=== PATIENT | male | born 1945 | race Caucasian/White ===

== ENCOUNTER 2021-06-04 10:02 | Inpatient (IN) | payer OTHER ==
--- OUTSIDE RECORDS SUMMARY | 2021-06-04 10:14 | XMS REPORT | Continuity of Care Document ---
:1945 Author Organization [facility] t Address [address] [place] [address] Care Team Providers Name Role Phone MARYELLEN EPPERSON Attending Clinician Unavailable KRISTY Attending Clinician Unavailable JOEY MARTINES Attending Clinician Unavailable TRENA MCGEE Attending Clinician Unavailable MARY Attending Clinician Unavailable SAI Attending Clinician Unavailable BRIDGET ROGERS Admitting Clinician Unavailable Payers Payer Name Policy Type Policy Number Effective Date Expiration Date S [facility] MEDICARE A B [id number] 2010 00:00:00 [employer] [facility] [place] [id number] 2010 00:00:00 MEDICARE PART A [id number] \T\ B - MEDICARE [facility] [id number] 2010 [facility] [place] 00:00:00 Problems This patient has no known problems. Allergies, Adverse Reactions, Alerts Allergy Allergy Status Severity Reaction(s) Onset Inactive Treating Comm ents Source Name Type Date Date Clinician NO KNOWN Allergy Active [facility] Medications This patient has no known medications. Vital Signs Vital Name Observation Time Observation Value Comments Source HEIGHT 2019-09-15 00:00:00 182.9 cm WEIGHT 2019-09-15 00:00:00 117.2 kg HEIGHT 2020-06-02 11:47:00 182.9 cm WEIGHT 2020-06-02 11:47:00 122.471 kg HEIGHT 2020-06-02 11:47:00 182.9 cm WEIGHT 2020-06-02 11:47:00 122.471 kg HEIGHT 2019-09-15 00:00:00 182.9 cm WEIGHT 2019-09-15 00:00:00 117.2 kg Procedures This patient has no known procedures. Encounters Start End Encounter Admission Attending Care Care Encounter Source Date/Time Date/Time Type Type Clinicians Facility Department ID 2019-09-15 Inpatient ER ANIRUDH [facility] Emergency [id number] [facility] 16:35:29 ROSS JENNINGS 2020-12-19 2020-12-19 Outpatient [facility] [id number] [facility] 15:47:55 16:50:59 [facility] 2020-12-19 2020-12-19 Outpatient ALBERTOMIRANDA [facility] [id number] [facility] 15:47:35 16:22:05 [facility] 2020-09-06 2020-09-06 Outpatient [facility] [id number] [facility] 13:24:55 15:41:25 [facility] 2020-09-05 2020-09-05 Outpatient SHANAE MARTINES, [facility] [id number] [facility] 00:00:00 00:00:00 DIPABEN 2020-06-27 2020-06-27 Outpatient [facility] [id number] [place] 00:00:00 00:00:[address] 2020-06-02 2020-06-02 Emergency ER [facility] Emergency [id number] [facility] 11:27:00 11:27:00 2020-05-30 2020-05-30 Outpatient [facility] [id number] [place] 00:00:00 00:00:[address] 2019-09-15 2019-09-15 Emergency [facility] [id number] [facility] 16:22:00 16:22:00 [id number] 2019-07-23 2019-07-23 Outpatient SIFF, [facility] [id number] [place] 00:00:00 00:00:00 JOHNNY [address] Results Test Description Test Time Test Comments Results Result Sourc e Comments CT, CHEST, WITHOUT 2020-09-06 Unlisted IV CONTRAST 14:48:00 Reason for Exam - Click [facility] Yes and Enter [facility] Reason CENTERName: [facility] TURNER->Samara freeman Reason : 1945 for Exam->HRCT Sex: scan of the M chest WO contrast. LTFU FI study, NAL REPORT PATIENT [id number]. ID: [id number] EXAM: CT Chest WITHOUT contrastINDICATION: Shortness of breathHRCT scan of the chest WO contrast. LTFU study, [id number]. COMPARISON: None TECHNIQUE:Chest was scanned utilizing a multidetector helical scanner from the lung apex through the level of the adrenal glands without administration of IV contrast. Absence of intravenous contrast decreases sensitivity for detection of lymphadenopathy and vascular pathology. Inspiration and expiration supine, and prone imaging was performed with axial, sagittal and coronal reconstructions. Research protocol was performed. IV CONTRAST: None COMPLICATIONS: None RADIATION DOSE: Total DLP: 2050.52 mGy*cm Estimated effective dose: (DLP x 0.014 x size factor) mSv CTDIvol has been reviewed. It is below the limits set by the Radiation Protocol Committee (RPC). FINDINGS:Annotations given as (series/image number) LINES/ TUBES: None. LUNGS AND AIRWAYS: No pulmonary consolidation or suspicious airspace opacity. Mild centrilobular emphysema. There is mild central bronchiectasis. There is mild subpleural reticulation in supine imaging that resolves prone compatible with dependent lower lobe atelectasis. There is mild mosaic attenuation on expiration compatible with mild air trapping. Trachea and main bronchi are clear. PLEURA: No pleural effusion or pneumothorax. HEART AND MEDIASTINUM: Included portions of the thyroid appear heterogeneous and mildly enlarged. No mediastinal, hilar or axillary lymphadenopathy. There are several prevascular lymph nodes containing calcification. The heart is moderately enlarged with particular prominence of the left atrium. There is no pericardial effusion. The thoracic aorta is atherosclerotic with scattered calcified plaque, and the upper aspect of an abdominal aortic stent graft and abdominal aortic aneurysm is visualized. The thoracic aorta is ectatic with the ascending aorta measuring 4.4 cm and proximal descending aorta measuring 3.5 cm. The main pulmonary artery is mildly dilated measuring 3.2 cm. There is extensive triple-vessel coronary calcification. UPPER ABDOMEN: There is suboptimal evaluation of the liver due to thin slicing and beam hardening artifact. There is a 1.1 cm hypodensity in the left lobe which is not further characterized. Calcified granulomata are seen in the spleen. There is a 1.4 cm hypodensity in the lateral upper pole left kidney, not further characterized due to artifact. BONES: No acute or suspicious bony abnormality. Degenerative changes are seen in the spine. SOFT TISSUES: Superficial surrounding soft tissue unremarkable. IMPRESSION: 1. No pulmonary consolidation or suspicious airspace opacity. Mild centrilobular emphysema and mild central bronchiectasis noted. Changes compatible with mild air trapping noted. 2. The thoracic aorta is ectatic measuring 4.4 cm ascending, and 3.5 cm proximal descending. There is partial visualization of an abdominal aortic aneurysm and stent graft. 3. Mild dilatation of the main pulmonary artery measuring 3.2 cm which may be seen in the setting of pulmonary hypertension. 4. Extensive triple-vessel coronary calcification. Cardiomegaly with enlargement of the left atrium noted. 5. Small hypodensities in the liver and left kidney are not characterized due to thin slice beam hardening artifact. Signed: Karine Milner Verified Date/Time: 09/06/2020 14:48:56 Reading Location: [facility] Reading Room [address] [place] [address] -GLUCOSE METER 2020-06-02 14:56:00 Test Item Value Reference Range Interpretation Comme nts POC-GLUCOSE METER ([facility]) 108 mg/dL 70-110 : TESTED AT [facility] [address] [facility] (test code = 1538) [facility] X, [address]: Shoe Laster/Techni lavinia ID = [id number] for ANA BEASLEY POCT-GLUCOSE [id number] 14:07:00 Test Item Value Reference Range Interpretation Comments POC-GLUCOSE METER 119 mg/dL 70-110 H : TESTED A T [facility] [address] ([place]) (test code = [facility] [place], 1538) [address]: Shoe Laster/Techni lavinia ID = [id number] for PAULIE CONNOR BASIC METABOLIC [id number] 12:51:00 Test Item Value Reference Range Interpretation Comments SODIUM (BEAKER) 141 meq/L 136-145 (test code = 381) POTASSIUM (BEAKER) 3.6 meq/L 3.5-5.1 (test code = 379) CHLORIDE (BEAKER) 98 meq/L 98-107 (test code = 382) CO2 (BEAKER) (test 32 meq/L 22-29 H code = 355) BLOOD UREA NITROGEN 17 mg/dL 7-21 (BEAKER) (test code = 354) CREATININE (BEAKER) 1.34 mg/dL 0.57-1.25 H (test code = 358) GLUCOSE RANDOM 51 mg/dL 70-105 L (BEAKER) (test code = 652) CALCIUM (BEAKER) 8.9 mg/dL 8.4-10.2 (test code = 697) EGFR (BEAKER) (test 52 mL/min/1.73 ESTIMA COCO GFR IS code = 1092) sq m NOT ACCURATE CREATININE CLEARANCE IN PREDICTING GLOMERULAR FILTRATION RATE . ESTIMATED GFR I S NOT APPLICABLE FOR DIALYSIS PATIEN TS. Shoe Laster ID - EDASICBC W/PLT COUNT & AUTO [id number] 12:33:00 Test Item Value Reference Range Interpretation Comments WHITE BLOOD CELL COUNT (BEAKER) 5.6 K/ L 3.5-10.5 (test code = 775) RED BLOOD CELL COUNT (BEAKER) 4.78 M/ L 4.63-6.08 (test code = 761) HEMOGLOBIN (BEAKER) (test code = 14.0 GM/DL 13.7-17.5 410) HEMATOCRIT (BEAKER) (test code = 40.7 % 40.1-51.0 411) MEAN CORPUSCULAR VOLUME (BEAKER) 85.1 fL 79.0-92.2 (test code = 753) MEAN CORPUSCULAR HEMOGLOBIN 29.3 pg 25.7-32.2 (BEAKER) (test code = 751) MEAN CORPUSCULAR HEMOGLOBIN CONC 34.4 GM/DL 32.3-36.5 (BEAKER) (test code = 752) RED CELL DISTRIBUTION WIDTH 13.2 % 11.6-14.4 (BEAKER) (test code = 412) PLATELET COUNT (BEAKER) (test 164 K/CU MM 150-450 code = 756) MEAN PLATELET VOLUME (BEAKER) 9.4 fL 9.4-12.4 (test code = 754) NUCLEATED RED BLOOD CELLS 0 /100 WBC 0-0 (BEAKER) (test code = 413) NEUTROPHILS RELATIVE PERCENT 70 % (BEAKER) (test code = 429) LYMPHOCYTES RELATIVE PERCENT 16 % (BEAKER) (test code = 430) MONOCYTES RELATIVE PERCENT 12 % (BEAKER) (test code = 431) EOSINOPHILS RELATIVE PERCENT 0 % (BEAKER) (test code = 432) BASOPHILS RELATIVE PERCENT 1 % (BEAKER) (test code = 437) NEUTROPHILS ABSOLUTE COUNT 3.94 K/ L 1.78-5.38 (BEAKER) (test code = 670) LYMPHOCYTES ABSOLUTE COUNT 0.92 K/ L 1.32-3.57 L (BEAKER) (test code = 414) MONOCYTES ABSOLUTE COUNT (BEAKER) 0.67 K/ L 0.30-0.82 (test code = 415) EOSINOPHILS ABSOLUTE COUNT 0.02 K/ L 0.04-0.54 L (BEAKER) (test code = 416) BASOPHILS ABSOLUTE COUNT (BEAKER) 0.04 K/ L 0.01-0.08 (test code = 417) IMMATURE GRANULOCYTES-RELATIVE 1 % 0-1 PERCENT (BEAKER) (test code = 2801) SARS-COV2/RT-PCR ([facility])2019-10-05 23:09:00 Test Item Value Reference Range Interpretation Comments SARS-COV2/RT-PCR (test code = Negative Not Detected, Negative 1479171) SARS-COV-2 PERFORMING LAB CPL (test code = 8789134) POCT-GLUCOSE [id number] 09:16:00 Test Item Value Reference Range Interpretation Comments POC-GLUCOSE METER 94 mg/dL 70-110 : TESTED A T [facility] [address] (BEAKER) (test code = [facility] [place], 1538) [address]: Shoe Laster/Techni lavinia ID = [id number] for BUTCH CASTRO BASIC METABOLIC [id number] 05:39:00 Test Item Value Reference Range Interpretation Comments SODIUM (BEAKER) 140 meq/L 136-145 (test code = 381) POTASSIUM (BEAKER) 4.1 meq/L 3.5-5.1 Specimen moderately (test code = 379) hemolyzed CHLORIDE (BEAKER) 105 meq/L 98-107 (test code = 382) CO2 (BEAKER) (test 26 meq/L 22-29 code = 355) BLOOD UREA NITROGEN 14 mg/dL 7-21 (BEAKER) (test code = 354) CREATININE (BEAKER) 0.68 mg/dL 0.57-1.25 Specimen moderately (test code = 358) hemolyzed GLUCOSE RANDOM 83 mg/dL 70-105 (BEAKER) (test code = 652) CALCIUM (BEAKER) 8.8 mg/dL 8.4-10.2 (test code = 697) EGFR (BEAKER) (test 114 mL/min/1.73 ESTIM ATED GFR IS code = 1092) sq m NOT ACCURATE CREATININE CLEARANCE IN PREDICTING GLOMERULAR FILTRATION RATE . ESTIMATED GFR I S NOT APPLICABLE FOR DIALYSIS PATIEN TS. Shoe Laster ID - PIAYA LCBC W/PLT COUNT & AUTO [id number] 04:18:00 Test Item Value Reference Range Interpretation Comments WHITE BLOOD CELL COUNT (BEAKER) 6.8 K/ L 3.5-10.5 (test code = 775) RED BLOOD CELL COUNT (BEAKER) 4.61 M/ L 4.63-6.08 L (test code = 761) HEMOGLOBIN (BEAKER) (test code = 14.1 GM/DL 13.7-17.5 410) HEMATOCRIT (BEAKER) (test code = 42.1 % 40.1-51.0 411) MEAN CORPUSCULAR VOLUME (BEAKER) 91.3 fL 79.0-92.2 (test code = 753) MEAN CORPUSCULAR HEMOGLOBIN 30.6 pg 25.7-32.2 (BEAKER) (test code = 751) MEAN CORPUSCULAR HEMOGLOBIN CONC 33.5 GM/DL 32.3-36.5 (BEAKER) (test code = 752) RED CELL DISTRIBUTION WIDTH 15.6 % 11.6-14.4 H (BEAKER) (test code = 412) PLATELET COUNT (BEAKER) (test 239 K/CU MM 150-450 code = 756) MEAN PLATELET VOLUME (BEAKER) 9.8 fL 9.4-12.4 (test code = 754) NUCLEATED RED BLOOD CELLS 0 /100 WBC 0-0 (BEAKER) (test code = 413) NEUTROPHILS RELATIVE PERCENT 63 % (BEAKER) (test code = 429) LYMPHOCYTES RELATIVE PERCENT 21 % (BEAKER) (test code = 430) MONOCYTES RELATIVE PERCENT 11 % (BEAKER) (test code = 431) EOSINOPHILS RELATIVE PERCENT 3 % (BEAKER) (test code = 432) BASOPHILS RELATIVE PERCENT 1 % (BEAKER) (test code = 437) NEUTROPHILS ABSOLUTE COUNT 4.30 K/ L 1.78-5.38 (BEAKER) (test code = 670) LYMPHOCYTES ABSOLUTE COUNT 1.42 K/ L 1.32-3.57 (BEAKER) (test code = 414) MONOCYTES ABSOLUTE COUNT (BEAKER) 0.75 K/ L 0.30-0.82 (test code = 415) EOSINOPHILS ABSOLUTE COUNT 0.23 K/ L 0.04-0.54 (BEAKER) (test code = 416) BASOPHILS ABSOLUTE COUNT (BEAKER) 0.04 K/ L 0.01-0.08 (test code = 417) IMMATURE GRANULOCYTES-RELATIVE 1 % 0-1 PERCENT (BEAKER) (test code = 2801) POCT-GLUCOSE [id number] 21:48:00 Test Item Value Reference Range Interpretation Comments POC-GLUCOSE METER 114 mg/dL 70-110 H : TESTED A T [facility] [address] (BEAKER) (test code = [facility] [place] [facility], 1538) [address]: Shoe Laster/Techni lavinia ID = [id number] for MARIA D MONREAL POCT-GLUCOSE [id number] 17:44:00 Test Item Value Reference Range Interpretation Comments POC-GLUCOSE METER 112 mg/dL 70-110 H : TESTED A T [facility] [address] (BEAKER) (test code [facility], = 1538) [address]: Shoe Laster/Techni lavinia ID = [id number] for GORDY VELA MA (Cont ract) [id number] 13:20:00 Test Item Value Reference Range Interpretation Comments FERRITIN (BEAKER) (test code = 354.57 ng/mL 5.00-275.00 H 361) Shoe Laster ID - NTPPOCT-GLUCOSE [id number] 12:02:00 Test Item Value Reference Range Interpretation Comments POC-GLUCOSE METER 136 mg/dL 70-110 H : TESTED A T [facility] [address] (BEAKER) (test code [facility], = 1538) [address]: Shoe Laster/Techni lavinia ID = [id number] for GORDY VELA MA (Cont ract) POCT-GLUCOSE [id number] 09:59:00 Test Item Value Reference Range Interpretation Comments POC-GLUCOSE METER 152 mg/dL 70-110 H : Notified RN/MD: [facility] [address] = 1538) [facility], [address]: Shoe Laster/Techni lavinia ID = [id number] for GORDY VELA MA (Cont ract) POCT-GLUCOSE [id number] 09:49:00 Test Item Value Reference Range Interpretation Comments POC-GLUCOSE METER 142 mg/dL 70-110 H : TESTED A T [facility] [address] (BEAKER) (test code = [facility], 153) [address]: Shoe Laster/Techni lavinia ID = [id number] for JAUN TIBURCIOEDIMARIA D POCT-GLUCOSE [id number] 09:42:00 Test Item Value Reference Range Interpretation Comments POC-GLUCOSE METER 147 mg/dL 70-110 H : TESTED A T [facility] [address] (BEAKER) (test code = [facility], 153) [address]: Shoe Laster/Techni lavinia ID = [id number] for QU FELIPE, LAW POCT-GLUCOSE [id number] 09:34:00 Test Item Value Reference Range Interpretation Comments POC-GLUCOSE METER 133 mg/dL 70-110 H : TESTED A T [facility] [address] (BEAKER) (test code = [facility], 153) [address]: Shoe Laster/Techni lavinia ID = [id number] for QU FELIPE, LAW POCT-GLUCOSE [id number] 09:33:00 Test Item Value Reference Range Interpretation Comments POC-GLUCOSE METER 106 mg/dL 70-110 : TESTED A T [facility] [address] (BEAKER) (test code = [facility], 153) [address]: Shoe Laster/Techni lavinia ID = [id number] for QU FELIPE, LWA [id number] 05:47:00 Test Item Value Reference Range Interpretation Comments PHOSPHORUS (BEAKER) (test code = 4.1 mg/dL 2.3-4.7 604) Shoe Laster ID - BRI [id number] 05:47:00 Test Item Value Reference Range Interpretation Comments MAGNESIUM (BEAKER) (test code = 2.0 mg/dL 1.6-2.6 627) Shoe Laster ID - BRI MCOMPREHENSIVE METABOLIC [id number] 05:47:00 Test Item Value Reference Range Interpretation Comments TOTAL PROTEIN 5.9 gm/dL 6.0-8.3 L (BEAKER) (test code = 770) ALBUMIN (BEAKER) 3.4 g/dL 3.5-5.0 L (test code = 1145) ALKALINE PHOSPHATASE 73 U/L 40-150 (BEAKER) (test code = 346) BILIRUBIN TOTAL 0.9 mg/dL 0.2-1.2 (BEAKER) (test code = 377) SODIUM (BEAKER) (test 140 meq/L 136-145 code = 381) POTASSIUM (BEAKER) 3.9 meq/L 3.5-5.1 (test code = 379) CHLORIDE (BEAKER) 106 meq/L 98-107 (test code = 382) CO2 (BEAKER) (test 28 meq/L 22-29 code = 355) BLOOD UREA NITROGEN 13 mg/dL 7-21 (BEAKER) (test code = 354) CREATININE (BEAKER) 0.82 mg/dL 0.57-1.25 (test code = 358) GLUCOSE RANDOM 98 mg/dL 70-105 (BEAKER) (test code = 652) CALCIUM (BEAKER) 8.8 mg/dL 8.4-10.2 (test code = 697) AST (SGOT) (BEAKER) 24 U/L 5-34 (test code = 353) ALT (SGPT) (BEAKER) 35 U/L 6-55 (test code = 347) EGFR (BEAKER) (test 92 mL/min/1.73 ESTIMA COCO GFR IS code = 1092) sq m NOT ACCURATE CREATININE CLEARANCE IN PREDICTING GLOMERULAR FILTRATION RATE . ESTIMATED GFR I S NOT APPLICABLE FOR DIALYSIS PATIEN TS. Shoe Laster ID - BRI [id number] 05:44:00 Test Item Value Reference Range Interpretation Comments PROTIME (BEAKER) (test code = 14.4 seconds 11.9-14.2 H 759) INR (BEAKER) (test code = 370) 1.2 <=5.9 PARTIAL THROMBOPLASTIN TIME 34.3 seconds 22.5-36.0 (BEAKER) (test code = 760) Effective 10/21/2018: PT Reference Range ChangeNew: 11.9-14.2 Previous: 11.7- 14.7RECOMMENDED COUMADIN/WARFARIN INR THERAPY RANGESSTANDARD DOSE: 2.0-3.0 Includes: PROPHYLAXIS for venous thrombosis, systemic embolization; TREATMENT for venous thrombosis and/or pulmonary embolus.HIGH RISK: Target INR is2.5-3.5 for patients wiht mechanical heart valves.CALCIUM, [id number] 05:18:00 Test Item Value Reference Range Interpretation Comments CALCIUM IONIZED (BEAKER) (test 1.14 mmol/L 1.12-1.27 code = 698) PH, BLOOD (BEAKER) (test code = 7.43 1810) CBC W/PLT COUNT & AUTO [id number] 05:17:00 Test Item Value Reference Range Interpretation Comments WHITE BLOOD CELL COUNT (BEAKER) 6.5 K/ L 3.5-10.5 (test code = 775) RED BLOOD CELL COUNT (BEAKER) 4.32 M/ L 4.63-6.08 L (test code = 761) HEMOGLOBIN (BEAKER) (test code = 13.3 GM/DL 13.7-17.5 L 410) HEMATOCRIT (BEAKER) (test code = 40.4 % 40.1-51.0 411) MEAN CORPUSCULAR VOLUME (BEAKER) 93.5 fL 79.0-92.2 H (test code = 753) MEAN CORPUSCULAR HEMOGLOBIN 30.8 pg 25.7-32.2 (BEAKER) (test code = 751) MEAN CORPUSCULAR HEMOGLOBIN CONC 32.9 GM/DL 32.3-36.5 (BEAKER) (test code = 752) RED CELL DISTRIBUTION WIDTH 15.7 % 11.6-14.4 H (BEAKER) (test code = 412) PLATELET COUNT (BEAKER) (test 194 K/CU MM 150-450 code = 756) MEAN PLATELET VOLUME (BEAKER) 9.7 fL 9.4-12.4 (test code = 754) NUCLEATED RED BLOOD CELLS 0 /100 WBC 0-0 (BEAKER) (test code = 413) NEUTROPHILS RELATIVE PERCENT 61 % (BEAKER) (test code = 429) LYMPHOCYTES RELATIVE PERCENT 21 % (BEAKER) (test code = 430) MONOCYTES RELATIVE PERCENT 12 % (BEAKER) (test code = 431) EOSINOPHILS RELATIVE PERCENT 4 % (BEAKER) (test code = 432) BASOPHILS RELATIVE PERCENT 1 % (BEAKER) (test code = 437) NEUTROPHILS ABSOLUTE COUNT 3.97 K/ L 1.78-5.38 (BEAKER) (test code = 670) LYMPHOCYTES ABSOLUTE COUNT 1.34 K/ L 1.32-3.57 (BEAKER) (test code = 414) MONOCYTES ABSOLUTE COUNT (BEAKER) 0.81 K/ L 0.30-0.82 (test code = 415) EOSINOPHILS ABSOLUTE COUNT 0.27 K/ L 0.04-0.54 (BEAKER) (test code = 416) BASOPHILS ABSOLUTE COUNT (BEAKER) 0.05 K/ L 0.01-0.08 (test code = 417) IMMATURE GRANULOCYTES-RELATIVE 1 % 0-1 PERCENT (BEAKER) (test code = 2801) [id number] 17:53:00 Test Item Value Reference Range Interpretation Comments MAGNESIUM (BEAKER) 2.1 mg/dL 1.6-2.6 Specimen slightly (test code = 627) hemolyzed Shoe Laster ID - NTPBASIC METABOLIC [id number] 17:53:00 Test Item Value Reference Range Interpretation Comments SODIUM (BEAKER) 136 meq/L 136-145 (test code = 381) POTASSIUM (BEAKER) 4.3 meq/L 3.5-5.1 Specimen slightly (test code = 379) hemolyzed CHLORIDE (BEAKER) 104 meq/L 98-107 (test code = 382) CO2 (BEAKER) (test 25 meq/L 22-29 code = 355) BLOOD UREA NITROGEN 18 mg/dL 7-21 (BEAKER) (test code = 354) CREATININE (BEAKER) 0.84 mg/dL 0.57-1.25 Specimen slightly (test code = 358) hemolyzed GLUCOSE RANDOM 144 mg/dL 70-105 H (BEAKER) (test code = 652) CALCIUM (BEAKER) 8.7 mg/dL 8.4-10.2 (test code = 697) EGFR (BEAKER) (test 89 mL/min/1.73 ESTIMA COCO GFR IS code = 1092) sq m NOT ACCURATE CREATININE CLEARANCE IN PREDICTING GLOMERULAR FILTRATION RATE . ESTIMATED GFR I S NOT APPLICABLE FOR DIALYSIS PATIEN TS. Shoe Laster ID - [id number] 05:37:00 Test Item Value Reference Range Interpretation Comments PHOSPHORUS (BEAKER) (test code = 4.2 mg/dL 2.3-4.7 604) Shoe Laster ID - [id number] 05:37:00 Test Item Value Reference Range Interpretation Comments MAGNESIUM (BEAKER) (test code = 2.2 mg/dL 1.6-2.6 627) Shoe Laster ID - DBCOMPREHENSIVE METABOLIC [id number] 05:37:00 Test Item Value Reference Range Interpretation Comments TOTAL PROTEIN 5.9 gm/dL 6.0-8.3 L (BEAKER) (test code = 770) ALBUMIN (BEAKER) 3.3 g/dL 3.5-5.0 L (test code = 1145) ALKALINE PHOSPHATASE 70 U/L 40-150 (BEAKER) (test code = 346) BILIRUBIN TOTAL 0.9 mg/dL 0.2-1.2 (BEAKER) (test code = 377) SODIUM (BEAKER) (test 139 meq/L 136-145 code = 381) POTASSIUM (BEAKER) 3.9 meq/L 3.5-5.1 (test code = 379) CHLORIDE (BEAKER) 105 meq/L 98-107 (test code = 382) CO2 (BEAKER) (test 26 meq/L 22-29 code = 355) BLOOD UREA NITROGEN 19 mg/dL 7-21 (BEAKER) (test code = 354) CREATININE (BEAKER) 0.81 mg/dL 0.57-1.25 (test code = 358) GLUCOSE RANDOM 78 mg/dL 70-105 (BEAKER) (test code = 652) CALCIUM (BEAKER) 8.4 mg/dL 8.4-10.2 (test code = 697) AST (SGOT) (BEAKER) 27 U/L 5-34 (test code = 353) ALT (SGPT) (BEAKER) 35 U/L 6-55 (test code = 347) EGFR (BEAKER) (test 93 mL/min/1.73 ESTIMA COCO GFR IS code = 1092) sq m NOT ACCURATE CREATININE CLEARANCE IN PREDICTING GLOMERULAR FILTRATION RATE . ESTIMATED GFR I S NOT APPLICABLE FOR DIALYSIS PATIEN TS. Shoe Laster ID - DBLACTATE DEHYDROGENASE (LDH)2019-10-03 05:37:00 Test Item Value Reference Range Interpretation Comments LACTATE DEHYDROGENASE (BEAKER) (test 346 U/L 125-220 H code = 635) Shoe Laster ID - DBPT/[id number] 05:36:00 Test Item Value Reference Range Interpretation Comments PROTIME (BEAKER) (test code = 15.0 seconds 11.9-14.2 H 759) INR (BEAKER) (test code = 370) 1.2 <=5.9 PARTIAL THROMBOPLASTIN TIME 35.2 seconds 22.5-36.0 (BEAKER) (test code = 760) Effective 10/21/2018: PT Reference Range ChangeNew: 11.9-14.2 Previous: 11.7- 14.7RECOMMENDED COUMADIN/WARFARIN INR THERAPY RANGESSTANDARD DOSE: 2.0-3.0 Includes: PROPHYLAXIS for venous thrombosis, systemic embolization; TREATMENT for venous thrombosis and/or pulmonary embolus.HIGH RISK: Target INR is2.5-3.5 for patients wiht mechanical heart valves.CALCIUM, [id number] 05:20:00 Test Item Value Reference Range Interpretation Comments CALCIUM IONIZED (BEAKER) (test 1.00 mmol/L 1.12-1.27 L code = 698) PH, BLOOD (BEAKER) (test code = 7.49 1810) CBC W/PLT COUNT & AUTO [id number] 05:11:00 Test Item Value Reference Range Interpretation Comments WHITE BLOOD CELL COUNT (BEAKER) 6.9 K/ L 3.5-10.5 (test code = 775) RED BLOOD CELL COUNT (BEAKER) 4.13 M/ L 4.63-6.08 L (test code = 761) HEMOGLOBIN (BEAKER) (test code = 12.7 GM/DL 13.7-17.5 L 410) HEMATOCRIT (BEAKER) (test code = 38.3 % 40.1-51.0 L 411) MEAN CORPUSCULAR VOLUME (BEAKER) 92.7 fL 79.0-92.2 H (test code = 753) MEAN CORPUSCULAR HEMOGLOBIN 30.8 pg 25.7-32.2 (BEAKER) (test code = 751) MEAN CORPUSCULAR HEMOGLOBIN CONC 33.2 GM/DL 32.3-36.5 (BEAKER) (test code = 752) RED CELL DISTRIBUTION WIDTH 15.8 % 11.6-14.4 H (BEAKER) (test code = 412) PLATELET COUNT (BEAKER) (test 206 K/CU MM 150-450 code = 756) MEAN PLATELET VOLUME (BEAKER) 10.2 fL 9.4-12.4 (test code = 754) NUCLEATED RED BLOOD CELLS 0 /100 WBC 0-0 (BEAKER) (test code = 413) NEUTROPHILS RELATIVE PERCENT 62 % (BEAKER) (test code = 429) LYMPHOCYTES RELATIVE PERCENT 20 % (BEAKER) (test code = 430) MONOCYTES RELATIVE PERCENT 12 % (BEAKER) (test code = 431) EOSINOPHILS RELATIVE PERCENT 4 % (BEAKER) (test code = 432) BASOPHILS RELATIVE PERCENT 1 % (BEAKER) (test code = 437) NEUTROPHILS ABSOLUTE COUNT 4.28 K/ L 1.78-5.38 (BEAKER) (test code = 670) LYMPHOCYTES ABSOLUTE COUNT 1.39 K/ L 1.32-3.57 (BEAKER) (test code = 414) MONOCYTES ABSOLUTE COUNT (BEAKER) 0.83 K/ L 0.30-0.82 H (test code = 415) EOSINOPHILS ABSOLUTE COUNT 0.25 K/ L 0.04-0.54 (BEAKER) (test code = 416) BASOPHILS ABSOLUTE COUNT (BEAKER) 0.07 K/ L 0.01-0.08 (test code = 417) IMMATURE GRANULOCYTES-RELATIVE 1 % 0-1 PERCENT (BEAKER) (test code = 2801) POCT-GLUCOSE [id number] 00:05:00 Test Item Value Reference Range Interpretation Comments POC-GLUCOSE METER 129 mg/dL 70-110 H : TESTED A T [facility] 6720 (BEAKER) (test code = [facility] [place], 1538) 18949: Shoe Laster/Techni lavinia ID = [id number] for BI YO, HERIBERTO POCT-GLUCOSE [id number] 22:49:00 Test Item Value Reference Range Interpretation Comments POC-GLUCOSE METER 58 mg/dL 70-110 L : TESTED A T [facility]20 (BEAKER) (test code = [facility] [place], 1538) 28860: Shoe Laster/Techni lavinia ID = [id number] for HERIBERTO TODD [id number] 16:58:00 Test Item Value Reference Range Interpretation Comments MAGNESIUM (BEAKER) 2.3 mg/dL 1.6-2.6 Specimen moderately (test code = 627) hemolyzed Shoe Laster ID - DBBASIC METABOLIC [id number] 16:58:00 Test Item Value Reference Range Interpretation Comments SODIUM (BEAKER) 139 meq/L 136-145 (test code = 381) POTASSIUM (BEAKER) 4.8 meq/L 3.5-5.1 Specimen moderately (test code = 379) hemolyzed CHLORIDE (BEAKER) 105 meq/L 98-107 (test code = 382) CO2 (BEAKER) (test 23 meq/L 22-29 code = 355) BLOOD UREA NITROGEN 19 mg/dL 7-21 (BEAKER) (test code = 354) CREATININE (BEAKER) 0.92 mg/dL 0.57-1.25 Specimen moderately (test code = 358) hemolyzed GLUCOSE RANDOM 72 mg/dL 70-105 (BEAKER) (test code = 652) CALCIUM (BEAKER) 8.6 mg/dL 8.4-10.2 (test code = 697) EGFR (BEAKER) (test 80 mL/min/1.73 ESTIMA COCO GFR IS code = 1092) sq m NOT ACCURATE CREATININE CLEARANCE IN PREDICTING GLOMERULAR FILTRATION RATE . ESTIMATED GFR I S NOT APPLICABLE FOR DIALYSIS PATIEN TS. Shoe Laster ID - [id number] 12:52:00 Test Item Value Reference Range Interpretation Comments FERRITIN (BEAKER) (test code = 392.65 ng/mL 5.00-275.00 H 361) Shoe Laster ID - HANSA [id number] 12:38:00 Test Item Value Reference Range Interpretation Comments PROCALCITONIN (BEAKER) (test code = < ng/mL <0.05 3036) SEPSIS RISK (ng/mL)Low: 0.05-0.50Intermediate: 0.51-2.00High: >=2.01C-REACTIVE [id number] 12:29:00 Test Item Value Reference Range Interpretation Comments C-REACTIVE PROTEIN (BEAKER) (test 0.46 mg/dL 0.00-0.50 code = 676) Shoe Laster ID - HANSA CPOCT-GLUCOSE [id number] 12:05:00 Test Item Value Reference Range Interpretation Comments POC-GLUCOSE METER 147 mg/dL 70-110 H : TESTED A T [facility] 6720 (BEAKER) (test code = [facility], 1538) 07523: Shoe Laster/Techni lavinia ID = [id number] for Donal Vides (contract) POCT-GLUCOSE [id number] 05:48:00 Test Item Value Reference Range Interpretation Comments POC-GLUCOSE METER 77 mg/dL 70-110 : TESTED A T [facility] 6720 (BEAKER) (test code = [facility], 1538) 34813: Shoe Laster/Techni lavinia ID = [id number] for Victoria Sharif PT/[id number] 04:16:00 Test Item Value Reference Range Interpretation Comments PROTIME (BEAKER) (test code = 15.3 seconds 11.9-14.2 H 759) INR (BEAKER) (test code = 370) 1.2 <=5.9 PARTIAL THROMBOPLASTIN TIME 36.9 seconds 22.5-36.0 H (BEAKER) (test code = 760) Effective 10/21/2018: PT Reference Range ChangeNew: 11.9-14.2 Previous: 11.7- 14.7RECOMMENDED COUMADIN/WARFARIN INR THERAPY RANGESSTANDARD DOSE: 2.0-3.0 Includes: PROPHYLAXIS for venous thrombosis, systemic embolization; TREATMENT for venous thrombosis and/or pulmonary embolus.HIGH RISK: Target INR is2.5-3.5 for patients wiht mechanical heart valves.PROTHROMBIN TIME/[id number] 04:15:00 Test Item Value Reference Range Interpretation Comments PROTIME (BEAKER) (test code = 15.3 seconds 11.9-14.2 H 759) INR (BEAKER) (test code = 370) 1.2 <=5.9 Effective 10/21/2018: PT Reference Range ChangeNew: 11.9-14.2 Previous: 11.7- 14.7RECOMMENDED COUMADIN/WARFARIN INR THERAPY RANGESSTANDARD DOSE: 2.0-3.0 Includes: PROPHYLAXIS for venous thrombosis, systemic embolization; TREATMENT for venous thrombosis and/or pulmonary embolus.HIGH RISK: Target INR is2.5-3.5 for patients wiht mechanical heart valves.COMPREHENSIVE METABOLIC PANEL 2019-10-02 04:12:00 Test Item Value Reference Range Interpretation Comments TOTAL PROTEIN 5.7 gm/dL 6.0-8.3 L (BEAKER) (test code = 770) ALBUMIN (BEAKER) 3.2 g/dL 3.5-5.0 L (test code = 1145) ALKALINE PHOSPHATASE 65 U/L 40-150 (BEAKER) (test code = 346) BILIRUBIN TOTAL 1.0 mg/dL 0.2-1.2 (BEAKER) (test code = 377) SODIUM (BEAKER) (test 142 meq/L 136-145 code = 381) POTASSIUM (BEAKER) 3.5 meq/L 3.5-5.1 (test code = 379) CHLORIDE (BEAKER) 108 meq/L 98-107 H (test code = 382) CO2 (BEAKER) (test 25 meq/L 22-29 code = 355) BLOOD UREA NITROGEN 22 mg/dL 7-21 H (BEAKER) (test code = 354) CREATININE (BEAKER) 1.06 mg/dL 0.57-1.25 (test code = 358) GLUCOSE RANDOM 76 mg/dL 70-105 (BEAKER) (test code = 652) CALCIUM (BEAKER) 7.7 mg/dL 8.4-10.2 L (test code = 697) AST (SGOT) (BEAKER) 20 U/L 5-34 (test code = 353) ALT (SGPT) (BEAKER) 32 U/L 6-55 (test code = 347) EGFR (BEAKER) (test 68 mL/min/1.73 ESTIMA COCO GFR IS code = 1092) sq m NOT ACCURATE CREATININE CLEARANCE IN PREDICTING GLOMERULAR FILTRATION RATE . ESTIMATED GFR I S NOT APPLICABLE FOR DIALYSIS PATIEN TS. Shoe Laster ID - [id number] 04:06:00 Test Item Value Reference Range Interpretation Comments PHOSPHORUS (BEAKER) (test code = 4.5 mg/dL 2.3-4.7 604) Shoe Laster ID - [id number] 04:06:00 Test Item Value Reference Range Interpretation Comments MAGNESIUM (BEAKER) (test code = 2.0 mg/dL 1.6-2.6 627) Shoe Laster ID - LACBC W/PLT COUNT & AUTO [id number] 03:57:00 Test Item Value Reference Range Interpretation Comments WHITE BLOOD CELL COUNT 6.2 K/ L 3.5-10.5 (BEAKER) (test code = 775) RED BLOOD CELL COUNT 3.28 M/ L 4.63-6.08 L (BEAKER) (test code = 761) HEMOGLOBIN (BEAKER) 10.1 GM/DL 13.7-17.5 L Discorda nt HGB (test code = 410) result com pared to previous result ; clinical correl ation required. HEMATOCRIT (BEAKER) 31.3 % 40.1-51.0 L (test code = 411) MEAN CORPUSCULAR 95.4 fL 79.0-92.2 H Discordant MCV VOLUME (BEAKER) (test result compared to code = 753) previous result ; clinical correl ation required. MEAN CORPUSCULAR 30.8 pg 25.7-32.2 HEMOGLOBIN (BEAKER) (test code = 751) MEAN CORPUSCULAR 32.3 GM/DL 32.3-36.5 HEMOGLOBIN CONC (BEAKER) (test code = 752) RED CELL DISTRIBUTION 16.1 % 11.6-14.4 H WIDTH (BEAKER) (test code = 412) PLATELET COUNT 180 K/CU MM 150-450 (BEAKER) (test code = 756) MEAN PLATELET VOLUME 10.0 fL 9.4-12.4 (BEAKER) (test code = 754) NUCLEATED RED BLOOD 0 /100 WBC 0-0 CELLS (BEAKER) (test code = 413) NEUTROPHILS RELATIVE 65 % PERCENT (BEAKER) (test code = 429) LYMPHOCYTES RELATIVE 20 % PERCENT (BEAKER) (test code = 430) MONOCYTES RELATIVE 12 % PERCENT (BEAKER) (test code = 431) EOSINOPHILS RELATIVE 2 % PERCENT (BEAKER) (test code = 432) BASOPHILS RELATIVE 1 % PERCENT (BEAKER) (test code = 437) NEUTROPHILS ABSOLUTE 3.98 K/ L 1.78-5.38 COUNT (BEAKER) (test code = 670) LYMPHOCYTES ABSOLUTE 1.21 K/ L 1.32-3.57 L COUNT (BEAKER) (test code = 414) MONOCYTES ABSOLUTE 0.73 K/ L 0.30-0.82 COUNT (BEAKER) (test code = 415) EOSINOPHILS ABSOLUTE 0.13 K/ L 0.04-0.54 COUNT (BEAKER) (test code = 416) BASOPHILS ABSOLUTE 0.04 K/ L 0.01-0.08 COUNT (BEAKER) (test code = 417) IMMATURE 1 % 0-1 GRANULOCYTES-RELATIVE PERCENT (BEAKER) (test code = 2801) CALCIUM, [id number] 03:41:00 Test Item Value Reference Range Interpretation Comments CALCIUM IONIZED (BEAKER) (test 0.97 mmol/L 1.12-1.27 L code = 698) PH, BLOOD (BEAKER) (test code = 7.40 1810) POCT-GLUCOSE [id number] 01:05:00 Test Item Value Reference Range Interpretation Comments POC-GLUCOSE METER 89 mg/dL 70-110 : TESTED A T [facility] 6720 (BEAKER) (test code = [facility], 1538) 41684: Shoe Laster/Techni lavinia ID = [id number] for Li, Victoria POCT-GLUCOSE [id number] 00:13:00 Test Item Value Reference Range Interpretation Comments POC-GLUCOSE METER 67 mg/dL 70-110 L : TESTED A T [facility] 6720 (BEAKER) (test code = [facility], 1538) 76701: Shoe Laster/Techni lavinia ID = [id number] for Li, Victoria POCT-GLUCOSE [id number] 20:46:00 Test Item Value Reference Range Interpretation Comments POC-GLUCOSE METER 100 mg/dL 70-110 : TESTED A T [facility] 6720 (BEAKER) (test code = [facility], 1538) 76019: Shoe Laster/Techni lavinia ID = [id number] for Li , Victoria [id number] 17:20:00 Test Item Value Reference Range Interpretation Comments MAGNESIUM (BEAKER) (test code = 2.3 mg/dL 1.6-2.6 627) Shoe Laster ID - BSBASIC METABOLIC [id number] 17:20:00 Test Item Value Reference Range Interpretation Comments SODIUM (BEAKER) 143 meq/L 136-145 (test code = 381) POTASSIUM (BEAKER) 3.8 meq/L 3.5-5.1 (test code = 379) CHLORIDE (BEAKER) 105 meq/L 98-107 (test code = 382) CO2 (BEAKER) (test 28 meq/L 22-29 code = 355) BLOOD UREA NITROGEN 23 mg/dL 7-21 H (BEAKER) (test code = 354) CREATININE (BEAKER) 1.09 mg/dL 0.57-1.25 (test code = 358) GLUCOSE RANDOM 95 mg/dL 70-105 (BEAKER) (test code = 652) CALCIUM (BEAKER) 9.3 mg/dL 8.4-10.2 (test code = 697) EGFR (BEAKER) (test 66 mL/min/1.73 ESTIMA COCO GFR IS code = 1092) sq m NOT ACCURATE CREATININE CLEARANCE IN PREDICTING GLOMERULAR FILTRATION RATE . ESTIMATED GFR I S NOT APPLICABLE FOR DIALYSIS PATIEN TS. Shoe Laster ID - BSPOCT-GLUCOSE [id number] 16:48:00 Test Item Value Reference Range Interpretation Comments POC-GLUCOSE METER 96 mg/dL 70-110 : TESTED A T [facility] 6720 (BEAKER) (test code = [facility], 1538) 14350: Shoe Laster/Techni lavinia ID = [id number] for SANDHYA Wynn NAHEED (contra ct) POCT-GLUCOSE [id number] 11:37:00 Test Item Value Reference Range Interpretation Comments POC-GLUCOSE METER 190 mg/dL 70-110 H : TESTED A T [facility] 6720 (BEAKER) (test code = [facility], 1538) 19953: Shoe Laster/Techni lavinia ID = [id number] for HENNA SHANKSIE (contra ct) POCT-GLUCOSE [id number] 06:05:00 Test Item Value Reference Range Interpretation Comments POC-GLUCOSE METER 167 mg/dL 70-110 H : TESTED A T [facility]20 (BEAKER) (test code = [facility], 1538) 43676: Shoe Laster/Techni lavinia ID = [id number] for ME ASHA, JUSTICE [id number] 04:37:00 Test Item Value Reference Range Interpretation Comments PHOSPHORUS (BEAKER) (test code = 4.6 mg/dL 2.3-4.7 604) Shoe Laster ID - NADIA [id number] 04:37:00 Test Item Value Reference Range Interpretation Comments MAGNESIUM (BEAKER) (test code = 2.2 mg/dL 1.6-2.6 627) Shoe Laster ID Osmani ZUNIGA WCOMPREHENSIVE METABOLIC [id number] 04:37:00 Test Item Value Reference Range Interpretation Comments TOTAL PROTEIN 6.2 gm/dL 6.0-8.3 (BEAKER) (test code = 770) ALBUMIN (BEAKER) 3.4 g/dL 3.5-5.0 L (test code = 1145) ALKALINE PHOSPHATASE 79 U/L 40-150 (BEAKER) (test code = 346) BILIRUBIN TOTAL 0.9 mg/dL 0.2-1.2 (BEAKER) (test code = 377) SODIUM (BEAKER) (test 144 meq/L 136-145 code = 381) POTASSIUM (BEAKER) 3.7 meq/L 3.5-5.1 (test code = 379) CHLORIDE (BEAKER) 110 meq/L 98-107 H (test code = 382) CO2 (BEAKER) (test 26 meq/L 22-29 code = 355) BLOOD UREA NITROGEN 18 mg/dL 7-21 (BEAKER) (test code = 354) CREATININE (BEAKER) 0.81 mg/dL 0.57-1.25 (test code = 358) GLUCOSE RANDOM 189 mg/dL 70-105 H (BEAKER) (test code = 652) CALCIUM (BEAKER) 9.0 mg/dL 8.4-10.2 (test code = 697) AST (SGOT) (BEAKER) 26 U/L 5-34 (test code = 353) ALT (SGPT) (BEAKER) 43 U/L 6-55 (test code = 347) EGFR (BEAKER) (test 93 mL/min/1.73 ESTIMA COCO GFR IS code = 1092) sq m NOT ACCURATE CREATININE CLEARANCE IN PREDICTING GLOMERULAR FILTRATION RATE . ESTIMATED GFR I S NOT APPLICABLE FOR DIALYSIS PATIEN TS. Shoe Laster ID Osmani ZUNIGA WLACTATE DEHYDROGENASE (LDH)2019-10-01 04:37:00 Test Item Value Reference Range Interpretation Comments LACTATE DEHYDROGENASE (BEAKER) (test 673 U/L 125-220 H code = 635) Shoe Laster ID Osmani ZUNIGA [id number] 04:24:00 Test Item Value Reference Range Interpretation Comments PARTIAL THROMBOPLASTIN TIME 61.9 seconds 22.5-36.0 H (BEAKER) (test code = 760) 6 hours after starting heparin infusion and as indicated per sliding scaleCBC W/PLT COUNT & AUTO [id number] 04:08:00 Test Item Value Reference Range Interpretation Comments WHITE BLOOD CELL COUNT (BEAKER) 7.5 K/ L 3.5-10.5 (test code = 775) RED BLOOD CELL COUNT (BEAKER) 4.42 M/ L 4.63-6.08 L (test code = 761) HEMOGLOBIN (BEAKER) (test code = 13.2 GM/DL 13.7-17.5 L 410) HEMATOCRIT (BEAKER) (test code = 40.2 % 40.1-51.0 411) MEAN CORPUSCULAR VOLUME (BEAKER) 91.0 fL 79.0-92.2 (test code = 753) MEAN CORPUSCULAR HEMOGLOBIN 29.9 pg 25.7-32.2 (BEAKER) (test code = 751) MEAN CORPUSCULAR HEMOGLOBIN CONC 32.8 GM/DL 32.3-36.5 (BEAKER) (test code = 752) RED CELL DISTRIBUTION WIDTH 15.9 % 11.6-14.4 H (BEAKER) (test code = 412) PLATELET COUNT (BEAKER) (test 209 K/CU MM 150-450 code = 756) MEAN PLATELET VOLUME (BEAKER) 9.9 fL 9.4-12.4 (test code = 754) NUCLEATED RED BLOOD CELLS 0 /100 WBC 0-0 (BEAKER) (test code = 413) NEUTROPHILS RELATIVE PERCENT 68 % (BEAKER) (test code = 429) LYMPHOCYTES RELATIVE PERCENT 18 % (BEAKER) (test code = 430) MONOCYTES RELATIVE PERCENT 10 % (BEAKER) (test code = 431) EOSINOPHILS RELATIVE PERCENT 3 % (BEAKER) (test code = 432) BASOPHILS RELATIVE PERCENT 1 % (BEAKER) (test code = 437) NEUTROPHILS ABSOLUTE COUNT 5.05 K/ L 1.78-5.38 (BEAKER) (test code = 670) LYMPHOCYTES ABSOLUTE COUNT 1.35 K/ L 1.32-3.57 (BEAKER) (test code = 414) MONOCYTES ABSOLUTE COUNT (BEAKER) 0.74 K/ L 0.30-0.82 (test code = 415) EOSINOPHILS ABSOLUTE COUNT 0.19 K/ L 0.04-0.54 (BEAKER) (test code = 416) BASOPHILS ABSOLUTE COUNT (BEAKER) 0.05 K/ L 0.01-0.08 (test code = 417) IMMATURE GRANULOCYTES-RELATIVE 1 % 0-1 PERCENT (BEAKER) (test code = 2801) BLOOD GAS, [id number] 04:05:00 Test Item Value Reference Range Interpretation Comments PH ARTERIAL (BEAKER) (test code = 7.46 7.35-7.45 H 383) PCO2 ARTERIAL (BEAKER) (test code 38 mmHg 35-45 = 384) PO2 ARTERIAL (BEAKER) (test code = 81 mmHg 80-90 385) O2 SATURATION ARTERIAL (BEAKER) 96.7 % 96.0-97.0 (test code = 386) HCO3 ARTERIAL (BEAKER) (test code 26 mmol/L 21-29 = 388) BASE EXCESS ARTERIAL (BEAKER) 2.4 mmol/L -2.0-3.0 (test code = 387) PATIENT TEMPERATURE (BEAKER) (test 36.5 C code = 1818) FIO2 (BEAKER) (test code = 1819) 60.0 % CALCIUM, [id number] 04:05:00 Test Item Value Reference Range Interpretation Comments CALCIUM IONIZED (BEAKER) (test 1.14 mmol/L 1.12-1.27 code = 698) PH, BLOOD (BEAKER) (test code = 7.45 1810) [id number] 00:28:00 Test Item Value Reference Range Interpretation Comments POTASSIUM (BEAKER) (test code = 3.8 meq/L 3.5-5.1 379) Shoe Laster ID - PIAYA LPOCT-GLUCOSE [id number] 00:15:00 Test Item Value Reference Range Interpretation Comments POC-GLUCOSE METER 126 mg/dL 70-110 H : TESTED A T [facility] (BEAKER) (test code = [facility] [place], 1538) 00410: Shoe Laster/Techni lavinia ID = [id number] for ME ASHA, JUSTICE BLOOD GAS, [id number] 21:09:00 Test Item Value Reference Range Interpretation Comments PH ARTERIAL (BEAKER) (test code = 7.46 7.35-7.45 H 383) PCO2 ARTERIAL (BEAKER) (test code 39 mmHg 35-45 = 384) PO2 ARTERIAL (BEAKER) (test code = 87 mmHg 80-90 385) O2 SATURATION ARTERIAL (BEAKER) 97.1 % 96.0-97.0 H (test code = 386) HCO3 ARTERIAL (BEAKER) (test code 27 mmol/L 21-29 = 388) BASE EXCESS ARTERIAL (BEAKER) 3.0 mmol/L -2.0-3.0 (test code = 387) PATIENT TEMPERATURE (BEAKER) (test 37.0 C code = 1818) FIO2 (BEAKER) (test code = 1819) 60.0 % [id number] 21:05:00 Test Item Value Reference Range Interpretation Comments MAGNESIUM (BEAKER) (test code = 2.3 mg/dL 1.6-2.6 627) Shoe Laster ID - DBBASIC METABOLIC [id number] 21:05:00 Test Item Value Reference Range Interpretation Comments SODIUM (BEAKER) 142 meq/L 136-145 (test code = 381) POTASSIUM (BEAKER) 3.3 meq/L 3.5-5.1 L (test code = 379) CHLORIDE (BEAKER) 109 meq/L 98-107 H (test code = 382) CO2 (BEAKER) (test 26 meq/L 22-29 code = 355) BLOOD UREA NITROGEN 18 mg/dL 7-21 (BEAKER) (test code = 354) CREATININE (BEAKER) 0.80 mg/dL 0.57-1.25 (test code = 358) GLUCOSE RANDOM 167 mg/dL 70-105 H (BEAKER) (test code = 652) CALCIUM (BEAKER) 8.3 mg/dL 8.4-10.2 L (test code = 697) EGFR (BEAKER) (test 94 mL/min/1.73 ESTIMA COCO GFR IS code = 1092) sq m NOT ACCURATE CREATININE CLEARANCE IN PREDICTING GLOMERULAR FILTRATION RATE . ESTIMATED GFR I S NOT APPLICABLE FOR DIALYSIS PATIEN TS. Shoe Laster ID - DBPOCT-GLUCOSE [id number] 18:20:00 Test Item Value Reference Range Interpretation Comments POC-GLUCOSE METER 171 mg/dL 70-110 H : TESTED A T [facility] (BEAKER) (test code = [facility] [place], 1538) 81332: Shoe Laster/Techni lavinia ID = [id number] for NAHEED SHANKS (contra ct) BASIC METABOLIC [id number] 16:52:00 Test Item Value Reference Range Interpretation Comments SODIUM (BEAKER) 142 meq/L 136-145 (test code = 381) POTASSIUM (BEAKER) 3.6 meq/L 3.5-5.1 Specimen slightly (test code = 379) hemolyzed CHLORIDE (BEAKER) 110 meq/L 98-107 H (test code = 382) CO2 (BEAKER) (test 25 meq/L 22-29 code = 355) BLOOD UREA NITROGEN 18 mg/dL 7-21 (BEAKER) (test code = 354) CREATININE (BEAKER) 0.80 mg/dL 0.57-1.25 Specimen slightly (test code = 358) hemolyzed GLUCOSE RANDOM 186 mg/dL 70-105 H (BEAKER) (test code = 652) CALCIUM (BEAKER) 8.3 mg/dL 8.4-10.2 L (test code = 697) EGFR (BEAKER) (test 94 mL/min/1.73 ESTIMA COCO GFR IS code = 1092) sq m NOT ACCURATE CREATININE CLEARANCE IN PREDICTING GLOMERULAR FILTRATION RATE . ESTIMATED GFR I S NOT APPLICABLE FOR DIALYSIS PATIEN TS. Shoe Laster ID - DBBLOOD GAS, [id number] 16:30:00 Test Item Value Reference Range Interpretation Comments PH ARTERIAL (BEAKER) (test code = 7.48 7.35-7.45 H 383) PCO2 ARTERIAL (BEAKER) (test code 33 mmHg 35-45 L = 384) PO2 ARTERIAL (BEAKER) (test code = 68 mmHg 80-90 L 385) O2 SATURATION ARTERIAL (BEAKER) 95.2 % 96.0-97.0 L (test code = 386) HCO3 ARTERIAL (BEAKER) (test code 24 mmol/L 21-29 = 388) BASE EXCESS ARTERIAL (BEAKER) 1.4 mmol/L -2.0-3.0 (test code = 387) PATIENT TEMPERATURE (BEAKER) (test 36.5 C code = 1818) FIO2 (BEAKER) (test code = 1819) 50.0 % CALCIUM, [id number] 16:30:00 Test Item Value Reference Range Interpretation Comments CALCIUM IONIZED (BEAKER) (test 1.11 mmol/L 1.12-1.27 L code = 698) PH, BLOOD (BEAKER) (test code = 7.48 1810) POCT-GLUCOSE [id number] 13:29:00 Test Item Value Reference Range Interpretation Comments POC-GLUCOSE METER 174 mg/dL 70-110 H : TESTED A T [facility] (BEAKER) (test code = [facility] [place], 1538) 79130: Shoe Laster/Techni lavinia ID = [id number] for JOI KELLY BLOOD GAS, [id number] 12:08:00 Test Item Value Reference Range Interpretation Comments PH ARTERIAL (BEAKER) (test code = 7.47 7.35-7.45 H 383) PCO2 ARTERIAL (BEAKER) (test code 33 mmHg 35-45 L = 384) PO2 ARTERIAL (BEAKER) (test code = 189 mmHg 80-90 H 385) O2 SATURATION ARTERIAL (BEAKER) 99.4 % 96.0-97.0 H (test code = 386) HCO3 ARTERIAL (BEAKER) (test code 23 mmol/L 21-29 = 388) BASE EXCESS ARTERIAL (BEAKER) 0.2 mmol/L -2.0-3.0 (test code = 387) PATIENT TEMPERATURE (BEAKER) (test 37.0 C code = 1818) FIO2 (BEAKER) (test code = 1819) 50.0 % [id number] 11:04:00 Test Item Value Reference Range Interpretation Comments FERRITIN (BEAKER) (test code = 444.49 ng/mL 5.00-275.00 H 361) Shoe Laster ID - HANSA [id number] 09:57:00 Test Item Value Reference Range Interpretation Comments PHOSPHORUS (BEAKER) (test code = 4.1 mg/dL 2.3-4.7 604) Shoe Laster ID - BRI [id number] 09:57:00 Test Item Value Reference Range Interpretation Comments MAGNESIUM (BEAKER) (test code = 2.2 mg/dL 1.6-2.6 627) Shoe Laster ID - BRI MBASIC METABOLIC [id number] 09:57:00 Test Item Value Reference Range Interpretation Comments SODIUM (BEAKER) 139 meq/L 136-145 (test code = 381) POTASSIUM (BEAKER) 3.7 meq/L 3.5-5.1 (test code = 379) CHLORIDE (BEAKER) 109 meq/L 98-107 H (test code = 382) CO2 (BEAKER) (test 22 meq/L 22-29 code = 355) BLOOD UREA NITROGEN 20 mg/dL 7-21 (BEAKER) (test code = 354) CREATININE (BEAKER) 0.87 mg/dL 0.57-1.25 (test code = 358) GLUCOSE RANDOM 234 mg/dL 70-105 H (BEAKER) (test code = 652) CALCIUM (BEAKER) 8.2 mg/dL 8.4-10.2 L (test code = 697) EGFR (BEAKER) (test 86 mL/min/1.73 ESTIMA COCO GFR IS code = 1092) sq m NOT ACCURATE CREATININE CLEARANCE IN PREDICTING GLOMERULAR FILTRATION RATE . ESTIMATED GFR I S NOT APPLICABLE FOR DIALYSIS PATIEN TS. Shoe Laster ID - BRI [id number] 09:49:00 Test Item Value Reference Range Interpretation Comments D-DIMER QUANTITATIVE (BEAKER) 3.92 MG/L FEU <0.50 H (test code = 671) Intended Use: The D-Dimer Assay can be used to aid in the diagnosis of Deep Vein Thrombosis (DVT) and Pulmonary Embolism Disease (PED).In patients with low pre- test probability, various studies concerning STA Liatest D-dimer test have reported that with a cutoff value of 0.50 MG/L FEU, the Negative Predictive Value (NPV) regarding the exclusion of thrombosis is within 95-100% range. [id number] 09:48:00 Test Item Value Reference Range Interpretation Comments PROTIME (BEAKER) (test code = 14.2 seconds 11.9-14.2 759) INR (BEAKER) (test code = 370) 1.1 <=5.9 PARTIAL THROMBOPLASTIN TIME 72.0 seconds 22.5-36.0 H (BEAKER) (test code = 760) Effective 10/21/2018: PT Reference Range ChangeNew: 11.9-14.2 Previous: 11.7- 14.7RECOMMENDED COUMADIN/WARFARIN INR THERAPY RANGESSTANDARD DOSE: 2.0-3.0 Includes: PROPHYLAXIS for venous thrombosis, systemic embolization; TREATMENT for venous thrombosis and/or pulmonary embolus.HIGH RISK: Target INR is2.5-3.5 for patients wiht mechanical heart valves.SARS-COV2/RT-PCR ([facility]) 2019-09-30 06:25:00 Test Item Value Reference Range Interpretation Comments SARS-COV2/RT-PCR (test code = Positive Not Detected, Negative A A [id number]) SARS-COV-2 PERFORMING LAB CPL (test code = 1252070) [id number] 05:34:00 Test Item Value Reference Range Interpretation Comments PROTIME (BEAKER) (test code = 14.1 seconds 11.9-14.2 759) INR (BEAKER) (test code = 370) 1.1 <=5.9 PARTIAL THROMBOPLASTIN TIME 76.3 seconds 22.5-36.0 H (BEAKER) (test code = 760) Effective 10/21/2018: PT Reference Range ChangeNew: 11.9-14.2 Previous: 11.7- 14.7RECOMMENDED COUMADIN/WARFARIN INR THERAPY RANGESSTANDARD DOSE: 2.0-3.0 Includes: PROPHYLAXIS for venous thrombosis, systemic embolization; TREATMENT for venous thrombosis and/or pulmonary embolus.HIGH RISK: Target INR is2.5-3.5 for patients wiht mechanical heart valves.POCT-GLUCOSE [id number] 05:26:00 Test Item Value Reference Range Interpretation Comments POC-GLUCOSE METER 184 mg/dL 70-110 H : TESTED A T [facility] 6720 (BEAKER) (test code = KVNG [place], 1538) [id number]: Shoe Laster/Techni lavinia ID = [id number] for ESTEPHANIA LAMBMUSAJEFFERSON [id number] 04:14:00 Test Item Value Reference Range Interpretation Comments PARTIAL THROMBOPLASTIN TIME 73.7 seconds 22.5-36.0 H (BEAKER) (test code = 760) 6 hours after starting heparin infusion and as indicated per sliding scale CALCIUM, [id number] 04:13:00 Test Item Value Reference Range Interpretation Comments CALCIUM IONIZED (BEAKER) (test 1.09 mmol/L 1.12-1.27 L code = 698) PH, BLOOD (BEAKER) (test code = 7.44 1810) BLOOD GAS, [id number] 04:13:00 Test Item Value Reference Range Interpretation Comments PH ARTERIAL (BEAKER) (test code = 7.45 7.35-7.45 383) PCO2 ARTERIAL (BEAKER) (test code 34 mmHg 35-45 L = 384) PO2 ARTERIAL (BEAKER) (test code 73 mmHg 80-90 L = 385) O2 SATURATION ARTERIAL (BEAKER) 95.4 % 96.0-97.0 L (test code = 386) HCO3 ARTERIAL (BEAKER) (test code 23 mmol/L 21-29 = 388) BASE EXCESS ARTERIAL (BEAKER) -0.4 mmol/L -2.0-3.0 (test code = 387) PATIENT TEMPERATURE (BEAKER) 37.0 C (test code = 1818) FIO2 (BEAKER) (test code = 1819) 35.0 % [id number] 03:54:00 Test Item Value Reference Range Interpretation Comments PHOSPHORUS (BEAKER) (test code = 4.3 mg/dL 2.3-4.7 604) Shoe Laster ID - BRI [id number] 03:54:00 Test Item Value Reference Range Interpretation Comments MAGNESIUM (BEAKER) (test code = 2.1 mg/dL 1.6-2.6 627) Shoe Laster ID - BRI MCOMPREHENSIVE METABOLIC [id number] 03:54:00 Test Item Value Reference Range Interpretation Comments TOTAL PROTEIN 6.0 gm/dL 6.0-8.3 (BEAKER) (test code = 770) ALBUMIN (BEAKER) 3.3 g/dL 3.5-5.0 L (test code = 1145) ALKALINE PHOSPHATASE 59 U/L 40-150 (BEAKER) (test code = 346) BILIRUBIN TOTAL 0.9 mg/dL 0.2-1.2 (BEAKER) (test code = 377) SODIUM (BEAKER) (test 141 meq/L 136-145 code = 381) POTASSIUM (BEAKER) 3.4 meq/L 3.5-5.1 L (test code = 379) CHLORIDE (BEAKER) 110 meq/L 98-107 H (test code = 382) CO2 (BEAKER) (test 23 meq/L 22-29 code = 355) BLOOD UREA NITROGEN 19 mg/dL 7-21 (BEAKER) (test code = 354) CREATININE (BEAKER) 0.85 mg/dL 0.57-1.25 (test code = 358) GLUCOSE RANDOM 180 mg/dL 70-105 H (BEAKER) (test code = 652) CALCIUM (BEAKER) 8.0 mg/dL 8.4-10.2 L (test code = 697) AST (SGOT) (BEAKER) 18 U/L 5-34 (test code = 353) ALT (SGPT) (BEAKER) 42 U/L 6-55 (test code = 347) EGFR (BEAKER) (test 88 mL/min/1.73 ESTIMA COCO GFR IS code = 1092) sq m NOT ACCURATE CREATININE CLEARANCE IN PREDICTING GLOMERULAR FILTRATION RATE . ESTIMATED GFR I S NOT APPLICABLE FOR DIALYSIS PATIEN TS. Shoe Laster ID - BRI MCBC W/PLT COUNT & AUTO [id number] 03:35:00 Test Item Value Reference Range Interpretation Comments WHITE BLOOD CELL COUNT (BEAKER) 8.6 K/ L 3.5-10.5 (test code = 775) RED BLOOD CELL COUNT (BEAKER) 4.23 M/ L 4.63-6.08 L (test code = 761) HEMOGLOBIN (BEAKER) (test code = 13.0 GM/DL 13.7-17.5 L 410) HEMATOCRIT (BEAKER) (test code = 38.8 % 40.1-51.0 L 411) MEAN CORPUSCULAR VOLUME (BEAKER) 91.7 fL 79.0-92.2 (test code = 753) MEAN CORPUSCULAR HEMOGLOBIN 30.7 pg 25.7-32.2 (BEAKER) (test code = 751) MEAN CORPUSCULAR HEMOGLOBIN CONC 33.5 GM/DL 32.3-36.5 (BEAKER) (test code = 752) RED CELL DISTRIBUTION WIDTH 15.9 % 11.6-14.4 H (BEAKER) (test code = 412) PLATELET COUNT (BEAKER) (test 191 K/CU MM 150-450 code = 756) MEAN PLATELET VOLUME (BEAKER) 10.2 fL 9.4-12.4 (test code = 754) NUCLEATED RED BLOOD CELLS 0 /100 WBC 0-0 (BEAKER) (test code = 413) NEUTROPHILS RELATIVE PERCENT 72 % (BEAKER) (test code = 429) LYMPHOCYTES RELATIVE PERCENT 16 % (BEAKER) (test code = 430) MONOCYTES RELATIVE PERCENT 8 % (BEAKER) (test code = 431) EOSINOPHILS RELATIVE PERCENT 2 % (BEAKER) (test code = 432) BASOPHILS RELATIVE PERCENT 1 % (BEAKER) (test code = 437) NEUTROPHILS ABSOLUTE COUNT 6.13 K/ L 1.78-5.38 H (BEAKER) (test code = 670) LYMPHOCYTES ABSOLUTE COUNT 1.38 K/ L 1.32-3.57 (BEAKER) (test code = 414) MONOCYTES ABSOLUTE COUNT (BEAKER) 0.68 K/ L 0.30-0.82 (test code = 415) EOSINOPHILS ABSOLUTE COUNT 0.17 K/ L 0.04-0.54 (BEAKER) (test code = 416) BASOPHILS ABSOLUTE COUNT (BEAKER) 0.04 K/ L 0.01-0.08 (test code = 417) IMMATURE GRANULOCYTES-RELATIVE 2 % 0-1 H PERCENT (BEAKER) (test code = 2801) PT/[id number] 00:07:00 Test Item Value Reference Range Interpretation Comments PROTIME (BEAKER) (test code = 14.4 seconds 11.9-14.2 H 759) INR (BEAKER) (test code = 370) 1.2 <=5.9 PARTIAL THROMBOPLASTIN TIME 71.1 seconds 22.5-36.0 H (BEAKER) (test code = 760) Effective 10/21/2018: PT Reference Range ChangeNew: 11.9-14.2 Previous: 11.7- 14.7RECOMMENDED COUMADIN/WARFARIN INR THERAPY RANGESSTANDARD DOSE: 2.0-3.0 Includes: PROPHYLAXIS for venous thrombosis, systemic embolization; TREATMENT for venous thrombosis and/or pulmonary embolus.HIGH RISK: Target INR is2.5-3.5 for patients wiht mechanical heart valves.[id number] 23:55:00 Test Item Value Reference Range Interpretation Comments POTASSIUM (BEAKER) (test code = 3.3 meq/L 3.5-5.1 L 379) Shoe Laster ID - BSPOCT-GLUCOSE [id number] 23:47:00 Test Item Value Reference Range Interpretation Comments POC-GLUCOSE METER 191 mg/dL 70-110 H : TESTED A T [facility] 6720 (BEAKER) (test code = [place], 1538) [id number]: Shoe Laster/Techni lavinia ID = [id number] for Victoria Sharif BLOOD GAS, [id number] 21:53:00 Test Item Value Reference Range Interpretation Comments PH ARTERIAL (BEAKER) (test code = 7.46 7.35-7.45 H 383) PCO2 ARTERIAL (BEAKER) (test code 33 mmHg 35-45 L = 384) PO2 ARTERIAL (BEAKER) (test code 85 mmHg 80-90 = 385) O2 SATURATION ARTERIAL (BEAKER) 97.0 % 96.0-97.0 (test code = 386) HCO3 ARTERIAL (BEAKER) (test code 23 mmol/L 21-29 = 388) BASE EXCESS ARTERIAL (BEAKER) -0.4 mmol/L -2.0-3.0 (test code = 387) PATIENT TEMPERATURE (BEAKER) 37.0 C (test code = 1818) FIO2 (BEAKER) (test code = 1819) 35.0 % TROPONIN [id number] 17:55:00 Test Item Value Reference Range Interpretation Comments TROPONIN I (BEAKER) (test code = 397) < ng/mL 0.00-0.03 Troponin I (TnI) levels must be interpreted in the context of the presenting symptoms and the clinical findings. Elevated TnI levels indicate myocardial damage, but are not specific for ischemic heart disease. Elevated TnI levels are seen in patients with other cardiac conditions (including myocarditis and congestive heart failure), and slight TnI elevations occur in patients with other conditions, including sepsis, renal failure, acidosis, acute neurological disease, and persistent tachyarrhythmia.Shoe Laster ID - BSBASIC METABOLIC PANEL 2019-09-29 17:47:00 Test Item Value Reference Range Interpretation Comments SODIUM (BEAKER) 141 meq/L 136-145 (test code = 381) POTASSIUM (BEAKER) 3.6 meq/L 3.5-5.1 Specimen slightly (test code = 379) hemolyzed CHLORIDE (BEAKER) 111 meq/L 98-107 H (test code = 382) CO2 (BEAKER) (test 22 meq/L 22-29 code = 355) BLOOD UREA NITROGEN 17 mg/dL 7-21 (BEAKER) (test code = 354) CREATININE (BEAKER) 0.82 mg/dL 0.57-1.25 Specimen slightly (test code = 358) hemolyzed GLUCOSE RANDOM 249 mg/dL 70-105 H (BEAKER) (test code = 652) CALCIUM (BEAKER) 8.2 mg/dL 8.4-10.2 L (test code = 697) EGFR (BEAKER) (test 92 mL/min/1.73 ESTIMA COCO GFR IS code = 1092) sq m NOT ACCURATE CREATININE CLEARANCE IN PREDICTING GLOMERULAR FILTRATION RATE . ESTIMATED GFR I S NOT APPLICABLE FOR DIALYSIS PATIEN TS. Shoe Laster ID - BSPT/[id number] 17:41:00 Test Item Value Reference Range Interpretation Comments PROTIME (BEAKER) (test code = 14.3 seconds 11.9-14.2 H 759) INR (BEAKER) (test code = 370) 1.1 <=5.9 PARTIAL THROMBOPLASTIN TIME 47.6 seconds 22.5-36.0 H (BEAKER) (test code = 760) Effective 10/21/2018: PT Reference Range ChangeNew: 11.9-14.2 Previous: 11.7- 14.7RECOMMENDED COUMADIN/WARFARIN INR THERAPY RANGESSTANDARD DOSE: 2.0-3.0 Includes: PROPHYLAXIS for venous thrombosis, systemic embolization; TREATMENT for venous thrombosis and/or pulmonary embolus.HIGH RISK: Target INR is2.5-3.5 for patients wiht mechanical heart valves.POCT-GLUCOSE [id number] 17:27:00 Test Item Value Reference Range Interpretation Comments POC-GLUCOSE METER 226 mg/dL 70-110 H : [facility] ([facility]ER[facility] (test code = [facility] [place], 1538) [address]: Shoe Laster/Techni lavinia ID = [id number] for MIRNA ORTIZ BLOOD [id number] 15:00:00 Test Item Value Reference Range Interpretation Comments CULTURE (BEAKER) (test No growth in 5 days code = 1095) BLOOD [id number] 15:00:00 Test Item Value Reference Range Interpretation Comments CULTURE (BEAKER) (test No growth in 5 days code = 1095) RAD, CHEST, 1 VIEW, NON [id number] 13:42:00Reason for exam:- >COVACTAShould this be performed at the bedside?->YesFINAL REPORT RAD, CHEST, 1 VIEW, NON DEPT INDICATION: COVACTA COMPARISON: Prio r day's exam FINDINGS: Portable frontal view of the chest. IMPRESSION: Support Lines: Stable. Lungs and pleura: Unchanged airspace and pleural opacities. No pneumothorax.Heart and mediastinum: Stable contours. Stable surgical changes.Additional findings: None. Signed: Joi Pineda MDReport Verified Date/Time: 09/29/2019 13:42:34 Reading Location: [facility] Radiology Reading Room [id number] 13:41:00 Test Item Value Reference Range Interpretation Comments FERRITIN (BEAKER) (test code = 480.68 ng/mL 5.00-275.00 H 361) Shoe Laster ID - HANSA CURIC [id number] 13:29:00 Test Item Value Reference Range Interpretation Comments URIC ACID (BEAKER) (test code = 2.7 mg/dL 2.6-7.2 773) Shoe Laster ID - HANSA [id number] 12:08:00 Test Item Value Reference Range Interpretation Comments D-DIMER QUANTITATIVE (BEAKER) 9.01 MG/L FEU <0.50 H (test code = 671) Intended Use: The D-Dimer Assay can be used to aid in the diagnosis of Deep Vein Thrombosis (DVT) and Pulmonary Embolism Disease (PED).In patients with low pre- test probability, various studies concerning STA Liatest D-dimer test have reported that with a cutoff value of 0.50 MG/L FEU, the Negative Predictive Value (NPV) regarding the exclusion of thrombosis is within 95-100% range. PT/[id number] 11:59:00 Test Item Value Reference Range Interpretation Comments PROTIME (BEAKER) (test code = 14.3 seconds 11.9-14.2 H 759) INR (BEAKER) (test code = 370) 1.1 <=5.9 PARTIAL THROMBOPLASTIN TIME 61.5 seconds 22.5-36.0 H (BEAKER) (test code = 760) Effective 10/21/2018: PT Reference Range ChangeNew: 11.9-14.2 Previous: 11.7- 14.7RECOMMENDED COUMADIN/WARFARIN INR THERAPY RANGESSTANDARD DOSE: 2.0-3.0 Includes: PROPHYLAXIS for venous thrombosis, systemic embolization; TREATMENT for venous thrombosis and/or pulmonary embolus.HIGH RISK: Target INR is2.5-3.5 for patients wiht mechanical heart valves.POCT-GLUCOSE [id number] 11:47:00 Test Item Value Reference Range Interpretation Comments POC-GLUCOSE METER 188 mg/dL 70-110 H : TESTED A T [facility] 6720 (BEAKER) (test code = [facility] [place], 1538) [id number]: Shoe Laster/Techni lavinia ID = [id number] for CO RTEZ, FIORELLA BASIC METABOLIC [id number] 09:27:00 Test Item Value Reference Range Interpretation Comments SODIUM (BEAKER) 140 meq/L 136-145 (test code = 381) POTASSIUM (BEAKER) 4.1 meq/L 3.5-5.1 (test code = 379) CHLORIDE (BEAKER) 116 meq/L 98-107 H (test code = 382) CO2 (BEAKER) (test 19 meq/L 22-29 L code = 355) BLOOD UREA NITROGEN 18 mg/dL 7-21 (BEAKER) (test code = 354) CREATININE (BEAKER) 0.78 mg/dL 0.57-1.25 (test code = 358) GLUCOSE RANDOM 211 mg/dL 70-105 H (BEAKER) (test code = 652) CALCIUM (BEAKER) 7.9 mg/dL 8.4-10.2 L (test code = 697) EGFR (BEAKER) (test 97 mL/min/1.73 ESTIMA COCO GFR IS code = 1092) sq m NOT ACCURATE CREATININE CLEARANCE IN PREDICTING GLOMERULAR FILTRATION RATE . ESTIMATED GFR I S NOT APPLICABLE FOR DIALYSIS PATIEN TS. Shoe Laster ID - HANSA [id number] 05:49:00 Test Item Value Reference Range Interpretation Comments PARTIAL THROMBOPLASTIN TIME 45.7 seconds 22.5-36.0 H (BEAKER) (test code = 760) 6 hours after starting heparin infusion and as indicated per sliding scale COMPREHENSIVE METABOLIC [id number] 05:29:00 Test Item Value Reference Range Interpretation Comments TOTAL PROTEIN 5.4 gm/dL 6.0-8.3 L (BEAKER) (test code = 770) ALBUMIN (BEAKER) 3.0 g/dL 3.5-5.0 L (test code = 1145) ALKALINE PHOSPHATASE 56 U/L 40-150 (BEAKER) (test code = 346) BILIRUBIN TOTAL 0.8 mg/dL 0.2-1.2 (BEAKER) (test code = 377) SODIUM (BEAKER) (test 141 meq/L 136-145 code = 381) POTASSIUM (BEAKER) 3.3 meq/L 3.5-5.1 L (test code = 379) CHLORIDE (BEAKER) 116 meq/L 98-107 H (test code = 382) CO2 (BEAKER) (test 20 meq/L 22-29 L code = 355) BLOOD UREA NITROGEN 18 mg/dL 7-21 (BEAKER) (test code = 354) CREATININE (BEAKER) 0.81 mg/dL 0.57-1.25 (test code = 358) GLUCOSE RANDOM 208 mg/dL 70-105 H (BEAKER) (test code = 652) CALCIUM (BEAKER) 7.9 mg/dL 8.4-10.2 L (test code = 697) AST (SGOT) (BEAKER) 23 U/L 5-34 (test code = 353) ALT (SGPT) (BEAKER) 51 U/L 6-55 (test code = 347) EGFR (BEAKER) (test 93 mL/min/1.73 ESTIMA COCO GFR IS code = 1092) sq m NOT ACCURATE CREATININE CLEARANCE IN PREDICTING GLOMERULAR FILTRATION RATE . ESTIMATED GFR I S NOT APPLICABLE FOR DIALYSIS PATIEN TS. Shoe Laster ID - BRI [id number] 05:28:00 Test Item Value Reference Range Interpretation Comments PHOSPHORUS (BEAKER) (test code = 4.0 mg/dL 2.3-4.7 604) Shoe Laster ID - BRI [id number] 05:28:00 Test Item Value Reference Range Interpretation Comments MAGNESIUM (BEAKER) (test code = 2.1 mg/dL 1.6-2.6 627) Shoe Laster ID - BRI MLACTATE DEHYDROGENASE (LDH)2019-09-29 05:28:00 Test Item Value Reference Range Interpretation Comments LACTATE DEHYDROGENASE (BEAKER) (test 293 U/L 125-220 H code = 635) Shoe Laster ID - BRI MCBC W/PLT COUNT & AUTO [id number] 05:08:00 Test Item Value Reference Range Interpretation Comments WHITE BLOOD CELL COUNT (BEAKER) 7.3 K/ L 3.5-10.5 (test code = 775) RED BLOOD CELL COUNT (BEAKER) 4.04 M/ L 4.63-6.08 L (test code = 761) HEMOGLOBIN (BEAKER) (test code = 12.2 GM/DL 13.7-17.5 L 410) HEMATOCRIT (BEAKER) (test code = 37.7 % 40.1-51.0 L 411) MEAN CORPUSCULAR VOLUME (BEAKER) 93.3 fL 79.0-92.2 H (test code = 753) MEAN CORPUSCULAR HEMOGLOBIN 30.2 pg 25.7-32.2 (BEAKER) (test code = 751) MEAN CORPUSCULAR HEMOGLOBIN CONC 32.4 GM/DL 32.3-36.5 (BEAKER) (test code = 752) RED CELL DISTRIBUTION WIDTH 15.9 % 11.6-14.4 H (BEAKER) (test code = 412) PLATELET COUNT (BEAKER) (test 192 K/CU MM 150-450 code = 756) MEAN PLATELET VOLUME (BEAKER) 10.4 fL 9.4-12.4 (test code = 754) NUCLEATED RED BLOOD CELLS 0 /100 WBC 0-0 (BEAKER) (test code = 413) NEUTROPHILS RELATIVE PERCENT 70 % (BEAKER) (test code = 429) LYMPHOCYTES RELATIVE PERCENT 17 % (BEAKER) (test code = 430) MONOCYTES RELATIVE PERCENT 8 % (BEAKER) (test code = 431) EOSINOPHILS RELATIVE PERCENT 3 % (BEAKER) (test code = 432) BASOPHILS RELATIVE PERCENT 1 % (BEAKER) (test code = 437) NEUTROPHILS ABSOLUTE COUNT 5.09 K/ L 1.78-5.38 (BEAKER) (test code = 670) LYMPHOCYTES ABSOLUTE COUNT 1.26 K/ L 1.32-3.57 L (BEAKER) (test code = 414) MONOCYTES ABSOLUTE COUNT (BEAKER) 0.59 K/ L 0.30-0.82 (test code = 415) EOSINOPHILS ABSOLUTE COUNT 0.18 K/ L 0.04-0.54 (BEAKER) (test code = 416) BASOPHILS ABSOLUTE COUNT (BEAKER) 0.06 K/ L 0.01-0.08 (test code = 417) IMMATURE GRANULOCYTES-RELATIVE 2 % 0-1 H PERCENT (BEAKER) (test code = 2801) CALCIUM, [id number] 05:07:00 Test Item Value Reference Range Interpretation Comments CALCIUM IONIZED (BEAKER) (test 1.13 mmol/L 1.12-1.27 code = 698) PH, BLOOD (BEAKER) (test code = 7.43 1810) BLOOD GAS, [id number] 05:06:00 Test Item Value Reference Range Interpretation Comments PH ARTERIAL (BEAKER) (test code = 7.46 7.35-7.45 H 383) PCO2 ARTERIAL (BEAKER) (test code 29 mmHg 35-45 L = 384) PO2 ARTERIAL (BEAKER) (test code 75 mmHg 80-90 L = 385) O2 SATURATION ARTERIAL (BEAKER) 95.8 % 96.0-97.0 L (test code = 386) HCO3 ARTERIAL (BEAKER) (test code 20 mmol/L 21-29 L = 388) BASE EXCESS ARTERIAL (BEAKER) -2.6 mmol/L -2.0-3.0 L (test code = 387) PATIENT TEMPERATURE (BEAKER) 37.0 C (test code = 1818) FIO2 (BEAKER) (test code = 1819) 35.0 % POCT-GLUCOSE [id number] 04:54:00 Test Item Value Reference Range Interpretation Comments POC-GLUCOSE METER 195 mg/dL 70-110 H : TESTED A T [facility] 6720 (BEAKER) (test code = [facility], 1538) [id number]: Shoe Laster/Techni lavinia ID = [id number] for NAYELY SCHAFFER POCT-GLUCOSE [id number] 00:04:00 Test Item Value Reference Range Interpretation Comments POC-GLUCOSE METER 179 mg/dL 70-110 H : TESTED A T [facility] 6720 (BEAKER) (test code = [facility], 1538) [address]: Shoe Laster/Techni lavinia ID = [id number] for DEBBY, OS MOSHEE POCT-GLUCOSE [id number] 18:12:00 Test Item Value Reference Range Interpretation Comments POC-GLUCOSE METER 163 mg/dL 70-110 H : TESTED A T [facility] 6720 (BEAKER) (test code = [facility], 1538) [address]: Shoe Laster/Techni lavinia ID = [id number] for VAN [place] BASIC METABOLIC [id number] 18:12:00 Test Item Value Reference Range Interpretation Comments SODIUM (BEAKER) 141 meq/L 136-145 (test code = 381) POTASSIUM (BEAKER) 3.7 meq/L 3.5-5.1 (test code = 379) CHLORIDE (BEAKER) 114 meq/L 98-107 H (test code = 382) CO2 (BEAKER) (test 19 meq/L 22-29 L code = 355) BLOOD UREA NITROGEN 18 mg/dL 7-21 (BEAKER) (test code = 354) CREATININE (BEAKER) 0.81 mg/dL 0.57-1.25 (test code = 358) GLUCOSE RANDOM 201 mg/dL 70-105 H (BEAKER) (test code = 652) CALCIUM (BEAKER) 7.8 mg/dL 8.4-10.2 L (test code = 697) EGFR (BEAKER) (test 93 mL/min/1.73 ESTIMA COCO GFR IS code = 1092) sq m NOT ACCURATE CREATININE CLEARANCE IN PREDICTING GLOMERULAR FILTRATION RATE . ESTIMATED GFR I S NOT APPLICABLE FOR DIALYSIS PATIEN TS. Shoe Laster ID - [id number] 18:06:00 Test Item Value Reference Range Interpretation Comments PROTIME (BEAKER) (test code = 14.9 seconds 11.9-14.2 H 759) INR (BEAKER) (test code = 370) 1.2 <=5.9 PARTIAL THROMBOPLASTIN TIME 74.6 seconds 22.5-36.0 H (BEAKER) (test code = 760) Effective 10/21/2018: PT Reference Range ChangeNew: 11.9-14.2 Previous: 11.7- 14.7RECOMMENDED COUMADIN/WARFARIN INR THERAPY RANGESSTANDARD DOSE: 2.0-3.0 Includes: PROPHYLAXIS for venous thrombosis, systemic embolization; TREATMENT for venous thrombosis and/or pulmonary embolus.HIGH RISK: Target INR is2.5-3.5 for patients wiht mechanical heart valves.POCT-GLUCOSE [id number] 11:57:00 Test Item Value Reference Range Interpretation Comments POC-GLUCOSE METER 206 mg/dL 70-110 H : TESTED A T [facility] 6720 (BEAKER) (test code = [place], 1538) [id number]: Shoe Laster/Techni lavinia ID = [id number] for JOI KELLY [id number] 11:40:00 Test Item Value Reference Range Interpretation Comments PROCALCITONIN (BEAKER) (test code = < ng/mL <0.05 3036) SEPSIS RISK (ng/mL)Low: 0.05-0.50Intermediate: 0.51-2.00High: >=[id number] 11:34:00 Test Item Value Reference Range Interpretation Comments FERRITIN (BEAKER) (test code = 501.97 ng/mL 5.00-275.00 H 361) Shoe Laster ID - NTPC-REACTIVE [id number] 11:11:00 Test Item Value Reference Range Interpretation Comments C-REACTIVE PROTEIN (BEAKER) (test 0.17 mg/dL 0.00-0.50 code = 676) Shoe Laster ID - [id number] 11:05:00 Test Item Value Reference Range Interpretation Comments D-DIMER QUANTITATIVE (BEAKER) 13.31 MG/L FEU <0.50 H (test code = 671) Intended Use: The D-Dimer Assay can be used to aid in the diagnosis of Deep Vein Thrombosis (DVT) and Pulmonary Embolism Disease (PED).In patients with low pre- test probability, various studies concerning STA Liatest D-dimer test have reported that with a cutoff value of 0.50 MG/L FEU, the Negative Predictive Value (NPV) regarding the exclusion of thrombosis is within 95-100% range. PT/[id number] 10:57:00 Test Item Value Reference Range Interpretation Comments PROTIME (BEAKER) (test code = 15.5 seconds 11.9-14.2 H 759) INR (BEAKER) (test code = 370) 1.3 <=5.9 PARTIAL THROMBOPLASTIN TIME 81.9 seconds 22.5-36.0 H (BEAKER) (test code = 760) Effective 10/21/2018: PT Reference Range ChangeNew: 11.9-14.2 Previous: 11.7- 14.7RECOMMENDED COUMADIN/WARFARIN INR THERAPY RANGESSTANDARD DOSE: 2.0-3.0 Includes: PROPHYLAXIS for venous thrombosis, systemic embolization; TREATMENT for venous thrombosis and/or pulmonary embolus.HIGH RISK: Target INR is2.5-3.5 for patients wiht mechanical heart valves.[id number] 05:14:00 Test Item Value Reference Range Interpretation Comments PHOSPHORUS (BEAKER) (test code = 3.9 mg/dL 2.3-4.7 604) Shoe Laster ID - MARIZA [id number] 05:14:00 Test Item Value Reference Range Interpretation Comments MAGNESIUM (BEAKER) (test code = 2.1 mg/dL 1.6-2.6 627) Shoe Laster ID - MARIZA LCOMPREHENSIVE METABOLIC [id number] 05:14:00 Test Item Value Reference Range Interpretation Comments TOTAL PROTEIN 5.6 gm/dL 6.0-8.3 L (BEAKER) (test code = 770) ALBUMIN (BEAKER) 3.0 g/dL 3.5-5.0 L (test code = 1145) ALKALINE PHOSPHATASE 58 U/L 40-150 (BEAKER) (test code = 346) BILIRUBIN TOTAL 0.9 mg/dL 0.2-1.2 (BEAKER) (test code = 377) SODIUM (BEAKER) (test 141 meq/L 136-145 code = 381) POTASSIUM (BEAKER) 3.8 meq/L 3.5-5.1 (test code = 379) CHLORIDE (BEAKER) 114 meq/L 98-107 H (test code = 382) CO2 (BEAKER) (test 21 meq/L 22-29 L code = 355) BLOOD UREA NITROGEN 19 mg/dL 7-21 (BEAKER) (test code = 354) CREATININE (BEAKER) 0.83 mg/dL 0.57-1.25 (test code = 358) GLUCOSE RANDOM 206 mg/dL 70-105 H (BEAKER) (test code = 652) CALCIUM (BEAKER) 8.0 mg/dL 8.4-10.2 L (test code = 697) AST (SGOT) (BEAKER) 36 U/L 5-34 H (test code = 353) ALT (SGPT) (BEAKER) 64 U/L 6-55 H (test code = 347) EGFR (BEAKER) (test 91 mL/min/1.73 ESTIMA COCO GFR IS code = 1092) sq m NOT ACCURATE CREATININE CLEARANCE IN PREDICTING GLOMERULAR FILTRATION RATE . ESTIMATED GFR I S NOT APPLICABLE FOR DIALYSIS PATIEN TS. Shoe Laster ID - PIBERNADINE [id number] 04:59:00 Test Item Value Reference Range Interpretation Comments PARTIAL THROMBOPLASTIN TIME 33.2 seconds 22.5-36.0 (BEAKER) (test code = 760) 6 hours after starting heparin infusion and as indicated per sliding scaleBLOOD GAS, [id number] 04:45:00 Test Item Value Reference Range Interpretation Comments PH ARTERIAL (BEAKER) (test code = 7.46 7.35-7.45 H 383) PCO2 ARTERIAL (BEAKER) (test code 31 mmHg 35-45 L = 384) PO2 ARTERIAL (BEAKER) (test code 81 mmHg 80-90 = 385) O2 SATURATION ARTERIAL (BEAKER) 96.5 % 96.0-97.0 (test code = 386) HCO3 ARTERIAL (BEAKER) (test code 21 mmol/L 21-29 = 388) BASE EXCESS ARTERIAL (BEAKER) -1.5 mmol/L -2.0-3.0 (test code = 387) PATIENT TEMPERATURE (BEAKER) 37.2 C (test code = 1818) FIO2 (BEAKER) (test code = 1819) 35.0 % CALCIUM, [id number] 04:44:00 Test Item Value Reference Range Interpretation Comments CALCIUM IONIZED (BEAKER) (test 1.13 mmol/L 1.12-1.27 code = 698) PH, BLOOD (BEAKER) (test code = 7.46 1810) CBC W/PLT COUNT & AUTO [id number] 04:37:00 Test Item Value Reference Range Interpretation Comments WHITE BLOOD CELL COUNT (BEAKER) 8.1 K/ L 3.5-10.5 (test code = 775) RED BLOOD CELL COUNT (BEAKER) 4.15 M/ L 4.63-6.08 L (test code = 761) HEMOGLOBIN (BEAKER) (test code = 12.7 GM/DL 13.7-17.5 L 410) HEMATOCRIT (BEAKER) (test code = 38.6 % 40.1-51.0 L 411) MEAN CORPUSCULAR VOLUME (BEAKER) 93.0 fL 79.0-92.2 H (test code = 753) MEAN CORPUSCULAR HEMOGLOBIN 30.6 pg 25.7-32.2 (BEAKER) (test code = 751) MEAN CORPUSCULAR HEMOGLOBIN CONC 32.9 GM/DL 32.3-36.5 (BEAKER) (test code = 752) RED CELL DISTRIBUTION WIDTH 15.5 % 11.6-14.4 H (BEAKER) (test code = 412) PLATELET COUNT (BEAKER) (test 238 K/CU MM 150-450 code = 756) MEAN PLATELET VOLUME (BEAKER) 10.4 fL 9.4-12.4 (test code = 754) NUCLEATED RED BLOOD CELLS 0 /100 WBC 0-0 (BEAKER) (test code = 413) NEUTROPHILS RELATIVE PERCENT 72 % (BEAKER) (test code = 429) LYMPHOCYTES RELATIVE PERCENT 16 % (BEAKER) (test code = 430) MONOCYTES RELATIVE PERCENT 8 % (BEAKER) (test code = 431) EOSINOPHILS RELATIVE PERCENT 2 % (BEAKER) (test code = 432) BASOPHILS RELATIVE PERCENT 1 % (BEAKER) (test code = 437) NEUTROPHILS ABSOLUTE COUNT 5.79 K/ L 1.78-5.38 H (BEAKER) (test code = 670) LYMPHOCYTES ABSOLUTE COUNT 1.32 K/ L 1.32-3.57 (BEAKER) (test code = 414) MONOCYTES ABSOLUTE COUNT (BEAKER) 0.63 K/ L 0.30-0.82 (test code = 415) EOSINOPHILS ABSOLUTE COUNT 0.15 K/ L 0.04-0.54 (BEAKER) (test code = 416) BASOPHILS ABSOLUTE COUNT (BEAKER) 0.06 K/ L 0.01-0.08 (test code = 417) IMMATURE GRANULOCYTES-RELATIVE 1 % 0-1 PERCENT (BEAKER) (test code = 2801) [id number] 23:14:00 Test Item Value Reference Range Interpretation Comments PROTIME (BEAKER) (test code = 14.9 seconds 11.9-14.2 H 759) INR (BEAKER) (test code = 370) 1.2 <=5.9 PARTIAL THROMBOPLASTIN TIME 35.3 seconds 22.5-36.0 (BEAKER) (test code = 760) Effective 10/21/2018: PT Reference Range ChangeNew: 11.9-14.2 Previous: 11.7- 14.7RECOMMENDED COUMADIN/WARFARIN INR THERAPY RANGESSTANDARD DOSE: 2.0-3.0 Includes: PROPHYLAXIS for venous thrombosis, systemic embolization; TREATMENT for venous thrombosis and/or pulmonary embolus.HIGH RISK: Target INR is2.5-3.5 for patients wiht mechanical heart valves.POCT-GLUCOSE [id number] 23:06:00 Test Item Value Reference Range Interpretation Comments POC-GLUCOSE METER 144 mg/dL 70-110 H : TESTED A T [facility] 6720 (BEAKER) (test code = [facility], 1538) [id number]: Shoe Laster/Techni lavinia ID = [id number] for EZ EBUIKE, CATIA POCT-GLUCOSE [id number] 20:48:00 Test Item Value Reference Range Interpretation Comments POC-GLUCOSE METER 138 mg/dL 70-110 H : TESTED A T [facility] 6720 (BEAKER) (test code = [facility], 1538) [id number]: Shoe Laster/Techni lavinia ID = [id number] for EZ EBUIKE, CATIA POCT-GLUCOSE [id number] 17:24:00 Test Item Value Reference Range Interpretation Comments POC-GLUCOSE METER 188 mg/dL 70-110 H : TESTED A T [facility] 6720 (BEAKER) (test code = [facility], 1538) [id number]: Shoe Laster/Techni lavinia ID = [id number] for XENIA CORDERO [id number] 17:01:00 Test Item Value Reference Range Interpretation Comments PROTIME (BEAKER) (test code = 14.9 seconds 11.9-14.2 H 759) INR (BEAKER) (test code = 370) 1.2 <=5.9 PARTIAL THROMBOPLASTIN TIME 29.8 seconds 22.5-36.0 (BEAKER) (test code = 760) Effective 10/21/2018: PT Reference Range ChangeNew: 11.9-14.2 Previous: 11.7- 14.7RECOMMENDED COUMADIN/WARFARIN INR THERAPY RANGESSTANDARD DOSE: 2.0-3.0 Includes: PROPHYLAXIS for venous thrombosis, systemic embolization; TREATMENT for venous thrombosis and/or pulmonary embolus.HIGH RISK: Target INR is2.5-3.5 for patients wiht mechanical heart valves.[id number] 16:56:00 Test Item Value Reference Range Interpretation Comments POTASSIUM (BEAKER) (test code = 4.1 meq/L 3.5-5.1 379) Shoe Laster ID - [id number] 13:12:00 Test Item Value Reference Range Interpretation Comments POTASSIUM (BEAKER) (test code = 3.4 meq/L 3.5-5.1 L 379) Shoe Laster ID - ERIN [id number] 13:12:00 Test Item Value Reference Range Interpretation Comments MAGNESIUM (BEAKER) (test code = 2.2 mg/dL 1.6-2.6 627) Shoe Laster ID - ERIN FPOCT-GLUCOSE [id number] 12:34:00 Test Item Value Reference Range Interpretation Comments POC-GLUCOSE METER 249 mg/dL 70-110 H : TESTED A T [facility] 6720 (BEAKER) (test code [facility], = 1538) [address]: Shoe Laster/Techni lavinia ID = [id number] for Kasia Hendricks CALCIUM, [id number] 05:00:00 Test Item Value Reference Range Interpretation Comments CALCIUM IONIZED (BEAKER) (test 1.08 mmol/L 1.12-1.27 L code = 698) PH, BLOOD (BEAKER) (test code = 7.50 1810) CBC W/PLT COUNT & AUTO [id number] 04:44:00 Test Item Value Reference Range Interpretation Comments WHITE BLOOD CELL COUNT (BEAKER) 6.6 K/ L 3.5-10.5 (test code = 775) RED BLOOD CELL COUNT (BEAKER) 4.24 M/ L 4.63-6.08 L (test code = 761) HEMOGLOBIN (BEAKER) (test code = 12.7 GM/DL 13.7-17.5 L 410) HEMATOCRIT (BEAKER) (test code = 39.3 % 40.1-51.0 L 411) MEAN CORPUSCULAR VOLUME (BEAKER) 92.7 fL 79.0-92.2 H (test code = 753) MEAN CORPUSCULAR HEMOGLOBIN 30.0 pg 25.7-32.2 (BEAKER) (test code = 751) MEAN CORPUSCULAR HEMOGLOBIN CONC 32.3 GM/DL 32.3-36.5 (BEAKER) (test code = 752) RED CELL DISTRIBUTION WIDTH 15.2 % 11.6-14.4 H (BEAKER) (test code = 412) PLATELET COUNT (BEAKER) (test 226 K/CU MM 150-450 code = 756) MEAN PLATELET VOLUME (BEAKER) 10.2 fL 9.4-12.4 (test code = 754) NUCLEATED RED BLOOD CELLS 1 /100 WBC 0-0 H (BEAKER) (test code = 413) NEUTROPHILS RELATIVE PERCENT 66 % (BEAKER) (test code = 429) LYMPHOCYTES RELATIVE PERCENT 21 % (BEAKER) (test code = 430) MONOCYTES RELATIVE PERCENT 9 % (BEAKER) (test code = 431) EOSINOPHILS RELATIVE PERCENT 2 % (BEAKER) (test code = 432) BASOPHILS RELATIVE PERCENT 1 % (BEAKER) (test code = 437) NEUTROPHILS ABSOLUTE COUNT 4.37 K/ L 1.78-5.38 (BEAKER) (test code = 670) LYMPHOCYTES ABSOLUTE COUNT 1.40 K/ L 1.32-3.57 (BEAKER) (test code = 414) MONOCYTES ABSOLUTE COUNT (BEAKER) 0.56 K/ L 0.30-0.82 (test code = 415) EOSINOPHILS ABSOLUTE COUNT 0.11 K/ L 0.04-0.54 (BEAKER) (test code = 416) BASOPHILS ABSOLUTE COUNT (BEAKER) 0.05 K/ L 0.01-0.08 (test code = 417) IMMATURE GRANULOCYTES-RELATIVE 2 % 0-1 H PERCENT (BEAKER) (test code = 2801) [id number] 04:40:00 Test Item Value Reference Range Interpretation Comments PHOSPHORUS (BEAKER) (test code = 3.8 mg/dL 2.3-4.7 604) Shoe Laster ID - PIAYA [id number] 04:40:00 Test Item Value Reference Range Interpretation Comments MAGNESIUM (BEAKER) (test code = 1.9 mg/dL 1.6-2.6 627) Shoe Laster ID - PIAYA LCOMPREHENSIVE METABOLIC [id number] 04:40:00 Test Item Value Reference Range Interpretation Comments TOTAL PROTEIN 5.5 gm/dL 6.0-8.3 L (BEAKER) (test code = 770) ALBUMIN (BEAKER) 3.0 g/dL 3.5-5.0 L (test code = 1145) ALKALINE PHOSPHATASE 61 U/L 40-150 (BEAKER) (test code = 346) BILIRUBIN TOTAL 1.0 mg/dL 0.2-1.2 (BEAKER) (test code = 377) SODIUM (BEAKER) (test 141 meq/L 136-145 code = 381) POTASSIUM (BEAKER) 3.4 meq/L 3.5-5.1 L (test code = 379) CHLORIDE (BEAKER) 109 meq/L 98-107 H (test code = 382) CO2 (BEAKER) (test 25 meq/L 22-29 code = 355) BLOOD UREA NITROGEN 19 mg/dL 7-21 (BEAKER) (test code = 354) CREATININE (BEAKER) 0.80 mg/dL 0.57-1.25 (test code = 358) GLUCOSE RANDOM 243 mg/dL 70-105 H (BEAKER) (test code = 652) CALCIUM (BEAKER) 8.1 mg/dL 8.4-10.2 L (test code = 697) AST (SGOT) (BEAKER) 36 U/L 5-34 H (test code = 353) ALT (SGPT) (BEAKER) 71 U/L 6-55 H (test code = 347) EGFR (BEAKER) (test 94 mL/min/1.73 ESTIMA COCO GFR IS code = 1092) sq m NOT ACCURATE CREATININE CLEARANCE IN PREDICTING GLOMERULAR FILTRATION RATE . ESTIMATED GFR I S NOT APPLICABLE FOR DIALYSIS PATIEN TS. Shoe Laster ID Osmani DAWKINS LLACTATE DEHYDROGENASE (LDH)2019-09-27 04:40:00 Test Item Value Reference Range Interpretation Comments LACTATE DEHYDROGENASE (BEAKER) (test 341 U/L 125-220 H code = 635) Shoe Laster ID - MARIZA [id number] 04:30:00 Test Item Value Reference Range Interpretation Comments PARTIAL THROMBOPLASTIN TIME 25.8 seconds 22.5-36.0 (BEAKER) (test code = 760) 6 hours after starting heparin infusion and as indicated per sliding scaleBLOOD GAS, [id number] 04:13:00 Test Item Value Reference Range Interpretation Comments PH ARTERIAL (BEAKER) (test code = 7.49 7.35-7.45 H 383) PCO2 ARTERIAL (BEAKER) (test code 36 mmHg 35-45 = 384) PO2 ARTERIAL (BEAKER) (test code = 79 mmHg 80-90 L 385) O2 SATURATION ARTERIAL (BEAKER) 96.0 % 96.0-97.0 (test code = 386) HCO3 ARTERIAL (BEAKER) (test code 26 mmol/L 21-29 = 388) BASE EXCESS ARTERIAL (BEAKER) 3.2 mmol/L -2.0-3.0 H (test code = 387) PATIENT TEMPERATURE (BEAKER) (test 38.1 C code = 1818) FIO2 (BEAKER) (test code = 1819) 40.0 % POCT-GLUCOSE [id number] 23:23:00 Test Item Value Reference Range Interpretation Comments POC-GLUCOSE METER 154 mg/dL 70-110 H : TESTED A T [facility] 6720 (BEAKER) (test code = [facility], 1538) [address]: Shoe Laster/Techni lavinia ID = [id number] for Ram rrKim maki (Contra ct) POCT-GLUCOSE [id number] 17:49:00 Test Item Value Reference Range Interpretation Comments POC-GLUCOSE METER 173 mg/dL 70-110 H : TESTED A T [facility] 6720 (BEAKER) (test code [facility], = 1538) [address]: Shoe Laster/Techni lavinia ID = [id number] for GORDY VELA MA (Cont ract) [id number] 13:56:00 Test Item Value Reference Range Interpretation Comments POTASSIUM (BEAKER) (test code = 4.0 meq/L 3.5-5.1 379) Shoe Laster ID - TIMOTHY WPOCT-GLUCOSE [id number] 13:28:00 Test Item Value Reference Range Interpretation Comments POC-GLUCOSE METER 245 mg/dL 70-110 H : TESTED A T [facility] 6720 (BEAKER) (test code = [facility], 1538) 125[address]: Shoe Laster/Techni lavinia ID = [id number] for SRINIVAS EASTON [id number] 11:17:00 Test Item Value Reference Range Interpretation Comments FERRITIN (BEAKER) (test code = 664.51 ng/mL 5.00-275.00 H 361) Shoe Laster ID - TIMOTHY [id number] 11:06:00 Test Item Value Reference Range Interpretation Comments PROCALCITONIN (BEAKER) (test code 0.06 ng/mL <0.05 H = 3036) SEPSIS RISK (ng/mL)Low: 0.05-0.50Intermediate: 0.51-2.00High: >=2.01C-REACTIVE [id number] 10:52:00 Test Item Value Reference Range Interpretation Comments C-REACTIVE PROTEIN (BEAKER) (test 0.30 mg/dL 0.00-0.50 code = 676) Shoe Laster GLORIA AGUIRRE [id number] 10:52:00 Test Item Value Reference Range Interpretation Comments D-DIMER QUANTITATIVE (BEAKER) 2.52 MG/L FEU <0.50 H (test code = 671) Intended Use: The D-Dimer Assay can be used to aid in the diagnosis of Deep Vein Thrombosis (DVT) and Pulmonary Embolism Disease (PED).In patients with low pre- test probability, various studies concerning STA Liatest D-dimer test have reported that with a cutoff value of 0.50 MG/L FEU, the Negative Predictive Value (NPV) regarding the exclusion of thrombosis is within 95-100% range. PT/[id number] 10:48:00 Test Item Value Reference Range Interpretation Comments PROTIME (BEAKER) (test code = 14.6 seconds 11.9-14.2 H 759) INR (BEAKER) (test code = 370) 1.2 <=5.9 PARTIAL THROMBOPLASTIN TIME 61.7 seconds 22.5-36.0 H (BEAKER) (test code = 760) Effective 10/21/2018: PT Reference Range ChangeNew: 11.9-14.2 Previous: 11.7- 14.7RECOMMENDED COUMADIN/WARFARIN INR THERAPY RANGESSTANDARD DOSE: 2.0-3.0 Includes: PROPHYLAXIS for venous thrombosis, systemic embolization; TREATMENT for venous thrombosis and/or pulmonary embolus.HIGH RISK: Target INR is2.5-3.5 for patients wiht mechanical heart valves.RAD, CHEST, 1 VIEW, NON [id number] 10:04:00Reason for exam:->pneumoniaShould this be performed at the bedside?->YesFINAL REPORT TECHNIQUE: Frontal view of the chest. INDICATION: 74-year-old man with pneumonia. COMPARISON: Chest radiograph 09/24/2019. FINDINGS:Suboptimal evaluation as the lowerthorax was not included on the images. LINES/TUBES: Unchanged. LUNGS: No significant change in diffuse bilateral airspace opacities. PLEURA: No significant change in suspected small bilateral pleural effusions, however the lower thorax is not included on the images. No pneumothorax. HEART AND MEDIASTINUM: The cardiomediastinal silhouette is not significantly changed. Atherosclerotic calcifications inthe thoracic aorta. SOFT TISSUES AND BONES: Unremarkable. IMPRESSION:Suboptimal evaluation as the lower thorax was not included on the images. No significant change since 09/24/2019. Signed: Christiano Mejia Verified Date/Time: 09/26/2019 10:04:20 Reading Location: [facility] C013Y CT Body ReadingRoom SPUTUM CULTURE + GRAM [id number] 08:29:00 Test Item Value Reference Range Interpretation Comments CULTURE (BEAKER) 3+ Normal respiratory (test code = 1095) alyse present GRAM STAIN RESULT 4+ WBCs (BEAKER) (test code = 1123) GRAM STAIN RESULT 0-5 epithelial cells (BEAKER) (test code = 82014) GRAM STAIN RESULT 4+ gram positive cocci (BEAKER) (test code = 99490) POCT-GLUCOSE [id number] 05:33:00 Test Item Value Reference Range Interpretation Comments POC-GLUCOSE METER 221 mg/dL 70-110 H : TESTED A T [facility] 6720 (BEAKER) ([facility], 1538) [address]: Shoe Laster/Techni lavinia ID = [id number] for ELMER BARTON [id number] 04:25:00 Test Item Value Reference Range Interpretation Comments PHOSPHORUS (BEAKER) (test code = 3.5 mg/dL 2.3-4.7 604) Shoe Laster ID - NADIA [id number] 04:25:00 Test Item Value Reference Range Interpretation Comments MAGNESIUM (BEAKER) (test code = 2.0 mg/dL 1.6-2.6 627) Shoe Laster ID - NADIA WCOMPREHENSIVE METABOLIC [id number] 04:25:00 Test Item Value Reference Range Interpretation Comments TOTAL PROTEIN 5.4 gm/dL 6.0-8.3 L (BEAKER) (test code = 770) ALBUMIN (BEAKER) 2.9 g/dL 3.5-5.0 L (test code = 1145) ALKALINE PHOSPHATASE 57 U/L 40-150 (BEAKER) (test code = 346) BILIRUBIN TOTAL 0.9 mg/dL 0.2-1.2 (BEAKER) (test code = 377) SODIUM (BEAKER) (test 142 meq/L 136-145 code = 381) POTASSIUM (BEAKER) 3.8 meq/L 3.5-5.1 (test code = 379) CHLORIDE (BEAKER) 109 meq/L 98-107 H (test code = 382) CO2 (BEAKER) (test 27 meq/L 22-29 code = 355) BLOOD UREA NITROGEN 18 mg/dL 7-21 (BEAKER) (test code = 354) CREATININE (BEAKER) 0.80 mg/dL 0.57-1.25 (test code = 358) GLUCOSE RANDOM 241 mg/dL 70-105 H (BEAKER) (test code = 652) CALCIUM (BEAKER) 8.0 mg/dL 8.4-10.2 L (test code = 697) AST (SGOT) (BEAKER) 35 U/L 5-34 H (test code = 353) ALT (SGPT) (BEAKER) 75 U/L 6-55 H (test code = 347) EGFR (BEAKER) (test 94 mL/min/1.73 ESTIMA COCO GFR IS code = 1092) sq m NOT ACCURATE CREATININE CLEARANCE IN PREDICTING GLOMERULAR FILTRATION RATE . ESTIMATED GFR I S NOT APPLICABLE FOR DIALYSIS PATIEN TS. Shoe Laster ID Osmani ZUNIGA WCBC W/PLT COUNT & AUTO [id number] 04:16:00 Test Item Value Reference Range Interpretation Comments WHITE BLOOD CELL COUNT (BEAKER) 7.0 K/ L 3.5-10.5 (test code = 775) RED BLOOD CELL COUNT (BEAKER) 4.14 M/ L 4.63-6.08 L (test code = 761) HEMOGLOBIN (BEAKER) (test code = 12.4 GM/DL 13.7-17.5 L 410) HEMATOCRIT (BEAKER) (test code = 38.4 % 40.1-51.0 L 411) MEAN CORPUSCULAR VOLUME (BEAKER) 92.8 fL 79.0-92.2 H (test code = 753) MEAN CORPUSCULAR HEMOGLOBIN 30.0 pg 25.7-32.2 (BEAKER) (test code = 751) MEAN CORPUSCULAR HEMOGLOBIN CONC 32.3 GM/DL 32.3-36.5 (BEAKER) (test code = 752) RED CELL DISTRIBUTION WIDTH 15.2 % 11.6-14.4 H (BEAKER) (test code = 412) PLATELET COUNT (BEAKER) (test 227 K/CU MM 150-450 code = 756) MEAN PLATELET VOLUME (BEAKER) 9.9 fL 9.4-12.4 (test code = 754) NUCLEATED RED BLOOD CELLS 1 /100 WBC 0-0 H (BEAKER) (test code = 413) NEUTROPHILS RELATIVE PERCENT 67 % (BEAKER) (test code = 429) LYMPHOCYTES RELATIVE PERCENT 18 % (BEAKER) (test code = 430) MONOCYTES RELATIVE PERCENT 10 % (BEAKER) (test code = 431) EOSINOPHILS RELATIVE PERCENT 2 % (BEAKER) (test code = 432) BASOPHILS RELATIVE PERCENT 1 % (BEAKER) (test code = 437) NEUTROPHILS ABSOLUTE COUNT 4.69 K/ L 1.78-5.38 (BEAKER) (test code = 670) LYMPHOCYTES ABSOLUTE COUNT 1.28 K/ L 1.32-3.57 L (BEAKER) (test code = 414) MONOCYTES ABSOLUTE COUNT (BEAKER) 0.69 K/ L 0.30-0.82 (test code = 415) EOSINOPHILS ABSOLUTE COUNT 0.11 K/ L 0.04-0.54 (BEAKER) (test code = 416) BASOPHILS ABSOLUTE COUNT (BEAKER) 0.05 K/ L 0.01-0.08 (test code = 417) IMMATURE GRANULOCYTES-RELATIVE 2 % 0-1 H PERCENT (BEAKER) (test code = 2801) [id number] 04:11:00 Test Item Value Reference Range Interpretation Comments PARTIAL THROMBOPLASTIN TIME 81.1 seconds 22.5-36.0 H (BEAKER) (test code = 760) 6 hours after starting heparin infusion and as indicated per sliding scale CALCIUM, [id number] 04:06:00 Test Item Value Reference Range Interpretation Comments CALCIUM IONIZED (BEAKER) (test 1.06 mmol/L 1.12-1.27 L code = 698) PH, BLOOD (BEAKER) (test code = 7.51 1810) BLOOD GAS, [id number] 04:03:00 Test Item Value Reference Range Interpretation Comments PH ARTERIAL (BEAKER) (test code = 7.48 7.35-7.45 H 383) PCO2 ARTERIAL (BEAKER) (test code 38 mmHg 35-45 = 384) PO2 ARTERIAL (BEAKER) (test code = 174 mmHg 80-90 H 385) O2 SATURATION ARTERIAL (BEAKER) 99.3 % 96.0-97.0 H (test code = 386) HCO3 ARTERIAL (BEAKER) (test code 28 mmol/L 21-29 = 388) BASE EXCESS ARTERIAL (BEAKER) 4.2 mmol/L -2.0-3.0 H (test code = 387) PATIENT TEMPERATURE (BEAKER) (test 37.3 C code = 1818) FIO2 (BEAKER) (test code = 1819) 70.0 % POCT-GLUCOSE [id number] 00:53:00 Test Item Value Reference Range Interpretation Comments POC-GLUCOSE METER 201 mg/dL 70-110 H : TESTED A T [facility] 6720 (BEAKER) (test code [facility], = 1538) 311[address]: Shoe Laster/Techni lavinia ID = [id number] for MARLO [facility] VANCOMYCIN LEVEL, [id number] 22:48:00 Test Item Value Reference Range Interpretation Comments VANCOMYCIN TROUGH (BEAKER) (test 3.6 ug/mL 10.0-20.0 L code = 522) Shoe Laster ID - CHINOBERNADINE [id number] 22:44:00 Test Item Value Reference Range Interpretation Comments POTASSIUM (BEAKER) (test code = 3.9 meq/L 3.5-5.1 379) Shoe Laster ID - MARIZA LBLOOD GAS, [id number] 22:15:00 Test Item Value Reference Range Interpretation Comments PH ARTERIAL (BEAKER) (test code = 7.51 7.35-7.45 H 383) PCO2 ARTERIAL (BEAKER) (test code 35 mmHg 35-45 = 384) PO2 ARTERIAL (BEAKER) (test code = 130 mmHg 80-90 H 385) O2 SATURATION ARTERIAL (BEAKER) 98.9 % 96.0-97.0 H (test code = 386) HCO3 ARTERIAL (BEAKER) (test code 28 mmol/L 21-29 = 388) BASE EXCESS ARTERIAL (BEAKER) 4.5 mmol/L -2.0-3.0 H (test code = 387) PATIENT TEMPERATURE (BEAKER) (test 36.9 C code = 1818) FIO2 (BEAKER) (test code = 1819) 70.0 % POCT-GLUCOSE [id number] 17:26:00 Test Item Value Reference Range Interpretation Comments POC-GLUCOSE METER 227 mg/dL 70-110 H : TESTED A T [facility] 6720 (BEAKER) (test code = [facility] [place], 1538) [address]: Shoe Laster/Techni lavinia ID = [id number] for Marcel nowak Darian (Agency) [id number] 16:08:00 Test Item Value Reference Range Interpretation Comments POTASSIUM (BEAKER) (test code = 3.7 meq/L 3.5-5.1 379) Shoe Laster GLORIA AGUIRRE WBLOOD GAS, [id number] 16:00:00 Test Item Value Reference Range Interpretation Comments PH ARTERIAL (BEAKER) (test code = 7.49 7.35-7.45 H 383) PCO2 ARTERIAL (BEAKER) (test code 37 mmHg 35-45 = 384) PO2 ARTERIAL (BEAKER) (test code = 84 mmHg 80-90 385) O2 SATURATION ARTERIAL (BEAKER) 96.8 % 96.0-97.0 (test code = 386) HCO3 ARTERIAL (BEAKER) (test code 27 mmol/L 21-29 = 388) BASE EXCESS ARTERIAL (BEAKER) 3.8 mmol/L -2.0-3.0 H (test code = 387) PATIENT TEMPERATURE (BEAKER) (test 37.5 C code = 1818) FIO2 (BEAKER) (test code = 1819) 70.0 % [id number] 14:32:00 Test Item Value Reference Range Interpretation Comments FERRITIN (BEAKER) (test code = 775.54 ng/mL 5.00-275.00 H 361) Shoe Laster GLORIA AGUIRRE [id number] 12:00:00 Test Item Value Reference Range Interpretation Comments D-DIMER QUANTITATIVE (BEAKER) 2.57 MG/L FEU <0.50 H (test code = 671) Intended Use: The D-Dimer Assay can be used to aid in the diagnosis of Deep Vein Thrombosis (DVT) and Pulmonary Embolism Disease (PED).In patients with low pre- test probability, various studies concerning STA Liatest D-dimer test have reported that with a cutoff value of 0.50 MG/L FEU, the Negative Predictive Value (NPV) regarding the exclusion of thrombosis is within 95-100% range. LACTATE DEHYDROGENASE (LDH)2019-09-25 11:29:00 Test Item Value Reference Range Interpretation Comments LACTATE DEHYDROGENASE (BEAKER) (test 376 U/L 125-220 H code = 635) Shoe Laster ID Osmani SALDAÑATIMOTHY WURIC [id number] 11:29:00 Test Item Value Reference Range Interpretation Comments URIC ACID (BEAKER) (test code = 3.3 mg/dL 2.6-7.2 773) Shoe Laster ID Osmani SALDAÑATIMOTHY WPOCT-GLUCOSE [id number] 11:26:00 Test Item Value Reference Range Interpretation Comments POC-GLUCOSE METER 232 mg/dL 70-110 H : TESTED A T [facility] 6720 (BEAKER) (test code = [facility] [place], 1538) [address]: Shoe Laster/Techni lavinia ID = [id number] for AG MARCYO WILD [id number] 10:17:00 Test Item Value Reference Range Interpretation Comments POTASSIUM (BEAKER) (test code = 3.6 meq/L 3.5-5.1 379) Shoe Laster ID Osmani AGUIRRE [id number] 10:17:00 Test Item Value Reference Range Interpretation Comments MAGNESIUM (BEAKER) (test code = 2.0 mg/dL 1.6-2.6 627) Shoe Laster ID Osmani AGUIRRE WBLOOD GAS, [id number] 10:05:00 Test Item Value Reference Range Interpretation Comments PH ARTERIAL (BEAKER) (test code = 7.47 7.35-7.45 H 383) PCO2 ARTERIAL (BEAKER) (test code 39 mmHg 35-45 = 384) PO2 ARTERIAL (BEAKER) (test code = 83 mmHg 80-90 385) O2 SATURATION ARTERIAL (BEAKER) 96.5 % 96.0-97.0 (test code = 386) HCO3 ARTERIAL (BEAKER) (test code 27 mmol/L 21-29 = 388) BASE EXCESS ARTERIAL (BEAKER) 3.7 mmol/L -2.0-3.0 H (test code = 387) PATIENT TEMPERATURE (BEAKER) (test 37.5 C code = 1818) FIO2 (BEAKER) (test code = 1819) 70.0 % CALCIUM, [id number] 10:05:00 Test Item Value Reference Range Interpretation Comments CALCIUM IONIZED (BEAKER) (test 1.12 mmol/L 1.12-1.27 code = 698) PH, BLOOD (BEAKER) (test code = 7.47 1810) POCT-GLUCOSE [id number] 06:02:00 Test Item Value Reference Range Interpretation Comments POC-GLUCOSE METER 230 mg/dL 70-110 H : TESTED A T [facility] 6720 (BEAKER) (test code = [facility] [place], 1538) [address]: Shoe Laster/Techni lavinia ID = [id number] for REMI MONTERROSO BLOOD GAS, [id number] 04:51:00 Test Item Value Reference Range Interpretation Comments PH ARTERIAL (BEAKER) (test code = 7.48 7.35-7.45 H 383) PCO2 ARTERIAL (BEAKER) (test code 38 mmHg 35-45 = 384) PO2 ARTERIAL (BEAKER) (test code = 67 mmHg 80-90 L 385) O2 SATURATION ARTERIAL (BEAKER) 94.6 % 96.0-97.0 L (test code = 386) HCO3 ARTERIAL (BEAKER) (test code 28 mmol/L 21-29 = 388) BASE EXCESS ARTERIAL (BEAKER) 3.8 mmol/L -2.0-3.0 H (test code = 387) PATIENT TEMPERATURE (BEAKER) (test 36.8 C code = 1818) FIO2 (BEAKER) (test code = 1819) 70.0 % CALCIUM, [id number] 04:51:00 Test Item Value Reference Range Interpretation Comments CALCIUM IONIZED (BEAKER) (test 1.05 mmol/L 1.12-1.27 L code = 698) PH, BLOOD (BEAKER) (test code = 7.47 1810) [id number] 04:46:00 Test Item Value Reference Range Interpretation Comments PARTIAL THROMBOPLASTIN TIME 64.9 seconds 22.5-36.0 H (BEAKER) (test code = 760) 6 hours after starting heparin infusion and as indicated per sliding scale [id number] 04:40:00 Test Item Value Reference Range Interpretation Comments PHOSPHORUS (BEAKER) (test code = 3.8 mg/dL 2.3-4.7 604) Shoe Laster ID - MARIZA [id number] 04:40:00 Test Item Value Reference Range Interpretation Comments MAGNESIUM (BEAKER) (test code = 2.0 mg/dL 1.6-2.6 627) Shoe Laster ID - MARIZA LCOMPREHENSIVE METABOLIC [id number] 04:40:00 Test Item Value Reference Range Interpretation Comments TOTAL PROTEIN 5.4 gm/dL 6.0-8.3 L (BEAKER) (test code = 770) ALBUMIN (BEAKER) 2.9 g/dL 3.5-5.0 L (test code = 1145) ALKALINE PHOSPHATASE 59 U/L 40-150 (BEAKER) (test code = 346) BILIRUBIN TOTAL 0.9 mg/dL 0.2-1.2 (BEAKER) (test code = 377) SODIUM (BEAKER) (test 142 meq/L 136-145 code = 381) POTASSIUM (BEAKER) 3.6 meq/L 3.5-5.1 (test code = 379) CHLORIDE (BEAKER) 108 meq/L 98-107 H (test code = 382) CO2 (BEAKER) (test 28 meq/L 22-29 code = 355) BLOOD UREA NITROGEN 22 mg/dL 7-21 H (BEAKER) (test code = 354) CREATININE (BEAKER) 0.74 mg/dL 0.57-1.25 (test code = 358) GLUCOSE RANDOM 316 mg/dL 70-105 H (BEAKER) (test code = 652) CALCIUM (BEAKER) 8.0 mg/dL 8.4-10.2 L (test code = 697) AST (SGOT) (BEAKER) 36 U/L 5-34 H (test code = 353) ALT (SGPT) (BEAKER) 84 U/L 6-55 H (test code = 347) EGFR (BEAKER) (test 103 ESTIMATE D GFR IS code = 1092) mL/min/1.73 sq NOT ACCURA TE m CREATININE CLEARANCE IN PREDICTING GLOMERULAR FILTRATION RATE . ESTIMATED GFR I S NOT APPLICABLE FOR DIALYSIS PATIEN TS. Shoe Laster ID - PIAYA LCBC W/PLT COUNT & AUTO [id number] 04:22:00 Test Item Value Reference Range Interpretation Comments WHITE BLOOD CELL COUNT (BEAKER) 7.2 K/ L 3.5-10.5 (test code = 775) RED BLOOD CELL COUNT (BEAKER) 4.25 M/ L 4.63-6.08 L (test code = 761) HEMOGLOBIN (BEAKER) (test code = 12.4 GM/DL 13.7-17.5 L 410) HEMATOCRIT (BEAKER) (test code = 38.4 % 40.1-51.0 L 411) MEAN CORPUSCULAR VOLUME (BEAKER) 90.4 fL 79.0-92.2 (test code = 753) MEAN CORPUSCULAR HEMOGLOBIN 29.2 pg 25.7-32.2 (BEAKER) (test code = 751) MEAN CORPUSCULAR HEMOGLOBIN CONC 32.3 GM/DL 32.3-36.5 (BEAKER) (test code = 752) RED CELL DISTRIBUTION WIDTH 14.7 % 11.6-14.4 H (BEAKER) (test code = 412) PLATELET COUNT (BEAKER) (test 247 K/CU MM 150-450 code = 756) MEAN PLATELET VOLUME (BEAKER) 9.8 fL 9.4-12.4 (test code = 754) NUCLEATED RED BLOOD CELLS 0 /100 WBC 0-0 (BEAKER) (test code = 413) NEUTROPHILS RELATIVE PERCENT 68 % (BEAKER) (test code = 429) LYMPHOCYTES RELATIVE PERCENT 17 % (BEAKER) (test code = 430) MONOCYTES RELATIVE PERCENT 11 % (BEAKER) (test code = 431) EOSINOPHILS RELATIVE PERCENT 1 % (BEAKER) (test code = 432) BASOPHILS RELATIVE PERCENT 1 % (BEAKER) (test code = 437) NEUTROPHILS ABSOLUTE COUNT 4.92 K/ L 1.78-5.38 (BEAKER) (test code = 670) LYMPHOCYTES ABSOLUTE COUNT 1.20 K/ L 1.32-3.57 L (BEAKER) (test code = 414) MONOCYTES ABSOLUTE COUNT (BEAKER) 0.76 K/ L 0.30-0.82 (test code = 415) EOSINOPHILS ABSOLUTE COUNT 0.08 K/ L 0.04-0.54 (BEAKER) (test code = 416) BASOPHILS ABSOLUTE COUNT (BEAKER) 0.05 K/ L 0.01-0.08 (test code = 417) IMMATURE GRANULOCYTES-RELATIVE 3 % 0-1 H PERCENT (BEAKER) (test code = 2801) BLOOD GAS, [id number] 23:59:00 Test Item Value Reference Range Interpretation Comments PH ARTERIAL (BEAKER) (test code = 7.49 7.35-7.45 H 383) PCO2 ARTERIAL (BEAKER) (test code 36 mmHg 35-45 = 384) PO2 ARTERIAL (BEAKER) (test code = 66 mmHg 80-90 L 385) O2 SATURATION ARTERIAL (BEAKER) 94.7 % 96.0-97.0 L (test code = 386) HCO3 ARTERIAL (BEAKER) (test code 27 mmol/L 21-29 = 388) BASE EXCESS ARTERIAL (BEAKER) 3.2 mmol/L -2.0-3.0 H (test code = 387) PATIENT TEMPERATURE (BEAKER) (test 36.8 C code = 1818) FIO2 (BEAKER) (test code = 1819) 70.0 % POCT-GLUCOSE [id number] 23:32:00 Test Item Value Reference Range Interpretation Comments POC-GLUCOSE METER 219 mg/dL 70-110 H : TESTED A T [facility] 6720 (BEAKER) (test code = [facility] [employer] [facility], 1538) [id number]: Shoe Laster/Techni lavinia ID = [id number] for ANN MARIE [place] POCT-GLUCOSE [id number] 18:30:00 Test Item Value Reference Range Interpretation Comments POC-GLUCOSE METER 97 mg/dL 70-110 : TESTED A T [facility] 6720 (BEAKER) (test code = [facility] Smart[employer] [facility], 1538) [id number]: Shoe Laster/Techni lavinia ID = [id number] for MELISSA NUÑEZ BLOOD GAS, [id number] 16:25:00 Test Item Value Reference Range Interpretation Comments PH ARTERIAL (BEAKER) (test code = 7.47 7.35-7.45 H 383) PCO2 ARTERIAL (BEAKER) (test code 37 mmHg 35-45 = 384) PO2 ARTERIAL (BEAKER) (test code = 90 mmHg 80-90 385) O2 SATURATION ARTERIAL (BEAKER) 96.7 % 96.0-97.0 (test code = 386) HCO3 ARTERIAL (BEAKER) (test code 26 mmol/L 21-29 = 388) BASE EXCESS ARTERIAL (BEAKER) 2.8 mmol/L -2.0-3.0 (test code = 387) PATIENT TEMPERATURE (BEAKER) (test 39.0 C code = 1818) FIO2 (BEAKER) (test code = 1819) 75.0 % [id number] 15:37:00 Test Item Value Reference Range Interpretation Comments FERRITIN (BEAKER) (test code = 839.22 ng/mL 5.00-275.00 H 361) Shoe Laster ID - ERIN [id number] 11:57:00 Test Item Value Reference Range Interpretation Comments PROCALCITONIN (BEAKER) (test code 0.05 ng/mL <0.05 H = 3036) SEPSIS RISK (ng/mL)Low: 0.05-0.50Intermediate: 0.51-2.00High: >=2.01LACTATE DEHYDROGENASE (LDH)2019-09-24 11:21:00 Test Item Value Reference Range Interpretation Comments LACTATE DEHYDROGENASE (BEAKER) (test 378 U/L 125-220 H code = 635) Shoe Laster ID - VALENTEC-REACTIVE [id number] 11:21:00 Test Item Value Reference Range Interpretation Comments C-REACTIVE PROTEIN (BEAKER) (test 0.50 mg/dL 0.00-0.50 code = 676) Shoe Laster ID - [id number] 11:18:00 Test Item Value Reference Range Interpretation Comments D-DIMER QUANTITATIVE (BEAKER) 2.68 MG/L FEU <0.50 H (test code = 671) Intended Use: The D-Dimer Assay can be used to aid in the diagnosis of Deep Vein Thrombosis (DVT) and Pulmonary Embolism Disease (PED).In patients with low pre- test probability, various studies concerning STA Liatest D-dimer test have reported that with a cutoff value of 0.50 MG/L FEU, the Negative Predictive Value (NPV) regarding the exclusion of thrombosis is within 95-100% range.POCT- GLUCOSE [id number] 11:12:00 Test Item Value Reference Range Interpretation Comments POC-GLUCOSE METER 275 mg/dL 70-110 H : TESTED A T [facility] 6720 (BEAKER) (test code [facility], = 1538) [id number]: Shoe Laster/Techni lavinia ID = [id number] for PAT MONROY BLOOD GAS, [id number] 11:03:00 Test Item Value Reference Range Interpretation Comments PH ARTERIAL (BEAKER) (test code = 7.51 7.35-7.45 H 383) PCO2 ARTERIAL (BEAKER) (test code 35 mmHg 35-45 = 384) PO2 ARTERIAL (BEAKER) (test code = 72 mmHg 80-90 L 385) O2 SATURATION ARTERIAL (BEAKER) 94.9 % 96.0-97.0 L (test code = 386) HCO3 ARTERIAL (BEAKER) (test code 27 mmol/L 21-29 = 388) BASE EXCESS ARTERIAL (BEAKER) 4.5 mmol/L -2.0-3.0 H (test code = 387) PATIENT TEMPERATURE (BEAKER) (test 38.5 C code = 1818) FIO2 (BEAKER) (test code = 1819) 85.0 % URINALYSIS W/ REFLEX URINE [id number] 10:54:00 Test Item Value Reference Range Interpretation Comments COLOR (BEAKER) (test code = 470) Yellow CLARITY (BEAKER) (test code = 469) Clear SPECIFIC GRAVITY UA (BEAKER) (test 1.017 1.001-1.035 code = 468) PH UA (BEAKER) (test code = 467) 6.0 5.0-8.0 PROTEIN UA (BEAKER) (test code = Negative Negative 464) GLUCOSE UA (BEAKER) (test code = 150 mg/dL Negative A 365) KETONES UA (BEAKER) (test code = Negative Negative 371) BILIRUBIN UA (BEAKER) (test code = Negative Negative 462) BLOOD UA (BEAKER) (test code = 461) Negative Negative NITRITE UA (BEAKER) (test code = Negative Negative 465) LEUKOCYTE ESTERASE UA (BEAKER) Negative Negative (test code = 466) UROBILINOGEN UA (BEAKER) (test code 3.0 mg/dL 0.2-1.0 H = 463) RBC UA (BEAKER) (test code = 519) 4 /HPF WBC UA (BEAKER) (test code = 520) 2 /HPF HYALINE CASTS (BEAKER) (test code = 1 /LPF 514) SOURCE(BEAKER) (test code = 2795) Shoe Laster ID - [auto]Shoe Laster ID - hankCBC W/PLT COUNT & AUTO DIFFERENTIAL 2019-09-24 09:56:00 Test Item Value Reference Range Interpretation Comments WHITE BLOOD CELL COUNT (BEAKER) 9.1 K/ L 3.5-10.5 (test code = 775) RED BLOOD CELL COUNT (BEAKER) 4.37 M/ L 4.63-6.08 L (test code = 761) HEMOGLOBIN (BEAKER) (test code = 12.7 GM/DL 13.7-17.5 L 410) HEMATOCRIT (BEAKER) (test code = 39.3 % 40.1-51.0 L 411) MEAN CORPUSCULAR VOLUME (BEAKER) 89.9 fL 79.0-92.2 (test code = 753) MEAN CORPUSCULAR HEMOGLOBIN 29.1 pg 25.7-32.2 (BEAKER) (test code = 751) MEAN CORPUSCULAR HEMOGLOBIN CONC 32.3 GM/DL 32.3-36.5 (BEAKER) (test code = 752) RED CELL DISTRIBUTION WIDTH 14.7 % 11.6-14.4 H (BEAKER) (test code = 412) PLATELET COUNT (BEAKER) (test 269 K/CU MM 150-450 code = 756) MEAN PLATELET VOLUME (BEAKER) 9.6 fL 9.4-12.4 (test code = 754) NUCLEATED RED BLOOD CELLS 1 /100 WBC 0-0 H (BEAKER) (test code = 413) (CELLAVISION MANUAL DIFF)2019-09-24 09:56:00 Test Item Value Reference Range Interpretation Comments NEUTROPHILS - REL 79 % (CELLAVISION)(BEAKER) (test code = 2816) LYMPHOCYTES - REL 9 % (CELLAVISION)(BEAKER) (test code = 2817) MONOCYTES - REL 6 % (CELLAVISION)(BEAKER) (test code = 2818) BANDS - REL (CELLAVISION)(BEAKER) 5 % 0-10 (test code = 2826) ATYPICAL LYMPHOCYTES - REL 2 % 0-0 H (CELLAVISION)(BEAKER) (test code = 2829) NEUTROPHILS - ABS 7.19 K/ul 1.78-5.38 H (CELLAVISION)(BEAKER) (test code = 2830) LYMPHOCYTES - ABS 0.82 K/ul 1.32-3.57 L (CELLAVISION)(BEAKER) (test code = 2831) MONOCYTES - ABS 0.55 K/uL 0.30-0.82 (CELLAVISION)(BEAKER) (test code = 2832) BANDS - ABS (CELLAVISION)(BEAKER) 0.46 K/uL 0.00-0.80 (test code = 2840) ATYPICAL LYMPHOCYTES - ABS 0.18 K/uL 0.00-0.00 H (CELLAVISION)(BEAKER) (test code = 2858) TOTAL COUNTED (BEAKER) (test code = 100 1351) RBC MORPHOLOGY (BEAKER) (test code Normal = 762) WBC MORPHOLOGY (BEAKER) (test code Normal = 487) PLT MORPHOLOGY (BEAKER) (test code Normal = 486) [id number] 08:39:00 Test Item Value Reference Range Interpretation Comments PROTIME (BEAKER) (test code = 15.2 seconds 11.9-14.2 H 759) INR (BEAKER) (test code = 370) 1.2 <=5.9 PARTIAL THROMBOPLASTIN TIME 76.8 seconds 22.5-36.0 H (BEAKER) (test code = 760) Effective 10/21/2018: PT Reference Range ChangeNew: 11.9-14.2 Previous: 11.7- 14.7RECOMMENDED COUMADIN/WARFARIN INR THERAPY RANGESSTANDARD DOSE: 2.0-3.0 Includes: PROPHYLAXIS for venous thrombosis, systemic embolization; TREATMENT for venous thrombosis and/or pulmonary embolus.HIGH RISK: Target INR is2.5-3.5 for patients wiht mechanical heart valves.RAD, CHEST, 1 VIEW, NON [id number] 08:15:00Reason for exam:->increasing O2 requirement; PNA evaluationShould this be performed at the bedside?->YesFINAL REPORT RAD, CHEST, 1 VIEW, NON DEPT INDICATION: increasing O2 requirement; PNA evaluation COMPARISON: September 22, 2019 FINDINGS: Portable frontal view of the chest. IMPRESSION: Limited by underpenetration.Support Lines: Stable. Lungs and pleura: Worsening interstitial and pleural opacities. No lobar consolidation. No pneumothorax.Heart and mediastinum: Stable contours. Add itional findings: None. Signed: JR Spicer Robert MDReport Verified Date/Time: 09/24/2019 08:15:15 Reading Location: [facility] Radiology Reading Room TROPONIN [id number] 06:33:00 Test Item Value Reference Range Interpretation Comments TROPONIN I (BEAKER) (test code = 0.02 ng/mL 0.00-0.03 397) Troponin I (TnI) levels must be interpreted in the context of the presenting symptoms and the clinical findings. Elevated TnI levels indicate myocardial damage, but are not specific for ischemic heart disease. Elevated TnI levels are seen in patients with other cardiac conditions (including myocarditis and congestive heart failure), and slight TnI elevations occur in patients with other conditions, including sepsis, renal failure, acidosis, acute neurological disease, and persistent tachyarrhythmia.Shoe Laster ID - EMERSONPHOSPHORUS 2019-09-24 06:31:00 Test Item Value Reference Range Interpretation Comments PHOSPHORUS (BEAKER) (test code = 4.2 mg/dL 2.3-4.7 604) Shoe Laster ID - [id number] 06:31:00 Test Item Value Reference Range Interpretation Comments MAGNESIUM (BEAKER) (test code = 2.0 mg/dL 1.6-2.6 627) Shoe Laster ID - BERNIESONCOMPREHENSIVE METABOLIC [id number] 06:31:00 Test Item Value Reference Range Interpretation Comments TOTAL PROTEIN 5.6 gm/dL 6.0-8.3 L (BEAKER) (test code = 770) ALBUMIN (BEAKER) 2.9 g/dL 3.5-5.0 L (test code = 1145) ALKALINE PHOSPHATASE 62 U/L 40-150 (BEAKER) (test code = 346) BILIRUBIN TOTAL 1.0 mg/dL 0.2-1.2 (BEAKER) (test code = 377) SODIUM (BEAKER) (test 140 meq/L 136-145 code = 381) POTASSIUM (BEAKER) 4.0 meq/L 3.5-5.1 (test code = 379) CHLORIDE (BEAKER) 107 meq/L 98-107 (test code = 382) CO2 (BEAKER) (test 26 meq/L 22-29 code = 355) BLOOD UREA NITROGEN 25 mg/dL 7-21 H (BEAKER) (test code = 354) CREATININE (BEAKER) 0.88 mg/dL 0.57-1.25 (test code = 358) GLUCOSE RANDOM 347 mg/dL 70-105 H (BEAKER) (test code = 652) CALCIUM (BEAKER) 8.2 mg/dL 8.4-10.2 L (test code = 697) AST (SGOT) (BEAKER) 58 U/L 5-34 H (test code = 353) ALT (SGPT) (BEAKER) 109 U/L 6-55 H (test code = 347) EGFR (BEAKER) (test 85 mL/min/1.73 ESTIMA COCO GFR IS code = 1092) sq m NOT ACCURATE CREATININE CLEARANCE IN PREDICTING GLOMERULAR FILTRATION RATE . ESTIMATED GFR I S NOT APPLICABLE FOR DIALYSIS PATIEN TS. Shoe Laster ID - [facility] METABOLIC [id number] 06:31:00 Test Item Value Reference Range Interpretation Comments SODIUM (BEAKER) 140 meq/L 136-145 (test code = 381) POTASSIUM (BEAKER) 4.0 meq/L 3.5-5.1 (test code = 379) CHLORIDE (BEAKER) 107 meq/L 98-107 (test code = 382) CO2 (BEAKER) (test 26 meq/L 22-29 code = 355) BLOOD UREA NITROGEN 25 mg/dL 7-21 H (BEAKER) (test code = 354) CREATININE (BEAKER) 0.88 mg/dL 0.57-1.25 (test code = 358) GLUCOSE RANDOM 347 mg/dL 70-105 H (BEAKER) (test code = 652) CALCIUM (BEAKER) 8.2 mg/dL 8.4-10.2 L (test code = 697) EGFR (BEAKER) (test 85 mL/min/1.73 ESTIMA COCO GFR IS code = 1092) sq m NOT ACCURATE CREATININE CLEARANCE IN PREDICTING GLOMERULAR FILTRATION RATE . ESTIMATED GFR I S NOT APPLICABLE FOR DIALYSIS PATIEN TS. [id number] 06:13:00 Test Item Value Reference Range Interpretation Comments PARTIAL THROMBOPLASTIN TIME 72.0 seconds 22.5-36.0 H (BEAKER) (test code = 760) 6 hours after starting heparin infusion and as indicated per sliding scalePOCT- GLUCOSE [id number] 05:59:00 Test Item Value Reference Range Interpretation Comments POC-GLUCOSE METER 308 mg/dL 70-110 H : TESTED A T [facility] 6720 (BEAKER) (test code = KVNG [facility], 1538) [address]: Shoe Laster/Techni lavinia ID = [id number] for ABRAHAM PEREZ CALCIUM, [id number] 04:01:00 Test Item Value Reference Range Interpretation Comments CALCIUM IONIZED (BEAKER) (test 1.13 mmol/L 1.12-1.27 code = 698) PH, BLOOD (BEAKER) (test code = 7.46 1810) BLOOD GAS, [id number] 04:01:00 Test Item Value Reference Range Interpretation Comments PH ARTERIAL (BEAKER) (test code = 7.46 7.35-7.45 H 383) PCO2 ARTERIAL (BEAKER) (test code 36 mmHg 35-45 = 384) PO2 ARTERIAL (BEAKER) (test code = 63 mmHg 80-90 L 385) O2 SATURATION ARTERIAL (BEAKER) 93.0 % 96.0-97.0 L (test code = 386) HCO3 ARTERIAL (BEAKER) (test code 25 mmol/L 21-29 = 388) BASE EXCESS ARTERIAL (BEAKER) 1.4 mmol/L -2.0-3.0 (test code = 387) PATIENT TEMPERATURE (BEAKER) (test 37.2 C code = 1818) FIO2 (BEAKER) (test code = 1819) 70.0 % TROPONIN [id number] 01:35:00 Test Item Value Reference Range Interpretation Comments TROPONIN I (BEAKER) (test code = 0.01 ng/mL 0.00-0.03 397) Troponin I (TnI) levels must be interpreted in the context of the presenting symptoms and the clinical findings. Elevated TnI levels indicate myocardial damage, but are not specific for ischemic heart disease. Elevated TnI levels are seen in patients with other cardiac conditions (including myocarditis and congestive heart failure), and slight TnI elevations occur in patients with other conditions, including sepsis, renal failure, acidosis, acute neurological disease, and persistent tachyarrhythmia.Shoe Laster ID - BSBASIC METABOLIC PANEL 2019-09-24 01:28:00 Test Item Value Reference Range Interpretation Comments SODIUM (BEAKER) 142 meq/L 136-145 (test code = 381) POTASSIUM (BEAKER) 3.9 meq/L 3.5-5.1 (test code = 379) CHLORIDE (BEAKER) 107 meq/L 98-107 (test code = 382) CO2 (BEAKER) (test 26 meq/L 22-29 code = 355) BLOOD UREA NITROGEN 22 mg/dL 7-21 H (BEAKER) (test code = 354) CREATININE (BEAKER) 0.79 mg/dL 0.57-1.25 (test code = 358) GLUCOSE RANDOM 276 mg/dL 70-105 H (BEAKER) (test code = 652) CALCIUM (BEAKER) 8.7 mg/dL 8.4-10.2 (test code = 697) EGFR (BEAKER) (test 96 mL/min/1.73 ESTIMA COCO GFR IS code = 1092) sq m NOT ACCURATE CREATININE CLEARANCE IN PREDICTING GLOMERULAR FILTRATION RATE . ESTIMATED GFR I S NOT APPLICABLE FOR DIALYSIS PATIEN TS. Shoe Laster ID - BSPOCT-GLUCOSE [id number] 00:03:00 Test Item Value Reference Range Interpretation Comments POC-GLUCOSE METER 213 mg/dL 70-110 H : [facility] (test code = [facility] [place], 1538) [address]: Shoe Laster/Techni lavinia ID = [id number] for VO LTIN EDD [id number] 23:12:00 Test Item Value Reference Range Interpretation Comments PHOSPHORUS (BEAKER) (test code = 4.2 mg/dL 2.3-4.7 604) Shoe Laster ID - [id number] 23:12:00 Test Item Value Reference Range Interpretation Comments MAGNESIUM (BEAKER) (test code = 2.0 mg/dL 1.6-2.6 627) Shoe Laster ID - BSCALCIUM, [id number] 22:57:00 Test Item Value Reference Range Interpretation Comments CALCIUM IONIZED (BEAKER) (test 1.09 mmol/L 1.12-1.27 L code = 698) PH, BLOOD (BEAKER) (test code = 7.43 1810) BLOOD GAS, [id number] 21:24:00 Test Item Value Reference Range Interpretation Comments PH ARTERIAL (BEAKER) (test code = 7.51 7.35-7.45 H 383) PCO2 ARTERIAL (BEAKER) (test code 36 mmHg 35-45 = 384) PO2 ARTERIAL (BEAKER) (test code = 59 mmHg 80-90 L 385) O2 SATURATION ARTERIAL (BEAKER) 92.2 % 96.0-97.0 L (test code = 386) HCO3 ARTERIAL (BEAKER) (test code 28 mmol/L 21-29 = 388) BASE EXCESS ARTERIAL (BEAKER) 5.1 mmol/L -2.0-3.0 H (test code = 387) PATIENT TEMPERATURE (BEAKER) (test 37.7 C code = 1818) FIO2 (BEAKER) (test code = 1819) 45.0 % POCT-GLUCOSE [id number] 16:30:00 Test Item Value Reference Range Interpretation Comments POC-GLUCOSE METER 246 mg/dL 70-110 H : TESTED A T [facility] 6720 (BEAKER) (test code = [facility] [place], 1538) [address]: Shoe Laster/Techni lavinia ID = [id number] for FLAKITA BELTRAN BLOOD GAS, [id number] 15:59:00 Test Item Value Reference Range Interpretation Comments PH ARTERIAL (BEAKER) (test code = 7.50 7.35-7.45 H 383) PCO2 ARTERIAL (BEAKER) (test code 33 mmHg 35-45 L = 384) PO2 ARTERIAL (BEAKER) (test code = 118 mmHg 80-90 H 385) O2 SATURATION ARTERIAL (BEAKER) 98.6 % 96.0-97.0 H (test code = 386) HCO3 ARTERIAL (BEAKER) (test code 25 mmol/L 21-29 = 388) BASE EXCESS ARTERIAL (BEAKER) 2.7 mmol/L -2.0-3.0 (test code = 387) PATIENT TEMPERATURE (BEAKER) (test 37.5 C code = 1818) FIO2 (BEAKER) (test code = 1819) 70.0 % [id number] 15:45:00 Test Item Value Reference Range Interpretation Comments POTASSIUM (BEAKER) (test code = 3.8 meq/L 3.5-5.1 379) Shoe Laster ID - [id number] 15:45:00 Test Item Value Reference Range Interpretation Comments MAGNESIUM (BEAKER) (test code = 2.2 mg/dL 1.6-2.6 627) Shoe Laster ID - AAHAMIDPOCT-GLUCOSE [id number] 12:00:00 Test Item Value Reference Range Interpretation Comments POC-GLUCOSE METER 277 mg/dL 70-110 H : TESTED A T [facility] 6720 (BEAKER) (test code = [facility] [place], 1538) [address]: Shoe Laster/Techni lavinia ID = [id number] for WILD HARRISON [id number] 11:57:00 Test Item Value Reference Range Interpretation Comments POTASSIUM (BEAKER) (test code = 3.8 meq/L 3.5-5.1 379) Shoe Laster ID - AAHAMIDBLOOD GAS, [id number] 09:30:00 Test Item Value Reference Range Interpretation Comments PH ARTERIAL (BEAKER) (test code = 7.51 7.35-7.45 H 383) PCO2 ARTERIAL (BEAKER) (test code 33 mmHg 35-45 L = 384) PO2 ARTERIAL (BEAKER) (test code = 127 mmHg 80-90 H 385) O2 SATURATION ARTERIAL (BEAKER) 98.8 % 96.0-97.0 H (test code = 386) HCO3 ARTERIAL (BEAKER) (test code 25 mmol/L 21-29 = 388) BASE EXCESS ARTERIAL (BEAKER) 3.0 mmol/L -2.0-3.0 (test code = 387) PATIENT TEMPERATURE (BEAKER) (test 37.5 C code = 1818) FIO2 (BEAKER) (test code = 1819) 70.0 % SARS-COV2/RT-PCR ([facility])2019-09-23 08:23:00 Test Item Value Reference Range Interpretation Comments SARS-COV2/RT-PCR (test code = Positive Not Detected, Negative A A 2681471) SARS-COV-2 PERFORMING LAB CPL (test code = 5441202) THROMBOELASTOGRAPH (TEG)2019-09-23 07:57:00 Test Item Value Reference Range Interpretation Comments TEG ACTIVATED CLOTTING TIME 21.8 minutes 4.0-7.0 H (BEAKER) (test code = 1407) TEG FIBRINOGEN ACTIVITY (BEAKER) 24.2 degrees 61.0-73.0 L (test code = 1408) TEG PLT. AGGREGATION (BEAKER) 57.9 MM 55.0-65.0 (test code = 1409) TGH ACTIVATED CLOTTING TIME 7.2 minutes 4.0-7.0 H (BEAKER) (test code = 1411) TGH FIBRINOGEN ACTIVITY (BEAKER) 71.8 degrees 61.0-73.0 (test code = 1412) TGH PLT. AGGREGATION (BEAKER) 69.9 MM 55.0-65.0 H G=11.6k (test code = 1413) CBC W/PLT COUNT & AUTO [id number] 06:18:00 Test Item Value Reference Range Interpretation Comments WHITE BLOOD CELL COUNT (BEAKER) 7.0 K/ L 3.5-10.5 (test code = 775) RED BLOOD CELL COUNT (BEAKER) 4.71 M/ L 4.63-6.08 (test code = 761) HEMOGLOBIN (BEAKER) (test code = 13.3 GM/DL 13.7-17.5 L 410) HEMATOCRIT (BEAKER) (test code = 41.8 % 40.1-51.0 411) MEAN CORPUSCULAR VOLUME (BEAKER) 88.7 fL 79.0-92.2 (test code = 753) MEAN CORPUSCULAR HEMOGLOBIN 28.2 pg 25.7-32.2 (BEAKER) (test code = 751) MEAN CORPUSCULAR HEMOGLOBIN CONC 31.8 GM/DL 32.3-36.5 L (BEAKER) (test code = 752) RED CELL DISTRIBUTION WIDTH 14.3 % 11.6-14.4 (BEAKER) (test code = 412) PLATELET COUNT (BEAKER) (test 295 K/CU MM 150-450 code = 756) MEAN PLATELET VOLUME (BEAKER) 9.9 fL 9.4-12.4 (test code = 754) NUCLEATED RED BLOOD CELLS 1 /100 WBC 0-0 H (BEAKER) (test code = 413) (CELLAVISION MANUAL DIFF)2019-09-23 06:18:00 Test Item Value Reference Range Interpretation Comments NEUTROPHILS - REL 69 % (CELLAVISION)(BEAKER) (test code = 2816) LYMPHOCYTES - REL 11 % (CELLAVISION)(BEAKER) (test code = 2817) MONOCYTES - REL 10 % (CELLAVISION)(BEAKER) (test code = 2818) BASOPHILS - REL 1 % (CELLAVISION)(BEAKER) (test code = 2820) METAMYELOCYTES - REL 2 % 0-0 H (CELLAVISION)(BEAKER) (test code = 2821) MYELOCYTES - REL 4 % 0-0 H (CELLAVISION)(BEAKER) (test code = 2822) BANDS - REL (CELLAVISION)(BEAKER) 2 % 0-10 (test code = 2826) NEUTROPHILS - ABS 4.83 K/ul 1.78-5.38 (CELLAVISION)(BEAKER) (test code = 2830) LYMPHOCYTES - ABS 0.77 K/ul 1.32-3.57 L (CELLAVISION)(BEAKER) (test code = 2831) MONOCYTES - ABS 0.70 K/uL 0.30-0.82 (CELLAVISION)(BEAKER) (test code = 2832) BASOPHILS - ABS 0.07 K/uL 0.01-0.08 (CELLAVISION)(BEAKER) (test code = 2835) METAMYELOCYTES - ABS 0.14 K/uL 0.00-0.00 H (CELLAVISION)(BEAKER) (test code = 2836) MYELOCYTES-ABS 0.28 K/uL 0.00-0.00 H (CELLAVISION)(BEAKER) (test code = 2837) BANDS - ABS (CELLAVISION)(BEAKER) 0.14 K/uL 0.00-0.80 (test code = 2840) TOTAL COUNTED (BEAKER) (test code = 100 1351) WBC MORPHOLOGY (BEAKER) (test code Normal = 487) PLT MORPHOLOGY (BEAKER) (test code Normal = 486) POLYCHROMATOPHILLIC RBCS(BEAKER) 1+ few (test code = 478) ARTIFACT (CELLAVISION)(BEAKER) Present (test code = 3432) PLATELET CONCENTRATION Adequate (CELLAVISION)(BEAKER) (test code = 3438) Shoe Laster ID - Valente Megan comments: Slide comments:POCT-GLUCOSE METER 2019-09-23 05:50:00 Test Item Value Reference Range Interpretation Comments POC-GLUCOSE METER 221 mg/dL 70-110 H : TESTED A T [facility] (BEAKER) (test code = [place], 1538) [id number]: Shoe Laster/Techni lavinia ID = [id number] for Victoria Sharif [id number] 05:46:00 Test Item Value Reference Range Interpretation Comments D-DIMER QUANTITATIVE (BEAKER) 3.26 MG/L FEU <0.50 H (test code = 671) Intended Use: The D-Dimer Assay can be used to aid in the diagnosis of Deep Vein Thrombosis (DVT) and Pulmonary Embolism Disease (PED).In patients with low pre- test probability, various studies concerning STA Liatest D-dimer test have reported that with a cutoff value of 0.50 MG/L FEU, the Negative Predictive Value (NPV) regarding the exclusion of thrombosis is within 95-100% range.6 hours after starting heparin infusion and as indicated per sliding scaleAPTT 2019-09-23 05:45:00 Test Item Value Reference Range Interpretation Comments PARTIAL THROMBOPLASTIN TIME 64.6 seconds 22.5-36.0 H (BEAKER) (test code = 760) 6 hours after starting heparin infusion and as indicated per sliding scale [id number] 05:22:00 Test Item Value Reference Range Interpretation Comments PHOSPHORUS (BEAKER) (test code = 3.9 mg/dL 2.3-4.7 604) Shoe Laster ID - [id number] 05:22:00 Test Item Value Reference Range Interpretation Comments MAGNESIUM (BEAKER) (test code = 1.9 mg/dL 1.6-2.6 627) Shoe Laster ID - LACOMPREHENSIVE METABOLIC [id number] 05:22:00 Test Item Value Reference Range Interpretation Comments TOTAL PROTEIN 5.7 gm/dL 6.0-8.3 L (BEAKER) (test code = 770) ALBUMIN (BEAKER) 2.9 g/dL 3.5-5.0 L (test code = 1145) ALKALINE PHOSPHATASE 65 U/L 40-150 (BEAKER) (test code = 346) BILIRUBIN TOTAL 0.9 mg/dL 0.2-1.2 (BEAKER) (test code = 377) SODIUM (BEAKER) (test 140 meq/L 136-145 code = 381) POTASSIUM (BEAKER) 3.7 meq/L 3.5-5.1 (test code = 379) CHLORIDE (BEAKER) 106 meq/L 98-107 (test code = 382) CO2 (BEAKER) (test 27 meq/L 22-29 code = 355) BLOOD UREA NITROGEN 25 mg/dL 7-21 H (BEAKER) (test code = 354) CREATININE (BEAKER) 0.80 mg/dL 0.57-1.25 (test code = 358) GLUCOSE RANDOM 318 mg/dL 70-105 H (BEAKER) (test code = 652) CALCIUM (BEAKER) 8.4 mg/dL 8.4-10.2 (test code = 697) AST (SGOT) (BEAKER) 93 U/L 5-34 H (test code = 353) ALT (SGPT) (BEAKER) 136 U/L 6-55 H (test code = 347) EGFR (BEAKER) (test 94 mL/min/1.73 ESTIMA COCO GFR IS code = 1092) sq m NOT ACCURATE CREATININE CLEARANCE IN PREDICTING GLOMERULAR FILTRATION RATE . ESTIMATED GFR I S NOT APPLICABLE FOR DIALYSIS PATIEN TS. Shoe Laster ID - LABLOOD GAS, [id number] 05:03:00 Test Item Value Reference Range Interpretation Comments PH ARTERIAL (BEAKER) (test code = 7.49 7.35-7.45 H 383) PCO2 ARTERIAL (BEAKER) (test code 37 mmHg 35-45 = 384) PO2 ARTERIAL (BEAKER) (test code = 65 mmHg 80-90 L 385) O2 SATURATION ARTERIAL (BEAKER) 94.5 % 96.0-97.0 L (test code = 386) HCO3 ARTERIAL (BEAKER) (test code 27 mmol/L 21-29 = 388) BASE EXCESS ARTERIAL (BEAKER) 3.7 mmol/L -2.0-3.0 H (test code = 387) PATIENT TEMPERATURE (BEAKER) (test 36.8 C code = 1818) FIO2 (BEAKER) (test code = 1819) 55.0 % CALCIUM, [id number] 05:02:00 Test Item Value Reference Range Interpretation Comments CALCIUM IONIZED (BEAKER) (test 1.14 mmol/L 1.12-1.27 code = 698) PH, BLOOD (BEAKER) (test code = 7.48 1810) BLOOD GAS, [id number] 23:17:00 Test Item Value Reference Range Interpretation Comments PH ARTERIAL (BEAKER) (test code = 7.51 7.35-7.45 H 383) PCO2 ARTERIAL (BEAKER) (test code 36 mmHg 35-45 = 384) PO2 ARTERIAL (BEAKER) (test code = 66 mmHg 80-90 L 385) O2 SATURATION ARTERIAL (BEAKER) 95.0 % 96.0-97.0 L (test code = 386) HCO3 ARTERIAL (BEAKER) (test code 29 mmol/L 21-29 = 388) BASE EXCESS ARTERIAL (BEAKER) 5.3 mmol/L -2.0-3.0 H (test code = 387) PATIENT TEMPERATURE (BEAKER) (test 36.6 C code = 1818) FIO2 (BEAKER) (test code = 1819) 55.0 % POCT-GLUCOSE [id number] 23:15:00 Test Item Value Reference Range Interpretation Comments POC-GLUCOSE METER 211 mg/dL 70-110 H : TESTED A T [facility] 6720 (BEAKER) (test code = [place], 1538) [id number]: Shoe Laster/Techni lavinia ID = [id number] for Gagandeep Dwyer BLOOD GAS, [id number] 19:10:00 Test Item Value Reference Range Interpretation Comments PH ARTERIAL (BEAKER) 7.45 7.35-7.45 (test code = 383) PCO2 ARTERIAL (BEAKER) 43 mmHg 35-45 (test code = 384) PO2 ARTERIAL (BEAKER) 68 mmHg 80-90 L (test code = 385) O2 SATURATION ARTERIAL 93.8 % 96.0-97.0 L (BEAKER) (test code = 386) HCO3 ARTERIAL (BEAKER) 29 mmol/L 21-29 (test code = 388) BASE EXCESS ARTERIAL 4.3 mmol/L -2.0-3.0 H (BEAKER) (test code = 387) PATIENT TEMPERATURE 37.5 C (BEAKER) (test code = 1818) FIO2 (BEAKER) (test 70 % FIO2 rohan nged per code = 1819) [id number] is a corrected resul t. Previous result was 100.0 % on 09/21 at 0926 CDT POCT-GLUCOSE [id number] 18:13:00 Test Item Value Reference Range Interpretation Comments POC-GLUCOSE METER 265 mg/dL 70-110 H : TESTED A T [facility] 6720 (BEAKER) (test code = [place], 1538) [address]: Shoe Laster/Techni lavinia ID = [id number] for DEDE ROSALES BLOOD GAS, [id number] 18:11:00 Test Item Value Reference Range Interpretation Comments PH ARTERIAL (BEAKER) (test code = 7.51 7.35-7.45 H 383) PCO2 ARTERIAL (BEAKER) (test code 37 mmHg 35-45 = 384) PO2 ARTERIAL (BEAKER) (test code = 61 mmHg 80-90 L 385) O2 SATURATION ARTERIAL (BEAKER) 93.6 % 96.0-97.0 L (test code = 386) HCO3 ARTERIAL (BEAKER) (test code 29 mmol/L 21-29 = 388) BASE EXCESS ARTERIAL (BEAKER) 5.5 mmol/L -2.0-3.0 H (test code = 387) PATIENT TEMPERATURE (BEAKER) (test 36.9 C code = 1818) FIO2 (BEAKER) (test code = 1819) 55.0 % URIC [id number] 12:48:00 Test Item Value Reference Range Interpretation Comments URIC ACID (BEAKER) (test code = 3.6 mg/dL 2.6-7.2 773) Shoe Laster ID - DBBLOOD GAS, [id number] 12:27:00 Test Item Value Reference Range Interpretation Comments PH ARTERIAL (BEAKER) (test code = 7.48 7.35-7.45 H 383) PCO2 ARTERIAL (BEAKER) (test code 39 mmHg 35-45 = 384) PO2 ARTERIAL (BEAKER) (test code = 76 mmHg 80-90 L 385) O2 SATURATION ARTERIAL (BEAKER) 96.2 % 96.0-97.0 (test code = 386) HCO3 ARTERIAL (BEAKER) (test code 28 mmol/L 21-29 = 388) BASE EXCESS ARTERIAL (BEAKER) 4.5 mmol/L -2.0-3.0 H (test code = 387) PATIENT TEMPERATURE (BEAKER) (test 36.7 C code = 1818) FIO2 (BEAKER) (test code = 1819) 60.0 % POCT-GLUCOSE [id number] 12:09:00 Test Item Value Reference Range Interpretation Comments POC-GLUCOSE METER 253 mg/dL 70-110 H : TESTED A T [facility] 6720 (BEAKER) (test code = [place], 1538) [address]: Shoe Laster/Techni lavinia ID = [id number] for DEDE ROSALES [id number] 10:57:00 Test Item Value Reference Range Interpretation Comments FERRITIN (BEAKER) (test code = 1604.60 ng/mL 5.00-275.00 H 361) Shoe Laster ID - [id number] 10:18:00 Test Item Value Reference Range Interpretation Comments PROCALCITONIN (BEAKER) (test code 0.08 ng/mL <0.05 H = 3036) SEPSIS RISK (ng/mL)Low: 0.05-0.50Intermediate: 0.51-2.00High: >=2.01LACTATE DEHYDROGENASE (LDH)2019-09-22 09:47:00 Test Item Value Reference Range Interpretation Comments LACTATE DEHYDROGENASE (BEAKER) (test 463 U/L 125-220 H code = 635) Shoe Laster ID - DBC-REACTIVE [id number] 09:47:00 Test Item Value Reference Range Interpretation Comments C-REACTIVE PROTEIN (BEAKER) (test 0.64 mg/dL 0.00-0.50 H code = 676) Shoe Laster ID - [id number] 09:40:00 Test Item Value Reference Range Interpretation Comments D-DIMER QUANTITATIVE (BEAKER) 3.12 MG/L FEU <0.50 H (test code = 671) Intended Use: The D-Dimer Assay can be used to aid in the diagnosis of Deep Vein Thrombosis (DVT) and Pulmonary Embolism Disease (PED).In patients with low pre- test probability, various studies concerning STA Liatest D-dimer test have reported that with a cutoff value of 0.50 MG/L FEU, the Negative Predictive Value (NPV) regarding the exclusion of thrombosis is within 95-100% range. PT/[id number] 09:39:00 Test Item Value Reference Range Interpretation Comments PROTIME (BEAKER) (test code = 14.0 seconds 11.9-14.2 759) INR (BEAKER) (test code = 370) 1.1 <=5.9 PARTIAL THROMBOPLASTIN TIME 70.1 seconds 22.5-36.0 H (BEAKER) (test code = 760) Effective 10/21/2018: PT Reference Range ChangeNew: 11.9-14.2 Previous: 11.7- 14.7RECOMMENDED COUMADIN/WARFARIN INR THERAPY RANGESSTANDARD DOSE: 2.0-3.0 Includes: PROPHYLAXIS for venous thrombosis, systemic embolization; TREATMENT for venous thrombosis and/or pulmonary embolus.HIGH RISK: Target INR is2.5-3.5 for patients wiht mechanical heart valves.CBC W/PLT COUNT & AUTO [id number] 07:25:00 Test Item Value Reference Range Interpretation Comments WHITE BLOOD CELL COUNT (BEAKER) 7.7 K/ L 3.5-10.5 (test code = 775) RED BLOOD CELL COUNT (BEAKER) 4.44 M/ L 4.63-6.08 L (test code = 761) HEMOGLOBIN (BEAKER) (test code = 13.1 GM/DL 13.7-17.5 L 410) HEMATOCRIT (BEAKER) (test code = 40.2 % 40.1-51.0 411) MEAN CORPUSCULAR VOLUME (BEAKER) 90.5 fL 79.0-92.2 (test code = 753) MEAN CORPUSCULAR HEMOGLOBIN 29.5 pg 25.7-32.2 (BEAKER) (test code = 751) MEAN CORPUSCULAR HEMOGLOBIN CONC 32.6 GM/DL 32.3-36.5 (BEAKER) (test code = 752) RED CELL DISTRIBUTION WIDTH 14.2 % 11.6-14.4 (BEAKER) (test code = 412) PLATELET COUNT (BEAKER) (test 257 K/CU MM 150-450 code = 756) MEAN PLATELET VOLUME (BEAKER) 9.7 fL 9.4-12.4 (test code = 754) NUCLEATED RED BLOOD CELLS 2 /100 WBC 0-0 H (BEAKER) (test code = 413) (CELLAVISION MANUAL DIFF)2019-09-22 07:25:00 Test Item Value Reference Range Interpretation Comments NEUTROPHILS - REL 67 % (CELLAVISION)(BEAKER) (test code = 2816) LYMPHOCYTES - REL 13 % (CELLAVISION)(BEAKER) (test code = 2817) MONOCYTES - REL 6 % (CELLAVISION)(BEAKER) (test code = 2818) EOSINOPHILS - REL 3 % (CELLAVISION)(BEAKER) (test code = 2819) METAMYELOCYTES - REL 4 % 0-0 H (CELLAVISION)(BEAKER) (test code = 2821) MYELOCYTES - REL 2 % 0-0 H (CELLAVISION)(BEAKER) (test code = 2822) BANDS - REL (CELLAVISION)(BEAKER) 4 % 0-10 (test code = 2826) NEUTROPHILS - ABS 5.16 K/ul 1.78-5.38 (CELLAVISION)(BEAKER) (test code = 2830) LYMPHOCYTES - ABS 1.00 K/ul 1.32-3.57 L (CELLAVISION)(BEAKER) (test code = 2831) MONOCYTES - ABS 0.46 K/uL 0.30-0.82 (CELLAVISION)(BEAKER) (test code = 2832) EOSINOPHILS - ABS 0.23 K/uL 0.04-0.54 (CELLAVISION)(BEAKER) (test code = 2834) METAMYELOCYTES - ABS 0.31 K/uL 0.00-0.00 H (CELLAVISION)(BEAKER) (test code = 2836) MYELOCYTES-ABS 0.15 K/uL 0.00-0.00 H (CELLAVISION)(BEAKER) (test code = 2837) BANDS - ABS (CELLAVISION)(BEAKER) 0.31 K/uL 0.00-0.80 (test code = 2840) TOTAL COUNTED (BEAKER) (test code = 100 1351) WBC MORPHOLOGY (BEAKER) (test code Normal = 487) GIANT PLATELETS (BEAKER) (test code Present = 313) POLYCHROMATOPHILLIC RBCS(BEAKER) 1+ few (test code = 478) ANISOCYTOSIS (BEAKER) (test code = 1+ few 961) MICROCYTES (BEAKER) (test code = 1+ few 965) POIKILOCYTES (BEAKER) (test code = 1+ few 966) ELLIPTOCYTES (BEAKER) (test code = 1+ few 962) OVALOCYTES (BEAKER) (test code = 1+ few 477) KELLIE CELLS (BEAKER) (test code = 1+ few 474) ARTIFACT (CELLAVISION)(BEAKER) Present (test code = 3432) PLATELET CONCENTRATION Adequate (CELLAVISION)(BEAKER) (test code = 3438) Shoe Laster ID - Mary Ann comments: Slide comments:POCT-GLUCOSE [id number] 06:39:00 Test Item Value Reference Range Interpretation Comments POC-GLUCOSE METER 209 mg/dL 70-110 H : TESTED A T [facility] 6720 (BEAKER) (test code = [place], 1538) [address]: Shoe Laster/Techni lavinia ID = [id number] for EM ABRAHAM CRAIG CALCIUM, [id number] 04:53:00 Test Item Value Reference Range Interpretation Comments CALCIUM IONIZED (BEAKER) (test 1.16 mmol/L 1.12-1.27 code = 698) PH, BLOOD (BEAKER) (test code = 7.44 1810) OXYGEN SATURATION, [id number] 04:49:00 Test Item Value Reference Range Interpretation Comments O2 SATURATION (MEASURED) (BEAKER) 96.9 % (test code = 1455) CENTRAL LINE ONLY Please draw from central venous line - do NOT draw from arterial [id number] 04:22:00 Test Item Value Reference Range Interpretation Comments PHOSPHORUS (BEAKER) (test code = 4.1 mg/dL 2.3-4.7 604) Shoe Laster ID - [id number] 04:22:00 Test Item Value Reference Range Interpretation Comments MAGNESIUM (BEAKER) (test code = 2.0 mg/dL 1.6-2.6 627) Shoe Laster ID - LACOMPREHENSIVE METABOLIC [id number] 04:22:00 Test Item Value Reference Range Interpretation Comments TOTAL PROTEIN 5.5 gm/dL 6.0-8.3 L (BEAKER) (test code = 770) ALBUMIN (BEAKER) 2.8 g/dL 3.5-5.0 L (test code = 1145) ALKALINE PHOSPHATASE 63 U/L 40-150 (BEAKER) (test code = 346) BILIRUBIN TOTAL 0.9 mg/dL 0.2-1.2 (BEAKER) (test code = 377) SODIUM (BEAKER) (test 140 meq/L 136-145 code = 381) POTASSIUM (BEAKER) 3.8 meq/L 3.5-5.1 (test code = 379) CHLORIDE (BEAKER) 106 meq/L 98-107 (test code = 382) CO2 (BEAKER) (test 27 meq/L 22-29 code = 355) BLOOD UREA NITROGEN 24 mg/dL 7-21 H (BEAKER) (test code = 354) CREATININE (BEAKER) 0.77 mg/dL 0.57-1.25 (test code = 358) GLUCOSE RANDOM 265 mg/dL 70-105 H (BEAKER) (test code = 652) CALCIUM (BEAKER) 8.5 mg/dL 8.4-10.2 (test code = 697) AST (SGOT) (BEAKER) 138 U/L 5-34 H (test code = 353) ALT (SGPT) (BEAKER) 130 U/L 6-55 H (test code = 347) EGFR (BEAKER) (test 99 mL/min/1.73 ESTIMA COCO GFR IS code = 1092) sq m NOT ACCURATE CREATININE CLEARANCE IN PREDICTING GLOMERULAR FILTRATION RATE . ESTIMATED GFR I S NOT APPLICABLE FOR DIALYSIS PATIEN TS. Shoe Laster ID - [id number] 04:20:00 Test Item Value Reference Range Interpretation Comments MAGNESIUM (BEAKER) (test code = 2.0 mg/dL 1.6-2.6 627) Shoe Laster ID - [id number] 04:08:00 Test Item Value Reference Range Interpretation Comments PARTIAL THROMBOPLASTIN TIME 66.1 seconds 22.5-36.0 H (BEAKER) (test code = 760) 6 hours after starting heparin infusion and as indicated per sliding scaleRAD, CHEST, 1 VIEW, NON [id number] 03:51:00Reason for exam:->On mechanical ventilationShould this be performed at the bedside?->YesFINAL REPORT RAD, CHEST, 1 VIEW, NON DEPT INDICATION: On mechanical ventilatio n COMPARISON: Prior day's exam FINDINGS: Portable frontal view of the chest. IMPRESSION: Support Lines: Stable. Lungs and pleura: Unchanged bilateral airspace opacities. No sizable effusion. No pneumothorax.Heart and mediastinum: Stable contours. Additional findings: None. Signed: Saeed Morris MDReport Verified Date/Time: 09/22/2019 03:51:37 BLOOD GAS, [id number] 00:33:00 Test Item Value Reference Range Interpretation Comments PH ARTERIAL (BEAKER) (test code = 7.48 7.35-7.45 H 383) PCO2 ARTERIAL (BEAKER) (test code 39 mmHg 35-45 = 384) PO2 ARTERIAL (BEAKER) (test code = 115 mmHg 80-90 H 385) O2 SATURATION ARTERIAL (BEAKER) 98.4 % 96.0-97.0 H (test code = 386) HCO3 ARTERIAL (BEAKER) (test code 28 mmol/L -29 = 388) BASE EXCESS ARTERIAL (BEAKER) 4.5 mmol/L -2.0-3.0 H (test code = 387) PATIENT TEMPERATURE (BEAKER) (test 37.0 C code = 1818) FIO2 (BEAKER) (test code = 1819) 70.0 % POCT-GLUCOSE [id number] 00:16:00 Test Item Value Reference Range Interpretation Comments POC-GLUCOSE METER 237 mg/dL 70-110 H : TESTED A T [facility] 6720 (BEAKER) (test code = KVNG [place], 1538) [address]: Shoe Laster/Techni lavinia ID = [id number] for ABRAHAM PEREZ POCT-GLUCOSE [id number] 21:38:00 Test Item Value Reference Range Interpretation Comments POC-GLUCOSE METER 245 mg/dL 70-110 H : TESTED A T [facility] 6720 (BEAKER) (test code = [place], 1538) [address]: Shoe Laster/Techni lavinia ID = [id number] for ABRAHAM PEREZ POCT-GLUCOSE [id number] 18:32:00 Test Item Value Reference Range Interpretation Comments POC-GLUCOSE METER 236 mg/dL 70-110 H : TESTED A T [facility] 6720 (BEAKER) (test code = [place], 1538) [address]: Shoe Laster/Techni lavinia ID = [id number] for PATRICK JUAREZ [id number] 18:27:00 Test Item Value Reference Range Interpretation Comments PARTIAL THROMBOPLASTIN TIME 70.3 seconds 22.5-36.0 H (BEAKER) (test code = 760) BLOOD GAS, [id number] 18:15:00 Test Item Value Reference Range Interpretation Comments PH ARTERIAL (BEAKER) (test code = 7.48 7.35-7.45 H 383) PCO2 ARTERIAL (BEAKER) (test code 40 mmHg 35-45 = 384) PO2 ARTERIAL (BEAKER) (test code = 60 mmHg 80-90 L 385) O2 SATURATION ARTERIAL (BEAKER) 92.4 % 96.0-97.0 L (test code = 386) HCO3 ARTERIAL (BEAKER) (test code 29 mmol/L 21-29 = 388) BASE EXCESS ARTERIAL (BEAKER) 5.0 mmol/L -2.0-3.0 H (test code = 387) PATIENT TEMPERATURE (BEAKER) (test 37.0 C code = 1818) FIO2 (BEAKER) (test code = 1819) 60.0 % BASIC METABOLIC [id number] 15:48:00 Test Item Value Reference Range Interpretation Comments SODIUM (BEAKER) 142 meq/L 136-145 (test code = 381) POTASSIUM (BEAKER) 3.8 meq/L 3.5-5.1 (test code = 379) CHLORIDE (BEAKER) 106 meq/L 98-107 (test code = 382) CO2 (BEAKER) (test 31 meq/L 22-29 H code = 355) BLOOD UREA NITROGEN 23 mg/dL 7-21 H (BEAKER) (test code = 354) CREATININE (BEAKER) 0.77 mg/dL 0.57-1.25 (test code = 358) GLUCOSE RANDOM 292 mg/dL 70-105 H (BEAKER) (test code = 652) CALCIUM (BEAKER) 8.3 mg/dL 8.4-10.2 L (test code = 697) EGFR (BEAKER) (test 99 mL/min/1.73 ESTIMA COCO GFR IS code = 1092) sq m NOT ACCURATE CREATININE CLEARANCE IN PREDICTING GLOMERULAR FILTRATION RATE . ESTIMATED GFR I S NOT APPLICABLE FOR DIALYSIS PATIEN TS. Shoe Laster ID - NTPPOCT-GLUCOSE [id number] 11:59:00 Test Item Value Reference Range Interpretation Comments POC-GLUCOSE METER 262 mg/dL 70-110 H : TESTED A T [facility] 6720 (BEAKER) (test code = [place], 1538) [address]: Shoe Laster/Techni lavinia ID = [id number] for PATRICK JUAREZ BLOOD GAS, [id number] 10:22:00 Test Item Value Reference Range Interpretation Comments PH ARTERIAL (BEAKER) (test code = 7.45 7.35-7.45 383) PCO2 ARTERIAL (BEAKER) (test code 43 mmHg 35-45 = 384) PO2 ARTERIAL (BEAKER) (test code = 63 mmHg 80-90 L 385) O2 SATURATION ARTERIAL (BEAKER) 92.5 % 96.0-97.0 L (test code = 386) HCO3 ARTERIAL (BEAKER) (test code 29 mmol/L 21-29 = 388) BASE EXCESS ARTERIAL (BEAKER) 4.6 mmol/L -2.0-3.0 H (test code = 387) PATIENT TEMPERATURE (BEAKER) (test 37.5 C code = 1818) FIO2 (BEAKER) (test code = 1819) 60.0 % [id number] 10:21:00 Test Item Value Reference Range Interpretation Comments PARTIAL THROMBOPLASTIN TIME 71.9 seconds 22.5-36.0 H (BEAKER) (test code = 760) CBC W/PLT COUNT & AUTO [id number] 07:30:00 Test Item Value Reference Range Interpretation Comments WHITE BLOOD CELL COUNT (BEAKER) 7.1 K/ L 3.5-10.5 (test code = 775) RED BLOOD CELL COUNT (BEAKER) 4.37 M/ L 4.63-6.08 L (test code = 761) HEMOGLOBIN (BEAKER) (test code = 13.2 GM/DL 13.7-17.5 L 410) HEMATOCRIT (BEAKER) (test code = 39.7 % 40.1-51.0 L 411) MEAN CORPUSCULAR VOLUME (BEAKER) 90.8 fL 79.0-92.2 (test code = 753) MEAN CORPUSCULAR HEMOGLOBIN 30.2 pg 25.7-32.2 (BEAKER) (test code = 751) MEAN CORPUSCULAR HEMOGLOBIN CONC 33.2 GM/DL 32.3-36.5 (BEAKER) (test code = 752) RED CELL DISTRIBUTION WIDTH 14.0 % 11.6-14.4 (BEAKER) (test code = 412) PLATELET COUNT (BEAKER) (test 236 K/CU MM 150-450 code = 756) MEAN PLATELET VOLUME (BEAKER) 9.5 fL 9.4-12.4 (test code = 754) NUCLEATED RED BLOOD CELLS 1 /100 WBC 0-0 H (BEAKER) (test code = 413) (CELLAVISION MANUAL DIFF)2019-09-21 07:30:00 Test Item Value Reference Range Interpretation Comments NEUTROPHILS - REL 70 % (CELLAVISION)(BEAKER) (test code = 2816) LYMPHOCYTES - REL 10 % (CELLAVISION)(BEAKER) (test code = 2817) MONOCYTES - REL 6 % (CELLAVISION)(BEAKER) (test code = 2818) EOSINOPHILS - REL 2 % (CELLAVISION)(BEAKER) (test code = 2819) METAMYELOCYTES - REL 2 % 0-0 H (CELLAVISION)(BEAKER) (test code = 2821) MYELOCYTES - REL 3 % 0-0 H (CELLAVISION)(BEAKER) (test code = 2822) PROMYELOCYTES - REL 1 % 0-0 H (CELLAVSION)(BEAKER) (test code = 2825) BANDS - REL (CELLAVISION)(BEAKER) 3 % 0-10 (test code = 2826) ATYPICAL LYMPHOCYTES - REL 2 % 0-0 H (CELLAVISION)(BEAKER) (test code = 2829) NEUTROPHILS - ABS 4.97 K/ul 1.78-5.38 (CELLAVISION)(BEAKER) (test code = 2830) LYMPHOCYTES - ABS 0.71 K/ul 1.32-3.57 L (CELLAVISION)(BEAKER) (test code = 2831) MONOCYTES - ABS 0.43 K/uL 0.30-0.82 (CELLAVISION)(BEAKER) (test code = 2832) EOSINOPHILS - ABS 0.14 K/uL 0.04-0.54 (CELLAVISION)(BEAKER) (test code = 2834) METAMYELOCYTES - ABS 0.14 K/uL 0.00-0.00 H (CELLAVISION)(BEAKER) (test code = 2836) MYELOCYTES-ABS 0.21 K/uL 0.00-0.00 H (CELLAVISION)(BEAKER) (test code = 2837) PROMYELOCYTES - ABS 0.07 K/uL 0.00-0.00 H (CELLAVISION)(BEAKER) (test code = 2838) BANDS - ABS (CELLAVISION)(BEAKER) 0.21 K/uL 0.00-0.80 (test code = 2840) ATYPICAL LYMPHOCYTES - ABS 0.14 K/uL 0.00-0.00 H (CELLAVISION)(BEAKER) (test code = 2858) TOTAL COUNTED (BEAKER) (test code = 100 1351) LARGE PLT(BEAKER) (test code = Present 2156) DOHLE BODIES (BEAKER) (test code = Present 359) POLYCHROMATOPHILLIC RBCS(BEAKER) 1+ few (test code = 478) ANISOCYTOSIS (BEAKER) (test code = 1+ few 961) MICROCYTES (BEAKER) (test code = 1+ few 965) MACROCYTES (BEAKER) (test code = 1+ few 964) POIKILOCYTES (BEAKER) (test code = 1+ few 966) SCHISTOCYTES (BEAKER) (test code = 1+ few 765) OVALOCYTES (BEAKER) (test code = 1+ few 477) KELLIE CELLS (BEAKER) (test code = 1+ few 474) ARTIFACT (CELLAVISION)(BEAKER) Present (test code = 3432) PLATELET CONCENTRATION Adequate (CELLAVISION)(BEAKER) (test code = 3438) Shoe Laster ID - Mary Ann comments: Slide comments:POCT-GLUCOSE [id number] 06:29:00 Test Item Value Reference Range Interpretation Comments POC-GLUCOSE METER 229 mg/dL 70-110 H : Will Rep eat Test: (BEAKER) (test code = TESTED AT [facility] 6720 1538) [facility], [address]: Shoe Laster/Techni lavinia ID = [id number] for [facility] THROMBOELASTOGRAPH (TEG)2019-09-21 04:31:00 Test Item Value Reference Range Interpretation Comments TEG ACTIVATED CLOTTING TIME 17.3 minutes 4.0-7.0 H (BEAKER) (test code = 1407) TEG FIBRINOGEN ACTIVITY (BEAKER) 42.6 degrees 61.0-73.0 L (test code = 1408) TEG PLT. AGGREGATION (BEAKER) 68.1 MM 55.0-65.0 H (test code = 1409) TGH ACTIVATED CLOTTING TIME 5.8 minutes 4.0-7.0 (BEAKER) (test code = 1411) TGH FIBRINOGEN ACTIVITY (BEAKER) 73.9 degrees 61.0-73.0 H (test code = 1412) TGH PLT. AGGREGATION (BEAKER) 73.6 MM 55.0-65.0 H (test code = 1413) [id number] 04:25:00 Test Item Value Reference Range Interpretation Comments PHOSPHORUS (BEAKER) (test code = 3.2 mg/dL 2.3-4.7 604) Shoe Laster ID - BRI [id number] 04:25:00 Test Item Value Reference Range Interpretation Comments MAGNESIUM (BEAKER) (test code = 1.9 mg/dL 1.6-2.6 627) Shoe Laster ID - BRI MCOMPREHENSIVE METABOLIC [id number] 04:25:00 Test Item Value Reference Range Interpretation Comments TOTAL PROTEIN 5.5 gm/dL 6.0-8.3 L (BEAKER) (test code = 770) ALBUMIN (BEAKER) 2.6 g/dL 3.5-5.0 L (test code = 1145) ALKALINE PHOSPHATASE 61 U/L 40-150 (BEAKER) (test code = 346) BILIRUBIN TOTAL 0.7 mg/dL 0.2-1.2 (BEAKER) (test code = 377) SODIUM (BEAKER) (test 142 meq/L 136-145 code = 381) POTASSIUM (BEAKER) 3.9 meq/L 3.5-5.1 (test code = 379) CHLORIDE (BEAKER) 107 meq/L 98-107 (test code = 382) CO2 (BEAKER) (test 29 meq/L 22-29 code = 355) BLOOD UREA NITROGEN 22 mg/dL 7-21 H (BEAKER) (test code = 354) CREATININE (BEAKER) 0.74 mg/dL 0.57-1.25 (test code = 358) GLUCOSE RANDOM 255 mg/dL 70-105 H (BEAKER) (test code = 652) CALCIUM (BEAKER) 8.1 mg/dL 8.4-10.2 L (test code = 697) AST (SGOT) (BEAKER) 205 U/L 5-34 H (test code = 353) ALT (SGPT) (BEAKER) 140 U/L 6-55 H (test code = 347) EGFR (BEAKER) (test 103 ESTIMATE D GFR IS code = 1092) mL/min/1.73 sq NOT ACCURA TE m CREATININE CLEARANCE IN PREDICTING GLOMERULAR FILTRATION RATE . ESTIMATED GFR I S NOT APPLICABLE FOR DIALYSIS PATIEN TS. Shoe Laster ID - BRI [id number] 03:53:00 Test Item Value Reference Range Interpretation Comments PARTIAL THROMBOPLASTIN TIME 63.9 seconds 22.5-36.0 H (BEAKER) (test code = 760) 6 hours after starting heparin infusion and as indicated per sliding scale CALCIUM, [id number] 03:40:00 Test Item Value Reference Range Interpretation Comments CALCIUM IONIZED (BEAKER) (test 1.10 mmol/L 1.12-1.27 L code = 698) PH, BLOOD (BEAKER) (test code = 7.45 1810) OXYGEN SATURATION, [id number] 03:39:00 Test Item Value Reference Range Interpretation Comments O2 SATURATION (MEASURED) (BEAKER) 92.6 % (test code = 1455) CENTRAL LINE ONLY Please draw from central venous line - do NOT draw from arterial linePOCT-GLUCOSE [id number] 00:38:00 Test Item Value Reference Range Interpretation Comments POC-GLUCOSE METER 258 mg/dL 70-110 H : TESTED A T [facility] 6720 (BEAKER) (test code = [facility], 1538) [id number]: Shoe Laster/Techni lavinia ID = [id number] for ME RSHA, MAEDOT BLOOD GAS, [id number] 00:36:00 Test Item Value Reference Range Interpretation Comments PH ARTERIAL (BEAKER) (test code = 7.45 7.35-7.45 383) PCO2 ARTERIAL (BEAKER) (test code 43 mmHg 35-45 = 384) PO2 ARTERIAL (BEAKER) (test code = 87 mmHg 80-90 385) O2 SATURATION ARTERIAL (BEAKER) 96.9 % 96.0-97.0 (test code = 386) HCO3 ARTERIAL (BEAKER) (test code 30 mmol/L 21-29 H = 388) BASE EXCESS ARTERIAL (BEAKER) 4.9 mmol/L -2.0-3.0 H (test code = 387) PATIENT TEMPERATURE (BEAKER) (test 37.0 C code = 1818) FIO2 (BEAKER) (test code = 1819) 70.0 % POCT-GLUCOSE [id number] 20:40:00 Test Item Value Reference Range Interpretation Comments POC-GLUCOSE METER 220 mg/dL 70-110 H : TESTED A T [facility] 6720 (BEAKER) (test code = [facility], 1538) [id number]: Shoe Laster/Techni lavinia ID = [id number] for ME RSHA, JESÚSEDOT [id number] 19:36:00 Test Item Value Reference Range Interpretation Comments PARTIAL THROMBOPLASTIN TIME 68.0 seconds 22.5-36.0 H (BEAKER) (test code = 760) BLOOD [id number] 19:00:00 Test Item Value Reference Range Interpretation Comments CULTURE (BEAKER) (test No growth in 5 days code = 1095) BLOOD [id number] 19:00:00 Test Item Value Reference Range Interpretation Comments CULTURE (BEAKER) (test No growth in 5 days code = 1095) BLOOD GAS, [id number] 18:41:00 Test Item Value Reference Range Interpretation Comments PH ARTERIAL (BEAKER) (test code = 7.48 7.35-7.45 H 383) PCO2 ARTERIAL (BEAKER) (test code 44 mmHg 35-45 = 384) PO2 ARTERIAL (BEAKER) (test code = 60 mmHg 80-90 L 385) O2 SATURATION ARTERIAL (BEAKER) 92.3 % 96.0-97.0 L (test code = 386) HCO3 ARTERIAL (BEAKER) (test code 32 mmol/L 21-29 H = 388) BASE EXCESS ARTERIAL (BEAKER) 7.4 mmol/L -2.0-3.0 H (test code = 387) PATIENT TEMPERATURE (BEAKER) (test 37.1 C code = 1818) FIO2 (BEAKER) (test code = 1819) 70.0 % POCT-GLUCOSE [id number] 18:17:00 Test Item Value Reference Range Interpretation Comments POC-GLUCOSE METER 228 mg/dL 70-110 H : TESTED A T [facility] 6720 (BEAKER) (test code = [facility], 1538) [id number]: Shoe Laster/Techni lavinia ID = [id number] for AM IN, JUICE BASIC METABOLIC [id number] 16:22:00 Test Item Value Reference Range Interpretation Comments SODIUM (BEAKER) 143 meq/L 136-145 (test code = 381) POTASSIUM (BEAKER) 4.0 meq/L 3.5-5.1 (test code = 379) CHLORIDE (BEAKER) 105 meq/L 98-107 (test code = 382) CO2 (BEAKER) (test 32 meq/L 22-29 H code = 355) BLOOD UREA NITROGEN 21 mg/dL 7-21 (BEAKER) (test code = 354) CREATININE (BEAKER) 0.82 mg/dL 0.57-1.25 (test code = 358) GLUCOSE RANDOM 277 mg/dL 70-105 H (BEAKER) (test code = 652) CALCIUM (BEAKER) 8.0 mg/dL 8.4-10.2 L (test code = 697) EGFR (BEAKER) (test 92 mL/min/1.73 ESTIMA COCO GFR IS code = 1092) sq m NOT ACCURATE CREATININE CLEARANCE IN PREDICTING GLOMERULAR FILTRATION RATE . ESTIMATED GFR I S NOT APPLICABLE FOR DIALYSIS PATIEN TS. Shoe Laster ID - [id number] 14:18:00 Test Item Value Reference Range Interpretation Comments PARTIAL THROMBOPLASTIN TIME 65.8 seconds 22.5-36.0 H (BEAKER) (test code = 760) BLOOD GAS, [id number] 13:01:00 Test Item Value Reference Range Interpretation Comments PH ARTERIAL (BEAKER) (test code = 7.44 7.35-7.45 383) PCO2 ARTERIAL (BEAKER) (test code 48 mmHg 35-45 H = 384) PO2 ARTERIAL (BEAKER) (test code = 75 mmHg 80-90 L 385) O2 SATURATION ARTERIAL (BEAKER) 95.1 % 96.0-97.0 L (test code = 386) HCO3 ARTERIAL (BEAKER) (test code 32 mmol/L 21-29 H = 388) BASE EXCESS ARTERIAL (BEAKER) 6.5 mmol/L -2.0-3.0 H (test code = 387) PATIENT TEMPERATURE (BEAKER) (test 37.2 C code = 1818) FIO2 (BEAKER) (test code = 1819) 70.0 % POCT-GLUCOSE [id number] 12:38:00 Test Item Value Reference Range Interpretation Comments POC-GLUCOSE METER 271 mg/dL 70-110 H : TESTED A T [facility] 6720 (BEAKER) (test code = K[facility] [place], 1538) [id number]: Shoe Laster/Techni lavinia ID = [id number] for [facility] MARIANN [id number] 11:22:00 Test Item Value Reference Range Interpretation Comments FERRITIN (BEAKER) (test code = 2208.69 ng/mL 5.00-275.00 H 361) Shoe Laster ID - PIAYA [id number] 10:43:00 Test Item Value Reference Range Interpretation Comments D-DIMER QUANTITATIVE (BEAKER) 3.89 MG/L FEU <0.50 H (test code = 671) Intended Use: The D-Dimer Assay can be used to aid in the diagnosis of Deep Vein Thrombosis (DVT) and Pulmonary Embolism Disease (PED).In patients with low pre- test probability, various studies concerning STA Liatest D-dimer test have reported that with a cutoff value of 0.50 MG/L FEU, the Negative Predictive Value (NPV) regarding the exclusion of thrombosis is within 95-100% range. PT/[id number] 10:42:00 Test Item Value Reference Range Interpretation Comments PROTIME (BEAKER) (test code = 14.8 seconds 11.9-14.2 H 759) INR (BEAKER) (test code = 370) 1.2 <=5.9 PARTIAL THROMBOPLASTIN TIME 58.2 seconds 22.5-36.0 H (BEAKER) (test code = 760) Effective 10/21/2018: PT Reference Range ChangeNew: 11.9-14.2 Previous: 11.7- 14.7RECOMMENDED COUMADIN/WARFARIN INR THERAPY RANGESSTANDARD DOSE: 2.0-3.0 Includes: PROPHYLAXIS for venous thrombosis, systemic embolization; TREATMENT for venous thrombosis and/or pulmonary embolus.HIGH RISK: Target INR is2.5-3.5 for patients wiht mechanical heart valves.[id number] 10:40:00 Test Item Value Reference Range Interpretation Comments PROCALCITONIN (BEAKER) (test code 0.21 ng/mL <0.05 H = 3036) SEPSIS RISK (ng/mL)Low: 0.05-0.50Intermediate: 0.51-2.00High: >=2.01LACTATE DEHYDROGENASE (LDH)2019-09-20 10:19:00 Test Item Value Reference Range Interpretation Comments LACTATE DEHYDROGENASE 620 U/L 125-220 H Specim en slightly (BEAKER) (test code = hemoly zed 635) Shoe Laster ID - NTPC-REACTIVE [id number] 10:11:00 Test Item Value Reference Range Interpretation Comments C-REACTIVE PROTEIN (BEAKER) (test 2.08 mg/dL 0.00-0.50 H code = 676) Shoe Laster ID - NTPMISCELLANEOUS LAB [id number] 07:51:00 Test Item Value Reference Range Interpretation Comments SCAN RESULT (test code = 5894346) CBC W/PLT COUNT & AUTO [id number] 07:39:00 Test Item Value Reference Range Interpretation Comments WHITE BLOOD CELL COUNT (BEAKER) 6.8 K/ L 3.5-10.5 (test code = 775) RED BLOOD CELL COUNT (BEAKER) 4.37 M/ L 4.63-6.08 L (test code = 761) HEMOGLOBIN (BEAKER) (test code = 13.0 GM/DL 13.7-17.5 L 410) HEMATOCRIT (BEAKER) (test code = 39.0 % 40.1-51.0 L 411) MEAN CORPUSCULAR VOLUME (BEAKER) 89.2 fL 79.0-92.2 (test code = 753) MEAN CORPUSCULAR HEMOGLOBIN 29.7 pg 25.7-32.2 (BEAKER) (test code = 751) MEAN CORPUSCULAR HEMOGLOBIN CONC 33.3 GM/DL 32.3-36.5 (BEAKER) (test code = 752) RED CELL DISTRIBUTION WIDTH 13.5 % 11.6-14.4 (BEAKER) (test code = 412) PLATELET COUNT (BEAKER) (test 265 K/CU MM 150-450 code = 756) MEAN PLATELET VOLUME (BEAKER) 10.3 fL 9.4-12.4 (test code = 754) NUCLEATED RED BLOOD CELLS 1 /100 WBC 0-0 H (BEAKER) (test code = 413) (CELLAVISION MANUAL DIFF)2019-09-20 07:39:00 Test Item Value Reference Range Interpretation Comments NEUTROPHILS - REL 59 % (CELLAVISION)(BEAKER) (test code = 2816) LYMPHOCYTES - REL 22 % (CELLAVISION)(BEAKER) (test code = 2817) MONOCYTES - REL 7 % (CELLAVISION)(BEAKER) (test code = 2818) EOSINOPHILS - REL 5 % (CELLAVISION)(BEAKER) (test code = 2819) METAMYELOCYTES - REL 1 % 0-0 H (CELLAVISION)(BEAKER) (test code = 2821) MYELOCYTES - REL 2 % 0-0 H (CELLAVISION)(BEAKER) (test code = 2822) BANDS - REL (CELLAVISION)(BEAKER) 3 % 0-10 (test code = 2826) ATYPICAL LYMPHOCYTES - REL 1 % 0-0 H (CELLAVISION)(BEAKER) (test code = 2829) NEUTROPHILS - ABS 4.01 K/ul 1.78-5.38 (CELLAVISION)(BEAKER) (test code = 2830) LYMPHOCYTES - ABS 1.50 K/ul 1.32-3.57 (CELLAVISION)(BEAKER) (test code = 2831) MONOCYTES - ABS 0.48 K/uL 0.30-0.82 (CELLAVISION)(BEAKER) (test code = 2832) EOSINOPHILS - ABS 0.34 K/uL 0.04-0.54 (CELLAVISION)(BEAKER) (test code = 2834) METAMYELOCYTES - ABS 0.07 K/uL 0.00-0.00 H (CELLAVISION)(BEAKER) (test code = 2836) MYELOCYTES-ABS 0.14 K/uL 0.00-0.00 H (CELLAVISION)(BEAKER) (test code = 2837) BANDS - ABS (CELLAVISION)(BEAKER) 0.20 K/uL 0.00-0.80 (test code = 2840) ATYPICAL LYMPHOCYTES - ABS 0.07 K/uL 0.00-0.00 H (CELLAVISION)(BEAKER) (test code = 3148) TOTAL COUNTED (BEAKER) (test code = 100 1351) WBC MORPHOLOGY (BEAKER) (test code Normal = 487) GIANT PLATELETS (BEAKER) (test code Present = 313) LARGE PLT(BEAKER) (test code = Present 2156) POLYCHROMATOPHILLIC RBCS(BEAKER) 1+ few (test code = 478) POIKILOCYTES (BEAKER) (test code = 1+ few 966) OVALOCYTES (BEAKER) (test code = 1+ few 477) KELLIE CELLS (BEAKER) (test code = 1+ few 474) ARTIFACT (CELLAVISION)(BEAKER) Present (test code = 3432) PLATELET CONCENTRATION Adequate (CELLAVISION)(BEAKER) (test code = 3438) Shoe Laster ID - Erin Moscoso comments: Slide comments:COMPREHENSIVE METABOLIC [id number] 05:50:00 Test Item Value Reference Range Interpretation Comments TOTAL PROTEIN 5.6 gm/dL 6.0-8.3 L (BEAKER) (test code = 770) ALBUMIN (BEAKER) 2.6 g/dL 3.5-5.0 L (test code = 1145) ALKALINE PHOSPHATASE 64 U/L 40-150 (BEAKER) (test code = 346) BILIRUBIN TOTAL 0.8 mg/dL 0.2-1.2 (BEAKER) (test code = 377) SODIUM (BEAKER) (test 143 meq/L 136-145 code = 381) POTASSIUM (BEAKER) 3.7 meq/L 3.5-5.1 (test code = 379) CHLORIDE (BEAKER) 104 meq/L 98-107 (test code = 382) CO2 (BEAKER) (test 32 meq/L 22-29 H code = 355) BLOOD UREA NITROGEN 23 mg/dL 7-21 H (BEAKER) (test code = 354) CREATININE (BEAKER) 0.91 mg/dL 0.57-1.25 (test code = 358) GLUCOSE RANDOM 294 mg/dL 70-105 H (BEAKER) (test code = 652) CALCIUM (BEAKER) 7.9 mg/dL 8.4-10.2 L (test code = 697) AST (SGOT) (BEAKER) 158 U/L 5-34 H (test code = 353) ALT (SGPT) (BEAKER) 96 U/L 6-55 H (test code = 347) EGFR (BEAKER) (test 81 mL/min/1.73 ESTIMA COCO GFR IS code = 1092) sq m NOT ACCURATE CREATININE CLEARANCE IN PREDICTING GLOMERULAR FILTRATION RATE . ESTIMATED GFR I S NOT APPLICABLE FOR DIALYSIS PATIEN TS. Shoe Laster ID Osmani DAWKINS LPOCT-GLUCOSE [id number] 05:46:00 Test Item Value Reference Range Interpretation Comments POC-GLUCOSE METER 233 mg/dL 70-110 H : TESTED A T [facility] 6720 (BEAKER) (test code = [facility] [place], 1538) [id number]: Shoe Laster/Techni lavinia ID = [id number] for TO LUIS SOLORIO [id number] 05:46:00 Test Item Value Reference Range Interpretation Comments PHOSPHORUS (BEAKER) (test code = 2.5 mg/dL 2.3-4.7 604) Shoe Laster GLORIA DAWKINS [id number] 05:46:00 Test Item Value Reference Range Interpretation Comments MAGNESIUM (BEAKER) (test code = 1.9 mg/dL 1.6-2.6 627) Shoe Laster GLORIA DAWKINS [id number] 05:11:00 Test Item Value Reference Range Interpretation Comments PARTIAL THROMBOPLASTIN TIME 63.7 seconds 22.5-36.0 H (BEAKER) (test code = 760) 6 hours after starting heparin infusion and as indicated per sliding scaleOXYGEN SATURATION, [id number] 05:03:00 Test Item Value Reference Range Interpretation Comments O2 SATURATION (MEASURED) (BEAKER) 82.3 % (test code = 1455) CENTRAL LINE ONLY Please draw from central venous line - do NOT draw from arterial lineCALCIUM, [id number] 05:02:00 Test Item Value Reference Range Interpretation Comments CALCIUM IONIZED (BEAKER) (test 1.02 mmol/L 1.12-1.27 L code = 698) PH, BLOOD (BEAKER) (test code = 7.45 1810) BLOOD GAS, [id number] 04:51:00 Test Item Value Reference Range Interpretation Comments PH ARTERIAL (BEAKER) (test code = 7.43 7.35-7.45 383) PCO2 ARTERIAL (BEAKER) (test code 50 mmHg 35-45 H = 384) PO2 ARTERIAL (BEAKER) (test code = 111 mmHg 80-90 H 385) O2 SATURATION ARTERIAL (BEAKER) 98.1 % 96.0-97.0 H (test code = 386) HCO3 ARTERIAL (BEAKER) (test code 33 mmol/L 21-29 H = 388) BASE EXCESS ARTERIAL (BEAKER) 7.1 mmol/L -2.0-3.0 H (test code = 387) PATIENT TEMPERATURE (BEAKER) (test 37.2 C code = 1818) FIO2 (BEAKER) (test code = 1819) 70.0 % [id number] 00:13:00 Test Item Value Reference Range Interpretation Comments PARTIAL THROMBOPLASTIN TIME 62.4 seconds 22.5-36.0 H (BEAKER) (test code = 760) BLOOD GAS, [id number] 23:50:00 Test Item Value Reference Range Interpretation Comments PH ARTERIAL (BEAKER) (test code = 7.47 7.35-7.45 H 383) PCO2 ARTERIAL (BEAKER) (test code 47 mmHg 35-45 H = 384) PO2 ARTERIAL (BEAKER) (test code = 166 mmHg 80-90 H 385) O2 SATURATION ARTERIAL (BEAKER) 99.2 % 96.0-97.0 H (test code = 386) HCO3 ARTERIAL (BEAKER) (test code 33 mmol/L 21-29 H = 388) BASE EXCESS ARTERIAL (BEAKER) 8.3 mmol/L -2.0-3.0 H (test code = 387) PATIENT TEMPERATURE (BEAKER) (test 37.2 C code = 1818) FIO2 (BEAKER) (test code = 1819) 70.0 % POCT-GLUCOSE [id number] 23:33:00 Test Item Value Reference Range Interpretation Comments POC-GLUCOSE METER 311 mg/dL 70-110 H : TESTED A T [facility] 6720 (BEAKER) (test code = [facility], 1538) [id number]: Shoe Laster/Techni lavinia ID = [id number] for TO LUIS SOLORIO POCT-GLUCOSE [id number] 20:48:00 Test Item Value Reference Range Interpretation Comments POC-GLUCOSE METER 324 mg/dL 70-110 H : TESTED A T [facility] 6720 (BEAKER) (test code = [facility], 1538) [address]: Shoe Laster/Techni lavinia ID = [id number] for TO LUIS SOLORIO [id number] 17:41:00 Test Item Value Reference Range Interpretation Comments PARTIAL THROMBOPLASTIN TIME 65.5 seconds 22.5-36.0 H (BEAKER) (test code = 760) BASIC METABOLIC [id number] 17:20:00 Test Item Value Reference Range Interpretation Comments SODIUM (BEAKER) 143 meq/L 136-145 (test code = 381) POTASSIUM (BEAKER) 3.9 meq/L 3.5-5.1 (test code = 379) CHLORIDE (BEAKER) 104 meq/L 98-107 (test code = 382) CO2 (BEAKER) (test 33 meq/L 22-29 H code = 355) BLOOD UREA NITROGEN 26 mg/dL 7-21 H (BEAKER) (test code = 354) CREATININE (BEAKER) 0.97 mg/dL 0.57-1.25 (test code = 358) GLUCOSE RANDOM 294 mg/dL 70-105 H (BEAKER) (test code = 652) CALCIUM (BEAKER) 7.7 mg/dL 8.4-10.2 L (test code = 697) EGFR (BEAKER) (test 76 mL/min/1.73 ESTIMA COCO GFR IS code = 1092) sq m NOT ACCURATE CREATININE CLEARANCE IN PREDICTING GLOMERULAR FILTRATION RATE . ESTIMATED GFR I S NOT APPLICABLE FOR DIALYSIS PATIEN TS. Shoe Laster ID - HANSA CPOCT-GLUCOSE [id number] 17:08:00 Test Item Value Reference Range Interpretation Comments POC-GLUCOSE METER 300 mg/dL 70-110 H : TESTED A T [facility] 6720 (BEAKER) (test code = [facility], 153) [id number]: Shoe Laster/Techni lavinia ID = [id number] for JOY CRUZ BLOOD GAS, [id number] 17:07:00 Test Item Value Reference Range Interpretation Comments PH ARTERIAL (BEAKER) (test code = 7.40 7.35-7.45 383) PCO2 ARTERIAL (BEAKER) (test code 56 mmHg 35-45 H = 384) PO2 ARTERIAL (BEAKER) (test code = 76 mmHg 80-90 L 385) O2 SATURATION ARTERIAL (BEAKER) 94.6 % 96.0-97.0 L (test code = 386) HCO3 ARTERIAL (BEAKER) (test code 33 mmol/L 21-29 H = 388) BASE EXCESS ARTERIAL (BEAKER) 7.0 mmol/L -2.0-3.0 H (test code = 387) PATIENT TEMPERATURE (BEAKER) (test 37.5 C code = 1818) FIO2 (BEAKER) (test code = 1819) 70.0 % POCT-GLUCOSE [id number] 13:03:00 Test Item Value Reference Range Interpretation Comments POC-GLUCOSE METER 253 mg/dL 70-110 H : TESTED A T [facility] 6720 (BEAKER) (test code = [facility] [employer] [facility], 153) [id number]: Shoe Laster/Techni lavinia ID = [id number] for FLAKITA BELTRAN BLOOD GAS, [id number] 13:01:00 Test Item Value Reference Range Interpretation Comments PH ARTERIAL (BEAKER) (test code = 7.44 7.35-7.45 383) PCO2 ARTERIAL (BEAKER) (test code 48 mmHg 35-45 H = 384) PO2 ARTERIAL (BEAKER) (test code = 76 mmHg 80-90 L 385) O2 SATURATION ARTERIAL (BEAKER) 95.3 % 96.0-97.0 L (test code = 386) HCO3 ARTERIAL (BEAKER) (test code 32 mmol/L 21-29 H = 388) BASE EXCESS ARTERIAL (BEAKER) 6.7 mmol/L -2.0-3.0 H (test code = 387) PATIENT TEMPERATURE (BEAKER) (test 37.5 C code = 1818) FIO2 (BEAKER) (test code = 1819) 70.0 % [id number] 10:37:00 Test Item Value Reference Range Interpretation Comments PARTIAL THROMBOPLASTIN TIME 57.3 seconds 22.5-36.0 H (BEAKER) (test code = 760) BLOOD GAS, [id number] 07:12:00 Test Item Value Reference Range Interpretation Comments PH ARTERIAL (BEAKER) (test code = 7.44 7.35-7.45 383) PCO2 ARTERIAL (BEAKER) (test code 50 mmHg 35-45 H = 384) PO2 ARTERIAL (BEAKER) (test code = 109 mmHg 80-90 H 385) O2 SATURATION ARTERIAL (BEAKER) 98.0 % 96.0-97.0 H (test code = 386) HCO3 ARTERIAL (BEAKER) (test code 33 mmol/L 21-29 H = 388) BASE EXCESS ARTERIAL (BEAKER) 7.3 mmol/L -2.0-3.0 H (test code = 387) PATIENT TEMPERATURE (BEAKER) (test 37.2 C code = 1818) FIO2 (BEAKER) (test code = 1819) 70.0 % POCT-GLUCOSE [id number] 06:15:00 Test Item Value Reference Range Interpretation Comments POC-GLUCOSE METER 273 mg/dL 70-110 H : TESTED A T [facility] 6720 (BEAKER) (test code = [facility], 1538) [id number]: Shoe Laster/Techni lavinia ID = [id number] for Senait Osuna THROMBOELASTOGRAPH (TEG)2019-09-19 05:41:00 Test Item Value Reference Range Interpretation Comments TEG ACTIVATED CLOTTING TIME 8.2 minutes 4.0-7.0 H (BEAKER) (test code = 1407) TEG FIBRINOGEN ACTIVITY (BEAKER) 63.5 degrees 61.0-73.0 (test code = 1408) TEG PLT. AGGREGATION (BEAKER) 67.2 MM 55.0-65.0 H (test code = 1409) TEG FIBRINOLYSIS (BEAKER) (test 10.2 % 0.0-5.0 H code = 1410) TGH ACTIVATED CLOTTING TIME 7.4 minutes 4.0-7.0 H (BEAKER) (test code = 1411) TGH FIBRINOGEN ACTIVITY (BEAKER) 68.5 degrees 61.0-73.0 (test code = 1412) TGH PLT. AGGREGATION (BEAKER) 70.4 MM 55.0-65.0 H (test code = 1413) TGH FIBRINOLYSIS (BEAKER) (test 11.9 % 0.0-5.0 H code = 1414) CALCIUM, [id number] 05:30:00 Test Item Value Reference Range Interpretation Comments CALCIUM IONIZED (BEAKER) (test 1.04 mmol/L 1.12-1.27 L code = 698) PH, BLOOD (BEAKER) (test code = 7.38 1810) RAD, CHEST, 1 VIEW, NON [id number] 04:44:00Reason for exam:->COVID pneumonia w/ pulmonary edemaFINAL REPORT RAD, CHEST, 1 VIEW, NON DEPT INDICATION: COVID pneumonia w/ pulmonary edema COMPARISON: Prior day's exam FINDINGS: Portable frontal view of the chest. IMPRESSION:Support Lines: No significant change. Lungs and pleura: Airspace and pleural opacities are similar. No pneumothorax.Heart and mediastinum: Stable contours. Additional findings: None. Signed: Brett Goldbergort Verified Date/Time: 09/19/2019 04:44:42 [id number] 04:42:00 Test Item Value Reference Range Interpretation Comments PARTIAL THROMBOPLASTIN TIME 70.5 seconds 22.5-36.0 H (BEAKER) (test code = 760) 6 hours after starting heparin infusion and as indicated per sliding scale COMPREHENSIVE METABOLIC [id number] 04:17:00 Test Item Value Reference Range Interpretation Comments TOTAL PROTEIN 5.6 gm/dL 6.0-8.3 L (BEAKER) (test code = 770) ALBUMIN (BEAKER) 2.6 g/dL 3.5-5.0 L (test code = 1145) ALKALINE PHOSPHATASE 59 U/L 40-150 (BEAKER) (test code = 346) BILIRUBIN TOTAL 0.8 mg/dL 0.2-1.2 (BEAKER) (test code = 377) SODIUM (BEAKER) (test 140 meq/L 136-145 code = 381) POTASSIUM (BEAKER) 3.8 meq/L 3.5-5.1 (test code = 379) CHLORIDE (BEAKER) 105 meq/L 98-107 (test code = 382) CO2 (BEAKER) (test 30 meq/L 22-29 H code = 355) BLOOD UREA NITROGEN 26 mg/dL 7-21 H (BEAKER) (test code = 354) CREATININE (BEAKER) 1.05 mg/dL 0.57-1.25 (test code = 358) GLUCOSE RANDOM 286 mg/dL 70-105 H (BEAKER) (test code = 652) CALCIUM (BEAKER) 7.8 mg/dL 8.4-10.2 L (test code = 697) AST (SGOT) (BEAKER) 74 U/L 5-34 H (test code = 353) ALT (SGPT) (BEAKER) 45 U/L 6-55 (test code = 347) EGFR (BEAKER) (test 69 mL/min/1.73 ESTIMA COCO GFR IS code = 1092) sq m NOT ACCURATE CREATININE CLEARANCE IN PREDICTING GLOMERULAR FILTRATION RATE . ESTIMATED GFR I S NOT APPLICABLE FOR DIALYSIS PATIEN TS. Shoe Laster ID - MARIZA [id number] 03:56:00 Test Item Value Reference Range Interpretation Comments PHOSPHORUS (BEAKER) (test code = 2.3 mg/dL 2.3-4.7 604) Shoe Laster ID - MARIZA [id number] 03:56:00 Test Item Value Reference Range Interpretation Comments MAGNESIUM (BEAKER) (test code = 2.0 mg/dL 1.6-2.6 627) Shoe Laster ID - MARIZA LCBC W/PLT COUNT & AUTO [id number] 03:32:00 Test Item Value Reference Range Interpretation Comments WHITE BLOOD CELL COUNT (BEAKER) 5.6 K/ L 3.5-10.5 (test code = 775) RED BLOOD CELL COUNT (BEAKER) 4.53 M/ L 4.63-6.08 L (test code = 761) HEMOGLOBIN (BEAKER) (test code = 13.1 GM/DL 13.7-17.5 L 410) HEMATOCRIT (BEAKER) (test code = 39.8 % 40.1-51.0 L 411) MEAN CORPUSCULAR VOLUME (BEAKER) 87.9 fL 79.0-92.2 (test code = 753) MEAN CORPUSCULAR HEMOGLOBIN 28.9 pg 25.7-32.2 (BEAKER) (test code = 751) MEAN CORPUSCULAR HEMOGLOBIN CONC 32.9 GM/DL 32.3-36.5 (BEAKER) (test code = 752) RED CELL DISTRIBUTION WIDTH 13.7 % 11.6-14.4 (BEAKER) (test code = 412) PLATELET COUNT (BEAKER) (test 305 K/CU MM 150-450 code = 756) MEAN PLATELET VOLUME (BEAKER) 9.4 fL 9.4-12.4 (test code = 754) NUCLEATED RED BLOOD CELLS 0 /100 WBC 0-0 (BEAKER) (test code = 413) NEUTROPHILS RELATIVE PERCENT 69 % (BEAKER) (test code = 429) LYMPHOCYTES RELATIVE PERCENT 19 % (BEAKER) (test code = 430) MONOCYTES RELATIVE PERCENT 5 % (BEAKER) (test code = 431) EOSINOPHILS RELATIVE PERCENT 5 % (BEAKER) (test code = 432) BASOPHILS RELATIVE PERCENT 0 % (BEAKER) (test code = 437) NEUTROPHILS ABSOLUTE COUNT 3.83 K/ L 1.78-5.38 (BEAKER) (test code = 670) LYMPHOCYTES ABSOLUTE COUNT 1.07 K/ L 1.32-3.57 L (BEAKER) (test code = 414) MONOCYTES ABSOLUTE COUNT (BEAKER) 0.27 K/ L 0.30-0.82 L (test code = 415) EOSINOPHILS ABSOLUTE COUNT 0.29 K/ L 0.04-0.54 (BEAKER) (test code = 416) BASOPHILS ABSOLUTE COUNT (BEAKER) 0.02 K/ L 0.01-0.08 (test code = 417) IMMATURE GRANULOCYTES-RELATIVE 2 % 0-1 H PERCENT (BEAKER) (test code = 2801) OXYGEN SATURATION, [id number] 03:26:00 Test Item Value Reference Range Interpretation Comments O2 SATURATION (MEASURED) (BEAKER) 98.0 % (test code = 1455) Please draw from central venous line - NOT arterial lineBLOOD GAS, ARTERIAL 2019-09-19 00:27:00 Test Item Value Reference Range Interpretation Comments PH ARTERIAL (BEAKER) (test code = 7.41 7.35-7.45 383) PCO2 ARTERIAL (BEAKER) (test code 50 mmHg 35-45 H = 384) PO2 ARTERIAL (BEAKER) (test code = 111 mmHg 80-90 H 385) O2 SATURATION ARTERIAL (BEAKER) 98.0 % 96.0-97.0 H (test code = 386) HCO3 ARTERIAL (BEAKER) (test code 31 mmol/L 21-29 H = 388) BASE EXCESS ARTERIAL (BEAKER) 5.6 mmol/L -2.0-3.0 H (test code = 387) PATIENT TEMPERATURE (BEAKER) (test 37.2 C code = 1818) FIO2 (BEAKER) (test code = 1819) 60.0 % POCT-GLUCOSE [id number] 00:08:00 Test Item Value Reference Range Interpretation Comments POC-GLUCOSE METER 277 mg/dL 70-110 H : [facility] (test code = [facility] [place], 1538) [id number]: Shoe Laster/Techni lavinia ID = [id number] for JAS RAMON CBC W/PLT COUNT & AUTO [id number] 22:02:00 Test Item Value Reference Range Interpretation Comments WHITE BLOOD CELL COUNT (BEAKER) 5.2 K/ L 3.5-10.5 (test code = 775) RED BLOOD CELL COUNT (BEAKER) 4.37 M/ L 4.63-6.08 L (test code = 761) HEMOGLOBIN (BEAKER) (test code = 12.9 GM/DL 13.7-17.5 L 410) HEMATOCRIT (BEAKER) (test code = 39.2 % 40.1-51.0 L 411) MEAN CORPUSCULAR VOLUME (BEAKER) 89.7 fL 79.0-92.2 (test code = 753) MEAN CORPUSCULAR HEMOGLOBIN 29.5 pg 25.7-32.2 (BEAKER) (test code = 751) MEAN CORPUSCULAR HEMOGLOBIN CONC 32.9 GM/DL 32.3-36.5 (BEAKER) (test code = 752) RED CELL DISTRIBUTION WIDTH 13.8 % 11.6-14.4 (BEAKER) (test code = 412) PLATELET COUNT (BEAKER) (test 250 K/CU MM 150-450 code = 756) MEAN PLATELET VOLUME (BEAKER) 9.6 fL 9.4-12.4 (test code = 754) NUCLEATED RED BLOOD CELLS 0 /100 WBC 0-0 (BEAKER) (test code = 413) POCT-GLUCOSE [id number] 21:39:00 Test Item Value Reference Range Interpretation Comments POC-GLUCOSE METER 169 mg/dL 70-110 H : TESTED A T [facility] 6720 (BEAKER) (test code = [facility] [place], 1538) [address]: Shoe Laster/Techni lavinia ID = [id number] for ANN MARIE DECKER [id number] 20:36:00 Test Item Value Reference Range Interpretation Comments PARTIAL THROMBOPLASTIN TIME 60.4 seconds 22.5-36.0 H (BEAKER) (test code = 760) [id number] 19:24:00 Test Item Value Reference Range Interpretation Comments MAGNESIUM (BEAKER) (test code = 2.1 mg/dL 1.6-2.6 627) Shoe Laster ID - HANSA CTSH/FREE T4 IF [id number] 18:24:00 Test Item Value Reference Range Interpretation Comments THYROID STIMULATING HORMONE 1.019 uIU/mL 0.350-4.940 (BEAKER) (test code = 772) Shoe Laster ID - HANSA CBASIC METABOLIC [id number] 17:53:00 Test Item Value Reference Range Interpretation Comments SODIUM (BEAKER) 145 meq/L 136-145 (test code = 381) POTASSIUM (BEAKER) 3.8 meq/L 3.5-5.1 (test code = 379) CHLORIDE (BEAKER) 105 meq/L 98-107 (test code = 382) CO2 (BEAKER) (test 34 meq/L 22-29 H code = 355) BLOOD UREA NITROGEN 30 mg/dL 7-21 H (BEAKER) (test code = 354) CREATININE (BEAKER) 1.14 mg/dL 0.57-1.25 (test code = 358) GLUCOSE RANDOM 244 mg/dL 70-105 H (BEAKER) (test code = 652) CALCIUM (BEAKER) 7.7 mg/dL 8.4-10.2 L (test code = 697) EGFR (BEAKER) (test 63 mL/min/1.73 ESTIMA COCO GFR IS code = 1092) sq m NOT ACCURATE CREATININE CLEARANCE IN PREDICTING GLOMERULAR FILTRATION RATE . ESTIMATED GFR I S NOT APPLICABLE FOR DIALYSIS PATIEN TS. Shoe Laster ID - HANSA CCALCIUM, [id number] 17:34:00 Test Item Value Reference Range Interpretation Comments CALCIUM IONIZED (BEAKER) (test 1.08 mmol/L 1.12-1.27 L code = 698) PH, BLOOD (BEAKER) (test code = 7.42 1810) BLOOD GAS, [id number] 17:34:00 Test Item Value Reference Range Interpretation Comments PH ARTERIAL (BEAKER) (test code = 7.41 7.35-7.45 383) PCO2 ARTERIAL (BEAKER) (test code 54 mmHg 35-45 H = 384) PO2 ARTERIAL (BEAKER) (test code = 69 mmHg 80-90 L 385) O2 SATURATION ARTERIAL (BEAKER) 93.4 % 96.0-97.0 L (test code = 386) HCO3 ARTERIAL (BEAKER) (test code 33 mmol/L 21-29 H = 388) BASE EXCESS ARTERIAL (BEAKER) 7.1 mmol/L -2.0-3.0 H (test code = 387) PATIENT TEMPERATURE (BEAKER) (test 37.5 C code = 1818) FIO2 (BEAKER) (test code = 1819) 60.0 % [id number] 17:32:00 Test Item Value Reference Range Interpretation Comments MAGNESIUM (BEAKER) (test code = 2.1 mg/dL 1.6-2.6 627) Shoe Laster ID - HANSA CPOCT-GLUCOSE [id number] 17:29:00 Test Item Value Reference Range Interpretation Comments POC-GLUCOSE METER 225 mg/dL 70-110 H : TESTED A T [facility] 6720 (BEAKER) (test code = KVNG Wolfe [facility], 1538) [address]: Shoe Laster/Techni lavinia ID = [id number] for DELPHINE SINGH CREATINE KINASE (CK)2019-09-18 13:21:00 Test Item Value Reference Range Interpretation Comments CREATINE KINASE TOTAL (BEAKER) (test 262 U/L 29-200 H code = 380) Shoe Laster ID - HANSA CHEMOGLOBIN [id number] 13:15:00 Test Item Value Reference Range Interpretation Comments HEMOGLOBIN A1C (BEAKER) (test code = 7.8 % 4.3-6.1 H 368) URINALYSIS W/ REFLEX URINE [id number] 13:00:00 Test Item Value Reference Range Interpretation Comments COLOR (BEAKER) (test code = 470) Yellow CLARITY (BEAKER) (test code = 469) Clear SPECIFIC GRAVITY UA (BEAKER) (test 1.024 1.001-1.035 code = 468) PH UA (BEAKER) (test code = 467) 6.0 5.0-8.0 PROTEIN UA (BEAKER) (test code = 10 mg/dL Negative A 464) GLUCOSE UA (BEAKER) (test code = Negative Negative 365) KETONES UA (BEAKER) (test code = Negative Negative 371) BILIRUBIN UA (BEAKER) (test code = Negative Negative 462) BLOOD UA (BEAKER) (test code = 461) Negative Negative NITRITE UA (BEAKER) (test code = Negative Negative 465) LEUKOCYTE ESTERASE UA (BEAKER) Negative Negative (test code = 466) UROBILINOGEN UA (BEAKER) (test code 0.2 mg/dL 0.2-1.0 = 463) RBC UA (BEAKER) (test code = 519) 8 /HPF WBC UA (BEAKER) (test code = 520) 0 /HPF HYALINE CASTS (BEAKER) (test code = 3 /LPF 514) SOURCE(BEAKER) (test code = 2795) Shoe Laster ID - [auto]Shoe Laster ID - techPOCT-GLUCOSE [id number] 12:38:00 Test Item Value Reference Range Interpretation Comments POC-GLUCOSE METER 204 mg/dL 70-110 H : Notified RN/MD: (BEAKER) (test code = TESTED AT [place] [id number] 1537) [facility], [address]: Shoe Laster/Techni lavinia ID = [id number] for LULY SANCHEZ BLOOD GAS, [id number] 12:27:00 Test Item Value Reference Range Interpretation Comments PH ARTERIAL (BEAKER) (test code = 7.42 7.35-7.45 383) PCO2 ARTERIAL (BEAKER) (test code 52 mmHg 35-45 H = 384) PO2 ARTERIAL (BEAKER) (test code = 61 mmHg 80-90 L 385) O2 SATURATION ARTERIAL (BEAKER) 90.7 % 96.0-97.0 L (test code = 386) HCO3 ARTERIAL (BEAKER) (test code 33 mmol/L 21-29 H = 388) BASE EXCESS ARTERIAL (BEAKER) 6.9 mmol/L -2.0-3.0 H (test code = 387) PATIENT TEMPERATURE (BEAKER) (test 37.5 C code = 1818) FIO2 (BEAKER) (test code = 1819) 50.0 % [id number] 10:20:00 Test Item Value Reference Range Interpretation Comments FERRITIN (BEAKER) (test code = 2093.57 ng/mL 5.00-275.00 H 361) Shoe Laster ID - HANSA CCBC W/PLT COUNT & AUTO [id number] 09:33:00 Test Item Value Reference Range Interpretation Comments WHITE BLOOD CELL COUNT (BEAKER) 5.2 K/ L 3.5-10.5 (test code = 775) RED BLOOD CELL COUNT (BEAKER) 4.45 M/ L 4.63-6.08 L (test code = 761) HEMOGLOBIN (BEAKER) (test code = 13.3 GM/DL 13.7-17.5 L 410) HEMATOCRIT (BEAKER) (test code = 39.1 % 40.1-51.0 L 411) MEAN CORPUSCULAR VOLUME (BEAKER) 87.9 fL 79.0-92.2 (test code = 753) MEAN CORPUSCULAR HEMOGLOBIN 29.9 pg 25.7-32.2 (BEAKER) (test code = 751) MEAN CORPUSCULAR HEMOGLOBIN CONC 34.0 GM/DL 32.3-36.5 (BEAKER) (test code = 752) RED CELL DISTRIBUTION WIDTH 13.6 % 11.6-14.4 (BEAKER) (test code = 412) PLATELET COUNT (BEAKER) (test 231 K/CU MM 150-450 code = 756) MEAN PLATELET VOLUME (BEAKER) 9.6 fL 9.4-12.4 (test code = 754) NUCLEATED RED BLOOD CELLS 0 /100 WBC 0-0 (BEAKER) (test code = 413) (CELLAVISION MANUAL DIFF)2019-09-18 09:33:00 Test Item Value Reference Range Interpretation Comments NEUTROPHILS - REL 83 % (CELLAVISION)(BEAKER) (test code = 2816) LYMPHOCYTES - REL 11 % (CELLAVISION)(BEAKER) (test code = 2817) MONOCYTES - REL 5 % (CELLAVISION)(BEAKER) (test code = 2818) EOSINOPHILS - REL 1 % (CELLAVISION)(BEAKER) (test code = 2819) NEUTROPHILS - ABS 4.32 K/ul 1.78-5.38 (CELLAVISION)(BEAKER) (test code = 2830) LYMPHOCYTES - ABS 0.57 K/ul 1.32-3.57 L (CELLAVISION)(BEAKER) (test code = 2831) MONOCYTES - ABS 0.26 K/uL 0.30-0.82 L (CELLAVISION)(BEAKER) (test code = 2832) EOSINOPHILS - ABS 0.05 K/uL 0.04-0.54 (CELLAVISION)(BEAKER) (test code = 2834) TOTAL COUNTED (BEAKER) (test code 100 = 1351) WBC MORPHOLOGY (BEAKER) (test Normal code = 487) PLT MORPHOLOGY (BEAKER) (test Normal code = 486) KELLIE CELLS (BEAKER) (test code = 2+ moderate 474) ARTIFACT (CELLAVISION)(BEAKER) Present (test code = 3432) PLATELET CONCENTRATION Adequate (CELLAVISION)(BEAKER) (test code = 3438) Shoe Laster ID - Elvira Domínguez comments: Slide comments:[id number] 09:26:00 Test Item Value Reference Range Interpretation Comments PROCALCITONIN (BEAKER) (test code 0.35 ng/mL <0.05 H = 3036) SEPSIS RISK (ng/mL)Low: 0.05-0.50Intermediate: 0.51-2.00High: >=[id number] 09:12:00 Test Item Value Reference Range Interpretation Comments D-DIMER QUANTITATIVE (BEAKER) 4.78 MG/L FEU <0.50 H (test code = 671) Intended Use: The D-Dimer Assay can be used to aid in the diagnosis of Deep Vein Thrombosis (DVT) and Pulmonary Embolism Disease (PED).In patients with low pre- test probability, various studies concerning STA Liatest D-dimer test have reported that with a cutoff value of 0.50 MG/L FEU, the Negative Predictive Value (NPV) regarding the exclusion of thrombosis is within 95-100% range. LACTATE DEHYDROGENASE (LDH)2019-09-18 09:11:00 Test Item Value Reference Range Interpretation Comments LACTATE DEHYDROGENASE (BEAKER) (test 568 U/L 125-220 H code = 635) Shoe Laster ID - HANSA CC-REACTIVE [id number] 09:11:00 Test Item Value Reference Range Interpretation Comments C-REACTIVE PROTEIN (BEAKER) (test 12.51 mg/dL 0.00-0.50 H code = 676) Shoe Laster ID - HANSA [id number] 09:03:00 Test Item Value Reference Range Interpretation Comments PROTIME (BEAKER) (test code = 15.6 seconds 11.9-14.2 H 759) INR (BEAKER) (test code = 370) 1.3 <=5.9 PARTIAL THROMBOPLASTIN TIME 58.3 seconds 22.5-36.0 H (BEAKER) (test code = 760) Effective 10/21/2018: PT Reference Range ChangeNew: 11.9-14.2 Previous: 11.7- 14.7RECOMMENDED COUMADIN/WARFARIN INR THERAPY RANGESSTANDARD DOSE: 2.0-3.0 Includes: PROPHYLAXIS for venous thrombosis, systemic embolization; TREATMENT for venous thrombosis and/or pulmonary embolus.HIGH RISK: Target INR is2.5-3.5 for patients wiht mechanical heart valves.SPUTUM CULTURE + GRAM [id number] 08:35:00 Test Item Value Reference Range Interpretation Comments CULTURE (BEAKER) 1+ Normal respiratory (test code = 1095) alyse present GRAM STAIN RESULT 3+ White blood cells (BEAKER) (test code = seen 1123) GRAM STAIN RESULT 0-5 epithelial cells (BEAKER) (test code = 23786) GRAM STAIN RESULT No organisms seen (BEAKER) (test code = 25701) BLOOD GAS, [id number] 06:09:00 Test Item Value Reference Range Interpretation Comments PH ARTERIAL (BEAKER) (test code = 7.43 7.35-7.45 383) PCO2 ARTERIAL (BEAKER) (test code 47 mmHg 35-45 H = 384) PO2 ARTERIAL (BEAKER) (test code = 97 mmHg 80-90 H 385) O2 SATURATION ARTERIAL (BEAKER) 97.4 % 96.0-97.0 H (test code = 386) HCO3 ARTERIAL (BEAKER) (test code 30 mmol/L 21-29 H = 388) BASE EXCESS ARTERIAL (BEAKER) 4.9 mmol/L -2.0-3.0 H (test code = 387) PATIENT TEMPERATURE (BEAKER) (test 37.2 C code = 1818) FIO2 (BEAKER) (test code = 1819) 60.0 % POCT-GLUCOSE [id number] 06:06:00 Test Item Value Reference Range Interpretation Comments POC-GLUCOSE METER 271 mg/dL 70-110 H : [facility] (test code = [facility] [place], 1538) [id number]: Shoe Laster/Techni lavinia ID = [id number] for BRIAN GUTIERREZ COMPREHENSIVE METABOLIC [id number] 03:59:00 Test Item Value Reference Range Interpretation Comments TOTAL PROTEIN 5.3 gm/dL 6.0-8.3 L (BEAKER) (test code = 770) ALBUMIN (BEAKER) 2.4 g/dL 3.5-5.0 L (test code = 1145) ALKALINE PHOSPHATASE 55 U/L 40-150 (BEAKER) (test code = 346) BILIRUBIN TOTAL 0.8 mg/dL 0.2-1.2 (BEAKER) (test code = 377) SODIUM (BEAKER) (test 142 meq/L 136-145 code = 381) POTASSIUM (BEAKER) 3.9 meq/L 3.5-5.1 (test code = 379) CHLORIDE (BEAKER) 103 meq/L 98-107 (test code = 382) CO2 (BEAKER) (test 30 meq/L 22-29 H code = 355) BLOOD UREA NITROGEN 32 mg/dL 7-21 H (BEAKER) (test code = 354) CREATININE (BEAKER) 1.27 mg/dL 0.57-1.25 H (test code = 358) GLUCOSE RANDOM 290 mg/dL 70-105 H (BEAKER) (test code = 652) CALCIUM (BEAKER) 7.8 mg/dL 8.4-10.2 L (test code = 697) AST (SGOT) (BEAKER) 51 U/L 5-34 H (test code = 353) ALT (SGPT) (BEAKER) 39 U/L 6-55 (test code = 347) EGFR (BEAKER) (test 55 mL/min/1.73 ESTIMA COCO GFR IS code = 1092) sq m NOT ACCURATE CREATININE CLEARANCE IN PREDICTING GLOMERULAR FILTRATION RATE . ESTIMATED GFR I S NOT APPLICABLE FOR DIALYSIS PATIEN TS. Shoe Laster ID - BRI [id number] 03:56:00 Test Item Value Reference Range Interpretation Comments PHOSPHORUS (BEAKER) (test code = 2.3 mg/dL 2.3-4.7 604) Shoe Laster ID - BRI [id number] 03:56:00 Test Item Value Reference Range Interpretation Comments MAGNESIUM (BEAKER) (test code = 2.1 mg/dL 1.6-2.6 627) Shoe Laster ID - BRI [id number] 03:53:00 Test Item Value Reference Range Interpretation Comments PARTIAL THROMBOPLASTIN TIME 54.3 seconds 22.5-36.0 H (BEAKER) (test code = 760) 6 hours after starting heparin infusion and as indicated per sliding scaleRAD, CHEST, 1 VIEW, NON [id number] 03:48:00Reason for exam:->COVID pneumonia w/ pulmonary edemaFINAL REPORT RAD, CHEST, 1 VIEW, NON DEPT INDICATION: COVID pneumonia w/ pulmonary edema COMPARISON: Prior day's exam FINDINGS: Portable frontal view of the chest. IMPRESSION:Support Lines: Stable. Lungs and pleura: Mildly increased right basilar and right apical patchy airspace disease compatible with slightly worsening edema and/or infection. Small left pleural effusion suggested. No pneumothorax.Heart and mediastinum: Stable contours. Additional findings: None. Signed: Saeed Morris Verified Date/Time: 09/18/2019 03:48:20 OXYGEN SATURATION, [id number] 03:24:00 Test Item Value Reference Range Interpretation Comments O2 SATURATION (MEASURED) (BEAKER) 97.1 % (test code = 1455) Please draw from central venous line - NOT arterial lineBLOOD GAS, ARTERIAL 2019-09-18 00:36:00 Test Item Value Reference Range Interpretation Comments PH ARTERIAL (BEAKER) (test code = 7.42 7.35-7.45 383) PCO2 ARTERIAL (BEAKER) (test code 48 mmHg 35-45 H = 384) PO2 ARTERIAL (BEAKER) (test code = 124 mmHg 80-90 H 385) O2 SATURATION ARTERIAL (BEAKER) 98.5 % 96.0-97.0 H (test code = 386) HCO3 ARTERIAL (BEAKER) (test code 31 mmol/L 21-29 H = 388) BASE EXCESS ARTERIAL (BEAKER) 5.1 mmol/L -2.0-3.0 H (test code = 387) PATIENT TEMPERATURE (BEAKER) (test 37.2 C code = 1818) FIO2 (BEAKER) (test code = 1819) 60.0 % POCT-GLUCOSE [id number] 00:17:00 Test Item Value Reference Range Interpretation Comments POC-GLUCOSE METER 264 mg/dL 70-110 H : [facility] (test code = CAMERONTARIQ [facility], 1538) [id number]: Shoe Laster/Techni lavinia ID = [id number] for ARIE MCGREGOR [id number] 20:36:00 Test Item Value Reference Range Interpretation Comments PARTIAL THROMBOPLASTIN TIME 55.3 seconds 22.5-36.0 H (BEAKER) (test code = 760) Prior to initiating heparinBASIC METABOLIC [id number] 18:43:00 Test Item Value Reference Range Interpretation Comments SODIUM (BEAKER) 139 meq/L 136-145 (test code = 381) POTASSIUM (BEAKER) 4.2 meq/L 3.5-5.1 (test code = 379) CHLORIDE (BEAKER) 101 meq/L 98-107 (test code = 382) CO2 (BEAKER) (test 31 meq/L 22-29 H code = 355) BLOOD UREA NITROGEN 33 mg/dL 7-21 H (BEAKER) (test code = 354) CREATININE (BEAKER) 1.24 mg/dL 0.57-1.25 (test code = 358) GLUCOSE RANDOM 277 mg/dL 70-105 H (BEAKER) (test code = 652) CALCIUM (BEAKER) 7.7 mg/dL 8.4-10.2 L (test code = 697) EGFR (BEAKER) (test 57 mL/min/1.73 ESTIMA COCO GFR IS code = 1092) sq m NOT ACCURATE CREATININE CLEARANCE IN PREDICTING GLOMERULAR FILTRATION RATE . ESTIMATED GFR I S NOT APPLICABLE FOR DIALYSIS PATIEN TS. Shoe Laster ID - [id number] 18:42:00 Test Item Value Reference Range Interpretation Comments MAGNESIUM (BEAKER) (test code = 2.0 mg/dL 1.6-2.6 627) Shoe Laster ID - EMERSONBLOOD GAS, [id number] 18:29:00 Test Item Value Reference Range Interpretation Comments PH ARTERIAL (BEAKER) (test code = 7.41 7.35-7.45 383) PCO2 ARTERIAL (BEAKER) (test code 49 mmHg 35-45 H = 384) PO2 ARTERIAL (BEAKER) (test code = 78 mmHg 80-90 L 385) O2 SATURATION ARTERIAL (BEAKER) 95.6 % 96.0-97.0 L (test code = 386) HCO3 ARTERIAL (BEAKER) (test code 31 mmol/L 21-29 H = 388) BASE EXCESS ARTERIAL (BEAKER) 5.2 mmol/L -2.0-3.0 H (test code = 387) PATIENT TEMPERATURE (BEAKER) (test 36.9 C code = 1818) FIO2 (BEAKER) (test code = 1819) 60.0 % CALCIUM, [id number] 18:29:00 Test Item Value Reference Range Interpretation Comments CALCIUM IONIZED (BEAKER) (test 1.05 mmol/L 1.12-1.27 L code = 698) PH, BLOOD (BEAKER) (test code = 7.41 1810) Check serum Ionized Calcium level after 4 hours after IV Calcium replacement. POCT-GLUCOSE [id number] 18:17:00 Test Item Value Reference Range Interpretation Comments POC-GLUCOSE METER 216 mg/dL 70-110 H : TESTED A T [facility] 6720 (BEAKER) (test code = [facility] [place] [facility], 1538) [id number]: Shoe Laster/Techni lavinia ID = [id number] for GIULIANO TABATHA, STEFANIA [id number] 16:26:00 Test Item Value Reference Range Interpretation Comments PARTIAL THROMBOPLASTIN TIME 47.8 seconds 22.5-36.0 H (BEAKER) (test code = 760) [id number] 15:28:00 Test Item Value Reference Range Interpretation Comments POTASSIUM (BEAKER) (test code = 2.1 meq/L 3.5-5.1 LL 379) Shoe Laster ID - EMERSONCALCIUM, [id number] 12:55:00 Test Item Value Reference Range Interpretation Comments CALCIUM IONIZED (BEAKER) (test 0.98 mmol/L 1.12-1.27 L code = 698) PH, BLOOD (BEAKER) (test code = 7.41 1810) POCT-GLUCOSE [id number] 12:33:00 Test Item Value Reference Range Interpretation Comments POC-GLUCOSE METER 296 mg/dL 70-110 H : TESTED A T [facility] 6720 (BEAKER) (test code = [facility] [place] [facility], 1538) [id number]: Shoe Laster/Techni lavinia ID = [id number] for GIULIANO TABATHA, STEFANIA BLOOD GAS, [id number] 12:24:00 Test Item Value Reference Range Interpretation Comments PH ARTERIAL (BEAKER) (test code = 7.41 7.35-7.45 383) PCO2 ARTERIAL (BEAKER) (test code 47 mmHg 35-45 H = 384) PO2 ARTERIAL (BEAKER) (test code = 161 mmHg 80-90 H 385) O2 SATURATION ARTERIAL (BEAKER) 99.1 % 96.0-97.0 H (test code = 386) HCO3 ARTERIAL (BEAKER) (test code 29 mmol/L 21-29 = 388) BASE EXCESS ARTERIAL (BEAKER) 3.3 mmol/L -2.0-3.0 H (test code = 387) PATIENT TEMPERATURE (BEAKER) (test 36.9 C code = 1818) FIO2 (BEAKER) (test code = 1819) 70.0 % CBC W/PLT COUNT & AUTO [id number] 10:09:00 Test Item Value Reference Range Interpretation Comments WHITE BLOOD CELL COUNT (BEAKER) 7.0 K/ L 3.5-10.5 (test code = 775) RED BLOOD CELL COUNT (BEAKER) 4.84 M/ L 4.63-6.08 (test code = 761) HEMOGLOBIN (BEAKER) (test code = 14.2 GM/DL 13.7-17.5 410) HEMATOCRIT (BEAKER) (test code = 42.1 % 40.1-51.0 411) MEAN CORPUSCULAR VOLUME (BEAKER) 87.0 fL 79.0-92.2 (test code = 753) MEAN CORPUSCULAR HEMOGLOBIN 29.3 pg 25.7-32.2 (BEAKER) (test code = 751) MEAN CORPUSCULAR HEMOGLOBIN CONC 33.7 GM/DL 32.3-36.5 (BEAKER) (test code = 752) RED CELL DISTRIBUTION WIDTH 13.3 % 11.6-14.4 (BEAKER) (test code = 412) PLATELET COUNT (BEAKER) (test 256 K/CU MM 150-450 code = 756) MEAN PLATELET VOLUME (BEAKER) 10.0 fL 9.4-12.4 (test code = 754) NUCLEATED RED BLOOD CELLS 1 /100 WBC 0-0 H (BEAKER) (test code = 413) (CELLAVISION MANUAL DIFF)2019-09-17 10:09:00 Test Item Value Reference Range Interpretation Comments NEUTROPHILS - REL 80 % (CELLAVISION)(BEAKER) (test code = 2816) LYMPHOCYTES - REL 13 % (CELLAVISION)(BEAKER) (test code = 2817) MONOCYTES - REL 5 % (CELLAVISION)(BEAKER) (test code = 2818) BANDS - REL (CELLAVISION)(BEAKER) 1 % 0-10 (test code = 2826) ATYPICAL LYMPHOCYTES - REL 1 % 0-0 H (CELLAVISION)(BEAKER) (test code = 2829) NEUTROPHILS - ABS 5.60 K/ul 1.78-5.38 H (CELLAVISION)(BEAKER) (test code = 2830) LYMPHOCYTES - ABS 0.91 K/ul 1.32-3.57 L (CELLAVISION)(BEAKER) (test code = 2831) MONOCYTES - ABS 0.35 K/uL 0.30-0.82 (CELLAVISION)(BEAKER) (test code = 2832) BANDS - ABS (CELLAVISION)(BEAKER) 0.07 K/uL 0.00-0.80 (test code = 2840) ATYPICAL LYMPHOCYTES - ABS 0.07 K/uL 0.00-0.00 H (CELLAVISION)(BEAKER) (test code = 2858) TOTAL COUNTED (BEAKER) (test code 100 = 1351) WBC MORPHOLOGY (BEAKER) (test Normal code = 487) PLT MORPHOLOGY (BEAKER) (test Normal code = 486) ANISOCYTOSIS (BEAKER) (test code 1+ few = 961) MICROCYTES (BEAKER) (test code = 1+ few 965) POIKILOCYTES (BEAKER) (test code 2+ moderate = 966) KELLIE CELLS (BEAKER) (test code = 1+ few 474) ARTIFACT (CELLAVISION)(BEAKER) Present (test code = 3432) PLATELET CONCENTRATION Adequate (CELLAVISION)(BEAKER) (test code = 3438) Shoe Laster ID - Rebeka Palmer comments: Slide comments:OXYGEN SATURATION, [id number] 08:54:00 Test Item Value Reference Range Interpretation Comments O2 SATURATION (MEASURED) (BEAKER) 85.9 % (test code = 1455) Please verify this is drawn from central line - NOT arterial lineRAD, CHEST, 1 VIEW, NON [id number] 08:31:00Reason for exam:->COVID pneumonia w/ pulmonary edemaFINAL REPORT CLINICAL HISTORY: COVID pneumonia w/ pulmonary edema TECHNIQUE:1 view of the chest. COMPARISON: 09/15/2019 IMPRESSION: The supporting lines and tubes are similar appearing. Right asymmetric airspace opacities are similar appearing. There is new blunting of the leftcostophrenic angle. The cardiomediastinal silhouette is magnified by technique. Signed: Willie Abad MDReport Verified Date/Time: 09/17/2019 08:31:34 Reading Location: [facility] Radiology ReadingRoom BLOOD GAS, [id number] 07:45:00 Test Item Value Reference Range Interpretation Comments PH ARTERIAL (BEAKER) (test code = 7.38 7.35-7.45 383) PCO2 ARTERIAL (BEAKER) (test code 46 mmHg 35-45 H = 384) PO2 ARTERIAL (BEAKER) (test code = 81 mmHg 80-90 385) O2 SATURATION ARTERIAL (BEAKER) 95.7 % 96.0-97.0 L (test code = 386) HCO3 ARTERIAL (BEAKER) (test code 27 mmol/L 21-29 = 388) BASE EXCESS ARTERIAL (BEAKER) 1.2 mmol/L -2.0-3.0 (test code = 387) PATIENT TEMPERATURE (BEAKER) (test 37.0 C code = 1818) FIO2 (BEAKER) (test code = 1819) 70.0 % [id number] 07:42:00 Test Item Value Reference Range Interpretation Comments PHOSPHORUS (BEAKER) (test code = 4.1 mg/dL 2.3-4.7 604) Shoe Laster ID - [id number] 07:42:00 Test Item Value Reference Range Interpretation Comments MAGNESIUM (BEAKER) (test code = 1.9 mg/dL 1.6-2.6 627) Shoe Laster ID - DBCOMPREHENSIVE METABOLIC [id number] 07:42:00 Test Item Value Reference Range Interpretation Comments TOTAL PROTEIN 5.7 gm/dL 6.0-8.3 L (BEAKER) (test code = 770) ALBUMIN (BEAKER) 2.7 g/dL 3.5-5.0 L (test code = 1145) ALKALINE PHOSPHATASE 67 U/L 40-150 (BEAKER) (test code = 346) BILIRUBIN TOTAL 1.8 mg/dL 0.2-1.2 H (BEAKER) (test code = 377) SODIUM (BEAKER) (test 134 meq/L 136-145 L code = 381) POTASSIUM (BEAKER) 2.9 meq/L 3.5-5.1 L (test code = 379) CHLORIDE (BEAKER) 99 meq/L 98-107 (test code = 382) CO2 (BEAKER) (test 25 meq/L 22-29 code = 355) BLOOD UREA NITROGEN 38 mg/dL 7-21 H (BEAKER) (test code = 354) CREATININE (BEAKER) 1.50 mg/dL 0.57-1.25 H (test code = 358) GLUCOSE RANDOM 292 mg/dL 70-105 H (BEAKER) (test code = 652) CALCIUM (BEAKER) 7.2 mg/dL 8.4-10.2 L (test code = 697) AST (SGOT) (BEAKER) 51 U/L 5-34 H (test code = 353) ALT (SGPT) (BEAKER) 38 U/L 6-55 (test code = 347) EGFR (BEAKER) (test 46 mL/min/1.73 ESTIMA COCO GFR IS code = 1092) sq m NOT ACCURATE CREATININE CLEARANCE IN PREDICTING GLOMERULAR FILTRATION RATE . ESTIMATED GFR I S NOT APPLICABLE FOR DIALYSIS PATIEN TS. Shoe Laster ID - DBCALCIUM, [id number] 06:32:00 Test Item Value Reference Range Interpretation Comments CALCIUM IONIZED (BEAKER) (test 0.92 mmol/L 1.12-1.27 L code = 698) PH, BLOOD (BEAKER) (test code = 7.39 1810) OXYGEN SATURATION, [id number] 06:19:00 Test Item Value Reference Range Interpretation Comments O2 SATURATION (MEASURED) (BEAKER) 93.9 % (test code = 1455) THROMBOELASTOGRAPH (TEG)2019-09-17 06:04:00 Test Item Value Reference Range Interpretation Comments TEG ACTIVATED CLOTTING TIME 3.8 minutes 4.0-7.0 L (BEAKER) (test code = 1407) TEG FIBRINOGEN ACTIVITY (BEAKER) 75.1 degrees 61.0-73.0 H (test code = 1408) TEG PLT. AGGREGATION (BEAKER) 79.4 MM 55.0-65.0 H (test code = 1409) TEG FIBRINOLYSIS (BEAKER) (test 0.0 % 0.0-5.0 G=19.2K code = 1410) TGH ACTIVATED CLOTTING TIME 3.7 minutes 4.0-7.0 L (BEAKER) (test code = 1411) TGH FIBRINOGEN ACTIVITY (BEAKER) 76.0 degrees 61.0-73.0 H (test code = 1412) TGH PLT. AGGREGATION (BEAKER) 79.1 MM 55.0-65.0 H (test code = 1413) TGH FIBRINOLYSIS (BEAKER) (test 0.0 % 0.0-5.0 G=18.9K code = 1414) POCT-GLUCOSE [id number] 05:41:00 Test Item Value Reference Range Interpretation Comments POC-GLUCOSE METER 263 mg/dL 70-110 H : TESTED A T [facility] 6720 (BEAKER) (test code = [facility] [employer] [facility], 153) [id number]: Shoe Laster/Techni lavinia ID = [id number] for JEFFERSON HENRY [id number] 05:35:00 Test Item Value Reference Range Interpretation Comments PARTIAL THROMBOPLASTIN TIME 36.7 seconds 22.5-36.0 H (BEAKER) (test code = 760) 6 hours after starting heparin infusion and as indicated per sliding scaleBLOOD GAS, [id number] 23:45:00 Test Item Value Reference Range Interpretation Comments PH ARTERIAL (BEAKER) (test code = 7.33 7.35-7.45 L 383) PCO2 ARTERIAL (BEAKER) (test code 46 mmHg 35-45 H = 384) PO2 ARTERIAL (BEAKER) (test code 71 mmHg 80-90 L = 385) O2 SATURATION ARTERIAL (BEAKER) 93.2 % 96.0-97.0 L (test code = 386) HCO3 ARTERIAL (BEAKER) (test code 24 mmol/L 21-29 = 388) BASE EXCESS ARTERIAL (BEAKER) -2.5 mmol/L -2.0-3.0 L (test code = 387) PATIENT TEMPERATURE (BEAKER) 37.0 C (test code = 1818) FIO2 (BEAKER) (test code = 1819) 60.0 % POCT-GLUCOSE [id number] 23:09:00 Test Item Value Reference Range Interpretation Comments POC-GLUCOSE METER 216 mg/dL 70-110 H : TESTED A T [facility] 6720 (BEAKER) (test code = [facility] [employer] [facility], 153) [id number]: Shoe Laster/Techni lavinia ID = [id number] for MARIA D MONREAL POCT-GLUCOSE [id number] 18:16:00 Test Item Value Reference Range Interpretation Comments POC-GLUCOSE METER 127 mg/dL 70-110 H : TESTED A T [facility] 6720 (BEAKER) (test code = KVNG [employer] [facility], 1538) [id number]: Shoe Laster/Techni lavinia ID = [id number] for CINDA WALTER BLOOD GAS, [id number] 18:03:00 Test Item Value Reference Range Interpretation Comments PH ARTERIAL (BEAKER) (test code = 7.37 7.35-7.45 383) PCO2 ARTERIAL (BEAKER) (test code 47 mmHg 35-45 H = 384) PO2 ARTERIAL (BEAKER) (test code = 84 mmHg 80-90 385) O2 SATURATION ARTERIAL (BEAKER) 94.4 % 96.0-97.0 L (test code = 386) HCO3 ARTERIAL (BEAKER) (test code 26 mmol/L 21-29 = 388) BASE EXCESS ARTERIAL (BEAKER) 1.0 mmol/L -2.0-3.0 (test code = 387) PATIENT TEMPERATURE (BEAKER) (test 39.5 C code = 1818) FIO2 (BEAKER) (test code = 1819) 60.0 % BASIC METABOLIC [id number] 16:48:00 Test Item Value Reference Range Interpretation Comments SODIUM (BEAKER) 137 meq/L 136-145 (test code = 381) POTASSIUM (BEAKER) 3.6 meq/L 3.5-5.1 (test code = 379) CHLORIDE (BEAKER) 100 meq/L 98-107 (test code = 382) CO2 (BEAKER) (test 28 meq/L 22-29 code = 355) BLOOD UREA NITROGEN 35 mg/dL 7-21 H (BEAKER) (test code = 354) CREATININE (BEAKER) 1.34 mg/dL 0.57-1.25 H (test code = 358) GLUCOSE RANDOM 122 mg/dL 70-105 H (BEAKER) (test code = 652) CALCIUM (BEAKER) 7.5 mg/dL 8.4-10.2 L (test code = 697) EGFR (BEAKER) (test 52 mL/min/1.73 ESTIMA COCO GFR IS code = 1092) sq m NOT ACCURATE CREATININE CLEARANCE IN PREDICTING GLOMERULAR FILTRATION RATE . ESTIMATED GFR I S NOT APPLICABLE FOR DIALYSIS PATIEN TS. Shoe Laster ID - [id number] 16:44:00 Test Item Value Reference Range Interpretation Comments PARTIAL THROMBOPLASTIN TIME 34.1 seconds 22.5-36.0 (BEAKER) (test code = 760) Prior to initiating [id number] 16:43:00 Test Item Value Reference Range Interpretation Comments FERRITIN (BEAKER) (test code = 913.66 ng/mL 5.00-275.00 H 361) Shoe Laster ID - [id number] (HEMOGRAM ONLY)2019-09-16 16:36:00 Test Item Value Reference Range Interpretation Comments WHITE BLOOD CELL COUNT (BEAKER) 10.5 K/ L 3.5-10.5 (test code = 775) RED BLOOD CELL COUNT (BEAKER) 4.88 M/ L 4.63-6.08 (test code = 761) HEMOGLOBIN (BEAKER) (test code = 14.0 GM/DL 13.7-17.5 410) HEMATOCRIT (BEAKER) (test code = 42.3 % 40.1-51.0 411) MEAN CORPUSCULAR VOLUME (BEAKER) 86.7 fL 79.0-92.2 (test code = 753) MEAN CORPUSCULAR HEMOGLOBIN 28.7 pg 25.7-32.2 (BEAKER) (test code = 751) MEAN CORPUSCULAR HEMOGLOBIN CONC 33.1 GM/DL 32.3-36.5 (BEAKER) (test code = 752) RED CELL DISTRIBUTION WIDTH 13.3 % 11.6-14.4 (BEAKER) (test code = 412) PLATELET COUNT (BEAKER) (test 278 K/CU MM 150-450 code = 756) MEAN PLATELET VOLUME (BEAKER) 9.6 fL 9.4-12.4 (test code = 754) NUCLEATED RED BLOOD CELLS 2 /100 WBC 0-0 H (BEAKER) (test code = 413) THROMBOELASTOGRAPH (TEG)2019-09-16 14:54:00 Test Item Value Reference Range Interpretation Comments TEG ACTIVATED CLOTTING TIME 3.5 minutes 4.0-7.0 L (BEAKER) (test code = 1407) TEG FIBRINOGEN ACTIVITY (BEAKER) 76.6 degrees 61.0-73.0 H (test code = 1408) TEG PLT. AGGREGATION (BEAKER) 78.5 MM 55.0-65.0 H (test code = 1409) TGH ACTIVATED CLOTTING TIME 3.7 minutes 4.0-7.0 L (BEAKER) (test code = 1411) TGH FIBRINOGEN ACTIVITY (BEAKER) 77.8 degrees 61.0-73.0 H (test code = 1412) TGH PLT. AGGREGATION (BEAKER) 80.8 MM 55.0-65.0 H (test code = 1413) BLOOD GAS, [id number] 13:13:00 Test Item Value Reference Range Interpretation Comments PH ARTERIAL (BEAKER) (test code = 7.36 7.35-7.45 383) PCO2 ARTERIAL (BEAKER) (test code 52 mmHg 35-45 H = 384) PO2 ARTERIAL (BEAKER) (test code = 109 mmHg 80-90 H 385) O2 SATURATION ARTERIAL (BEAKER) 96.9 % 96.0-97.0 (test code = 386) HCO3 ARTERIAL (BEAKER) (test code 28 mmol/L 21-29 = 388) BASE EXCESS ARTERIAL (BEAKER) 2.4 mmol/L -2.0-3.0 (test code = 387) PATIENT TEMPERATURE (BEAKER) (test 40.0 C code = 1818) FIO2 (BEAKER) (test code = 1819) 80.0 % [id number] 12:21:00 Test Item Value Reference Range Interpretation Comments PROCALCITONIN (BEAKER) (test code 0.39 ng/mL <0.05 H = 3036) SEPSIS RISK (ng/mL)Low: 0.05-0.50Intermediate: 0.51-2.00High: >=[id number] 12:03:00 Test Item Value Reference Range Interpretation Comments D-DIMER QUANTITATIVE (BEAKER) 13.67 MG/L FEU <0.50 H (test code = 671) Intended Use: The D-Dimer Assay can be used to aid in the diagnosis of Deep Vein Thrombosis (DVT) and Pulmonary Embolism Disease (PED).In patients with low pre- test probability, various studies concerning STA Liatest D-dimer test have reported that with a cutoff value of 0.50 MG/L FEU, the Negative Predictive Value (NPV) regarding the exclusion of thrombosis is within 95-100% range. [id number] 12:03:00 Test Item Value Reference Range Interpretation Comments PHOSPHORUS (BEAKER) (test code = 3.2 mg/dL 2.3-4.7 604) Shoe Laster ID - [id number] 12:03:00 Test Item Value Reference Range Interpretation Comments MAGNESIUM (BEAKER) (test code = 1.9 mg/dL 1.6-2.6 627) Shoe Laster ID - NTPC-REACTIVE [id number] 12:01:00 Test Item Value Reference Range Interpretation Comments C-REACTIVE PROTEIN (BEAKER) (test 20.44 mg/dL 0.00-0.50 H code = 676) Shoe Laster ID - NTPBLOOD GAS, [id number] 11:38:00 Test Item Value Reference Range Interpretation Comments PH ARTERIAL (BEAKER) (test code = 7.41 7.35-7.45 383) PCO2 ARTERIAL (BEAKER) (test code 50 mmHg 35-45 H = 384) PO2 ARTERIAL (BEAKER) (test code = 214 mmHg 80-90 H 385) O2 SATURATION ARTERIAL (BEAKER) 99.4 % 96.0-97.0 H (test code = 386) HCO3 ARTERIAL (BEAKER) (test code 30 mmol/L 21-29 H = 388) BASE EXCESS ARTERIAL (BEAKER) 5.3 mmol/L -2.0-3.0 H (test code = 387) PATIENT TEMPERATURE (BEAKER) (test 39.6 C code = 1818) FIO2 (BEAKER) (test code = 1819) 100.0 % POCT-GLUCOSE [id number] 11:28:00 Test Item Value Reference Range Interpretation Comments POC-GLUCOSE METER 92 mg/dL 70-110 : TESTED A T [facility] 6720 (BEAKER) (test code = [place], 1538) [address]: Shoe Laster/Techni lavinia ID = [id number] for PAYN E, FLAKITA LACTATE DEHYDROGENASE (LDH)2019-09-16 11:05:00 Test Item Value Reference Range Interpretation Comments LACTATE DEHYDROGENASE 929 U/L 125-220 H Specim en slightly (BEAKER) (test code = hemoly zed 635) Shoe Laster ID - NTPLEGIONELLA ANTIGEN, [id number] 07:55:00 Test Item Value Reference Range Interpretation Comments L. PNEUMOPHILA Negative - see Negative fo r L. SEROGP 1 UR AG comment pneumophila (BEAKER) (test code serogrou p 1 antigen, = 1156) suggesting no r ecent or current infe ction with this serog roup. Legionellosis c annot be ruled out si nce other serogroup s and species may cau se disease. STREP PNEUMONIAE [id number] 07:54:00 Test Item Value Reference Range Interpretation Comments STREP PNEUMONIAE Presumptive negative Presumptive negative ANTIGEN (BEAKER) for pneumococcal for pneumococcal (test code = 1615) pneumonia - see pneumonia - see comment commen Presumptive negative for pneumococcal pneumonia, suggesting no current or recent pneumococcal infection. Infection due to S. pneumoniae cannot be ruled out since the antigen present in the sample may be below the detection limit of the test.TROPONIN [id number] 07:26:00 Test Item Value Reference Range Interpretation Comments TROPONIN I (BEAKER) (test code = 0.16 ng/mL 0.00-0.03 H 397) Troponin I (TnI) levels must be interpreted in the context of the presenting symptoms and the clinical findings. Elevated TnI levels indicate myocardial damage, but are not specific for ischemic heart disease. Elevated TnI levels are seen in patients with other cardiac conditions (including myocarditis and congestive heart failure), and slight TnI elevations occur in patients with other conditions, including sepsis, renal failure, acidosis, acute neurological disease, and persistent tachyarrhythmia.Shoe Laster ID - PIAYA LCOMPREHENSIVE METABOLIC [id number] 07:19:00 Test Item Value Reference Range Interpretation Comments TOTAL PROTEIN 5.4 gm/dL 6.0-8.3 L (BEAKER) (test code = 770) ALBUMIN (BEAKER) 2.6 g/dL 3.5-5.0 L (test code = 1145) ALKALINE PHOSPHATASE 58 U/L 40-150 (BEAKER) (test code = 346) BILIRUBIN TOTAL 1.5 mg/dL 0.2-1.2 H (BEAKER) (test code = 377) SODIUM (BEAKER) (test 138 meq/L 136-145 code = 381) POTASSIUM (BEAKER) 3.0 meq/L 3.5-5.1 L (test code = 379) CHLORIDE (BEAKER) 97 meq/L 98-107 L (test code = 382) CO2 (BEAKER) (test 32 meq/L 22-29 H code = 355) BLOOD UREA NITROGEN 31 mg/dL 7-21 H (BEAKER) (test code = 354) CREATININE (BEAKER) 1.15 mg/dL 0.57-1.25 (test code = 358) GLUCOSE RANDOM 102 mg/dL 70-105 (BEAKER) (test code = 652) CALCIUM (BEAKER) 7.3 mg/dL 8.4-10.2 L (test code = 697) AST (SGOT) (BEAKER) 78 U/L 5-34 H (test code = 353) ALT (SGPT) (BEAKER) 46 U/L 6-55 (test code = 347) EGFR (BEAKER) (test 62 mL/min/1.73 ESTIMA COCO GFR IS code = 1092) sq m NOT ACCURATE CREATININE CLEARANCE IN PREDICTING GLOMERULAR FILTRATION RATE . ESTIMATED GFR I S NOT APPLICABLE FOR DIALYSIS PATIEN TS. Shoe Laster ID - MARIZA [id number] 07:18:00 Test Item Value Reference Range Interpretation Comments PHOSPHORUS (BEAKER) (test code = 3.8 mg/dL 2.3-4.7 604) Shoe Laster ID - MARIZA [id number] 07:18:00 Test Item Value Reference Range Interpretation Comments MAGNESIUM (BEAKER) (test code = 2.0 mg/dL 1.6-2.6 627) Shoe Laster ID - MARIZA LC-REACTIVE [id number] 07:18:00 Test Item Value Reference Range Interpretation Comments C-REACTIVE PROTEIN (BEAKER) (test 19.31 mg/dL 0.00-0.50 H code = 676) Shoe Laster ID - AMRIZA LBLOOD GAS, [id number] 07:00:00 Test Item Value Reference Range Interpretation Comments PH ARTERIAL (BEAKER) (test code = 7.41 7.35-7.45 383) PCO2 ARTERIAL (BEAKER) (test code 51 mmHg 35-45 H = 384) PO2 ARTERIAL (BEAKER) (test code = 48 mmHg 80-90 L 385) O2 SATURATION ARTERIAL (BEAKER) 83.9 % 96.0-97.0 L (test code = 386) HCO3 ARTERIAL (BEAKER) (test code 32 mmol/L 21-29 H = 388) BASE EXCESS ARTERIAL (BEAKER) 5.6 mmol/L -2.0-3.0 H (test code = 387) PATIENT TEMPERATURE (BEAKER) (test 37.0 C code = 1818) FIO2 (BEAKER) (test code = 1819) 100.0 % CALCIUM, [id number] 05:46:00 Test Item Value Reference Range Interpretation Comments CALCIUM IONIZED (BEAKER) (test 0.95 mmol/L 1.12-1.27 L code = 698) PH, BLOOD (BEAKER) (test code = 7.39 1810) CBC W/PLT COUNT & AUTO [id number] 05:38:00 Test Item Value Reference Range Interpretation Comments WHITE BLOOD CELL COUNT (BEAKER) 8.0 K/ L 3.5-10.5 (test code = 775) RED BLOOD CELL COUNT (BEAKER) 4.48 M/ L 4.63-6.08 L (test code = 761) HEMOGLOBIN (BEAKER) (test code = 13.5 GM/DL 13.7-17.5 L 410) HEMATOCRIT (BEAKER) (test code = 39.1 % 40.1-51.0 L 411) MEAN CORPUSCULAR VOLUME (BEAKER) 87.3 fL 79.0-92.2 (test code = 753) MEAN CORPUSCULAR HEMOGLOBIN 30.1 pg 25.7-32.2 (BEAKER) (test code = 751) MEAN CORPUSCULAR HEMOGLOBIN CONC 34.5 GM/DL 32.3-36.5 (BEAKER) (test code = 752) RED CELL DISTRIBUTION WIDTH 13.1 % 11.6-14.4 (BEAKER) (test code = 412) PLATELET COUNT (BEAKER) (test 195 K/CU MM 150-450 code = 756) MEAN PLATELET VOLUME (BEAKER) 10.1 fL 9.4-12.4 (test code = 754) NUCLEATED RED BLOOD CELLS 1 /100 WBC 0-0 H (BEAKER) (test code = 413) NEUTROPHILS RELATIVE PERCENT 84 % (BEAKER) (test code = 429) LYMPHOCYTES RELATIVE PERCENT 12 % (BEAKER) (test code = 430) MONOCYTES RELATIVE PERCENT 2 % (BEAKER) (test code = 431) EOSINOPHILS RELATIVE PERCENT 0 % (BEAKER) (test code = 432) BASOPHILS RELATIVE PERCENT 0 % (BEAKER) (test code = 437) NEUTROPHILS ABSOLUTE COUNT 6.69 K/ L 1.78-5.38 H (BEAKER) (test code = 670) LYMPHOCYTES ABSOLUTE COUNT 0.96 K/ L 1.32-3.57 L (BEAKER) (test code = 414) MONOCYTES ABSOLUTE COUNT (BEAKER) 0.19 K/ L 0.30-0.82 L (test code = 415) EOSINOPHILS ABSOLUTE COUNT 0.03 K/ L 0.04-0.54 L (BEAKER) (test code = 416) BASOPHILS ABSOLUTE COUNT (BEAKER) 0.02 K/ L 0.01-0.08 (test code = 417) IMMATURE GRANULOCYTES-RELATIVE 2 % 0-1 H PERCENT (BEAKER) (test code = 2801) [id number] 05:27:00 Test Item Value Reference Range Interpretation Comments FERRITIN (BEAKER) (test code = 631.69 ng/mL 5.00-275.00 H 361) Shoe Laster ID - PIAYA LTHROMBOELASTOGRAPH (TEG)2019-09-16 02:43:00 Test Item Value Reference Range Interpretation Comments TEG ACTIVATED CLOTTING TIME 2.6 minutes 4.0-7.0 L (BEAKER) (test code = 1407) TEG FIBRINOGEN ACTIVITY (BEAKER) 75.1 degrees 61.0-73.0 H (test code = 1408) TEG PLT. AGGREGATION (BEAKER) 65.6 MM 55.0-65.0 H (test code = 1409) TEG FIBRINOLYSIS (BEAKER) (test 0.0 % 0.0-5.0 G=9.5k code = 1410) TGH ACTIVATED CLOTTING TIME 2.6 minutes 4.0-7.0 L (BEAKER) (test code = 1411) TGH FIBRINOGEN ACTIVITY (BEAKER) 78.9 degrees 61.0-73.0 H (test code = 1412) TGH PLT. AGGREGATION (BEAKER) 76.0 MM 55.0-65.0 H (test code = 1413) TGH FIBRINOLYSIS (BEAKER) (test 0.0 % 0.0-5.0 G=15.8k code = 1414) BLOOD GAS, [id number] 01:56:00 Test Item Value Reference Range Interpretation Comments PH ARTERIAL (BEAKER) (test code = 7.41 7.35-7.45 383) PCO2 ARTERIAL (BEAKER) (test code 48 mmHg 35-45 H = 384) PO2 ARTERIAL (BEAKER) (test code = 150 mmHg 80-90 H 385) O2 SATURATION ARTERIAL (BEAKER) 98.9 % 96.0-97.0 H (test code = 386) HCO3 ARTERIAL (BEAKER) (test code 30 mmol/L 21-29 H = 388) BASE EXCESS ARTERIAL (BEAKER) 3.9 mmol/L -2.0-3.0 H (test code = 387) PATIENT TEMPERATURE (BEAKER) (test 37.0 C code = 1818) FIO2 (BEAKER) (test code = 1819) 100.0 % CBC W/PLT COUNT & AUTO [id number] 01:34:00 Test Item Value Reference Range Interpretation Comments WHITE BLOOD CELL COUNT (BEAKER) 7.9 K/ L 3.5-10.5 (test code = 775) RED BLOOD CELL COUNT (BEAKER) 4.63 M/ L 4.63-6.08 (test code = 761) HEMOGLOBIN (BEAKER) (test code = 14.0 GM/DL 13.7-17.5 410) HEMATOCRIT (BEAKER) (test code = 40.0 % 40.1-51.0 L 411) MEAN CORPUSCULAR VOLUME (BEAKER) 86.4 fL 79.0-92.2 (test code = 753) MEAN CORPUSCULAR HEMOGLOBIN 30.2 pg 25.7-32.2 (BEAKER) (test code = 751) MEAN CORPUSCULAR HEMOGLOBIN CONC 35.0 GM/DL 32.3-36.5 (BEAKER) (test code = 752) RED CELL DISTRIBUTION WIDTH 12.8 % 11.6-14.4 (BEAKER) (test code = 412) PLATELET COUNT (BEAKER) (test 235 K/CU MM 150-450 code = 756) MEAN PLATELET VOLUME (BEAKER) 9.8 fL 9.4-12.4 (test code = 754) NUCLEATED RED BLOOD CELLS 1 /100 WBC 0-0 H (BEAKER) (test code = 413) (CELLAVISION MANUAL DIFF)2019-09-16 01:34:00 Test Item Value Reference Range Interpretation Comments NEUTROPHILS - REL 92 % (CELLAVISION)(BEAKER) (test code = 2816) LYMPHOCYTES - REL 4 % (CELLAVISION)(BEAKER) (test code = 2817) MONOCYTES - REL 3 % (CELLAVISION)(BEAKER) (test code = 2818) METAMYELOCYTES - REL 1 % 0-0 H (CELLAVISION)(BEAKER) (test code = 2821) NEUTROPHILS - ABS 7.27 K/ul 1.78-5.38 H (CELLAVISION)(BEAKER) (test code = 2830) LYMPHOCYTES - ABS 0.32 K/ul 1.32-3.57 L (CELLAVISION)(BEAKER) (test code = 2831) MONOCYTES - ABS 0.24 K/uL 0.30-0.82 L (CELLAVISION)(BEAKER) (test code = 2832) METAMYELOCYTES - ABS 0.08 K/uL 0.00-0.00 H (CELLAVISION)(BEAKER) (test code = 2836) TOTAL COUNTED (BEAKER) (test code 100 = 1351) MANUAL NRBC PER 100 CELLS (BEAKER) 1 /100 WBC 0-0 H (test code = 1353) WBC MORPHOLOGY (BEAKER) (test code Normal = 487) PLT MORPHOLOGY (BEAKER) (test code Normal = 486) POLYCHROMATOPHILLIC RBCS(BEAKER) 1+ few (test code = 478) ARTIFACT (CELLAVISION)(BEAKER) Present (test code = 3432) PLATELET CONCENTRATION Adequate (CELLAVISION)(BEAKER) (test code = 3438) Shoe Laster GLORIA - Yogi Cohen comments: Slide comments:HEPATITIS B PANEL 2019-09-16 00:51:00 Test Item Value Reference Range Interpretation Comments HEPATITIS B CORE TOTAL ANTIBODY Nonreactive Nonreactive (BEAKER) (test code = 497) HEPATITIS B SURFACE ANTIBODY < mIU/mL <8.0 (BEAKER) (test code = 647) HEPATITIS B SURFACE ANTIGEN (2) Nonreactive Nonreactive (BEAKER) (test code = 2585) Shoe Laster ID - MARIZA LHEPATITIS C [id number] 00:27:00 Test Item Value Reference Range Interpretation Comments HEPATITIS C ANTIBODY (BEAKER) Nonreactive Nonreactive (test code = 367) Shoe Laster ID - MARIZA LHIV-1 ANTIGEN WITH HIV-1/2 [id number] 00:27:00 Test Item Value Reference Range Interpretation Comments HIV-1 ANTIGEN WITH HIV 1\T\2 Nonreactive Nonreactive ANTIBODY (2) (BEAKER) (test code = 2586) Shoe Laster ID - MARIZA LTROPONIN [id number] 00:18:00 Test Item Value Reference Range Interpretation Comments TROPONIN I (GUERO) (test code = 0.19 ng/mL 0.00-0.03 H 397) Troponin I (TnI) levels must be interpreted in the context of the presenting symptoms and the clinical findings. Elevated TnI levels indicate myocardial damage, but are not specific for ischemic heart disease. Elevated TnI levels are seen in patients with other cardiac conditions (including myocarditis and congestive heart failure), and slight TnI elevations occur in patients with other conditions, including sepsis, renal failure, acidosis, acute neurological disease, and persistent tachyarrhythmia.Shoe Laster ID - MARIZA LLACTATE DEHYDROGENASE (LDH)2019-09-16 00:18:00 Test Item Value Reference Range Interpretation Comments LACTATE DEHYDROGENASE 979 U/L 125-220 H Specim en slightly ([facility]) (test code = hemoly zed 635) Shoe Laster ID - MARIZA LCREATINE KINASE (CK)2019-09-16 00:07:00 Test Item Value Reference Range Interpretation Comments CREATINE KINASE TOTAL (SOLOMON) (test 1175 U/L 29-200 H code = 380) Shoe Laster ID - MARIZA LC-REACTIVE [id number] 00:07:00 Test Item Value Reference Range Interpretation Comments C-REACTIVE PROTEIN (GUERO) (test 18.83 mg/dL 0.00-0.50 H code = 676) Shoe Laster ID - MARIZA LLACTIC ACID, [id number] 00:02:00 Test Item Value Reference Range Interpretation Comments LACTATE BLOOD 1.4 mmol/L 0.5-2.2 Specimen sligh tly ARTERIAL (2) ([facility]) hemoly zed (test code = 2874) Shoe Laster ID - MARIZA [id number] 00:01:00 Test Item Value Reference Range Interpretation Comments D-DIMER QUANTITATIVE (SOLOMON) 4.29 MG/L FEU <0.50 H (test code = 671) Intended Use: The D-Dimer Assay can be used to aid in the diagnosis of Deep Vein Thrombosis (DVT) and Pulmonary Embolism Disease (PED).In patients with low pre- test probability, various studies concerning STA Liatest D-dimer test have reported that with a cutoff value of 0.50 MG/L FEU, the Negative Predictive Value (NPV) regarding the exclusion of thrombosis is within 95-100% range.BLOOD GAS, [id number] 23:59:00 Test Item Value Reference Range Interpretation Comments PH VENOUS (BEAKER) (test code = 7.36 7.32-7.42 701) PCO2 VENOUS (BEAKER) (test code = 57 mmHg 41-51 H 755) PO2 VENOUS (BEAKER) (test code = 46 mmHg 25-40 H 702) O2 SATURATION VENOUS (BEAKER) 79.0 % 40.0-70.0 H (test code = 703) HCO3 VENOUS (BEAKER) (test code = 31 mmol/L 21-29 H 705) BASE EXCESS VENOUS (BEAKER) (test 4.2 mmol/L -2.0-3.0 H code = 704) PATIENT TEMPERATURE (BEAKER) (test 37.0 C code = 1818) FIO2 (BEAKER) (test code = 1819) 100.0 % BLOOD GAS, [id number] 23:59:00 Test Item Value Reference Range Interpretation Comments PH ARTERIAL (BEAKER) (test code = 7.38 7.35-7.45 383) PCO2 ARTERIAL (BEAKER) (test code 51 mmHg 35-45 H = 384) PO2 ARTERIAL (BEAKER) (test code = 95 mmHg 80-90 H 385) O2 SATURATION ARTERIAL (BEAKER) 97.1 % 96.0-97.0 H (test code = 386) HCO3 ARTERIAL (BEAKER) (test code 30 mmol/L 21-29 H = 388) BASE EXCESS ARTERIAL (BEAKER) 3.6 mmol/L -2.0-3.0 H (test code = 387) PATIENT TEMPERATURE (BEAKER) (test 37.0 C code = 1818) FIO2 (BEAKER) (test code = 1819) 100.0 % [id number] 23:52:00 Test Item Value Reference Range Interpretation Comments PARTIAL THROMBOPLASTIN TIME 28.0 seconds 22.5-36.0 (BEAKER) (test code = 760) PROTHROMBIN [id number] 23:51:00 Test Item Value Reference Range Interpretation Comments PROTIME (BEAKER) (test code = 15.0 seconds 11.9-14.2 H 759) INR (BEAKER) (test code = 370) 1.2 <=5.9 Effective 10/21/2018: PT Reference Range ChangeNew: 11.9-14.2 Previous: 11.7- 14.7RECOMMENDED COUMADIN/WARFARIN INR THERAPY RANGESSTANDARD DOSE: 2.0-3.0 Includes: PROPHYLAXIS for venous thrombosis, systemic embolization; TREATMENT for venous thrombosis and/or pulmonary embolus.HIGH RISK: Target INR is2.5-3.5 for patients wiht mechanical heart valves.[id number] 23:51:00 Test Item Value Reference Range Interpretation Comments FIBRINOGEN LEVEL (GUERO) (test 668 mg/dl 225-434 H code = 658) RAD, CHEST, 1 VIEW, NON [id number] 23:46:00Reason for exam:->CVC line placementShould this be performed at the bedside?->YesFINAL REPORT RAD, CHEST, 1 VIEW, NON DEPT, RAD, ABDOMEN/KUB, 1 VIEW AP INDICAT ION: CVC line placement COMPARISON: Chest x-ray September 15, 2019 FINDINGS: Portable frontal view of the chest. Single frontal view of the abdomen IMPRESSION: Support Lines: Endotracheal tube terminates4 cm above the dai. Enteric tube tip overlies the gastric body. Lungs and pleura: Airspace opacities are improved suggesting reduce pulmonary edema or atelectasis. No large pleural effusion. No pneumothorax.Heart and mediastinum: Stable contours. Abdominal findings: Gaseous distention of bowel loops is nonspecific without convincing evidence of bowel obstruction. Aortoiliac vascular stent graft noted. Free air assessment is suboptimally characterized on supine imaging. No pneumatosis or portal venous gas. Unremarkable osseous structures. Signed: Brett Goldberg MDReport Verified Date/Time: 09/15/2019 23:46:51 RAD, ABDOMEN/KUB, 1 VIEW AP 2019-09-15 23:46:00Reason for exam:->abdominal distentionShould this be performed at the bedside?->YesFINAL REPORT RAD, CHEST, 1 VIEW, NON DEPT, RAD, ABDOMEN/KUB, 1 VIEW AP INDICATION: CVC line placement COMPARISON: Chest x-ray September 15, 2019 FINDINGS: Portable frontal view of the chest. Single frontal view of the abdomen IMPRESSION: Support Lines: Endotracheal tube terminates4 cm above the dai. Enteric tube tip overlies the gastric body. Lungs and pleura: Airspace opacities are improved suggesting reduce pulmonary edema or atelectasis. No large pleural effusion. No pneum othorax.Heart and mediastinum: Stable contours. Abdominal findings: Gaseous distention of bowel loops is nonspecific without convincing evidence of bowel obstruction. Aortoiliac vascular stent graft noted. Free air assessment is suboptimally characterized on supine imaging. No pneumatosis or portal venous gas. Unremarkable osseous structures. Signed: Brett Goldberg MDReport Verified Date/Time: 09/15/2019 23:46:51 RESPIRATORY PANEL [id number] 21:29:00 Test Item Value Reference Range Interpretation Comments HUMAN METAPNEUMOVIRUS Not detected Not detected, (BEAKER) (test code = 2683) Equivocal RHINOVIRUS (BEAKER) (test Not detected Not detected, code = 2684) Equivocal INFLUENZA A (BEAKER) (test Not detected Not detected, code = 2685) Equivocal INFLUENZA A (NO SUBTYPE) (test code = 3606) INFLUENZA A SUBTYPE H1 (BEAKER) (test code = 2686) INFLUENZA A SUBTYPE H3 (BEAKER) (test code = 2687) INFLUENZA A SUBTYPE H1-2009 (BEAKER) (test code = 3198) INFLUENZA B (BEAKER) (test Not detected Not detected, code = 2688) Equivocal RESPIRATORY SYNCYTIAL VIRUS Not detected Not detected, (BEAKER) (test code = 3199) Equivocal PARAINFLUENZA VIRUS 1 Not detected Not detected, (BEAKER) (test code = 2691) Equivocal PARAINFLUENZA VIRUS 2 Not detected Not detected, (BEAKER) (test code = 2692) Equivocal PARAINFLUENZA VIRUS 3 Not detected Not detected, (BEAKER) (test code = 2693) Equivocal PARAINFLUENZA VIRUS 4 Not detected Not detected, (BEAKER) (test code = 3200) Equivocal ADENOVIRUS (BEAKER) (test Not detected Not detected, code = 2694) Equivocal CORONAVIRUS 229E (BEAKER) Not detected Not detected, (test code = 3201) Equivocal CORONAVIRUS HKU1 (BEAKER) Not detected Not detected, (test code = 3202) Equivocal CORONAVIRUS NL63 (BEAKER) Not detected Not detected, (test code = 3203) Equivocal CORONAVIRUS OC43 (BEAKER) Not detected Not detected, (test code = 3204) Equivocal BORDETELLA PERTUSSIS Not detected Not detected, (BEAKER) (test code = 3205) Equivocal CHLAMYDOPHILA PNEUMONIAE Not detected Not detected, (BEAKER) (test code = 3206) Equivocal MYCOPLASMA PNEUMONIAE Not detected Not detected, (BEAKER) (test code = 3207) Equivocal Other viruses and bacteria not targeted by this PCR panel cannot be excluded; therefore clinical correlation and follow up of serology, culture results, and other molecular studies is required. The results are not intended to be used as the sole means for clinical diagnosis or patient management decisions. This sample was tested at the [facility] using the BedyCasaArray Respiratory Panel. It is FDA cleared and has been verified and approved by the [facility] for clinical use on nasopharyngeal swab specimens.The performance of the FilmArrayRP has not been established in individuals who received influenza vaccine. Recent administration ofa nasal influenza vaccine may cause false positive results for Influenza A and/orInfluenza B.RAD, CHEST, 1 VIEW, NON [id number] 20:14:00 Reason for exam:->FEVERReason for exam:->GENERALIZED WEAKNESS, NOT ASSOCIATED WITH EXTREMITIESShould this be performed at the bedside?->YesFINAL REPORT RAD, CHEST, 1 VIEW, NON DEPT INDICATION: FEVERGENERALIZED WEAKNESS, NOT ASSOCIATED WITH EXTREMITIES COMPARISON: Prior day's exam FINDINGS: Portable frontal view of the chest. IMPRESSION: Support Lines: Interval intubation. ET tube tip is 3 cm superior to the dai. Lungs and pleura: Bilateral airspace disease is slightly increased in the interim suggestive of worsening edema, worsening infection and/or increased conspicuity of diffuse metastatic disease (if primary malignancy is present). No pneumothorax.Heart and mediastinum: Stable contours. Additional findings: None. Signed: Joi Pineda MDReport Verified Date/Time: 09/15/2019 20:14:26 Reading Location: [facility] Neuro Reading Room SARS-COV2/RT-PCR ([facility])2019-09-15 18:58:00 Test Item Value Reference Range Interpretation Comments SARS-COV2/RT-PCR (test code = Detected Not Detected, Negative A A [id number]) SARS-COV-2 PERFORMING LAB [facility] (test code = 4841574) Results are for the detection of SARS-CoV-2 RNA. The SARS-CoV-2 RNA is generally detectable in nasopharyngeal swab specimens during the acute phase of infection. Positive results are indicative of active infection with SARS-CoV-2; clinical correlation with patient history and other diagnostic information is necessary to determine patient infection status. Positive results do not rule out bacterial infection or co-infection with other viruses. The agent detected may not be the definite cause of disease. The limit of detection for this assay is 250 copies/mL.This SARS CoV-2 test is a rapid, gktp-qgvzJP-CFT test intended for the qualitative detection of nucleic acid from SARS-CoV-2 in a nasopharyngea l swab specimen collected from individuals suspected of COVID-19 by their healthcare provider.This test has not been Food and Drug Administration (FDA) cleared or approved and has been authorized by FDA under an Emergency Use Authorization (EUA). This EUA will be effective until the declaration that ci rcumstances exist justifying the authorization of the emergency use of in vitro diagnostic tests fordetection and/or diagnosis of COVID-19 is terminated under Section 564(b)(2) of the Act or the EUA is revoked under Section 564(g) of the Act.Fact Sheet for Healthcare Providers:https://www.[employer].com/ Documents/Xpert%20Xpress%20SARS%20CoV-2/Fact%20Sheets/3023802%74RQEE-JYX-2%20HE ALTHCARE%20PROVIDERS%20FACT%20SHEET.pdfFact Sheet for Healthcare Patients:https://www.[employer]/Documents/Xpert%20Xpress %20SARS%20CoV-2/Fact%20Sheets/3023801%38WYPM-PYA-6%20PATIENT%20FACT%20SHEET.pdf Performing Laboratory:[facility].[place], [place] [id number] 18:13:00 Test Item Value Reference Range Interpretation Comments PROCALCITONIN (BEAKER) (test code 0.19 ng/mL <0.05 H = 3036) SEPSIS RISK (ng/mL)Low: 0.05-0.50Intermediate: 0.51-2.00High: >=2.01TSH/FREE T4 IF [id number] 18:05:00 Test Item Value Reference Range Interpretation Comments THYROID STIMULATING HORMONE 0.641 uIU/mL 0.350-4.940 (BEAKER) (test code = 772) Shoe Laster ID - HANSA CCBC W/PLT COUNT & AUTO [id number] 17:50:00 Test Item Value Reference Range Interpretation Comments WHITE BLOOD CELL COUNT (BEAKER) 8.0 K/ L 3.5-10.5 (test code = 775) RED BLOOD CELL COUNT (BEAKER) 5.27 M/ L 4.63-6.08 (test code = 761) HEMOGLOBIN (BEAKER) (test code = 15.5 GM/DL 13.7-17.5 410) HEMATOCRIT (BEAKER) (test code = 44.5 % 40.1-51.0 411) MEAN CORPUSCULAR VOLUME (BEAKER) 84.4 fL 79.0-92.2 (test code = 753) MEAN CORPUSCULAR HEMOGLOBIN 29.4 pg 25.7-32.2 (BEAKER) (test code = 751) MEAN CORPUSCULAR HEMOGLOBIN CONC 34.8 GM/DL 32.3-36.5 (BEAKER) (test code = 752) RED CELL DISTRIBUTION WIDTH 12.6 % 11.6-14.4 (BEAKER) (test code = 412) PLATELET COUNT (BEAKER) (test 243 K/CU MM 150-450 code = 756) MEAN PLATELET VOLUME (BEAKER) 9.7 fL 9.4-12.4 (test code = 754) NUCLEATED RED BLOOD CELLS 1 /100 WBC 0-0 H (BEAKER) (test code = 413) (CELLAVISION MANUAL DIFF)2019-09-15 17:50:00 Test Item Value Reference Range Interpretation Comments NEUTROPHILS - REL 85 % (CELLAVISION)(BEAKER) (test code = 2816) LYMPHOCYTES - REL 5 % (CELLAVISION)(BEAKER) (test code = 2817) MONOCYTES - REL 6 % (CELLAVISION)(BEAKER) (test code = 2818) METAMYELOCYTES - REL 1 % 0-0 H (CELLAVISION)(BEAKER) (test code = 2821) BANDS - REL (CELLAVISION)(BEAKER) 1 % 0-10 (test code = 2826) ATYPICAL LYMPHOCYTES - REL 1 % 0-0 H (CELLAVISION)(BEAKER) (test code = 2829) NEUTROPHILS - ABS 6.80 K/ul 1.78-5.38 H (CELLAVISION)(BEAKER) (test code = 2830) LYMPHOCYTES - ABS 0.40 K/ul 1.32-3.57 L (CELLAVISION)(BEAKER) (test code = 2831) MONOCYTES - ABS 0.48 K/uL 0.30-0.82 (CELLAVISION)(BEAKER) (test code = 2832) METAMYELOCYTES - ABS 0.08 K/uL 0.00-0.00 H (CELLAVISION)(BEAKER) (test code = 2836) BANDS - ABS (CELLAVISION)(BEAKER) 0.08 K/uL 0.00-0.80 (test code = 2840) ATYPICAL LYMPHOCYTES - ABS 0.08 K/uL 0.00-0.00 H (CELLAVISION)(BEAKER) (test code = 2858) TOTAL COUNTED (BEAKER) (test code 100 = 1351) MANUAL NRBC PER 100 CELLS 3 /100 WBC 0-0 H (BEAKER) (test code = 1353) SMUDGE CELLS (BEAKER) (test code Present = 1371) GIANT PLATELETS (BEAKER) (test Present code = 313) PLASMACYTOID LYMPHS(BEAKER) (test Present code = 1677) POLYCHROMATOPHILLIC RBCS(BEAKER) 1+ few (test code = 478) ANISOCYTOSIS (BEAKER) (test code 2+ moderate = 961) MICROCYTES (BEAKER) (test code = 2+ moderate 965) POIKILOCYTES (BEAKER) (test code 2+ moderate = 966) ARTIFACT (CELLAVISION)(BEAKER) Present (test code = 3432) PLATELET CONCENTRATION Adequate (CELLAVISION)(BEAKER) (test code = 3438) Shoe Laster ID - jaymie Prado comments: Slide comments:RAD, CHEST, 1 VIEW, NON [id number] 17:49:00Reason for exam:->FEVERReason for exam:- >GENERALIZED WEAKNESS, NOT ASSOCIATED WITH EXTREMITIESFINAL REPORT TECHNIQUE: Frontal view of the chest. INDICATION: 74-year-old man with fever and generalized weakness. COMPARISON: Chest radiograph 11/09/2018. FINDINGS: LINES/TUBES: None. LUNGS: Central pulmonary venous congestion. Patchy bilateral airspace opacities. PLEURA: No pneumothorax or significant pleural effusion. HEART AND MEDIASTINUM: Prominent cardiac silhouette. Atherosclerotic calcifications in the thoracic aorta. SOFT TISSUES AND BONES: Unremarkable. IMPRESSION:Central pulmonary venous congestion with bilateral airspace opacities. Differential considerations include multifocal pneumonia and pulmonary edema. Signed: Christiano Mejia MDReport Verified Date/Time:09/15/2019 17:49:30 Reading Location: [address] Radiology Reading Room B-TYPE NATRIURETIC FACTOR (BNP)2019-09-15 17:45:00 Test Item Value Reference Range Interpretation Comments B-TYPE NATRIURETIC PEPTIDE (BEAKER) 514 pg/mL 0-100 H (test code = 700) Shoe Laster ID - HANSA CTROPONIN [id number] 17:45:00 Test Item Value Reference Range Interpretation Comments TROPONIN I (BEAKER) (test code = 0.11 ng/mL 0.00-0.03 H 397) Troponin I (TnI) levels must be interpreted in the context of the presenting symptoms and the clinical findings. Elevated TnI levels indicate myocardial damage, but are not specific for ischemic heart disease. Elevated TnI levels are seen in patients with other cardiac conditions (including myocarditis and congestive heart failure), and slight TnI elevations occur in patients with other conditions, including sepsis, renal failure, acidosis, acute neurological disease, and persistent tachyarrhythmia.Shoe Laster ID - HANSA [id number] 17:37:00 Test Item Value Reference Range Interpretation Comments PHOSPHORUS (BEAKER) (test code = 2.9 mg/dL 2.3-4.7 604) Shoe Laster ID - HANSA [id number] 17:37:00 Test Item Value Reference Range Interpretation Comments MAGNESIUM (BEAKER) (test code = 2.0 mg/dL 1.6-2.6 627) Shoe Laster ID - HANSA CBASIC METABOLIC [id number] 17:37:00 Test Item Value Reference Range Interpretation Comments SODIUM (BEAKER) 134 meq/L 136-145 L (test code = 381) POTASSIUM (BEAKER) 3.4 meq/L 3.5-5.1 L (test code = 379) CHLORIDE (BEAKER) 93 meq/L 98-107 L (test code = 382) CO2 (BEAKER) (test 27 meq/L 22-29 code = 355) BLOOD UREA NITROGEN 26 mg/dL 7-21 H (BEAKER) (test code = 354) CREATININE (BEAKER) 1.04 mg/dL 0.57-1.25 (test code = 358) GLUCOSE RANDOM 126 mg/dL 70-105 H (BEAKER) (test code = 652) CALCIUM (BEAKER) 8.0 mg/dL 8.4-10.2 L (test code = 697) EGFR (BEAKER) (test 70 mL/min/1.73 ESTIMA COCO GFR IS code = 1092) sq m NOT ACCURATE CREATININE CLEARANCE IN PREDICTING GLOMERULAR FILTRATION RATE . ESTIMATED GFR I S NOT APPLICABLE FOR DIALYSIS PATIEN TS. Shoe Laster ID - HANSA CLACTIC ACID, [id number] 17:25:00 Test Item Value Reference Range Interpretation Comments LACTATE BLOOD VENOUS 2.20 mmol/L 0.50-2.20 Specime n slightly (2) (BEAKER) (test hemolyzed code = 1909) Shoe Laster ID - DBBLOOD GAS, [id number] 17:22:00 Test Item Value Reference Range Interpretation Comments PH ARTERIAL (BEAKER) (test code = 7.51 7.35-7.45 H 383) PCO2 ARTERIAL (BEAKER) (test code 39 mmHg 35-45 = 384) PO2 ARTERIAL (BEAKER) (test code = 114 mmHg 80-90 H 385) O2 SATURATION ARTERIAL (BEAKER) 98.5 % 96.0-97.0 H (test code = 386) HCO3 ARTERIAL (BEAKER) (test code 30 mmol/L 21-29 H = 388) BASE EXCESS ARTERIAL (BEAKER) 7.0 mmol/L -2.0-3.0 H (test code = 387) PATIENT TEMPERATURE (BEAKER) (test 36.8 C code = 1818) FIO2 (BEAKER) (test code = 1819) 100.0 % RAD, CHEST, 2 [id number] 10:40:00Reason for Exam:->E22Ljflsf for Exam:- >J44.9Reason for Exam:->E78.5Reason for Exam:->I71.4Reason for Exam:- >E11.65Reason for Exam:->Z79.899Reason for Exam:->R09.89FINAL REPORT Chest, 2 views. Clinical History: I10J44.9E78.5I71.4E11.65Z79.899R09.89 Comparison Study: October 13, 2017 Findings: The heart and lungs are within normal limits. The pleural spaces are clear. Degenerative changes are seen. Impression: No active cardiopulmonary disease. Signed: Domingo Jeffries Verified Date/Time: 11/09/2018 10:40:00 Reading Location: [facility] Radiology Reading Room RAD, CHEST, 2 VIEWS 2017-10-13 13:57:00Reason for Exam:->Essential (primary) hypertension [I10] FINAL REPORT INDICATION: Essential (primary) hypertension [I10] COMPARISON: September 10, 2016 TECHNIQUE: Chest radiograph, two views, PA and lateral. FINDINGS / IMPRESSION:Lung volumes are normal and there is no evidence of pneumonia or pulmonary edema. No pneumothorax or pleural effusion is demonstrated. There is mild enlargement cardiac silhouette. Thoracic vertebral mild degenerative changes noted. Signed: Keyona Green Verified Date/Time: 10/13/2017 13:57:52 Reading Location: [address] Radiology Reading Room
[2021-06-04] MEDS ORDERED: METHYLPREDNISOLONE 125 MG INJ ONE ×2 (11:00→22:47)
--- NOTE | 2021-06-04 11:03 | EDPHYS ---
Physician Documentation [facility] Name: Marbin Freeman Age: 76 yrs Sex: Male : 1945 Arrival Date: 06/04/2021 Time: 10:08 Bed 18 Private MD: ED Physician Fredy Zurita HPI: 06/04 11:58 This 76 yrs old Male presents to ER via Wheelchair with complaints of Covid+, LowO2. jr8 11:58 The patient has shortness of breath at rest. Onset: The symptoms/episode began/occurred jr8 gradually. Duration: The symptoms are continuous. The patient's shortness of breath is aggravated by walking. Associated signs and symptoms: The patient has no apparent associated signs or symptoms. Severity of symptoms: At their worst the symptoms were moderate in the emergency department the symptoms are unchanged. The patient has experienced a previous episode. The patient has been recently seen by a physician:. Patient stated that he had COVID last year and was in the ICU intubated for 16 days and then sent to rehabilitation. Has been doing well up until this past week when he tested COVID-positive again. Patient stated that he started with mild symptoms but now having breathing difficulty. PCP had put him on steroids, hydroxychloroquine, Zithromax and has almost completed the entire regimen but now getting more short of breath especially with exertion. Patient in the 70s on room air upon arrival.. Historical: - Allergies: 10:19 No Known Allergies; louise - Home Meds: 10:19 metoprolol tartrate 50 mg Oral tab 1 tab 2 times per day [Active]; metformin 1,000 mg louise Oral tr24 1 tab 2 times per day [Active]; amiodarone 200 mg Oral tab 1 tab 2 times per day [Active]; losartan 50 mg oral tab 1 tab 2 times per day [Active]; rosuvastatin 10 mg oral tab 1 tab after meals and before bedtime [Active]; amlodipine 5 mg tab 2 tabs once daily [Active]; acetaminophen 500 mg Oral tab 2 tabs daily [Active]; - PMHx: 10:24 None; louise - PSHx: 10:24 None; louise - Immunization history:: Adult Immunizations up to date. - Social history:: Smoking status: Patient denies any tobacco usage or history of. ROS: 11:58 Eyes: Negative for injury, pain, redness, and discharge, ENT: Negative for injury, jr8 pain, and discharge, Neck: Negative for injury, pain, and swelling, Cardiovascular: Negative for chest pain, palpitations, and edema, Abdomen/GI: Negative for abdominal pain, nausea, vomiting, diarrhea, and constipation, Back: Negative for injury and pain, MS/Extremity: Negative for injury and deformity, Skin: Negative for injury, rash, and discoloration, Neuro: Negative for headache, weakness, numbness, tingling, and seizure. 11:58 Respiratory: Positive for dyspnea on exertion, shortness of breath. Exam: 11:58 Constitutional: This is a well developed, well nourished patient who is awake, alert, jr8 and in no acute distress. Cardiovascular: Regular rate and rhythm with a normal S1 and S2. No gallops, murmurs, or rubs. Normal PMI, no JVD. No pulse deficits. Abdomen/GI: Soft, non-tender, with normal bowel sounds. No distension or tympany. No guarding or rebound. No evidence of tenderness throughout. Back: No spinal tenderness. No costovertebral tenderness. Full range of motion. Skin: Warm, dry with normal turgor. Normal color with no rashes, no lesions, and no evidence of cellulitis. MS/ Extremity: Pulses equal, no cyanosis. Neurovascular intact. Full, normal range of motion. Neuro: Awake and alert, GCS 15, oriented to person, place, time, and situation. Cranial nerves II-XII grossly intact. Motor strength 5/5 in all extremities. Sensory grossly intact. 11:58 Respiratory: the patient does not display signs of respiratory distress, Respirations: tachypnea, that is mild, Breath sounds: rales, that are mild, are heard in the right posterior upper lobe and right posterior middle lobe, decreased breath sounds, that are mild, are heard in the right posterior upper lobe, right posterior middle lobe and right posterior lower lobe. Vital Signs: 10:15 BP 156 / 78; Pulse 76; Resp 20; Temp 98.1; Pulse Ox 96% on 10 lpm NC; Weight 120.2 kg; louise Height 6 ft. (182.88 cm); 19:08 BP 141 / 71; Pulse 64; Resp 25; Pulse Ox 88% ; mk 19:12 Pulse 76; Resp 18; Pulse Ox 92% on 15 lpm NC; mk 20:12 BP 170 / 88; Pulse 65; Resp 16; Pulse Ox 92% on 15 lpm NC; mk 21:00 BP 166 / 92; Pulse 66; Resp 28; Pulse Ox 93% on 15 lpm NC; mk 10:15 Body Mass Index 35.94 (120.20 kg, 182.88 cm) louise [place] Coma Score: 19:08 Eye Response: spontaneous(4). Verbal Response: oriented(5). Motor Response: obeys mk commands(6). Total: 15. 19:12 Eye Response: spontaneous(4). Verbal Response: oriented(5). Motor Response: obeys mk commands(6). Total: 15. MDM: 10:18 Patient medically screened. [facility] 11:58 Data reviewed: vital signs, nurses notes, lab test result(s), EKG, radiologic studies, [facility] CT scan, plain films. Data interpreted: Pulse oximetry: on room air is 78 %. Interpretation: hypoxia. Counseling: I had a detailed discussion with the patient and/or guardian regarding: the historical points, exam findings, and any diagnostic results supporting the discharge/admit diagnosis, lab results, radiology results, the need for further work-up and treatment in the hospital. 06/04 10:20 Order name: BMP 06/04 10:20 Order name: Blood Culture Adult (2) 06/04 10:20 Order name: C-Reactive Protein 06/04 10:20 Order name: CBC with Diff 06/04 10:20 Order name: D-Dimer; Complete Time: 11:18 06/04 10:20 Order name: Ferritin; Complete Time: 12:06/04 10:20 Order name: LFT's; Complete Time: 12:06/04 10:20 Order name: Lactate; Complete Time: 12:23 06/04 10:20 Order name: Lipase; Complete Time: 12:06/04 10:20 Order name: PT-INR; Complete Time: 11:18 06/04 10:20 Order name: Procalcitonin; Complete Time: 12:06/04 10:20 Order name: Ptt, Activated; Complete Time: 11:18 06/04 10:20 Order name: Troponin (emerg Dept Use Only); Complete Time: 12: 8 06/04 10:20 Order name: COVID-19 SARS RT PCR (Document "Date of Onset" if Symptomatic); Complete Time: 13:06/04 10:20 Order name: CXR XRAY; Complete Time: 12:23 8 06/04 10:20 Order name: EKG; Complete Time: 10: 8 06/04 10:21 Order name: Basic Metabolic Panel; Complete Time: 12: [facility] 06/04 10:21 Order name: Blood Culture [facility] 06/04 10:21 Order name: C-Reactive Protein; Complete Time: 12: [facility] 06/04 10:21 Order name: CBC with Automated Diff; Complete Time: 12: [facility] 06/04 12:02 Order name: CT Chest Wo Con; Complete Time: 13: [facility] 06/04 12:04 Order name: Manual Differential; Complete Time: 12: [facility] 06/04 14:58 Order name: CONS Physician Consult [facility] 06/04 18:14 Order name: Glucose, Ancillary Testing [facility] 06/04 19:57 Order name: Glucose, Ancillary Testing [facility] 06/04 22:05 Order name: C-Reactive Protein [facility] 06/04 22:05 Order name: Ferritin [facility] 06/04 10:20 Order name: Cardiac monitoring; Complete Time: : 8 06/04 10:20 Order name: Droplet/Contact Precautions; Complete Time: [facility] 06/04 10:20 Order name: EKG - Nurse/Tech; Complete Time: :06/04 10:20 Order name: IV Start; Complete Time: 06/04 10:20 Order name: Labs collected and sent; Complete Time: [facility] 06/04 10:20 Order name: O2 Per Protocol; Complete Time: 06/04 10:20 Order name: O2 Sat Monitoring; Complete Time: 06/04 10:20 Order name: Urine Dipstick-Ancillary (obtain specimen) Administered Medications: 11:02 Drug: SOLU-Medrol (methylPrednisoLONE) 125 mg Route: IVP; Site: left antecubital; louise 11:02 Follow up: Response: No adverse reaction 12:14 Drug: Rocephin (cefTRIAXone) 1 grams Route: IV; Rate: calculated rate; Site: left louise antecubital; 14:43 Follow up: Response: No adverse reaction; IV Status: Completed infusion louise 12:14 Drug: Zithromax (azithromycin) 500 mg Route: IVPB; Infused Over: 1 hrs; Site: left louise antecubital; 14:43 Follow up: Response: No adverse reaction; IV Status: Completed infusion louise Disposition: 06/05 07:08 Co-signature as Attending Physician, Fredy Zurita MD I agree with the assessment and rn plan of care. Attestation: The patient's history, exam findings, diagnostics, and a summary of any interventions or procedures was reviewed in detail with Booker JAY. Disposition Summary: 06/04/21 11:03 Hospitalization Ordered Hospitalization Status: Inpatient Admission jr8 Provider: Carter Zurita Condition: Stable jr8 Problem: new jr8 Symptoms: have improved jr8 Bed/Room Type: Standard [facility] Location: Telemetry/MedSurg (Inpatient)(06/04/21 21:27) Room Assignment: [facility](06/04/21 21:27) Diagnosis - Pneumonia due to SARS-associated coronavirus jr8 - SARS-associated coronavirus as the cause of diseases classified elsewhere jr8 - Acute respiratory failure with hypoxia jr8 Forms: - Medication Reconciliation Form jr8 - SBAR form jr8 Signatures: Dispatcher [employer] Nyla Castano RN RN Fredy Zurita MD MD rn Roszak, Josh, PA PA [facility] Krista Hagen RN RN Chapis Dunbar RN RN louise Corrections: (The following items were deleted from the chart) 06/04 12:00 11:58 Constitutional: This is a well developed, well nourished patient who is awake, jr8 alert, and in no acute distress. Cardiovascular: Regular rate and rhythm with a normal S1 and S2. No gallops, murmurs, or rubs. Normal PMI, no JVD. No pulse deficits. Abdomen/GI: Soft, non-tender, with normal bowel sounds. No distension or tympany. No guarding or rebound. No evidence of tenderness throughout. Back: No spinal tenderness. No costovertebral tenderness. Full range of motion. Skin: Warm, dry with normal turgor. Normal color with no rashes, no lesions, and no evidence of cellulitis. MS/ Extremity: Pulses equal, no cyanosis. Neurovascular intact. Full, normal range of motion. Neuro: Awake and alert, GCS 15, oriented to person, place, time, and situation. Cranial nerves II-XII grossly intact. Motor strength 5/5 in all extremities. Sensory grossly intact. [facility] 12:00 11:58 Respiratory: the patient does not display signs of respiratory distress, 8 Respirations: tachypnea, that is mild, Breath sounds: are clear throughout, [facility] 15:04 11:03 Telemetry/MedSurg (Inpatient) [facility] iw 15:04 11:03 [facility] : 15:04 [facility] ER HOLD [facility] : 15:04 ERHOLD- cg
--- NOTE | 2021-06-04 11:03 | ER ---
Nurse's Notes [facility] Name: Marbin Freeman Age: 76 yrs Sex: Male : 1945 Arrival Date: 06/04/2021 Time: 10:08 Bed 18 Private MD: Diagnosis: Pneumonia due to SARS-associated coronavirus;SARS-associated coronavirus as the cause of diseases classified elsewhere;Acute respiratory failure with hypoxia Presentation: 06/04 10:15 Chief complaint: Patient states: covid + low O2. Coronavirus screen: Vaccine status: louise Patient reports receiving the 2nd dose of the covid vaccine. Ebola Screen: Patient denies travel to an Ebola-affected area in the 21 days before illness onset. Initial Sepsis Screen: Does the patient meet any 2 criteria? RR > 20 per min. Does the patient have a suspected source of infection? No. Patient's initial sepsis screen is negative. Risk Assessment: Do you want to hurt yourself or someone else? Patient reports no desire to harm self or others. Onset of symptoms was June 04, 2021. 10:15 Method Of Arrival: Wheelchair louise 10:15 Acuity: ERIKA 3 louise Triage Assessment: 10:24 General: Appears in no apparent distress. Behavior is calm, cooperative. Pain: Denies louise pain. Historical: - Allergies: 10:19 No Known Allergies; louise - Home Meds: 10:19 metoprolol tartrate 50 mg Oral tab 1 tab 2 times per day [Active]; metformin 1,000 mg louise Oral tr24 1 tab 2 times per day [Active]; amiodarone 200 mg Oral tab 1 tab 2 times per day [Active]; losartan 50 mg oral tab 1 tab 2 times per day [Active]; rosuvastatin 10 mg oral tab 1 tab after meals and before bedtime [Active]; amlodipine 5 mg tab 2 tabs once daily [Active]; acetaminophen 500 mg Oral tab 2 tabs daily [Active]; - PMHx: 10:24 None; louise - PSHx: 10:24 None; louise - Immunization history:: Adult Immunizations up to date. - Social history:: Smoking status: Patient denies any tobacco usage or history of. Screenin:24 Abuse screen: Denies threats or abuse. Denies injuries from another. Nutritional louise screening: No deficits noted. Tuberculosis screening: No symptoms or risk factors identified. Fall Risk None identified. Assessment: 19:10 General: Appears in no apparent distress. Behavior is cooperative. Pain: Denies pain. mk Neuro: Level of Consciousness is awake, alert, obeys commands, Oriented to person, place, time, situation, Moves all extremities. Gait is steady, Speech is normal, Facial symmetry appears normal, Pupils are PERRLA. Cardiovascular: Denies chest pain, shortness of breath, Heart tones S1 S2 Capillary refill < 3 seconds fingers toes JVD is absent Patient's skin is warm and dry. Pulses are 2+ in right radial artery, right dorsalis pedis artery, left radial artery and left dorsalis pedis artery Edema Rhythm is regular. Respiratory: Airway is patent Trachea midline Respiratory effort is even, labored, Respiratory pattern is symmetrical, tachypnea Breath sounds are diminished. Respiratory: the patient has mild shortness of breath. GI: :. Derm: Skin is intact, is healthy with good turgor, Skin is dry, Skin temperature is warm. Musculoskeletal: Capillary refill < 3 seconds, Range of motion: intact in all extremities. Vital Signs: 10:15 BP 156 / 78; Pulse 76; Resp 20; Temp 98.1; Pulse Ox 96% on 10 lpm NC; Weight 120.2 kg; louise Height 6 ft. (182.88 cm); 19:08 BP 141 / 71; Pulse 64; Resp 25; Pulse Ox 88% ; mk 19:12 Pulse 76; Resp 18; Pulse Ox 92% on 15 lpm NC; mk 20:12 BP 170 / 88; Pulse 65; Resp 16; Pulse Ox 92% on 15 lpm NC; mk 21:00 BP 166 / 92; Pulse 66; Resp 28; Pulse Ox 93% on 15 lpm NC; mk 10:15 Body Mass Index 35.94 (120.20 kg, 182.88 cm) louise [place] Coma Score: 19:08 Eye Response: spontaneous(4). Verbal Response: oriented(5). Motor Response: obeys mk commands(6). Total: 15. 19:12 Eye Response: spontaneous(4). Verbal Response: oriented(5). Motor Response: obeys mk commands(6). Total: 15. ED Course: 10:08 Patient arrived in ED. mr 10:18 Booker Lowe PA is PHCP. jr8 10:18 Fredy Zurita MD is Attending Physician. jr8 10:19 Triage completed. louise 10:24 Arm band placed on. louise 10:24 Patient has correct armband on for positive identification. Bed in low position. louise 10:24 No provider procedures requiring assistance completed. louise 10:57 C-Reactive Protein Sent. louise 10:57 CBC with Automated Diff Sent. louise 10:57 Basic Metabolic Panel Sent. louise 10:57 Blood Culture Sent. louise 10:57 COVID-19 SARS RT PCR (Document "Date of Onset" if Symptomatic) Sent. louise 10:57 BMP Sent. louise 10:57 Blood Culture Adult (2) Sent. louise 10:57 C-Reactive Protein Sent. louise 10:57 CBC with Diff Sent. louise 10:57 CXR XRAY Sent. louise 10:57 D-Dimer Sent. louise 10:57 Ferritin Sent. louise 10:57 LFT's Sent. louise 10:57 Lactate Sent. louise 10:57 Lipase Sent. louise 10:57 PT-INR Sent. louise 10:57 Procalcitonin Sent. louise 10:57 Ptt, Activated Sent. louise 10:57 Troponin (emerg Dept Use Only) Sent. louise 11:00 CXR XRAY In Process Unspecified. EDMS 11:02 Carter Zurita MD is Hospitalizing Provider. jr8 12:33 CT Chest Wo Con In Process Unspecified. EDMS 19:21 Talya Bedoya, RN is Primary Nurse. mk Administered Medications: 11:02 Drug: SOLU-Medrol (methylPrednisoLONE) 125 mg Route: IVP; Site: left antecubital; louise 11:02 Follow up: Response: No adverse reaction louise 12:14 Drug: Rocephin (cefTRIAXone) 1 grams Route: IV; Rate: calculated rate; Site: left louise antecubital; 14:43 Follow up: Response: No adverse reaction; IV Status: Completed infusion louise 12:14 Drug: Zithromax (azithromycin) 500 mg Route: IVPB; Infused Over: 1 hrs; Site: left louise antecubital; 14:43 Follow up: Response: No adverse reaction; IV Status: Completed infusion louise Outcome: 11:03 Decision to Hospitalize by Provider. jr8 23:05 Patient left the ED. mk Signatures: Dispatcher [employer] [facility] Laury Becerril Josh, PA PA jr8 Chapis Dunbar, RN Talya Hale, MARCO haywood Corrections: (The following items were deleted from the chart) 23:05 19:12 BP 170 / 88; Pulse 65bpm; Resp 16bpm; Pulse Ox 92% 15 lpm Nasal Cannula; chastity haywood
[2021-06-04 11:08] LABS: Absolute Lymphocytes (CBC) 0.2 K/uL (0.7-4.9); Hematocrit 39.4 % (39.6-49.0); Lymphocytes % 1.1 % (15.3-44.8); MPV 7.2 fL (7.6-11.3)
[2021-06-04 11:14] LABS: Protime INR 1.09
[2021-06-04 11:33] LABS: Albumin 2.4 g/dL (3.4-5.0); Bilirubin Direct 0.2 mg/dL (0-0.2); Bilirubin Total 0.6 mg/dL (0.2-1.0); Ferritin 248.8 ng/mL (26-388); Potassium 3.6 mmol/L (3.5-5.1); Protein, Total 6.8 g/dL (6.4-8.2); Troponin (Emerg Dept Use Only) 0.05 ng/mL (0.0-0.045)
[2021-06-04 12:05] LABS: Blood Morphology Comment NOT SEEN (NOT SEEN); Platelet Estimate ADEQ; Toxic Granulation 1+
[2021-06-04] MEDS ORDERED: AZITHROMYCIN 500 MG INJ IVPB ONE (12:08)
[2021-06-04] MEDS ORDERED: NA CHLORIDE 0.9% 250 ML ONE (12:08)
[2021-06-04] MEDS ORDERED: CEFTRIAXONE 1000 MG/VIAL ONE (12:08)
--- NOTE | 2021-06-04 12:14 | RAD REPORT ---
EXAM DESCRIPTION: Petr Single View06/04/2021 11:00 am CLINICAL HISTORY: sob COMPARISON: none FINDINGS: Marked alveolar opacities right lung. Mild to moderate alveolar opacities left lung. Heart appears enlarged IMPRESSION: Bilateral pulmonary opacities right greater than left probably pneumonia. Asymmetric pul monary edema is another consideration
--- NOTE | 2021-06-04 12:42 | RAD REPORT ---
EXAM DESCRIPTION: CT - Thorax Wo Con CLINICAL HISTORY: Chest pain dyspnea COMPARISON: Chest Single View dated 06/04/2021 FINDINGS: There is quite extensive airspace opacification of the right lung seen in a small amount a irspace opacification seen in left lung. Small bilateral pleural effusions, larger on the right. No p neumothorax. A few mildly prominent lymph nodes in the mediastinum. No concerning bony finding. Abdominal aortic aneurysm with a stent in place noted in the upper abdome n. All CT scans are performed using dose optimization technique as appropriate and may include automated exposure control or mA/KV adjustment according to patient size. IMPRESSION: Alveolar bilateral pulmonary opacities, quite severe on the right noted with small bilat eral pleural effusions.This likely is related to pulmonary infection.
--- NOTE | 2021-06-04 15:01 | P.HP ---
Certification for Inpatient Patient admitted to: Inpatient With expected LOS: >2 Midnights Practitioner: I am a practitioner with admitting privileges, knowledge of patient current condition, hospital course, and medical plan of care. Services: Services provided to patient in accordance with Admission requirements found in Title 42 Section 412.3 of the Code of Federal Regulations Patient History Date of Service: 06/04/21 Reason for admission: Pneumonia, Covid History of Present Illness: 76-year-old male, PMH: NIDDM2, HTN, COVID pneumonia requiring intubation for ~18 days in early 2019. Presents to ED due to worsening SOB, cough, not feeling well over the last ~7 days. Spoke with one of his physicians and was prescribed prednisone, hydroxychloroquine and some "medication like Benadryl" to dry him out. He reports worsening symptoms and oxygen saturation down to the mid 70s when he checked himself at home with a pulse oximeter. On presentation to the ED, he was noted to be hypoxic, chest x-ray was significant right pulmonary opacities, bilateral pulmonary opacities, positive for Covid. CT scan was obtained which again noted bilateral opacities, significantly worse on the right. At time of my examination, patient was breathing more comfortably on 10 L nasal cannula, SPO2: 90%. Patient states he had Covid in early 2019, required mechanical ventilation for 18 days. He has since also gotten his vaccinations. Allergies No Known Allergies Allergy (Unverified 06/04/21 12:42) - Past Medical/Surgical History -: Hypertension -: DM2, [id number] -: Peripheral vascular disease -: Aortobifem bypass - Family History Family History: Reviewed- Non-Contributory - Social History Smoking Status: Former smoker (quit in 80s) Alcohol use: Yes Place of Residence: Home Review of Systems 10-point ROS is otherwise unremarkable Physical Examination - Physical Exam General: Alert, In no apparent distress, Oriented x3 HEENT: Sclerae nonicteric Respiratory: Diminished, Crackles/rales (R > L) Cardiovascular: Regular rate/rhythm, Edema (1+ b/l to ankles) Gastrointestinal: Soft and benign, Non-distended, No tenderness Musculoskeletal: No tenderness Integumentary: No rashes, No significant lesion Neurological: Normal speech, Normal strength at 5/5 x4 extr, Normal affect - Studies Laboratory Data (last 24 hrs) 06/04/21 10:35: PT 12.6 H, INR 1.09, APTT 24.2 L 06/04/21 10:35: WBC 13.70 H, Hgb 12.8 L, Hct 39.4 L, Plt Count 294 06/04/21 10:35: Sodium 140, Potassium 3.6, BUN 38 H, Creatinine 2.27 H, Glucose 122 H, Total Bilirubin 0.6, AST 39 H, ALT 53, Alkaline Phosphatase 87, Lipase 127 Assessment and Plan - Advance Directives Does patient have a Living Will: No Does patient have a Durable POA for Healthcare: No Physician Review Additional Text: Problem list Acute Hypoxemic Respiratory failure secondary to COVID-19 pneumonia Possible community-acquired pneumonia Kox-wcgvlnq-cyiorrgby diabetes mellitus type 2 Hypertension Peripheral artery diseasefemoral bypass Bilateral pulmonary opacities, significantly worse on the right, concerning for possible bacterial etiology Continue empiric treatment for community-acquired pneumonia Steroids, oxygen supplementation, DVT prophylaxis for possible COVID-19 infection Patient had COVID-19 pneumonia in early 2019, requiring ventilatory support Pulmonology consulted Currently on 10 L nasal cannula Insulin sliding scale, may need long-acting insulin, suspect patient will have some steroid-induced hyperglycemia Confirm home medications restart antihypertensives as appropriate VTE: Eliquis Code: Full Dispo: Anticipate discharge home in 3-4 days Time Spent Managing Pts Care (In Minutes): 60
[2021-06-04] MEDS ORDERED: LIDOCAINE 1% MPF 5 ML VIAL ONE (16:48)
[2021-06-04] MEDS ORDERED: ALBUTEROL 2.5 MG/3 ML NEB SOL NEB PRN (19:40)
[2021-06-04] MEDS ORDERED: ONDANSETRON 4 MG/2 ML VIAL IV PRN (19:40)
[2021-06-04] MEDS ORDERED: Levofloxacin 750mg IV 750 MG/150 ML BAG IV ONE ×2 (20:00→22:47)
[2021-06-04] MEDS: METHYLPREDNISOLONE 40 MG INJ IV SCH (21:00)
[2021-06-04] MEDS: APIXABAN 2.5 MG TABLET PO SCH (21:00)
[2021-06-04] MEDS: INSULIN -REGULAR HUMAN 50 UNIT/0.5 ML ML SQ SCH (21:00)
[2021-06-04 22:05] LABS: Ferritin 222.4 ng/mL (26-388)
--- NOTE | 2021-06-04 22:21 | P.CNS ---
Date of Consult: 06/04/21 Reason for Consult: MAURIZIO/ CKD Requesting Physician: Carter Zurita Chief Complaint: Pneumonia, Covid History of Present Illness: 76 yo WM DM, HTN presented to the ER with 7 days of moderate, progressive dyspnea with associated hypoxia. Reports aggressive BC powder in the past but now only takes it every three days. Denies NSAIDs. No difficulty with urination. 76-year-old male, PMH: NIDDM2, HTN, COVID pneumonia requiring intubation for ~18 days in early 2019. Presents to ED due to worsening SOB, cough, not feeling well over the last ~7 days. Spoke with one of his physicians and was prescribed prednisone, hydroxychloroquine and some "medication like Benadryl" to dry him out. He reports worsening symptoms and oxygen saturation down to the mid 70s when he checked himself at home with a pulse oximeter. On presentation to the ED, he was noted to be hypoxic, chest x-ray was significant right pulmonary opacities, bilateral pulmonary opacities, positive for Covid. CT scan was obtained which again noted bilateral opacities, significantly worse on the right. At time of my examination, patient was breathing more comfortably on 10 L nasal cannula, SPO2: 90%. Patient states he had Covid in early 2019, required mechanical ventilation for 18 days. He has since also gotten his vaccinations. Allergies No Known Allergies Allergy (Unverified 06/04/21 12:42) Home medications list reviewed: Yes Home Medications: Acetaminophen [Tylenol Extra Strength] 500 mg PO BIDP PRN 06/05/21 Amiodarone HCl [Cordarone Tab] 200 mg PO BID 06/05/21 Amlodipine [Norvasc] 10 mg PO DAILY 06/05/21 Losartan Potassium 50 mg PO BID 06/05/21 Metformin HCl 1,000 mg PO BID 06/05/21 Metoprolol Tartrate 50 mg PO BID 06/05/21 Rosuvastatin [Crestor] 10 mg PO BEDTIME 06/05/21 - Past Medical/Surgical History -: Hypertension -: DM2, [id number] -: Peripheral vascular disease -: Aortobifem bypass - Social History Alcohol use: Yes Place of Residence: Home Review of Systems 10-point ROS is otherwise unremarkable General: Weakness, Malaise Cardiovascular: Edema Neurological: Weakness Physical Examination General: Oriented x3, Cooperative HEENT: Atraumatic Neck: Supple Respiratory: Normal air movement Cardiovascular: Regular rate/rhythm, Edema Gastrointestinal: Soft and benign, No guarding Musculoskeletal: No clubbing, No contractures Integumentary: No rashes, No cyanosis Neurological: Normal speech Laboratory Data (last 24 hrs) 06/04/21 10:35: PT 12.6 H, INR 1.09, APTT 24.2 L 06/04/21 10:35: WBC 13.70 H, Hgb 12.8 L, Hct 39.4 L, Plt Count 294 06/04/21 10:35: Sodium 140, Potassium 3.6, BUN 38 H, Creatinine 2.27 H, Glucose 122 H, Total Bilirubin 0.6, AST 39 H, ALT 53, Alkaline Phosphatase 87, Lipase 127 Imagings Data: EXAM DESCRIPTION: CT - Thorax Wo Con CLINICAL HISTORY: Chest pain dyspnea COMPARISON: Chest Single View dated 06/04/2021 FINDINGS: There is quite extensive airspace opacification of the right lung see n in a small amount airspace opacification seen in left lung. Small bilateral pleural effusions, larger on the right. No pneumothorax. A few mildly prominent lymph nodes in the mediastinum. No concerning bony finding. Abdominal aortic aneurysm with a stent in place noted in the upper abdomen. All CT scans are performed using dose optimization technique as appropriate and may include automated exposure control or mA/KV adjustment according to patient size. IMPRESSION: Alveolar bilateral pulmonary opacities, quite severe on the right noted with small bilateral pleural effusions.This likely is related to pulmonary infection. EXAM DESCRIPTION: [facility] Single View06/04/2021 11:00 a CLINICAL HISTORY: sob COMPARISON: none FINDINGS: Marked alveolar opacities right lung. Mild to moderate alveolar opacities left lung. Heart appears enlarged IMPRESSION: Bilateral pulmonary opacities right greater than left probably pneumonia. Asymmetric pulmonary edema is another consideration Conclusions/Impression: MAURIZIO vs CKD CKD with proteinuria. Unclear CKD baseline. -No NSAIDs HTN with CKD -Continue Amlodipine -Continue Losartan -Continue Metoprolol LE Edema -Low sodium diet -Consider diuretic therapy -Consider an echocardiogram DM II with CKD -RISS Moderate malnutrition -Start Nepro COVID-19 PNA Acute hypoxic respiratory failure -Continue Levaquin -Continue steroids -Continue Nebs -Continue Oxygen supplementation Thank you kindly for the consultation.
[2021-06-04] MEDS ORDERED: APIXABAN 5 MG TABLET ONE (22:47)
[2021-06-05] MEDS: APIXABAN 2.5 MG TABLET PO SCH ×3 (00:16→21:13)
[2021-06-05] MEDS: INSULIN -REGULAR HUMAN 50 UNIT/0.5 ML ML SQ SCH ×5 (00:16→21:00)
[2021-06-05] MEDS: METHYLPREDNISOLONE 40 MG INJ IV SCH ×2 (00:16→09:48)
[2021-06-05 06:42] LABS: Absolute Lymphocytes (CBC) 0.3 K/uL (0.7-4.9); MPV 7.1 fL (7.6-11.3); RBC Red Blood Cell Count 4.54 M/uL (4.33-5.43)
[2021-06-05 07:10] LABS: Albumin 2.2 g/dL (3.4-5.0); Bilirubin Total 0.5 mg/dL (0.2-1.0); Magnesium 2.5 mg/dL (1.8-2.4); Phosphorus 4.8 mg/dL (2.5-4.9); Potassium 3.7 mmol/L (3.5-5.1); Protein, Total 6.5 g/dL (6.4-8.2); Uric Acid 8.1 mg/dL (3.5-7.2)
[2021-06-05 07:42] VITALS: BMI 35.9
[2021-06-05] MEDS ORDERED: POTASSIUM CL SA 10 MEQ TAB PO ONE (09:00)
[2021-06-05] MEDS: NEPRO SHAKE 237 ML CAN PO SCH ×3 (09:00→21:00)
--- NOTE | 2021-06-05 12:32 | P.CNS ---
Date of Consult: 06/05/21 Reason for Consult: Community-acquired pneumonia Chief Complaint: Pneumonia, Covid History of Present Illness: Patient is 76 years of age she has had severe COVID and was on a ventilator in the ICU for 3 weeks to the emergency room has been sick for the past 7 days shortness of breath cough apparently he was prescribed some prednisone and hydroxychloroquine but he did not improve currently he is stable to have extensive right-sided opacity with low oxygen saturation he is doing well currently Allergies No Known Allergies Allergy (Unverified 06/04/21 12:42) Home Medications: Acetaminophen [Tylenol Extra Strength] 500 mg PO BIDP PRN 06/05/21 Amiodarone HCl [Cordarone Tab] 200 mg PO BID 06/05/21 Amlodipine [Norvasc] 10 mg PO DAILY 06/05/21 Losartan Potassium 50 mg PO BID 06/05/21 Metformin HCl 1,000 mg PO BID 06/05/21 Metoprolol Tartrate 50 mg PO BID 06/05/21 Rosuvastatin [Crestor] 10 mg PO BEDTIME 06/05/21 - Past Medical/Surgical History Diabetic: Yes -: Hypertension -: DM2, [id number] -: Peripheral vascular disease -: Aortobifem bypass - Social History Alcohol use: Yes CD- Drugs: No Caffeine use: Yes Place of Residence: Home Review of Systems 10-point ROS is otherwise unremarkable General: Weakness Respiratory: Cough, Shortness of Breath Physical Examination Temp Pulse Resp BP Pulse Ox 97.7 F 72 18 147/67 H 92 06/05/21 11:13 06/05/21 11:13 06/05/21 11:13 06/05/21 11:13 06/05/21 11:13 General: Alert, In no apparent distress, Oriented x3 - Problems (1) Severe pneumonia Current Visit: Yes Status: Acute Plan: Age 76 with prior history of coronavirus pneumonia admitted with shortness of breath and cough in addition to hypoxemia he is got a symmetric distribution of infiltrate predominantly on the left side atypical for coronavirus pneumonia he has already had coronavirus pneumonia before probably community-acquired pneumonia agree with levofloxacin can change to p.o. he is stable he is requiring high concentrations of oxygen continue with steroid renal failure is little better white count is declining change to oral dexamethasone continue to wean down on his oxygen
[2021-06-05 14:48] LABS: Urine Appearance CLEAR (Clear); Urine Bilirubin NEGATIVE (Negative); Urine Blood NEGATIVE (Negative); Urine Color YELLOW (Yellow); Urine Glucose NEGATIVE (Negative); Urine Protein NEGATIVE (Negative); Urine Urobilinogen 0.2 mg/dL (0.2-1.0); Urine pH 5.5 (5.0-7.0)
[2021-06-05 14:49] LABS: Urine Microscopic Reflex NO UMIC
[2021-06-05 14:56] LABS: UR PROTEIN 31.9 mg/dL (<11.9); Urine Protein/Creatinine Ratio 0.27 ratio (<0.15)
--- NOTE | 2021-06-05 18:16 | P.PN ---
Subjective Date of Service: 06/05/21 Chief Complaint: Pneumonia, Covid Patient requiring up to 10 L of oxygen by nasal cannula. He reports intermittent shortness of breath. Physical Examination - Vital Signs Temperature: 98.6 F Blood Pressure: 172/85 Pulse: 78 Respirations: 18 Pulse Ox (%): 91 - Physical Exam General: Alert, In no apparent distress, Oriented x3 HEENT: Mucous membr. moist/pink Neck: JVD not distended Respiratory: Other (Nonlabored breathing) Cardiovascular: No edema, Regular rate/rhythm, Normal S1 S2 Gastrointestinal: Soft and benign, Non-distended Musculoskeletal: No swelling, No tenderness Integumentary: No rashes, No cyanosis Neurological: Normal strength at 5/5 x4 extr Assessment And Plan - Plan Problem list Acute Hypoxemic Respiratory failure secondary to COVID-19 pneumonia Possible community-acquired pneumonia Mmc-apumxsk-lmzdzrzam diabetes mellitus type 2 Hypertension Peripheral artery diseasefemoral bypass Chronic atrial fibrillation. Bilateral pulmonary opacities, significantly worse on the right, concerning for possible bacterial etiology Continue empiric treatment for community-acquired pneumonia Steroids, oxygen supplementation. Patient seen by pulmonary. Currently on 10 L nasal cannula Continue insulin sliding scale for glucose management. Resume home medications for hypertension and A. fib. Patient is on Eliquis.
--- NOTE | 2021-06-05 20:17 | P.PN ---
Date of Service: 06/05/21 Vital Signs Temp Pulse Resp BP Pulse Ox 98 F 76 19 172/81 H 92 06/05/21 20:00 06/05/21 20:00 06/05/21 20:00 06/05/21 20:00 06/05/21 20:00 Medications Albuterol Sulfate (Albuterol 2.5 Mg/3 Ml Neb [place]) 2.5 mg NEB Q6HP PRN PRN Reason: SHORTNESS OF BREATH Amiodarone HCl (Amiodarone Hcl 200 Mg Tab) 200 mg PO BID [facility] Amlodipine Besylate (Amlodipine 10 Mg Tab) 10 mg PO DAILY [facility] Apixaban (Apixaban 2.5 Mg Tablet) 2.5 mg PO BID [facility] Last Admin: 06/05/21 09:48 Dose: 2.5 mg Documented by: Dexamethasone (Dexamethasone 4 Mg Tab) 4 mg PO BID [facility] Enteral Nutritional Formula (Nepro Shake 237 Ml Can) 240 ml PO TID [facility] Last Admin: 06/05/21 13:32 Dose: Not Given Documented by: Insulin Human Regular (Insulin -Regular Human 50 Unit/0.5 Ml Ml) 0 unit SQ ACHS [facility]; Protocol Last Admin: 06/05/21 17:05 Dose: 3 unit Documented by: Levofloxacin (Levofloxacin 500 Mg Tab) 500 mg PO DAILY [facility]; Protocol Losartan Potassium (Losartan Potassium 50 Mg Tablet) 50 mg PO BID [facility] Metoprolol Tartrate (Metoprolol Tar 50 Mg Tab) 50 mg PO BID [facility] Ondansetron HCl (Ondansetron 4 Mg/2 Ml Vial) 4 mg IV Q6HP PRN PRN Reason: NAUSEA / VOMITING Rosuvastatin Calcium (Rosuvastatin 10 Mg Tab) 10 mg PO BEDTIME [facility] Sodium Chloride (Flush Normal Saline 10 Ml) 10 ml IV BID [facility] Last Admin: 06/05/21 09:48 Dose: 10 ml Documented by: Microbiology Results 06/04/21 11:00 Blood - Blood Aerobic Blood Culture - Preliminary No growth in 24 hours. 06/04/21 11:00 Blood - Blood Anaerobic Blood Culture - Preliminary No growth in 24 hours. 06/04/21 10:35 Blood - Blood Aerobic Blood Culture - Preliminary No growth in 24 hours. 06/04/21 10:35 Blood - Blood Anaerobic Blood Culture - Preliminary No growth in 24 hours. Assessment/ Plan: Nephrology Improving dyspnea No chest pain No acute events overnight Vitals, medications, blood work and imaging reviewed in the chart General: Oriented x3, Cooperative HEENT: Atraumatic Neck: Supple Respiratory: Normal air movement Cardiovascular: Regular rate/rhythm, Hip & LE Edema Gastrointestinal: Soft and benign, No guarding Musculoskeletal: No clubbing, No contractures Integumentary: No rashes, No cyanosis Neurological: Normal speech Laboratory Data (last 24 hrs) 06/04/21 10:35: PT 12.6 H, INR 1.09, APTT 24.2 L 06/04/21 10:35: WBC 13.70 H, Hgb 12.8 L, Hct 39.4 L, Plt Count 294 06/04/21 10:35: Sodium 140, Potassium 3.6, BUN 38 H, Creatinine 2.27 H, Glucose 122 H, Total Bilirubin 0.6, AST 39 H, ALT 53, Alkaline Phosphatase 87, Lipase 127 Imagings Data: EXAM DESCRIPTION: CT - Thorax Wo Con CLINICAL HISTORY: Chest pain dyspnea COMPARISON: Chest Single View dated 06/04/2021 FINDINGS: There is quite extensive airspace opacification of the right lung seen in a small amount airspace opacification seen in left lung. Small bilateral pleural effusions, larger on the right. No pneumothorax. A few mildly prominent lymph nodes in the mediastinum. No concerning bony finding. Abdominal aortic aneurysm with a stent in place noted in the upper abdomen. All CT scans are performed using dose optimization technique as appropriate and may include automated exposure control or mA/KV adjustment according to patient size. IMPRESSION: Alveolar bilateral pulmonary opacities, quite severe on the right noted with small bilateral pleural effusions.This likely is related to pulmonary infection. EXAM DESCRIPTION: RADChest Single View06/04/2021 11:00 a CLINICAL HISTORY: sob COMPARISON: none FINDINGS: Marked alveolar opacities right lung. Mild to moderate alveolar opacities left lung. Heart appears enlarged IMPRESSION: Bilateral pulmonary opacities right greater than left probably pneumonia. Asymmetric pulmonary edema is another consideration Conclusions/Impression: MAURIZIO vs CKD CKD with proteinuria. Unclear CKD baseline. -No NSAIDs HTN with CKD -Continue Amlodipine -Continue Losartan -Continue Metoprolol LE Edema -Low sodium diet -Consider diuretic therapy -Consider an echocardiogram DM II with CKD -RISS Moderate malnutrition -Continue Nepro COVID-19 PNA Acute hypoxic respiratory failure -Continue Levaquin -Continue steroids -Continue Nebs -Continue Oxygen supplementation
[2021-06-05] MEDS: METOPROLOL TAR 50 MG TAB PO SCH (21:13)
[2021-06-05] MEDS: dexAMETHasone 4 MG TAB PO SCH (21:14)
[2021-06-05] MEDS: AMIODARONE HCL 200 MG TAB PO SCH (21:14)
[2021-06-05] MEDS: LOSARTAN POTASSIUM 50 MG TABLET PO SCH (21:14)
[2021-06-05] MEDS: ROSUVASTATIN 10 MG TAB PO SCH (21:14)
[2021-06-06 06:51] LABS: Absolute Lymphocytes (CBC) 0.3 K/uL (0.7-4.9); Hematocrit 39.4 % (39.6-49.0); Lymphocytes % 1.5 % (15.3-44.8); MPV 7.1 fL (7.6-11.3); RBC Red Blood Cell Count 4.52 M/uL (4.33-5.43)
[2021-06-06] MEDS: INSULIN -REGULAR HUMAN 50 UNIT/0.5 ML ML SQ SCH ×4 (07:30→20:20)
[2021-06-06 07:53] LABS: Albumin 2.2 g/dL (3.4-5.0); Bilirubin Total 0.5 mg/dL (0.2-1.0); Potassium 3.8 mmol/L (3.5-5.1); Protein, Total 6.4 g/dL (6.4-8.2); Uric Acid 7.2 mg/dL (3.5-7.2)
--- NOTE | 2021-06-06 07:53 | EKG ---
Test Date: 2021-06-04 Test Time: 10:43:21 Web Production Designer: SHERIN MEASUREMENT RESULTS: Intervals: Rate: 68 NH: 232 QRSD: 96 QT: 472 QTc: 501 [place]: P: 63 NH: 232 QRS: 57 T: 37 INTERPRETIVE STATEMENTS: Sinus rhythm with 1st degree AV block Prolonged QT Abnormal ECG Compared to ECG 06/04/2021 10:42:12 No significant changes Electronically Signed On 06-06-21 07:46:20 PSYCHIATRIC NURSE by Homer Carrington
--- NOTE | 2021-06-06 07:54 | EKG ---
Test Date: 2021-06-04 Test Time: 10:42:12 Set Off Press Operator: SHERIN MEASUREMENT RESULTS: Intervals: Rate: 69 TN: 236 QRSD: 100 QT: 458 QTc: 490 [place]: P: 71 TN: 236 QRS: 60 T: 41 INTERPRETIVE STATEMENTS: Sinus rhythm with 1st degree AV block Prolonged QT Abnormal ECG No previous ECG available for comparison Electronically Signed On 06-06-21 07:46:21 BULK PLANT OPERATOR by Homer Carrington
[2021-06-06] MEDS: LOSARTAN POTASSIUM 50 MG TABLET PO SCH ×2 (08:55→20:21)
[2021-06-06] MEDS: AMIODARONE HCL 200 MG TAB PO SCH ×2 (08:55→20:21)
[2021-06-06] MEDS: APIXABAN 2.5 MG TABLET PO SCH ×2 (08:55→20:21)
[2021-06-06] MEDS: AMLODIPINE 10 MG TAB PO SCH (08:55)
[2021-06-06] MEDS: METOPROLOL TAR 50 MG TAB PO SCH ×2 (08:56→20:21)
[2021-06-06] MEDS: dexAMETHasone 4 MG TAB PO SCH ×2 (08:56→20:21)
[2021-06-06] MEDS: NEPRO SHAKE 237 ML CAN PO SCH ×3 (09:00→20:22)
[2021-06-06] MEDS ORDERED: levoFLOXacin 500 MG TAB PO SCH (09:00)
[2021-06-06] MEDS ORDERED: levoFLOXacin 750 MG TAB PO SCH (09:00)
[2021-06-06] MEDS ORDERED: AMILORIDE HCL 5 MG TABLET PO ONE (10:15)
[2021-06-06] MEDS ORDERED: METOLAZONE 5 MG TABLET PO ONE (10:15)
[2021-06-06] MEDS: levoFLOXacin 750 MG TAB PO SCH (12:26)
[2021-06-06] MEDS ORDERED: FUROSEMIDE 20 MG/ 2ML VIAL IV ONE (12:49)
--- NOTE | 2021-06-06 12:50 | P.PN ---
Subjective Date of Service: 06/06/21 Chief Complaint: Pneumonia, Covid No change still continues to experience significant amount of respiratory distress at time he still requiring high concentrations of oxygen Review of Systems General: Weakness Respiratory: Shortness of Breath Physical Examination - Vital Signs Temperature: 98.2 F Blood Pressure: 149/64 Pulse: 64 Respirations: 24 Pulse Ox (%): 93 - Physical Exam General: Alert, Oriented x3, Cooperative Assessment & Plan - Problems (Diagnosis) (1) Severe pneumonia Current Visit: Yes Status: Acute Plan: Admitted with respiratory failure from coronavirus prior history of COVID renal function is improved currently on 15 L of oxygen with sat of 93% however at some repeat chest x-ray
--- NOTE | 2021-06-06 16:17 | P.PN ---
Subjective Date of Service: 06/06/21 Chief Complaint: Pneumonia, Covid Patient's oxygen requirement increased to 15 L by nasal cannula He has no other complaints. Physical Examination - Vital Signs Temperature: 98.2 F Blood Pressure: 149/64 Pulse: 64 Respirations: 24 Pulse Ox (%): 93 - Physical Exam General: Alert, In no apparent distress, Obese HEENT: Mucous membr. moist/pink Neck: JVD not distended Respiratory: Crackles/rales (Bilateral lungs) Cardiovascular: No edema, Regular rate/rhythm, Normal S1 S2 Gastrointestinal: Soft and benign, Non-distended, No tenderness Musculoskeletal: No swelling Integumentary: No rashes, No erythema, No cyanosis Neurological: Normal speech, Normal strength at 5/5 x4 extr Assessment And Plan - Plan Problem list Acute Hypoxemic Respiratory failure secondary to COVID-19 pneumonia Possible community-acquired pneumonia Jmo-qcmbglu-zsmkniqcy diabetes mellitus type 2 Hypertension Peripheral artery diseasefemoral bypass Chronic atrial fibrillation. Bilateral pulmonary opacities, significantly worse on the right, concerning for possible bacterial etiology Continue empiric treatment for community-acquired pneumonia. Continue steroids for COVID pneumonia. Patient given a dose of IV Lasix today. Titrate oxygen Pulmonary is following. Immunomodulator as per pulmonary. Continue insulin sliding scale for glucose management. Continue home medications for hypertension and A. fib. Continue Eliquis.
[2021-06-06] MEDS ORDERED: Levofloxacin 750mg IV 750 MG/150 ML BAG IV SCH (20:00)
[2021-06-06] MEDS: ROSUVASTATIN 10 MG TAB PO SCH (20:21)
--- NOTE | 2021-06-06 20:35 | P.PN ---
Date of Service: 06/06/21 Vital Signs Temp Pulse Resp BP Pulse Ox 98.2 F 64 24 H 135/65 93 06/06/21 16:17 06/06/21 20:21 06/06/21 16:17 06/06/21 20:21 06/06/21 16:17 Medications Albuterol Sulfate (Albuterol 2.5 Mg/3 Ml Neb Ana Rosa) 2.5 mg NEB Q6HP PRN PRN Reason: SHORTNESS OF BREATH Amiodarone HCl (Amiodarone Hcl 200 Mg Tab) 200 mg PO BID [facility] Last Admin: 06/06/21 20:21 Dose: 200 mg Documented by: Amlodipine Besylate (Amlodipine 10 Mg Tab) 10 mg PO DAILY [facility] Last Admin: 06/06/21 08:55 Dose: 10 mg Documented by: Apixaban (Apixaban 2.5 Mg Tablet) 2.5 mg PO BID [facility] Last Admin: 06/06/21 20:21 Dose: 2.5 mg Documented by: Dexamethasone (Dexamethasone 4 Mg Tab) 4 mg PO BID [facility] Last Admin: 06/06/21 20:21 Dose: 4 mg Documented by: Enteral Nutritional Formula (Nepro Shake 237 Ml Can) 240 ml PO TID [facility] Last Admin: 06/06/21 20:22 Dose: 240 ml Documented by: Insulin Human Regular (Insulin -Regular Human 50 Unit/0.5 Ml Ml) 0 unit SQ ACHS [facility]; Protocol Last Admin: 06/06/21 20:20 Dose: 3 unit Documented by: Levofloxacin (Levofloxacin 750 Mg Tab) 750 mg PO Q48H [facility]; Protocol Last Admin: 06/06/21 12:26 Dose: 750 mg Documented by: Losartan Potassium (Losartan Potassium 50 Mg Tablet) 50 mg PO BID [facility] Last Admin: 06/06/21 20:21 Dose: 50 mg Documented by: Metoprolol Tartrate (Metoprolol Tar 50 Mg Tab) 50 mg PO BID [facility] Last Admin: 06/06/21 20:21 Dose: 50 mg Documented by: Ondansetron HCl (Ondansetron 4 Mg/2 Ml Vial) 4 mg IV Q6HP PRN PRN Reason: NAUSEA / VOMITING Rosuvastatin Calcium (Rosuvastatin 10 Mg Tab) 10 mg PO BEDTIME [facility] Last Admin: 06/06/21 20:21 Dose: 10 mg Documented by: Sodium Chloride (Flush Normal Saline 10 Ml) 10 ml IV BID [facility] Last Admin: 06/06/21 20:21 Dose: 10 ml Documented by: Microbiology Results 06/04/21 11:00 Blood - Blood Aerobic Blood Culture - Preliminary No growth in 24 hours. 06/04/21 11:00 Blood - Blood Anaerobic Blood Culture - Preliminary No growth in 24 hours. 06/04/21 10:35 Blood - Blood Aerobic Blood Culture - Preliminary No growth in 24 hours. 06/04/21 10:35 Blood - Blood Anaerobic Blood Culture - Preliminary No growth in 24 hours. Assessment/ Plan: Nephrology Improving dyspnea No chest pain Malaise and weakness No acute events overnight Vitals, medications, blood work and imaging reviewed in the chart General: Oriented x3, Cooperative HEENT: Atraumatic Neck: Supple Respiratory: Normal air movement Cardiovascular: Regular rate/rhythm, Hip & LE Edema Gastrointestinal: Soft and benign, No guarding Musculoskeletal: No clubbing, No contractures Integumentary: No rashes, No cyanosis Neurological: Normal speech Laboratory Data (last 24 hrs) 06/04/21 10:35: PT 12.6 H, INR 1.09, APTT 24.2 L 06/04/21 10:35: WBC 13.70 H, Hgb 12.8 L, Hct 39.4 L, Plt Count 294 06/04/21 10:35: Sodium 140, Potassium 3.6, BUN 38 H, Creatinine 2.27 H, Glucose 122 H, Total Bilirubin 0.6, AST 39 H, ALT 53, Alkaline Phosphatase 87, Lipase 127 Imagings Data: EXAM DESCRIPTION: CT - Thorax Wo Con CLINICAL HISTORY: Chest pain dyspnea COMPARISON: Chest Single View dated 06/04/2021 FINDINGS: There is quite extensive airspace opacification of the right lung seen in a small amount airspace opacification seen in left lung. Small bilateral pleural effusions, larger on the right. No pneumothorax. A few mildly prominent lymph nodes in the mediastinum. No concerning bony finding. Abdominal aortic aneurysm with a stent in place noted in the upper abdomen. All CT scans are performed using dose optimization technique as appropriate and may include automated exposure control or mA/KV adjustment according to patient size. IMPRESSION: Alveolar bilateral pulmonary opacities, quite severe on the right noted with small bilateral pleural effusions.This likely is related to pulmonary infection. [facility] CLINICAL HISTORY: sob COMPARISON: none FINDINGS: Marked alveolar opacities right lung. Mild to moderate alveolar opacities left lung. Heart appears enlarged IMPRESSION: Bilateral pulmonary opacities right greater than left probably pneumonia. Asymmetric pulmonary edema is another consideration Conclusions/Impression: MAURIZIO vs CKD CKD with proteinuria. Unclear CKD baseline. -No NSAIDs Hypokalemia -Replete potassium HTN with CKD -Continue Amlodipine -Continue Losartan -Continue Metoprolol LE Edema -Low sodium diet -Metolazone and Amiloride given today -Consider an echocardiogram DM II with CKD -RISS Moderate malnutrition -Continue Nepro COVID-19 PNA Acute hypoxic respiratory failure -Continue Levaquin -Continue steroids -Continue Nebs -Continue Oxygen supplementation
[2021-06-07 05:10] LABS: Absolute Lymphocytes (CBC) 0.2 K/uL (0.7-4.9); Lymphocytes % 1.6 % (15.3-44.8); RBC Red Blood Cell Count 4.51 M/uL (4.33-5.43)
[2021-06-07 05:31] LABS: Potassium 4.2 mmol/L (3.5-5.1)
[2021-06-07] MEDS: INSULIN -REGULAR HUMAN 50 UNIT/0.5 ML ML SQ SCH ×4 (07:30→21:01)
--- NOTE | 2021-06-07 08:27 | P.PN ---
Subjective Date of Service: 06/07/21 Chief Complaint: Pneumonia, Covid Subjectively improving although he has almost complete opacity opacification of the right lung continues to remain hypoxic Review of Systems General: Weakness Respiratory: Shortness of Breath Physical Examination - Vital Signs Temperature: 99 F Blood Pressure: 162/86 Pulse: 63 Respirations: 19 Pulse Ox (%): 86 - Physical Exam General: Alert, In no apparent distress, Oriented x3 Respiratory: Crackles/rales (Extensive crackles on the right side) Cardiovascular: Regular rate/rhythm, Normal S1 S2 Assessment & Plan - Problems (Diagnosis) (1) Severe pneumonia Current Visit: Yes Status: Acute Plan: Respiratory failure complete opacification of the right lung subjectively he looks well does not appear to be any significant distress white count is declining chest x-ray appearance is worse we will recheck his ABGs today change to IV dexamethasone continue with levofloxacin cultures are negative renal function improved
--- NOTE | 2021-06-07 08:39 | RAD REPORT ---
EXAM DESCRIPTION: RAD - Chest Single View - 06/07/2021 6:19 am CLINICAL HISTORY: Severe pneumonia Chest pain. COMPARISON: Chest Single View dated 06/04/2021 FINDINGS: Portable technique limits examination quality. Since 06/04/2021, worsening in lung aeration on the right is noted with near complete consolidation o f the right lung seen. Mild increased interstitial lung opacities on the left also present. The heart is mildly prominent. IMPRESSION: Worsening of right lung aeration is seen since comparative study as detailed.
[2021-06-07] MEDS: APIXABAN 2.5 MG TABLET PO SCH ×2 (08:51→21:01)
[2021-06-07] MEDS: METOPROLOL TAR 50 MG TAB PO SCH ×2 (08:52→21:00)
[2021-06-07] MEDS: LOSARTAN POTASSIUM 50 MG TABLET PO SCH ×2 (08:52→21:01)
[2021-06-07] MEDS: dexAMETHasone 4 MG/ML VIAL IV SCH ×2 (08:52→16:39)
[2021-06-07] MEDS: AMIODARONE HCL 200 MG TAB PO SCH ×2 (08:52→21:01)
[2021-06-07] MEDS: AMLODIPINE 10 MG TAB PO SCH (08:53)
[2021-06-07] MEDS: NEPRO SHAKE 237 ML CAN PO SCH ×3 (08:53→21:00)
[2021-06-07] MEDS: BARICITINIB 2 MG TABLET PO SCH (10:11)
[2021-06-07] MEDS ORDERED: METOLAZONE 5 MG TABLET PO SCH (11:30)
[2021-06-07 11:31] LABS: Arterial Blood Carboxyhemoglob 1.3 % (0-1.5); Blood Gas Oxyhemoglobin 79.3 % (94-97); Blood O2 Saturation 81.5 % (92-98.5)
--- NOTE | 2021-06-07 14:12 | P.PN ---
Subjective Date of Service: 06/07/21 Chief Complaint: Pneumonia, Covid Patient's UA shows hypoxemia on 15 L oxygen by nasal cannula. Patient has no new complaints and appears comfortable on the oxygen by nasal cannula. Physical Examination - Vital Signs Temperature: 96.9 F Blood Pressure: 161/75 Pulse: 61 Respirations: 22 Pulse Ox (%): 95 - Physical Exam General: Alert, In no apparent distress HEENT: Other (Oxygen by nasal cannula) Neck: JVD not distended Respiratory: Crackles/rales (Bilateral), Other (Nonlabored breathing) Cardiovascular: No edema, Regular rate/rhythm, Normal S1 S2 Gastrointestinal: Soft and benign, Non-distended, No tenderness Musculoskeletal: No swelling Integumentary: No rashes Neurological: Normal strength at 5/5 x4 extr Assessment And Plan - Plan Problem list Acute Hypoxemic Respiratory failure secondary to COVID-19 pneumonia Possible community-acquired pneumonia [id number] diabetes mellitus type 2 Hypertension Peripheral artery diseasefemoral bypass Chronic atrial fibrillation. Bilateral pulmonary opacities, significantly worse on the right, concerning for possible bacterial etiology Continue empiric treatment for community-acquired pneumonia. Continue steroids for COVID pneumonia. IV Lasix as needed. Started on high flow oxygen. Pulmonary is following. Patient started on baricitinib. Continue insulin sliding scale for glucose management. Continue home medications for hypertension and A. fib. Continue Eliquis.
--- NOTE | 2021-06-07 20:40 | P.PN ---
Date of Service: 06/07/21 Vital Signs Temp Pulse Resp BP Pulse Ox 97.4 F 81 26 H 157/77 H 95 06/07/21 16:00 06/07/21 16:00 06/07/21 16:00 06/07/21 16:00 06/07/21 16:00 Medications Albuterol Sulfate (Albuterol 2.5 Mg/3 Ml Neb Ana Rosa) 2.5 mg NEB Q6HP PRN PRN Reason: SHORTNESS OF BREATH Amiloride HCl (Amiloride Hcl 5 Mg Tablet) 10 mg PO 1X ONE Stop: 06/08/21 11:31 Amiodarone HCl (Amiodarone Hcl 200 Mg Tab) 200 mg PO BID [facility] Last Admin: 06/07/21 08:52 Dose: 200 mg Documented by: Amlodipine Besylate (Amlodipine 10 Mg Tab) 10 mg PO DAILY [facility] Last Admin: 06/07/21 08:53 Dose: 10 mg Documented by: Apixaban (Apixaban 2.5 Mg Tablet) 2.5 mg PO BID [facility] Last Admin: 06/07/21 08:51 Dose: 2.5 mg Documented by: Dexamethasone (Dexamethasone 4 Mg/Ml Vial) 4 mg IV Q8HR [facility] Last Admin: 06/07/21 16:39 Dose: 4 mg Documented by: Enteral Nutritional Formula (Nepro Shake 237 Ml Can) 240 ml PO TID [facility] Last Admin: 06/07/21 11:50 Dose: Not Given Documented by: Insulin Human Regular (Insulin -Regular Human 50 Unit/0.5 Ml Ml) 0 unit SQ ACHS [facility]; Protocol Last Admin: 06/07/21 16:37 Dose: 3 unit Documented by: Levofloxacin (Levofloxacin 750 Mg Tab) 750 mg PO Q48H [facility]; Protocol Last Admin: 06/06/21 12:26 Dose: 750 mg Documented by: Losartan Potassium (Losartan Potassium 50 Mg Tablet) 50 mg PO BID [facility] Last Admin: 06/07/21 08:52 Dose: 50 mg Documented by: Metolazone (Metolazone 5 Mg Tablet) 10 mg PO 1X [facility] Last Admin: 06/07/21 11:48 Dose: 10 mg Documented by: Metoprolol Tartrate (Metoprolol Tar 50 Mg Tab) 50 mg PO BID [facility] Last Admin: 06/07/21 08:52 Dose: 50 mg Documented by: Ondansetron HCl (Ondansetron 4 Mg/2 Ml Vial) 4 mg IV Q6HP PRN PRN Reason: NAUSEA / VOMITING Rosuvastatin Calcium (Rosuvastatin 10 Mg Tab) 10 mg PO BEDTIME [facility] Last Admin: 06/06/21 20:21 Dose: 10 mg Documented by: Sodium Chloride (Flush Normal Saline 10 Ml) 10 ml IV BID [facility] Last Admin: 06/07/21 08:53 Dose: Not Given Documented by: Microbiology Results 06/04/21 11:00 Blood - Blood Aerobic Blood Culture - Preliminary No growth in 24 hours. 06/04/21 11:00 Blood - Blood Anaerobic Blood Culture - Preliminary No growth in 24 hours. 06/04/21 10:35 Blood - Blood Aerobic Blood Culture - Preliminary No growth in 24 hours. 06/04/21 10:35 Blood - Blood Anaerobic Blood Culture - Preliminary No growth in 24 hours. Assessment/ Plan: Nephrology Improving dyspnea No chest pain Malaise and weakness. Fair appetite No acute events overnight Vitals, medications, blood work and imaging reviewed in the chart General: Oriented x3, Cooperative HEENT: Atraumatic Neck: Supple Respiratory: Normal air movement. BL Rales. Cardiovascular: Regular rate/rhythm, Hip & LE Edema Gastrointestinal: Soft and benign, No guarding Musculoskeletal: No clubbing, No contractures Integumentary: No rashes, No cyanosis Neurological: Normal speech Laboratory Data (last 24 hrs) 06/04/21 10:35: PT 12.6 H, INR 1.09, APTT 24.2 L 06/04/21 10:35: WBC 13.70 H, Hgb 12.8 L, Hct 39.4 L, Plt Count 294 06/04/21 10:35: Sodium 140, Potassium 3.6, BUN 38 H, Creatinine 2.27 H, Glucose 122 H, Total Bilirubin 0.6, AST 39 H, ALT 53, Alkaline Phosphatase 87, Lipase 127 Imagings Data: EXAM DESCRIPTION: CT - Thorax Wo Con CLINICAL HISTORY: Chest pain dyspnea COMPARISON: Chest Single View dated 06/04/2021 FINDINGS: There is quite extensive airspace opacification of the right lung seen in a small amount airspace opacification seen in left lung. Small bilateral pleural effusions, larger on the right. No pneumothorax. A few mildly prominent lymph nodes in the mediastinum. No concerning bony finding. Abdominal aortic aneurysm with a stent in place noted in the upper abdomen. All CT scans are performed using dose optimization technique as appropriate and may include automated exposure control or mA/KV adjustment according to patient size. IMPRESSION: Alveolar bilateral pulmonary opacities, quite severe on the right noted with small bilateral pleural effusions.This likely is related to pulmonary infection. EXAM DESCRIPTION: [facility] Single View06/04/2021 11:00 a CLINICAL HISTORY: sob COMPARISON: none FINDINGS: Marked alveolar opacities right lung. Mild to moderate alveolar opacities left lung. Heart appears enlarged IMPRESSION: Bilateral pulmonary opacities right greater than left probably pneumonia. Asymmetric pulmonary edema is another consideration Conclusions/Impression: MAURIZIO vs CKD CKD with proteinuria. Unclear CKD baseline. -No NSAIDs Hypokalemia -Replete potassium prn HTN with CKD -Continue Amlodipine -Continue Losartan -Continue Metoprolol LE Edema -Low sodium diet -Metolazone and Amiloride given today -Consider an echocardiogram DM II with CKD -RISS Moderate malnutrition -Continue Nepro COVID-19 PNA Acute hypoxic respiratory failure -Continue Levaquin -Continue steroids -Continue Nebs -Continue Oxygen supplementation
[2021-06-07] MEDS: ROSUVASTATIN 10 MG TAB PO SCH (21:00)
[2021-06-08] MEDS: dexAMETHasone 4 MG/ML VIAL IV SCH ×3 (00:09→16:16)
[2021-06-08 04:36] LABS: Absolute Lymphocytes (CBC) 0.3 K/uL (0.7-4.9); Hematocrit 40.1 % (39.6-49.0); Lymphocytes % 2.6 % (15.3-44.8); MPV 7.4 fL (7.6-11.3); RBC Red Blood Cell Count 4.66 M/uL (4.33-5.43)
[2021-06-08 04:55] LABS: Potassium 4.6 mmol/L (3.5-5.1)
[2021-06-08] MEDS: INSULIN -REGULAR HUMAN 50 UNIT/0.5 ML ML SQ SCH ×4 (07:30→20:25)
[2021-06-08] MEDS: APIXABAN 2.5 MG TABLET PO SCH ×2 (08:33→20:24)
[2021-06-08] MEDS: levoFLOXacin 750 MG TAB PO SCH (08:33)
[2021-06-08] MEDS: LOSARTAN POTASSIUM 50 MG TABLET PO SCH ×2 (08:33→20:24)
[2021-06-08] MEDS: METOPROLOL TAR 50 MG TAB PO SCH ×2 (08:33→20:24)
[2021-06-08] MEDS: BARICITINIB 2 MG TABLET PO SCH (08:34)
[2021-06-08] MEDS: AMIODARONE HCL 200 MG TAB PO SCH ×2 (08:34→20:24)
[2021-06-08] MEDS: AMLODIPINE 10 MG TAB PO SCH (08:34)
[2021-06-08] MEDS: NEPRO SHAKE 237 ML CAN PO SCH ×3 (08:36→20:25)
[2021-06-08] MEDS ORDERED: AMILORIDE HCL 5 MG TABLET PO ONE (11:30)
--- NOTE | 2021-06-08 11:56 | P.PN ---
Subjective Date of Service: 06/08/21 Chief Complaint: Respiratory failure from coronavirus Patient's condition is stable still requiring high concentrations of oxygen severe pneumonia eating and drinking Review of Systems General: Weakness Respiratory: Shortness of Breath Physical Examination - Vital Signs Temperature: 97.0 F Blood Pressure: 177/86 Pulse: 61 Respirations: 20 Pulse Ox (%): 91 - Physical Exam General: Alert, Oriented x3, Moderate distress Respiratory: Crackles/rales (Crackles on the right side) Assessment & Plan - Problems (Diagnosis) (1) Severe pneumonia Current Visit: Yes Status: Acute Plan: Patient admitted with severe pneumonia continue with present treatment steroids Barcitinib and repeat chest x-ray is ordered on 100% FiO2 prognosis poor he has had COVID before dressing leads very asymmetric distribution on his x-ray
--- NOTE | 2021-06-08 14:38 | RAD REPORT ---
EXAM DESCRIPTION: [facility] Single View06/08/2021 1:29 pm CLINICAL HISTORY: Chest pain COMPARISON: June 07, 2021 FINDINGS: Mild improvement in the extensive right lung opacities. Mild worsening in the [id number] left lung opacities. Equivocal enlargement of a right pleural effusion which may be small to moderate. Small left pleural effusion.
--- NOTE | 2021-06-08 15:52 | P.PN ---
Subjective Date of Service: 06/08/21 Chief Complaint: Respiratory failure from coronavirus Patient is now dependent on high flow oxygen. Physical Examination - Vital Signs Temperature: 98.1 F Blood Pressure: 174/88 Pulse: 60 Respirations: 20 Pulse Ox (%): 91 - Physical Exam General: Alert, In no apparent distress HEENT: Other (HFNC) Neck: JVD not distended Respiratory: Other (Nonlabored breathing) Cardiovascular: No edema, Regular rate/rhythm, Normal S1 S2 Gastrointestinal: Soft and benign, Non-distended Musculoskeletal: No swelling Integumentary: No rashes Neurological: Normal strength at 5/5 x4 extr Assessment And Plan - Plan Problem list Acute Hypoxemic Respiratory failure secondary to COVID-19 pneumonia Possible community-acquired pneumonia [id number] diabetes mellitus type 2 Hypertension Peripheral artery diseasefemoral bypass Chronic atrial fibrillation. Chronic kidney disease stage III Continue empiric treatment for community-acquired pneumonia. Continue IV steroids for COVID pneumonia. IV Lasix as needed. Currently on high flow oxygen. Pulmonary is following. Continue baricitinib. Continue insulin sliding scale for glucose management. Continue home medications for hypertension and A. fib. Continue Eliquis. Renal function is stable.
[2021-06-08] MEDS ORDERED: MINERAL OIL ENEMA 135 ML BTL PR SCH (20:00)
--- NOTE | 2021-06-08 20:17 | P.PN ---
Date of Service: 06/08/21 Vital Signs Temp Pulse Resp BP Pulse Ox 98.0 F 60 18 144/64 H 92 06/08/21 16:00 06/08/21 16:00 06/08/21 16:00 06/08/21 16:00 06/08/21 16:00 Medications Albuterol Sulfate (Albuterol 2.5 Mg/3 Ml Neb Ana Rosa) 2.5 mg NEB Q6HP PRN PRN Reason: SHORTNESS OF BREATH Amiodarone HCl (Amiodarone Hcl 200 Mg Tab) 200 mg PO BID [facility] Last Admin: 06/08/21 08:34 Dose: 200 mg Documented by: Amlodipine Besylate (Amlodipine 10 Mg Tab) 10 mg PO DAILY [facility] Last Admin: 06/08/21 08:34 Dose: 10 mg Documented by: Apixaban (Apixaban 2.5 Mg Tablet) 2.5 mg PO BID [facility] Last Admin: 06/08/21 08:33 Dose: 2.5 mg Documented by: Dexamethasone (Dexamethasone 4 Mg/Ml Vial) 4 mg IV Q8HR [facility] Last Admin: 06/08/21 16:16 Dose: 4 mg Documented by: Enteral Nutritional Formula (Nepro Shake 237 Ml Can) 240 ml PO TID [facility] Last Admin: 06/08/21 13:06 Dose: Not Given Documented by: Insulin Human Regular (Insulin -Regular Human 50 Unit/0.5 Ml Ml) 0 unit SQ ACHS [facility]; Protocol Last Admin: 06/08/21 16:18 Dose: Not Given Documented by: Levofloxacin (Levofloxacin 750 Mg Tab) 750 mg PO Q48H [facility]; Protocol Last Admin: 06/08/21 08:33 Dose: 750 mg Documented by: Losartan Potassium (Losartan Potassium 50 Mg Tablet) 50 mg PO BID [facility] Last Admin: 06/08/21 08:33 Dose: 50 mg Documented by: Metoprolol Tartrate (Metoprolol Tar 50 Mg Tab) 50 mg PO BID [facility] Last Admin: 06/08/21 08:33 Dose: 50 mg Documented by: Mineral Oil (Mineral Oil Enema 135 Ml Btl) 133 ml CA 1X [facility] Ondansetron HCl (Ondansetron 4 Mg/2 Ml Vial) 4 mg IV Q6HP PRN PRN Reason: NAUSEA / VOMITING Rosuvastatin Calcium (Rosuvastatin 10 Mg Tab) 10 mg PO BEDTIME [facility] Last Admin: 06/07/21 21:00 Dose: 10 mg Documented by: Sodium Chloride (Flush Normal Saline 10 Ml) 10 ml IV BID [facility] Last Admin: 06/08/21 08:36 Dose: 10 ml Documented by: Microbiology Results 06/04/21 11:00 Blood - Blood Aerobic Blood Culture - Preliminary No growth in 24 hours. 06/04/21 11:00 Blood - Blood Anaerobic Blood Culture - Preliminary No growth in 24 hours. 06/04/21 10:35 Blood - Blood Aerobic Blood Culture - Preliminary No growth in 24 hours. 06/04/21 10:35 Blood - Blood Anaerobic Blood Culture - Preliminary No growth in 24 hours. Assessment/ Plan: Nephrology Improving dyspnea No chest pain Fatigue and weakness. Fair appetite No acute events overnight Vitals, medications, blood work and imaging reviewed in the chart General: Oriented x3, Cooperative HEENT: Atraumatic Neck: Supple Respiratory: Normal air movement. BL Rales. Cardiovascular: Regular rate/rhythm, No edema Gastrointestinal: Soft and benign, No guarding Musculoskeletal: No clubbing, No contractures Integumentary: No rashes, No cyanosis Neurological: Normal speech Laboratory Data (last 24 hrs) 06/04/21 10:35: PT 12.6 H, INR 1.09, APTT 24.2 L 06/04/21 10:35: WBC 13.70 H, Hgb 12.8 L, Hct 39.4 L, Plt Count 294 06/04/21 10:35: Sodium 140, Potassium 3.6, BUN 38 H, Creatinine 2.27 H, Glucose 122 H, Total Bilirubin 0.6, AST 39 H, ALT 53, Alkaline Phosphatase 87, Lipase 127 Imagings Data: EXAM DESCRIPTION: CT - Thorax Wo Con CLINICAL HISTORY: Chest pain dyspnea COMPARISON: Chest Single View dated 06/04/2021 FINDINGS: There is quite extensive airspace opacification of the right lung seen in a small amount airspace opacification seen in left lung. Small bilateral pleural effusions, larger on the right. No pneumothorax. A few mildly prominent lymph nodes in the mediastinum. No concerning bony finding. Abdominal aortic aneurysm with a stent in place noted in the upper abdomen. All CT scans are performed using dose optimization technique as appropriate and may include automated exposure control or mA/KV adjustment according to patient size. IMPRESSION: Alveolar bilateral pulmonary opacities, quite severe on the right noted with small bilateral pleural effusions.This likely is related to pulmonary infection. EXAM DESCRIPTION: [facility] Single View06/04/2021 11:00 a CLINICAL HISTORY: sob COMPARISON: none FINDINGS: Marked alveolar opacities right lung. Mild to moderate alveolar opacities left lung. Heart appears enlarged IMPRESSION: Bilateral pulmonary opacities right greater than left probably pneumonia. Asymmetric pulmonary edema is another consideration Conclusions/Impression: MAURIZIO vs CKD CKD with proteinuria. Unclear CKD baseline. -No NSAIDs Hypokalemia -Replete potassium prn HTN with CKD -Continue Amlodipine -Continue Losartan -Continue Metoprolol LE Edema -Low sodium diet -Consider an echocardiogram DM II with CKD -RISS Moderate malnutrition -Continue Nepro COVID-19 PNA Acute hypoxic respiratory failure -Continue Levaquin -Continue steroids -Continue Nebs -Continue Oxygen supplementation
[2021-06-08] MEDS: ROSUVASTATIN 10 MG TAB PO SCH (20:24)
[2021-06-08] MEDS: DOCUSATE NA 100 MG CAP PO SCH (20:46)
[2021-06-09] MEDS: dexAMETHasone 4 MG/ML VIAL IV SCH ×2 (00:46→08:36)
[2021-06-09 04:34] LABS: Absolute Lymphocytes (CBC) 0.4 K/uL (0.7-4.9); Hematocrit 40.5 % (39.6-49.0); Lymphocytes % 3.5 % (15.3-44.8); MPV 7.3 fL (7.6-11.3); RBC Red Blood Cell Count 4.72 M/uL (4.33-5.43)
[2021-06-09 04:53] LABS: Albumin 2.1 g/dL (3.4-5.0); Bilirubin Total 0.7 mg/dL (0.2-1.0); Potassium 5.3 mmol/L (3.5-5.1); Protein, Total 6.2 g/dL (6.4-8.2)
[2021-06-09] MEDS: INSULIN -REGULAR HUMAN 50 UNIT/0.5 ML ML SQ SCH ×3 (07:30→16:30)
--- NOTE | 2021-06-09 07:51 | RAD REPORT ---
EXAM DESCRIPTION: RAD - Chest Single View - 06/09/2021 6:45 am CLINICAL HISTORY: Coronavirus pneumonia COMPARISON: Chest Single View dated 06/08/2021; Chest Single View dated 06/07/2021; Chest Single View dated 06/04/2021; Thorax Wo Con dated 06/04/2021 FINDINGS: Lines: None. Lungs: Widespread airspace disease, eccentric to the right, has worsened on the left side. Pleural: Small effusions better demonstrated on CT Cardiac: Mild cardiomegaly. Bones: No acute fractures. Other: IMPRESSION: Widespread bilateral airspace disease, eccentric to the right, showing moderate worsenin g in aeration of the left lung.
[2021-06-09] MEDS: LOSARTAN POTASSIUM 50 MG TABLET PO SCH (08:34)
[2021-06-09] MEDS: METOPROLOL TAR 50 MG TAB PO SCH (08:35)
[2021-06-09] MEDS: DOCUSATE NA 100 MG CAP PO SCH (08:35)
[2021-06-09] MEDS: AMLODIPINE 10 MG TAB PO SCH (08:35)
[2021-06-09] MEDS: APIXABAN 2.5 MG TABLET PO SCH (08:36)
[2021-06-09] MEDS: BARICITINIB 2 MG TABLET PO SCH (08:36)
[2021-06-09] MEDS: AMIODARONE HCL 200 MG TAB PO SCH (08:36)
[2021-06-09] MEDS: NEPRO SHAKE 237 ML CAN PO SCH ×2 (08:37→14:00)
--- NOTE | 2021-06-09 10:56 | P.PN ---
Subjective Date of Service: 06/09/21 Chief Complaint: Respiratory failure from coronavirus No change in patient's condition he continues to remain very hypoxic is 100% nonrebreather x-ray shows some improvement patient is very eager to be transferred out to an LTAC facility Review of Systems General: Weakness Respiratory: Cough, Shortness of Breath Physical Examination - Vital Signs Temperature: 97.5 F Blood Pressure: 141/70 Pulse: 61 Respirations: 84 Pulse Ox (%): 91 - Physical Exam General: Moderate distress Respiratory: Crackles/rales Assessment & Plan - Problems (Diagnosis) (1) Severe pneumonia Current Visit: Yes Status: Acute Plan: Respiratory failure from coronavirus chest x-ray does show some improved s still requiring 100% FiO2 chest x-ray is also showing changes in the left lung again consistent with severe coronavirus pneumonia traveler changer to BiPAP see how much oxygen he will need to check with the ambulance to see if he is stable for transfer and that they will be able to provide the level of oxygen needed for him to be transported normal white count. Creatinine is slightly worse on maximum therapy is also on Barcitinib and steroid prognosis poor
[2021-06-09] MEDS ORDERED: hydroCHLOROthiazide 12.5 MG CAP PO SCH (11:00)
[2021-06-09 14:02] VITALS: BP 150/72; TEMP 97
[2021-06-09 16:42] VITALS: O2SAT 93
--- NOTE | 2021-06-09 16:46 | P.DS ---
Admission Date: 06/04/21 Discharge Date: 06/09/21 Disposition: [facility] Discharge Condition: FAIR Reason for Admission: Respiratory failure from coronavirus Brief History of Present Illness: 76-year-old male, PMH: NIDDM2, HTN, history of COVID pneumonia requiring intubation for ~18 days in early 2019. Patient presented to ED due to worsening SOB, cough, not feeling well over 7 days. He was prescribed prednisone, hydroxychloroquine. He reported worsening symptoms and oxygen saturation down to the mid 70s when he checked his oxygen saturation with a pulse oximeter at home. On presentation to the ED, he was noted to be hypoxic, chest x-ray was significant right pulmonary opacities, bilateral pulmonary opacities, positive for Covid. CT scan was obtained which again noted bilateral opacities, significantly worse on the right. Patient was tolerated 10 L nasal cannula, SPO2: 90%. He he reported being fully vaccinated for COVID. Hospital Course: Problem list Acute Hypoxemic Respiratory failure secondary to COVID-19 pneumonia Possible community-acquired pneumonia Soa-fyzohnt-alvegkcsf diabetes mellitus type 2 Hypertension Peripheral artery diseasefemoral bypass Chronic atrial fibrillation. Chronic kidney disease stage III Patient admitted to the medical floor and treated for COVID-pneumonia with IV steroids, vitamin supplementation. Also treated empirically for community-acquired pneumonia annd received IV Lasix as needed. Patient required high flow oxygen and BiPAP. Seen by pulmonary and started on baricitinib. Continue home medications for hypertension and A. fib. Continued Eliquis for A. fib anticoagulation which also served for DVT prophylaxis Patient still requiring high flow oxygen. He has been accepted to LTAC. Patient placed on BiPAP for transfer to LTAC.. Vital Signs/Physical Exam: Temp Pulse Resp BP Pulse Ox 97.0 F 59 28 H 150/72 H 86 L 06/09/21 12:00 06/09/21 12:00 06/09/21 12:00 06/09/21 12:00 06/09/21 12:00 General: Alert, In no apparent distress HEENT: Other (BiPAP) Neck: JVD not distended Respiratory: Other (Nonlabored breathing) Cardiovascular: No edema, Regular rate/rhythm, Normal S1 S2 Gastrointestinal: Soft and benign, Non-distended, No tenderness Musculoskeletal: No swelling Integumentary: No rashes, No cyanosis Neurological: Normal strength at 5/5 x4 extr Laboratory Data at Discharge: WBC 10.70 K/uL (4.3-10.9) 06/09/21 03:55 Hgb 13.1 g/dL (13.6-17.9) L 06/09/21 03:55 Hct 40.5 % (39.6-49.0) 06/09/21 03:55 Plt Count 338 K/uL (152-406) 06/09/21 03:55 PT 12.6 SECONDS (9.5-12.5) H 06/04/21 10:35 INR 1.09 06/04/21 10:35 APTT 24.2 SECONDS (24.3-36.9) L 06/04/21 10:35 Sodium 139 mmol/L (136-145) 06/09/21 03:55 Potassium 5.3 mmol/L (3.5-5.1) H 06/09/21 03:55 BUN 45 mg/dL (7-18) H 06/09/21 03:55 Creatinine 1.74 mg/dL (0.55-1.3) H 06/09/21 03:55 Glucose 143 mg/dL (74-106) H 06/09/21 03:55 Uric Acid 7.2 mg/dL (3.5-7.2) 06/06/21 06:28 Phosphorus 4.8 mg/dL (2.5-4.9) 06/05/21 06:20 Magnesium 2.5 mg/dL (1.8-2.4) H 06/05/21 06:20 Total Bilirubin 0.7 mg/dL (0.2-1.0) 06/09/21 03:55 AST 91 U/L (15-37) H 06/09/21 03:55 ALT 134 U/L (12-78) H 06/09/21 03:55 Alkaline Phosphatase 110 U/L (45-117) 06/09/21 03:55 Lipase 127 U/L (73-393) 06/04/21 10:35 Home Medications: Amiodarone HCl [Cordarone*] 200 mg PO BID 06/05/21 Amlodipine [Norvasc*] 10 mg PO DAILY 06/05/21 Losartan Potassium 50 mg PO BID 06/05/21 Metformin HCl 1,000 mg PO BID 06/05/21 Metoprolol Tartrate 50 mg PO BID 06/05/21 Rosuvastatin [Crestor*] 10 mg PO BEDTIME 06/05/21 Albuterol Neb [Proventil 0.083% Neb Soln] 2.5 mg NEB Q6HP PRN amp 06/09/21 Apixaban [Eliquis *] 2.5 mg PO BID tablet 06/09/21 Baricitinib [Olumiant] 2 mg PO DAILY tablet 06/09/21 Docusate [Colace Cap*] 100 mg PO BID cap 06/09/21 Insulin -Regular Human [Novolin -R*] See Protocol SQ ACHS ml 06/09/21 Nepro Shake [Nepro*] 240 ml PO TID can 06/09/21 Ondansetron [Zofran*] 4 mg IV Q6HP PRN vial 06/09/21 dexAMETHasone [Decadron*] 4 mg IV Q8HR vial 06/09/21 hydroCHLOROthiazide [Hydrochlorothiazide*] 12.5 mg PO DAILY cap 06/09/21 levoFLOXacin [Levaquin*] 750 mg PO Q48H tab 06/09/21 Followup: NONE,NONE [Primary Care Provider] - Time spent managing pt's care (in minutes): 40
== END 2021-06-09 17:20 | DRG 177 ==
LOC: ER 10:02 → ERHOLD 14:57 → 4TH 22:49
PROVIDERS: ADMIT Hospitalist; ATTEND Hospitalist
DX: U07.1 COVID-19 (principal); J12.82 Pneumonia due to coronavirus disease 2019; J96.01 Acute respiratory failure with hypoxia; J18.9 Pneumonia, unspecified organism; I48.20 Chronic atrial fibrillation, unspecified; E46 Unspecified protein-calorie malnutrition; I12.9 Hypertensive chronic kidney disease with stage 1 through stage 4 chronic kidney disease, or unspecified chronic kidney disease; E11.22 Type 2 diabetes mellitus with diabetic chronic kidney disease; N18.30 Chronic kidney disease, stage 3 unspecified; I73.9 Peripheral vascular disease, unspecified; E87.6 Hypokalemia; Z68.35 Body mass index [BMI] 35.0-35.9, adult
CPT/HCPCS: 36415; 71045; 71250; 80048; 80053; 80076; 81003; 82570; 82728; 82805; 82947; 83605; 83690; 83735; 83880; 84100; 84145; 84156; 84484; 84550; 85025; 85379; 85610; 85730; 86140; 87040; 93005; 94002; 94003; 94660; 94760; 96365; 96366; 96368; 96375; 99283; J0456; J1100; J1940; J2920; J2930; J7050; J8540; U0003

== ENCOUNTER 2022-01-25 13:33 | Inpatient (IN) | payer OTHER ==
--- OUTSIDE RECORDS SUMMARY | 2022-01-25 13:48 | XMS REPORT | Continuity of Care Document ---
:[address] [facility] t Address [address] [place] [address] Care Team Providers Name Role Phone Viet Ness MD Primary Care Physician WASHINGTON LYNCH EMILE Attending Clinician Unavailable [id number] Attending Clinician Unavailable ROSS EPPERSON Attending Clinician UnavailFranco Gonsalez Attending Clinician Deonte Najera Attending Clinician ISMAEL WAGNER Attending Clinician Unavailable Serg Martines MD Attending Clinician Unavailable SERG MARTINES Attending Clinician Unavailable CHARITO MCGEE Attending Clinician Unavailable MARTY HERNANDEZ Attending Clinician Unavailable JOHNNY GIBBS Attending Clinician Unavailable WASHINGTON LYNCH EMILE Admitting Clinician Unavailable [id number] Admitting Clinician Unavailable JOHAN ROGERS Admitting Clinician Unavailable Korin Ferrell Admitting Clinician Payers Payer Name Policy Type Policy Number Effective Date Expiration Date S ilia [facility] [id number] [facility] [id number] MEDICARE A B [id number] 2010 00:00:00 [employer] [id number] 2010 00:00:00 MEDICARE PART A [id number] \\T\\ [id number] - MEDICARE MEDIGAP - M[employer]UAL [id number] 2010 [facility] 00:00:00 Problems Condition Condition Condition Status Onset Resolution Last Treating Co mments Source Name Details Category Date Date Treatment Clinician Date MEDICAL MEDICAL Diagnosis Active 2022-01-01 Memoria PROBLEM - PROBLEM - 01-01 15:09:00 l MAJOR MAJOR 00:00: Yunier Active 00 01/01/2022 [facility] ACUTE ON ACUTE ON Diagnosis Active 2022-01-04 Memoria CHRONIC CHRONIC 01-01 11:16:00 l RENAL RENAL 00:00: [place] FAILURE FAILURE 00 Active 01/01/2022 [facility] Acute Acute Disease Active [facility] resp[facility] respirator 5-09 [facility] y failure y failure 00:00: Medi jing with with 00 Center hypoxia hypoxia Pneumonia Pneumonia Disease [facility] Pneumonia Pneumonia Disease Active [facility] due [facility] COVID-19 COVID-19 00:00: Medica l virus virus 00 Center Chronic Chronic Problem Active 2022-01-19 Me moria kidney kidney 22:21:44 l disease disease [place] stage 3 stage 3 (disorder) (disorder) Active Problem 01/19/2022 Medical [facility] Decrease Decrease Problem Active 2022-01-19 Memoria in in 22:21:44 l appetite appetite Ernesto n (finding) (finding) Active Problem 01/19/2022 [facility] Diabetes Diabetes Problem Active 2022-01-19 Memoria mellitus mellitus 22:21:44 l (disorder) (disorder) He rmann Active Problem 01/19/2022 [facility] Fall in Fall in Problem Active 2022-01-19 Ok moria home home 22:21:44 l (finding) (finding) Herm bob Active Problem 01/19/2022 [facility] Fatigue Fatigue Problem Active 2022-01-19 Ok moria (finding) (finding) 22:21:44 l Active Yunier Problem 01/19/2022 [facility] Hyperlipid Hyperlipi Problem Active 2022-01-19 Memoria emia demia 22:21:44 l (disorder) (disorder) He rmann Active Problem 01/19/2022 [facility] Hypertensi Hypertens Problem Active 2022-01-19 Memoria ve marshal 22:21:44 l disorder, disorder, Herm bob systemic systemic arterial arterial (disorder) (disorder) [facility] Malaise Malaise Problem Active 2022-01-19 Me moria (finding) (finding) 22:21:44 l Active Yunier Problem 01/19/2022 Medical [facility] Paroxysmal Paroxysma Problem Active 2022-01-19 Memoria atrial l atrial 22:21:44 l fibrillati fibrillati He rmann on on (disorder) (disorder) Active Problem 01/19/2022 Medical [facility] Acute-on-c Acute-on- Problem Active 2022-01-19 Memoria hronic chronic 22:21:44 l renal renal Yunier failure failure (disorder) (disorder) Active Problem 01/19/2022 [facility] Post-disch Post-disc Problem Active 2022-01-19 Memoria arge harge 22:21:44 l follow-up follow-up Karolina rojas (finding) (finding) Active Problem 01/19/2022 [facility] ACUTE ACUTE Diagnosis Active 2022-01-04 Mem oria KIDNEY KIDNEY 11:16:00 l FAILURE, FAILURE, Ernesto steiner UNSPECIFIE UNSPECIFIE D D Active [facility] No known No known Disease Metho di active active st problems problems Hospit a l Acute Acute Problem 2022-01-18 2022-01-18 M emoria kidney kidney 01-12 04:18:51 04:18:51 l failure, failure, 16:59: Ernesto steiner unspecifie unspecifie 00 d d 01/12/2022 01/18/2022 Medical Group Encounter Encounter Problem 2022-01-11 2022-01-11 Memoria for for 01-07 04:02:18 04:02:18 l follow-up follow-up 21:41: Karolina rojas examinatio examinatio 00 n after n after completed completed treatment treatment for for conditions conditions other than other than malignant malignant neoplasm neoplasm 01/07/2022 Medical Group Hypo-osmol Hypo-osmo Problem 2022-01-07 2022-01-07 Memoria ality and lality and 01-02 22:11:15 22:11:15 l hyponatrem hyponatrem 18:44: He eric vázquez ia 03 01/02/2022 [facility] Anorexia Anorexia Problem 2021-12-17 2021-12-17 Memoria 12/14/202112-14 02:25:13 02:25:13 l 12/17/2021 18:50: Ernesto steiner Medical 00 Group Unspecifie Unspecifi Problem 2021-12-17 2021-12-17 Memoria d fall, ed fall, 12-14 02:25:13 02:25:13 l initial initial 18:50: Yunier encounter encounter 00 12/14/2021 12/17/2021 Medical Group Type 2 Type 2 Problem 2021-12-17 [facility] diabetes 12-14 02:25:13 02:25:13 l mellitus mellitus 18:49: Ernesto steiner without without 00 complicati complicati ons ons 12/14/2021 12/17/2021 Medical Group Chronic Chronic Problem 2021-12-17 2021-12-17 Memoria kidney kidney 12-14 02:25:13 02:25:13 l disease, disease, 18:49: Ernesto steiner stage 3 stage 3 00 unspecifie unspecifie d d 12/14/2021 12/17/2021 Medical Group Other Other Problem 2021-12-17 2021-12-17 M emoria malaise malaise 12-14 02:25:13 02:25:13 l 12/14/2021 18:49: Ernesto steiner 12/17/2021 00 Medical Group Hyperlipid Hyperlipi Problem 2021-12-17 2021-12-17 Memoria tillmania, 12-14 02:25:13 02:25:13 l unspecifie unspecifie 18:49: Denis reyes d d 00 12/14/2021 12/17/2021 Medical Group Essential Essential Problem 2021-12-17 2021-12-17 Memoria (primary) (primary) 12-14 02:25:13 02:25:13 l hypertensi hypertensi 18:48: He rmann on on 12/14/2021 12/17/2021 Medical Group Paroxysmal Paroxysma Problem 2021-12-17 2021-12-17 Memoria atrial l atrial 12-14 02:25:13 02:25:13 l fibrillati fibrillati 18:48: He rmann on on 12/14/2021 12/17/2021 Medical Group Allergies, Adverse Reactions, Alerts Allergy Allergy Status Severity Reaction(s) Onset Inactive Treating Comm ents Source Name Type Date Date Clinician NKA Allergy Active 2019-0 ENCCLR 5-18 18:55: 09 NKA Allergy Active 2020-0 ENCCLR 5-18 18:55: 09 NKA Allergy Active 2020-0 ENCCLR 5-18 18:55: 09 NKA Allergy Active 2020-0 ENCCLR 5-18 18:55: 09 NKA Allergy Active 2020-0 ENCCLR -18 18:55: 09 NKA Allergy Active 2020-0 ENCCLR 5-18 18:55: 09 NKA Allergy Active 2020-0 ENCCLR 5-18 18:55: 09 NKA Allergy Active 2020-0 ENCCLR 5-18 18:55: 09 NKA Allergy Active 2020-0 ENCCLR 5-18 18:55: 09 NKA Allergy Active 2020-0 ENCCLR 5-18 18:55: 09 NKA Allergy Active 2020-0 ENCCLR 5-18 18:55: 09 NKA Allergy Active 2020-0 ENCCLR 5-18 18:55: 09 NKA Allergy Active 2020-0 ENCCLR 5-18 18:55: 09 NO KNOWN Allergy Active [facility] Family History Family Member Diagnosis Comments Start Date Stop Date Source Natural father No Known Problems Met [facility] Natural mother No Known Problems Met [facility] Social History Social Habit Start Date Stop Date Quantity Comments Source History SDOH [facility] Alcohol Frequency Medical Center History SDOH [facility] Alcohol Std Drinks Medica l Center History SDOH [facility] Alcohol Binge Medical Kate ter Social History 2022-01-02 2022-01-02 [facility] ermann 05:56:57 05:56:57 History SDOH 2020-06-02 2020-06-[address] [facility] Alcohol Comment 00:00:00 00:00:00 Medical C enter Tobacco use and 2019-09-18 2019-09-[address] [facility] [address] [facility] exposure 00:00:00 00:00:00 [facility] Alcohol intake 2019-07-23 2019-07-23 Current drinker [facility] 00:00:00 00:00:00 of alcohol Hospital (finding) History of tobacco 1979-09-[address] [facility] [facility] use [facility] Sex [birth year] [facility] 00:00:00 00:00:00 Hospital Smoking Status Start Date Stop Date Source Former smoker 2019-09-18 00:00:00 2019-09-18 00:00:00 [facility] Medications Ordered Filled Start Stop Current Ordering Indication Dosage Frequency Signature Comments Components Source Medication Medication Date Date Medication? Clinician (SIG) Name Name heparin No Notes: Memoria 8-11 porcine l 21:00: heparin Yunier 00 normal No 1,000 mL, Memori a saline 0.9% 8-10 1,000 l (Bolus) IV 18:51: ml/hr, Billie nn 00 Infuse Over: 1 hr, Route: IV, 1,000, Drug form: INJ, ONCE, Priority: STAT, Dosing Weight 88.318 kg, Start date: 01/02/22 13:51:00 CDT, Stop date: 01/02/22 13:51:00 CDT, 0 Rocephin + No Notes: Memor ia Sodium 8-10 (Same As: l Chloride 17:00: Rocephin). Her kramer 0.9% IV 100 00 Use with mL 100 mL NS and infuse over 30 min MEDICATION WASTE Product Size: 1000 mg Product Wasted: ___ mg docusate No Notes: Memoria 8-10 (Same as: l 14:00: Colace) [place] 00 (Do Not Crush) sodium No Notes: Memoria bicarbonate 8-10 "Dissolve l 14:00: tablet in Yunier 00 a glass of water prior to oral administra tion. STOMACH WARNING: To avoid serious injury, do not take until tablet is completely dissolved. It is very important not to take this product when overly full from food or drink." Sodium 2021-0 No 1,000 mL, Memori a Chloride 8-10 1,000 l 0.9% 09:04: ml/hr, [place] (Bolus) IV 00 Infuse Over: 1 hr, Route: IV, 1,000, Drug form: INJ, ONCE, Priority: STAT, Dosing Weight 88.318 kg, Start date: 01/02/22 4:04:00 CDT, Stop date: 01/02/22 4:04:00 CDT, 0 senna 2021-0 No Notes: Memoria 8-10 (Same as: l 02:00: Senokot) Yunier D10W 2021-0 No 125 mL, Memoria (bolus) IV 8-10 999 ml/hr, l 01:13: Route: IV, Yunier 00 Drug Form: INJ, Dosing Weight 90.909, kg, PRN, PRN Blood Glucose Results, Start date: 01/01/22 20:13:00 CDT, Duration: 30 day, Stop date: 01/31/22 20:12:00 CDT, Infuse over: 0.1 hr, 0 Dextrose 2021-0 No 25 mL, Memoria 50% Syringe 01-02 Route: l (D50W) 00:23: IVP, [place] 00 Dosing Weight 90.909, kg, PRN, PRN Blood Glucose Results, Start date: 01/01/22 19:23:00 CDT, Duration: 30 day, Stop date: 01/31/22 19:22:00 CDT glucagon 2021-0 No 1 mg, Memoria 8-10 Route: IM, l 00:23: Drug form: [place] PDR/INJ, PRN, Dosing Weight 90.909, kg, PRN Blood Glucose Results, Start date: 01/01/22 19:23:00 CDT, Duration: 30 day, Stop date: 01/31/22 19:22:00 CDT, 0 insulin 2021-0 No Notes: Memoria lispro 8-10 (Same as: l 00:23: Humalog) Roll in palms of hands gently; Do not shake vigorously . WASTE: F/P - Black; E - Municipal Trash Bin Stable for 28 days at room temperatur e. Expires in days from ____Date Dextrose 2021-0 No 25 mL, Memoria 50% Syringe 8-10 Route: l (D50W) 00:19: IVP, Yunier 00 Dosing Weight 90.909, kg, PRN, PRN Blood Glucose Results, Start date: 01/01/22 19:19:00 CDT, Duration: 30 day, Stop date: 01/31/22 19:18:00 CDT glucagon 2021-0 No 1 mg, Memoria 8-10 Route: IM, l 00:19: Drug form: [place] 00 PDR/INJ, PRN, Dosing Weight 90.909, kg, PRN Blood Glucose Results, Start date: 01/01/22 19:19:00 CDT, Duration: 30 day, Stop date: 01/31/22 19:18:00 CDT, 0 ondansetron No Notes: Mukesh edita 8-10 (Same as: l 00:19: Zofran) MEDICATION WASTE Product Size: 4 mg Product Wasted: ___ mg Sodium No 1,000 mL, Memori a Chloride 8-10 Rate: 100 l 0.9% IV 00:19: ml/hr, [place] 1,000 mL 00 Infuse over: 10 hr, Route: IV, Dosing Weight 88.318 kg, Total Volume: 1,000, Start date: 01/01/22 19:19:00 CDT, Duration: 30 day, Stop date: 01/31/22 19:20:00 CDT, BSA: 2.13 m2, 0 Saline 2021-0 No Notes: Memoria Flush 0.9% 8-10 (Same as: l 00:19: BD [place] 00 Posiflush) NS (Bolus) 0 No 500 mL, Mukesh edita IV - 500 ml/hr, l 21:58: Infuse Over: 1 hr, Route: IV, 500, Drug form: INJ, ONCE, Priority: STAT, Dosing Weight 90.909 kg, Start date: 01/01/22 16:58:00 CDT, Stop date: 01/01/22 16:58:00 CDT, 0 NS (Bolus) No 500 mL, Mukesh edita IV 809 500 ml/hr, l 20:37: Infuse Yunier 00 Over: 1 hr, Route: IV, ONCE, Priority: STAT, Dosing Weight 90.909 kg, Start date: 01/01/22 15:37:00 CDT, Stop date: 01/01/22 15:37:00 CDT losartan 25 Yes 25 mg = 1 M emoria mg oral - tab, PO, l tablet 19:07: BID, # 180 Billie nn 00 tab, 0 Refill(s), other Zinc Yes See Memoria 12-14 Instructio l 18:16: ns, 50 mg Yunier 00 PO Daily, 0 Refill(s) valsartan No 160 mg = 1 Me moria 160 mg oral -22 tab, PO, l tablet 18:15: Daily, 0 [place] 00 Refill(s) Vitamin D3 Yes 50 Memoria 12-14 microgram, l 18:15: PO, Daily, Yunier 00 0 Refill(s) rosuvastati Yes 10 mg = 1 M emoria n 10 mg - tab, PO, l oral tablet 18:14: Daily, 0 He rmann 00 Refill(s) hydrochloro Yes 1 tab, PO, Memoria thiazide-sp 12-14 Daily, 0 l ironolacton 18:14: Refill(s) H ermann e 25 mg-25 00 mg oral tablet Tradjenta 5 No 5 mg = 1 Me moria mg oral -22 tab, PO, l tablet 18:14: Daily, 0 Yunier 00 Refill(s) metFORMIN Yes 1,000 mg = Me moria 1000 mg 22 1 tab, PO, l oral tablet 18:13: Daily, 0 He rmann 00 Refill(s) metoprolol Yes 25 mg = 1 Me moria tartrate 25 -22 tab, PO, l mg oral 18:13: BID, 0 [place] tablet 00 Refill(s) magnesium Yes 200 mg = 1 Me moria glycinate 7-22 tab, PO, 0 l 200 mg oral 18:12: Refill(s) H ermann tablet 00 melatonin Yes 3 mg, PO, Mem oria 12-14 Bedtime, 0 l 18:12: Refill(s) [place] 00 hydrochloro No 12.5 mg = M emoria thiazide 12-14 1 cap, PO, l 12.5 mg 18:11: Daily, 0 Ernesto n oral 00 Refill(s) capsule glyBURIDE 5 No 5 mg = 1 Me moria mg oral 7-22 tab, PO, l tablet 18:09: BID, 0 [place] 00 Refill(s) hydrALAZINE No 25 mg = 1 M emoria 25 mg oral 7-22 tab, PO, l tablet 18:09: TID, 0 Yunier 00 Refill(s) atorvastati No 20 mg = 1 M emoria n 20 mg 7-22 tab, PO, l oral tablet 18:08: Daily, 0 He rmann 00 Refill(s) bumetanide Yes 2 mg = 1 Mem oria 2 mg oral 7-22 tab, PO, l tablet 18:08: BID, 0 Yunier 00 Refill(s) AMIODarone Yes 200 mg = 1 M emoria 200 mg oral 7-22 tab, PO, l tablet 18:07: Daily, 0 Yunier 00 Refill(s) amLODIPine Yes 10 mg = 1 Me moria 10 mg oral 7-22 tab, PO, l tablet 18:07: Daily, 0 [place] 00 Refill(s) metFORMIN 2019-0 Yes 1000mg Take 1,[address] [facility] (GLUCOPHAGE 5-12 [facility] ) 1000 MG 15:10: mouth 2 Medic al tablet 55 (two) Center times daily with breakfast and dinner. rosuvastati 2019-0 Yes 10mg QD Take [address] [facility] n (CRESTOR) 5-12 by mouth Luke s 10 MG 15:10: daily. Medical tablet 55 Center glyBURIDE 2019-0 Yes 5mg Q.5D Take [address] [facility] (DIABETA) 5 5-12 by mouth 2 [facility]er[facility]es MG tablet 15:10: (two) Medical 55 times Center daily. losartan 2020-0 Yes 50mg Q.5D Take [address] (COZAAR) 50 5-12 by mouth 2 Guerda kes MG tablet 15:10: (two) Medical 55 times Center daily. metFORMIN 2020-0 Yes 1000mg Take 1,[address] [facility] [address] (GLUCOPHAGE 5-12 mg by [facility] ) 1000 MG 15:10: mouth 2 Medic al tablet 55 (two) Center times daily with breakfast and dinner. rosuvastati 2020-0 Yes 10mg QD Take [address] [address] n (CRESTOR) 5-12 by mouth Luke s 10 MG 15:10: daily. Medical tablet 55 Center glyBURIDE 2020-0 Yes 5mg Q.5D Take [address] [facility] (DIABETA) 5 5-12 by mouth 2 Guerda kes MG tablet 15:10: (two) Medical 55 times Center daily. losartan 2020-0 Yes 50mg Q.5D Take [address] (COZAAR) 50 5-12 by mouth 2 Guerda kes MG tablet 15:10: (two) Medical 55 times Center daily. metFORMIN 2020-0 Yes 1000mg Take 1,[address] (GLUCOPHAGE 5-12 mg by [facility] ) 1000 MG 15:10: mouth 2 Medic al tablet 55 (two) Center times daily with breakfast and dinner. rosuvastati 2020-0 Yes 10mg QD Take [address] [facility] n (CRESTOR) 5-12 by mouth Luke s 10 MG 15:10: daily. Medical tablet 55 Center glyBURIDE 2020-0 Yes 5mg Q.5D Take [address] [address] (DIABETA) 5 5-12 by mouth 2 Guerda kes MG tablet 15:10: (two) Medical 55 times Center daily. losartan 2020-0 Yes 50mg Q.5D Take [address] (COZAAR) 50 5-12 by mouth 2 Guerda kes MG tablet 15:10: (two) Medical 55 times Center daily. apixaban 2020-0 Yes 5mg Q.5D Take [address] [facility] [address] (ELIQUIS) 5 5-12 tablet (5 Jordin es mg Tab 00:00: mg total) Medica l tablet 00 by mouth 2 Center (two) times daily. melatonin 5 2020-0 Yes 5mg QD Take [address] mg Tab 5-12 tablet (5 [facility] tablet 00:00: mg total) Medica l 00 by mouth Center nightly. apixaban 2020-0 Yes 5mg Q.5D Take [address] [facility] [address] (ELIQUIS) 5 5-12 tablet (5 Jordin es mg Tab 00:00: mg total) Medica l tablet 00 by mouth 2 Center (two) times daily. melatonin 5 2020-0 Yes 5mg QD Take [address] [facility] mg Tab 5-12 tablet (5 [facility] tablet 00:00: mg total) Medica l 00 by mouth Center nightly. apixaban 2020-0 Yes 5mg Q.5D Take [address] [address] (ELIQUIS) 5 5-12 tablet (5 Jordin es mg Tab 00:00: mg total) Medica l tablet 00 by mouth 2 Center (two) times daily. melatonin 5 2020-0 Yes 5mg QD Take [address] [facility] mg Tab 5-12 tablet (5 [facility] tablet 00:00: mg total) Medica l 00 by mouth Center nightly. amiodarone 2020- No 200mg Q.5D Take [address] (PACERONE) 5-12 05-12 tablet [facility] 200 MG 00:00: 23:59 (200 mg Medical tablet 00 :00 total) by Center mouth 2 (two) times daily. bumetanide 2020- No 2mg Take [address] [facility] (BUMEX) 2 5-12 05-12 tablet (2 Luke s MG tablet 00:00: 23:59 mg total) Me dical 00 :00 by mouth 2 Center (two) times daily. metoprolol 2020- No 50mg Q.5D Take [address] tartrate 5-12 05-12 tablet (50 Luke s (LOPRESSOR) 00:00: 23:59 mg total) Medical 50 MG 00 :00 by mouth 2 Center tablet (two) times daily. amiodarone 2020- No 200mg Q.5D Take [address] (PACERONE) 5-12 05-12 tablet [facility] 200 MG 00:00: 23:59 (200 mg Medical tablet 00 :00 total) by Center mouth 2 (two) times daily. bumetanide 2020- No 2mg Take [address] [facility] (BUMEX) 2 5-12 05-12 tablet (2 Luke s MG tablet 00:00: 23:59 mg total) Me dical 00 :00 by mouth 2 Center (two) times daily. metoprolol 2019-0 2020- No 50mg Q.5D Take [address] tartrate 5-12 05-12 tablet (50 Luke s (LOPRESSOR) 00:00: 23:59 mg total) Medical 50 MG 00 :00 by mouth 2 Center tablet (two) times daily. metFORMIN 2018-0 Yes 1000mg Q.5D Take 1,000 [facility]i (GLUCOPHAGE 6-[address] ) 1,000 mg 10:22: mouth 2 Hosp flex tablet 09 (two) l times a day with meals. glyBURIDE 2018-0 Yes 5mg Q.5D Take 5 mg Met hodi (DIABETA) 5 6-[address] MG tablet 10:22: (two) Hospita 09 times a l day with meals. magnesium 2018-0 Yes 500mg QD Take 500 Met hodi gluconate 6-[address] (MAGONATE) 10:22: mouth Hospit a 500 mg 09 daily. l tablet tablet metFORMIN 2018-0 Yes 1000mg Q.5D Take 1,000 [facility] (GLUCOPHAGE 6-[address] ) 1,000 mg 10:22: mouth 2 Hosp flex tablet 09 (two) l times a day with meals. glyBURIDE 2018-0 Yes 5mg Q.5D Take 5 mg Met hodi (DIABETA) 5 6-[address] MG tablet 10:22: (two) Hospita 09 times a l day with meals. magnesium 2018-0 Yes 500mg QD Take 500 Met hodi gluconate 6-[address] (MAGONATE) 10:22: mouth Hospit a 500 mg 09 daily. l tablet tablet metFORMIN 2018-0 Yes 1000mg Q.5D Take 1,000 [facility] (GLUCOPHAGE 6-[address] ) 1,000 mg 10:22: mouth 2 Hosp flex tablet 09 (two) l times a day with meals. glyBURIDE 2018-0 Yes 5mg Q.5D Take 5 mg Met hodi (DIABETA) 5 6-[address] MG tablet 10:22: (two) Hospita 09 times a l day with meals. magnesium 2018-0 Yes 500mg QD Take 500 Met hodi gluconate 6-[address] (MAGONATE) 10:22: mouth Hospit a 500 mg 09 daily. l tablet tablet rosuvastati 2018-0 Yes 10mg QD Take 10 mg Methodi n (CRESTOR) 6-[address] 10 MG 10:22: daily. Hospita tablet 08 l losartan 2018-0 Yes 100mg Q.5D Take 100 Meth mika (COZAAR) 6-[address] 100 MG 10:22: mouth 2 Hospita tablet 08 (two) l times a day. hydroCHLORO 2018-0 Yes 12.5mg QD Take 12.5 Methodi thiazide 6-[address] (MICROZIDE) 10:22: mouth Hospi ta 12.5 mg 08 every l capsule morning. amLODIPine 2018-0 Yes 10mg Q.5D Take 10 mg M ethodi (NORVASC) 6-[address] 10 mg 10:22: (two) Hospita tablet 08 times a l day. rosuvastati 2018-0 Yes 10mg QD Take 10 mg Methodi n (CRESTOR) 6-[address] 10 MG 10:22: daily. Hospita tablet 08 l losartan 2018-0 Yes 100mg Q.5D Take 100 Meth mika (COZAAR) 6-[address] 100 MG 10:22: mouth 2 Hospita tablet 08 (two) l times a day. hydroCHLORO 2018-0 Yes 12.5mg QD Take 12.5 Methodi thiazide 6-[address] (MICROZIDE) 10:22: mouth Hospi ta 12.5 mg 08 every l capsule morning. amLODIPine 2018-0 Yes 10mg Q.5D Take 10 mg M ethodi (NORVASC) 6-[address] 10 mg 10:22: (two) Hospita tablet 08 times a l day. rosuvastati 2018-0 Yes 10mg QD Take 10 mg Methodi n (CRESTOR) 6-[address] 10 MG 10:22: daily. Hospita tablet 08 l losartan 2018-0 Yes 100mg Q.5D Take 100 Meth mika (COZAAR) 6-[address] 100 MG 10:22: mouth 2 Hospita tablet 08 (two) l times a day. hydroCHLORO 2018-0 Yes 12.5mg QD Take 12.5 Methodi thiazide 6-[address] (MICROZIDE) 10:22: mouth Hospi ta 12.5 mg 08 every l capsule morning. amLODIPine 2018-0 Yes 10mg Q.5D Take 10 mg M ethodi (NORVASC) 6-[address] 10 mg 10:22: (two) Hospita tablet 08 times a l day. naproxen Yes 500mg Q.5D Take 1 M ethodi (NAPROSYN) 1-[address] 500 MG 00:00: (500 mg Hospita tablet 00 total) by l mouth 2 (two) times a day with meals. naproxen Yes 500mg Q.5D Take 1 M ethodi (NAPROSYN) 1-[address] 500 MG 00:00: (500 mg Hospita tablet 00 total) by l mouth 2 (two) times a day with meals. naproxen Yes 500mg Q.5D Take 1 M ethodi (NAPROSYN) 1-[address] 500 MG 00:00: (500 mg Hospita tablet 00 total) by l mouth 2 (two) times a day with meals. Immunizations Ordered Immunization Filled Immunization Date Status Commen ts Source Name [id number] Com[facility] Mukesh nuno Faye [id number] 00:00:00 [place] [id number] 2020-06-27 Completed [facility] MRNA VACCINATION 00:00:[place] [id number] 2020-06-27 Completed [facility] MRNA VACCINATION 00:00:[place] [id number] 2020-06-27 Completed [id number] 2020-05-30 Completed Mukesh nuno Faye [id number] 00:00:00 [place] [id number] 2020-05-30 Completed [facility] t MRNA VACCINATION 00:00:00 [place] [id number] 2020-05-30 Completed [facility] M[facility] VACCINATION 00:00:00 Hospital Vital Signs Vital Name Observation Time Observation Value Comments Source HEIGHT 2019-09-15 00:00:00 182.9 cm WEIGHT 2019-09-15 00:00:00 117.2 kg HEIGHT 2020-06-02 11:47:00 182.9 cm WEIGHT 2020-06-02 11:47:00 122.471 kg HEIGHT 2020-06-02 11:47:00 182.9 cm WEIGHT 2020-06-02 11:47:00 122.471 kg HEIGHT 2019-09-15 00:00:00 182.9 cm WEIGHT 2019-09-15 00:00:00 117.2 kg Heart Rate 2022-01-15 18:11:00 [facility] [place] Systolic (mm Hg) 2022-01-15 18:11:00 Mukesh rial [place] Diastolic (mm Hg) 2022-01-15 18:11:00 Mem orial [place] Height 2022-01-15 18:11:00 182.88 cm [facility] [place] Weight 2022-01-15 18:11:00 [facility] [place] BMI Calculated 2022-01-15 18:11:00 Memori al [place] Heart Rate 2022-01-08 19:29:00 [facility] [place] Systolic (mm Hg) 2022-01-08 19:29:00 Mukesh rial [place] Diastolic (mm Hg) 2022-01-08 19:29:00 Mem orial [place] Height 2022-01-08 19:29:00 182.88 cm [facility] [place] Weight 2022-01-08 19:29:00 [facility] [place] BMI Calculated 2022-01-08 19:29:00 Memori al [place] Systolic (mm Hg) 2022-01-05 17:12:00 Mukesh rial [place] Diastolic (mm Hg) 2022-01-05 17:12:00 Mem orial [place] Respitory Rate 2022-01-05 17:12:00 Memori al [place] Temperature Oral (F) 2022-01-05 17:12:00 97.8 F [facility] [place] Heart Rate 2022-01-05 17:12:00 [facility] [place] Temperature Oral (F) 2022-01-05 13:13:00 98.8 F [facility] [place] Heart Rate 2022-01-05 13:13:00 [facility] [place] Systolic (mm Hg) 2022-01-05 13:13:00 Mukesh rial [place] Diastolic (mm Hg) 2022-01-05 13:13:00 [facility] [place] Respitory Rate 2022-01-05 13:13:00 [facility] [place] Temperature Oral (F) 2022-01-05 08:00:00 98.4 F [facility] [place] Heart Rate 2022-01-05 08:00:00 [facility] [place] Respitory Rate 2022-01-05 08:00:00 [facility] [place] Systolic (mm Hg) 2022-01-05 08:00:00 Mukesh rial [place] Diastolic (mm Hg) 2022-01-05 08:00:00 [facility] Height 2022-01-04 17:39:00 182.88 cm [facility] Height 2022-01-02 05:54:00 182.88 cm [facility] Weight 2022-01-02 05:54:00 [facility] BMI Calculated 2022-01-02 05:54:00 Memori al [facility] Height 2022-01-01 19:26:00 185.42 cm [facility] BMI Calculated 2022-01-01 19:26:00 [facility] Weight 2022-01-01 19:26:00 [facility] Temperature Oral (F) 2021-12-14 18:22:00 98.1 F [facility] Heart Rate 2021-12-14 18:22:00 [facility] Systolic (mm Hg) 2021-12-14 18:22:00 Mukesh rial [facility] Diastolic (mm Hg) 2021-12-14 18:22:00 [facility] Height 2021-12-14 18:22:00 182.88 cm [facility] Weight 2021-12-14 18:22:00 [facility] BMI Calculated 2021-12-14 18:22:00 [facility]ori [facility] Procedures Procedure Date / Time Performing Clinician Source Performed CT CHEST WITHOUT IV 2020-09-05 13:03:00 Bobbi, [facility]aben [facility] Stomach operation [facility] nn Ankle reconstruction [facility] Shoulder repair [facility] Plan of Care Planned Activity Planned Date Details Comments Source Future Scheduled 2022-01-24 INFLUENZA VACCINE (#1) [facility] 00:[facility]:00 [code = INFLUENZA Medical Ce nter VACCINE (#1)] Future Scheduled 2022-01-22 HEPATITIS B VACCINES Met [facility] Test 02:26:34 (1 of 3 - 3-dose series) [code = HEPATITIS B VACCINES (1 of 3 - 3-dose series)] Future Scheduled 2022-01-22 65+ P[facility]UMOCOCCAL [facility] Test 02:26:34 VACCINE (1 - PCV) [code = 65+ PNEUMOCOCCAL VACCINE (1 - PCV)] Future Scheduled 2022-01-22 Hepatitis C screening [facility] Test 02:26:34 (procedure) [code = 899040966] Future Scheduled 2022-01-22 SHINGLES VACCINES (1 Met [facility] Test 02:26:34 of 2) [code = SHINGLES VACCINES (1 of 2)] Future Scheduled 2022-01-22 COLONOSCOPY SCREENING [facility] Test 02:26:34 [code = COLONOSCOPY SCREENING] Future Scheduled 2022-01-22 COVID-19 VACCINE (3 - Me [facility] Test 02:26:34 Booster for Moderna series) [code = COVID-19 VACCINE (3 - Booster for Moderna series)] Future Scheduled 2022-01-22 INFLUENZA VACCINE Method [facility] Test 02:26:34 [code = INFLUENZA VACCINE] Future Scheduled 2021-05-[address] [facility] Test 00:00:00 (12+) [code = Medical Center DEPRESSION SCREENING (12+)] Future Scheduled 2021-05-26 FALLS RISK SCREENING [facility] Test 00:00:00 [code = FALLS RISK Medical C enter SCREENING] Future Scheduled 2021-04-18 Hepatitis C screening [facility] Test 02:11:59 (procedure) [code = [id number]] Future Scheduled 2021-04-18 COLONOSCOPY SCREENING [facility] Test 02:11:59 [code = COLONOSCOPY SCREENING] Future Scheduled 2021-04-18 SHINGLES VACCINES (#1) [facility] 02:11:59 [code = SHINGLES VACCINES (#1)] Future Scheduled 2021-04-18 INFLUENZA VACCINE [facility] Test 02:11:59 [code = INFLUENZA VACCINE] Future Scheduled 2021-04-18 COVID-19 VACCINE (3 - Me [facility] Test 02:11:59 Booster for Moderna series) [code = COVID-19 VACCINE (3 - Booster for Moderna series)] Future Scheduled 2021-04-18 65+ [facility]OCOCCAL [facility] Test 02:11:59 VACCINE (1 of 4 - PCV13) [code = 65+ PNEUMOCOCCAL VACCINE (1 of 4 - PCV13)] Future Scheduled 2021-04-18 Hepatitis C screening [facility] Test 02:11:59 (procedure) [code = [id number]] Future Scheduled 2021-04-18 COLONOSCOPY SCREENING [facility] Test 02:11:59 [code = COLONOSCOPY SCREENING] Future Scheduled 2021-04-18 SHINGLES [facility]ACCINES (#1) [facility] Test 02:11:59 [code = SHINGLES VACCINES (#1)] Future Scheduled 2021-04-18 INFLUENZA VACCINE [facility] Test 02:11:59 [code = INFLUENZA VACCINE] Future Scheduled 2021-04-18 COVID-19 VACCINE (3 - [facility] Test 02:11:59 Booster for Moderna series) [code = COVID-19 VACCINE (3 - Booster for Moderna series)] Future Scheduled 2021-04-18 65+ PNEUMOCOCCAL [facility] Test 02:11:59 VACCINE (1 of 4 - PCV13) [code = 65+ PNEUMOCOCCAL VACCINE (1 of 4 - PCV13)] Future Scheduled 2021-01-24 INFLUENZA VACCINE (#1) [facility]:00[facility]00 [code = INFLUENZA Medical Ce nter VACCINE (#1)] Future Scheduled 2021-01-24 INFLUENZA VACCINE (#1) [facility] 00:00:00 [code = INFLUENZA Medical Ce nter VACCINE (#1)] Future Scheduled 2020-05-[address] [facility] Test 00:00:00 (12+) [code = Medical Center DEPRESSION SCREENING (12+)] Future Scheduled 2020-05-26 FALLS RISK SCREENING [facility] Test 00:00:00 [code = FALLS RISK Medical C enter SCREENING] Future Scheduled 2020-05-[address] [facility] Test 00:00:00 (12+) [code = Medical Center DEPRESSION SCREENING (12+)] Future Scheduled 2020-05-26 FALLS RISK SCREENING [facility] Test 00:00:00 [code = FALLS RISK Medical C enter SCREENING] Future Scheduled 2020-03-[address] [facility] Test 00:00:00 [facility] (procedure) [code = [id number]] Future Scheduled 2020-03-[address] [facility] Test 00:00:00 measurement Medical Center (procedure) [code = 39596568] Future Scheduled 2020-03-[address] [facility] Test 00:00:00 measurement Medical Center (procedure) [code = 18765369] Future Scheduled 2011-04-[address] [facility] Test 00:00:00 WELLNESS (YEAR 2 or Medical Center FIRST YEAR if no IPPE) [code = MEDICARE ANNUAL WELLNESS (YEAR 2 or FIRST YEAR if no IPPE)] Future Scheduled 2011-04-[address] [facility] Test 00:00:00 WELLNESS (YEAR 2 or Medical Center FIRST YEAR if no IPPE) [code = MEDICARE ANNUAL WELLNESS (YEAR 2 or FIRST YEAR if no IPPE)] Future Scheduled 2011-04-[address] [facility] 00:00:00 WELLNESS (YEAR 2 or Medical Center FIRST YEAR if no IPPE) [code = MEDICARE ANNUAL WELLNESS (YEAR 2 or FIRST YEAR if no IPPE)] Future Scheduled 2010 PNEUMOCOCCAL 65+ [facility] Test 00:00:00 (1 of 1 - Medical Center [id number] PCV13) [code = PNEUMOCOCCAL 65+ YRS (1 of 1 - [id number] PCV13)] Future Scheduled 2010 PNEUMOCOCCAL 65+ [facility] Test 00:00:00 (1 of 1 - Medical Center [id number] PCV13) [code = PNEUMOCOCCAL 65+ YRS (1 of 1 - [id number] PCV13)] Future Scheduled 1995 SHINGLES VACCINES ([address] [facility] Test 00:00:00 of 2) [code = SHINGLES Medic al Center VACCINES (1 of 2)] Future Scheduled 1995 SHINGLES VACCINES ([address] [facility] Test 00:00:00 of 2) [code = SHINGLES Medic al Center VACCINES (1 of 2)] Future Scheduled 1995 SHINGLES VACCINES ([address] [facility] Test 00:00:00 of 2) [code = SHINGLES Medic al Center VACCINES (1 of 2)] Future Scheduled 1964 DTAP/TDAP/TD [facility]ACCINES [facility] 00:00:00 (1 - Tdap) [code = Medical C enter DTAP/TDAP/TD VACCINES (1 - Tdap)] Future Scheduled 1964 DTAP/TDAP/TD [facility]ACCINES [facility] 00:00:00 (1 - Tdap) [code = Medical C enter DTAP/TDAP/TD VACCINES (1 - Tdap)] Future Scheduled 1964 DTAP/TDAP/TD [facility]ACCINES [facility] 00:00:00 (1 - Tdap) [code = Medical C enter DTAP/TDAP/TD VACCINES (1 - Tdap)] Future Scheduled 1957 COVID-19 VACCINE (1) [facility] Test 00:00:00 [code = COVID-[address] VACCINE (1)] Future Scheduled 1957 COVID-19 VACCINE (1) [facility] Test 00:00:00 [code = COVID-[address] VACCINE (1)] Future Scheduled [address] EYE EXAM [facility] Test 00:00:00 [code = DIABETIC EYE Medical Center EXAM] Future Scheduled 1955 Urine screening for [facility] Test 00:00:00 protein (procedure) Medical Center [code = 705716353] Future Scheduled [address]ABETIC EYE EXAM [facility] Test 00:00:00 [code = DIABETIC EYE Medical Center EXAM] Future Scheduled 1955 Urine screening [facility] Test 00:00:00 protein (procedure) Medical Center [code = 706459778] Future Scheduled 1955 DIABETIC EYE EXAM [facility] Test 00:00:00 [code = DIABETIC EYE Medical Center EXAM] Future Scheduled 1955 Urine screening [facility] Test 00:00:00 protein (procedure) Medical Center [code = 155601750] Future Scheduled 1951 PNEUMOCOCCAL 65+ [facility] Test 00:00:00 (1 - PCV) [code = Medical Ce nter PNEUMOCOCCAL 65+ YRS (1 - PCV)] Future Scheduled 1945 COVID-19 VACCINE (#1) [facility] 00:00:00 [code = COVID-[address] VACCINE (#1)] Future Scheduled [address] [facility] Test 00:00:00 malignant neoplasm of Medica l Center colon (procedure) [code = 360447809] Future Scheduled [address] [facility] Test 00:00:00 malignant neoplasm of Medica l Center colon (procedure) [code = 899917777] Encounters Start End Encounter Admission Attending Care Care Encounter Source Date/Time Date/Time Type Type Clinicians Facility Department ID 2021-06-21 Outpatient NEW ENCCLR ENCCLR [id number] EN CCLR 09:49:02 ADMISSION 2021-06-21 Outpatient 3 SYED, RC IVET [id number] ENCHU 09:47:34 [place] [id number] 2021-06-21 Outpatient 3 [id number] ENCHU REF [id number] ENCHU 09:47:05 [id number] 2019-09-15 Inpatient ER ANIRUDH SLE Emergency [id number] [facility] 16:35:29 ROSS JENNINGS 2022-01-16 2022-01-17 Between nullFlavo MG [id number] [facility]oria 17:27:34 17:27:34 Visit r Primary 05 l Care Sekou Wise 2022-01-16 2022-01-17 Outpatient MG MG [id number] 12:27:34 12:27:34 05 2022-01-15 2022-01-16 [place] [id number] Memoria 18:00:00 04:59:59 r Primary 02 l Sita Wise 2022-01-15 2022-01-15 Outpatient JAMES Diaz [id number] 13:00:00 23:59:59 Franco Maroa 2022-01-15 2022-01-15 Outpatient TAMELA RAPP [id number] [facility] 13:00:00 13:00:00 02 vaughn Faye 2022-01-08 2022-01-09 [place] [id number] Memoria 19:30:00 04:59:59 r Primary 01 l Care Sekou Billie 2022-01-08 2022-01-08 Outpatient JAMES Diaz MG [id number] 14:30:00 23:59:59 Franco Maroa 2022-01-08 2022-01-08 Outpatient CELINA [facility] [id number] Memoria 14:30:00 14:30:00 01 l Yunier 2022-01-01 2022-01-05 Inpatient nullFlavo [facility] [id number] Memoria 19:23:47 17:57:00 r Yunier 03 [facility] 2022-01-01 2022-01-05 Outpatient MALU Najera [facility] [id number] 14:23:47 12:57:00 2022-01-01 2022-01-05 Outpatient MALU Najera [facility] [id number] 14:23:47 12:57:00 Deonte 2021-12-18 2021-12-19 Between nullFlavo [facility] [id number] Memoria 22:48:53 22:48:53 Visit r Primary 02 l Care Sekou Wise 2021-12-18 2021-12-19 Outpatient [facility] [id number] 17:48:53 17:48:53 02 2021-12-14 2021-12-15 Outpatient nullFlavo [facility] [id number] Memoria 18:15:00 04:59:59 r Primary 00 l Care Sekou Wise 2021-12-14 2021-12-14 Outpatient Joe [facility] [id number] 13:15:00 23:59:59 Franco 00 Dylan 2021-12-14 2021-12-14 Outpatient TAMELA CELINA [id number] Memoria 13:15:00 13:15:00 00 vaughn Faye 2020-12-19 2020-12-19 Outpatient [facility] [id number] [facility] 15:47:55 16:50:59 [facility] 2020-12-19 2020-12-19 Outpatient KRISTY, [facility] [place] [id number] [facility] 15:47:35 16:22:05 FIDAA [facility] 2020-09-06 2020-09-06 Outpatient M [facility] [id number] [facility] 13:24:55 15:41:25 [facility] 2020-09-05 2020-09-05 [facility] [id number] 12:20:00 23:59:00 Encounter Serg Le [facility] 2020-09-05 2020-09-05 Outpatient EL BOBBI, [facility] [id number] SLE 00:00:00 00:00:00 DIPABEN 2020-09-05 2020-09-05 Orders Bobbi, [facility] [id number] 00:00:00 00:00:00 Only Serg Alanis Rey [facility] 2020-06-27 2020-08-07 Clinical [id number] Methodi 08:44:38 14:40:[id number] 3.430.2.7 Hospit a .3.109680 l .8 2020-06-02 2020-06-02 Emergency ER [facility] Emergency [id number] [facility] 11:27:00 11:27:00 2020-05-30 2020-05-30 Outpatient [facility] [id number] [place] 00:00:00 00:00:[address] 2019-09-15 2019-09-15 Emergency [facility] [id number] [facility] 16:22:00 16:22:00 [id number] 2019-07-23 2019-07-23 Outpatient SIFF, [facility] [id number] [place] 00:00:00 00:00:00 JOHNNY [address] Results Test Description Test Time Test Comments Results Result Comments Source CHEM PANEL 2022-01-15 18:25:00 Test Item Value Reference Range Interpretation Comme nts Glucose Lvl (test code = Glucose Lvl) 93 65-139 [facility] [place] [id number] 18:25:00 Test Item Value Reference Range Interpretation Comments BUN (test code = BUN) 36 7-25 [facility] [place] [id number] 18:25:00 Test Item Value Reference Range Interpretation Comments Creatinine Lvl (test code = Creatinine 3.57 0.70-1.28 Lvl) [facility] [id number] 18:25:00 Test Item Value Reference Range Interpretation Comments eGFR (test code = eGFR) 17 [place] 163802-08-23 18:25:00 Test Item Value Reference Range Interpretation Comments B/C Ratio (test code = B/C Ratio) 10 6-22 [place] 163802-08-23 18:25:00 Test Item Value Reference Range Interpretation Comments Sodium Lvl (test code = Sodium Lvl) 135 135-146 [place] 163802-08-23 18:25:00 Test Item Value Reference Range Interpretation Comments Potassium Lvl (test code = Potassium 4.9 3.5-5.3 Lvl) [facility]2022-08-23 18:25:00 Test Item Value Reference Range Interpretation Comments Chloride Lvl (test code = Chloride Lvl) 102 98-110 [facility] [id number] 18:25:00 Test Item Value Reference Range Interpretation Comments CO2 (test code = CO2) 23 20-32 [place] 163802-08-23 18:25:00 Test Item Value Reference Range Interpretation Comments Calcium Lvl (test code = Calcium Lvl) 7.7 8.6-10.3 [facility] [id number] 09:37:00 Test Item Value Reference Range Interpretation Comments ALT (test code = ALT) 312 See_Comment [Auto mated message] The system which ge nerated this result transmit debbie reference range : <=65. The reference range was not used to interpr et this result as rhiannon l/abnormal. [facility] [id number] 09:37:00 Test Item Value Reference Range Interpretation Comments AST (test code = AST) 148 See_Comment [Auto mated message] The system which ge nerated this result transmit debbie reference range : <=37. The reference range was not used to interpr et this result as rhiannon l/abnormal. [facility] [id number] 09:37:00 Test Item Value Reference Range Interpretation Comments Alk Phos (test code = Alk Phos) 119 39-136 [facility] [id number] 09:37:00 Test Item Value Reference Range Interpretation Comments Bili Total (test code = Bili Total) 1.3 0.2-1.3 [facility] [id number] 09:37:00 Test Item Value Reference Range Interpretation Comments eGFR (test code = eGFR) 22 [place] 163802-08-13 09:37:00 Test Item Value Reference Range Interpretation Comments Glucose Lvl (test code = Glucose Lvl) 94 70-99 [place] 163802-08-13 09:37:00 Test Item Value Reference Range Interpretation Comments BUN (test code = BUN) 79 7-22 [place] 163802-08-13 09:37:00 Test Item Value Reference Range Interpretation Comments Creatinine Lvl (test code = Creatinine 2.88 0.50-1.40 Lvl) [place] 163802-08-13 09:37:00 Test Item Value Reference Range Interpretation Comments Sodium Lvl (test code = Sodium Lvl) 146 135-145 [place] 163802-08-13 09:37:00 Test Item Value Reference Range Interpretation Comments Potassium Lvl (test code = Potassium 3.6 3.5-5.1 Lvl) [place] 163802-08-13 09:37:00 Test Item Value Reference Range Interpretation Comments Chloride Lvl (test code = Chloride Lvl) 114 95-109 [place] 163802-08-13 09:37:00 Test Item Value Reference Range Interpretation Comments CO2 (test code = CO2) 24 24-32 [place] 163802-08-13 09:37:00 Test Item Value Reference Range Interpretation Comments AGAP (test code = AGAP) 11.6 10.0-20.0 [place] 163802-08-13 09:37:00 Test Item Value Reference Range Interpretation Comments Calcium Lvl (test code = Calcium Lvl) 7.9 8.5-10.5 [place] 163802-08-13 09:37:00 Test Item Value Reference Range Interpretation Comments B/C Ratio (test code = B/C Ratio) 27 1 6-25 [place] 163802-08-13 09:37:00 Test Item Value Reference Range Interpretation Comments Total Protein (test code = Total 5.1 6.4-8.4 Protein) [place] 163802-08-13 09:37:00 Test Item Value Reference Range Interpretation Comments Albumin Lvl (test code = Albumin Lvl) 2.3 3.5-5.0 [place] 163802-08-13 09:37:00 Test Item Value Reference Range Interpretation Comments Globulin (test code = Globulin) 2.8 2.7-4.2 [place] 163802-08-13 09:37:00 Test Item Value Reference Range Interpretation Comments A/G Ratio (test code = A/G Ratio) 0.8 1 0.7-1.6 [place] 163802-08-12 10:01:00 Test Item Value Reference Range Interpretation Comments Glucose Lvl (test code = Glucose Lvl) 92 70-99 [facility]2022-08-12 10:01:00 Test Item Value Reference Range Interpretation Comments BUN (test code = BUN) 116 7-22 [facility]2022-08-12 10:01:00 Test Item Value Reference Range Interpretation Comments Creatinine Lvl (test code = Creatinine 4.09 0.50-1.40 Lvl) [facility]2022-08-12 10:01:00 Test Item Value Reference Range Interpretation Comments Sodium Lvl (test code = Sodium Lvl) 146 135-145 [facility]2022-08-12 10:01:00 Test Item Value Reference Range Interpretation Comments Potassium Lvl (test code = Potassium 3.8 3.5-5.1 Lvl) [facility]2022-08-12 10:01:00 Test Item Value Reference Range Interpretation Comments Chloride Lvl (test code = Chloride Lvl) 114 95-109 [facility]2022-08-12 10:01:00 Test Item Value Reference Range Interpretation Comments CO2 (test code = CO2) 23 24-32 [facility]2022-08-12 10:01:00 Test Item Value Reference Range Interpretation Comments Calcium Lvl (test code = Calcium Lvl) 8.2 8.5-10.5 [facility]2022-08-12 10:01:00 Test Item Value Reference Range Interpretation Comments Total Protein (test code = Total 5.5 6.4-8.4 Protein) [facility]2022-08-12 10:01:00 Test Item Value Reference Range Interpretation Comments Albumin Lvl (test code = Albumin Lvl) 2.5 3.5-5.0 [place] 163802-08-12 10:01:00 Test Item Value Reference Range Interpretation Comments ALT (test code = ALT) 377 See_Comment [Auto mated message] The system which ge nerated this result transmit debbie reference range : <=65. The reference range was not used to interpr et this result as rhiannon l/abnormal. [facility] [id number] 10:01:00 Test Item Value Reference Range Interpretation Comments AST (test code = AST) 203 See_Comment [Auto mated message] The system which ge nerated this result transmit debbie reference range : <=37. The reference range was not used to interpr et this result as rhiannon l/abnormal. [facility] [id number] 10:01:00 Test Item Value Reference Range Interpretation Comments Alk Phos (test code = Alk Phos) 122 39-136 [facility] [id number] 10:01:00 Test Item Value Reference Range Interpretation Comments Bili Total (test code = Bili Total) 1.2 0.2-1.3 [facility] [id number] 10:01:00 Test Item Value Reference Range Interpretation Comments AGAP (test code = AGAP) 12.8 10.0-20.0 [facility] [id number] 10:01:00 Test Item Value Reference Range Interpretation Comments B/C Ratio (test code = B/C Ratio) 28 1 6-25 [facility] [id number] 10:01:00 Test Item Value Reference Range Interpretation Comments Globulin (test code = Globulin) 3.0 2.7-4.2 [facility] [id number] 10:01:00 Test Item Value Reference Range Interpretation Comments A/G Ratio (test code = A/G Ratio) 0.8 1 0.7-1.6 [facility] [id number] 10:01:00 Test Item Value Reference Range Interpretation Comments eGFR (test code = eGFR) 14 [id number] 10:01:00 Test Item Value Reference Range Interpretation Comments Segs (test code = Segs) 70.7 45.0-75.0 [facility] Center[facility]omaerhHBDNIBZOPW4441-00-45 10:01:00 Test Item Value Reference Range Interpretation Comments Lymphocytes (test code = Lymphocytes) 19.8 20.0-40.0 [facility] [id number] 10:01:00 Test Item Value Reference Range Interpretation Comments Monocytes (test code = Monocytes) 7.8 2.0-12.0 [id number] 10:01:00 Test Item Value Reference Range Interpretation Comments Eosinophils (test code = 1.1 See_Comment [A utomated message] The Eosinophils) system which ge nerated this result tra nsmitted reference range : <=4.0. The reference r tomasa was not used to int erpret this result as normal/abnormal . [facility] Ha[id number] 10:01:00 Test Item Value Reference Range Interpretation Comments Basophils (test code = 0.6 See_Comment [Aut omated message] The Basophils) system which ge nerated this result tra nsmitted reference range : <=1.0. The reference r tomasa was not used to int erpret this result as normal/abnormal . [id number] 10:01:00 Test Item Value Reference Range Interpretation Comments Neutrophils # (test code = Neutrophils 5.5 1.5-8.1 #) [facility] Ha[id number] 10:01:00 Test Item Value Reference Range Interpretation Comments Lymphocytes # (test code = Lymphocytes 1.5 1.0-5.5 #) [id number] 10:01:00 Test Item Value Reference Range Interpretation Comments Monocytes # (test code 0.6 See_Comment [Aut omated message] The = Monocytes #) system which generated this result tra nsmitted reference range : <=0.8. The reference r tomasa was not used to int erpret this result as normal/abnormal . [id number] 10:01:00 Test Item Value Reference Range Interpretation Comments Eosinophils # (test code 0.1 See_Comment [A utomated message] The = Eosinophils #) system whic h generated this result tra nsmitted reference range : <=0.5. The reference r tomasa was not used to int erpret this result as normal/abnormal . [id number] 10:01:00 Test Item Value Reference Range Interpretation Comments WBC (test code = WBC) 7.7 3.7-10.4 [id number] 10:01:00 Test Item Value Reference Range Interpretation Comments RBC (test code = RBC) 3.94 4.70-6.10 [place] [address]-08-12 10:01:00 Test Item Value Reference Range Interpretation Comments Hgb (test code = Hgb) 11.3 14.0-18.0 [place] [address]-08-12 10:01:00 Test Item Value Reference Range Interpretation Comments Hct (test code = Hct) 33.8 42.0-54.0 [place] [address]-08-12 10:01:00 Test Item Value Reference Range Interpretation Comments MCV (test code = MCV) 85.8 80.0-94.0 [place] [address]-08-12 10:01:00 Test Item Value Reference Range Interpretation Comments MCH (test code = MCH) 28.6 pg 27.0-31.0 [place] [address]-08-12 10:01:00 Test Item Value Reference Range Interpretation Comments MCHC (test code = MCHC) 33.4 32.0-36.0 [facility] [place] [address]-08-12 10:01:00 Test Item Value Reference Range Interpretation Comments RDW (test code = RDW) 17.7 11.5-14.5 [place] [address]-08-12 10:01:00 Test Item Value Reference Range Interpretation Comments Platelet (test code = Platelet) 197 133-450 [facility]enOykfijdJKTSBZACEI1409-09-79 10:01:00 Test Item Value Reference Range Interpretation Comments MPV (test code = MPV) 7.9 7.4-10.4 [facility]2022-08-11 09:34:00 Test Item Value Reference Range Interpretation Comments Glucose Lvl (test code = Glucose Lvl) 96 70-99 [place] 163802-08-11 09:34:00 Test Item Value Reference Range Interpretation Comments BUN (test code = BUN) 159 7-22 [facility]2022-08-11 09:34:00 Test Item Value Reference Range Interpretation Comments Creatinine Lvl (test code = Creatinine 5.63 0.50-1.40 Lvl) [facility]2022-08-11 09:34:00 Test Item Value Reference Range Interpretation Comments Sodium Lvl (test code = Sodium Lvl) 142 135-145 [place] 163802-08-11 09:34:00 Test Item Value Reference Range Interpretation Comments Potassium Lvl (test code = Potassium 3.6 3.5-5.1 Lvl) [place] 163802-08-11 09:34:00 Test Item Value Reference Range Interpretation Comments Chloride Lvl (test code = Chloride Lvl) 109 95-109 [place] 163802-08-11 09:34:00 Test Item Value Reference Range Interpretation Comments CO2 (test code = CO2) 22 24-32 [place] 163802-08-11 09:34:00 Test Item Value Reference Range Interpretation Comments AGAP (test code = AGAP) 14.6 10.0-20.0 [place] 163802-08-11 09:34:00 Test Item Value Reference Range Interpretation Comments Calcium Lvl (test code = Calcium Lvl) 7.5 8.5-10.5 [place] 163802-08-11 09:34:00 Test Item Value Reference Range Interpretation Comments B/C Ratio (test code = B/C Ratio) 28 1 6-25 [place] 163802-08-11 09:34:00 Test Item Value Reference Range Interpretation Comments Total Protein (test code = Total 5.1 6.4-8.4 Protein) [place] 163802-08-11 09:34:00 Test Item Value Reference Range Interpretation Comments Albumin Lvl (test code = Albumin Lvl) 2.3 3.5-5.0 [place] 163802-08-11 09:34:00 Test Item Value Reference Range Interpretation Comments Globulin (test code = Globulin) 2.8 2.7-4.2 [place] 163802-08-11 09:34:00 Test Item Value Reference Range Interpretation Comments A/G Ratio (test code = A/G Ratio) 0.8 1 0.7-1.6 [place] [address]-08-11 09:34:00 Test Item Value Reference Range Interpretation Comments ALT (test code = ALT) 333 See_Comment [Auto mated message] The system which ge nerated this result transmit debbie reference range : <=65. The reference range was not used to interpr et this result as rhiannon l/abnormal. [facility] [id number] 09:34:00 Test Item Value Reference Range Interpretation Comments AST (test code = AST) 180 See_Comment [Auto mated message] The system which ge nerated this result transmit debbie reference range : <=37. The reference range was not used to interpr et this result as rhiannon l/abnormal. [facility]2022-08-11 09:34:00 Test Item Value Reference Range Interpretation Comments Alk Phos (test code = Alk Phos) 96 39-136 [facility]2022-08-11 09:34:00 Test Item Value Reference Range Interpretation Comments Bili Total (test code = Bili Total) 1.0 0.2-1.3 [facility] VCJSW2820-00-34 09:34:00 Test Item Value Reference Range Interpretation Comments eGFR (test code = eGFR) 10 [facility]enBlrbbqaBLSWHFFDPO9011-17-63 09:34:00 Test Item Value Reference Range Interpretation Comments WBC (test code = WBC) 5.3 3.7-10.4 [place] 589622-08-11 09:34:00 Test Item Value Reference Range Interpretation Comments RBC (test code = RBC) 3.75 4.70-6.10 [facility]lingenSxukwprESWSSCBXMP3594-72-87 09:34:00 Test Item Value Reference Range Interpretation Comments Hgb (test code = Hgb) 10.7 14.0-18.0 [place] 589622-08-11 09:34:00 Test Item Value Reference Range Interpretation Comments Hct (test code = Hct) 32.3 42.0-54.0 [place] 589622-08-11 09:34:00 Test Item Value Reference Range Interpretation Comments MCV (test code = MCV) 86.0 80.0-94.0 [place] [address]-08-11 09:34:00 Test Item Value Reference Range Interpretation Comments MCH (test code = MCH) 28.6 pg 27.0-31.0 [place] 589622-08-11 09:34:00 Test Item Value Reference Range Interpretation Comments MCHC (test code = MCHC) 33.2 32.0-36.0 [place] [address]-08-11 09:34:00 Test Item Value Reference Range Interpretation Comments RDW (test code = RDW) 17.6 11.5-14.5 [place] [address]-08-11 09:34:00 Test Item Value Reference Range Interpretation Comments Platelet (test code = Platelet) 142 133-450 [place] 589622-08-11 09:34:00 Test Item Value Reference Range Interpretation Comments MPV (test code = MPV) 7.5 7.4-10.4 [facility]enVeevzdqFEWJORTVLX3210-48-53 09:34:00 Test Item Value Reference Range Interpretation Comments Segs (test code = Segs) 75.8 45.0-75.0 [facility]lingenDyfbbljNFWVZAPIJS9241-91-36 09:34:00 Test Item Value Reference Range Interpretation Comments Lymphocytes (test code = Lymphocytes) 12.6 20.0-40.0 [place] 589622-08-11 09:34:00 Test Item Value Reference Range Interpretation Comments Monocytes (test code = Monocytes) 9.8 2.0-12.0 [facility]lingenLlbrmrwVADROUDLLK8352-40-85 09:34:00 Test Item Value Reference Range Interpretation Comments Eosinophils (test code = 1.1 See_Comment [A utomated message] The Eosinophils) system which ge nerated this result tra nsmitted reference range : <=4.0. The reference r tomasa was not used to int erpret this result as normal/abnormal . [facility]enWisxmwzUTDOIBWKJZ5215-96-54 09:34:00 Test Item Value Reference Range Interpretation Comments Basophils (test code = 0.7 See_Comment [Aut omated message] The Basophils) system which ge nerated this result tra nsmitted reference range : <=1.0. The reference r tomasa was not used to int erpret this result as normal/abnormal . [facility]enAnvwjnmRWDADBKKUY9006-49-39 09:34:00 Test Item Value Reference Range Interpretation Comments Neutrophils # (test code = Neutrophils 4.0 1.5-8.1 #) [place] 589622-08-11 09:34:00 Test Item Value Reference Range Interpretation Comments Lymphocytes # (test code = Lymphocytes 0.7 1.0-5.5 #) [place] 589622-08-11 09:34:00 Test Item Value Reference Range Interpretation Comments Monocytes # (test code 0.5 See_Comment [Aut omated message] The = Monocytes #) system which generated this result tra nsmitted reference range : <=0.8. The reference r tomasa was not used to int erpret this result as normal/abnormal . [facility] LakeSfgbnnkUSEUXMRZIK4805-10-74 09:34:00 Test Item Value Reference Range Interpretation Comments Eosinophils # (test code 0.1 See_Comment [A utomated message] The = Eosinophils #) system whic h generated this result tra nsmitted reference range : <=0.5. The reference r tomasa was not used to int erpret this result as normal/abnormal . [facility] LakeMcrhzuqMZFMMILRVU8741-83-06 09:10:00 Test Item Value Reference Range Interpretation Comments Spec Type (UPE) (test code = random, 100x Spec Type (UPE)) [facility] LakeQdgsyzzRDLUXDIDAJ0742-05-49 09:10:00 Test Item Value Reference Range Interpretation Comments Tot Prot (UPE) (test code = Tot Prot 13 (UPE)) [facility] LakeCtaisuvDUIBNUSHUO8668-88-09 09:10:00 Test Item Value Reference Range Interpretation Comments Interp (UPE) (test Urine protein code = Interp electrophoresis shows (UPE)) minimal proteinuria. No monoclonal bands are identified; however, evaluation is limited by the small amount of protein and the resulting lack of discernible bands on the electrophoretic gel. Interpretation performed at [facility]. [facility]2022-08-11 09:10:00 Test Item Value Reference Range Interpretation Comments U Prot/Creat (test code = U 0.27 1 Prot/Creat) [facility]2022-08-11 09:10:00 Test Item Value Reference Range Interpretation Comments U Creatinine (test code = U Creatinine) 55.60 [place] 232812-08-11 09:10:00 Test Item Value Reference Range Interpretation Comments U Sodium (test code = U Sodium) 45 [place] 232812-08-11 09:10:00 Test Item Value Reference Range Interpretation Comments U Protein (test code = U Protein) 15.0 [facility] [id number] 19:07:00 Test Item Value Reference Range Interpretation Comments Lactic Acid Lvl (test code = Lactic 2.5 0.5-2.2 Acid Lvl) [facility] [id number] 19:07:00 Test Item Value Reference Range Interpretation Comments Procalcitonin Lvl (test 0.71 See_Comment [Au tomated message] code = Procalcitonin Lvl) Th e system which generated this result transmitted ref erence range: <=0.10. The reference range was not used to interpr et this result as normal/abnormal . [facility]enTbazhtvKZVGEIQIOL8725-34-86 19:07:00 Test Item Value Reference Range Interpretation Comments WBC (test code = WBC) 5.7 3.7-10.4 [facility]enPsetuedGUDEBWPYPP7501-56-11 19:07:00 Test Item Value Reference Range Interpretation Comments RBC (test code = RBC) 3.90 4.70-6.10 [facility]lingenLrmqwvaQPCBZFBJYN8069-16-21 19:07:00 Test Item Value Reference Range Interpretation Comments Hgb (test code = Hgb) 11.1 14.0-18.0 [facility]lingenGoyaedhIKHWAEYLHS3540-67-94 19:07:00 Test Item Value Reference Range Interpretation Comments Hct (test code = Hct) 33.2 42.0-54.0 [facility]enDqgnbgrGHNARHKAFF3068-73-55 19:07:00 Test Item Value Reference Range Interpretation Comments MCV (test code = MCV) 85.1 80.0-94.0 [facility] HarlingenBsloxukMJCDFAEAPA9510-64-07 19:07:00 Test Item Value Reference Range Interpretation Comments MCH (test code = MCH) 28.4 pg 27.0-31.0 [facility]enWsysnbnNOVGCYZTQV3240-94-48 19:07:00 Test Item Value Reference Range Interpretation Comments MCHC (test code = MCHC) 33.4 32.0-36.0 [facility]lingenAskqbmgGXXYOBSCNU2526-17-92 19:07:00 Test Item Value Reference Range Interpretation Comments RDW (test code = RDW) 17.9 11.5-14.5 [facility]enAwsnebxDYSUUHOWVR4202-65-50 19:07:00 Test Item Value Reference Range Interpretation Comments Platelet (test code = Platelet) 174 133-450 [facility]enWxhuyusBRGMXIMFAH1652-45-76 19:07:00 Test Item Value Reference Range Interpretation Comments MPV (test code = MPV) 7.8 7.4-10.4 [facility] HarlingenBllpmnpRICHNASMFD3269-28-71 19:07:00 Test Item Value Reference Range Interpretation Comments Segs (test code = Segs) 80.9 45.0-75.0 [facility]lingenOzhzghvGYUYDTBXIE9042-80-74 19:07:00 Test Item Value Reference Range Interpretation Comments Lymphocytes (test code = Lymphocytes) 10.3 20.0-40.0 [facility] HarlingenViphlsnWGQUHTJLFB6137-27-99 19:07:00 Test Item Value Reference Range Interpretation Comments Monocytes (test code = Monocytes) 8.1 2.0-12.0 [facility] HarlingenAlarkuiZDGIDYDPBY7314-92-01 19:07:00 Test Item Value Reference Range Interpretation Comments Eosinophils (test code = 0.2 See_Comment [A utomated message] The Eosinophils) system which ge nerated this result tra nsmitted reference range : <=4.0. The reference r tomasa was not used to int erpret this result as normal/abnormal . [facility]lingenSxfphbqSCEPSINTJG5140-56-22 19:07:00 Test Item Value Reference Range Interpretation Comments Basophils (test code = 0.5 See_Comment [Aut omated message] The Basophils) system which ge nerated this result tra nsmitted reference range : <=1.0. The reference r tomasa was not used to int erpret this result as normal/abnormal . [facility] HarlingenGbonpkwHCSTYIIBSU2610-94-64 19:07:00 Test Item Value Reference Range Interpretation Comments Neutrophils # (test code = Neutrophils 4.6 1.5-8.1 #) [facility]lingenJkivrezJWVGOZJPMT7922-91-15 19:07:00 Test Item Value Reference Range Interpretation Comments Lymphocytes # (test code = Lymphocytes 0.6 1.0-5.5 #) [facility]enOgvpgkzXBEVMYRUWF0517-31-77 19:07:00 Test Item Value Reference Range Interpretation Comments Monocytes # (test code 0.5 See_Comment [Aut omated message] The = Monocytes #) system which generated this result tra nsmitted reference range : <=0.8. The reference r tomasa was not used to int erpret this result as normal/abnormal . [facility] [id number] 17:35:00 Test Item Value Reference Range Interpretation Comments Lactic Acid Lvl (test code = Lactic 2.8 0.5-2.2 Acid Lvl) [facility] AND [id number] 16:45:00 Test Item Value Reference Range Interpretation Comments UA Color (test code = Yellow *NA*(01/02/22 UA Color) 11:45 AM) [facility] [id number] 16:45:00 Test Item Value Reference Range Interpretation Comments UA Turbidity (test code Slight Cloudy = UA Turbidity) (01/02/22 11:45 AM) [facility] [id number] 16:45:00 Test Item Value Reference Range Interpretation Comments UA Spec Grav (test code = UA Spec 1.010 1 Grav) [facility] AND [id number] 16:45:00 Test Item Value Reference Range Interpretation Comments UA pH (test code = UA pH) 6.0 1 5.0-8.0 [facility] AND [id number] 16:45:00 Test Item Value Reference Range Interpretation Comments UA Protein (test code Negative (01/02/22 11:45 = UA Protein) AM) [facility] AND [id number] 16:45:00 Test Item Value Reference Range Interpretation Comments UA Glucose (test code Negative (01/02/22 11:45 = UA Glucose) AM) [facility] AND [id number] 16:45:00 Test Item Value Reference Range Interpretation Comments UA Ketones (test code Negative *NA*(01/02/22 = UA Ketones) 11:45 AM) [facility] AND [id number] 16:45:00 Test Item Value Reference Range Interpretation Comments UA Bili (test code = Negative *NA*(01/02/22 UA Bili) 11:45 AM) [facility] AND [id number] 16:45:00 Test Item Value Reference Range Interpretation Comments UA Blood (test code = Negative (01/02/22 11:45 UA Blood) AM) [facility] AND [id number] 16:45:00 Test Item Value Reference Range Interpretation Comments UA Urobilinogen (test code = UA 0.2 0.1-1.0 Urobilinogen) [facility] AND [id number] 16:45:00 Test Item Value Reference Range Interpretation Comments UA Nitrite (test code Negative (01/02/22 11:45 = UA Nitrite) AM) [facility] AND [id number] 16:45:00 Test Item Value Reference Range Interpretation Comments UA Leuk Est (test Moderate *ABN*(01/02/22 code = UA Leuk Est) 11:45 AM) [facility] [id number] 16:45:00 Test Item Value Reference Range Interpretation Comments UA Sq Epi (test code = UA Sq Occasional /LPF Epi) [facility] [id number] 16:45:00 Test Item Value Reference Range Interpretation Comments UA WBC (test code = 27 See_Comment [Automa debbie message] The UA WBC) system which ge nerated this result transmit debbie reference range : <=5. The reference range was not used to interpr et this result as rhiannon l/abnormal. [facility] [id number] 16:45:00 Test Item Value Reference Range Interpretation Comments UA RBC (test code = 2 See_Comment [Automa debbie message] The UA RBC) system which ge nerated this result transmit debbie reference range : <=2. The reference range was not used to interpr et this result as rhiannon l/abnormal. [facility] [id number] 16:45:00 Test Item Value Reference Range Interpretation Comments UA Bacteria (test code = UA Occasional /HPF Bacteria) [facility] [id number] 16:45:00 Test Item Value Reference Range Interpretation Comments UA [place] Yeast (test code = UA [place] Few /HPF Yeast) [facility] [id number] 16:45:00 Test Item Value Reference Range Interpretation Comments UA Hyph Yeast (test Occasional *ABN*(01/02/22 code = UA Hyph 11:45 AM) Yeast) [facility] [id number] 16:45:00 Test Item Value Reference Range Interpretation Comments U Eos (test code = U None Seen (01/02/22 Eos) 11:45 AM) [facility] ZhhvnonCUFZZVBQST2959-94-66 15:17:00 Test Item Value Reference Range Interpretation Comments Hep A IgM (test code = Hep A NON-REACTIVE IgM) [facility] NoysemuXKVPRJLDHX1219-97-28 15:17:00 Test Item Value Reference Range Interpretation Comments Hep Bs Ag (test code = Hep Bs NON-REACTIVE Ag) [facility] XrxpqwyVJOMHESAKR1052-68-06 15:17:00 Test Item Value Reference Range Interpretation Comments Hep B Core IgM (test code = Hep NON-REACTIVE B Core IgM) [facility] XbkohxnTZSGGXPBYX4895-74-68 15:17:00 Test Item Value Reference Range Interpretation Comments Hep C Ab (test code = Hep C Ab) NON-REACTIVE [facility] CenterYggzyffGZUOBYBCXQ2196-09-94 15:17:00 Test Item Value Reference Range Interpretation Comments Hep Signal to Cut-Off (test code = Hep 0.10 1 Signal to Cut-Off) [facility] CenterKpubhtjGPSSDEGJOS8409-71-80 15:17:00 Test Item Value Reference Range Interpretation Comments LOGAN (test code = LOGAN) NEGATIVE [facility] LakeQykfuirFIXTRQMGHN5146-13-29 15:17:00 Test Item Value Reference Range Interpretation Comments AMA Ab Scr (test code = AMA Ab Scr) NEGATIVE [facility] LakeXoimlryRJZCNBKUTC5123-00-52 15:17:00 Test Item Value Reference Range Interpretation Comments SMA Screen (test code = SMA Screen) NEGATIVE [facility]2022-08-10 11:35:00 Test Item Value Reference Range Interpretation Comments U Sodium (test code = U Sodium) 23 [facility] [id number] 11:35:00 Test Item Value Reference Range Interpretation Comments U Potassium (test code = U Potassium) 26.8 [facility] [id number] 11:35:00 Test Item Value Reference Range Interpretation Comments U Chloride (test code = U Chloride) 21 [facility] LakePop[facility]al [id number] 09:08:00 Test Item Value Reference Range Interpretation Comments Lactic Acid Lvl (test code = Lactic 1.1 0.5-2.2 Acid Lvl) [facility] Lake[facility] [id number] 05:59:00 Test Item Value Reference Range Interpretation Comments Lipase Lvl (test code = Lipase Lvl) 349 73-393 [facility] CenterCfqxqnoPKGKLJRMCO0873-95-57 19:47:00 Test Item Value Reference Range Interpretation Comments Coronavirus (COVID-19) Not Detected (01/01/22 GHASSAN (test code = 2:47 PM) Coronavirus (COVID-19) GHASSAN) [facility] LakeTrackIF [id number] 19:41:00 Test Item Value Reference Range Interpretation Comments BNP (test code = BNP) 122 [facility] [id number] 19:41:00 Test Item Value Reference Range Interpretation Comments Total CK (test code = Total CK) 26 12-191 [facility] LakeCARDIAC [id number] 19:41:00 Test Item Value Reference Range Interpretation Comments HS Troponin I (test code = HS Troponin 111 I) [facility]AswdxjcPVDWRCBBLL3976-82-61 19:41:00 Test Item Value Reference Range Interpretation Comments Basophils # (test code 0.1 See_Comment [Aut omated message] The = Basophils #) system which generated this result tra nsmitted reference range : <=0.2. The reference r tomasa was not used to int erpret this result as normal/abnormal . [facility] [id number] 19:14:00 Test Item Value Reference Range Interpretation Comments Glucose Lvl (test code = Glucose Lvl) 130 65-139 [facility] [id number] 19:14:00 Test Item Value Reference Range Interpretation Comments BUN (test code = BUN) 124 7-25 [facility] [id number] 19:14:00 Test Item Value Reference Range Interpretation Comments Creatinine Lvl (test code = Creatinine 4.67 0.70-1.28 Lvl) [facility] [id number] 19:14:00 Test Item Value Reference Range Interpretation Comments eGFR (test code = eGFR) 12 [facility] [id number] 19:14:00 Test Item Value Reference Range Interpretation Comments B/C Ratio (test code = B/C Ratio) 27 6-22 [facility] [id number] 19:14:00 Test Item Value Reference Range Interpretation Comments Sodium Lvl (test code = Sodium Lvl) 133 135-146 [facility] [id number] 19:14:00 Test Item Value Reference Range Interpretation Comments Potassium Lvl (test code = Potassium 4.3 3.5-5.3 Lvl) [facility] [id number] 19:14:00 Test Item Value Reference Range Interpretation Comments Chloride Lvl (test code = Chloride Lvl) 94 98-110 [facility] [id number] 19:14:00 Test Item Value Reference Range Interpretation Comments CO2 (test code = CO2) 24 20-32 [facility] [id number] 19:14:00 Test Item Value Reference Range Interpretation Comments Calcium Lvl (test code = Calcium Lvl) 9.5 8.6-10.3 [place] 163802-07-22 19:14:00 Test Item Value Reference Range Interpretation Comments Total Protein (test code = Total 6.2 6.1-8.1 Protein) [place] 163802-07-22 19:14:00 Test Item Value Reference Range Interpretation Comments Albumin Lvl (test code = Albumin Lvl) 3.6 3.6-5.1 [place] 163802-07-22 19:14:00 Test Item Value Reference Range Interpretation Comments Globulin (test code = Globulin) 2.6 1.9-3.7 [place] 163802-07-22 19:14:00 Test Item Value Reference Range Interpretation Comments A/G Ratio (test code = A/G Ratio) 1.4 1.0-2.5 [place] 163802-07-22 19:14:00 Test Item Value Reference Range Interpretation Comments Bili Total (test code = Bili Total) 0.7 0.2-1.2 [place] 163802-07-22 19:14:00 Test Item Value Reference Range Interpretation Comments Alk Phos (test code = Alk Phos) 99 35-144 [place] 163802-07-22 19:14:00 Test Item Value Reference Range Interpretation Comments ASPARTATE TRANSAMINASE (test code = 71 10-35 ASPARTATE TRANSAMINASE) [place] 163802-07-22 19:14:00 Test Item Value Reference Range Interpretation Comments ALANINE AMINOTRANSFERASE (test code = 88 9-46 ALANINE AMINOTRANSFERASE) [place] 589622-07-22 19:14:00 Test Item Value Reference Range Interpretation Comments WBC X 10x3 (test code = WBC X 10x3) 9.5 3.8-10.8 [place] 589622-07-22 19:14:00 Test Item Value Reference Range Interpretation Comments RBC X 10x6 (test code = RBC X 10x6) 4.81 4.20-5.80 [place] 589622-07-22 19:14:00 Test Item Value Reference Range Interpretation Comments Hgb (test code = Hgb) 13.9 13.2-17.1 [place] 589622-07-22 19:14:00 Test Item Value Reference Range Interpretation Comments Hct (test code = Hct) 40.8 38.5-50.[address]07-22 19:14:00 Test Item Value Reference Range Interpretation Comments MCV (test code = MCV) 84.8 80.0-100.0 [facility]enXzmvzwcKPLLODXAKV1454-61-46 19:14:00 Test Item Value Reference Range Interpretation Comments MCH (test code = MCH) 28.9 pg 27.0-33.0 [facility]enTqhbgblDUSXBEUFOA3643-50-67 19:14:00 Test Item Value Reference Range Interpretation Comments MCHC (test code = MCHC) 34.1 32.0-36.0 [facility]enOqjvvkkLBGKXHZZNL9513-59-29 19:14:00 Test Item Value Reference Range Interpretation Comments RDW (test code = RDW) 15.6 11.0-15.0 [facility]enFgtfpsoBECDVSETCT5656-93-22 19:14:00 Test Item Value Reference Range Interpretation Comments Platelet (test code = Platelet) 265 140-400 [facility] HarlingenBexonspVRYVHNPODL1703-09-10 19:14:00 Test Item Value Reference Range Interpretation Comments MPV (test code = MPV) 9.9 7.5-12.5 [facility]enDxituqkPOTKOMDUUU2636-10-31 19:14:00 Test Item Value Reference Range Interpretation Comments Neutrophils # (test code = Neutrophils 6907 4324-3149 #) [facility]enQndadynLWXZZKJQOB5073-91-52 19:14:00 Test Item Value Reference Range Interpretation Comments Lymphocytes # (test code = Lymphocytes [phone] #) [facility]enHkblwlyKHUYPYGJVX0524-12-56 19:14:00 Test Item Value Reference Range Interpretation Comments Monocytes # (test code = Monocytes #) 950 200-950 [facility]lingenZcnhkvxIVWAMDKRZS4789-74-93 19:14:00 Test Item Value Reference Range Interpretation Comments Eosinophils # (test code = Eosinophils 29 15-500 #) [facility]enGqkajbiRULRRROSAQ7977-64-01 19:14:00 Test Item Value Reference Range Interpretation Comments Basophils # (test code 29 See_Comment [Aut omated message] The = Basophils #) system which generated this result tra nsmitted reference range : <=200. The reference r tomasa was not used to int erpret this result as normal/abnormal . [facility]lingenDuplurvQJKLZRJJSZ0988-77-98 19:14:00 Test Item Value Reference Range Interpretation Comments Segs (test code = Segs) 72.7 [place] [id number] 19:14:00 Test Item Value Reference Range Interpretation Comments Lymphocytes (test code = Lymphocytes) 16.7 [facility]ass[facility]MD[facility]HKBSID5012-82-67 19:14:00 Test Item Value Reference Range Interpretation Comments Monocytes (test code = Monocytes) 10.0 [facility] [id number] 19:14:00 Test Item Value Reference Range Interpretation Comments Eosinophils (test code = Eosinophils) 0.3 [facility] HospitalMermgyzVUQZANDMQX4660-43-65 19:14:00 Test Item Value Reference Range Interpretation Comments Basophils (test code = Basophils) 0.3 [facility] HospitalDovbeqhRPXWWLVDUC4316-09-07 19:14:00 Test Item Value Reference Range Interpretation Comments Diff Comment (test code = Diff SEE COMMENT Comment) [facility] [id number] 14:48:00Unlisted Reason for Exam - Click Yes and Enter Reason Below->YesUnlisted Reason for Exam->HRCTscan of the chest WO contrast. LT study, [id number]. [facility] 1945 Sex: MFINAL REPORT EXAM: CT Chest WITHOUT contrastINDICATION: Shortness of breathHRCT scan of the chest WO contrast. LT study, [id number]. COMPARISON: None TECHNIQUE:Chest was scanned utilizing a multidetector helical scanner from the lung apex through the level of the adrenal glands without administration of IV contrast. Absence of intravenous contrast decreases sensitivity for detection of lymphadenopathy and vascular pathology. Inspiration and expiration supine, and prone imaging wasperformed with axial, sagittal and coronal reconstructions. Research [...] with the ascending aorta measuring 4.4 cm andproximal descending aorta measuring 3.5 cm. The main pulmonary artery is mildly dilated measuring 3.2 cm. There is extensive triple- vessel coronary calcification. UPPER ABDOMEN: There is suboptimal [...] The thoracic aorta is ectatic measuring 4.4 cmascending, and 3.5 cm proximal descending. There is [...] thin slice beam hardening artifact. Signed: Karine Milnereport Verified Date/Time: 09/06/2020 14:48:56 Reading Location: [facility] Reading Room [address] [place] [address] POCT- GLUCOSE [id number] 14:56:00 Test Item Value Reference Range Interpretation Comments POC-GLUCOSE METER 108 mg/dL 70-110 : TESTED A T [facility] 6720 (BEAKER) (test code = [facility], 1538) 81649: Distribution Center Manager/Techni lavinia ID = [id number] for PAULIE CONNOR POCT-GLUCOSE [id number] 14:07:00 Test Item Value Reference Range Interpretation Comments POC-GLUCOSE METER 119 mg/dL 70-110 H : TESTED A T [facility] 6720 (BEAKER) (test code = [facility], 1538) 26473: Distribution Center Manager/Techni lavinia ID = [id number] for PAULIE CONNOR BASIC METABOLIC [id number] 12:51:00 Test Item Value Reference Range Interpretation [...] 697) EGFR (BEAKER) (test 52 mL/min/1.73 ESTIMA DEBBIE GFR IS code = 1092) sq m NOT ACCURATE CREATININE CLEARANCE IN PREDICTING GLOMERULAR FILTRATION RATE . ESTIMATED GFR I S NOT APPLICABLE FOR DIALYSIS PATIEN TS. Distribution Center Manager ID - EDASICBC W/PLT COUNT & AUTO [id number] 12:33:00 Test Item Value Reference Range Interpretation [...] PERCENT (BEAKER) (test code = 2801) SARS-COV2/RT-PCR ([facility])2019-10-05 23:09:00 Test Item Value Reference Range Interpretation Comments SARS-COV2/RT-PCR (test code = Negative Not Detected, Negative [id number]) SARS-COV-2 PERFORMING LAB CPL (test code = 8343001) POCT-GLUCOSE [id number] 09:16:00 Test Item Value Reference Range Interpretation Comments POC-GLUCOSE METER 94 mg/dL 70-110 : TESTED A T [facility] 6720 (BEAKER) (test code = [facility] [place], 1538) 36399: Distribution Center Manager/Techni lavinia ID = [id number] for YONNY KOVACS BUTCH BASIC METABOLIC [id number] 05:39:00 Test Item Value Reference Range Interpretation [...] S NOT APPLICABLE FOR DIALYSIS PATIEN TS. Distribution Center Manager ID - PIAYA LCBC W/PLT COUNT & AUTO [id number] 04:18:00 Test Item Value Reference Range Interpretation [...] PERCENT (BEAKER) (test code = 2801) POCT-GLUCOSE [id number] 21:48:00 Test Item Value Reference Range Interpretation Comments POC-GLUCOSE METER 114 mg/dL 70-110 H : TESTED A T [facility] 6720 (BEAKER) ([facility] = [facility], 1538) 66797: Distribution Center Manager/Techni lavinia ID = [id number] for MARIA D MONREAL POCT-GLUCOSE [id number] 17:44:00 Test Item Value Reference Range Interpretation Comments POC-GLUCOSE METER 112 mg/dL 70-110 H : TESTED A T [facility] 6720 (BEAKER) (test code [facility], = 1538) 38590: Distribution Center Manager/Techni lavinia ID = [id number] for GARALND VELA MARA (Cont ract) [id number] 13:20:00 Test Item Value Reference Range Interpretation Comments FERRITIN (BEAKER) (test code = 354.57 ng/mL 5.00-275.00 H 361) Distribution Center Manager ID - NTPPOCT-GLUCOSE [id number] 12:02:00 Test Item Value Reference Range Interpretation Comments POC-GLUCOSE METER 136 mg/dL 70-110 H : TESTED A T [facility] 6720 (BEAKER) (test code [facility], = 1538) 31531: Distribution Center Manager/Techni lavinia ID = [id number] for HEATHER VELA MAANDRA (Cont ract) POCT-GLUCOSE [id number] 09:59:00 Test Item Value Reference Range Interpretation Comments POC-GLUCOSE METER 152 mg/dL 70-110 H : Notified RN/MD: TESTED (BEAKER) (test code AT [facility] 67[address] [facility] = 1538) [facility], 770 30: Distribution Center Manager/Techni lavinia ID = [id number] for HEATHER VELA MAANDRA (Cont ract) POCT-GLUCOSE [id number] 09:49:00 Test Item Value Reference Range Interpretation Comments POC-GLUCOSE METER 142 mg/dL 70-110 H : TESTED A T [facility] 6720 (BEAKER) (test [facility] = [facility], 1538) 66577: Distribution Center Manager/Techni lavinia ID = [id number] for MARIA D MONREAL POCT-GLUCOSE [id number] 09:42:00 Test Item Value Reference Range Interpretation Comments POC-GLUCOSE METER 147 mg/dL 70-110 H : TESTED A T [facility] 6720 (BEAKER) (test code = [facility], 1538) 39877: Distribution Center Manager/Techni lavinia ID = [id number] for QU FELIPE, LAW POCT-GLUCOSE [id number] 09:34:00 Test Item Value Reference Range Interpretation Comments POC-GLUCOSE METER 133 mg/dL 70-110 H : TESTED A T [facility] 6720 (BEAKER) (test code = [facility], 1538) 98214: Distribution Center Manager/Techni lavinia ID = [id number] for QU FELPIE, LAW POCT-GLUCOSE [id number] 09:33:00 Test Item Value Reference Range Interpretation Comments POC-GLUCOSE METER 106 mg/dL 70-110 : TESTED A T [facility] 6720 (BEAKER) (test code = [facility], 1538) 30659: Distribution Center Manager/Techni lavinia ID = [id number] for QU FELIPE, LAW [id number] 05:47:00 Test Item Value Reference Range Interpretation Comments PHOSPHORUS (BEAKER) (test code = 4.1 mg/dL 2.3-4.7 604) Distribution Center Manager ID - BRI [id number] 05:47:00 Test Item Value Reference Range Interpretation Comments MAGNESIUM (BEAKER) (test code = 2.0 mg/dL 1.6-2.6 627) Distribution Center Manager ID - BRI MCOMPREHENSIVE METABOLIC [id number] 05:47:00 Test Item Value Reference Range Interpretation [...] 347) EGFR (BEAKER) (test 92 mL/min/1.73 ESTIMA DEBBIE GFR IS code = 1092) sq m NOT ACCURATE CREATININE CLEARANCE IN PREDICTING GLOMERULAR FILTRATION RATE . ESTIMATED GFR I S NOT APPLICABLE FOR DIALYSIS PATIEN TS. Distribution Center Manager ID - BRI [id number] 05:44:00 Test Item Value Reference Range Interpretation [...] thrombosis and/or pulmonary embolus.HIGH RISK: Target INR is 2.5-3.5 for patients wiht mechanical heart valves.CALCIUM, [id number] 05:18:00 Test Item Value Reference Range Interpretation Comments CALCIUM IONIZED (BEAKER) (test 1.14 mmol/L 1.12-1.27 code = 698) PH, BLOOD (BEAKER) (test code = 7.43 1810) CBC W/PLT COUNT & AUTO [id number] 05:17:00 Test Item Value Reference Range Interpretation [...] 0-1 PERCENT (BEAKER) (test code = 2801) [id number] 17:53:00 Test Item Value Reference Range Interpretation Comments MAGNESIUM (BEAKER) 2.1 mg/dL 1.6-2.6 Specimen slightly (test code = 627) hemolyzed Distribution Center Manager ID - NTPBASIC METABOLIC [id number] 17:53:00 Test Item Value Reference Range Interpretation [...] 697) EGFR (BEAKER) (test 89 mL/min/1.73 ESTIMA DEBBIE GFR IS code = 1092) sq m NOT ACCURATE CREATININE CLEARANCE IN PREDICTING GLOMERULAR FILTRATION RATE . ESTIMATED GFR I S NOT APPLICABLE FOR DIALYSIS PATIEN TS. Distribution Center Manager ID - [id number] 05:37:00 Test Item Value Reference Range Interpretation Comments PHOSPHORUS (BEAKER) (test code = 4.2 mg/dL 2.3-4.7 604) Distribution Center Manager ID - [id number] 05:37:00 Test Item Value Reference Range Interpretation Comments MAGNESIUM (BEAKER) (test code = 2.2 mg/dL 1.6-2.6 627) Distribution Center Manager ID - DBCOMPREHENSIVE METABOLIC [id number] 05:37:00 Test Item Value Reference Range Interpretation [...] 347) EGFR (BEAKER) (test 93 mL/min/1.73 ESTIMA DEBBIE GFR IS code = 1092) sq m NOT ACCURATE CREATININE CLEARANCE IN PREDICTING GLOMERULAR FILTRATION RATE . ESTIMATED GFR I S NOT APPLICABLE FOR DIALYSIS PATIEN TS. Distribution Center Manager ID - DBLACTATE DEHYDROGENASE (LDH)2019-10-03 05:37:00 Test Item Value Reference Range Interpretation Comments LACTATE DEHYDROGENASE (BEAKER) (test 346 U/L 125-220 H code = 635) Distribution Center Manager ID - DBPT/[id number] 05:36:00 Test Item Value Reference Range Interpretation [...] thrombosis and/or pulmonary embolus.HIGH RISK: Target INR is 2.5-3.5 for patients wiht mechanical heart valves.CALCIUM, [id number] 05:20:00 Test Item Value Reference Range Interpretation Comments CALCIUM IONIZED (BEAKER) (test 1.00 mmol/L 1.12-1.27 L code = 698) PH, BLOOD (BEAKER) (test code = 7.49 1810) CBC W/PLT COUNT & AUTO [id number] 05:11:00 Test Item Value Reference Range Interpretation [...] PERCENT (BEAKER) (test code = 2801) POCT-GLUCOSE [id number] 00:05:00 Test Item Value Reference Range Interpretation Comments POC-GLUCOSE METER 129 mg/dL 70-110 H : TESTED A T [facility] 6720 (BEAKER) (test code = [facility], 1538) 40435: Distribution Center Manager/Techni lavinia ID = [id number] for BI YO, HERIBERTO POCT-GLUCOSE [id number] 22:49:00 Test Item Value Reference Range Interpretation Comments POC-GLUCOSE METER 58 mg/dL 70-110 L : TESTED A T [facility] 6720 (BEAKER) (test code = [facility], 1538) 83015: Distribution Center Manager/Techni lavinia ID = [id number] for BIYO , HERIBERTO [id number] 16:58:00 Test Item Value Reference Range Interpretation Comments MAGNESIUM (BEAKER) 2.3 mg/dL 1.6-2.6 Specimen moderately (test code = 627) hemolyzed Distribution Center Manager ID - DBBASIC METABOLIC [id number] 16:58:00 Test Item Value Reference Range Interpretation [...] 697) EGFR (BEAKER) (test 80 mL/min/1.73 ESTIMA DEBBIE GFR IS code = 1092) sq m NOT ACCURATE CREATININE CLEARANCE IN PREDICTING GLOMERULAR FILTRATION RATE . ESTIMATED GFR I S NOT APPLICABLE FOR DIALYSIS PATIEN TS. Distribution Center Manager ID - [id number] 12:52:00 Test Item Value Reference Range Interpretation Comments FERRITIN (BEAKER) (test code = 392.65 ng/mL 5.00-275.00 H 361) Distribution Center Manager ID - HANSA [id number] 12:38:00 Test Item Value Reference Range Interpretation Comments PROCALCITONIN (BEAKER) (test code = < ng/mL <0.05 3036) SEPSIS RISK (ng/mL)Low: 0.05-0.50Intermediate: 0.51-2.00High: >=2.01C- REACTIVE [id number] 12:29:00 Test Item Value Reference Range Interpretation Comments C-REACTIVE PROTEIN (BEAKER) (test 0.46 mg/dL 0.00-0.50 code = 676) Distribution Center Manager ID - HANSA CPOCT-GLUCOSE [id number] 12:05:00 Test Item Value Reference Range Interpretation Comments POC-GLUCOSE METER 147 mg/dL 70-110 H : TESTED A T [facility] 6720 ([employer] (test code = [facility] [employer] [facility], 1538) 26823: Distribution Center Manager/Techni lavinia ID = [id number] for Donal Vides (contract) POCT-GLUCOSE [id number] 05:48:00 Test Item Value Reference Range Interpretation Comments POC-GLUCOSE METER 77 mg/dL 70-110 : TESTED A T [facility] 6720 ([employer] (test code = [facility] [employer] [facility], 1538) 01636: Distribution Center Manager/Techni lavinia ID = [id number] for Victoria Sharif PT/[id number] 04:16:00 Test Item Value Reference Range Interpretation [...] thrombosis and/or pulmonary embolus.HIGH RISK: Target INR is 2.5-3.5 for patients wiht mechanical heart valves.PROTHROMBIN [id number] 04:15:00 Test Item Value Reference Range Interpretation Comments PROTIME (BEAKER) (test code = 15.3 seconds 11.9-14.2 H 759) INR (BEAKER) (test code = 370) 1.2 <=5.9 Effective 10/21/2018: PT Reference Range ChangeNew: 11.9-14.2 Previous: 11.7- 14.7RECOMMENDED COUMADIN/WARFARIN INR THERAPY RANGESSTANDARD DOSE: 2.0-3.0 Includes: PROPHYLAXIS for venous thrombosis, systemic embolization; TREATMENT for venous thrombosis and/or pulmonary embolus.HIGH RISK: Target INR is 2.5-3.5 for patients wiht mechanical heart valves.COMPREHENSIVE METABOLIC [...] 347) EGFR (BEAKER) (test 68 mL/min/1.73 ESTIMA DEBBIE GFR IS code = 1092) sq m NOT ACCURATE CREATININE CLEARANCE IN PREDICTING GLOMERULAR FILTRATION RATE . ESTIMATED GFR I S NOT APPLICABLE FOR DIALYSIS PATIEN TS. Distribution Center Manager ID - [id number] 04:06:00 Test Item Value Reference Range Interpretation Comments PHOSPHORUS (BEAKER) (test code = 4.5 mg/dL 2.3-4.7 604) Distribution Center Manager ID - [id number] 04:06:00 Test Item Value Reference Range Interpretation Comments MAGNESIUM (BEAKER) (test code = 2.0 mg/dL 1.6-2.6 627) Distribution Center Manager ID - LACBC W/PLT COUNT & AUTO [id number] 03:57:00 Test Item Value Reference Range Interpretation [...] PERCENT (BEAKER) (test code = 2801) CALCIUM, [id number] 03:41:00 Test Item Value Reference Range Interpretation Comments CALCIUM IONIZED (BEAKER) (test 0.97 mmol/L 1.12-1.27 L code = 698) PH, BLOOD (BEAKER) (test code = 7.40 1810) POCT-GLUCOSE [id number] 01:05:00 Test Item Value Reference Range Interpretation Comments POC-GLUCOSE METER 89 mg/dL 70-110 : TESTED A T [facility] 6720 (BEAKER) (test code = [facility] [place], 1538) 12377: Distribution Center Manager/Techni lavinia ID = [id number] for Li Victoria POCT-GLUCOSE [id number] 00:13:00 Test Item Value Reference Range Interpretation Comments POC-GLUCOSE METER 67 mg/dL 70-110 L : TESTED A T [facility] 6720 (BEAKER) (test code = [facility], 153) 47389: Distribution Center Manager/Techni lavinia ID = [id number] for Li, Victoria POCT-GLUCOSE [id number] 20:46:00 Test Item Value Reference Range Interpretation Comments POC-GLUCOSE METER 100 mg/dL 70-110 : TESTED A T [facility] 6720 (BEAKER) (test code = [facility], 1538) 15439: Distribution Center Manager/Techni lavinia ID = [id number] for Li , Victoria [id number] 17:20:00 Test Item Value Reference Range Interpretation Comments MAGNESIUM (BEAKER) (test code = 2.3 mg/dL 1.6-2.6 627) Distribution Center Manager ID - BSBASIC METABOLIC [id number] 17:20:00 Test Item Value Reference Range Interpretation [...] 697) EGFR (BEAKER) (test 66 mL/min/1.73 ESTIMA DEBBIE GFR IS code = 1092) sq m NOT ACCURATE CREATININE CLEARANCE IN PREDICTING GLOMERULAR FILTRATION RATE . ESTIMATED GFR I S NOT APPLICABLE FOR DIALYSIS PATIEN TS. Distribution Center Manager ID - BSPOCT-GLUCOSE [id number] 16:48:00 Test Item Value Reference Range Interpretation Comments POC-GLUCOSE METER 96 mg/dL 70-110 : TESTED A T [facility] 6720 (BEAKER) (test code = [facility], 1538) 43485: Distribution Center Manager/Techni lavinia ID = [id number] for NAHEED WIN (contra ct) POCT-GLUCOSE [id number] 11:37:00 Test Item Value Reference Range Interpretation Comments POC-GLUCOSE METER 190 mg/dL 70-110 H : TESTED A T [facility] 6720 (BEAKER) (test code = [facility], 1538) 46405: Distribution Center Manager/Techni lavinia ID = [id number] for NAHEED SHANKS (contra ct) POCT-GLUCOSE [id number] 06:05:00 Test Item Value Reference Range Interpretation Comments POC-GLUCOSE METER 167 mg/dL 70-110 H : TESTED A T [facility] 6720 (BEAKER) (test code = [facility], 1538) 42335: Distribution Center Manager/Techni lavinia ID = [id number] for JUSTICE BYNUM [id number] 04:37:00 Test Item Value Reference Range Interpretation Comments PHOSPHORUS (BEAKER) (test code = 4.6 mg/dL 2.3-4.7 604) Distribution Center Manager ID - NADIA [id number] 04:37:00 Test Item Value Reference Range Interpretation Comments MAGNESIUM (BEAKER) (test code = 2.2 mg/dL 1.6-2.6 627) Distribution Center Manager ID - NADIA WCOMPREHENSIVE METABOLIC [id number] 04:37:00 Test Item Value Reference Range Interpretation [...] 347) EGFR (BEAKER) (test 93 mL/min/1.73 ESTIMA DEBBIE GFR IS code = 1092) sq m NOT ACCURATE CREATININE CLEARANCE IN PREDICTING GLOMERULAR FILTRATION RATE . ESTIMATED GFR I S NOT APPLICABLE FOR DIALYSIS PATIEN TS. Distribution Center Manager ID Osmani ZUNIGA WLACTATE DEHYDROGENASE (LDH)2019-10-01 04:37:00 Test Item Value Reference Range Interpretation Comments LACTATE DEHYDROGENASE (BEAKER) (test 673 U/L 125-220 H code = 635) Distribution Center Manager ID - NADIA [id number] 04:24:00 Test Item Value Reference Range Interpretation Comments PARTIAL THROMBOPLASTIN TIME 61.9 seconds 22.5-36.0 H (BEAKER) (test code = 760) 6 hours after starting heparin infusion and as indicated per sliding scaleCBC W/PLT COUNT & AUTO [id number] 04:08:00 Test Item Value Reference Range Interpretation [...] (BEAKER) (test code = 2801) BLOOD GAS, [id number] 04:05:00 Test Item Value Reference Range Interpretation [...] (test code = 1819) 60.0 % CALCIUM, [id number] 04:05:00 Test Item Value Reference Range Interpretation Comments CALCIUM IONIZED (BEAKER) (test 1.14 mmol/L 1.12-1.27 code = 698) PH, BLOOD (BEAKER) (test code = 7.45 1810) [id number] 00:28:00 Test Item Value Reference Range Interpretation Comments POTASSIUM (BEAKER) (test code = 3.8 meq/L 3.5-5.1 379) Distribution Center Manager ID - PIAYA LPOCT-GLUCOSE [id number] 00:15:00 Test Item Value Reference Range Interpretation Comments POC-GLUCOSE METER 126 mg/dL 70-110 H : TESTED A T [facility] 6720 (BEAKER) (test code = [facility] [place], 1538) 75510: Distribution Center Manager/Techni lavinia ID = [id number] for [place] ASHA, JUSTICE BLOOD GAS, [id number] 21:09:00 Test Item Value Reference Range Interpretation [...] (BEAKER) (test code = 1819) 60.0 % [id number] 21:05:00 Test Item Value Reference Range Interpretation Comments MAGNESIUM (BEAKER) (test code = 2.3 mg/dL 1.6-2.6 627) Distribution Center Manager ID - DBBASIC METABOLIC [id number] 21:05:00 Test Item Value Reference Range Interpretation [...] 697) EGFR (BEAKER) (test 94 mL/min/1.73 ESTIMA DEBBIE GFR IS code = 1092) sq m NOT ACCURATE CREATININE CLEARANCE IN PREDICTING GLOMERULAR FILTRATION RATE . ESTIMATED GFR I S NOT APPLICABLE FOR DIALYSIS PATIEN TS. Distribution Center Manager ID - DBPOCT-GLUCOSE [id number] 18:20:00 Test Item Value Reference Range Interpretation Comments POC-GLUCOSE METER 171 mg/dL 70-110 H : TESTED A T [facility] 6720 (BEAKER) (test code = [facility] [place], 1538) 11389: Distribution Center Manager/Techni lavinia ID = [id number] for LEANN NAHEED BARRIENTOS (contra ct) BASIC METABOLIC [id number] 16:52:00 Test Item Value Reference Range Interpretation [...] 697) EGFR (BEAKER) (test 94 mL/min/1.73 ESTIMA DEBBIE GFR IS code = 1092) sq m NOT ACCURATE CREATININE CLEARANCE IN PREDICTING GLOMERULAR FILTRATION RATE . ESTIMATED GFR I S NOT APPLICABLE FOR DIALYSIS PATIEN TS. Distribution Center Manager ID - DBBLOOD GAS, [id number] 16:30:00 Test Item Value Reference Range Interpretation [...] (test code = 1819) 50.0 % CALCIUM, [id number] 16:30:00 Test Item Value Reference Range Interpretation Comments CALCIUM IONIZED (BEAKER) (test 1.11 mmol/L 1.12-1.27 L code = 698) PH, BLOOD (BEAKER) (test code = 7.48 1810) POCT-GLUCOSE [id number] 13:29:00 Test Item Value Reference Range Interpretation Comments POC-GLUCOSE METER 174 mg/dL 70-110 H : TESTED A T [facility] 6720 (BEAKER) (test code = [facility], 1538) 38012: Distribution Center Manager/Techni lavinia ID = [id number] for CINDA HIGGINS JOI BLOOD GAS, [id number] 12:08:00 Test Item Value Reference Range Interpretation [...] (BEAKER) (test code = 1819) 50.0 % [id number] 11:04:00 Test Item Value Reference Range Interpretation Comments FERRITIN (BEAKER) (test code = 444.49 ng/mL 5.00-275.00 H 361) Distribution Center Manager ID - HANSA [id number] 09:57:00 Test Item Value Reference Range Interpretation Comments PHOSPHORUS (BEAKER) (test code = 4.1 mg/dL 2.3-4.7 604) Distribution Center Manager ID - BRI [id number] 09:57:00 Test Item Value Reference Range Interpretation Comments MAGNESIUM (BEAKER) (test code = 2.2 mg/dL 1.6-2.6 627) Distribution Center Manager ID - BRI MBASIC METABOLIC [id number] 09:57:00 Test Item Value Reference Range Interpretation [...] 697) EGFR (BEAKER) (test 86 mL/min/1.73 ESTIMA DEBBIE GFR IS code = 1092) sq m NOT ACCURATE CREATININE CLEARANCE IN PREDICTING GLOMERULAR FILTRATION RATE . ESTIMATED GFR I S NOT APPLICABLE FOR DIALYSIS PATIEN TS. Distribution Center Manager ID - BRI [id number] 09:49:00 Test Item Value Reference Range Interpretation [...] exclusion of thrombosis is within 95-100% range. [id number] 09:48:00 Test Item Value Reference Range Interpretation [...] thrombosis and/or pulmonary embolus.HIGH RISK: Target INR is 2.5-3.5 for patients wiht mechanical heart valves.SARS-COV2/RT-PCR ([facility]) 2019-09-30 06:25:00 Test Item Value Reference Range Interpretation Comments SARS-COV2/RT-PCR (test code = Positive Not Detected, Negative A A [id number]) SARS-COV-2 PERFORMING LAB CPL (test code = 5101382) [id number] 05:34:00 Test Item Value Reference Range Interpretation [...] thrombosis and/or pulmonary embolus.HIGH RISK: Target INR is 2.5-3.5 for patients wiht mechanical heart valves.POCT-GLUCOSE [id number] 05:26:00 Test Item Value Reference Range Interpretation Comments POC-GLUCOSE METER 184 mg/dL 70-110 H : TESTED Levi Galvez [facility] 67[facility] (BEAKER) (test code = [facility] [place], 1538) 93573: Distribution Center Manager/Techni lavinia ID = [id number] for AT [place] ONTIVEROS [id number] 04:14:00 Test Item Value Reference Range Interpretation Comments PARTIAL THROMBOPLASTIN TIME 73.7 seconds 22.5-36.0 H (BEAKER) (test code = 760) 6 hours after starting heparin infusion and as indicated per sliding scale CALCIUM, [id number] 04:13:00 Test Item Value Reference Range Interpretation Comments CALCIUM IONIZED (BEAKER) (test 1.09 mmol/L 1.12-1.27 L code = 698) PH, BLOOD (BEAKER) (test code = 7.44 1810) BLOOD GAS, [id number] 04:13:00 Test Item Value Reference Range Interpretation [...] (BEAKER) (test code = 1819) 35.0 % [id number] 03:54:00 Test Item Value Reference Range Interpretation Comments PHOSPHORUS (BEAKER) (test code = 4.3 mg/dL 2.3-4.7 604) Distribution Center Manager ID - BRI [id number] 03:54:00 Test Item Value Reference Range Interpretation Comments MAGNESIUM (BEAKER) (test code = 2.1 mg/dL 1.6-2.6 627) Distribution Center Manager ID - BRI MCOMPREHENSIVE METABOLIC [id number] 03:54:00 Test Item Value Reference Range Interpretation [...] 347) EGFR (BEAKER) (test 88 mL/min/1.73 ESTIMA DEBBIE GFR IS code = 1092) sq m NOT ACCURATE CREATININE CLEARANCE IN PREDICTING GLOMERULAR FILTRATION RATE . ESTIMATED GFR I S NOT APPLICABLE FOR DIALYSIS PATIEN TS. Distribution Center Manager ID - BRI MCBC W/PLT COUNT & AUTO [id number] 03:35:00 Test Item Value Reference Range Interpretation [...] H PERCENT (BEAKER) (test code = 2801) [id number] 00:07:00 Test Item Value Reference Range Interpretation [...] thrombosis and/or pulmonary embolus.HIGH RISK: Target INR is 2.5-3.5 for patients wiht mechanical heart valves.[id number] 23:55:00 Test Item Value Reference Range Interpretation Comments POTASSIUM (BEAKER) (test code = 3.3 meq/L 3.5-5.1 L 379) Distribution Center Manager ID - BSPOCT-GLUCOSE [id number] 23:47:00 Test Item Value Reference Range Interpretation Comments POC-GLUCOSE METER 191 mg/dL 70-110 H : TESTED A T [facility] 6720 (BEAKER) (test code = KVNG Wolfe [facility], 1538) 13313: Distribution Center Manager/Techni lavinia ID = [id number] for Li , Victoria BLOOD GAS, [id number] 21:53:00 Test Item Value Reference Range Interpretation [...] (test code = 1819) 35.0 % TROPONIN [id number] 17:55:00 Test Item Value Reference Range Interpretation [...] failure, acidosis, acute neurological disease, and persistent tachyarrhythmia.Distribution Center Manager ID - BSBASIC METABOLIC PANEL 2019-09-29 17:47:00 [...] 697) EGFR (BEAKER) (test 92 mL/min/1.73 ESTIMA DEBBIE GFR IS code = 1092) sq m NOT ACCURATE CREATININE CLEARANCE IN PREDICTING GLOMERULAR FILTRATION RATE . ESTIMATED GFR I S NOT APPLICABLE FOR DIALYSIS PATIEN TS. Distribution Center Manager ID - BSPT/[id number] 17:41:00 Test Item Value Reference Range Interpretation [...] thrombosis and/or pulmonary embolus.HIGH RISK: Target INR is 2.5-3.5 for patients wiht mechanical heart valves.POCT-GLUCOSE [id number] 17:27:00 Test Item Value Reference Range Interpretation Comments POC-GLUCOSE METER 226 mg/dL 70-110 H : TESTED A T [facility] 6720 (BEAKER) (test code = KVNG [place], 1538) 7[address]: Distribution Center Manager/Techni lavinia ID = [id number] for MIRNA ORTIZ BLOOD [id number] 15:00:00 Test Item Value Reference Range Interpretation Comments CULTURE (BEAKER) (test No growth in 5 days code = 1095) BLOOD [id number] 15:00:00 Test Item Value Reference Range Interpretation Comments CULTURE (BEAKER) (test No growth in 5 days code = 1095) RAD, CHEST, 1 VIEW, NON [id number] 13:42:00Reason for exam:- >COVACTAShould this be performed at the bedside?->YesFINAL REPORT RAD, CHEST, 1 VIEW, NON DEPT INDICATION: COVACTA COMPARISON: Prior day's exam FINDINGS: Portable frontal view of the chest. IMPRESSION: Support Lines: Stable. Lungs and pleura: Unchanged airspace and pleural opacities. No pneumothorax.Heart and mediastinum: Stable contours. Stable surgical changes.Additional findings: None. Signed: Joi Pinedaort Verified Da te/Time: 09/29/2019 13:42:34 Reading Location: [facility] Radiology Reading Room [id number] 13:41:00 Test Item Value Reference Range Interpretation Comments FERRITIN (BEAKER) (test code = 480.68 ng/mL 5.00-275.00 H 361) Distribution Center Manager ID - HANSA CURIC [id number] 13:29:00 Test Item Value Reference Range Interpretation Comments URIC ACID (BEAKER) (test code = 2.7 mg/dL 2.6-7.2 773) Distribution Center Manager ID - HANSA [id number] 12:08:00 Test Item Value Reference Range Interpretation [...] exclusion of thrombosis is within 95-100% range. [id number] 11:59:00 Test Item Value Reference Range Interpretation [...] thrombosis and/or pulmonary embolus.HIGH RISK: Target INR is 2.5-3.5 for patients wiht mechanical heart valves.POCT-GLUCOSE [id number] 11:47:00 Test Item Value Reference Range Interpretation Comments POC-GLUCOSE METER 188 mg/dL 70-110 H : TESTED A T [facility] 6720 (BEAKER) (test code = KVNG Wolfe [facility], 1538) 51184: Distribution Center Manager/Techni lavinia ID = [id number] for CO RTEZ, FIORELLA BASIC METABOLIC [id number] 09:27:00 Test Item Value Reference Range Interpretation [...] 697) EGFR (BEAKER) (test 97 mL/min/1.73 ESTIMA DEBBIE GFR IS code = 1092) sq m NOT ACCURATE CREATININE CLEARANCE IN PREDICTING GLOMERULAR FILTRATION RATE . ESTIMATED GFR I S NOT APPLICABLE FOR DIALYSIS PATIEN TS. Distribution Center Manager ID - HANSA [id number] 05:49:00 Test Item Value Reference Range Interpretation Comments PARTIAL THROMBOPLASTIN TIME 45.7 seconds 22.5-36.0 H (BEAKER) (test code = 760) 6 hours after starting heparin infusion and as indicated per sliding scale COMPREHENSIVE METABOLIC [id number] 05:29:00 Test Item Value Reference Range Interpretation [...] 347) EGFR (BEAKER) (test 93 mL/min/1.73 ESTIMA DEBBIE GFR IS code = 1092) sq m NOT ACCURATE CREATININE CLEARANCE IN PREDICTING GLOMERULAR FILTRATION RATE . ESTIMATED GFR I S NOT APPLICABLE FOR DIALYSIS PATIEN TS. Distribution Center Manager ID - BRI [id number] 05:28:00 Test Item Value Reference Range Interpretation Comments PHOSPHORUS (BEAKER) (test code = 4.0 mg/dL 2.3-4.7 604) Distribution Center Manager ID - BRI [id number] 05:28:00 Test Item Value Reference Range Interpretation Comments MAGNESIUM (BEAKER) (test code = 2.1 mg/dL 1.6-2.6 627) Distribution Center Manager ID - BRI MLACTATE DEHYDROGENASE (LDH)2019-09-29 05:28:00 Test Item Value Reference Range Interpretation Comments LACTATE DEHYDROGENASE (BEAKER) (test 293 U/L 125-220 H code = 635) Distribution Center Manager ID - BRI MCBC W/PLT COUNT & AUTO [id number] 05:08:00 Test Item Value Reference Range Interpretation [...] PERCENT (BEAKER) (test code = 2801) CALCIUM, [id number] 05:07:00 Test Item Value Reference Range Interpretation Comments CALCIUM IONIZED (BEAKER) (test 1.13 mmol/L 1.12-1.27 code = 698) PH, BLOOD (BEAKER) (test code = 7.43 1810) BLOOD GAS, [id number] 05:06:00 Test Item Value Reference Range Interpretation [...] (test code = 1819) 35.0 % POCT-GLUCOSE [id number] 04:54:00 Test Item Value Reference Range Interpretation Comments POC-GLUCOSE METER 195 mg/dL 70-110 H : TESTED A T [facility] 6720 (BEAKER) (test code = [facility], 1538) 23377: Distribution Center Manager/Techni lavinia ID = [id number] for NAYELY SCHAFFER POCT-GLUCOSE [id number] 00:04:00 Test Item Value Reference Range Interpretation Comments POC-GLUCOSE METER 179 mg/dL 70-110 H : TESTED A T [facility] 6720 (BEAKER) (test code = [facility], 1538) 86950: Distribution Center Manager/Techni lavinia ID = [id number] for BOBBI GUARDADO POCT-GLUCOSE [id number] 18:12:00 Test Item Value Reference Range Interpretation Comments POC-GLUCOSE METER 163 mg/dL 70-110 H : TESTED A T [facility] 6720 (BEAKER) (test code = [facility], 1538) 19557: Distribution Center Manager/Techni lavinia ID = [id number] for VAN BANGURA BASIC METABOLIC [id number] 18:12:00 Test Item Value Reference Range Interpretation [...] 697) EGFR (BEAKER) (test 93 mL/min/1.73 ESTIMA DEBBIE GFR IS code = 1092) sq m NOT ACCURATE CREATININE CLEARANCE IN PREDICTING GLOMERULAR FILTRATION RATE . ESTIMATED GFR I S NOT APPLICABLE FOR DIALYSIS PATIEN TS. Distribution Center Manager ID - BSPT/[id number] 18:06:00 Test Item Value Reference Range Interpretation [...] thrombosis and/or pulmonary embolus.HIGH RISK: Target INR is 2.5-3.5 for patients wiht mechanical heart valves.POCT-GLUCOSE [id number] 11:57:00 Test Item Value Reference Range Interpretation Comments POC-GLUCOSE METER 206 mg/dL 70-110 H : [facility] (BEAKER) (test code = KVNG Wolfe [place], 1538) 635[address]: Distribution Center Manager/Techni lavinia ID = [id number] for JOI KELLY [id number] 11:40:00 Test Item Value Reference Range Interpretation Comments PROCALCITONIN (BEAKER) (test code = < ng/mL <0.05 3036) SEPSIS RISK (ng/mL)Low: 0.05-0.50Intermediate: 0.51-2.00High: >=2.01FERRITIN 2019-09-28 11:34:00 Test Item Value Reference Range Interpretation Comments FERRITIN (BEAKER) (test code = 501.97 ng/mL 5.00-275.00 H 361) Distribution Center Manager ID - NTPC-REACTIVE [id number] 11:11:00 Test Item Value Reference Range Interpretation Comments C-REACTIVE PROTEIN (BEAKER) (test 0.17 mg/dL 0.00-0.50 code = 676) Distribution Center Manager ID - [id number]-[id number] 11:05:00 Test Item Value Reference Range Interpretation [...] exclusion of thrombosis is within 95-100% range. [id number] 10:57:00 Test Item Value Reference Range Interpretation [...] thrombosis and/or pulmonary embolus.HIGH RISK: Target INR is 2.5-3.5 for patients wiht mechanical heart valves.[id number] 05:14:00 Test Item Value Reference Range Interpretation Comments PHOSPHORUS (BEAKER) (test code = 3.9 mg/dL 2.3-4.7 604) Distribution Center Manager ID - PIAYA [id number] 05:14:00 Test Item Value Reference Range Interpretation Comments MAGNESIUM (BEAKER) (test code = 2.1 mg/dL 1.6-2.6 627) Distribution Center Manager ID - PIAYA LCOMPREHENSIVE METABOLIC [id number] 05:14:00 Test Item Value Reference Range Interpretation [...] 347) EGFR (BEAKER) (test 91 mL/min/1.73 ESTIMA DEBBIE GFR IS code = 1092) sq m NOT ACCURATE CREATININE CLEARANCE IN PREDICTING GLOMERULAR FILTRATION RATE . ESTIMATED GFR I S NOT APPLICABLE FOR DIALYSIS PATIEN TS. Distribution Center Manager ID - PIAYA [id number] 04:59:00 Test Item Value Reference Range Interpretation Comments PARTIAL THROMBOPLASTIN TIME 33.2 seconds 22.5-36.0 (BEAKER) (test code = 760) 6 hours after starting heparin infusion and as indicated per sliding scaleBLOOD GAS, [id number] 04:45:00 Test Item Value Reference Range Interpretation [...] (test code = 1819) 35.0 % CALCIUM, [id number] 04:44:00 Test Item Value Reference Range Interpretation Comments CALCIUM IONIZED (BEAKER) (test 1.13 mmol/L 1.12-1.27 code = 698) PH, BLOOD (BEAKER) (test code = 7.46 1810) CBC W/PLT COUNT & AUTO [id number] 04:37:00 Test Item Value Reference Range Interpretation [...] 0-1 PERCENT (BEAKER) (test code = 2801) [id number] 23:14:00 Test Item Value Reference Range Interpretation [...] thrombosis and/or pulmonary embolus.HIGH RISK: Target INR is 2.5-3.5 for patients wiht mechanical heart valves.POCT-GLUCOSE [id number] 23:06:00 Test Item Value Reference Range Interpretation Comments POC-GLUCOSE METER 144 mg/dL 70-110 H : TESTED A T [facility] 6720 (BEAKER) (test code = [facility], 1538) 98397: Distribution Center Manager/Techni lavinia ID = [id number] for EZ EBUIKE, CATIA POCT-GLUCOSE [id number] 20:48:00 Test Item Value Reference Range Interpretation Comments POC-GLUCOSE METER 138 mg/dL 70-110 H : TESTED A T [facility] 6720 (BEAKER) (test code = [facility], 1538) 63731: Distribution Center Manager/Techni lavinia ID = [id number] for EZ EBUIKE, CATIA POCT-GLUCOSE [id number] 17:24:00 Test Item Value Reference Range Interpretation Comments POC-GLUCOSE METER 188 mg/dL 70-110 H : TESTED A T [facility] 6720 (BEAKER) (test code = KVNG Wolfe [facility], 1538) 74531: Distribution Center Manager/Techni lavinia ID = [id number] for XENIA CORDERO [id number] 17:01:00 Test Item Value Reference Range Interpretation [...] thrombosis and/or pulmonary embolus.HIGH RISK: Target INR is 2.5-3.5 for patients wiht mechanical heart valves.[id number] 16:56:00 Test Item Value Reference Range Interpretation Comments POTASSIUM (BEAKER) (test code = 4.1 meq/L 3.5-5.1 379) Distribution Center Manager ID - [id number] 13:12:00 Test Item Value Reference Range Interpretation Comments POTASSIUM (BEAKER) (test code = 3.4 meq/L 3.5-5.1 L 379) Distribution Center Manager ID - ERIN [id number] 13:12:00 Test Item Value Reference Range Interpretation Comments MAGNESIUM (BEAKER) (test code = 2.2 mg/dL 1.6-2.6 627) Distribution Center Manager ID - ERIN FPOCT-GLUCOSE [id number] 12:34:00 Test Item Value Reference Range Interpretation Comments POC-GLUCOSE METER 249 mg/dL 70-110 H : TESTED A T [facility] 6720 (BEAKER) (test code [facility], = 1538) 33364: Distribution Center Manager/Techni lavinia ID = [id number] for Kasia Hendricks CALCIUM, [id number] 05:00:00 Test Item Value Reference Range Interpretation Comments CALCIUM IONIZED (BEAKER) (test 1.08 mmol/L 1.12-1.27 L code = 698) PH, BLOOD (BEAKER) (test code = 7.50 1810) CBC W/PLT COUNT & AUTO [id number] 04:44:00 Test Item Value Reference Range Interpretation [...] H PERCENT (BEAKER) (test code = 2801) [id number] 04:40:00 Test Item Value Reference Range Interpretation Comments PHOSPHORUS (BEAKER) (test code = 3.8 mg/dL 2.3-4.7 604) Distribution Center Manager ID - PIAYA [id number] 04:40:00 Test Item Value Reference Range Interpretation Comments MAGNESIUM (BEAKER) (test code = 1.9 mg/dL 1.6-2.6 627) Distribution Center Manager ID - PIAYA LCOMPREHENSIVE METABOLIC [id number] 04:40:00 Test Item Value Reference Range Interpretation [...] 347) EGFR (BEAKER) (test 94 mL/min/1.73 ESTIMA DEBBIE GFR IS code = 1092) sq m NOT ACCURATE CREATININE CLEARANCE IN PREDICTING GLOMERULAR FILTRATION RATE . ESTIMATED GFR I S NOT APPLICABLE FOR DIALYSIS PATIEN TS. Distribution Center Manager ID - MARIZA LLACTATE DEHYDROGENASE (LDH)2019-09-27 04:40:00 Test Item Value Reference Range Interpretation Comments LACTATE DEHYDROGENASE (BEAKER) (test 341 U/L 125-220 H code = 635) Distribution Center Manager ID - MARIZA [id number] 04:30:00 Test Item Value Reference Range Interpretation Comments PARTIAL THROMBOPLASTIN TIME 25.8 seconds 22.5-36.0 (BEAKER) (test code = 760) 6 hours after starting heparin infusion and as indicated per sliding scaleBLOOD GAS, [id number] 04:13:00 Test Item Value Reference Range Interpretation [...] (test code = 1819) 40.0 % POCT-GLUCOSE [id number] 23:23:00 Test Item Value Reference Range Interpretation Comments POC-GLUCOSE METER 154 mg/dL 70-110 H : [facility] (BEAKER) (test code = KVNG [place], 1538) 838[address]: Distribution Center Manager/Techni lavinia ID = [id number] for Ram rris, Kim (Contra ct) POCT-GLUCOSE [id number] 17:49:00 Test Item Value Reference Range Interpretation Comments POC-GLUCOSE METER 173 mg/dL 70-110 H : TESTED A T [facility] 6720 (BEAKER) (test code [facility], = 1538) 47970: Distribution Center Manager/Techni lavinia ID = [id number] for GORDY VELA MA (Cont ract) [id number] 13:56:00 Test Item Value Reference Range Interpretation Comments POTASSIUM (BEAKER) (test code = 4.0 meq/L 3.5-5.1 379) Distribution Center Manager ID - TIMOTHY WPOCT-GLUCOSE [id number] 13:28:00 Test Item Value Reference Range Interpretation Comments POC-GLUCOSE METER 245 mg/dL 70-110 H : TESTED A T [facility] 6720 (BEAKER) (test code = KVNG Wolfe [facility], 1538) 90002: Distribution Center Manager/Techni lavinia ID = [id number] for SRINIVAS EASTON [id number] 11:17:00 Test Item Value Reference Range Interpretation Comments FERRITIN (BEAKER) (test code = 664.51 ng/mL 5.00-275.00 H 361) Distribution Center Manager ID Osmani AGUIRRE [id number] 11:06:00 Test Item Value Reference Range Interpretation Comments PROCALCITONIN (BEAKER) (test code 0.06 ng/mL <0.05 H = 3036) SEPSIS RISK (ng/mL)Low: 0.05-0.50Intermediate: 0.51-2.00High: >=2.01C- REACTIVE [id number] 10:52:00 Test Item Value Reference Range Interpretation Comments C-REACTIVE PROTEIN (BEAKER) (test 0.30 mg/dL 0.00-0.50 code = 676) Distribution Center Manager ID Osmani AGUIRRE [id number] 10:52:00 Test Item Value Reference Range Interpretation [...] exclusion of thrombosis is within 95-100% range. [id number] 10:48:00 Test Item Value Reference Range Interpretation [...] thrombosis and/or pulmonary embolus.HIGH RISK: Target INR is 2.5-3.5 for patients wiht mechanical heart valves.RAD, CHEST, 1 VIEW, NON [id number] 10:04:00Reason for exam:->pneumoniaShould this be performed at the bedside?->YesFINAL REPORT TECHNIQUE: Frontal view of the chest. INDICATION: 74-year-old man with pneumonia. COMPARISON: Chest radiograph 09/24/2019. FINDINGS:Suboptimal evaluation as the lower thorax was not included on the images. LINES/TUBES: Unchanged. LUNGS: No significant change in diffuse b ilateral airspace opacities. PLEURA: No significant change in suspected small bilateral pleural effusions, however the lower thorax is not included on the images. No pneumothorax. HEART AND MEDIASTINUM: The cardiomediastinal silhouette is not significantly changed. Atherosclerotic calcifications in the thoracic aorta. SOFT TISSUES AND BONES: Unremarkable. IMPRESSION:Suboptimal evaluation as the lowerthorax was not included on the images. No significant change since 09/24/2019. Signed: Yuri Mejia Verified Date/Time: 09/26/2019 10:04:20 Reading Location: [facility] B1 C013Y CT Body Reading Room SPUTUM CULTURE + GRAM [id number] 08:29:00 Test Item Value Reference Range Interpretation Comments CULTURE (BEAKER) 3+ Normal respiratory (test code = 1095) alyse present GRAM STAIN RESULT 4+ WBCs (BEAKER) (test code = 1123) GRAM STAIN RESULT 0-5 epithelial cells (BEAKER) (test code = 13852) GRAM STAIN RESULT 4+ gram positive cocci (BEAKER) (test code = 67382) POCT-GLUCOSE [id number] 05:33:00 Test Item Value Reference Range Interpretation Comments POC-GLUCOSE METER 221 mg/dL 70-110 H : TESTED A T [facility] 6720 (BEAKER) (test code = KVNG Yaneth [place], 1538) 52517: Distribution Center Manager/Techni lavinia ID = [id number] for ELMER BARTON [id number] 04:25:00 Test Item Value Reference Range Interpretation Comments PHOSPHORUS (BEAKER) (test code = 3.5 mg/dL 2.3-4.7 604) Distribution Center Manager ID - NADIA [id number] 04:25:00 Test Item Value Reference Range Interpretation Comments MAGNESIUM (BEAKER) (test code = 2.0 mg/dL 1.6-2.6 627) Distribution Center Manager ID - NADIA WCOMPREHENSIVE METABOLIC [id number] 04:25:00 Test Item Value Reference Range Interpretation [...] 347) EGFR (BEAKER) (test 94 mL/min/1.73 ESTIMA DEBBIE GFR IS code = 1092) sq m NOT ACCURATE CREATININE CLEARANCE IN PREDICTING GLOMERULAR FILTRATION RATE . ESTIMATED GFR I S NOT APPLICABLE FOR DIALYSIS PATIEN TS. Distribution Center Manager ID - NADIA WCBC W/PLT COUNT & AUTO [id number] 04:16:00 Test Item Value Reference Range Interpretation [...] H PERCENT (BEAKER) (test code = 2801) [id number] 04:11:00 Test Item Value Reference Range Interpretation Comments PARTIAL THROMBOPLASTIN TIME 81.1 seconds 22.5-36.0 H (BEAKER) (test code = 760) 6 hours after starting heparin infusion and as indicated per sliding scale CALCIUM, [id number] 04:06:00 Test Item Value Reference Range Interpretation Comments CALCIUM IONIZED (BEAKER) (test 1.06 mmol/L 1.12-1.27 L code = 698) PH, BLOOD (BEAKER) (test code = 7.51 1810) BLOOD GAS, [id number] 04:03:00 Test Item Value Reference Range Interpretation [...] (test code = 1819) 70.0 % POCT-GLUCOSE [id number] 00:53:00 Test Item Value Reference Range Interpretation Comments POC-GLUCOSE METER 201 mg/dL 70-110 H : TESTED A T [facility] 6720 (BEAKER) (test code [facility], = 1538) 78099: Distribution Center Manager/Techni lavinia ID = [id number] for JEWELL LITTLE VANCOMYCIN LEVEL, [id number] 22:48:00 Test Item Value Reference Range Interpretation Comments VANCOMYCIN TROUGH (BEAKER) (test 3.6 ug/mL 10.0-20.0 L code = 522) Distribution Center Manager ID - MARIZA [id number] 22:44:00 Test Item Value Reference Range Interpretation Comments POTASSIUM (BEAKER) (test code = 3.9 meq/L 3.5-5.1 379) Distribution Center Manager ID - MARIZA LBLOOD GAS, [id number] 22:15:00 Test Item Value Reference Range Interpretation [...] (test code = 1819) 70.0 % POCT-GLUCOSE [id number] 17:26:00 Test Item Value Reference Range Interpretation Comments POC-GLUCOSE METER 227 mg/dL 70-110 H : TESTED A T [facility] 6720 (BEAKER) (test code = KVNG Wolfe [facility], 1538) 59994: Distribution Center Manager/Techni lavinia ID = [id number] for Marcel rachelsannaDarian (Agency) [id number] 16:08:00 Test Item Value Reference Range Interpretation Comments POTASSIUM (BEAKER) (test code = 3.7 meq/L 3.5-5.1 379) Distribution Center Manager ID - TIMOTHY WBLOOD GAS, [id number] 16:00:00 Test Item Value Reference Range Interpretation [...] (BEAKER) (test code = 1819) 70.0 % [id number] 14:32:00 Test Item Value Reference Range Interpretation Comments FERRITIN (BEAKER) (test code = 775.54 ng/mL 5.00-275.00 H 361) Distribution Center Manager GLORIA AGUIRRE [id number] 12:00:00 Test Item Value Reference Range Interpretation [...] 376 U/L 125-220 H code = 635) Distribution Center Manager GLORIA AGUIRRE WURIC [id number] 11:29:00 Test Item Value Reference Range Interpretation Comments URIC ACID (BEAKER) (test code = 3.3 mg/dL 2.6-7.2 773) Distribution Center Manager GLORIA AGUIRRE WPOCT-GLUCOSE [id number] 11:26:00 Test Item Value Reference Range Interpretation Comments POC-GLUCOSE METER 232 mg/dL 70-110 H : TESTED A T [facility] 6720 (BEAKER) (test code = KVNG Wolfe [place], 1538) 64123: Distribution Center Manager/Techni lavinia ID = [id number] for WILD HARRISON [id number] 10:17:00 Test Item Value Reference Range Interpretation Comments POTASSIUM (BEAKER) (test code = 3.6 meq/L 3.5-5.1 379) Distribution Center Manager ID - TIMOTHY [id number] 10:17:00 Test Item Value Reference Range Interpretation Comments MAGNESIUM (BEAKER) (test code = 2.0 mg/dL 1.6-2.6 627) Distribution Center Manager ID - TIMOTHY WBLOOD GAS, [id number] 10:05:00 Test Item Value Reference Range Interpretation [...] (test code = 1819) 70.0 % CALCIUM, [id number] 10:05:00 Test Item Value Reference Range Interpretation Comments CALCIUM IONIZED (BEAKER) (test 1.12 mmol/L 1.12-1.27 code = 698) PH, BLOOD (BEAKER) (test code = 7.47 1810) POCT-GLUCOSE [id number] 06:02:00 Test Item Value Reference Range Interpretation Comments POC-GLUCOSE METER 230 mg/dL 70-110 H : TESTED A T [facility] 6720 (BEAKER) (test code = KVNG Wolfe [place], 1538) 29073: Distribution Center Manager/Techni lavinia ID = [id number] for PETRATATIANNA REMI BLOOD GAS, [id number] 04:51:00 Test Item Value Reference Range Interpretation [...] (test code = 1819) 70.0 % CALCIUM, [id number] 04:51:00 Test Item Value Reference Range Interpretation Comments CALCIUM IONIZED (BEAKER) (test 1.05 mmol/L 1.12-1.27 L code = 698) PH, BLOOD (BEAKER) (test code = 7.47 1810) [id number] 04:46:00 Test Item Value Reference Range Interpretation Comments PARTIAL THROMBOPLASTIN TIME 64.9 seconds 22.5-36.0 H (BEAKER) (test code = 760) 6 hours after starting heparin infusion and as indicated per sliding scale [id number] 04:40:00 Test Item Value Reference Range Interpretation Comments PHOSPHORUS (BEAKER) (test code = 3.8 mg/dL 2.3-4.7 604) Distribution Center Manager ID - PIAYA [id number] 04:40:00 Test Item Value Reference Range Interpretation Comments MAGNESIUM (BEAKER) (test code = 2.0 mg/dL 1.6-2.6 627) Distribution Center Manager ID - PIAYA LCOMPREHENSIVE METABOLIC [id number] 04:40:00 Test Item Value Reference Range Interpretation [...] S NOT APPLICABLE FOR DIALYSIS PATIEN TS. Distribution Center Manager ID - PIAYA LCBC W/PLT COUNT & AUTO [id number] 04:22:00 Test Item Value Reference Range Interpretation [...] (BEAKER) (test code = 2801) BLOOD GAS, [id number] 23:59:00 Test Item Value Reference Range Interpretation [...] (test code = 1819) 70.0 % POCT-GLUCOSE [id number] 23:32:00 Test Item Value Reference Range Interpretation Comments POC-GLUCOSE METER 219 mg/dL 70-110 H : TESTED A T [facility] 6720 (BEAKER) (test code = [facility] [place], 1538) [address]: Distribution Center Manager/Techni lavinia ID = [id number] for ANN MARIE COCHRAN POCT-GLUCOSE [id number] 18:30:00 Test Item Value Reference Range Interpretation Comments POC-GLUCOSE METER 97 mg/dL 70-110 : TESTED A T [facility] 6720 (BEAKER) (test code = [facility], 1538) [address]: Distribution Center Manager/Techni lavinia ID = [id number] for MELISSA NUÑEZ BLOOD GAS, [id number] 16:25:00 Test Item Value Reference Range Interpretation [...] (BEAKER) (test code = 1819) 75.0 % [id number] 15:37:00 Test Item Value Reference Range Interpretation Comments FERRITIN (BEAKER) (test code = 839.22 ng/mL 5.00-275.00 H 361) Distribution Center Manager ID - ERIN [id number] 11:57:00 Test Item Value Reference Range Interpretation Comments PROCALCITONIN (BEAKER) (test code 0.05 ng/mL <0.05 H = 3036) SEPSIS RISK (ng/mL)Low: 0.05-0.50Intermediate: 0.51-2.00High: >=2.01LACTATE DEHYDROGENASE (LDH)2019-09-24 11:21:00 Test Item Value Reference Range Interpretation Comments LACTATE DEHYDROGENASE (BEAKER) (test 378 U/L 125-220 H code = 635) Distribution Center Manager ID - VALENTEC-REACTIVE [id number] 11:21:00 Test Item Value Reference Range Interpretation Comments C-REACTIVE PROTEIN (BEAKER) (test 0.50 mg/dL 0.00-0.50 code = 676) Distribution Center Manager ID - [id number] 11:18:00 Test Item Value Reference Range Interpretation [...] of thrombosis is within 95-100% range.POCT- GLUCOSE [id number] 11:12:00 Test Item Value Reference Range Interpretation Comments POC-GLUCOSE METER 275 mg/dL 70-110 H : TESTED A T [facility] 6720 (BEAKER) ([facility], = 1538) [address]: Distribution Center Manager/Techni lavinia ID = [id number] for PAT MONROY BLOOD GAS, [id number] 11:03:00 Test Item Value Reference Range Interpretation [...] 1819) 85.0 % URINALYSIS W/ REFLEX URINE [id number] 10:54:00 Test Item Value Reference Range Interpretation [...] /LPF 514) SOURCE(BEAKER) (test code = 2795) Distribution Center Manager ID - [auto]Distribution Center Manager ID - hankCBC W/PLT COUNT & AUTO [...] MORPHOLOGY (BEAKER) (test code Normal = 486) [id number] 08:39:00 Test Item Value Reference Range Interpretation [...] thrombosis and/or pulmonary embolus.HIGH RISK: Target INR is 2.5-3.5 for patients wiht mechanical heart valves.RAD, CHEST, 1 VIEW, NON [id number] 08:15:00Reason for exam:->increasing O2 requirement; PNA evaluationShould this be performed at the bedside?->YesFINAL REPORT RAD, CHEST, 1 VIEW, NON DEPT INDICATION: increasing O2 requirement; PNA evaluation COMPARISON: September 22, 2019 FINDINGS: Portable frontal view of the chest. IMPRESSION:Limited by underpenetration.Support Lines: Stable. Lungs and pleura: Worsening interstitial and pleural opacities. No lobar consolidation. No pneumothorax.Heart and mediastinum: Stable contours. Additional findings: None. Signed: JR Spicer Robert MDReport Verified Date/Time: 09/24/2019 08:15:15 Reading Location: [facility] Radiology Reading Room TROPONIN [id number] 06:33:00 Test Item Value Reference Range Interpretation [...] failure, acidosis, acute neurological disease, and persistent tachyarrhythmia.Distribution Center Manager ID - VALENTEPHOSPHORUS 2019-09-24 06:31:00 Test Item Value Reference Range Interpretation Comments PHOSPHORUS (BEAKER) (test code = 4.2 mg/dL 2.3-4.7 604) Distribution Center Manager ID - [id number] 06:31:00 Test Item Value Reference Range Interpretation Comments MAGNESIUM (BEAKER) (test code = 2.0 mg/dL 1.6-2.6 627) Distribution Center Manager ID - VALENTECOMPREHENSIVE METABOLIC [id number] 06:31:00 Test Item Value Reference Range Interpretation [...] 347) EGFR (BEAKER) (test 85 mL/min/1.73 ESTIMA DEBBIE GFR IS code = 1092) sq m NOT ACCURATE CREATININE CLEARANCE IN PREDICTING GLOMERULAR FILTRATION RATE . ESTIMATED GFR I S NOT APPLICABLE FOR DIALYSIS PATIEN TS. Distribution Center Manager ID - EMERSONBASIC METABOLIC [id number] 06:31:00 Test Item Value Reference Range Interpretation [...] 697) EGFR (BEAKER) (test 85 mL/min/1.73 ESTIMA DEBBIE GFR IS code = 1092) sq m NOT ACCURATE CREATININE CLEARANCE IN PREDICTING GLOMERULAR FILTRATION RATE . ESTIMATED GFR I S NOT APPLICABLE FOR DIALYSIS PATIEN TS. [id number] 06:13:00 Test Item Value Reference Range Interpretation Comments PARTIAL THROMBOPLASTIN TIME 72.0 seconds 22.5-36.0 H (BEAKER) (test code = 760) 6 hours after starting heparin infusion and as indicated per sliding scalePOCT- GLUCOSE [id number] 05:59:00 Test Item Value Reference Range Interpretation Comments POC-GLUCOSE METER 308 mg/dL 70-110 H : [facility] (BEAKER) (test code = K[facility] [place] [facility], 1538) [address]: Distribution Center Manager/Techni lavinia ID = [id number] for EM SHANAEOBE, ABRAHAM CALCIUM, [id number] 04:01:00 Test Item Value Reference Range Interpretation Comments CALCIUM IONIZED (BEAKER) (test 1.13 mmol/L 1.12-1.27 code = 698) PH, BLOOD (BEAKER) (test code = 7.46 1810) BLOOD GAS, [id number] 04:01:00 Test Item Value Reference Range Interpretation [...] (test code = 1819) 70.0 % TROPONIN [id number] 01:35:00 Test Item Value Reference Range Interpretation [...] failure, acidosis, acute neurological disease, and persistent tachyarrhythmia.Distribution Center Manager ID - BSBASIC METABOLIC PANEL 2019-09-24 01:28:00 [...] 697) EGFR (BEAKER) (test 96 mL/min/1.73 ESTIMA DEBBIE GFR IS code = 1092) sq m NOT ACCURATE CREATININE CLEARANCE IN PREDICTING GLOMERULAR FILTRATION RATE . ESTIMATED GFR I S NOT APPLICABLE FOR DIALYSIS PATIEN TS. Distribution Center Manager ID - BSPOCT-GLUCOSE [id number] 00:03:00 Test Item Value Reference Range Interpretation Comments POC-GLUCOSE METER 213 mg/dL 70-110 H : TESTED A T [facility] 6720 (BEAKER) (test code = [place], 1538) [address]: Distribution Center Manager/Techni lavinia ID = [id number] for VO IN EDD [id number] 23:12:00 Test Item Value Reference Range Interpretation Comments PHOSPHORUS (BEAKER) (test code = 4.2 mg/dL 2.3-4.7 604) Distribution Center Manager ID - [id number] 23:12:00 Test Item Value Reference Range Interpretation Comments MAGNESIUM (BEAKER) (test code = 2.0 mg/dL 1.6-2.6 627) Distribution Center Manager ID - BSCALCIUM, [id number] 22:57:00 Test Item Value Reference Range Interpretation Comments CALCIUM IONIZED (BEAKER) (test 1.09 mmol/L 1.12-1.27 L code = 698) PH, BLOOD (BEAKER) (test code = 7.43 1810) BLOOD GAS, [id number] 21:24:00 Test Item Value Reference Range Interpretation [...] (test code = 1819) 45.0 % POCT-GLUCOSE [id number] 16:30:00 Test Item Value Reference Range Interpretation Comments POC-GLUCOSE METER 246 mg/dL 70-110 H : TESTED A T [facility] 6720 (BEAKER) (test code = [facility], 1538) [address]: Distribution Center Manager/Techni lavinia ID = [id number] for FLAKITA BELTRAN BLOOD GAS, [id number] 15:59:00 Test Item Value Reference Range Interpretation [...] (BEAKER) (test code = 1819) 70.0 % [id number] 15:45:00 Test Item Value Reference Range Interpretation Comments POTASSIUM (BEAKER) (test code = 3.8 meq/L 3.5-5.1 379) Distribution Center Manager ID - [id number] 15:45:00 Test Item Value Reference Range Interpretation Comments MAGNESIUM (BEAKER) (test code = 2.2 mg/dL 1.6-2.6 627) Distribution Center Manager ID - AAHAMIDPOCT-GLUCOSE [id number] 12:00:00 Test Item Value Reference Range Interpretation Comments POC-GLUCOSE METER 277 mg/dL 70-110 H : TESTED A T [facility] 6720 (BEAKER) (test code = K[facility] [place] [facility], 1538) [address]: Distribution Center Manager/Techni lavinia ID = [id number] for WILD HARRISON [id number] 11:57:00 Test Item Value Reference Range Interpretation Comments POTASSIUM (BEAKER) (test code = 3.8 meq/L 3.5-5.1 379) Distribution Center Manager ID - AAHAMIDBLOOD GAS, [id number] 09:30:00 Test Item Value Reference Range Interpretation [...] (test code = 1819) 70.0 % SARS-COV2/RT-PCR ([facility])2019-09-23 08:23:00 Test Item Value Reference Range Interpretation Comments SARS-COV2/RT-PCR (test code = Positive Not Detected, Negative A A [id number]) SARS-COV-2 PERFORMING LAB CPL (test code = 3120412) THROMBOELASTOGRAPH (TEG)2019-09-23 07:57:00 Test Item Value Reference [...] = 1413) CBC W/PLT COUNT & AUTO [id number] 06:18:00 Test Item Value Reference Range Interpretation [...] CONCENTRATION Adequate (CELLAVISION)(BEAKER) (test code = 3438) Distribution Center Manager ID - Valente Guzman comments: Slide comments:POCT-GLUCOSE METER 2019-09-23 05:50:00 Test Item Value Reference Range Interpretation Comments POC-GLUCOSE METER 221 mg/dL 70-110 H : TESTED A T [facility] 6720 (BEAKER) (test code = [place], 1538) [address]: Distribution Center Manager/Techni lavinia ID = [id number] for Victoria Sharif [id number] 05:46:00 Test Item Value Reference Range Interpretation [...] infusion and as indicated per sliding scale [id number] 05:22:00 Test Item Value Reference Range Interpretation Comments PHOSPHORUS (BEAKER) (test code = 3.9 mg/dL 2.3-4.7 604) Distribution Center Manager ID - [id number] 05:22:00 Test Item Value Reference Range Interpretation Comments MAGNESIUM (BEAKER) (test code = 1.9 mg/dL 1.6-2.6 627) Distribution Center Manager ID - LACOMPREHENSIVE METABOLIC [id number] 05:22:00 Test Item Value Reference Range Interpretation [...] 347) EGFR (BEAKER) (test 94 mL/min/1.73 ESTIMA DEBBIE GFR IS code = 1092) sq m NOT ACCURATE CREATININE CLEARANCE IN PREDICTING GLOMERULAR FILTRATION RATE . ESTIMATED GFR I S NOT APPLICABLE FOR DIALYSIS PATIEN TS. Distribution Center Manager ID - LABLOOD GAS, [id number] 05:03:00 Test Item Value Reference Range Interpretation [...] (test code = 1819) 55.0 % CALCIUM, [id number] 05:02:00 Test Item Value Reference Range Interpretation Comments CALCIUM IONIZED (BEAKER) (test 1.14 mmol/L 1.12-1.27 code = 698) PH, BLOOD (BEAKER) (test code = 7.48 1810) BLOOD GAS, [id number] 23:17:00 Test Item Value Reference Range Interpretation [...] (test code = 1819) 55.0 % POCT-GLUCOSE [id number] 23:15:00 Test Item Value Reference Range Interpretation Comments POC-GLUCOSE METER 211 mg/dL 70-110 H : TESTED A T [facility] 6720 (BEAKER) (test code = [facility], 1538) [address]: Distribution Center Manager/Techni lavinia ID = [id number] for Gagandeep Dwyer BLOOD GAS, [id number] 19:10:00 Test Item Value Reference Range Interpretation [...] FIO2 rohan nged per code = 1819) [id number] is a corrected resul t. Previous result was 100.0 % on 09/21 at 0926 CDT POCT-GLUCOSE [id number] 18:13:00 Test Item Value Reference Range Interpretation Comments POC-GLUCOSE METER 265 mg/dL 70-110 H : TESTED A T [facility] 6720 (BEAKER) (test code = [facility] [place] [facility], 1538) [address]: Distribution Center Manager/Techni lavinia ID = [id number] for DEDE ROSALES BLOOD GAS, [id number] 18:11:00 Test Item Value Reference Range Interpretation [...] (test code = 1819) 55.0 % URIC [id number] 12:48:00 Test Item Value Reference Range Interpretation Comments URIC ACID (BEAKER) (test code = 3.6 mg/dL 2.6-7.2 773) Distribution Center Manager ID - DBBLOOD GAS, [id number] 12:27:00 Test Item Value Reference Range Interpretation [...] (test code = 1819) 60.0 % POCT-GLUCOSE [id number] 12:09:00 Test Item Value Reference Range Interpretation Comments POC-GLUCOSE METER 253 mg/dL 70-110 H : TESTED A T [facility] 6720 (BEAKER) (test code = K[facility] [place] [facility], 1538) [address]: Distribution Center Manager/Techni lavinia ID = [id number] for DEDE ROSALES [id number] 10:57:00 Test Item Value Reference Range Interpretation Comments FERRITIN (BEAKER) (test code = 1604.60 ng/mL 5.00-275.00 H 361) Distribution Center Manager ID - [id number] 10:18:00 Test Item Value Reference Range Interpretation Comments PROCALCITONIN (BEAKER) (test code 0.08 ng/mL <0.05 H = 3036) SEPSIS RISK (ng/mL)Low: 0.05-0.50Intermediate: 0.51-2.00High: >=2.01LACTATE DEHYDROGENASE (LDH)2019-09-22 09:47:00 Test Item Value Reference Range Interpretation Comments LACTATE DEHYDROGENASE (BEAKER) (test 463 U/L 125-220 H code = 635) Distribution Center Manager ID - DBC-REACTIVE [id number] 09:47:00 Test Item Value Reference Range Interpretation Comments C-REACTIVE PROTEIN (BEAKER) (test 0.64 mg/dL 0.00-0.50 H code = 676) Distribution Center Manager ID - [id number]-[id number] 09:40:00 Test Item Value Reference Range Interpretation [...] exclusion of thrombosis is within 95-100% range. [id number] 09:39:00 Test Item Value Reference Range Interpretation [...] thrombosis and/or pulmonary embolus.HIGH RISK: Target INR is 2.5-3.5 for patients wiht mechanical heart valves.CBC W/PLT COUNT & AUTO [id number] 07:25:00 Test Item Value Reference Range Interpretation [...] CONCENTRATION Adequate (CELLAVISION)(BEAKER) (test code = 3438) Distribution Center Manager ID - Mary Ann comments: Slide comments:POCT-GLUCOSE [id number] 06:39:00 Test Item Value Reference Range Interpretation Comments POC-GLUCOSE METER 209 mg/dL 70-110 H : TESTED A T [facility] 6720 (BEAKER) (test code = [place], 1538) [address]: Distribution Center Manager/Techni lavinia ID = [id number] for EM ELOBE, CHIMAKA CALCIUM, [id number] 04:53:00 Test Item Value Reference Range Interpretation Comments CALCIUM IONIZED (BEAKER) (test 1.16 mmol/L 1.12-1.27 code = 698) PH, BLOOD (BEAKER) (test code = 7.44 4240) OXYGEN SATURATION, [id number] 04:49:00 Test Item Value Reference Range Interpretation Comments O2 SATURATION (MEASURED) (BEAKER) 96.9 % (test code = 1455) CENTRAL LINE ONLY Please draw from central venous line - do NOT draw from arterial [id number] 04:22:00 Test Item Value Reference Range Interpretation Comments PHOSPHORUS (BEAKER) (test code = 4.1 mg/dL 2.3-4.7 604) Distribution Center Manager ID - [id number] 04:22:00 Test Item Value Reference Range Interpretation Comments MAGNESIUM (BEAKER) (test code = 2.0 mg/dL 1.6-2.6 627) Distribution Center Manager ID - LACOMPREHENSIVE METABOLIC [id number] 04:22:00 Test Item Value Reference Range Interpretation [...] 347) EGFR (BEAKER) (test 99 mL/min/1.73 ESTIMA DEBBIE GFR IS code = 1092) sq m NOT ACCURATE CREATININE CLEARANCE IN PREDICTING GLOMERULAR FILTRATION RATE . ESTIMATED GFR I S NOT APPLICABLE FOR DIALYSIS PATIEN TS. Distribution Center Manager ID - [id number] 04:20:00 Test Item Value Reference Range Interpretation Comments MAGNESIUM (BEAKER) (test code = 2.0 mg/dL 1.6-2.6 627) Distribution Center Manager ID - [id number] 04:08:00 Test Item Value Reference Range Interpretation Comments PARTIAL THROMBOPLASTIN TIME 66.1 seconds 22.5-36.0 H (BEAKER) (test code = 760) 6 hours after starting heparin infusion and as indicated per sliding scaleRAD, CHEST, 1 VIEW, NON [id number] 03:51:00Reason for exam:->On mechanical ventilationShould this be performed at the bedside?->YesFINAL REPORT RAD, CHEST, 1 VIEW, NON DEPT INDICATION: On mechanical ventilation COMPARISON: Prior day's exam FINDINGS: Portable frontal view of the chest. IMPRESSION: Support Lines: Stable. Lungs and pleura: Unchanged bilateral airspace opacities. No sizable effusion. No pneumothorax.Heart and mediastinum: Stable contours. Additional findings: None. Signed: Saeed Morris MDReport V erified Date/Time: 09/22/2019 03:51:37 BLOOD GAS, [id number] 00:33:00 Test Item Value Reference Range Interpretation [...] (test code = 1819) 70.0 % POCT-GLUCOSE [id number] 00:16:00 Test Item Value Reference Range Interpretation Comments POC-GLUCOSE METER 237 mg/dL 70-110 H : TESTED A T [facility] 6720 (BEAKER) (test code = [facility], 1538) [address]: Distribution Center Manager/Techni lavinia ID = [id number] for CESAR CRAIG, CHIMAKA POCT-GLUCOSE [id number] 21:38:00 Test Item Value Reference Range Interpretation Comments POC-GLUCOSE METER 245 mg/dL 70-110 H : TESTED A T [facility] 6720 (BEAKER) (test code = [facility], 1538) 51456: Distribution Center Manager/Techni lavinia ID = [id number] for CESAR JOLLYOBE, CHIMAKA POCT-GLUCOSE [id number] 18:32:00 Test Item Value Reference Range Interpretation Comments POC-GLUCOSE METER 236 mg/dL 70-110 H : TESTED A T [facility] 6720 (BEAKER) (test code = [facility], 1538) 87896: Distribution Center Manager/Techni lavinia ID = [id number] for PATRICK JUAREZ [id number] 18:27:00 Test Item Value Reference Range Interpretation Comments PARTIAL THROMBOPLASTIN TIME 70.3 seconds 22.5-36.0 H (BEAKER) (test code = 760) BLOOD GAS, [id number] 18:15:00 Test Item Value Reference Range Interpretation [...] code = 1819) 60.0 % BASIC METABOLIC [id number] 15:48:00 Test Item Value Reference Range Interpretation [...] 697) EGFR (BEAKER) (test 99 mL/min/1.73 ESTIMA DEBBIE GFR IS code = 1092) sq m NOT ACCURATE CREATININE CLEARANCE IN PREDICTING GLOMERULAR FILTRATION RATE . ESTIMATED GFR I S NOT APPLICABLE FOR DIALYSIS PATIEN TS. Distribution Center Manager ID - NTPPOCT-GLUCOSE [id number] 11:59:00 Test Item Value Reference Range Interpretation Comments POC-GLUCOSE METER 262 mg/dL 70-110 H : [facility] (BEAKER) (test code = [place], 1538) [address]: Distribution Center Manager/Techni lavinia ID = [id number] for PATRICK JUAREZ BLOOD GAS, [id number] 10:22:00 Test Item Value Reference Range Interpretation [...] (BEAKER) (test code = 1819) 60.0 % [id number] 10:21:00 Test Item Value Reference Range Interpretation Comments PARTIAL THROMBOPLASTIN TIME 71.9 seconds 22.5-36.0 H (BEAKER) (test code = 760) CBC W/PLT COUNT & AUTO [id number] 07:30:00 Test Item Value Reference Range Interpretation [...] CONCENTRATION Adequate (CELLAVISION)(BEAKER) (test code = 3438) Distribution Center Manager ID - Mary Ann comments: Slide comments:POCT-GLUCOSE [id number] 06:29:00 Test Item Value Reference Range Interpretation Comments POC-GLUCOSE METER 229 mg/dL 70-110 H : Will Rep eat Test: (BEAKER) (test code = TESTED AT [facility] 6720 4088) [facility], [address]: Distribution Center Manager/Techni lavinia ID = [id number] for [facility] DCALIREZA THROMBOELASTOGRAPH (TEG)2019-09-21 04:31:00 Test Item Value Reference [...] MM 55.0-65.0 H (test code = 1413) [id number] 04:25:00 Test Item Value Reference Range Interpretation Comments PHOSPHORUS (BEAKER) (test code = 3.2 mg/dL 2.3-4.7 604) Distribution Center Manager ID - BRI [id number] 04:25:00 Test Item Value Reference Range Interpretation Comments MAGNESIUM (BEAKER) (test code = 1.9 mg/dL 1.6-2.6 627) Distribution Center Manager ID - BRI MCOMPREHENSIVE METABOLIC [id number] 04:25:00 Test Item Value Reference Range Interpretation [...] S NOT APPLICABLE FOR DIALYSIS PATIEN TS. Distribution Center Manager ID - BRI [id number] 03:53:00 Test Item Value Reference Range Interpretation Comments PARTIAL THROMBOPLASTIN TIME 63.9 seconds 22.5-36.0 H (BEAKER) (test code = 760) 6 hours after starting heparin infusion and as indicated per sliding scale CALCIUM, [id number] 03:40:00 Test Item Value Reference Range Interpretation Comments CALCIUM IONIZED (BEAKER) (test 1.10 mmol/L 1.12-1.27 L code = 698) PH, BLOOD (BEAKER) (test code = 7.45 1810) OXYGEN SATURATION, [id number] 03:39:00 Test Item Value Reference Range Interpretation Comments O2 SATURATION (MEASURED) (BEAKER) 92.6 % (test code = 1455) CENTRAL LINE ONLY Please draw from central venous line - do NOT draw from arterial linePOCT-GLUCOSE [id number] 00:38:00 Test Item Value Reference Range Interpretation Comments POC-GLUCOSE METER 258 mg/dL 70-110 H : [facility] (BEAKER) (test code = [place], 1538) [address]: Distribution Center Manager/Techni lavinia ID = [id number] for [facility] JESÚSJOANN BLOOD GAS, [id number] 00:36:00 Test Item Value Reference Range Interpretation [...] (test code = 1819) 70.0 % POCT-GLUCOSE [id number] 20:40:00 Test Item Value Reference Range Interpretation Comments POC-GLUCOSE METER 220 mg/dL 70-110 H : TESTED A T [facility] 6720 (BEAKER) (test code = [facility], 153) [address]: Distribution Center Manager/Techni lavinia ID = [id number] for ME RSHA, MAEDOT [id number] 19:36:00 Test Item Value Reference Range Interpretation Comments PARTIAL THROMBOPLASTIN TIME 68.0 seconds 22.5-36.0 H (BEAKER) (test code = 760) BLOOD [id number] 19:00:00 Test Item Value Reference Range Interpretation Comments CULTURE (BEAKER) (test No growth in 5 days code = 1095) BLOOD [id number] 19:00:00 Test Item Value Reference Range Interpretation Comments CULTURE (BEAKER) (test No growth in 5 days code = 1095) BLOOD GAS, [id number] 18:41:00 Test Item Value Reference Range Interpretation [...] (test code = 1819) 70.0 % POCT-GLUCOSE [id number] 18:17:00 Test Item Value Reference Range Interpretation Comments POC-GLUCOSE METER 228 mg/dL 70-110 H : TESTED A T [facility] 6720 (BEAKER) (test code = [facility], 1538) [address]: Distribution Center Manager/Techni lavinia ID = [id number] for AM IN, JUICE BASIC METABOLIC [id number] 16:22:00 Test Item Value Reference Range Interpretation [...] 697) EGFR (BEAKER) (test 92 mL/min/1.73 ESTIMA DEBBIE GFR IS code = 1092) sq m NOT ACCURATE CREATININE CLEARANCE IN PREDICTING GLOMERULAR FILTRATION RATE . ESTIMATED GFR I S NOT APPLICABLE FOR DIALYSIS PATIEN TS. Distribution Center Manager ID - [id number] 14:18:00 Test Item Value Reference Range Interpretation Comments PARTIAL THROMBOPLASTIN TIME 65.8 seconds 22.5-36.0 H (BEAKER) (test code = 760) BLOOD GAS, [id number] 13:01:00 Test Item Value Reference Range Interpretation [...] (test code = 1819) 70.0 % POCT-GLUCOSE [id number] 12:38:00 Test Item Value Reference Range Interpretation Comments POC-GLUCOSE METER 271 mg/dL 70-110 H : TESTED A T [facility] 6720 (BEAKER) (test code = [place], 1538) [address]: Distribution Center Manager/Techni lavinia ID = [id number] for MARIANN LALA [id number] 11:22:00 Test Item Value Reference Range Interpretation Comments FERRITIN (BEAKER) (test code = 2208.69 ng/mL 5.00-275.00 H 361) Distribution Center Manager ID - MARIZA [id number] 10:43:00 Test Item Value Reference Range Interpretation [...] exclusion of thrombosis is within 95-100% range. [id number] 10:42:00 Test Item Value Reference Range Interpretation [...] thrombosis and/or pulmonary embolus.HIGH RISK: Target INR is 2.5-3.5 for patients wiht mechanical heart valves.[id number] 10:40:00 Test Item Value Reference Range Interpretation Comments PROCALCITONIN (BEAKER) (test code 0.21 ng/mL <0.05 H = 3036) SEPSIS RISK (ng/mL)Low: 0.05-0.50Intermediate: 0.51-2.00High: >=2.01LACTATE DEHYDROGENASE (LDH)2019-09-20 10:19:00 Test Item Value Reference Range Interpretation Comments LACTATE DEHYDROGENASE 620 U/L 125-220 H Specim en slightly (BEAKER) (test code = hemoly zed 635) Distribution Center Manager ID - NTPC-REACTIVE [id number] 10:11:00 Test Item Value Reference Range Interpretation Comments C-REACTIVE PROTEIN (BEAKER) (test 2.08 mg/dL 0.00-0.50 H code = 676) Distribution Center Manager ID - NTPMISCELLANEOUS LAB [id number] 07:51:00 Test Item Value Reference Range Interpretation Comments SCAN RESULT (test code = 1152968) CBC W/PLT COUNT & AUTO [id number] 07:39:00 Test Item Value Reference Range Interpretation [...] CONCENTRATION Adequate (CELLAVISION)(BEAKER) (test code = 3438) Distribution Center Manager ID - Erin Danis comments: Slide comments:COMPREHENSIVE METABOLIC [id number] 05:50:00 Test Item Value Reference Range Interpretation [...] 347) EGFR (BEAKER) (test 81 mL/min/1.73 ESTIMA DEBBIE GFR IS code = 1092) sq m NOT ACCURATE CREATININE CLEARANCE IN PREDICTING GLOMERULAR FILTRATION RATE . ESTIMATED GFR I S NOT APPLICABLE FOR DIALYSIS PATIEN TS. Distribution Center Manager ID - CHINOBERNADINE LPOCT-GLUCOSE [id number] 05:46:00 Test Item Value Reference Range Interpretation Comments POC-GLUCOSE METER 233 mg/dL 70-110 H : TESTED A T [facility] (BEAKER) (test code = KVNG Wolfe [place], 1538) 30711: Distribution Center Manager/Techni lavinia ID = [id number] for TO LUIS SOLORIO [id number] 05:46:00 Test Item Value Reference Range Interpretation Comments PHOSPHORUS (BEAKER) (test code = 2.5 mg/dL 2.3-4.7 604) Distribution Center Manager ID Osmani DAWKINS [id number] 05:46:00 Test Item Value Reference Range Interpretation Comments MAGNESIUM (BEAKER) (test code = 1.9 mg/dL 1.6-2.6 627) Distribution Center Manager ID - MARIZA [id number] 05:11:00 Test Item Value Reference Range Interpretation Comments PARTIAL THROMBOPLASTIN TIME 63.7 seconds 22.5-36.0 H (BEAKER) (test code = 760) 6 hours after starting heparin infusion and as indicated per sliding scaleOXYGEN SATURATION, [id number] 05:03:00 Test Item Value Reference Range Interpretation Comments O2 SATURATION (MEASURED) (BEAKER) 82.3 % (test code = 1455) CENTRAL LINE ONLY Please draw from central venous line - do NOT draw from arterial lineCALCIUM, [id number] 05:02:00 Test Item Value Reference Range Interpretation Comments CALCIUM IONIZED (BEAKER) (test 1.02 mmol/L 1.12-1.27 L code = 698) PH, BLOOD (BEAKER) (test code = 7.45 0170) BLOOD GAS, [id number] 04:51:00 Test Item Value Reference Range Interpretation [...] (BEAKER) (test code = 1819) 70.0 % [id number] 00:13:00 Test Item Value Reference Range Interpretation Comments PARTIAL THROMBOPLASTIN TIME 62.4 seconds 22.5-36.0 H (BEAKER) (test code = 760) BLOOD GAS, [id number] 23:50:00 Test Item Value Reference Range Interpretation [...] (test code = 1819) 70.0 % POCT-GLUCOSE [id number] 23:33:00 Test Item Value Reference Range Interpretation Comments POC-GLUCOSE METER 311 mg/dL 70-110 H : TESTED A T [facility] 6720 (BEAKER) (test code = KVNG [place] ID, 1538) 65952: Distribution Center Manager/Techni lavinia ID = [id number] for LUIS CALLE POCT-GLUCOSE [id number] 20:48:00 Test Item Value Reference Range Interpretation Comments POC-GLUCOSE METER 324 mg/dL 70-110 H : TESTED A T [facility] 6720 (BEAKER) (test code = [facility], 1538) 84492: Distribution Center Manager/Techni lavinia ID = [id number] for LUIS CALLE [id number] 17:41:00 Test Item Value Reference Range Interpretation Comments PARTIAL THROMBOPLASTIN TIME 65.5 seconds 22.5-36.0 H (BEAKER) (test code = 760) BASIC METABOLIC [id number] 17:20:00 Test Item Value Reference Range Interpretation [...] 697) EGFR (BEAKER) (test 76 mL/min/1.73 ESTIMA DEBBIE GFR IS code = 1092) sq m NOT ACCURATE CREATININE CLEARANCE IN PREDICTING GLOMERULAR FILTRATION RATE . ESTIMATED GFR I S NOT APPLICABLE FOR DIALYSIS PATIEN TS. Distribution Center Manager ID - HANSA CPOCT-GLUCOSE [id number] 17:08:00 Test Item Value Reference Range Interpretation Comments POC-GLUCOSE METER 300 mg/dL 70-110 H : TESTED A T [facility] 6720 (BEAKER) ([facility] = [facility], 1538) 64801: Distribution Center Manager/Techni lavinia ID = [id number] for JOY CRUZ BLOOD GAS, [id number] 17:07:00 Test Item Value Reference Range Interpretation [...] (test code = 1819) 70.0 % POCT-GLUCOSE [id number] 13:03:00 Test Item Value Reference Range Interpretation Comments POC-GLUCOSE METER 253 mg/dL 70-110 H : TESTED A T [facility] 6720 (BEAKER) (test code = KVNG Yaneth [place], 1538) 27724: Distribution Center Manager/Techni lavinia ID = [id number] for MISTY TiannaTARIQ FLAKITA BLOOD GAS, [id number] 13:01:00 Test Item Value Reference Range Interpretation [...] (BEAKER) (test code = 1819) 70.0 % [id number] 10:37:00 Test Item Value Reference Range Interpretation Comments PARTIAL THROMBOPLASTIN TIME 57.3 seconds 22.5-36.0 H (BEAKER) (test code = 760) BLOOD GAS, [id number] 07:12:00 Test Item Value Reference Range Interpretation [...] (test code = 1819) 70.0 % POCT-GLUCOSE [id number] 06:15:00 Test Item Value Reference Range Interpretation Comments POC-GLUCOSE METER 273 mg/dL 70-110 H : TESTED A T [facility] 6720 (BEAKER) (test code = KVNG [place], 1538) 66408: Distribution Center Manager/Techni lavinia ID = [id number] for Senait Osuna THROMBOELASTOGRAPH (TEG)2019-09-19 05:41:00 Test [...] % 0.0-5.0 H code = 1414) CALCIUM, [id number] 05:30:00 Test Item Value Reference Range Interpretation Comments CALCIUM IONIZED (BEAKER) (test 1.04 mmol/L 1.12-1.27 L code = 698) PH, BLOOD (BEAKER) (test code = 7.38 1810) RAD, CHEST, 1 VIEW, NON [id number] 04:44:00Reason for exam:->COVID pneumonia w/ pulmonary edemaFINAL REPORT RAD, CHEST, 1 VIEW, NON DEPT INDICATION: COVID pneumonia w/ pulmonary edema COMPARISON: Prior day's exam FINDINGS: Portable frontal view of the chest. IMPRESSION: Support Lines: No significant change. Lungs and pleura: Airspace and pleural opacities are similar. No pneumothorax.Heart and mediastinum: Stable contours. Additional findings: None. Signed: Brett GoldbergMDReport Verified Date/Time: 09/19/2019 04:44:42 [id number] 04:42:00 Test Item Value Reference Range Interpretation Comments PARTIAL THROMBOPLASTIN TIME 70.5 seconds 22.5-36.0 H (BEAKER) (test code = 760) 6 hours after starting heparin infusion and as indicated per sliding scale COMPREHENSIVE METABOLIC [id number] 04:17:00 Test Item Value Reference Range Interpretation [...] 347) EGFR (BEAKER) (test 69 mL/min/1.73 ESTIMA DEBBIE GFR IS code = 1092) sq m NOT ACCURATE CREATININE CLEARANCE IN PREDICTING GLOMERULAR FILTRATION RATE . ESTIMATED GFR I S NOT APPLICABLE FOR DIALYSIS PATIEN TS. Distribution Center Manager ID - MARIZA [id number] 03:56:00 Test Item Value Reference Range Interpretation Comments PHOSPHORUS (BEAKER) (test code = 2.3 mg/dL 2.3-4.7 604) Distribution Center Manager ID - MARIZA [id number] 03:56:00 Test Item Value Reference Range Interpretation Comments MAGNESIUM (BEAKER) (test code = 2.0 mg/dL 1.6-2.6 627) Distribution Center Manager ID - MARIZA LCBC W/PLT COUNT & AUTO [id number] 03:32:00 Test Item Value Reference Range Interpretation [...] (BEAKER) (test code = 2801) OXYGEN SATURATION, [id number] 03:26:00 Test Item Value Reference Range Interpretation [...] TEMPERATURE (BEAKER) (test 37.2 C code = 8228) FIO2 (BEAKER) (test code = 1819) 60.0 % POCT-GLUCOSE [id number] 00:08:00 Test Item Value Reference Range Interpretation Comments POC-GLUCOSE METER 277 mg/dL 70-110 H : TESTED A T [facility] 6720 (BEAKER) (test code = [facility], 1538) 17543: Distribution Center Manager/Techni lavinia ID = [id number] for JAS RAMON CBC W/PLT COUNT & AUTO [id number] 22:02:00 Test Item Value Reference Range Interpretation [...] 0-0 (BEAKER) (test code = 413) POCT-GLUCOSE [id number] 21:39:00 Test Item Value Reference Range Interpretation Comments POC-GLUCOSE METER 169 mg/dL 70-110 H : TESTED A T [facility] 6720 (BEAKER) (test code = [facility], 1538) 50283: Distribution Center Manager/Techni lavinia ID = [id number] for ERICA ANN MARIE GONZALEZ [id number] 20:36:00 Test Item Value Reference Range Interpretation Comments PARTIAL THROMBOPLASTIN TIME 60.4 seconds 22.5-36.0 H (BEAKER) (test code = 760) [id number] 19:24:00 Test Item Value Reference Range Interpretation Comments MAGNESIUM (BEAKER) (test code = 2.1 mg/dL 1.6-2.6 627) Distribution Center Manager ID - HANSA CTSH/FREE T4 IF [id number] 18:24:00 Test Item Value Reference Range Interpretation Comments THYROID STIMULATING HORMONE 1.019 uIU/mL 0.350-4.940 (BEAKER) (test code = 772) Distribution Center Manager ID - HANSA CBASIC METABOLIC [id number] 17:53:00 Test Item Value Reference Range Interpretation [...] 697) EGFR (BEAKER) (test 63 mL/min/1.73 ESTIMA DEBBIE GFR IS code = 1092) sq m NOT ACCURATE CREATININE CLEARANCE IN PREDICTING GLOMERULAR FILTRATION RATE . ESTIMATED GFR I S NOT APPLICABLE FOR DIALYSIS PATIEN TS. Distribution Center Manager ID - HANSA CCALCIUM, [id number] 17:34:00 Test Item Value Reference Range Interpretation Comments CALCIUM IONIZED (BEAKER) (test 1.08 mmol/L 1.12-1.27 L code = 698) PH, BLOOD (BEAKER) (test code = 7.42 1810) BLOOD GAS, [id number] 17:34:00 Test Item Value Reference Range Interpretation [...] (BEAKER) (test code = 1819) 60.0 % [id number] 17:32:00 Test Item Value Reference Range Interpretation Comments MAGNESIUM (BEAKER) (test code = 2.1 mg/dL 1.6-2.6 627) Distribution Center Manager ID - HANSA CPOCT-GLUCOSE [id number] 17:29:00 Test Item Value Reference Range Interpretation Comments POC-GLUCOSE METER 225 mg/dL 70-110 H : [facility] ([facility]ER[facility] (test code = KVNG Wolfe [facility], 1538) 88940: Distribution Center Manager/Techni lavinia ID = [id number] for [place] DELPHINE SANCHEZ CREATINE KINASE (CK)2019-09-18 13:21:00 Test Item Value Reference Range Interpretation Comments CREATINE KINASE TOTAL (BEAKER) (test 262 U/L 29-200 H code = 380) Distribution Center Manager ID - HANSA CHEMOGLOBIN [id number] 13:15:00 Test Item Value Reference Range Interpretation Comments HEMOGLOBIN A1C (BEAKER) (test code = 7.8 % 4.3-6.1 H 368) URINALYSIS W/ REFLEX URINE [id number] 13:00:00 Test Item Value Reference Range Interpretation [...] /LPF 514) SOURCE(BEAKER) (test code = 2795) Distribution Center Manager ID - [auto]Distribution Center Manager ID - techPOCT-GLUCOSE [id number] 12:38:00 Test Item Value Reference Range Interpretation Comments POC-GLUCOSE METER 204 mg/dL 70-110 H : Notified RN/MD: (BEAKER) (test code = TESTED AT [facility] 6792 9888) [facility], [address]: Distribution Center Manager/Techni lavinia ID = [id number] for [place] LULY STANLEY BLOOD GAS, [id number] 12:27:00 Test Item Value Reference Range Interpretation [...] (BEAKER) (test code = 1819) 50.0 % [id number] 10:20:00 Test Item Value Reference Range Interpretation Comments FERRITIN (BEAKER) (test code = 2093.57 ng/mL 5.00-275.00 H 361) Distribution Center Manager ID - HANSA CCBC W/PLT COUNT & AUTO [id number] 09:33:00 Test Item Value Reference Range Interpretation [...] CONCENTRATION Adequate (CELLAVISION)(BEAKER) (test code = 3438) Distribution Center Manager ID - Elvira Domínguez comments: Slide comments:[id number] 09:26:00 Test Item Value Reference Range Interpretation Comments PROCALCITONIN (BEAKER) (test code 0.35 ng/mL <0.05 H = 3036) SEPSIS RISK (ng/mL)Low: 0.05-0.50Intermediate: 0.51-2.00High: >=2.01D-DIMER 2019-09-18 09:12:00 Test Item Value Reference Range Interpretation [...] 568 U/L 125-220 H code = 635) Distribution Center Manager ID - HANSA CC-REACTIVE [id number] 09:11:00 Test Item Value Reference Range Interpretation Comments C-REACTIVE PROTEIN (BEAKER) (test 12.51 mg/dL 0.00-0.50 H code = 676) Distribution Center Manager ID - HANSA [id number] 09:03:00 Test Item Value Reference Range Interpretation [...] thrombosis and/or pulmonary embolus.HIGH RISK: Target INR is 2.5-3.5 for patients wiht mechanical heart valves.SPUTUM CULTURE + GRAM [id number] 08:35:00 Test Item Value Reference Range Interpretation Comments CULTURE (BEAKER) 1+ Normal respiratory (test code = 1095) alyse present GRAM STAIN RESULT 3+ White blood cells (BEAKER) (test code = seen 1123) GRAM STAIN RESULT 0-5 epithelial cells (BEAKER) (test code = 93461) GRAM STAIN RESULT No organisms seen (BEAKER) (test code = 63816) BLOOD GAS, [id number] 06:09:00 Test Item Value Reference Range Interpretation [...] (test code = 1819) 60.0 % POCT-GLUCOSE [id number] 06:06:00 Test Item Value Reference Range Interpretation Comments POC-GLUCOSE METER 271 mg/dL 70-110 H : TESTED A T [facility] 6720 (BEAKER) (test code = KVNG [place], 1538) 76861: Distribution Center Manager/Techni lavinia ID = [id number] for CH [facility], BRIAN COMPREHENSIVE METABOLIC [id number] 03:59:00 Test Item Value Reference Range Interpretation [...] 347) EGFR (BEAKER) (test 55 mL/min/1.73 ESTIMA DEBBIE GFR IS code = 1092) sq m NOT ACCURATE CREATININE CLEARANCE IN PREDICTING GLOMERULAR FILTRATION RATE . ESTIMATED GFR I S NOT APPLICABLE FOR DIALYSIS PATIEN TS. Distribution Center Manager ID - BRI [id number] 03:56:00 Test Item Value Reference Range Interpretation Comments PHOSPHORUS (BEAKER) (test code = 2.3 mg/dL 2.3-4.7 604) Distribution Center Manager ID - BRI [id number] 03:56:00 Test Item Value Reference Range Interpretation Comments MAGNESIUM (BEAKER) (test code = 2.1 mg/dL 1.6-2.6 627) Distribution Center Manager ID - BRI [id number] 03:53:00 Test Item Value Reference Range Interpretation Comments PARTIAL THROMBOPLASTIN TIME 54.3 seconds 22.5-36.0 H (BEAKER) (test code = 760) 6 hours after starting heparin infusion and as indicated per sliding scaleRAD, CHEST, 1 VIEW, NON [id number] 03:48:00Reason for exam:->COVID pneumonia w/ pulmonary edemaFINAL REPORT RAD, CHEST, 1 VIEW, NON DEPT INDICATION: COVID pneumonia w/ pulmonary edema COMPARISON: Prior day's exam FINDINGS: Portable frontal view of the chest. IMPRESSION: Support Lines: Stable. Lungs and pleura: Mildly increased right basilar and right apical patchy airspacedisease compatible with slightly worsening edema and/or infection. Small left pleural effusion suggested. No pneumothorax.Heart and mediastinum: Stable contours. Additional findings: None. Signed: Saeed Morriswade Verified Date/Time: 09/18/2019 03:48:20 Electronically signed by: [employer] 09/18/2019 03:48 AMOXYGEN SATURATION, [id number] 03:24:00 Test Item Value Reference Range Interpretation [...] (test code = 1819) 60.0 % POCT-GLUCOSE [id number] 00:17:00 Test Item Value Reference Range Interpretation Comments POC-GLUCOSE METER 264 mg/dL 70-110 H : TESTED A T [facility]20 (BEAKER) (test code = KVNG [place], 1538) 31433: Distribution Center Manager/Techni lavinia ID = [id number] for ARIE MCGREGOR [id number] 20:36:00 Test Item Value Reference Range Interpretation Comments PARTIAL THROMBOPLASTIN TIME 55.3 seconds 22.5-36.0 H (BEAKER) (test code = 760) Prior to initiating heparinBASIC METABOLIC [id number] 18:43:00 Test Item Value Reference Range Interpretation [...] 697) EGFR (BEAKER) (test 57 mL/min/1.73 ESTIMA DEBBIE GFR IS code = 1092) sq m NOT ACCURATE CREATININE CLEARANCE IN PREDICTING GLOMERULAR FILTRATION RATE . ESTIMATED GFR I S NOT APPLICABLE FOR DIALYSIS PATIEN TS. Distribution Center Manager ID - [id number] 18:42:00 Test Item Value Reference Range Interpretation Comments MAGNESIUM (BEAKER) (test code = 2.0 mg/dL 1.6-2.6 627) Distribution Center Manager ID - EMERSONBLOOD GAS, [id number] 18:29:00 Test Item Value Reference Range Interpretation [...] (test code = 1819) 60.0 % CALCIUM, [id number] 18:29:00 Test Item Value Reference Range Interpretation Comments CALCIUM IONIZED (BEAKER) (test 1.05 mmol/L 1.12-1.27 L code = 698) PH, BLOOD (BEAKER) (test code = 7.41 1810) Check serum Ionized Calcium level after 4 hours after IV Calcium replacement. POCT-GLUCOSE [id number] 18:17:00 Test Item Value Reference Range Interpretation Comments POC-GLUCOSE METER 216 mg/dL 70-110 H : TESTED A T [facility] 6720 (BEAKER) (test code = KVNG [place], 1538) 21124: Distribution Center Manager/Techni lavinia ID = [id number] for STEFANIA LLANES [id number] 16:26:00 Test Item Value Reference Range Interpretation Comments PARTIAL THROMBOPLASTIN TIME 47.8 seconds 22.5-36.0 H (BEAKER) (test code = 760) [id number] 15:28:00 Test Item Value Reference Range Interpretation Comments POTASSIUM (BEAKER) (test code = 2.1 meq/L 3.5-5.1 LL 379) Distribution Center Manager ID - EMERSONCALCIUM, [id number] 12:55:00 Test Item Value Reference Range Interpretation Comments CALCIUM IONIZED (BEAKER) (test 0.98 mmol/L 1.12-1.27 L code = 698) PH, BLOOD (BEAKER) (test code = 7.41 1810) POCT-GLUCOSE [id number] 12:33:00 Test Item Value Reference Range Interpretation Comments POC-GLUCOSE METER 296 mg/dL 70-110 H : TESTED A T [facility] 6720 (BEAKER) (test code = KVNG [place], 1538) 36394: Distribution Center Manager/Techni lavinia ID = [id number] for STEFANIA LLANES BLOOD GAS, [id number] 12:24:00 Test Item Value Reference Range Interpretation [...] 70.0 % CBC W/PLT COUNT & AUTO [id number] 10:09:00 Test Item Value Reference Range Interpretation [...] CONCENTRATION Adequate (CELLAVISION)(BEAKER) (test code = 3438) Distribution Center Manager ID - Rebeka Palmer comments: Slide comments:OXYGEN SATURATION, [id number] 08:54:00 Test Item Value Reference Range Interpretation Comments O2 SATURATION (MEASURED) (BEAKER) 85.9 % (test code = 1455) Please verify this is drawn from central line - NOT arterial lineRAD, CHEST, 1 VIEW, NON [id number] 08:31:00Reason for exam:->COVID pneumonia w/ pulmonary edemaFINAL REPORT CLINICAL HISTORY: COVID pneumonia w/ pulmonary edema TECHNIQUE: 1 view of the chest. COMPARISON: 09/15/2019 IMPRESSION: The supporting lines and tubes are similar appearing. Right asymmetric airspace opacities are similar appearing. There is new blunting of the left costophrenic angle. The cardiomediastinal silhouette is magnified by technique. Signed: Willie Abad MDReport Verified Date/Time: 09/17/2019 08:31:34 Reading Location: [facility] Radiology Reading Room BLOOD GAS, ARTERIAL 2019-09-17 07:45:00 Test Item Value Reference Range Interpretation [...] (BEAKER) (test code = 1819) 70.0 % [id number] 07:42:00 Test Item Value Reference Range Interpretation Comments PHOSPHORUS (BEAKER) (test code = 4.1 mg/dL 2.3-4.7 604) Distribution Center Manager ID - [id number] 07:42:00 Test Item Value Reference Range Interpretation Comments MAGNESIUM (BEAKER) (test code = 1.9 mg/dL 1.6-2.6 627) Distribution Center Manager ID - DBCOMPREHENSIVE METABOLIC [id number] 07:42:00 Test Item Value Reference Range Interpretation [...] 347) EGFR (BEAKER) (test 46 mL/min/1.73 ESTIMA DEBBIE GFR IS code = 1092) sq m NOT ACCURATE CREATININE CLEARANCE IN PREDICTING GLOMERULAR FILTRATION RATE . ESTIMATED GFR I S NOT APPLICABLE FOR DIALYSIS PATIEN TS. Distribution Center Manager ID - DBCALCIUM, [id number] 06:32:00 Test Item Value Reference Range Interpretation Comments CALCIUM IONIZED (BEAKER) (test 0.92 mmol/L 1.12-1.27 L code = 698) PH, BLOOD (BEAKER) (test code = 7.39 1810) OXYGEN SATURATION, [id number] 06:19:00 Test Item Value Reference Range Interpretation [...] % 0.0-5.0 G=18.9K code = 1414) POCT-GLUCOSE [id number] 05:41:00 Test Item Value Reference Range Interpretation Comments POC-GLUCOSE METER 263 mg/dL 70-110 H : TESTED A T [facility] 6720 (BEAKER) (test code = KV[place], 1538) 68495: Distribution Center Manager/Techni lavinia ID = [id number] for JEFFERSON HENRY [id number] 05:35:00 Test Item Value Reference Range Interpretation Comments PARTIAL THROMBOPLASTIN TIME 36.7 seconds 22.5-36.0 H (BEAKER) (test code = 760) 6 hours after starting heparin infusion and as indicated per sliding scaleBLOOD GAS, [id number] 23:45:00 Test Item Value Reference Range Interpretation [...] (test code = 1819) 60.0 % POCT-GLUCOSE [id number] 23:09:00 Test Item Value Reference Range Interpretation Comments POC-GLUCOSE METER 216 mg/dL 70-110 H : TESTED A T [facility] 6720 (BEAKER) (test code = [facility] [employer] [place], 1538) 34[address]: Distribution Center Manager/Techni lavinia ID = [id number] for MARIA D MONREAL POCT-GLUCOSE [id number] 18:16:00 Test Item Value Reference Range Interpretation Comments POC-GLUCOSE METER 127 mg/dL 70-110 H : TESTED A T [facility] 6720 (BEAKER) (test code = [facility] [place], 1538) 73692: Distribution Center Manager/Techni lavinia ID = [id number] for CINDA WALTER BLOOD GAS, [id number] 18:03:00 Test Item Value Reference Range Interpretation [...] code = 1819) 60.0 % BASIC METABOLIC [id number] 16:48:00 Test Item Value Reference Range Interpretation [...] 697) EGFR (BEAKER) (test 52 mL/min/1.73 ESTIMA DEBBIE GFR IS code = 1092) sq m NOT ACCURATE CREATININE CLEARANCE IN PREDICTING GLOMERULAR FILTRATION RATE . ESTIMATED GFR I S NOT APPLICABLE FOR DIALYSIS PATIEN TS. Distribution Center Manager ID - [id number] 16:44:00 Test Item Value Reference Range Interpretation Comments PARTIAL THROMBOPLASTIN TIME 34.1 seconds 22.5-36.0 (BEAKER) (test code = 760) Prior to initiating [id number] 16:43:00 Test Item Value Reference Range Interpretation Comments FERRITIN (BEAKER) (test code = 913.66 ng/mL 5.00-275.00 H 361) Distribution Center Manager ID - NTPCBC (HEMOGRAM ONLY)2019-09-16 16:36:00 Test [...] H (test code = 1413) BLOOD GAS, [id number] 13:13:00 Test Item Value Reference Range Interpretation [...] (BEAKER) (test code = 1819) 80.0 % [id number] 12:21:00 Test Item Value Reference Range Interpretation Comments PROCALCITONIN (BEAKER) (test code 0.39 ng/mL <0.05 H = 3036) SEPSIS RISK (ng/mL)Low: 0.05-0.50Intermediate: 0.51-2.00High: >=2.01D-DIMER 2019-09-16 12:03:00 Test Item Value Reference Range Interpretation [...] exclusion of thrombosis is within 95-100% range. [id number] 12:03:00 Test Item Value Reference Range Interpretation Comments PHOSPHORUS (BEAKER) (test code = 3.2 mg/dL 2.3-4.7 604) Distribution Center Manager ID - [id number] 12:03:00 Test Item Value Reference Range Interpretation Comments MAGNESIUM (BEAKER) (test code = 1.9 mg/dL 1.6-2.6 627) Distribution Center Manager ID - NTPC-REACTIVE [id number] 12:01:00 Test Item Value Reference Range Interpretation Comments C-REACTIVE PROTEIN (BEAKER) (test 20.44 mg/dL 0.00-0.50 H code = 676) Distribution Center Manager ID - NTPBLOOD GAS, [id number] 11:38:00 Test Item Value Reference Range Interpretation [...] (test 39.6 C code = 1818) FIO2 ([facility]) (test code = 1819) 100.0 % POCT-GLUCOSE [id number] 11:28:00 Test Item Value Reference Range Interpretation Comments POC-GLUCOSE METER 92 mg/dL 70-110 : TESTED A T [facility] ([facility]) (test code = [place], 1538) 02776: Distribution Center Manager/Techni lavinia ID = [id number] for FLAKITA HWANG LACTATE DEHYDROGENASE (LDH)2019-09-16 11:05:00 Test Item Value Reference Range Interpretation Comments LACTATE DEHYDROGENASE 929 U/L 125-220 H Specim en slightly ([facility]) (test code = hemoly zed 635) Distribution Center Manager ID - NTPLEGIONELLA ANTIGEN, [id number] 07:55:00 Test Item Value Reference Range Interpretation Comments L. PNEUMOPHILA Negative - see Negative fo r L. SEROGP 1 UR AG comment pneumophila ([facility]) (test code serogrou p 1 antigen, = 1156) suggesting no r ecent or current infe ction with this serog roup. Legionellosis c annot be ruled out si nce other serogroup s and species may cau se disease. STREP PNEUMONIAE [id number] 07:54:00 Test Item Value Reference Range Interpretation Comments STREP PNEUMONIAE Presumptive negative Presumptive negative ANTIGEN ([facility]) for pneumococcal for pneumococcal (test code = 1615) pneumonia - see pneumonia - see comment commen Presumptive negative for pneumococcal pneumonia, suggesting no current or recent pneumococcal infection. Infection due to S. pneumoniae cannot be ruled out since the antigen present in the sample may be below the detection limit of the test.TROPONIN [id number] 07:26:00 Test Item Value Reference Range Interpretation Comments TROPONIN I ([facility]) (test code = 0.16 ng/mL 0.00-0.03 H [...] failure, acidosis, acute neurological disease, and persistent tachyarrhythmia.Distribution Center Manager ID - MARIZA LCOMPREHENSIVE METABOLIC [id number] 07:19:00 Test Item Value Reference Range Interpretation [...] 347) EGFR (BEAKER) (test 62 mL/min/1.73 ESTIMA DEBBIE GFR IS code = 1092) sq m NOT ACCURATE CREATININE CLEARANCE IN PREDICTING GLOMERULAR FILTRATION RATE . ESTIMATED GFR I S NOT APPLICABLE FOR DIALYSIS PATIEN TS. Distribution Center Manager ID - PIBERNADINE [id number] 07:18:00 Test Item Value Reference Range Interpretation Comments PHOSPHORUS (BEAKER) (test code = 3.8 mg/dL 2.3-4.7 604) Distribution Center Manager ID - MARIZA [id number] 07:18:00 Test Item Value Reference Range Interpretation Comments MAGNESIUM (BEAKER) (test code = 2.0 mg/dL 1.6-2.6 627) Distribution Center Manager ID - CHINOAYA LC-REACTIVE [id number] 07:18:00 Test Item Value Reference Range Interpretation Comments C-REACTIVE PROTEIN (BEAKER) (test 19.31 mg/dL 0.00-0.50 H code = 676) Distribution Center Manager ID - CHINOAYA LBLOOD GAS, [id number] 07:00:00 Test Item Value Reference Range Interpretation [...] (test code = 1819) 100.0 % CALCIUM, [id number] 05:46:00 Test Item Value Reference Range Interpretation Comments CALCIUM IONIZED (BEAKER) (test 0.95 mmol/L 1.12-1.27 L code = 698) PH, BLOOD (BEAKER) (test code = 7.39 1810) CBC W/PLT COUNT & AUTO [id number] 05:38:00 Test Item Value Reference Range Interpretation [...] H PERCENT (BEAKER) (test code = 2801) [id number] 05:27:00 Test Item Value Reference Range Interpretation Comments FERRITIN (BEAKER) (test code = 631.69 ng/mL 5.00-275.00 H 361) Distribution Center Manager ID - PIAYA LTHROMBOELASTOGRAPH (TEG)2019-09-16 02:43:00 Test [...] 0.0-5.0 G=15.8k code = 1414) BLOOD GAS, [id number] 01:56:00 Test Item Value Reference Range Interpretation [...] 100.0 % CBC W/PLT COUNT & AUTO [id number] 01:34:00 Test Item Value Reference Range Interpretation [...] CONCENTRATION Adequate (CELLAVISION)(BEAKER) (test code = 3438) Distribution Center Manager GLORIA Cohen Yogi comments: Slide comments:HEPATITIS B PANEL 2019-09-16 00:51:00 Test Item Value Reference Range Interpretation Comments HEPATITIS B CORE TOTAL ANTIBODY Nonreactive Nonreactive (BEAKER) (test code = 497) HEPATITIS B SURFACE ANTIBODY < mIU/mL <8.0 (BEAKER) (test code = 647) HEPATITIS B SURFACE ANTIGEN (2) Nonreactive Nonreactive (BEAKER) (test code = 2585) Distribution Center Manager ID - MARIZA LHEPATITIS C [id number] 00:27:00 Test Item Value Reference Range Interpretation Comments HEPATITIS C ANTIBODY (BEAKER) Nonreactive Nonreactive (test code = 367) Distribution Center Manager ID Osmani WHITNEYIV-1 ANTIGEN WITH HIV-1/2 [id number] 00:27:00 Test Item Value Reference Range Interpretation Comments HIV-1 ANTIGEN WITH HIV 1\\T\\2 Nonreactive Nonreactive ANTIBODY (2) (BEAKER) (test code = 2586) Distribution Center Manager ID - MARIZA LTROPONIN [id number] 00:18:00 Test Item Value Reference Range Interpretation Comments TROPONIN I (BEAKER) (test code = 0.19 ng/mL 0.00-0.03 H [...] failure, acidosis, acute neurological disease, and persistent tachyarrhythmia.Distribution Center Manager ID - MARIZA LLACTATE DEHYDROGENASE (LDH)2019-09-16 00:18:00 Test Item Value Reference Range Interpretation Comments LACTATE DEHYDROGENASE 979 U/L 125-220 H Specim en slightly (BEAKER) (test code = hemoly zed 635) Distribution Center Manager ID Osmani DAWKINS LCREATINE KINASE (CK)2019-09-16 00:07:00 Test Item Value Reference Range Interpretation Comments CREATINE KINASE TOTAL (BEAKER) (test 1175 U/L 29-200 H code = 380) Distribution Center Manager ID - MARIZA LC-REACTIVE [id number] 00:07:00 Test Item Value Reference Range Interpretation Comments C-REACTIVE PROTEIN (BEAKER) (test 18.83 mg/dL 0.00-0.50 H code = 676) Distribution Center Manager ID - MARIZA LLACTIC ACID, [id number] 00:02:00 Test Item Value Reference Range Interpretation Comments LACTATE BLOOD 1.4 mmol/L 0.5-2.2 Specimen sligh tly ARTERIAL (2) (BEAKER) hemoly zed (test code = 2874) Distribution Center Manager ID - MARIZA [id number] 00:01:00 Test Item Value Reference Range Interpretation Comments D-DIMER QUANTITATIVE (BEAKER) 4.29 MG/L FEU <0.50 H (test code [...] of thrombosis is within 95-100% range.BLOOD GAS, [id number] 23:59:00 Test Item Value Reference Range Interpretation [...] code = 1819) 100.0 % BLOOD GAS, [id number] 23:59:00 Test Item Value Reference Range Interpretation [...] (BEAKER) (test code = 1819) 100.0 % [id number] 23:52:00 Test Item Value Reference Range Interpretation Comments PARTIAL THROMBOPLASTIN TIME 28.0 seconds 22.5-36.0 (BEAKER) (test code = 760) PROTHROMBIN [id number] 23:51:00 Test Item Value Reference Range Interpretation Comments PROTIME (BEAKER) (test code = 15.0 seconds 11.9-14.2 H 759) INR (BEAKER) (test code = 370) 1.2 <=5.9 Effective 10/21/2018: PT Reference Range ChangeNew: 11.9-14.2 Previous: 11.7- 14.7RECOMMENDED COUMADIN/WARFARIN INR THERAPY RANGESSTANDARD DOSE: 2.0-3.0 Includes: PROPHYLAXIS for venous thrombosis, systemic embolization; TREATMENT for venous thrombosis and/or pulmonary embolus.HIGH RISK: Target INR is 2.5-3.5 for patients wiht mechanical heart valves.[id number] 23:51:00 Test Item Value Reference Range Interpretation Comments FIBRINOGEN LEVEL (BEAKER) (test 668 mg/dl 225-434 H code = 658) RAD, CHEST, 1 VIEW, NON [id number] 23:46:00Reason for exam:->CVC line placementShould this be performed at the bedside?->YesFINAL REPORT RAD, CHEST, 1 VIEW, NON DEPT, RAD, ABDOMEN/KUB, 1 VIEW AP INDICATIO N: CVC line placement COMPARISON: Chest x-ray September 15, 2019 FINDINGS: Portable frontal view of the chest. Single frontal view of the abdomen IMPRESSION: Support Lines: Endotracheal tube terminates 4 cm above the dai. Enteric tube tip overlies the gastric body. Lungs and pleura: Airspace opacities are improved suggesting reduce pulmonary edema or atelectasis. No large pleural effusion. No pneumothorax.Heart and mediastinum: Stable contours. Abdominal findings: Gaseous distention of bowel loops isnonspecific without convincing evidence of bowel obstruction. Aortoiliac vascular stent graft noted.Free air assessment is suboptimally characterized on supine imaging. No pneumatosis or portal venous gas. Unremarkable osseous structures. Signed: Brett Goldberg MDReport Verified Date/Time: 09/15/2019 23:46:51 RAD, ABDOMEN/KUB, 1 VIEW [id number] 23:46:00Reason for exam:->abdominal distentionShould this be performed at the bedside?->YesFINAL REPORT RAD, CHEST, 1 VIEW, NON DEPT, RAD, ABDOMEN/KUB, 1 VIEW AP INDICATION: CVC line placement COMPARISON: Chest x- ray September 15, 2019 FINDINGS: Portable frontal view of the chest. Single frontal view of the abdomen IMPRESSION: Support Lines: Endotracheal tube terminates 4 cm above the dai. Enteric tube tip overlies the gastric body. Lungs and pleura: Airspace opacities are improved suggesting reduce pulmonary edema or atelectasis. No large pleural effusion. No pneumothorax.Heart and mediastinum: Stable contours. Abdominal findings: Gaseous distention of bowel loops is nonspecific without convincing evidence of bowel obstruction. Aortoiliac vascular stent graft noted.Free air assessment is suboptimally characterized on supine imaging. No pneumatosis or portal venousgas. Unremarkable osseous structures. Signed: Brett Goldberg MDReport Verified Date/Time: 09/15/2019 23:46:51 RESPIRATORY PANEL [id number] 21:29:00 Test Item Value Reference Range Interpretation [...] decisions. This sample was tested at the [facility] using the VTEXArray Respiratory Panel. It is FDA cleared and has been verified and approved by the [facility] for clinical use on nasopharyngeal swab specimens.The performance of the FilmArrayRP has not been established in individuals who received influenza vaccine. Recent administration of a nasal influenza vaccine may cause false positive results for Influenza A and/orInfluenza B.RAD, CHEST, 1 VIEW, NON [id number] 20:14:00Reason for exam:->FEVERReason for exam:->GENERALIZED WEAKNESS, NOT ASSOCIATED WITH EXTREMITIESShould this be performed at the bedside?->YesFINAL REPORT RAD, CHEST, 1 VIEW, NON DEPT INDICATION: FEVERGENERALIZED WEAKNESS, NOT ASSOCIATED WITH EXTREMITIES COMPARISON: Prior day's exam FINDINGS: Portable frontal view of thechest. IMPRESSION: Support Lines: Interval intubation. ET tube tip is 3 cm superior to the dai. Lungs and pleura: Bilateral airspace disease is slightly increased in the interim suggestive of worsening edema, worsening infection and/or increased conspicuity of diffuse metastatic disease (if primarymalignancy is present). No pneumothorax.Heart and mediastinum: Stable contours. Additional findings:None. Signed: Joi Pineda MDRepsaint john[facility] Verified Date/Time: 09/15/2019 20:14:26 Reading Location: [address] Neuro Reading Room -COV2/RT-PCR ([facility])2019-09-15 18:58:00 Test Item Value Reference Range Interpretation Comments SARS-COV2/RT-PCR (test code = Detected Not Detected, Negative A A [id number]) SARS-COV-2 PERFORMING LAB [facility] (test code = 7793896) Results are for the detection of SARS-CoV-2 [...] copies/mL.This SARS CoV-2 test is a rapid, rxva-aporXH-PAT test intended for the qualitative detection of [...] 564(g) of the Act.Fact Sheet for Healthcare Providers:https://www.[employer]/ Documents/Xpert%20Xpress%20SARS%20CoV-2/Fact%20Sheets/302-3802%67XZHW-WQI-6%20HE ALTHCARE%20PROVIDERS%20FACT%20SHEET.pdfFact Sheet for Healthcare Patients:https://www.[employer]/Documents/Xpert%20Xpress %20SARS%20CoV-2/Fact%20Sheets/3023801%45ABUQ-LLX-6%20PATIENT%20FACT%20SHEET.pdf Performing Laboratory:[facility], [place] [id number] 18:13:00 Test Item Value Reference Range Interpretation Comments PROCALCITONIN (BEAKER) (test code 0.19 ng/mL <0.05 H = 3036) SEPSIS RISK (ng/mL)Low: 0.05-0.50Intermediate: 0.51-2.00High: >=2.01TSH/FREE T4 IF [id number] 18:05:00 Test Item Value Reference Range Interpretation Comments THYROID STIMULATING HORMONE 0.641 uIU/mL 0.350-4.940 (BEAKER) (test code = 772) Distribution Center Manager ID - HANSA CCBC W/PLT COUNT & AUTO [id number] 17:50:00 Test Item Value Reference Range Interpretation [...] CONCENTRATION Adequate (CELLAVISION)(BEAKER) (test code = 3438) Distribution Center Manager ID - jaymie Prado comments: Slide comments:RAD, CHEST, 1 VIEW, NON [id number] 17:49:00Reason for exam:->FEVERReason for exam:- >GENERALIZED WEAKNESS, NOT ASSOCIATED WITH EXTREMITIESFINAL REPORT TECHNIQUE: Frontal view of the chest. INDICATION: 74-year-old man w ith fever and generalized weakness. COMPARISON: Chest radiograph 11/09/2018. FINDINGS: LINES/TUBES: None. LUNGS: Central pulmonary venous congestion. Patchy bilateral airspace opacities. PLEURA: No pneumothorax or significant pleural effusion. HEART AND MEDIASTINUM: Prominent cardiac silhouette. Atherosclerotic calcifications in the thoracic aorta. SOFT TISSUES AND BONES: Unremarkable. IMPRESSION:Central pulmonary venous congestion with bilateral airspace opacities. Differential considerations include multifocal pneumonia and pulmonary edema. Signed: Christiano Mejia [facility] CENTEReport Verified Date/Time: 09/15/2019 17:49:30 Reading Location: [address] Radiology Reading Room B-TYPE NATRIURETIC FACTOR (BNP)2019-09-15 17:45:00 Test Item Value Reference Range Interpretation Comments B-TYPE NATRIURETIC PEPTIDE (BEAKER) 514 pg/mL 0-100 H (test code = 700) Distribution Center Manager ID - HANSA CTROPONIN [id number] 17:45:00 Test Item Value Reference Range Interpretation [...] failure, acidosis, acute neurological disease, and persistent tachyarrhythmia.Distribution Center Manager ID - HANSA [id number] 17:37:00 Test Item Value Reference Range Interpretation Comments PHOSPHORUS (BEAKER) (test code = 2.9 mg/dL 2.3-4.7 604) Distribution Center Manager ID - HANSA [id number] 17:37:00 Test Item Value Reference Range Interpretation Comments MAGNESIUM (BEAKER) (test code = 2.0 mg/dL 1.6-2.6 627) Distribution Center Manager ID - HANSA CBASIC METABOLIC [id number] 17:37:00 Test Item Value Reference Range Interpretation [...] 697) EGFR (BEAKER) (test 70 mL/min/1.73 ESTIMA DEBBIE GFR IS code = 1092) sq m NOT ACCURATE CREATININE CLEARANCE IN PREDICTING GLOMERULAR FILTRATION RATE . ESTIMATED GFR I S NOT APPLICABLE FOR DIALYSIS PATIEN TS. Distribution Center Manager ID - HANSA CLACTIC ACID, [id number] 17:25:00 Test Item Value Reference Range Interpretation Comments LACTATE BLOOD VENOUS 2.20 mmol/L 0.50-2.20 Specime n slightly (2) (BEAKER) (test hemolyzed code = 2872) Distribution Center Manager ID - DBBLOOD GAS, [id number] 17:22:00 Test Item Value Reference Range Interpretation [...] = 1819) 100.0 % RAD, CHEST, 2 [id number] 10:40:00Reason for Exam:->E18Yrvmnl for Exam:- >J44.9Reason for Exam:->E78.5Reason for Exam:->I71.4Reason for Exam:- >E11.65Reason for Exam:->Z79.899Reason for Exam:->R09.89FINAL REPORT Chest, 2 views. Clinical History: I10J44.9E78.5I71.4E11.65Z79.899R09.89 Comparison Study: October 13, 2017 Findings: The heart and lungs are within normal limits. The pleural spaces are clear. Degenerative changes are seen. Impression: No active cardiopulmonary disease. Si gned: Domingo Jeffries Verified Date/Time: 11/09/2018 10:40:00 Reading Location: [facility] Radiology Reading Room RAD, CHEST, 2 [id number] 13:57:00 Reason for Exam:->Essential (primary) hypertension [I10]FINAL REPORT INDICATION: Essential (primary) hypertension [I10] COMPARISON: 2016 TECHNIQUE: Chest radiograph, two views, PA and lateral. FINDINGS / IMPRESSION:Lung volumes are normal and there is no evidence of pneumonia or pulmonary edema. No pneumothorax or pleural effusion is demonstrated. There is mild enlargement cardiac silhouette. Thoracic vertebral mild degenerative changes noted. Signed: Keyona Green Verified Date/Time: 10/13/2017 13:57:52 ReadingLocation: [facility] Radiology Reading Room
[2022-01-25 15:08] LABS: Absolute Lymphocytes (CBC) 0.9 K/uL (0.7-4.9); Hematocrit 33.7 % (39.6-49.0); Lymphocytes % 6.2 % (15.3-44.8); MCV 90.7 fL (80-100); MPV 6.8 fL (7.6-11.3); RBC Red Blood Cell Count 3.72 M/uL (4.33-5.43)
[2022-01-25] MEDS ORDERED: NA CHLORIDE 0.9% 500 ML ONE ×2 (15:12→16:47)
[2022-01-25 15:14] LABS: Protime INR 1.38
[2022-01-25 15:37] LABS: Albumin 1.6 g/dL (3.4-5.0); Bilirubin Direct 2.4 mg/dL (0-0.2); Magnesium 2.2 mg/dL (1.8-2.4); Potassium 4.7 mmol/L (3.5-5.1)
[2022-01-25 16:20] LABS: Urine Blood 3+ (Negative); Urine Glucose Negative (Negative); Urine Protein 2+ (Negative); Urine Specific Gravity >=1.030 (1.005-1.030)
[2022-01-25 16:48] LABS: Urine Bacteria 20-50 /HPF (<20)
--- NOTE | 2022-01-25 17:03 | RAD REPORT ---
EXAM DESCRIPTION: RAD - Chest Single View - 01/25/2022 4:51 pm CLINICAL HISTORY: DYSPNEA Chest pain. COMPARISON: Chest Single View dated 06/09/2021; Chest Single View dated 06/08/2021; Chest Single View dated 06/07/2021; Chest Single View dated 06/04/2021 FINDINGS: Portable technique limits examination quality. [place] opacity in the right lung bases likely subsegmental atelectasis. The left lung is grossly carroll r. The heart is mildly enlarged in size. No displaced fractures.
--- NOTE | 2022-01-25 17:19 | ER ---
Nurse's Notes [facility] Name: Marbin Freeman Age: 76 yrs Sex: Male : 1945 Arrival Date: 01/25/2022 Time: 13:37 Bed 15 Private MD: Diagnosis: Acute kidney failure, unspecified;Muscle weakness (generalized);Acidosis;Altered mental status, unspecified Presentation: 01/25 13:30 Chief complaint: EMS states: Patient is from home call came in for a fall last night jg9 with an left elbow injury not getting better and overall general malaise for months-worsening, decreased appetite. Care prior to arrival: None. Mechanism of Injury: Fall from standing position. Trauma event details: Injury occurred: at home. 13:30 Acuity: ERIKA 3 jg9 13:30 Method Of Arrival: EMS 9 13:45 Coronavirus screen: Vaccine status: Patient reports receiving the 2nd dose of the covid jg9 vaccine. Ebola Screen: Patient negative for fever greater than or equal to 101.5 degrees Fahrenheit, and additional compatible Ebola Virus Disease symptoms Patient denies exposure to infectious person. Patient denies travel to an Ebola-affected area in the 21 days before illness onset. Initial Sepsis Screen: Does the patient meet any 2 criteria? No. Patient's initial sepsis screen is negative. Does the patient have a suspected source of infection? No. Patient's initial sepsis screen is negative. Risk Assessment: Do you want to hurt yourself or someone else? Patient reports no desire to harm self or others. Onset of symptoms is unknown. Trauma Activation: Not Applicable Physician: ED Physician; Name: ; Notified At: ; Arrived At: Physician: General Surgeon; Name: ; Notified At: ; Arrived At: Physician: Radiology; Name: ; Notified At: ; Arrived At: Physician: Respiratory; Name: ; Notified At: ; Arrived At: Physician: Lab; Name: ; Notified At: ; Arrived At: Historical: - Allergies: 13:46 No Known Allergies; jg9 - Home Meds: 18:23 acetaminophen 500 mg Oral tab 2 tabs daily [Active]; amiodarone 200 mg Oral tab 1 tab 2 jg9 times per day [Active]; amlodipine 5 mg tab 2 tabs once daily [Active]; losartan 50 mg Oral tab 1 tab 2 times per day [Active]; metformin 1,000 mg Oral tr24 1 tab 2 times per day [Active]; metoprolol tartrate 50 mg Oral tab 1 tab 2 times per day [Active]; rosuvastatin 10 mg Oral tab 1 tab after meals and before bedtime [Active]; - PMHx: 13:46 Hypertensive disorder; Type 2 diabetes mellitus; CAD; jg9 - Immunization history: Last tetanus immunization: unknown. - Social history:: Smoking status: Patient/guardian denies using tobacco, the patient reports quitting approximately 40 years ago. - Family history:: not pertinent. - Hospitalizations: : No recent hospitalization is reported. Screenin:44 Abuse screen: Denies threats or abuse. Denies injuries from another. Tuberculosis jg9 screening: No symptoms or risk factors identified. 13:47 Nutritional screening: decreased appetite with decreased oral intake for "a while". jg9 Fall Risk Fall in past 12 months (25 points). Primary Survey: 13:30 NO uncontrolled hemorrhage observed. A: The client is awake and alert. The airway is jg9 patent. Breathing/Chest: Spontaneous respiratory effort, equal unlabored respirations, breath sounds clear bilaterally, regular pattern, symmetrical chest rise and fall. Circulation: No external hemorrhage present. Regular and strong central pulse, skin warm/dry/normal color. Disability Client is alert. Exposure/Environment: A warming method has been applied: A warm blanket has been provided to the patient. 13:45 Reassessment Breathing:. jg9 Secondary Survey: 15:24 HEENT: No deficits noted. Gastrointestinal: Abdomen is soft, Bowel sounds present in jg9 all quadrants. Palpation No deficit noted : No deficits noted. Musculoskeletal: Reports weakness in right arm, left arm, right leg and left leg. Injury Description: Abrasion sustained to left elbow. Assessment: 13:43 General: Appears uncomfortable, Behavior is calm, cooperative. Pain: Complains of pain jg9 in left elbow. 13:43 Neuro: Reports weakness generalized and ongoing for sometime. EENT: No deficits noted. jg9 Cardiovascular: No deficits noted. Respiratory: No deficits noted. GI: Abdomen is round Bowel sounds present X 4 quads. Abd is soft and non tender X 4 quads. : No deficits noted. Derm: Skin is jaundiced. Musculoskeletal: Reports weakness in right arm, left arm, right leg and left leg. 14:00 Reassessment: No changes from previously documented assessment. Patient and/or family jg9 updated on plan of care and expected duration. Pain level reassessed. Patient is alert, oriented x 3, equal unlabored respirations, skin warm/dry/pink. 15:00 Reassessment: Patient and/or family updated on plan of care and expected duration. Pain jg9 level reassessed. Patient is alert, oriented x 3, equal unlabored respirations, skin warm/dry/pink. Patient adjusted in bed. 16:00 Reassessment: Patient and/or family updated on plan of care and expected duration. Pain jg9 level reassessed. Patient is alert, oriented x 3, equal unlabored respirations, skin warm/dry/pink. 17:00 Reassessment: No changes from previously documented assessment. Patient and/or family jg9 updated on plan of care and expected duration. Pain level reassessed. Patient is alert, oriented x 3, equal unlabored respirations, skin warm/dry/pink. 18:00 Reassessment: Patient and/or family updated on plan of care and expected duration. Pain jg9 level reassessed. Patient is alert, oriented x 3, equal unlabored respirations, skin warm/dry/pink. 19:00 Reassessment: Patient appears in no apparent distress at this time. Patient and/or jb4 family updated on plan of care and expected duration. Pain level reassessed. Patient is alert, oriented x 3, equal unlabored respirations, skin warm/dry/pink. Vital Signs: 13:44 BP 107 / 72; Pulse 58; Resp 18 S; Temp 97.0(TE); Pulse Ox 93% on R/A; Weight 99.34 kg; jg9 Height 6 ft. 0 in. (182.88 cm) (R); Pain 5/10; 14:00 BP 108 / 66; Pulse 54; Resp 25 S; Pulse Ox 96% on R/A; jg9 14:30 BP 102 / 54; Pulse 53; Resp 21 S; Pulse Ox 9% on R/A; jg9 14:45 BP 90 / 47; Pulse 55; Resp 23 S; Pulse Ox 96% ; jg9 15:00 BP 92 / 49; Pulse 54; Resp 25 S; Pulse Ox 96% on R/A; jg9 15:15 BP 95 / 51; Pulse 51; Resp 22 S; Pulse Ox 96% on R/A; jg9 16:00 BP 95 / 50; Pulse 51; Resp 21 S; Pulse Ox 95% on R/A; jg9 16:30 BP 118 / 64; Pulse 54; Resp 22 S; Pulse Ox 97% on R/A; jg9 17:15 BP 112 / 70; Pulse 49; Resp 22 S; Pulse Ox 94% on R/A; jg9 17:45 BP 101 / 63; Pulse 50; Resp 20 S; Pulse Ox 94% ; jg9 13:44 Body Mass Index 29.70 (99.34 kg, 182.88 cm) jg9 [place] Coma Score: 13:44 Eye Response: spontaneous(4). Verbal Response: oriented(5). Motor Response: obeys jg9 commands(6). Total: 15. Trauma Score (Adult): 13:44 Eye Response: spontaneous(1); Verbal Response: oriented(1); Motor Response: obeys jg9 commands(2); Systolic BP: > 89 mm Hg(4); Respiratory Rate: 10 to 29 per min(4); Yisel Score: 15; Trauma Score: 12 ED Course: 11:40 Inserted saline lock: 22 gauge in right antecubital area, using aseptic technique. jg9 Blood collected. 13:37 Patient arrived in ED. eb 13:40 La Ribeiro, RN is Primary Nurse. jg9 13:43 Triage completed. jg9 13:43 Fredy Zurita MD is Attending Physician. rn 13:45 Arm band placed on right wrist. jg9 13:47 Patient has correct armband on for positive identification. Bed in low position. Call jg9 light in reach. Side rails up X 1. 13:47 Patient maintains SpO2 saturation greater than 95% on room air. Thermoregulation: warm jg9 blanket given to patient. 14:57 EKG done, by ED staff, reviewed by Fredy Zurita MD. em1 16:53 XRAY Chest (1 view) In Process Unspecified. EDMS 17:18 Adrián Pool MD is Hospitalizing Provider. rn 19:00 No provider procedures requiring assistance completed. Patient admitted, IV remains in jb4 place. 01/26 01:57 Primary Nurse role handed off by La Ribeiro, MARCO 04:21 Notified ED physician of a critical lab result(s). creat 5.09 calcium 6.9. as6 Administered Medications: 01/25 15:04 Drug: NS 0.9% 500 ml Route: IV; Rate: bolus; Site: right antecubital; jg9 16:22 Follow up: IV Status: Completed infusion; IV Intake: 500ml jg9 16:48 Drug: NS 0.9% 500 ml Route: IV; Rate: bolus; Site: right antecubital; jg9 18:13 Follow up: IV Status: Completed infusion; IV Intake: 500ml jg9 Medication: 19:00 VIS not applicable for this client. jb4 Intake: 16:22 IV: 500ml; Total: 500ml. jg9 18:13 IV: 500ml; Total: 1000ml. jg9 18:23 PO: 0ml; IV: 1000ml; Total: 2000ml. jg9 Output: 18:23 Urine: 150ml (Voided); Total: 150ml. jg9 Outcome: 17:18 Decision to Hospitalize by Provider. rn 18:23 Patient's length of stay in the Emergency Department was greater than 2 hours. jg9 admittedPatient's length of stay extended due to 19:00 Admitted to ER Hold. Please see [facility] for further documentation. jb4 19:00 Condition: stable 19:00 Discharge instructions given to patient, family, Instructed on the need for admit, Demonstrated understanding of instructions. 01/26 05:26 Patient left the ED. jb4 Signatures: Dispatcher [employer] EDFredy Cabezas MD MD rn Martinez, Eric em1 Toni Moore RN RN jb4 Leeann Calixto Wendy wm Slawson, Ashby, RN RN as6 La Ribeiro, MARCO RN jg9 Corrections: (The following items were deleted from the chart) 01/25 13:47 13:46 PMHx: Coronary atherosclerosis; jg9 jg9
--- NOTE | 2022-01-25 17:19 | EDPHYS ---
Physician Documentation [facility] Name: Marbin Freeman Age: 76 yrs Sex: Male : 1945 Arrival Date: 01/25/2022 Time: 13:37 Bed 15 Private MD: ED Physician Fredy Zurita HPI: 01/25 13:46 This 76 yrs old Male presents to ER via EMS with complaints of Weakness. rn 13:47 PT and family reports generalized weakness over last couple of weeks, no fever, no rn appetite, admitted recently for acute kidney failure and told elevated liver enzymes. Reports a few falls from standing recently, with soft tissue injuries to arms and legs but nothing feels broken. . Onset: The symptoms/episode began/occurred 1 week(s) ago. Severity of symptoms: At their worst the symptoms were mild in the emergency department the symptoms are unchanged. The patient has not experienced similar symptoms in the past. The patient has been recently seen by a physician:. Historical: - Allergies: 13:46 No Known Allergies; jg9 - Home Meds: 18:23 acetaminophen 500 mg Oral tab 2 tabs daily [Active]; amiodarone 200 mg Oral tab 1 tab 2 jg9 times per day [Active]; amlodipine 5 mg tab 2 tabs once daily [Active]; losartan 50 mg Oral tab 1 tab 2 times per day [Active]; metformin 1,000 mg Oral tr24 1 tab 2 times per day [Active]; metoprolol tartrate 50 mg Oral tab 1 tab 2 times per day [Active]; rosuvastatin 10 mg Oral tab 1 tab after meals and before bedtime [Active]; - PMHx: 13:46 Hypertensive disorder; Type 2 diabetes mellitus; CAD; jg9 - Immunization history: Last tetanus immunization: unknown. - Social history:: Smoking status: Patient/guardian denies using tobacco, the patient reports quitting approximately 40 years ago. - Family history:: not pertinent. - Hospitalizations: : No recent hospitalization is reported. ROS: 13:47 Constitutional: Negative for fever, chills Eyes: Negative for injury, pain, redness, rn and discharge, Neck: Negative for injury, pain, and swelling, Cardiovascular: Negative for chest pain, palpitations, and edema, Respiratory: Negative for shortness of breath, cough, wheezing, and pleuritic chest pain, Abdomen/GI: Negative for abdominal pain, nausea, vomiting, diarrhea, and constipation, Back: Negative for injury and pain, MS/Extremity: Negative for deformity Skin: Negative for injury, rash, and discoloration, Neuro: Negative for headache, numbness, tingling, and seizure. Exam: 13:47 Constitutional: Jaundiced patient, no acute distress Head/Face: Normocephalic, rn atraumatic. Eyes: + scleral icterus ENT: dry MM Cardiovascular: Bradycardic, regular. No pulse deficits. Respiratory: No increased work of breathing, no retractions or nasal flaring. Abdomen/GI: Soft, non-tender Skin: Warm, dry MS/ Extremity: Pulses equal, no cyanosis. Neuro: Awake and alert, GCS 15, oriented to person, place, time, and situation. Cranial nerves II-XII grossly intact. Motor strength 4/5 in all extremities. Sensory grossly intact. 15:49 ECG was reviewed by the Attending Physician. rn Vital Signs: 13:44 BP 107 / 72; Pulse 58; Resp 18 S; Temp 97.0(TE); Pulse Ox 93% on R/A; Weight 99.34 kg; jg9 Height 6 ft. 0 in. (182.88 cm) (R); Pain 5/10; 14:00 BP 108 / 66; Pulse 54; Resp 25 S; Pulse Ox 96% on R/A; jg9 14:30 BP 102 / 54; Pulse 53; Resp 21 S; Pulse Ox 9% on R/A; jg9 14:45 BP 90 / 47; Pulse 55; Resp 23 S; Pulse Ox 96% ; jg9 15:00 BP 92 / 49; Pulse 54; Resp 25 S; Pulse Ox 96% on R/A; jg9 15:15 BP 95 / 51; Pulse 51; Resp 22 S; Pulse Ox 96% on R/A; jg9 16:00 BP 95 / 50; Pulse 51; Resp 21 S; Pulse Ox 95% on R/A; jg9 16:30 BP 118 / 64; Pulse 54; Resp 22 S; Pulse Ox 97% on R/A; jg9 17:15 BP 112 / 70; Pulse 49; Resp 22 S; Pulse Ox 94% on R/A; jg9 17:45 BP 101 / 63; Pulse 50; Resp 20 S; Pulse Ox 94% ; jg9 13:44 Body Mass Index 29.70 (99.34 kg, 182.88 cm) jg9 [place] Coma Score: 13:44 Eye Response: spontaneous(4). Verbal Response: oriented(5). Motor Response: obeys jg9 commands(6). Total: 15. Trauma Score (Adult): 13:44 Eye Response: spontaneous(1); Verbal Response: oriented(1); Motor Response: obeys jg9 commands(2); Systolic BP: > 89 mm Hg(4); Respiratory Rate: 10 to 29 per min(4); [place] Score: 15; Trauma Score: 12 MDM: 13:43 Patient medically screened. rn 17:17 Differential Diagnosis kidney failure, liver failure, hepatorenal syndrome, rn dehydration, sepsis, dehydration. Data reviewed: vital signs, nurses notes, lab test result(s), radiologic studies, plain films, and as a result, I will admit patient. 17:17 Response to treatment: the patient's symptoms have mildly improved after treatment. 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 ED course: Pt currently without source of infection, abnormal findings right now consistent with renal failure and effects thereof. . 01/25 13:44 Order name: CBC with Diff; Complete Time: 16:19 rn 01/25 13:44 Order name: Basic Metabolic Panel; Complete Time: 16:19 rn 01/25 13:44 Order name: Protime (+inr); Complete Time: 16:19 rn 01/25 13:44 Order name: Urine Microscopic Only; Complete Time: 17:15 rn 01/25 13:44 Order name: LFT's; Complete Time: 16:19 rn 01/25 13:44 Order name: Lipase; Complete Time: 16:19 rn 01/25 13:44 Order name: BNP; Complete Time: 16:19 rn 01/25 13:44 Order name: AMMONIA; Complete Time: 16:19 rn 01/25 13:44 Order name: Magnesium; Complete Time: 16:19 rn 01/25 16:20 Order name: Urine Dipstick-Ancillary; Complete Time: 16:21 EDID 01/25 16:50 Order name: Urine Culture EDID 01/25 16:55 Order name: SARS RAPID; Complete Time: 17:47 jg9 01/25 18:51 Order name: Hemoglobin A1c EDID 01/25 18:51 Order name: Lipid Profile EDID 01/25 13:44 Order name: EKG; Complete Time: 13:45 rn 01/25 16:22 Order name: XRAY Chest (1 view); Complete Time: 17:15 rn 01/25 18:51 Order name: CONS Physician Consult EDID 01/25 18:51 Order name: CBC with Automated Diff EDMS 01/25 18:51 Order name: CBC with Automated Diff EDMS 01/25 18:51 Order name: CBC with Automated Diff EDMS 01/25 18:51 Order name: CBC with Automated Diff EDMS 01/25 18:51 Order name: Comprehensive Metabolic Panel EDID 01/25 18:51 Order name: Comprehensive Metabolic Panel EDID 01/25 18:51 Order name: Comprehensive Metabolic Panel EDID 01/25 18:51 Order name: Comprehensive Metabolic Panel EDID 01/25 21:56 Order name: Glucose, Ancillary Testing EDID 01/26 04:20 Order name: Uric Acid EDID 01/26 04:20 Order name: Phosphorus EDID 01/25 13:44 Order name: IV Start; Complete Time: 15:00 rn 01/25 13:44 Order name: Urine Dipstick-Ancillary (obtain specimen); Complete Time: 16:20 rn 01/25 13:44 Order name: Cardiac monitoring; Complete Time: 13:48 rn 01/25 13:44 Order name: EKG - Nurse/Tech; Complete Time: 14:47 rn 01/25 18:51 Order name: Dietitian Consult EDID 01/25 18:51 Order name: Renal EDMS EC:49 Rate is 54 beats/min. Rhythm is regular. QRS [place] is Normal. [place] interval is prolonged rn at 276 msec. QRS interval is normal. QT interval is normal. No Q waves. T waves are Normal. No ST changes noted. Clinical impression: Sinus bradycardia. Interpreted by me. Reviewed by me. Administered Medications: 15:04 Drug: NS 0.9% 500 ml Route: IV; Rate: bolus; Site: right antecubital; jg9 16:22 Follow up: IV Status: Completed infusion; IV Intake: 500ml jg9 16:48 Drug: NS 0.9% 500 ml Route: IV; Rate: bolus; Site: right antecubital; jg9 18:13 Follow up: IV Status: Completed infusion; IV Intake: 500ml jg9 Disposition Summary: 01/25/22 17:18 Hospitalization Ordered Hospitalization Status: Inpatient Admission rn Provider: Adrián Pool rn Condition: Stable rn Problem: new rn Symptoms: have improved rn Bed/Room Type: Standard rn Location: Telemetry/MedSurg (Inpatient)(01/26/22 04:23) cg Room Assignment: [facility](01/26/22 04:23) cg Diagnosis - Acute kidney failure, unspecified rn - Muscle weakness (generalized) rn - Acidosis rn - Altered mental status, unspecified rn Forms: - Medication Reconciliation Form rn - SBAR form rn Signatures: Dispatcher [employer] EDMS Fredy Zurita MD MD rn Garcia, Cindy, RN RN cg Gilmore, Jennifer RN MARCO jg9 Corrections: (The following items were deleted from the chart) 13:47 13:46 PMHx: Coronary atherosclerosis; jg9 jg9 15:15 13:44 O2 Sat Monitoring ordered. rn jg9 01/26 00:10 01/25 17:18 Telemetry/MedSurg (Inpatient) rn cg 01/26 00:10 01/25 17:18 rn cg 01/26 03:44 00:10 ERHOLD- cg cg 04:23 00:10 [facility] ER HOLD cg cg 04:23 03:44 cg cg
[2022-01-25 17:31] LABS: SARS-CoV-2 Antigen Rapid Res Negative (Negative)
[2022-01-25] MEDS ORDERED: ACETAMINOPHEN 500 MG TAB PO PRN (18:46)
[2022-01-25] MEDS ORDERED: GLUCAGON 1 MG/VIAL IM PRN (18:46)
[2022-01-25] MEDS ORDERED: HYDRALAZINE HCL 20 MG/ML VIAL IV PRN (18:46)
[2022-01-25] MEDS ORDERED: D50W 25 GM/50 ML SYRINGE IV PRN (18:46)
--- NOTE | 2022-01-25 18:56 | P.HP ---
Certification for Inpatient Patient admitted to: Inpatient With expected LOS: >2 Midnights Patient will require the following post-hospital care: None Practitioner: I am a practitioner with admitting privileges, knowledge of patient current condition, hospital course, and medical plan of care. Services: Services provided to patient in accordance with Admission requirements found in Title 42 Section 412.3 of the Code of Federal Regulations Patient History Date of Service: 01/25/22 Primary Care Provider: unknown Reason for admission: acute on chronic renal failure History of Present Illness: Patient is a pleasant gentleman with a past medical of ckd stage 3, htn and dm2. The patient has been feeling weak, tired and poor appetite. Which prompted him to come to the hosptial. He was found to have a creatine of 5.3. Which would explain his symptoms. He is not a good historian. Not sure which meds he takes. Normally follows with Dr. Ward. Allergies No Known Allergies Allergy (Unverified 06/04/21 12:42) Home Medications: Amiodarone HCl [Cordarone*] 200 mg PO BID 06/05/21 Amlodipine [Norvasc*] 10 mg PO DAILY 06/05/21 Losartan Potassium 50 mg PO BID 06/05/21 Metformin HCl 1,000 mg PO BID 06/05/21 Metoprolol Tartrate 50 mg PO BID 06/05/21 Rosuvastatin [Crestor*] 10 mg PO BEDTIME 06/05/21 Albuterol Neb [Proventil 0.083% Neb Soln] 2.5 mg NEB Q6HP PRN amp 06/09/21 Apixaban [Eliquis *] 2.5 mg PO BID tablet 06/09/21 Baricitinib [Olumiant] 2 mg PO DAILY tablet 06/09/21 Docusate [Colace Cap*] 100 mg PO BID cap 06/09/21 Insulin -Regular Human [Novolin -R*] See Protocol SQ ACHS ml 06/09/21 Nepro Shake [Nepro*] 240 ml PO TID can 06/09/21 Ondansetron [Zofran*] 4 mg IV Q6HP PRN vial 06/09/21 dexAMETHasone [Decadron*] 4 mg IV Q8HR vial 06/09/21 hydroCHLOROthiazide [Hydrochlorothiazide*] 12.5 mg PO DAILY cap 06/09/21 levoFLOXacin [Levaquin*] 750 mg PO Q48H tab 06/09/21 - Past Medical/Surgical History Diabetic: Yes -: Hypertension -: DM2, [id number] -: Peripheral vascular disease -: Aortobifem bypass - Social History Alcohol use: Yes CD- Drugs: No Caffeine use: Yes Review of Systems 10-point ROS is otherwise unremarkable General: Weakness, Malaise Physical Examination - Physical Exam General: Alert, In no apparent distress HEENT: Atraumatic, PERRLA, Mucous membr. moist/pink, EOMI, Sclerae nonicteric Neck: Supple, 2+ carotid pulse no bruit, No LAD, Without JVD or thyroid abnormality Respiratory: Clear to auscultation bilaterally, Normal air movement Cardiovascular: Regular rate/rhythm, Normal S1 S2 Gastrointestinal: Normal bowel sounds, No tenderness Musculoskeletal: No tenderness Integumentary: No rashes Neurological: Normal gait, Normal speech, Normal strength at 5/5 x4 extr, Normal tone, Normal affect Lymphatics: No axilla or inguinal lymphadenopathy - Studies Laboratory Data (last 24 hrs) 01/25/22 14:52: PT 15.3 H, INR 1.38 01/25/22 14:52: Sodium 137, Potassium 4.7, BUN 59 H, Creatinine 5.33 H*, Glucose 91, Magnesium 2.2, Total Bilirubin 3.0 H, AST 153 H, ALT 69, Alkaline Phosphatase 372 H, Lipase 283 01/25/22 14:52: WBC 14.70 H, Hgb 11.2 L, Hct 33.7 L, Plt Count 411 H Assessment and Plan - Problems (Diagnosis) (1) Acute on chronic renal failure Current Visit: Yes Status: Acute Plan: Have discussed the patient with Dr. Ward. Will start him on fluids. He has normal potassium. The patient has no palpations. Hopefully a few days of fluids will turn him around. He does not want a kent. Asked him to use a urinal so we can monitor his output. Qualifiers: Chronic kidney disease stage: stage 5, not on chronic dialysis (2) DM2 (diabetes mellitus, type 2) Current Visit: Yes Status: Acute Plan: He was on metformin. will hold that considering his kidney function. Check an a1c. Start him on sliding scale insulin. 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 Will hold that. Use prn hydralazine. He is currently hypotensive. Will adjust his medications as necessary Qualifiers: Hypertension type: primary hypertension Qualified Code(s): I10 - Essential (primary) hypertension Discharge Plan: Home Plan to discharge in: 24 Hours - Advance Directives Does patient have a Living Will: Yes Does patient have a Durable POA for Healthcare: Yes - Code Status/Comfort Care Code Status Assessed: No Code Status: Full Code Physician Review: Patient Assessed, Agree with Above Assessment and Plan Critical Care: No Time Spent Managing Pts Care (In Minutes): 45
[2022-01-25] MEDS ORDERED: NA CHLORIDE 0.9% 1,000 ML IV SCH (19:00)
[2022-01-25] MEDS ORDERED: D5W 1,000 ML with NA BICARB 8.4% 150 MEQ IV SCH ×2 (21:00)
[2022-01-25] MEDS: INSULIN -REGULAR HUMAN 50 UNIT/0.5 ML ML SQ SCH (21:00)
[2022-01-25] MEDS ORDERED: D5W 1,000 ML IV ONE (21:57)
[2022-01-25] MEDS ORDERED: SODIUM BICARB 50 MEQ/50ML VIAL ONE (21:58)
[2022-01-25] MEDS ORDERED: ROSUVASTATIN 10 MG TAB ONE (22:51)
[2022-01-25] MEDS: ROSUVASTATIN 10 MG TAB PO SCH (23:10)
[2022-01-26 04:00] LABS: Absolute Lymphocytes (CBC) 0.9 K/uL (0.7-4.9); Hematocrit 30.2 % (39.6-49.0); Lymphocytes % 7.7 % (15.3-44.8); MCV 90.3 fL (80-100); MPV 6.7 fL (7.6-11.3); RBC Red Blood Cell Count 3.35 M/uL (4.33-5.43)
[2022-01-26 04:13] LABS: Phosphorus 4.9 mg/dL (2.5-4.9); Uric Acid 8.9 mg/dL (3.5-7.2)
[2022-01-26 04:20] LABS: Albumin 1.4 g/dL (3.4-5.0); Bilirubin Total 2.8 mg/dL (0.2-1.0); Protein, Total 4.5 g/dL (6.4-8.2)
[2022-01-26] MEDS: INSULIN -REGULAR HUMAN 50 UNIT/0.5 ML ML SQ SCH ×4 (07:30→20:47)
[2022-01-26] MEDS ORDERED: PNEUMOCOCCAL VACCINE 0.5 ML IMVAC ONE (09:00)
--- NOTE | 2022-01-26 09:21 | EKG ---
Test Date: 2022-01-25 Test Time: 14:40:22 Date Night Sitter: RAYMUNDO MEASUREMENT RESULTS: Intervals: Rate: 54 OK: 276 QRSD: 106 QT: 488 QTc: 462 [place]: P: 76 OK: 276 QRS: -20 T: 64 INTERPRETIVE STATEMENTS: Sinus bradycardia with 1st degree AV block Cannot rule out Anterior infarct, age undetermined Abnormal ECG Compared to ECG 06/04/2021 10:43:21 Myocardial infarct finding now present Sinus rhythm no longer present Prolonged QT interval no longer present Electronically Signed On 01-26-22 09:18:48 CDT by Homer Carrington
--- NOTE | 2022-01-26 11:27 | P.PN ---
Subjective Date of Service: 01/26/22 Primary Care Provider: unknown Chief Complaint: acute on chronic renal failure Review of Systems 10-point ROS is otherwise unremarkable General: Weakness Physical Examination - Vital Signs Temperature: 97.0 F Blood Pressure: 103/55 Pulse: 55 Respirations: 20 Pulse Ox (%): 96 - Physical Exam General: Alert, In no apparent distress HEENT: Atraumatic, PERRLA, EOMI Neck: Supple, JVD not distended Respiratory: Clear to auscultation bilaterally, Normal air movement Cardiovascular: Regular rate/rhythm, Normal S1 S2 Gastrointestinal: Normal bowel sounds, No tenderness Musculoskeletal: No tenderness Integumentary: No rashes Neurological: Normal speech, Normal tone, Normal affect Lymphatics: No axilla or inguinal lymphadenopathy - Studies Laboratory Data (last 24 hrs) 01/25/22 14:52: PT 15.3 H, INR 1.38 01/25/22 14:52: Sodium 137, Potassium 4.7, BUN 59 H, Creatinine 5.33 H*, Glucose 91, Magnesium 2.2, Total Bilirubin 3.0 H, AST 153 H, ALT 69, Alkaline Phosphatase 372 H, Lipase 283 01/25/22 14:52: WBC 14.70 H, Hgb 11.2 L, Hct 33.7 L, Plt Count 411 H Assessment And Plan - Current Problems (Diagnosis) (1) Acute on chronic renal failure Current Visit: Yes Status: Acute Plan: Have discussed the patient with Dr. Ward. Will start him on fluids. He has normal potassium. The patient has no palpations. Hopefully a few days of fluids will turn him around. He does not want a kent. Asked him to use a urinal so we can monitor his output. 9.3 slight improvement in the creatine. He is making urine. Will continue to follow creatine with gently fluid hydration Qualifiers: Chronic kidney disease stage: stage 5, not on chronic dialysis (2) DM2 (diabetes mellitus, type 2) Current Visit: Yes Status: Acute Plan: He was on metformin. will hold that considering his kidney function. Check an a1c. Start him on sliding scale insulin. 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 Will hold that. Use prn hydralazine. He is currently hypotensive. Will adjust his medications as necessary Qualifiers: Hypertension type: primary hypertension Qualified Code(s): I10 - Essential (primary) hypertension Discharge Plan: Home Plan to discharge in: Greater than 2 days - Code Status/Comfort Care Code Status Assessed: No Physician Review: Patient Assessed, Agree with Above Assessment and Plan Critical Care: No Time Spent Managing PTS Care (In Minutes): 20
--- NOTE | 2022-01-26 15:03 | CON ---
Date of Consultation: 01/26/2022 Reason For Consultation: Acute renal failure. History Of Present Illness: Mr. Freeman is a 76-year-old male with past medical history significant for history of chronic renal insufficiency stage 3, hypertension, type 2 diabetes, who presented to [facility] because of feeling weakness and fatigued. The patient was found to have acute renal failure with a creatinine of 5.3, and hence he has been admitted to the hospital. He was being followed by Dr. Santo since his previous hospitalization for pneumonia and for COVID i nfection. He was found to have severe volume overload and was advised to take Bumex and titrated bas ed on his swelling. He claims he was titrating it and was taking it as needed based on his swelling; however, he was found to have severe dehydration and severe acute renal insufficiency. His past cre atinine was noted to be 1.7 back in May of this year, now it is 5.09, slightly better from 5.33 y esterday. The patient also states that he feels slightly better. He is also working with [employer]. Past Medical History: Significant for history of multiple COVID pneumonias in the past, type 2 non-i nsulin-dependent diabetes, hypertension, peripheral vascular disease, and aortobifemoral bypass. Family History: Noncontributory. Social History: He is a former smoker, quit in the 80s. Denies any alcohol or drug use at this time . He lives at home with his family. Review of Systems: Positive for weakness and lethargy. Denies any shortness of breath. Denies any abdominal pain. Rep orts good urination. Denies any NSAID use. All other review of systems are negative. Laboratory Data: Showing sodium of 137, potassium of 4, chloride of 109, BUN of 57, and creatinine o f 5.09. Calcium was low to 6.9 and AST was elevated to 137, which is slightly better than 153 yester day. It had been elevated back in May also. CBC showing WBC count of 11, hemoglobin of 7.1, hem atocrit of 30.2, and platelet count of 249. Urinalysis showed 3+ blood, but no evidence of any infec tion so far. Urine culture is still pending at this time. Current Medications: Include Tylenol p.r.n., hydralazine p.r.n., and rosuvastatin. Impression: 1.Acute renal failure, likely secondary to over diuresis. The patient has been ordered vasculitis s erologies, which are currently pending at this time; however, I do think that he looks volume deplete d on examination. He did receive some gentle IV hydration yesterday. I will order some more fluids for today and monitor his labs closely. Given his underlying congestive heart failure, we would avoi d over hydration. 2.Weakness and lethargy, likely secondary to debility and over diuresis. Continue physical therapy and monitor. 3.Anemia secondary to chronic disease. 4.Possible urinary tract infection. Urine culture is currently pending. Currently not on any antib iotics. Plan: Overall the patient is doing well. We will go ahead and get a renal ultrasound for further ev aluation to make sure that he does not have an underlying obstruction that could be leading to renal failure. We will go ahead and order gentle hydration as well and monitor his volume status closely. We will await urine cultures to decide on antibiotic usage. VV/MODL Voice ID: [id number] Report ID: [id number]
[2022-01-26] MEDS: NA CHLORIDE 0.9% 1,000 ML IV SCH (16:22)
[2022-01-26] MEDS: ENOXAPARIN 30 MG/0.3 ML SQ SCH (16:23)
--- NOTE | 2022-01-26 20:23 | RAD REPORT ---
EXAM DESCRIPTION: US - Renal Ultrasound-Complete - 01/26/2022 8:03 pm CLINICAL HISTORY: acute renal failure COMPARISON: Thorax Wo Con dated 06/04/2021; Chest Single View dated 06/09/2021 FINDINGS: Both kidneys are normal in size, shape and echotexture. The right kidney measures 10.8 cm. No hydronephrosis, focal mass or perinephric fluid. The left kidney measures 11 cm. Simple appearing cystic collection adjacent to the left kidney which may be an exophytic renal cyst Nonvisualized bladder. Small volume of ascites. Heterogeneous and masslike structure in the left lower quadrant measuring 10.8 cm. IMPRESSION: 1. No evidence of hydronephrosis. 2. Complex mass in the left lower quadrant. This is of uncertain etiology. Recommend dedicated CT of the abdomen and pelvis. 3. Small volume of ascites.
[2022-01-26] MEDS: ROSUVASTATIN 10 MG TAB PO SCH (20:55)
[2022-01-27] MEDS: INSULIN -REGULAR HUMAN 50 UNIT/0.5 ML ML SQ SCH ×4 (07:30→21:00)
[2022-01-27 08:03] LABS: Hematocrit 32.3 % (39.6-49.0); Lymphocytes % 8.7 % (15.3-44.8); MCV 92.2 fL (80-100); MPV 7.4 fL (7.6-11.3)
[2022-01-27 08:20] LABS: Specific Gravity 1.016 (1.005-1.030); Urine Bacteria <20 /HPF (<20); Urine Bilirubin NEGATIVE (Negative); Urine Blood 1+ (Negative); Urine Clarity Turbid (Clear); Urine Color Yellow (Yellow); Urine Glucose NEGATIVE (Negative); Urine Mucus Slight /HPF (None Seen); Urine Protein 1+ (Negative); Urine RBC <5 /HPF (None Seen); Urine Urobilinogen 1+ (Normal); Urine pH 5.5 (5.0-7.0)
[2022-01-27 08:40] LABS: Albumin 1.5 g/dL (3.4-5.0); Bilirubin Total 2.4 mg/dL (0.2-1.0); Protein, Total 4.7 g/dL (6.4-8.2)
[2022-01-27 08:41] LABS: Potassium 4.1 mmol/L (3.5-5.1)
[2022-01-27 09:03] LABS: UR PROTEIN 136.7 mg/dL (<11.9); Urine Protein/Creatinine Ratio 0.98 ratio (<0.15)
--- NOTE | 2022-01-27 11:37 | P.PN ---
Subjective Date of Service: 01/27/22 Primary Care Provider: unknown Chief Complaint: acute on chronic renal failure Subjective: No new changes Review of Systems 10-point ROS is otherwise unremarkable Physical Examination - Vital Signs Temperature: 97.8 F Blood Pressure: 110/58 Pulse: 57 Respirations: 18 Pulse Ox (%): 96 - Physical Exam General: Alert, In no apparent distress HEENT: Atraumatic, PERRLA, EOMI Neck: Supple, JVD not distended Respiratory: Clear to auscultation bilaterally, Normal air movement Cardiovascular: Regular rate/rhythm, Normal S1 S2 Gastrointestinal: Normal bowel sounds, No tenderness Musculoskeletal: No tenderness Integumentary: No rashes Neurological: Normal speech, Normal tone, Normal affect Lymphatics: No axilla or inguinal lymphadenopathy Assessment And Plan - Current Problems (Diagnosis) (1) Acute on chronic renal failure Current Visit: Yes Status: Acute Plan: Have discussed the patient with Dr. Ward. Will start him on fluids. He has normal potassium. The patient has no palpations. Hopefully a few days of fluids will turn him around. He does not want a kent. Asked him to use a urinal so we can monitor his output. 9.4 Very slow improvement . He is making urine. Will continue to follow creatine with gently fluid hydration. Have discussed with his daughter. He needs time for kidney improvement Qualifiers: Chronic kidney disease stage: stage 5, not on chronic dialysis (2) DM2 (diabetes mellitus, type 2) Current Visit: Yes Status: Acute Plan: He was on metformin. will hold that considering his kidney function. Check an a1c. Start him on sliding scale insulin. 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 Will hold that. Use prn hydralazine. He is currently hypotensive. Will adjust his medications as necessary Qualifiers: Hypertension type: primary hypertension Qualified Code(s): I10 - Essential (primary) hypertension Discharge Plan: Home Plan to discharge in: Greater than 2 days - Code Status/Comfort Care Code Status Assessed: No Physician Review: Patient Assessed, Agree with Above Assessment and Plan Critical Care: No Time Spent Managing PTS Care (In Minutes): 40
[2022-01-27] MEDS: NA CHLORIDE 0.9% 1,000 ML IV SCH (11:39)
--- NOTE | 2022-01-27 15:08 | RAD REPORT ---
EXAM DESCRIPTION: CT - Abdomen Pelvis Wo Contrast - 01/27/2022 2:52 pm CLINICAL HISTORY: Abdominal mass COMPARISON: CT chest May 2021 and renal ultrasound 01/26/2022 TECHNIQUE: Computed axial tomography of the abdomen and pelvis was obtained. IV and oral contrast we re not requested. All CT scans are performed using dose optimization technique as appropriate and may include automated exposure control or mA/KV adjustment according to patient size. FINDINGS: The evaluation of solid organs, vessels and bowel is limited secondary to the lack of con trast administration. Small hepatic cyst. Spleen, pancreas, adrenals grossly normal. Small nonobstructing left renal calculi. 2.5 centimeter cyst extends off of the left kidney. Addition al small left renal cyst. An aorto iliac stent has been placed into a very large abdominal aortic aneurysm. This is the mass se en on ultrasound. AP diameter of the aneurysm 10.6 centimeters There is no evidence of diverticulitis. Small bilateral pleural effusions. Small to moderate amount of ascites within the abdomen and pelvis Duodenal diverticulum Mild posterior subluxation of L1 on L2 Small inguinal hernias. Diffuse edema within subcutaneous tissues Mild abdominal lymphadenopathy presumably reactive in nature. IMPRESSION: Aorto bi-iliac stent has been placed into a very large abdominal aortic aneurysm. There is no evidence of rupture. Nonobstructing left renal calculi Small bilateral pleural effusions Small to moderate amount ascites
--- NOTE | 2022-01-27 15:16 | PN ---
Date of Progress Note: 01/27/2022 Subjective: The patient was seen and examined at bedside. He denies any complaints. Physical Examination: Vital Signs: Stable. General: He appears in no acute distress. HEENT: Atraumatic head. Lungs: Clear to auscultation. Abdomen: Soft and nontender. Extremities: Showed no evidence of edema. Laboratory Data: Showing creatinine improving to 4.9, BUN of 57. CBC showed WBC count of 11.7, hemo globin of 10.6, hematocrit of 32.3, and platelet count of 230. His LFTs showed elevated AST of 139, albumin was very low at 1.5. Total bilirubin was 2.4, which is currently trending down. Renal ultra sound was done yesterday, which showed a mass in the left lower quadrant noted on the ultrasound and no evidence of hydronephrosis. Impression: 1.Acute renal failure, likely related to over diuresis. 2.Severe hypoalbuminemia. 3.Mass in the left lower quadrant, complex mass noted. CT scan has been ordered. 4.Elevated total bilirubin and AST, trending down. Continue to monitor closely. Plan: The patient remains on IV fluids at this time. I will go ahead and discontinue the IV fluids and give him some albumin. We have ordered a CT scan of his abdomen and pelvis without contrast for further evaluation. Urine cultures, however, are showing no evidence of any infection. We will continue to monitor closely. Discussed the plan with Dr. Pool in detail. MARISEL/WILLIAM Voice ID: [id number] Report ID: [id number]
[2022-01-27] MEDS: ENOXAPARIN 30 MG/0.3 ML SQ SCH (16:23)
[2022-01-27] MEDS: ALBUMIN HUMAN 25% 50 ML IV SCH (22:37)
[2022-01-27] MEDS: GLUCERNA SHAKE 237 ML CAN PO SCH (22:38)
[2022-01-27] MEDS: ROSUVASTATIN 10 MG TAB PO SCH (22:38)
[2022-01-28] MEDS: INSULIN -REGULAR HUMAN 50 UNIT/0.5 ML ML SQ SCH ×4 (07:30→21:00)
[2022-01-28] MEDS: GLUCERNA SHAKE 237 ML CAN PO SCH ×2 (08:01→21:00)
[2022-01-28] MEDS: ALBUMIN HUMAN 25% 50 ML IV SCH ×2 (08:01→21:25)
[2022-01-28 08:45] LABS: Absolute Lymphocytes (CBC) 0.9 K/uL (0.7-4.9); Hematocrit 34.8 % (39.6-49.0); Lymphocytes % 7.5 % (15.3-44.8); MPV 7.2 fL (7.6-11.3); RBC Red Blood Cell Count 3.78 M/uL (4.33-5.43)
[2022-01-28 09:02] LABS: Albumin 1.7 g/dL (3.4-5.0); Bilirubin Total 2.2 mg/dL (0.2-1.0); Potassium 4.3 mmol/L (3.5-5.1); Protein, Total 4.9 g/dL (6.4-8.2)
--- NOTE | 2022-01-28 11:19 | P.PN ---
Subjective Date of Service: 01/28/22 Primary Care Provider: unknown Chief Complaint: acute on chronic renal failure Subjective: No new changes Review of Systems 10-point ROS is otherwise unremarkable Physical Examination - Vital Signs Temperature: 97.2 F Blood Pressure: 118/59 Pulse: 63 Respirations: 16 Pulse Ox (%): 96 - Physical Exam General: Alert, In no apparent distress HEENT: Atraumatic, PERRLA, EOMI Neck: Supple, JVD not distended Respiratory: Clear to auscultation bilaterally, Normal air movement Cardiovascular: Regular rate/rhythm, Normal S1 S2 Gastrointestinal: Normal bowel sounds, No tenderness Musculoskeletal: No tenderness Integumentary: No rashes Neurological: Normal speech, Normal tone, Normal affect Lymphatics: No axilla or inguinal lymphadenopathy - Studies Microbiology Data (last 24 hrs): 01/25/22 16:15 Clean Catch Urine [place] Count - Final <10,000 CFU/ML. 01/25/22 16:15 Clean Catch Urine - Final MIXED JAYSON. Assessment And Plan - Current Problems (Diagnosis) (1) Acute on chronic renal failure Current Visit: Yes Status: Acute Plan: Have discussed the patient with Dr. Ward. Will start him on fluids. He has normal potassium. The patient has no palpations. Hopefully a few days of fluids will turn him around. He does not want a kent. Asked him to use a urinal so we can monitor his output. 9.5 slight worsening. He has no complaints. The mass was a renal stent. will continue to monitor and discuss with Dr. Heredia Qualifiers: Chronic kidney disease stage: stage 5, not on chronic dialysis (2) DM2 (diabetes mellitus, type 2) Current Visit: Yes Status: Acute Plan: He was on metformin. will hold that considering his kidney function. Check an a1c. Start him on sliding scale insulin. Will use an ADA diet on this patient Qualifiers: Diabetes mellitus prison insulin use: without exterminator use Diabetes mellitus complication status: without complication Qualified Code(s): E11.9 - Type 2 diabetes mellitus without complications (3) HTN (hypertension) Current Visit: Yes Status: Acute Plan: Normally on losartan per his last visit. Will hold that. Use prn hydralazine. He is currently hypotensive. Will adjust his medications as necessary Qualifiers: Hypertension type: primary hypertension Qualified Code(s): I10 - Essential (primary) hypertension Discharge Plan: Home Plan to discharge in: Greater than 2 days - Code Status/Comfort Care Code Status Assessed: No Physician Review: Patient Assessed, Agree with Above Assessment and Plan Critical Care: No Time Spent Managing PTS Care (In Minutes): 20
--- NOTE | 2022-01-28 13:31 | PN ---
Date of Progress Note: 01/28/2022 Subjective: The patient was seen and examined at bedside. He denies any complaints at this time. Physical Examination: Vital Signs: Have been reviewed and are stable. Blood pressure continues to be soft. HEENT: Atraumatic head. Lungs: Clear to auscultation. Abdomen: Soft and nontender. Extremities: Showed no evidence of edema. Laboratory Data: Showing creatinine of 5.1, BUN of 58, sodium of 139, and potassium of 4.3. CBC [place] wing hemoglobin of 11.4, hematocrit of 34.8, and platelet count of 184. WBC count of 11. CT scan fi ndings showed no evidence of any acute intraabdominal finding. He was noted to have aortobiiliac deanne nt into large abdominal aortic aneurysm with no evidence of any rupture. He was also found to have s mall bilateral pleural effusions and [id number]-[id number] amount of ascites. Upon further review of his blood work, he was also found to have persistently elevated AST with albumin, which seems to be pers istently low at this time. He is currently receiving albumin to improve his albumin levels and his p erfusion. Impression: 1.Acute renal failure, initially thought to be over-diuresis. He responded minimally to IV fluids a t this time and his creatinine continues to got great a little worse without the fluids; however, we are also concerned for volume overload with hypoalbuminemia. Serologies have been sent off for [facility] workup of nephrotic syndrome and hypoalbuminemia. He may need a kidney biopsy for further evaluat ion. If renal function has not continued to improve and his LFTs continued to be slightly elevated w ith elevated bilirubin as well, he has had further evaluation of his left lower quadrant mass noted o n the renal ultrasound; however, it seems to be stable and he does have history of aortic bi-iliac st ent with a history of abdominal aortic aneurysm. We will continue to monitor closely and follow up o n his renal function labs. Continue albumin at this time and we will consider kidney biopsy if his renal function fails to improve. VV/MODL Voice ID: [id number] Report ID: [id number]
[2022-01-28] MEDS: ENOXAPARIN 30 MG/0.3 ML SQ SCH (17:43)
[2022-01-28] MEDS: ROSUVASTATIN 10 MG TAB PO SCH (21:25)
[2022-01-29 06:11] LABS: Albumin 1.9 g/dL (3.4-5.0); Phosphorus 3.6 mg/dL (2.5-4.9); Potassium 4.3 mmol/L (3.5-5.1)
[2022-01-29] MEDS: INSULIN -REGULAR HUMAN 50 UNIT/0.5 ML ML SQ SCH ×4 (07:30→20:56)
--- NOTE | 2022-01-29 07:45 | P.PN ---
Subjective Date of Service: 01/29/22 Primary Care Provider: unknown Chief Complaint: acute on chronic renal failure Subjective: No new changes Review of Systems 10-point ROS is otherwise unremarkable Physical Examination - Vital Signs Temperature: 97.1 F Blood Pressure: 117/65 Pulse: 73 Respirations: 15 Pulse Ox (%): 94 - Physical Exam General: Alert, In no apparent distress HEENT: Atraumatic, PERRLA, EOMI Neck: Supple, JVD not distended Respiratory: Clear to auscultation bilaterally, Normal air movement Cardiovascular: Regular rate/rhythm, Normal S1 S2 Gastrointestinal: Normal bowel sounds, No tenderness Musculoskeletal: No tenderness Integumentary: No rashes Neurological: Normal speech, Normal tone, Normal affect Lymphatics: No axilla or inguinal lymphadenopathy - Studies Microbiology Data (last 24 hrs): 01/25/22 16:15 Clean Catch Urine [place] Count - Final <10,000 CFU/ML. 01/25/22 16:15 Clean Catch Urine - Final MIXED JAYSON. Assessment And Plan - Current Problems (Diagnosis) (1) Acute on chronic renal failure Current Visit: Yes Status: Acute Plan: Have discussed the patient with Dr. Ward. Will start him on fluids. He has normal potassium. The patient has no palpations. Hopefully a few days of fluids will turn him around. He does not want a kent. Asked him to use a urinal so we can monitor his output. 9.6 Creatine and gfr are stable. will discuss with cardiology Qualifiers: Acute renal failure type: unspecified Chronic kidney disease stage: stage 5, not on chronic dialysis Qualified Code(s): N17.9 - Acute kidney failure, unspecified; N18.5 - Chronic kidney disease, stage 5 (2) DM2 (diabetes mellitus, type 2) Current Visit: Yes Status: Acute Plan: He was on metformin. will hold that considering his kidney function. Check an a1c. Start him on sliding scale insulin. Will use an ADA diet on this patient Qualifiers: Diabetes mellitus prison insulin use: without prison use Diabetes mellitus complication status: without complication Qualified Code(s): E11.9 - Type 2 diabetes mellitus without complications (3) HTN (hypertension) Current Visit: Yes Status: Acute Plan: Normally on losartan per his last visit. Will hold that. Use prn hydralazine. He is currently hypotensive. Will adjust his medications as necessary Qualifiers: Hypertension type: primary hypertension Qualified Code(s): I10 - Essential (primary) hypertension Discharge Plan: Home Plan to discharge in: Greater than 2 days - Code Status/Comfort Care Code Status Assessed: No Physician Review: Patient Assessed, Agree with Above Assessment and Plan Critical Care: No Time Spent Managing PTS Care (In Minutes): 20
[2022-01-29] MEDS: ALBUMIN HUMAN 25% 50 ML IV SCH (08:01)
[2022-01-29] MEDS: GLUCERNA SHAKE 237 ML CAN PO SCH ×2 (08:02→20:56)
--- NOTE | 2022-01-29 11:32 | P.PN ---
Date of Service: 01/29/22 Nephrology note (S) Pt denies any acute complaints, denies dyspnea, abdominal pain, nausea or other but acknowledges low appetite. (O) Vitals reviewed in the EMR Gen: NAD, non tachypnec HEENT: Atraumatic, sclera anicteric Resp: b/l air entry, no rhonchi CVS: RRR, no loud murmurs appreciated Abd: Soft, mild to mod distention, NT Ext: No LE edema, shins are non tender Neuro: Awake, alert, responsive, non focal Labs reviewed in the EMR (A/P): 1. Stage III ARF per GRANT def with presenting Cr level > 4 mg/dl on likely underlying CKD NOS, with prior MAURIZIO earlier in the year. Cr level has only marginally trended lower from peak levels, pt likely did suffer some ATN with relatively lower BP on presentation and recent use of diuretics/ARB reportedly at home. Held off on much volume challenge given reports of volume overload recently as OP and findings here with some effusions and ascites on imaging. No emergent indication for SECURITY COMPLIANCE SPECIALIST/HD. I would ideally likely to see some further renal recovery prior to discharge. Cont to hold nephrotoxic agents, dose meds for reduced CrCl 2. Metab acidosis -will place on low dose PO alkali to buffer 3. Pleural effusion NOS, ascites other. Unclear what is driving that process, will get echo. He does have severe hypoalbuminemia which likely has contributed to 3rd spacing but his Up/c is not indicating nephrotic range proteinuria. Has gotten some IV Albumin infusions over the weekend. Alpesh Miller MD, CLARISSE
[2022-01-29] MEDS ORDERED: FUROSEMIDE 40 MG/4 ML VIAL IV ONE (12:00)
[2022-01-29] MEDS: SODIUM BICARB 325 MG TAB PO SCH ×2 (12:20→20:55)
[2022-01-29] MEDS: ENOXAPARIN 30 MG/0.3 ML SQ SCH (17:14)
[2022-01-29 18:11] LABS: HBsAG Nonreactive (Nonreactive)
[2022-01-29] MEDS: ROSUVASTATIN 10 MG TAB PO SCH (20:55)
[2022-01-29 22:48] VITALS: BMI 29.5
[2022-01-30 05:57] LABS: Absolute Lymphocytes (CBC) 1.2 K/uL (0.7-4.9); Hematocrit 32.6 % (39.6-49.0); Lymphocytes % 9.6 % (15.3-44.8); MCV 90.5 fL (80-100); MPV 7.1 fL (7.6-11.3)
[2022-01-30 06:29] LABS: Albumin 1.8 g/dL (3.4-5.0); Bilirubin Total 2.1 mg/dL (0.2-1.0); Phosphorus 3.5 mg/dL (2.5-4.9); Potassium 4.4 mmol/L (3.5-5.1)
[2022-01-30] MEDS: INSULIN -REGULAR HUMAN 50 UNIT/0.5 ML ML SQ SCH ×4 (07:30→21:00)
--- NOTE | 2022-01-30 08:21 | P.PN ---
Subjective Date of Service: 01/30/22 Primary Care Provider: unknown Chief Complaint: acute on chronic renal failure Subjective: No new changes Review of Systems 10-point ROS is otherwise unremarkable General: Weakness Physical Examination - Vital Signs Temperature: 97.9 F Blood Pressure: 101/55 Pulse: 68 Respirations: 17 Pulse Ox (%): 93 - Physical Exam General: Alert, In no apparent distress HEENT: Atraumatic, PERRLA, EOMI Neck: Supple, JVD not distended Respiratory: Clear to auscultation bilaterally, Normal air movement Cardiovascular: Regular rate/rhythm, Normal S1 S2 Gastrointestinal: Normal bowel sounds, No tenderness Musculoskeletal: No tenderness Integumentary: No rashes Neurological: Normal speech, Normal tone, Normal affect Lymphatics: No axilla or inguinal lymphadenopathy Assessment And Plan - Current Problems (Diagnosis) (1) Acute on chronic renal failure Current Visit: Yes Status: Acute Plan: Have discussed the patient with Dr. Ward. Will start him on fluids. He has normal potassium. The patient has no palpations. Hopefully a few days of fluids will turn him around. He does not want a kent. Asked him to use a urinal so we can monitor his output. 9.7 creatine same. He did responds to lasix challenge. Discussed with Dr. Shepard. Have discussed his prognosis. Qualifiers: Acute renal failure type: unspecified Chronic kidney disease stage: stage 5, not on chronic dialysis Qualified Code(s): N17.9 - Acute kidney failure, unspecified; N18.5 - Chronic kidney disease, stage 5 (2) DM2 (diabetes mellitus, type 2) Current Visit: Yes Status: Acute Plan: He was on metformin. will hold that considering his kidney function. Check an a1c. Start him on sliding scale insulin. Will use an ADA diet on this patient Qualifiers: Diabetes mellitus manager intermediate insulin use: without manager intermediate use Diabetes mellitus complication status: without complication Qualified Code(s): E11.9 - Type 2 diabetes mellitus without complications (3) HTN (hypertension) Current Visit: Yes Status: Acute Plan: Normally on losartan per his last visit. Will hold that. Use prn hydralazine. He is currently hypotensive. Will adjust his medications as necessary Qualifiers: Hypertension type: primary hypertension Qualified Code(s): I10 - Essential (primary) hypertension Discharge Plan: Home Plan to discharge in: 24 Hours - Code Status/Comfort Care Code Status Assessed: No Physician Review: Patient Assessed, Agree with Above Assessment and Plan Critical Care: No Time Spent Managing PTS Care (In Minutes): 25
[2022-01-30] MEDS: SODIUM BICARB 325 MG TAB PO SCH ×2 (08:30→21:14)
[2022-01-30] MEDS: GLUCERNA SHAKE 237 ML CAN PO SCH ×2 (08:31→21:14)
--- NOTE | 2022-01-30 12:27 | P.PN ---
Nephrology note (S) Pt seen walking slowly from bathroom to bed with a walker, denies lightheadedness but acknowledges weakness and he appeared mildly winded. RN reports that yesterday he was not able to get up from the toilet without help so this is an improvement. Echo done at bedside. Discussed case with Dr. Pool this AM and with pt in detail, no signs of renal recovery yet so discussed with pt the possibility of considering temp HD and monitoring as an OP for renal recovery in between dialysis sessions. Pt initially opposed to HD and wanting to give more time with just monitoring but on further discussion is willing to consider above plan. (O) Vitals reviewed in the EMR Gen: NAD, non tachypnec HEENT: Atraumatic, sclera anicteric Resp: b/l air entry, no rhonchi CVS: RRR, no loud murmurs appreciated Abd: Soft, mild to mod distention, NT Ext: No LE edema, shins are non tender Neuro: Awake, alert, responsive, non focal Labs reviewed in the EMR (A/P): 1. Stage III ARF per GRANT def with presenting Cr level > 4 mg/dl on likely underlying CKD NOS, with prior MAURIZIO earlier in the year. Cr level have not really downward trended and while not progressively upward rising, pt likely did suffer some ATN with relatively lower BP on presentation and recent use of diuretics/ARB reportedly at home. No hydro on imaging, no evidence of absence of renal blood flow on u/s with hx of large AAA and stent graft repair although a specific renal duplex study was not done. Held off on much volume challenge given reports of volume overload recently as OP and findings here with some effusions and ascites on imaging. No emergent indication for THEATER EDUCATION TEACHER/HD yet but with no clear renal recovery, the safest way for pt to discharge would be to do so on temporary HD while we monitor for signs of renal recovery as an OP as that may takes weeks or even longer. Cont to hold nephrotoxic agents, dose meds for reduced CrCl 2. Metab acidosis -did place on low dose PO alkali to buffer, will d/c if HD initiated. 3. Pleural effusion NOS, ascites other. Unclear what is driving that process other than 3rd spacing in part due to low albumin levels, so did order 2D echo. He does have severe hypoalbuminemia but his Up/c was not indicating nephrotic range proteinuria although could be inaccurate. Will get 24h urine study. Serologies ordered by Dr. Pryor remain pending. Alpesh Miller MD, FASN
[2022-01-30] MEDS: ENOXAPARIN 30 MG/0.3 ML SQ SCH (16:33)
[2022-01-30] MEDS: ROSUVASTATIN 10 MG TAB PO SCH (21:14)
[2022-01-31 03:46] LABS: Absolute Lymphocytes (CBC) 0.7 K/uL (0.7-4.9); Hematocrit 33.3 % (39.6-49.0); Lymphocytes % 7.1 % (15.3-44.8); MCV 90.7 fL (80-100); MPV 7.2 fL (7.6-11.3); RBC Red Blood Cell Count 3.67 M/uL (4.33-5.43)
[2022-01-31 03:49] LABS: Protime INR 1.37
[2022-01-31 04:14] LABS: Albumin 1.8 g/dL (3.4-5.0); Phosphorus 3.8 mg/dL (2.5-4.9); Potassium 4.3 mmol/L (3.5-5.1)
[2022-01-31] MEDS: INSULIN -REGULAR HUMAN 50 UNIT/0.5 ML ML SQ SCH ×4 (07:30→21:00)
[2022-01-31] MEDS: GLUCERNA SHAKE 237 ML CAN PO SCH ×2 (08:28→20:21)
[2022-01-31] MEDS: SODIUM BICARB 325 MG TAB PO SCH (08:28)
--- NOTE | 2022-01-31 08:55 | ECHO ---
HEIGHT: 6 ft 0 in WEIGHT: 223 lb 1.6 oz DATE OF STUDY: 01/30/[address]: Alpesh Miller 2-DIMENSIONAL: YES M.MODE: YES DOPPLER: NO COLOR FLOW: NO TDS: YES PORTABLE: YES DEFINITY: NO BUBBLE STUDY: NO DIAGNOSIS: EFFUSIONS, ASCITES, CARDIOMYOPATHY CARDIAC HISTORY: CATHERIZATION: SURGERY: PROSTHETIC VALVE: PACEMAKER: MEASUREMENTS (cm) DIASTOLIC (NORMALS) SYSTOLIC (NORMALS) IVSd 1.3 (0.6-1.2) LA Diam 3.9 (1.9-4.0) LVEF 69% LVIDd 5.2 (3.5-5.7) LVIDs 3.2 (2.0-3.5) %FS 39% LVPWd 1.4 (0.6-1.2) Ao Diam 3.3 (2.0-3.7) 2 DIMENSIONAL ASSESSMENT: RIGHT ATRIUM: NORMAL LEFT ATRIUM: NORMAL RIGHT VENTRICLE: NORMAL LEFT VENTRICLE: NORMAL TRICUSPID VALVE: MITRAL VALVE: PULMONIC VALVE: AORTIC VALVE: PERICARDIAL EFFUSION: NONE AORTIC ROOT: NORMAL LEFT VENTRICULAR WALL MOTION: HYPERDYNAMIC LEFT VENTRICLE. DOPPLER/COLOR FLOW: NOT PERFORMED. COMMENTS: 2D ECHO ONLY (NO DOPPLER DONE). NORMAL LEFT VENTRICULAR EJECTION FRACTION GREATER THAN 60% (HYPERDYNAMIC). UNABLE TO EVALUATE VALVULAR STRUCTURES, GIVEN THAT DOPPLER WAS NOT REQUESTED. TECHNOLOGIST: NELLA FAITH
--- NOTE | 2022-01-31 09:29 | P.PN ---
Subjective Date of Service: 01/31/22 Primary Care Provider: unknown Chief Complaint: acute on chronic renal failure Subjective: No new changes Review of Systems 10-point ROS is otherwise unremarkable Physical Examination - Vital Signs Temperature: 97.5 F Blood Pressure: 112/60 Pulse: 73 Respirations: 18 Pulse Ox (%): 96 - Physical Exam General: Alert, In no apparent distress HEENT: Atraumatic, PERRLA, EOMI Neck: Supple, JVD not distended Respiratory: Clear to auscultation bilaterally, Normal air movement Cardiovascular: Regular rate/rhythm, Normal S1 S2 Gastrointestinal: Normal bowel sounds, No tenderness Musculoskeletal: No tenderness Integumentary: No rashes Neurological: Normal speech, Normal tone, Normal affect Lymphatics: No axilla or inguinal lymphadenopathy Assessment And Plan - Current Problems (Diagnosis) (1) Acute on chronic renal failure Current Visit: Yes Status: Acute Plan: Have discussed the patient with Dr. Ward. Will start him on fluids. He has normal potassium. The patient has no palpations. Hopefully a few days of fluids will turn him around. He does not want a kent. Asked him to use a urinal so we can monitor his output. 9.8 No improvement in Creatine. Discussed this with Dr. Shepard. Plans to start the patient on dialysis. Hopefully this will improve and we can stop this in the future. Will try to get a tunnel cath Qualifiers: Acute renal failure type: unspecified Chronic kidney disease stage: stage 5, not on chronic dialysis Qualified Code(s): N17.9 - Acute kidney failure, unspecified; N18.5 - Chronic kidney disease, stage 5 (2) DM2 (diabetes mellitus, type 2) Current Visit: Yes Status: Acute Plan: He was on metformin. will hold that considering his kidney function. Check an a1c. Start him on sliding scale insulin. Will use an ADA diet on this patient Qualifiers: Diabetes mellitus hot die press operator insulin use: without hot die press operator use Diabetes mellitus complication status: without complication Qualified Code(s): E11.9 - Type 2 diabetes mellitus without complications (3) HTN (hypertension) Current Visit: Yes Status: Acute Plan: Normally on losartan per his last visit. Will hold that. Use prn hydralazine. He is currently hypotensive. Will adjust his medications as necessary Qualifiers: Hypertension type: primary hypertension Qualified Code(s): I10 - Essential (primary) hypertension Discharge Plan: Home Plan to discharge in: Greater than 2 days - Code Status/Comfort Care Code Status Assessed: No Physician Review: Patient Assessed, Agree with Above Assessment and Plan Critical Care: No Time Spent Managing PTS Care (In Minutes): 25
--- NOTE | 2022-01-31 11:32 | P.PN ---
Nephrology note (S) Pt's renal function tests show no improvement, discussed plan for initiation of HD with pt extensively as well as with the primary team, Dr. Pool and primary RN. Dr. Pool kindly assisted with contacting Dr. Arambula who I am told will put in a TDC this noon as pt has been NPO. (O) Vitals reviewed in the EMR Gen: NAD, non tachypnec HEENT: Atraumatic, sclera anicteric Resp: b/l air entry, no rhonchi CVS: RRR, no loud murmurs appreciated Abd: Soft, mild to mod distention, NT Ext: No LE edema, shins are non tender Neuro: Awake, alert, responsive, non focal Labs reviewed in the EMR (A/P): 1. Stage III ARF per GRANT def with presenting Cr level > 4 mg/dl on likely underlying CKD NOS, with prior MAURIZIO earlier in the year. Cr level have not downward trended and while not progressively upward rising, there has not been any renal recovery indicating intrinsic injury and pt likely did suffer some ATN with relatively lower BP on presentation and recent use of diuretics/ARB reportedly at home. No hydro on imaging, no evidence of absence of renal blood flow on u/s with hx of large AAA and stent graft repair although a specific renal duplex study was not done. Held off on much volume challenge given reports of volume overload recently as OP and findings here with some effusions and ascites on imaging. With no clear renal recovery, the safest way for pt to discharge would be to do so on temporary HD while we monitor for signs of renal recovery as an OP as that may takes weeks or even longer. Plan for TDC placement today and initial HD this afternoon. Will consult CM for OP placement in ARF status Cont to hold nephrotoxic agents, dose meds for reduced CrCl 2. Metab acidosis -did place on low dose PO alkali to buffer, but will d/c as he will receive a bicarb load in dialysis 3. Pleural effusion NOS, ascites other. Unclear what is driving that process other than 3rd spacing in part due to low albumin levels, so did order 2D echo which does not show any significant LV dysfunction. He does have severe hypoalbuminemia but his Up/c was not indicating nephrotic range proteinuria although could be inaccurate. Will get 24h urine study. Serologies ordered by Dr. rPyor remain pending. Alpesh Miller MD, FASN
[2022-01-31] MEDS ORDERED: ALBUMIN HUMAN 25% 100 ML IV ONE (11:45)
[2022-01-31] MEDS ORDERED: HEPARIN 5000 UNIT/ML 1 ML VIAL ONE (12:45)
[2022-01-31] MEDS ORDERED: BUPIVACAINE 0.25% PF 30 ML VIAL ONE (12:45)
[2022-01-31] MEDS ORDERED: NA CHLORIDE 0.9% 0 ML ONE (12:45)
[2022-01-31] MEDS ORDERED: propofoL 200 MG/20 ML VIAL IV ONE (12:59)
[2022-01-31] MEDS ORDERED: LIDOCAINE 2% MPF 5 ML VIAL ONE (12:59)
[2022-01-31] MEDS ORDERED: CEFAZOLIN SODIUM 1 GM/VIAL ONE (13:05)
[2022-01-31] MEDS ORDERED: NA CHLORIDE 0.9% 500 ML ONE (13:05)
[2022-01-31] MEDS ORDERED: BUPIVACAINE 0.25% PF 10 ML VIAL SQ ONE (13:50)
--- NOTE | 2022-01-31 13:57 | P.OP ---
Preoperative diagnosis: Need for Dialysis Postoperative diagnosis: Need for Dialysis Primary procedure: Placement of 19cm Hemosplit Tunelled HD catheter Secondary procedure: ultrasound / flouroscopy / micro set utilized Anesthesia: GETA + Local Estimated blood loss: <5cc Specimen: none Findings: flouroscopy / ultrasound confirmed position Complications: None Implants: 19cm hemosplit catheter Transferred to: Recovery Room Condition: Good
--- NOTE | 2022-01-31 14:09 | CON ---
Date of Consultation: 01/31/2022 Reason For Consultation: End-stage renal disease requiring initiation of hemodialysis. Brief History Of Present Illness: Patient is a 76-year-old gentleman with a past medical history sig nificant for hypertension, diabetes, peripheral vascular disease, and chronic renal insufficiency, wh o presents with worsening renal failure. He had presented to the hospital on 01/25/2022 with fatigue , weakness, poor appetite, malaise, general lethargy, and as such, he came to the emergency room with the above-stated complaints. He was found to have a creatinine of 5.3. He is a patient of Dr. Kan brennan as an outpatient. He ultimately was brought in the hospital. Attempts were made to restore his renal function. However, it seems that he would benefit from initiation of hemodialysis at this time , and as such, I am consulted for the above-stated issue. Past Medical History: Significant for CKD stage 3, hypertension, diabetes, peripheral vascular disea se. Past Surgical History: Includes an aortobifem, right shoulder surgery. Allergies: NO KNOWN DRUG ALLERGIES. Home Medications: Included amiodarone, Norvasc, losartan, metformin, metoprolol, Crestor, Proventil, Eliquis, baricitinib, Colace, Novolin, Nepro, Zofran, Decadron, hydrochlorothiazide, Levaquin. Social History: He drinks alcohol recreationally. He denies recreational drug use. Denies smoking at this time. Has a past history of smoking. Review of Systems: Ten-point review of systems other than HPI, denies. Physical Examination: At the time of my examination: General: He is awake, alert, and oriented but poor historian. HEENT: He is normocephalic. Sclerae anicteric. Mucous membranes are moist. Oropharynx clear. Neck: Supple without JVD. Chest: Normal expansion and excursion. Cardiovascular: Regular rate and rhythm. Pulmonary: Clear to auscultation bilaterally. Abdomen: Soft. Extremities: No clubbing, cyanosis, or edema. He has a well-healed surgical scar on the right shoul devin. Vital Signs: Temperature of 97.5, heart rate was 73, blood pressure 112/60, respiratory rate 18, SpO 2 96% on room air. Pain is 0. Laboratory Data: Revealed white blood cell count of 9.5, hemoglobin 11.2, hematocrit 33.3, platelet count was 185, neutrophils were 86%. His PT 15.2, INR 1.36, PTT is 29.3. His chemistry showed a sod ium 140, potassium 4.3, chloride 109, carbon dioxide is 21, BUN 66, creatinine 5.43. His GFR is appr oximately 10. Glucose is 109, calcium 7.6, his total bilirubin 2.0, AST is 138, ALT 61, alkaline josé sphatase 329. He had an abdomen and pelvis CT on 01/27 officially read as aortobiiliac stent placed into a very large abdominal aortic aneurysm. There is no evidence of rupture. Nonobstructing left r enal calculi, small bilateral pleural effusions, small to moderate ascites. He had a renal ultrasoun d as well on 01/26 officially read as no evidence of hydronephrosis, complex mass in the left lower q uadrant of uncertain etiology. CT abdomen and pelvis recommended small volume ascites. The mass see n previously on the ultrasound was identified. It is a large abdominal aortic aneurysm with 10.6 cm in size. Assessment And Plan: This is a 76-year-old male who comes in with worsening renal dysfunction, acute on chronic renal disease, now requiring initiation of dialysis. 1.Continue medical management. 2.I explained risks, benefits, and alternatives of placement of a tunneled hemodialysis catheter inc luding, but not limited to, bleeding; infection; damage to surrounding tissues; injury to heart, lung s, great vessels; need for further interventions; potential for lung collapse and need for placement of chest tube; injury to heart, great vessels, blood clots, stroke are all possibilities and catheter dysfunction as well. Patient displayed understanding of the above stated plan and agreed to proceed as indicated. All questions were answered. Thank you for this interesting consult. KUNAL/WILLIAM Voice ID: [id number] Report ID: [id number]
--- NOTE | 2022-01-31 14:18 | RAD REPORT ---
EXAM DESCRIPTION: RAD - Fluoroscopy <1 Hour - 01/31/2022 2:01 pm FINDINGS: Five portable C-arm views were submitted from fluoroscopic assisted placement of a hemodia lysis catheter. No suspicious or unexpected finding. Fluoro time was 0.3 minutes. Cumulative dose was 5.44 mGy.
--- NOTE | 2022-01-31 14:20 | RAD REPORT ---
EXAM DESCRIPTION: RAD - Chest Single View - 01/31/2022 2:14 pm CLINICAL HISTORY: POST HD CATH PLACEMENT COMPARISON: Portable 01/25/2022 TECHNIQUE: AP portable chest image was obtained 01/31/2022 2:14 pm . FINDINGS: Lung volumes are low. Lung base atelectasis is present. Right-sided hemodialysis catheter has been placed. There is no pneumothorax. Long arm is in the mid S VC. Short arm is in the proximal SVC. Heart size and vasculature are normal for shallow inspiration portable exam. IMPRESSION: Right-sided HD catheter in good position. No pneumothorax.
[2022-01-31] MEDS: MIDODRINE HCL 5 MG TABLET PO SCH ×2 (16:11→20:21)
[2022-01-31] MEDS: ENOXAPARIN 30 MG/0.3 ML SQ SCH (16:11)
[2022-01-31] MEDS ORDERED: FUROSEMIDE 40 MG/4 ML VIAL IV ONE (19:00)
[2022-01-31] MEDS: ROSUVASTATIN 10 MG TAB PO SCH (20:21)
--- NOTE | 2022-02-01 00:54 | OP ---
Date of Procedure: 01/31/2022 Surgeon: Juan Daniel Lo MD, Brief History Of Present Illness: The patient is a 76-year-old male who comes in with end-stage anahy l disease in need of hemodialysis. Preoperative Diagnosis: Need for dialysis. Postoperative Diagnosis: Need for dialysis. Procedure Performed: Placement of 19 cm HemoSplit hemodialysis catheter, ultrasound fluoroscopic [employer] micro set utilized. Anesthesia: General endotracheal with local 0.25% Marcaine. Estimated Blood Loss: Less than 5 cc. Specimen: None. Findings: Fluoroscopic and ultrasound confirmed position of catheter. Dark red nonpulsatile blood r eturned at the end of procedure. Wire out called x2. Complication: None. Implants: 19 cm HemoSplit catheter. Disposition: Patient transferred to recovery room in good condition. Procedure In Detail: After informed consent was obtained, the patient was brought to the operating r oom and prepped and draped in the usual sterile fashion. After adequate anesthesia, patient was plac ed in steep Trendelenburg position. Using ultrasound guidance, cannulated the right internal jugular vein on first attempt. Dark red nonpulsatile blood returned and microwire was advanced at this poin t. Fluoroscopic guidance confirmed position of the confluence of the superior vena cava. At this po int, a small tommy incision was made at the insertion site and a microintroducer sheath, 5-[place] lepe th was advanced over the microwire. At this point, microwire was removed and standard wire advanced at this point. Fluoroscopic guidance confirmed the position of the wire at the confluence of the sup erior vena cava once again. At this point, I created a tunnel track inferior to the clavicle and mad e a small incision and then anesthetized the tract using a tunneling device to pass a 19 cm HemoSplit catheter into the insertion site at this point, and position it appropriately. At this point, seque ntial dilatation was performed using Seldinger technique over the standard wire and I passed the intr oducer sheath into the patient's right internal jugular vein without any evidence of complication. A t this point, I introduced the catheter under fluoroscopic guidance and placed it into the superior v leonides cava confluence. At this point, dark red nonpulsatile blood returned. Both ports pulled back da rk red non-pulsatile blood and were flushed quite easily with saline and then flushed these until com pletely clear with saline and packed with heparin super flush at this point. Fluoroscopic guidance c onfirmed the position of the catheter. I then secured the catheter to the patient's chest as well as closed the insertion site with the same set of 2-0 nylon suture and sterile dressing placed over top . The patient tolerated the procedure without any evidence of complication and transferred to PACU i n good condition. All counts were correct at the end of the case. KUNAL/WILLIAM Voice ID: [id number] Report ID: [id number]
[2022-02-01 06:10] LABS: Absolute Lymphocytes (CBC) 0.8 K/uL (0.7-4.9); Hematocrit 30.7 % (39.6-49.0); Lymphocytes % 7.1 % (15.3-44.8); MCV 92.2 fL (80-100); MPV 7.3 fL (7.6-11.3); RBC Red Blood Cell Count 3.33 M/uL (4.33-5.43)
[2022-02-01 06:23] LABS: Albumin 1.9 g/dL (3.4-5.0); Phosphorus 4.1 mg/dL (2.5-4.9); Potassium 4.3 mmol/L (3.5-5.1)
[2022-02-01 06:33] LABS: Albumin 1.9 g/dL (3.4-5.0); Bilirubin Total 2.4 mg/dL (0.2-1.0); Potassium 4.2 mmol/L (3.5-5.1); Protein, Total 4.9 g/dL (6.4-8.2)
[2022-02-01] MEDS: INSULIN -REGULAR HUMAN 50 UNIT/0.5 ML ML SQ SCH ×4 (07:30→20:37)
--- NOTE | 2022-02-01 08:46 | P.PN ---
Subjective Date of Service: 02/01/22 Primary Care Provider: unknown Chief Complaint: acute on chronic renal failure Subjective: New changes (tunnel cath in place) Review of Systems 10-point ROS is otherwise unremarkable Physical Examination - Vital Signs Temperature: 96.5 F Blood Pressure: 115/66 Pulse: 67 Respirations: 16 Pulse Ox (%): 95 - Physical Exam General: Alert, In no apparent distress HEENT: Atraumatic, PERRLA, EOMI Neck: Supple, JVD not distended Respiratory: Clear to auscultation bilaterally, Normal air movement Cardiovascular: Regular rate/rhythm, Normal S1 S2 Gastrointestinal: Normal bowel sounds, No tenderness Musculoskeletal: No tenderness Integumentary: No rashes Neurological: Normal speech, Normal tone, Normal affect Lymphatics: No axilla or inguinal lymphadenopathy Assessment And Plan - Current Problems (Diagnosis) (1) Acute on chronic renal failure Current Visit: Yes Status: Acute Plan: Have discussed the patient with Dr. Ward. Will start him on fluids. He has normal potassium. The patient has no palpations. Hopefully a few days of fluids will turn him around. He does not want a kent. Asked him to use a urinal so we can monitor his output. 9.9 Started on HD yesterday. Will await chair placement in Dr. Shepard's dialysis center. Have discussed his care with his [phone] Qualifiers: Acute renal failure type: unspecified Chronic kidney disease stage: stage 5, not on chronic dialysis Qualified Code(s): N17.9 - Acute kidney failure, unspecified; N18.5 - Chronic kidney disease, stage 5 (2) DM2 (diabetes mellitus, type 2) Current Visit: Yes Status: Acute Plan: He was on metformin. will hold that considering his kidney function. Check an a1c. Start him on sliding scale insulin. Will use an ADA diet on this patient Qualifiers: Diabetes mellitus [facility] insulin use: without [facility] use Diabetes mellitus complication status: without complication Qualified Code(s): E11.9 - Type 2 diabetes mellitus without complications (3) HTN (hypertension) Current Visit: Yes Status: Acute Plan: Normally on losartan per his last visit. Will hold that. Use prn hydralazine. He is currently hypotensive. Will adjust his medications as necessary Qualifiers: Hypertension type: primary hypertension Qualified Code(s): I10 - Essential (primary) hypertension Discharge Plan: Home Plan to discharge in: 48 Hours - Code Status/Comfort Care Code Status Assessed: No Physician Review: Patient Assessed, Agree with Above Assessment and Plan Critical Care: No Time Spent Managing PTS Care (In Minutes): 20
[2022-02-01] MEDS: GLUCERNA SHAKE 237 ML CAN PO SCH (09:16)
[2022-02-01] MEDS: MIDODRINE HCL 5 MG TABLET PO SCH ×3 (09:16→20:36)
--- NOTE | 2022-02-01 11:22 | P.PN ---
Nephrology note (S) Pt's tolerated yesterday's HD session overall although BP was low through most of HD despite IV Albumin and Midodrine dose so no significant UF performed. Pt denies dyspnea at rest but does have some shortwindedness with exertion. (O) Vitals reviewed in the EMR Gen: NAD, non tachypnec HEENT: Atraumatic, sclera anicteric Resp: b/l air entry, no rhonchi CVS: RRR, no loud murmurs appreciated Abd: Soft, mild to mod distention, NT Ext: No LE edema, shins are non tender Neuro: Awake, alert, responsive, non focal Labs reviewed in the EMR (A/P): 1. Stage III ARF per GRANT def with presenting Cr level > 4 mg/dl on likely underlying CKD NOS, with prior MAURIZIO earlier in the year. Cr level have not downward trended and while not progressively upward rising, there has not been any renal recovery indicating intrinsic injury and pt likely did suffer some ATN with relatively lower BP on presentation and recent use of diuretics/ARB reportedly at home. No hydro on imaging, no evidence of absence of renal blood flow on u/s with hx of large AAA and stent graft repair although a specific renal duplex study was not done. Held off initially on much volume challenge given reports of volume overload recently as OP and findings here with some effusions and ascites on imaging. With no clear renal recovery, the safest way for pt to discharge would be to do so on temporary HD while we monitor for signs of renal recovery as an OP as that may takes weeks or even longer. s/p TDC placement yesterday and initial HD, metab profile stable, pt reluctant to re-dialyze today and wants to wait until tmrw. Did consult CM for OP placement in ARF status. Cont to monitor UOP, cont to use Lasix scheduled/PRN to augment UOP. Cont to hold nephrotoxic agents, dose meds for reduced CrCl 2. Metab acidosis -bicarb deficit better after receiving bicarb load in dialysis 3. Pleural effusion NOS, ascites other. Unclear what is driving that process other than 3rd spacing in part due to low albumin levels, so did order 2D echo which does not show any significant LV dysfunction. He does have severe hypoalbuminemia but his Up/c was not indicating nephrotic range proteinuria although could be inaccurate. Will get 24h urine study. Serologies ordered by Dr. Pryor remain pending. Cont to monitor fluid status. Alpesh Miller MD, SHELLIN
[2022-02-01] MEDS: FUROSEMIDE 20 MG/ 2ML VIAL IV SCH ×2 (12:21→16:43)
[2022-02-01 13:17] LABS: UR PROTEIN 179.8 mg/dL (<11.9)
[2022-02-01] MEDS: ENOXAPARIN 30 MG/0.3 ML SQ SCH (16:43)
[2022-02-01] MEDS: ROSUVASTATIN 10 MG TAB PO SCH (20:35)
[2022-02-02] MEDS: INSULIN -REGULAR HUMAN 50 UNIT/0.5 ML ML SQ SCH ×4 (07:30→21:00)
[2022-02-02 08:03] LABS: Albumin 1.8 g/dL (3.4-5.0); Phosphorus 3.5 mg/dL (2.5-4.9); Potassium 4.2 mmol/L (3.5-5.1)
[2022-02-02] MEDS: FUROSEMIDE 20 MG/ 2ML VIAL IV SCH (08:49)
[2022-02-02] MEDS: NEPRO SHAKE 237 ML CAN PO SCH (08:49)
[2022-02-02] MEDS: MIDODRINE HCL 5 MG TABLET PO SCH ×3 (08:50→21:16)
[2022-02-02] MEDS ORDERED: ALBUMIN HUMAN 25% 100 ML IV SCH (11:00)
[2022-02-02] MEDS: ENOXAPARIN 30 MG/0.3 ML SQ SCH (17:54)
--- NOTE | 2022-02-02 19:31 | PREOPCON ---
Date of Consultation: 02/02/2022 Subjective: The patient is seen today on dialysis. The patient has 50 minutes left of the schedule treatment. He had 1 L of ultrafiltration, at that point blood pressure became elevated and the patie nt became tachycardic. On evaluation, the patient is having sinus tachycardia. However, the patient is also complaining of chills at this time. He states that he has been cold throughout this hospita lization. Reviewed vital signs, not sure that he has been febrile and he does have an elevated white blood cell count of 11.1, which has been present throughout the admission. He otherwise has tolerat ed the dialysis treatment well. Objective: Vital Signs: Blood pressure now dialysis is 170/77 with a pulse rate of 114, afebrile. Heart: Tachycardic, regular. Lungs: Grossly clear. Abdomen: Soft. Extremities: No edema. Laboratory Data: Reviewed. Current Medications: Reviewed. Impression: 1.Acute kidney injury likely from acute tubular necrosis, necessitating temporary hemodialysis which was to be continued in the outpatient setting. 2.Tachycardia. 3.Chills. 4.Leukocytosis. 5.Lower urinary tract symptoms. Plan: The patient will be given 250 mL of normal saline here at the end of dialysis treatment as the patient may have had an element of a volume depletion with a compensatory elevation of blood pressur e and heart rate. The patient does have chills and with a high heart rate, I am recommending the pat ient stay here in the hospital for further workup. The patient would benefit from a thyroid panel, b ut also for a sepsis, impending sepsis workup including UA and other diagnostics based on testing. The patient will need case management followup in regard to finalization of placement at the [facility] and the patient's next dialysis will likely be here tomorrow or if discharged, in the outpatient setting. Case discussed with primary attending, Dr. Blum, as well as dialysis nurse. /SEL Voice ID: [id number] Report ID: [id number]
[2022-02-02] MEDS: ROSUVASTATIN 10 MG TAB PO SCH (20:23)
[2022-02-03 05:11] LABS: Phosphorus 2.8 mg/dL (2.5-4.9); Potassium 4.3 mmol/L (3.5-5.1)
[2022-02-03 05:24] LABS: Thyroid Stimulating Hormone 4.27 uIU/mL (0.360-3.740)
[2022-02-03] MEDS: INSULIN -REGULAR HUMAN 50 UNIT/0.5 ML ML SQ SCH ×4 (07:30→21:00)
[2022-02-03] MEDS: MIDODRINE HCL 5 MG TABLET PO SCH ×3 (09:30→20:46)
[2022-02-03] MEDS: NEPRO SHAKE 237 ML CAN PO SCH (09:30)
[2022-02-03] MEDS ORDERED: ALBUMIN HUMAN 25% 100 ML IV ONE ×2 (13:00)
--- NOTE | 2022-02-03 14:07 | RAD REPORT ---
EXAM DESCRIPTION: RAD - Chest Single View - 02/03/2022 1:55 pm CLINICAL HISTORY: SOB, low O2 sats Chest pain. COMPARISON: Chest Single View dated 01/31/2022; Chest Single View dated 01/25/2022; Chest Single View da debbie 06/09/2021; Chest Single View dated 06/08/2021 FINDINGS: Portable technique limits examination quality. The lungs are underinflated with mild to moderate bilateral pulmonary opacities appearing slightly pr ogressive since prior study. This probably represents pulmonary edema or volume overload. The heart i s mildly enlarged. Right venous catheter its tip in the SVC.
[2022-02-03 15:39] LABS: Absolute Lymphocytes (CBC) 0.3 K/uL (0.7-4.9); Hematocrit 32.6 % (39.6-49.0); Lymphocytes % 3.9 % (15.3-44.8); MCV 92.1 fL (80-100); MPV 7.1 fL (7.6-11.3); RBC Red Blood Cell Count 3.54 M/uL (4.33-5.43)
[2022-02-03 16:11] LABS: Albumin 2.3 g/dL (3.4-5.0); Bilirubin Total 3.4 mg/dL (0.2-1.0); Magnesium 1.9 mg/dL (1.8-2.4); Phosphorus 2.6 mg/dL (2.5-4.9); Potassium 4.7 mmol/L (3.5-5.1); Protein, Total 5.3 g/dL (6.4-8.2)
[2022-02-03] MEDS ORDERED: Levofloxacin 750mg IV 750 MG/150 ML BAG IV ONE (17:00)
[2022-02-03] MEDS: ENOXAPARIN 30 MG/0.3 ML SQ SCH (17:16)
--- NOTE | 2022-02-03 17:16 | RAD REPORT ---
EXAM DESCRIPTION: CT - Chest Abd Pelvis Wo Con - 02/03/2022 4:51 pm CLINICAL HISTORY: Chest and abdomen pain. Abd pain/hypoxemia COMPARISON: Thorax Wo Con dated 06/04/2021; Abdomen Pelvis Wo Contrast dated 01/27/2022 TECHNIQUE: Limited noncontrast study was performed. All CT scans are performed using dose optimization technique as appropriate and may include automated exposure control or mA/KV adjustment according to patient size. FINDINGS: Mild linear atelectasis in both posterior lung bases.Trace bilateral pleural effusions.No intrathoracic adenopathy. The liver, spleen, pancreas, adrenal glands and kidneys are within normal limits. Mild ascites. No bowel obstruction seen. Nonobstructing left renal calculus. No pathologic lymphadeno sarah in the abdomen or pelvis. Very large abdominal aortic aneurysm with endograft in place. This ap pears unchanged compared to recent comparative examination. Multilevel spinal degenerative changes. IMPRESSION: Mild ascites. Nonobstructing left renal calculus. Aortic endograft is in place within a very large abdominal aortic aneurysm. No acute finding related to this suspected.
[2022-02-03] MEDS ORDERED: NA CHLORIDE 0.9% 1,000 ML ONE (17:50)
[2022-02-03] MEDS ORDERED: ACETAMINOPHEN 650MG/RECT SUPP PR ONE ×2 (17:53→17:54)
[2022-02-03] MEDS: Meropenem 500 MG in NA CHLORIDE 0.9% 100 ML IV SCH (18:00)
[2022-02-03 18:07] LABS: Arterial Blood Carboxyhemoglob 1.2 % (0-1.5); Blood Gas Oxyhemoglobin 92.5 % (94-97); Blood O2 Saturation 94.9 % (92-98.5)
--- NOTE | 2022-02-03 18:12 | PN ---
Date of Progress Note: 02/03/2022 Subjective: The patient is seen at the bedside. Last dialysis was yesterday and ultrafiltration ach ieved was approximately 700 mL. The patient had tachycardia and did receive 250 mL of normal saline at the end of treatment. Since that time, the patient has developed a worsening blood pressure trend . Blood pressure has been as low as 70 systolic sitting anywhere between 90s to 100s. He has also d eveloped some tachycardia and he is also tachypneic at this time. Workup is being undertaken for pos sible sepsis. Objective: Vital Signs: Manual blood pressures bilaterally were 94/44 on the left arm, 92/50 on the contralateral side. Pulse rate as stated 102, temperature 98.5. General: The patient is unable to complete full sentences. Heart: Tachycardic. Lungs: Decreased breath sounds at bases. Abdomen: Distended, tympanic, sluggish bowel sounds. Extremities: With no significant edema. Laboratory Data: CBC for today is pending. Serum chemistry was noted with potassium of 4.3, BUN and creatinine 37/4.22. The patient also has cortisol level as well as procalcitonin levels pending. U A has not been ordered. Current Medications: Reviewed. Impression: 1.Acute kidney injury with likely prolonged ATN, necessitating hemodialysis. 2.Suspected sepsis. 3.Abdominal distention. 4.Hypoxemic respiratory failure. Plan: The patient is having labs and imaging ordered by primary team. We would recommend broad-spec trum antibiotics as well as possible transfer to ICU. The patient's chest x-ray did show some worsen ing infiltrates; however, with the patient's labile blood pressures, we would recommend dialysis in t ICU setting the given patient's current instability. We would also to increase midodrine for the time being to 5 mg t.i.d.; however, the patient may need pressor support. Please avoid any further c olloid and crystalloid administration to avoid genevieve volume overload and worsening respiratory failur e. Case discussed with the patient as well as Dr. Blum, primary attending. SE/MODL Voice ID: [id number] Report ID: [id number]
[2022-02-03] MEDS ORDERED: HEPARIN/D5W 25,000 UNIT/500 ML BAG IV SCH (19:00)
[2022-02-03] MEDS ORDERED: NA CHLORIDE 0.9% 250 ML IV ONE ×2 (19:00→20:00)
[2022-02-03] MEDS: NOREPINEPHRINE 4 MG in D5W 250 ML IV SCH ×2 (19:30→22:38)
[2022-02-03] MEDS ORDERED: NOREPINEPHRINE BITARTRATE/D5W 4 MG/250 ML BAG IV ONE (19:31)
[2022-02-03] MEDS ORDERED: NA CHLORIDE 0.9% 100 ML ONE (19:36)
[2022-02-03] MEDS ORDERED: NOREPINEPHRINE 4 MG/4 ML VIAL ONE ×2 (19:38→22:32)
[2022-02-03] MEDS ORDERED: D5W 250 ML IV ONE ×2 (19:42→22:32)
[2022-02-03] MEDS: ROSUVASTATIN 10 MG TAB PO SCH (20:47)
[2022-02-03] MEDS: DEXTROSE 10%-WATER 500 ML IV BAG IV PRN ×2 (21:01→21:36)
[2022-02-03 21:34] LABS: Specific Gravity 1.014 (1.005-1.030); Urine Bacteria >50 /HPF (<20); Urine Bilirubin NEGATIVE (Negative); Urine Blood 1+ (Negative); Urine Clarity Extremely Turbid (Clear); Urine Color Dark-Orange (Yellow); Urine Glucose NEGATIVE (Negative); Urine Protein 2+ (Negative); Urine RBC >50 /HPF (None Seen); Urine Urobilinogen Normal (Normal); Urine WBC Clump Many /HPF (None Seen); Urine Yeast with Hyphae Moderate /HPF (None Seen); Urine pH 5.5 (5.0-7.0)
[2022-02-03] MEDS: D5W 1,000 ML with NA BICARB 8.4% 150 MEQ IV SCH ×2 (21:47)
[2022-02-04] MEDS: NOREPINEPHRINE 4 MG in D5W 250 ML IV SCH ×3 (02:03→06:32)
[2022-02-04] MEDS ORDERED: NOREPINEPHRINE BITARTRATE/D5W 4 MG/250 ML BAG IV ONE ×2 (02:09→03:45)
--- NOTE | 2022-02-04 05:25 | P.PN ---
Subjective Date of Service: 02/02/22 Patient's discharge held. Patient is weak and not really eating much. There was concern for patient's blood pressure decreasing after dialysis. After giving some IV fluids back to patient his blood pressure is improved. Review of Systems 10-point ROS is otherwise unremarkable Physical Examination - Physical Exam General: Alert, Oriented x3, Other Respiratory: Diminished Cardiovascular: Regular rate/rhythm, No murmurs Gastrointestinal: Normal bowel sounds, Soft and benign, Non-distended Musculoskeletal: No clubbing, No swelling Neurological: Other ( Patient with generalized weakness) Assessment & Plan - Problems (Diagnosis) (1) ESRD (end stage renal disease) Current Visit: Yes Status: Acute (2) Weakness Current Visit: Yes Status: Acute (3) Anorexia Current Visit: Yes Status: Acute (4) DM2 (diabetes mellitus, type 2) Current Visit: Yes Status: Acute Qualifiers: Diabetes mellitus parts counterman insulin use: without parts counterman use Diabetes mellitus complication status: without complication Qualified Code(s): E11.9 - Type 2 diabetes mellitus without complications (5) HTN (hypertension) Current Visit: Yes Status: Acute Qualifiers: Hypertension type: primary hypertension Qualified Code(s): I10 - Essential (primary) hypertension - Plan Plan: 1. arranging for discharge with outpatient dialysis 2. Continue with physical therapy 3. encourage increasing nutrition 4. Monitor hemodynamics closely 5. Repeat labs 6. spoke with family and home discharge until he wants limited better. May need to arrange for home health 7. Gi DVT prophylaxis Discharge Plan: Home Plan to discharge in: 24 Hours - Advance Directives Does patient have a Living Will: No Does patient have a Durable POA for Healthcare: Yes - Code Status/Comfort Care Code Status: Full Code Physician Review: Patient Assessed, Agree with Above Assessment and Plan Critical Care: No Time Spent Managing PTS Care (In Minutes): 35
[2022-02-04] MEDS ORDERED: NA CHLORIDE 0.9% 250 ML IV ONE (05:27)
[2022-02-04 05:38] LABS: Albumin 1.8 g/dL (3.4-5.0); Phosphorus 3.1 mg/dL (2.5-4.9); Potassium 4.4 mmol/L (3.5-5.1)
--- NOTE | 2022-02-04 05:38 | P.PN ---
Date of Service: 02/03/22 Subjective After getting back from CT, patient done out of bed to urinate. He suddenly became obtunded. Patient was hypoxic and hypotensive. Unable to get a blood pressure. Patient had a very strong pulse. Patient was placed on a non- rebreather. His mentation returned back to normal. Had to move patient to ICU. started on Levophed. Spoke with family and patient is a full code. Patient with purulent urine output after Zambrano catheter placement. Appreciate assistance with ER with central line placement. Spoke with Nephrology and gave patient a fluid bolus 250 cc NS. Continue with Levophed. Will get echocardiogram and cardiology consultation. CT chest abdomen and pelvis did not remove meal and significant abnormalities. 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 Hopefully, we can get patient turned around from sepsis. He is on Levaquin and meropenem. Review of Systems 10-point ROS is otherwise unremarkable Physical Examination - Physical Exam General: Alert, Oriented x3, Other Respiratory: Diminished Cardiovascular: Regular rate/rhythm, No murmurs Gastrointestinal: Normal bowel sounds, Soft and benign, Non-distended Musculoskeletal: No clubbing, No swelling Neurological: Other ( Patient with generalized weakness) Assessment & Plan - Problems (Diagnosis) (1) septic shock Current Visit: Yes Status: Acute (2) ESRD (end stage renal disease) Current Visit: Yes Status: Acute (3) UTI Current Visit: Yes Status: Acute (4) DM2 (diabetes mellitus, type 2) Current Visit: Yes Status: Acute Qualifiers: Diabetes mellitus residential insulin use: without long term care pharmacist use Diabetes mellitus complication status: without complication Qualified Code(s): E11.9 - Type 2 diabetes mellitus without complications (5) HTN (hypertension) Current Visit: Yes Status: Acute Qualifiers: Hypertension type: primary hypertension Qualified Code(s): I10 - Essential (primary) hypertension - Plan 1. Continue with broad-spectrum antibiotic coverage 2. continue with IV fluid boluses -250 cc NS as needed; patient with end-stage renal disease and have to be careful with fluid boluses. 3. cardiology consultation and echocardiogram 4. replace IV bicarb 5. strict blood sugar control 6. Continue with IV bicarb for lactic acidosis 7. Gi DVT prophylaxis Discharge Plan: SNF Plan to discharge in: >3 days - Advance Directives Does patient have a Living Will: No Does patient have a Durable POA for Healthcare: Yes - Code Status/Comfort Care Code Status: Full Code Physician Review: Patient Assessed, Agree with Above Assessment and Plan Critical Care: No Time Spent Managing PTS Care (In Minutes): 120
[2022-02-04] MEDS ORDERED: D5W 250 ML IV ONE (06:37)
[2022-02-04] MEDS ORDERED: NOREPINEPHRINE 4 MG/4 ML VIAL ONE (06:37)
[2022-02-04 06:51] LABS: Absolute Lymphocytes (CBC) 0.4 K/uL (0.7-4.9); Hematocrit 28.1 % (39.6-49.0); Lymphocytes % 1.8 % (15.3-44.8); MCV 90.9 fL (80-100); MPV 7.6 fL (7.6-11.3); RBC Red Blood Cell Count 3.09 M/uL (4.33-5.43)
[2022-02-04] MEDS: INSULIN -REGULAR HUMAN 50 UNIT/0.5 ML ML SQ SCH ×4 (07:30→20:25)
[2022-02-04 07:48] LABS: Blood Morphology Comment NOTED (NOT SEEN); Hypochromasia 1+; Platelet Estimate DECR
[2022-02-04] MEDS: NEPRO SHAKE 237 ML CAN PO SCH (09:33)
[2022-02-04] MEDS: MIDODRINE HCL 5 MG TABLET PO SCH ×3 (09:33→20:25)
[2022-02-04] MEDS ORDERED: SODIUM CHLORIDE 0.9% 10ML INJ IV PRN (09:44)
[2022-02-04] MEDS: NOREPINEPHRINE 8 MG in D5W 250 ML IV SCH ×3 (09:51→18:07)
[2022-02-04] MEDS ORDERED: PANTOPRAZOLE 40 MG INJ IVP ONE (10:00)
[2022-02-04] MEDS ORDERED: HYDROCORTISONE SUC 100 MG INJ IV ONE (10:00)
--- NOTE | 2022-02-04 10:39 | P.PN ---
Date of Service: 02/04/22 Subjective 02/04 02/[address], patient done out of bed to urinate. He suddenly became obtunded. Patient was hypoxic and hypotensive. Unable to get a blood pressure. Patient had a very strong pulse. Patient was placed on a non- rebreather. His mentation returned back to normal. Had to move patient to ICU. started on Levophed. Spoke with family and patient is a full code. Patient with purulent urine output after Zambrano catheter placement. Appreciate assistance with ER with central line placement. Spoke with Nephrology and gave patient a fluid bolus 250 cc NS. Continue with Levophed. Will get echocardiogram and cardiology consultation. CT chest abdomen and pelvis did not remove meal and significant abnormalities. 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 Hopefully, we can get patient turned around from sepsis. He is on Levaquin and meropenem. Review of Systems 10-point ROS is otherwise unremarkable Physical Examination - Physical Exam General: Alert, Oriented x3, Other Respiratory: Diminished Cardiovascular: Regular rate/rhythm, No murmurs Gastrointestinal: Normal bowel sounds, Soft and benign, Non-distended Musculoskeletal: No clubbing, No swelling Neurological: Other ( Patient with generalized weakness) Assessment & Plan - Problems (Diagnosis) (1) septic shock Current Visit: Yes Status: Acute (2) ESRD (end stage renal disease) Current Visit: Yes Status: Acute (3) UTI Current Visit: Yes Status: Acute (4) DM2 (diabetes mellitus, type 2) Current Visit: Yes Status: Acute Qualifiers: Diabetes mellitus intermediate card tender insulin use: without intermediate card tender use Diabetes mellitus complication status: without complication Qualified Code(s): E11.9 - Type 2 diabetes mellitus without complications (5) HTN (hypertension) Current Visit: Yes Status: Acute Qualifiers: Hypertension type: primary hypertension Qualified Code(s): I10 - Essential (primary) hypertension - Plan 1. Continue with broad-spectrum antibiotic coverage 2. continue with IV fluid boluses -250 cc NS as needed; patient with end-stage renal disease and have to be careful with fluid boluses. 3. cardiology consultation and echocardiogram 4. replace IV bicarb 5. strict blood sugar control 6. Continue with IV bicarb for lactic acidosis 7. Gi DVT prophylaxis Discharge Plan: SNF Plan to discharge in: >3 days - Advance Directives Does patient have a Living Will: No Does patient have a Durable POA for Healthcare: Yes - Code Status/Comfort Care Code Status: Full Code Physician Review: Patient Assessed, Agree with Above Assessment and Plan Critical Care: No Time Spent Managing PTS Care (In Minutes): 120
[2022-02-04 11:12] LABS: Absolute Lymphocytes (CBC) 0.6 K/uL (0.7-4.9); Hematocrit 30.4 % (39.6-49.0); Lymphocytes % 2.3 % (15.3-44.8); MCV 92.8 fL (80-100); MPV 8.2 fL (7.6-11.3); RBC Red Blood Cell Count 3.27 M/uL (4.33-5.43)
--- NOTE | 2022-02-04 11:54 | P.CNS ---
Date of Consult: 02/04/22 Reason for Consult: Hypotension renal failure Primary Care Provider: unknown Chief Complaint: acute on chronic renal failure History of Present Illness: Patient is 76 years of age has been recently been depressed out the younger son who just has been good also lost weight developed more shortness of breath apparently has a history of renal insufficiency got worse is currently on dialysis no prior history of smoking recently had an acute episode currently on heparin Allergies No Known Allergies Allergy (Unverified 06/04/21 12:42) Home Medications: Amiodarone HCl [Cordarone*] 200 mg PO BID 06/05/21 Amlodipine [Norvasc*] 10 mg PO DAILY 06/05/21 Losartan Potassium 50 mg PO BID 06/05/21 Metformin HCl 1,000 mg PO BID 06/05/21 Metoprolol Tartrate 25 mg PO BID 06/05/21 Rosuvastatin [Crestor*] 10 mg PO BEDTIME 06/05/21 Albuterol Neb [Proventil 0.083% Neb Soln] 2.5 mg NEB Q6HP PRN amp 06/09/21 Apixaban [Eliquis *] 2.5 mg PO BID tablet 06/09/21 Baricitinib [Olumiant] 2 mg PO DAILY tablet 06/09/21 Docusate [Colace Cap*] 100 mg PO BID cap 06/09/21 Insulin -Regular Human [Novolin -R*] See Protocol SQ ACHS ml 06/09/21 Nepro Shake [Nepro*] 240 ml PO TID can 06/09/21 Ondansetron [Zofran*] 4 mg IV Q6HP PRN vial 06/09/21 dexAMETHasone [Decadron*] 4 mg IV Q8HR vial 06/09/21 hydroCHLOROthiazide [Hydrochlorothiazide*] 12.5 mg PO DAILY cap 06/09/21 levoFLOXacin [Levaquin*] 750 mg PO Q48H tab 06/09/21 Cholecalciferol (Vitamin D3) [Vitamin D3] 1 cap PO DAILY 01/26/22 Melatonin 3 mg PO BEDTIME 01/26/22 - Past Medical/Surgical History Diabetic: Yes -: Hypertension -: DM2, [id number] -: Peripheral vascular disease -: Aortobifem bypass - Social History Alcohol use: Yes CD- Drugs: No Caffeine use: Yes Review of Systems 10-point ROS is otherwise unremarkable General: Weakness Respiratory: Shortness of Breath Physical Examination Temp Pulse Resp BP Pulse Ox 98 F 84 28 H 113/56 L 95 02/04/22 08:00 02/04/22 11:30 02/04/22 11:30 02/04/22 11:30 02/04/22 11:30 General: Alert, In no apparent distress, Oriented x3, Mild distress Respiratory: Clear to auscultation bilaterally, Diminished Cardiovascular: Normal pulses (2+), Normal S1 S2, Edema - Problems (1) Shock Current Visit: Yes Status: Acute Plan: Patient is in shock acute on chronic renal failure on dialysis appears to be hypoxic by arterial blood gases probably septic his white count is elevated with bandemia anion gap is elevated add vancomycin DC levofloxacin chest x-ray diminished lung volumes normal left ventricular ejection fraction patient is on hydrocortisone was also started on heparin possibility of pulmonary embolism patient is currently 97% on 4 L we will start patient on Eliquis for now till able to perform CT pulmonary angiogram or VQ scan also ordered lower extremity Doppler
[2022-02-04] MEDS ORDERED: VANCOMYCIN 2 GM in NA CHLORIDE 0.9% 500 ML IVPB ONE (13:00)
[2022-02-04] MEDS ORDERED: VANCOMYCIN 1 GM in NA CHLORIDE 0.9% 250 ML IVPB SCH (13:00)
[2022-02-04] MEDS: APIXABAN 5 MG TABLET PO SCH ×2 (13:38→20:25)
[2022-02-04] MEDS: HYDROCORTISONE SUC 100 MG INJ IV SCH (16:49)
[2022-02-04] MEDS: Meropenem 500 MG in NA CHLORIDE 0.9% 100 ML IV SCH (17:11)
[2022-02-04] MEDS: ROSUVASTATIN 10 MG TAB PO SCH (20:24)
--- NOTE | 2022-02-04 20:58 | CON ---
History Of Present Illness: This is a 76-year-old male I was consulted for urosepsis and septic shoc k. Patient coming in on January 25 with weak, tired, and poor appetite. Creatinine level went up t o 5.3. The patient is not a good historian. Most of the history was obtained through medical record s. The patient was diagnosed with acute on chronic renal failure, diabetes mellitus, hypertension. Dialysis catheter was placed January 31. I was consulted to manage urinary tract infection and seps is. Patient is currently getting vancomycin and meropenem, which was started on 02/03. The patient was also on Levophed. Feels slightly better today. Denies any chest pain, back pain, abdominal pain . Past Medical History: Diabetes mellitus, hypertension, chronic kidney disease, peripheral vascular d isease, aortobifem bypass. Social History: Nondrinker. Family History: Noncontributory. Medications: Meropenem and vancomycin. See MAR for other medications. Allergies: NO KNOWN DRUG ALLERGIES. Review of Systems: A 10-point review was performed. Physical Examination: General: This is a 76-year-old male, lying in ICU bed 7, not in any acute distress. HEENT: Unremarkable. Neck: Supple. Lungs: Basal crackles. Heart: S1, S2. Regular. Abdomen: Mildly distended. Bowel sounds present. Extremities: 1+ edema. Laboratory Data: Shows WBC 24.8, hemoglobin 9.8, platelets 112. Chemistry shows sodium 139, potassi um 4.4, chloride , bicarb 22, BUN 41, creatinine 5.3, glucose is 150. Lactic acid is 7.1, albumin is 1.8. Procal is 42. Chest x-ray shows bilateral basal small atelectasis. No pneumothorax . Dialysis catheter in place. CT abdomen and pelvis showed on 02/03, the patient has mild ascites, nonobstructing left renal calculus, aortic endograft is in place with a very large abdominal aortic a neurysm. Assessment And Plan: A 76-year-old male with acute on chronic renal failure, diabetes mellitus, and hypertension, developing leukocytosis. Blood cultures are showing gram-positive cocci. We will cont inue current antibiotic treatment. Pneumonia versus pulmonary edema, anemia of chronic disease, thro mbocytopenia, septic shock, severe protein-calorie malnourishment. Continue current treatment. Thank you for consult. We will follow the patient as needed. NF/MODL Voice ID: [id number] Report ID: [id number]
[2022-02-04] MEDS ORDERED: PANTOPRAZOLE 40 MG INJ IVP SCH (21:00)
--- NOTE | 2022-02-04 21:02 | RAD REPORT ---
EXAM DESCRIPTION: USExtrem Venous W Compress Bil02/04/2022 8:52 pm CLINICAL HISTORY: Leg pain COMPARISON: none FINDINGS: Echogenic material consistent with thrombus is present within the right popliteal vein. The vein is not compressible. This is consistent with thrombus. The common femoral, superficial femoral, left popliteal and posterior tibial veins bilaterally are co mpressible and demonstrate augmentation. Doppler demonstrates good flow. Grayscale, color and spectral analysis performed on all vessels IMPRESSION: Small amount of thrombus within the right popliteal vein which appears acute or subacute .
--- NOTE | 2022-02-04 21:50 | P.PN ---
Date of Service: 02/04/22 Vital Signs Temp Pulse Resp BP Pulse Ox 96.9 F 77 21 H 92/52 L 96 02/04/22 20:00 02/04/22 21:15 02/04/22 21:15 02/04/22 21:15 02/04/22 21:15 Medications Acetaminophen (Acetaminophen 500 Mg Tab) 500 mg PO Q6H PRN PRN Reason: Pain scale 5-7 (Moderate) Last Admin: 02/03/22 15:50 Dose: 500 mg Apixaban (Apixaban 5 Mg Tablet) 5 mg PO BID [facility] Last Admin: 02/04/22 20:25 Dose: 5 mg Dextrose (Dextrose 10%-Water 500 Ml Iv Bag) 125 ml IV PRN PRN; Protocol PRN Reason: HYPOGLYCEMIA Last Admin: 02/03/22 21:36 Dose: 125 ml Enteral Nutritional Formula (Nepro Shake 237 Ml Can) 237 ml PO DAILY [facility] Last Admin: 02/04/22 09:33 Dose: 237 ml Glucagon (Glucagon 1 Mg/Vial) 1 mg IM 1X PRN; Protocol PRN Reason: HYPOGLYCEMIA Heparin Sodium (Porcine) (Heparin 1,000 Unit/Ml Vial) 4,000 unit IV EVERY HD PRN PRN Reason: AFTER EACH Hydralazine HCl (Hydralazine Hcl 20 Mg/Ml Vial) 10 mg IV Q6HP PRN PRN Reason: HIGHBP Hydrocortisone Sodium Succinate (Hydrocortisone Suc 100 Mg Inj) 50 mg IV Q8HR [facility] Last Admin: 02/04/22 16:49 Dose: 50 mg Albumin Human (Albumin 25%) 100 mls @ 100 mls/hr IV EVERY HD [facility] Meropenem 500 mg/ Sodium (Chloride) 100 mls @ 200 mls/hr IV Q24H [facility] Last Admin: 02/04/22 17:11 Dose: 100 mls Sodium Bicarbonate 150 meq/ (Dextrose/Water) 1,150 mls @ 30 mls/hr IV .[id number] [facility] Last Admin: 02/03/22 21:47 Dose: 1,150 mls Norepinephrine Bitartrate 8 mg (/ Dextrose) 258 mls @ 19.581 mls/hr IV TITR [facility]; Protocol Last Admin: 02/04/22 18:07 Dose: 0.15 mcg/kg/min, 29.4 mls/hr Vancomycin HCl 1 gm/ Sodium (Chloride) 250 mls @ 250 mls/hr IVPB AFTER EACH DIALYSIS [facility] Insulin Human Regular (Insulin -Regular Human 50 Unit/0.5 Ml Ml) 0 unit SQ ACHS SHANNEN; Protocol Last Admin: 02/04/22 20:25 Dose: Not Given Midodrine (Midodrine Hcl 5 Mg Tablet) 2.5 mg PO TID [facility] Last Admin: 02/04/22 20:25 Dose: 2.5 mg Pantoprazole Sodium (Pantoprazole 40 Mg Inj) 40 mg IVP DAILY [facility]; Protocol Rosuvastatin Calcium (Rosuvastatin 10 Mg Tab) 10 mg PO BEDTIME [facility] Last Admin: 02/04/22 20:24 Dose: 10 mg Sodium Chloride (Sodium Chloride 0.9% 10ml Inj) 10 ml IV UD PRN PRN Reason: Diluant Microbiology Results 01/25/22 16:15 Clean Catch Urine Agate Count - Final <10,000 CFU/ML. 01/25/22 16:15 Clean Catch Urine - Final MIXED JAYSON. Assessment/ Plan: Nephrology No dyspnea No chest pain Weakness and fatigue Anorexia No acute events overnight Vitals, medications, blood work and imaging reviewed in the chart. NAD. NCAT. MMM. Neck supple. Normal respiratory effort. RRR. Abd ND. No C/C. LE Edema 1-2+. No rash. AAO. Normal speech. RIJ CVC. Zambrano with dark urine. MAURIZIO likely ATN CKD III with proteinuria -No NSAIDs -HD prn Hyponatremia -Encourage nutriton -HD prn Hypomagnesemia -Replete prn DM II with CKD -RISS Severe malnutrition with anorexia -IV Albumin prn -Encourage nutrition Anemia in chronic illness Thrombocytopenia -Monitor CBC GNR Sepsis/ Septic Shock Acute GNR cystitis -Continue Abx -Follow up cultures -Continue pressor support Greater than 30min patient care
[2022-02-05] MEDS: HYDROCORTISONE SUC 100 MG INJ IV SCH ×3 (01:06→16:32)
[2022-02-05 05:19] LABS: Absolute Lymphocytes (CBC) 0.5 K/uL (0.7-4.9); Hematocrit 26.2 % (39.6-49.0); MCV 89.7 fL (80-100); MPV 7.9 fL (7.6-11.3); RBC Red Blood Cell Count 2.92 M/uL (4.33-5.43)
[2022-02-05] MEDS: NOREPINEPHRINE 8 MG in D5W 250 ML IV SCH (05:30)
[2022-02-05 05:48] LABS: Albumin 1.7 g/dL (3.4-5.0); Bilirubin Total 4.5 mg/dL (0.2-1.0); Magnesium 1.7 mg/dL (1.8-2.4); Phosphorus 3.5 mg/dL (2.5-4.9); Potassium 4.8 mmol/L (3.5-5.1); Protein, Total 4.5 g/dL (6.4-8.2); Uric Acid 6.8 mg/dL (3.5-7.2)
[2022-02-05] MEDS: INSULIN -REGULAR HUMAN 50 UNIT/0.5 ML ML SQ SCH ×4 (07:30→21:00)
--- NOTE | 2022-02-05 08:10 | P.PN ---
Subjective Date of Service: 02/05/22 Primary Care Provider: unknown Chief Complaint: acute on chronic renal failure Subjective: New changes (sepsis, on levophed, vanc with HD and meropenem) Review of Systems 10-point ROS is otherwise unremarkable General: Weakness, Malaise Physical Examination - Vital Signs Temperature: 98.3 F Blood Pressure: 110/61 Pulse: 79 Respirations: 25 Pulse Ox (%): 96 - Physical Exam General: Alert, In no apparent distress, Mild distress HEENT: Atraumatic, PERRLA, EOMI Neck: Supple, JVD not distended Respiratory: Clear to auscultation bilaterally, Normal air movement Cardiovascular: Regular rate/rhythm, Normal S1 S2 Gastrointestinal: Normal bowel sounds, No tenderness Musculoskeletal: No tenderness, Swelling (of the right arm same side as his catheter) Integumentary: No rashes Neurological: Normal speech, Normal tone, Normal affect Lymphatics: No axilla or inguinal lymphadenopathy Assessment And Plan - Current Problems (Diagnosis) (1) Septic shock Current Visit: Yes Status: Acute Plan: on Vanc and meropenem. will order a doppler on his left arm. Will discuss the case with Dr. Lo Continue levophed and fluids. per Dr. Cabral (2) DM2 (diabetes mellitus, type 2) Current Visit: Yes Status: Acute Plan: He was on metformin. will hold that considering his kidney function. Check an a1c. Start him on sliding scale insulin. Will use an ADA diet on this patient Qualifiers: Diabetes mellitus intermediate insulin use: without wash driller use Diabetes mellitus complication status: without complication Qualified Code(s): E11.9 - Type 2 diabetes mellitus without complications (3) HTN (hypertension) Current Visit: Yes Status: Acute Plan: Normally on losartan per his last visit. Will hold that. Use prn hydralazine. He is currently hypotensive. Will adjust his medications as necessary Qualifiers: Hypertension type: primary hypertension Qualified Code(s): I10 - Essential (primary) hypertension (4) ESRD (end stage renal disease) Current Visit: Yes Status: Chronic Plan: continue dialysis. Per Dr. Ward Discharge Plan: Home Plan to discharge in: Greater than 2 days - Code Status/Comfort Care Code Status Assessed: No Physician Review: Patient Assessed, Agree with Above Assessment and Plan Critical Care: Yes Time Spent Managing PTS Care (In Minutes): 25
[2022-02-05] MEDS: APIXABAN 5 MG TABLET PO SCH ×2 (08:59→21:28)
[2022-02-05] MEDS: MIDODRINE HCL 5 MG TABLET PO SCH ×3 (08:59→21:28)
[2022-02-05] MEDS: PANTOPRAZOLE 40 MG INJ IVP SCH (08:59)
[2022-02-05] MEDS: NEPRO SHAKE 237 ML CAN PO SCH (09:00)
[2022-02-05] MEDS: D5W 1,000 ML with NA BICARB 8.4% 150 MEQ IV SCH ×2 (12:03)
--- NOTE | 2022-02-05 12:10 | PN ---
Subjective: The patient is lying in bed in ICU. Family by the bedside. No bowel movements since ye . The patient has very small amount of urine output, which is dark in color possible and gett ing onto dialysis. The patient denies any discomfort at this time. Objective: Vital Signs: Temperature 98.3, pulse 79, respiration 25, blood pressure 110/60. Lungs: Basal crackles. Heart: S1, S2. Regular. Abdomen: Bowel sounds present. Soft, nontender. Extremity: 2+ edema. Laboratory Data: Shows WBC 13.6, hemoglobin 8.9, platelets are 83. Chemistry shows sodium 135, pota ssium 4.8, chloride 98, bicarb 27, BUN 50, creatinine 5.4, glucose is 113, bilirubin is 1.7, AST is 3 15, ALT is 111. Micro data showing urine culture gram-negative rods, sensitivity and specificity pen ding. Blood cultures are also growing gram-negative rods with sensitivity and specificity pending. The patient is currently on meropenem and vancomycin. Assessment And Plan: Bacteremia and urinary tract infection secondary to gram-negative rods. The geovanna moore is currently on meropenem. Gram stain showing gram-positive cocci in blood, most likely a cont aminant pneumonia versus pulmonary edema, end-stage renal disease, thrombocytopenia, severe protein-c alorie malnourishment, septic shock improving. The patient is coming off his Levophed. We will cont inue current treatment, consider long-term acute care for this patient. NF/MODL Voice ID: [id number] Report ID: [id number]
--- NOTE | 2022-02-05 13:04 | RAD REPORT ---
EXAM DESCRIPTION: US - UPPER EXTREMITY VENOUS UNILATE - 02/05/2022 12:54 pm CLINICAL HISTORY: Swelling of Right Arm Right arm swelling. COMPARISON: Extrem Venous W Compress Timur dated 02/04/2022 FINDINGS: Right upper extremity venous system was interrogated with Doppler technique. Small amount of partial thrombus seen in the right cephalic vein. Elsewhere, no DVT evident. IMPRESSION: Small amount of partial thrombus in the right cephalic vein. No additional DVT evident.
[2022-02-05] MEDS ORDERED: Levofloxacin500mg IV 500 MG/100 ML BAG IV SCH (16:09)
[2022-02-05] MEDS ORDERED: VANCOMYCIN 1 GM in NA CHLORIDE 0.9% 250 ML IVPB SCH (17:00)
[2022-02-05] MEDS: Meropenem 500 MG in NA CHLORIDE 0.9% 100 ML IV SCH (18:00)
[2022-02-05] MEDS ORDERED: ALBUMIN HUMAN 25% 200 ML IV ONE (18:00)
[2022-02-05] MEDS: ASPIRIN EC 81 MG TAB PO SCH (18:01)
[2022-02-05] MEDS: ROSUVASTATIN 10 MG TAB PO SCH (21:28)
[2022-02-05] MEDS ORDERED: ALBUMIN HUMAN 25% 100 ML IV ONE (23:16)
--- NOTE | 2022-02-05 23:32 | P.PN ---
Date of Service: 02/05/22 Vital Signs Temp Pulse Resp BP Pulse Ox 97.0 F 82 20 106/66 96 02/05/22 16:00 02/05/22 22:45 02/05/22 22:45 02/05/22 22:45 02/05/22 22:45 Medications Acetaminophen (Acetaminophen 500 Mg Tab) 500 mg PO Q6H PRN PRN Reason: Pain scale 5-7 (Moderate) Last Admin: 02/03/22 15:50 Dose: 500 mg Apixaban (Apixaban 5 Mg Tablet) 5 mg PO BID [facility] Last Admin: 02/05/22 21:28 Dose: 5 mg Aspirin (Aspirin Ec 81 Mg Tab) 81 mg PO DAILY [facility] Last Admin: 02/05/22 18:01 Dose: 81 mg Dextrose (Dextrose 10%-Water 500 Ml Iv Bag) 125 ml IV PRN PRN; Protocol PRN Reason: HYPOGLYCEMIA Last Admin: 02/03/22 21:36 Dose: 125 ml Enteral Nutritional Formula (Nepro Shake 237 Ml Can) 237 ml PO DAILY [facility] Last Admin: 02/05/22 09:00 Dose: 237 ml Glucagon (Glucagon 1 Mg/Vial) 1 mg IM 1X PRN; Protocol PRN Reason: HYPOGLYCEMIA Heparin Sodium (Porcine) (Heparin 1,000 Unit/Ml Vial) 4,000 unit IV EVERY HD PRN PRN Reason: AFTER EACH Hydralazine HCl (Hydralazine Hcl 20 Mg/Ml Vial) 10 mg IV Q6HP PRN PRN Reason: HIGHBP Hydrocortisone Sodium Succinate (Hydrocortisone Suc 100 Mg Inj) 50 mg IV Q8HR [facility] Last Admin: 02/05/22 16:32 Dose: 50 mg Albumin Human (Albumin 25%) 100 mls @ 100 mls/hr IV EVERY HD [facility] Meropenem 500 mg/ Sodium (Chloride) 100 mls @ 200 mls/hr IV Q24H [facility] Last Admin: 02/05/22 18:00 Dose: 100 mls Sodium Bicarbonate 150 meq/ (Dextrose/Water) 1,150 mls @ 30 mls/hr IV .[id number] [facility] Last Admin: 02/05/22 12:03 Dose: 1,150 mls Norepinephrine Bitartrate 8 mg (/ Dextrose) 258 mls @ 19.581 mls/hr IV TITR [facility]; Protocol Last Titration: 02/05/22 16:30 Dose: 0.05 mcg/kg/min, 9.8 mls/hr Vancomycin HCl 1 gm/ Sodium (Chloride) 250 mls @ 250 mls/hr IVPB AFTER EACH DIALYSIS [facility] Albumin Human (Albumin 25%) 100 mls @ 100 mls/hr IV 1X ONE Stop: 02/06/22 00:15 Insulin Human Regular (Insulin -Regular Human 50 Unit/0.5 Ml Ml) 0 unit SQ ACHS SHANNEN; Protocol Last Admin: 02/05/22 21:00 Dose: Not Given Midodrine (Midodrine Hcl 5 Mg Tablet) 5 mg PO TID SHANNEN Pantoprazole Sodium (Pantoprazole 40 Mg Inj) 40 mg IVP DAILY SHANNEN; Protocol Last Admin: 02/05/22 08:59 Dose: 40 mg Rosuvastatin Calcium (Rosuvastatin 10 Mg Tab) 10 mg PO BEDTIME SHANNEN Last Admin: 02/05/22 21:28 Dose: 10 mg Sodium Chloride (Sodium Chloride 0.9% 10ml Inj) 10 ml IV UD PRN PRN Reason: Diluant Microbiology Results 01/25/22 16:15 Clean Catch Urine [place] Count - Final <10,000 CFU/ML. 01/25/22 16:15 Clean Catch Urine - Final MIXED JAYSON. Assessment/ Plan: Nephrology No dyspnea No chest pain Weakness and fatigue Anorexia Poor urine output in the setting of worsening hypotension No acute events overnight Vitals, medications, blood work and imaging reviewed in the chart. NAD. NCAT. MMM. Neck supple. Normal respiratory effort. RRR. Abd ND. No C/C. LE Edema 1-2+. No rash. AAO. Normal speech. RIJ CVC. Zambrano with dark urine. MAURIZIO likely ATN CKD III with proteinuria -No NSAIDs -HD prn Hyponatremia -Encourage nutriton -HD prn Hypomagnesemia -Replete prn DM II with CKD -RISS Severe malnutrition with anorexia -IV Albumin as ordered -Encourage nutrition Anemia in chronic illness Thrombocytopenia -Monitor CBC GNR Sepsis/ Septic Shock Acute GNR cystitis -Continue Abx -Follow up cultures -Continue pressor support Greater than 30min patient care
[2022-02-06] MEDS: HYDROCORTISONE SUC 100 MG INJ IV SCH ×3 (01:00→17:12)
[2022-02-06 05:07] LABS: Absolute Lymphocytes (CBC) 0.5 K/uL (0.7-4.9); Hematocrit 23.5 % (39.6-49.0); MCV 89.3 fL (80-100); RBC Red Blood Cell Count 2.63 M/uL (4.33-5.43)
[2022-02-06 05:37] LABS: Albumin 2.4 g/dL (3.4-5.0); Bilirubin Total 4.9 mg/dL (0.2-1.0); Magnesium 1.8 mg/dL (1.8-2.4); Phosphorus 3.8 mg/dL (2.5-4.9)
[2022-02-06] MEDS: INSULIN -REGULAR HUMAN 50 UNIT/0.5 ML ML SQ SCH ×4 (07:30→20:39)
--- NOTE | 2022-02-06 07:59 | ECHO ---
HEIGHT: 6 ft 0 in WEIGHT: 220 lb 2 oz DATE OF STUDY: 02/05/[address]: Aaron Blum MD 2-DIMENSIONAL: YES M.MODE: YES DOPPLER: YES COLOR FLOW: YES TDS: NO PORTABLE: YES DEFINITY: NO BUBBLE STUDY: NO DIAGNOSIS: HYPOTENSION CARDIAC HISTORY: CATHERIZATION: NO SURGERY: NO PROSTHETIC VALVE: NO PACEMAKER: NO MEASUREMENTS (cm) DIASTOLIC (NORMALS) SYSTOLIC (NORMALS) IVSd 1.3 (0.6-1.2) LA Diam 4.0 (1.9-4.0) LVEF 61% LVIDd 6.1 (3.5-5.7) LVIDs 4.1 (2.0-3.5) %FS 33% LVPWd 1.3 (0.6-1.2) Ao Diam 2.9 (2.0-3.7) 2 DIMENSIONAL ASSESSMENT: RIGHT ATRIUM: NORMAL LEFT ATRIUM: ENLARGED RIGHT VENTRICLE: NORMAL LEFT VENTRICLE: NORMAL TRICUSPID VALVE: MITRAL VALVE: PULMONIC VALVE: NORMAL AORTIC VALVE: NORMAL PERICARDIAL EFFUSION: NONE AORTIC ROOT: NORMAL LEFT VENTRICULAR WALL MOTION: NORMAL DOPPLER/COLOR FLOW: SEE BELOW COMMENTS: NORMAL LEFT VENTRICULAR EJECTION FRACTION 55-60%. MILD MITRAL AND TRICUSPID REGURGITATION. TECHNOLOGIST: Lilly ALEJO
[2022-02-06] MEDS: APIXABAN 5 MG TABLET PO SCH (08:14)
[2022-02-06] MEDS: PANTOPRAZOLE 40 MG INJ IVP SCH (08:14)
[2022-02-06] MEDS: MIDODRINE HCL 5 MG TABLET PO SCH ×3 (08:14→17:12)
[2022-02-06] MEDS: NEPRO SHAKE 237 ML CAN PO SCH (08:16)
--- NOTE | 2022-02-06 08:18 | P.PN ---
Subjective Date of Service: 02/06/22 Primary Care Provider: unknown Chief Complaint: acute on chronic renal failure Subjective: No new changes Review of Systems 10-point ROS is otherwise unremarkable Physical Examination - Vital Signs Temperature: 98.5 F Blood Pressure: 102/65 Pulse: 72 Respirations: 199 Pulse Ox (%): 92 - Physical Exam General: Alert, In no apparent distress HEENT: Atraumatic, PERRLA, EOMI Neck: Supple, JVD not distended Respiratory: Clear to auscultation bilaterally, Normal air movement Cardiovascular: Regular rate/rhythm, Normal S1 S2 Gastrointestinal: Normal bowel sounds, No tenderness Musculoskeletal: No tenderness, Swelling (of bilateral upper extremities) Integumentary: No rashes Neurological: Normal speech, Normal tone, Normal affect Lymphatics: No axilla or inguinal lymphadenopathy Assessment And Plan - Current Problems (Diagnosis) (1) Septic shock Current Visit: Yes Status: Acute Plan: on Vanc and meropenem. will order a doppler on his left arm. Will discuss the case with Dr. Lo Continue levophed and fluids. per Dr. Cabral 9.15 both organisms sensitive to levaquin. will switch to this to decrease volume of fluid (2) DM2 (diabetes mellitus, type 2) Current Visit: Yes Status: Acute Plan: He was on metformin. will hold that considering his kidney function. Check an a1c. Start him on sliding scale insulin. 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 Will hold that. Use prn hydralazine. He is currently hypotensive. Will adjust his medications as necessary Qualifiers: Hypertension type: primary hypertension Qualified Code(s): I10 - Essential (primary) hypertension (4) ESRD (end stage renal disease) Current Visit: Yes Status: Chronic Plan: continue dialysis. Per Dr. Ward (5) Cephalic vein thrombosis Current Visit: Yes Status: Acute Plan: will discuss anticoagulation with Dr. Ward Discharge Plan: Home Plan to discharge in: 24 Hours - Code Status/Comfort Care Code Status Assessed: No Code Status: Full Code Physician Review: Patient Assessed, Agree with Above Assessment and Plan Critical Care: Yes Time Spent Managing PTS Care (In Minutes): 20
[2022-02-06] MEDS ORDERED: Levofloxacin500mg IV 500 MG/100 ML BAG IV ONE (09:00)
[2022-02-06] MEDS: APIXABAN 2.5 MG TABLET PO SCH ×2 (09:00→20:38)
[2022-02-06 10:10] LABS: Urine Blood 3+ (Negative); Urine Clarity Turbid (Clear); Urine Color Orange (Yellow); Urine Glucose Negative (Negative); Urine Protein 3+ (Negative); Urine pH 6.5 (5.0-7.0)
[2022-02-06 10:17] LABS: Urine Bilirubin NEGATIVE (Negative)
[2022-02-06 10:36] LABS: Urine Bacteria <20 /HPF (<20); Urine Crystals Unidentified Few /HPF (None Seen); Urine RBC <5 /HPF (None Seen)
--- NOTE | 2022-02-06 11:41 | P.PN ---
Nephrology note (S) Seen after several days, events of past days noted, remains in the ICU, came off pressor support this AM but MAPs remain marginal in the lower 60s so RN did start back Levophed through fem CVC. Pt awake and mostly alert but appears mildly tachypnec and tired. (O) Vitals reviewed in the EMR Gen: NAD, appears chronically ill, mild tachypnec HEENT: Atraumatic, sclera anicteric, NC Resp: b/l air entry, reduced BS at the based CVS: RRR, no loud murmurs appreciated Abd: Soft, mild to mod distention, NT, kent p resent Ext: 2+ distal LE edema, Rt fem CVC Neuro: Awake, alert, responsive, non focal Labs reviewed in the EMR (A/P): 1. Stage III ARF per GRANT def with presenting Cr level > 4 mg/dl on likely underlying CKD NOS, with prior MAURIZIO earlier in the year. s/p TDC placement last week and initiation of HD, last HD a few days ago, will repeat today for metab clearance but will hold UF given marginal blood pressures. Oligoanuric now, will look to d/c kent if this state persists. Dose meds for reduced CrCl 2. Hypotension 2nd severe sepsis with shock, MSSA and Enterobacter bacteremia. Latter 2nd to urinary source with UTI. Abx per ID, will check blood culture x 1 from his IJ TDC. Will plan to remove fem CVC and obtain a Lt arm PICC line. Cont pressor support as needed, cont Midodrine started this week, maintain MAP > 65. 3. Pleural effusion NOS, ascites other. Peripheral edema, other. Abnormality of albumin. Cont Albumin support during HD, unable to mobilize 3rd space edema given recent sepsis, continued hypotension, other. 4. Complicated UTI, pyuria -complete Abx course Alpesh Miller MD, CLARISSE
[2022-02-06] MEDS: NOREPINEPHRINE 8 MG in D5W 250 ML IV SCH (12:02)
[2022-02-06] MEDS: CEFAZOLIN 1 GM in NA CHLORIDE 0.9% 50 ML IVPB SCH (15:09)
[2022-02-06] MEDS ORDERED: VANCOMYCIN 1 GM in NA CHLORIDE 0.9% 250 ML IVPB SCH (17:00)
[2022-02-06] MEDS: ASPIRIN EC 81 MG TAB PO SCH (17:11)
[2022-02-06] MEDS: ROSUVASTATIN 10 MG TAB PO SCH (20:38)
[2022-02-07] MEDS: HYDROCORTISONE SUC 100 MG INJ IV SCH ×3 (01:17→16:59)
[2022-02-07 06:38] LABS: Absolute Lymphocytes (CBC) 0.2 K/uL (0.7-4.9); Lymphocytes % 3.6 % (15.3-44.8); MCV 89.8 fL (80-100); MPV 7.9 fL (7.6-11.3); RBC Red Blood Cell Count 2.79 M/uL (4.33-5.43)
[2022-02-07 06:55] LABS: Albumin 2.1 g/dL (3.4-5.0); Bilirubin Total 4.7 mg/dL (0.2-1.0); Potassium 4.6 mmol/L (3.5-5.1); Protein, Total 4.7 g/dL (6.4-8.2)
[2022-02-07] MEDS: INSULIN -REGULAR HUMAN 50 UNIT/0.5 ML ML SQ SCH ×4 (07:30→21:00)
[2022-02-07 08:02] LABS: Platelet Estimate DECR
[2022-02-07 08:03] LABS: Anisocytosis SLIGHT; Blood Morphology Comment NOTED (NOT SEEN)
[2022-02-07] MEDS: ASPIRIN EC 81 MG TAB PO SCH (08:15)
[2022-02-07] MEDS: MIDODRINE HCL 5 MG TABLET PO SCH ×3 (08:15→16:59)
[2022-02-07] MEDS: PANTOPRAZOLE 40 MG INJ IVP SCH (08:15)
[2022-02-07] MEDS: NEPRO SHAKE 237 ML CAN PO SCH (08:15)
[2022-02-07] MEDS: APIXABAN 2.5 MG TABLET PO SCH ×2 (08:15→20:18)
--- NOTE | 2022-02-07 09:25 | P.PN ---
Subjective Date of Service: 02/07/22 Primary Care Provider: unknown Chief Complaint: acute on chronic renal failure Subjective: Improving (off levophed) Review of Systems 10-point ROS is otherwise unremarkable Genitourinary: Retention (400cc on bladder scan. He has poor outflow last night and today) Physical Examination - Vital Signs Temperature: 97.1 F Blood Pressure: 101/58 Pulse: 64 Respirations: 15 Pulse Ox (%): 91 - Physical Exam General: Alert, In no apparent distress HEENT: Atraumatic, PERRLA, EOMI Neurological: Normal affect Assessment And Plan - Current Problems (Diagnosis) (1) Septic shock Current Visit: Yes Status: Acute Plan: on Vanc and meropenem. will order a doppler on his left arm. Will discuss the case with Dr. Lo Continue levophed and fluids. per Dr. Cabral 02.08 both organisms sensitive to levaquin. will switch to this to decrease volume of fluid. Pharmacology added ancef for MRSA protochol (2) DM2 (diabetes mellitus, type 2) Current Visit: Yes Status: Acute Plan: He was on metformin. will hold that considering his kidney function. Check an a1c. Start him on sliding scale insulin. Will use an ADA diet on this patient Qualifiers: Diabetes mellitus prison insulin use: without termite control technician use Diabetes mellitus complication status: without complication Qualified Code(s): E11.9 - Type 2 diabetes mellitus without complications (3) HTN (hypertension) Current Visit: Yes Status: Acute Plan: Normally on losartan per his last visit. Will hold that. Use prn hydralazine. He is currently hypotensive. Will adjust his medications as necessary Qualifiers: Hypertension type: primary hypertension Qualified Code(s): I10 - Essential (primary) hypertension (4) ESRD (end stage renal disease) Current Visit: Yes Status: Chronic Plan: continue dialysis. Per Dr. Ward (5) Cephalic vein thrombosis Current Visit: Yes Status: Acute Plan: will discuss anticoagulation with Dr. Ward 02/07 on eliquis (6) BPH loc w urin obs/LUTS Current Visit: Yes Status: Chronic Plan: He has been having poor urinary flow before this admission. Will straight cath the patient today. Will then start him on tamusolin Discharge Plan: Home Plan to discharge in: 48 Hours - Code Status/Comfort Care Code Status Assessed: No Physician Review: Patient Assessed, Agree with Above Assessment and Plan Critical Care: Yes Time Spent Managing PTS Care (In Minutes): 20
--- NOTE | 2022-02-07 12:58 | P.PN ---
Nephrology note (S) Rt fem CVC removed, cath tip sent for culture, dialyzed uneventfully yesterday although no UF performed. Remains off Levophed since briefly re- initiated while on HD. Denies dyspnea but on LFNC. Bladder scan result was inaccurate, on straight cath this AM pt had minimal UOP. (O) Vitals reviewed in the EMR Gen: NAD, appears chronically ill, mild tachypnec HEENT: Atraumatic, sclera anicteric, NC Neck: Rt iJ TDC Resp: b/l air entry, reduced BS at the based CVS: RRR, no loud murmurs appreciated Abd: Soft, mild to mod distention, NT, kent removed Ext: 1+ distal LE edema, Rt fem CVC removed Neuro: Awake, alert, responsive, non focal Labs reviewed in the EMR (A/P): 1. Stage III ARF per GRANT def with presenting Cr level > 4 mg/dl on likely underlying CKD NOS, with prior MAURIZIO earlier in the year. s/p TDC placement last week and initiation of HD, last HD yesterday, metab profile acceptable. Oligoanuric now, did d/c kent, bladder scan results may be misleading due to ascites Dose meds for reduced CrCl 2. Hypotension 2nd severe sepsis with shock, MSSA and Enterobacter bacteremia. Latter 2nd to urinary source with UTI. Abx per ID, currently on Levaquin for the both. Did check blood culture x 1 from his IJ TDC yesterday. Did remove fem CVC. Off pressor support, cont Midodrine started this week, employ IV Albumin as needed on HD. 3. Pleural effusion NOS, ascites other. Peripheral edema, other. Abnormality of albumin. Unable to mobilize 3rd space edema this week given recent sepsis, continued hypotension, other but will attempt on HD tmrw. 4. Complicated UTI, pyuria -complete Abx course Alpesh Miller MD, CLARISSE
[2022-02-07] MEDS ORDERED: SODIUM CHL 0.9% 1000 ML BAG IV ONE (14:15)
[2022-02-07] MEDS: CEFAZOLIN 1 GM in NA CHLORIDE 0.9% 50 ML IVPB SCH (15:22)
[2022-02-07] MEDS: ROSUVASTATIN 10 MG TAB PO SCH (20:18)
[2022-02-08] MEDS: HYDROCORTISONE SUC 100 MG INJ IV SCH ×3 (01:28→16:30)
[2022-02-08 04:16] LABS: Absolute Lymphocytes (CBC) 0.4 K/uL (0.7-4.9); Hematocrit 27.7 % (39.6-49.0); Lymphocytes % 4.7 % (15.3-44.8); MCV 91.2 fL (80-100); MPV 8.3 fL (7.6-11.3); RBC Red Blood Cell Count 3.04 M/uL (4.33-5.43)
[2022-02-08 04:34] LABS: Albumin 2.1 g/dL (3.4-5.0); Bilirubin Total 4.6 mg/dL (0.2-1.0); Potassium 5.2 mmol/L (3.5-5.1); Protein, Total 5.1 g/dL (6.4-8.2)
[2022-02-08] MEDS: INSULIN -REGULAR HUMAN 50 UNIT/0.5 ML ML SQ SCH ×4 (07:30→21:00)
[2022-02-08] MEDS ORDERED: Levofloxacin 250mg IV 250 MG/50 ML BAG IV SCH (09:00)
[2022-02-08] MEDS: NEPRO SHAKE 237 ML CAN PO SCH (09:00)
[2022-02-08] MEDS: MIDODRINE HCL 5 MG TABLET PO SCH ×3 (11:11→16:30)
[2022-02-08] MEDS: ASPIRIN EC 81 MG TAB PO SCH (11:12)
[2022-02-08] MEDS: TAMSULOSIN 0.4 MG SR CAP PO SCH (11:12)
[2022-02-08] MEDS: PANTOPRAZOLE 40 MG INJ IVP SCH (11:13)
[2022-02-08] MEDS: APIXABAN 2.5 MG TABLET PO SCH (11:14)
--- NOTE | 2022-02-08 12:08 | P.PN ---
Subjective Date of Service: 02/08/22 Primary Care Provider: unknown Chief Complaint: acute on chronic renal failure Subjective: No new changes Review of Systems 10-point ROS is otherwise unremarkable General: Weakness Physical Examination - Vital Signs Temperature: 96.9 F Blood Pressure: 116/67 Pulse: 67 Respirations: 18 Pulse Ox (%): 93 - Physical Exam General: Alert, In no apparent distress HEENT: Atraumatic, PERRLA, EOMI Neck: Supple, JVD not distended Respiratory: Clear to auscultation bilaterally, Normal air movement Cardiovascular: Regular rate/rhythm, Normal S1 S2 Gastrointestinal: Normal bowel sounds, No tenderness Musculoskeletal: No tenderness Integumentary: No rashes Neurological: Normal speech, Normal tone, Normal affect Lymphatics: No axilla or inguinal lymphadenopathy Assessment And Plan - Current Problems (Diagnosis) (1) UTI (urinary tract infection) Current Visit: Yes Status: Acute Plan: S aureus, entrococci. Will be able to discharge on levaquin and bactrim po Qualifiers: Urinary tract infection type: site unspecified Hematuria presence: without hematuria Qualified Code(s): N39.0 - Urinary tract infection, site not specified (2) ESRD (end stage renal disease) Current Visit: Yes Status: Chronic Plan: continue dialysis. Per Dr. Ward (3) DM2 (diabetes mellitus, type 2) Current Visit: Yes Status: Acute Plan: He was on metformin. will hold that considering his kidney function. Check an a1c. Start him on sliding scale insulin. Will use an ADA diet on this patient Qualifiers: Diabetes mellitus detention insulin use: without detention use Diabetes mellitus complication status: without complication Qualified Code(s): E11.9 - Type 2 diabetes mellitus without complications (4) HTN (hypertension) Current Visit: Yes Status: Acute Plan: Normally on losartan per his last visit. Will hold that. Use prn hydralazine. He is currently hypotensive. Will adjust his medications as necessary Qualifiers: Hypertension type: primary hypertension Qualified Code(s): I10 - Essential (primary) hypertension (5) Cephalic vein thrombosis Current Visit: Yes Status: Acute Plan: will discuss anticoagulation with Dr. Ward 02/07 on eliquis (6) BPH loc w urin obs/LUTS Current Visit: Yes Status: Chronic Plan: He has been having poor urinary flow before this admission. Will straight cath the patient today. Will then start him on tamusolin (7) Protein-energy malnutrition Current Visit: Yes Status: Acute Plan: Patient is able to sit up. Will need to send him to an LTAC for PT. While going to PT Qualifiers: Protein-calorie malnutrition severity: severe Qualified Code(s): E43 - Unspecified severe protein-calorie malnutrition Physician Review: Patient Assessed, Agree with Above Assessment and Plan
[2022-02-08] MEDS ORDERED: levoFLOXacin 250 MG TAB PO SCH (14:00)
[2022-02-08] MEDS: CEFAZOLIN 1 GM in NA CHLORIDE 0.9% 50 ML IVPB SCH (14:38)
[2022-02-08] MEDS ORDERED: NA CHLORIDE 0.9% 250 ML IV ONE (15:30)
[2022-02-08 18:50] LABS: Arterial Blood Carboxyhemoglob 1.2 % (0-1.5); Blood Gas Oxyhemoglobin 85.4 % (94-97); Blood O2 Saturation 87.6 % (92-98.5)
--- NOTE | 2022-02-08 19:48 | RAD REPORT ---
EXAM DESCRIPTION: RAD - Abdomen 1 View (KUB) - 02/08/2022 7:31 pm CLINICAL HISTORY: ACITES COMPARISON: Abdomen Pelvis Wo Contrast dated 01/27/2022; Chest Single View dated 02/08/2022; Chest Ab d Pelvis Wo Con dated 02/03/2022 FINDINGS: Distended small bowel centrally. No definite obstruction is identified . No acute osseous abnormality.Visualized lungs are unremarkable.No abnormal calcifications. Aorto bi-iliac stent graft within a large aortic aneurysm. IMPRESSION: Nonspecific bowel gas pattern. Distended small bowel centrally without convincing eviden ce of obstruction.
--- NOTE | 2022-02-08 19:51 | RAD REPORT ---
EXAM DESCRIPTION: RAD - Chest Single View - 02/08/2022 7:31 pm CLINICAL HISTORY: SOB COMPARISON: <Comparisons> FINDINGS: Lines: Right IJ approach dialysis catheter. Lungs: Worsening pulmonary edema. Pleural: Moderate right and small moderate left pleural effusions. Cardiac: Cardiomegaly. Mediastinum: Within normal limits. Bones: No acute fractures. Other: None IMPRESSION: Pulmonary edema with moderate right and small to moderate left layering pleural effusion s.
[2022-02-08] MEDS: ROSUVASTATIN 10 MG TAB PO SCH (21:32)
--- NOTE | 2022-02-08 22:39 | P.PN ---
Date of Service: 02/08/22 Vital Signs Temp Pulse Resp BP Pulse Ox 96.5 F L 72 20 88/48 L 91 02/08/22 15:31 02/08/22 15:31 02/08/22 15:31 02/08/22 15:31 02/08/22 15:31 Medications Acetaminophen (Acetaminophen 500 Mg Tab) 500 mg PO Q6H PRN PRN Reason: Pain scale 5-7 (Moderate) Last Admin: 02/03/22 15:50 Dose: 500 mg Apixaban (Apixaban 2.5 Mg Tablet) 2.5 mg PO BID [facility] Last Admin: 02/08/22 11:14 Dose: 2.5 mg Aspirin (Aspirin Ec 81 Mg Tab) 81 mg PO DAILY [facility] Last Admin: 02/08/22 11:12 Dose: 81 mg Dextrose (Dextrose 10%-Water 500 Ml Iv Bag) 125 ml IV PRN PRN; Protocol PRN Reason: HYPOGLYCEMIA Last Admin: 02/03/22 21:36 Dose: 125 ml Enteral Nutritional Formula (Nepro Shake 237 Ml Can) 237 ml PO DAILY [facility] Last Admin: 02/08/22 09:00 Dose: 237 ml Glucagon (Glucagon 1 Mg/Vial) 1 mg IM 1X PRN; Protocol PRN Reason: HYPOGLYCEMIA Heparin Sodium (Porcine) (Heparin 1,000 Unit/Ml Vial) 4,000 unit IV EVERY HD PRN PRN Reason: AFTER EACH Last Admin: 02/06/22 16:08 Dose: 4,000 unit Hydralazine HCl (Hydralazine Hcl 20 Mg/Ml Vial) 10 mg IV Q6HP PRN PRN Reason: HIGHBP Hydrocortisone Sodium Succinate (Hydrocortisone Suc 100 Mg Inj) 50 mg IV Q8HR [facility] Last Admin: 02/08/22 16:30 Dose: 50 mg Albumin Human (Albumin 25%) 100 mls @ 100 mls/hr IV EVERY HD [facility] Last Admin: 02/06/22 13:04 Dose: 100 mls Norepinephrine Bitartrate 8 mg (/ Dextrose) 258 mls @ 19.581 mls/hr IV TITR [facility]; Protocol Last Titration: 02/06/22 18:30 Dose: 0 mcg/kg/min, 0 mls/hr Cefazolin Sodium 1 gm/ Sodium (Chloride) 50 mls @ 100 mls/hr IVPB Q24H [facility] Last Admin: 02/08/22 14:38 Dose: 50 mls Insulin Human Regular (Insulin -Regular Human 50 Unit/0.5 Ml Ml) 0 unit SQ ACHS [facility]; Protocol Last Admin: 02/08/22 21:00 Dose: Not Given Levofloxacin (Levofloxacin 250 Mg Tab) 250 mg PO Q48H [facility] Last Admin: 02/08/22 14:38 Dose: 250 mg Midodrine (Midodrine Hcl 5 Mg Tablet) 5 mg PO TIDWM [facility] Last Admin: 02/08/22 16:30 Dose: 5 mg Pantoprazole Sodium (Pantoprazole 40 Mg Inj) 40 mg IVP DAILY [facility]; Protocol Last Admin: 02/08/22 11:13 Dose: 40 mg Rosuvastatin Calcium (Rosuvastatin 10 Mg Tab) 10 mg PO BEDTIME [facility] Last Admin: 02/08/22 21:32 Dose: 10 mg Sodium Chloride (Sodium Chloride 0.9% 10ml Inj) 10 ml IV UD PRN PRN Reason: Diluant Tamsulosin HCl (Tamsulosin 0.4 Mg Sr Cap) 0.4 mg PO DAILY [facility] Last Admin: 02/08/22 11:12 Dose: 0.4 mg Microbiology Results 01/25/22 16:15 Clean Catch Urine [place] Count - Final <10,000 CFU/ML. 01/25/22 16:15 Clean Catch Urine - Final MIXED JAYSON. Assessment/ Plan: Nephrology Worsening dyspnea Weakness and fatigue Anorexia Poor urine output in the setting of worsening hypotension No acute events overnight Vitals, medications, blood work and imaging reviewed in the chart. Mild distress. NCAT. MMM. Neck supple. BL Rales. RRR. Abd Distended. No C/C. LE Edema 2+. No rash. Awake. Minimal speech. RIJ HD CVC. Zambrano with dark urine. MAURIZIO likely ATN CKD III with proteinuria -No NSAIDs -HD as ordered Hyponatremia -Encourage nutriton -HD as ordered Hypomagnesemia -Replete prn DM II with CKD -RISS Severe malnutrition with anorexia -IV Albumin as ordered -Encourage nutrition Anemia in chronic illness Thrombocytopenia -Monitor CBC GNR Sepsis/ Septic Shock Acute GNR cystitis -Continue Abx -Follow up cultures -Vasopressor support as needed -Caution with excess IVF; IV Albumin prn Acute respiratory failure -Bipap prn Greater than 30min patient care Case reviewed with Dr. Pool. The patient transferred to the ICU for hypotension and dyspnea. Stat KUB and CXR ordered and reviewed.
[2022-02-09] MEDS: HYDROCORTISONE SUC 100 MG INJ IV SCH ×2 (00:40→08:16)
[2022-02-09 05:04] LABS: Absolute Lymphocytes (CBC) 0.5 K/uL (0.7-4.9); Hematocrit 25.4 % (39.6-49.0); Lymphocytes % 6.5 % (15.3-44.8); MCV 90.9 fL (80-100); MPV 8.7 fL (7.6-11.3); RBC Red Blood Cell Count 2.79 M/uL (4.33-5.43)
[2022-02-09 05:28] LABS: Albumin 1.8 g/dL (3.4-5.0); Bilirubin Total 4.1 mg/dL (0.2-1.0); Protein, Total 4.7 g/dL (6.4-8.2)
[2022-02-09 05:30] LABS: Potassium 6.1 mmol/L (3.5-5.1)
[2022-02-09] MEDS: INSULIN -REGULAR HUMAN 50 UNIT/0.5 ML ML SQ SCH ×4 (07:23→20:54)
[2022-02-09] MEDS: PANTOPRAZOLE 40 MG INJ IVP SCH (08:17)
[2022-02-09] MEDS: ASPIRIN EC 81 MG TAB PO SCH (08:17)
[2022-02-09] MEDS: TAMSULOSIN 0.4 MG SR CAP PO SCH (08:17)
[2022-02-09] MEDS: NEPRO SHAKE 237 ML CAN PO SCH (08:17)
[2022-02-09] MEDS: MIDODRINE HCL 5 MG TABLET PO SCH ×3 (08:17→20:53)
[2022-02-09] MEDS ORDERED: ALBUMIN HUMAN 25% 200 ML IV ONE (11:11)
--- NOTE | 2022-02-09 11:14 | P.PN ---
Subjective Date of Service: 02/09/22 Primary Care Provider: unknown Chief Complaint: Respiratory distress hypotension Patient was transferred from the floor to the ICU with in respiratory distress and hypotension Jami is not on vasopressors still a little short of breath has a right-sided pleural effusion and hyperkalemia Review of Systems General: Weakness Respiratory: Shortness of Breath Physical Examination - Vital Signs Temperature: 97.5 F Blood Pressure: 104/61 Pulse: 66 Respirations: 16 Pulse Ox (%): 100 - Physical Exam General: Alert, Moderate distress Respiratory: Diminished (Diminished on the right side), Crackles/rales Cardiovascular: Edema Assessment And Plan - Current Problems (Diagnosis) (1) Respiratory distress Current Visit: Yes Status: Acute Plan: Patient was transferred from the floor with respiratory distress hypoxemia low blood pressure he has a right-sided pleural effusion scheduled for hemodialysis May need vasopressors he is currently on high flow oxygen originally 100% on 40% abnormal LFTs patient's blood cultures are positive he is on cefazolin and levofloxacin white count is normal repeat blood cultures show no growth DC hydrocortisone for now Physician Review: Patient Assessed, Agree with Above Assessment and Plan
--- NOTE | 2022-02-09 11:36 | P.PN ---
Subjective Date of Service: 02/09/22 Primary Care Provider: unknown Chief Complaint: Respiratory distress hypotension Subjective: No new changes Review of Systems 10-point ROS is otherwise unremarkable General: Weakness Physical Examination - Vital Signs Temperature: 97.5 F Blood Pressure: 104/61 Pulse: 66 Respirations: 16 Pulse Ox (%): 100 - Physical Exam General: Alert, In no apparent distress HEENT: Atraumatic, PERRLA, EOMI Neck: Supple, JVD not distended Respiratory: Clear to auscultation bilaterally, Normal air movement Cardiovascular: Regular rate/rhythm, Normal S1 S2 Gastrointestinal: Normal bowel sounds, No tenderness Musculoskeletal: No tenderness Integumentary: No rashes Neurological: Normal speech, Normal tone, Normal affect Lymphatics: No axilla or inguinal lymphadenopathy Assessment And Plan - Current Problems (Diagnosis) (1) UTI (urinary tract infection) Current Visit: Yes Status: Acute Plan: S aureus, entrococci. Will be able to discharge on levaquin and bactrim po Qualifiers: Urinary tract infection type: site unspecified Hematuria presence: without hematuria Qualified Code(s): N39.0 - Urinary tract infection, site not specified (2) ESRD (end stage renal disease) Current Visit: Yes Status: Chronic Plan: continue dialysis. Per Dr. Ward (3) DM2 (diabetes mellitus, type 2) Current Visit: Yes Status: Acute Plan: He was on metformin. will hold that considering his kidney function. Check an a1c. Start him on sliding scale insulin. Will use an ADA diet on this patient Qualifiers: Diabetes mellitus medical terminologist insulin use: without medical terminologist use Diabetes mellitus complication status: without complication Qualified Code(s): E11.9 - Type 2 diabetes mellitus without complications (4) HTN (hypertension) Current Visit: Yes Status: Acute Plan: Normally on losartan per his last visit. Will hold that. Use prn hydralazine. He is currently hypotensive. Will adjust his medications as necessary Qualifiers: Hypertension type: primary hypertension Qualified Code(s): I10 - Essential (primary) hypertension (5) Cephalic vein thrombosis Current Visit: Yes Status: Acute Plan: will discuss anticoagulation with Dr. Ward 02/07 on eliquis (6) BPH loc w urin obs/LUTS Current Visit: Yes Status: Chronic Plan: He has been having poor urinary flow before this admission. Will straight cath the patient today. Will then start him on tamusolin (7) Protein-energy malnutrition Current Visit: Yes Status: Acute Plan: Patient is able to sit up. Will need to send him to an LTAC for PT. While going to PT Qualifiers: Protein-calorie malnutrition severity: severe Qualified Code(s): E43 - Unspecified severe protein-calorie malnutrition (8) Respiratory distress Current Visit: Yes Status: Acute Plan: Most likely due from fluid overload. He was moved to icu. started on high flow oxygen. did no need pressors. He is doing better after dialysis. Having a central line placed by Dr. Lo Discharge Plan: LTAC Plan to discharge in: Greater than 2 days - Code Status/Comfort Care Code Status Assessed: No Physician Review: Patient Assessed, Agree with Above Assessment and Plan Critical Care: Yes Time Spent Managing PTS Care (In Minutes): 20
--- NOTE | 2022-02-09 12:10 | P.OP ---
Preoperative diagnosis: Need for Venous Access Postoperative diagnosis: Need for Venous Access Primary procedure: Placement of RIGHT IJ triple lumen central line catheter Secondary procedure: ultrasound / micro set utilized Anesthesia: 1% lidocain Estimated blood loss: <5cc Specimen: none Findings: ultrasound confirmed position Complications: None Implants: 20cm triple lumen catheter Transferred to: ICU Condition: Serious
--- NOTE | 2022-02-09 12:34 | OP ---
Date of Procedure: 02/09/2022 Surgeon: Juan Daniel Lo MD, Preoperative Diagnosis: Need for central venous access. Postoperative Diagnosis: Need for central venous access. Procedures Performed: 1.Placement of a left internal jugular triple-lumen central venous catheter. 2.Secondary procedure was ultrasound was used and microintroducer set. Anesthesia: 1% lidocaine utilized. Estimated Blood Loss: Less than 5 mL. Specimen: None. Findings: Ultrasound confirmed position of the catheter. Complications: None. Implants: A 20 cm triple-lumen catheter. Disposition: The patient remained in ICU in serious condition. Procedure In Detail: After informed consent was obtained from the patient's family, medical power of erisa attorney, the patient was prepped and draped in the usual sterile fashion after adequate anesthesia was achieved. The patient was placed in steep Trendelenburg position and using ultrasound guidance, I cannulated the left internal jugular vein with a microintroducer needle. Microwire was advanced at this point. Fluoroscopy confirmed position in the left internal jugular vein. I then made a small tommy incision overlying the insertion site after placing the microwire into the site and placed the m icrointroducer sheath and removed the microwire at this point. Dark red nonpulsatile blood was retur ericka. I then advanced a standard wire at this point and performed sequential dilatation using the Jaquelin coco technique ultimately placing a triple-lumen central venous catheter and at this point, the wir e was removed once again and the central venous catheter was koki back dark red nonpulsatile blood an d flushed quite easily and was flushed until completely clear and secured to the skin with marla an d 2-0 nylon suture and sterile dressing placed over top. The patient tolerated the procedure well wi thout evidence of complication, remained in ICU in serious condition throughout the procedure. All c ounts were correct at the end of the case. TK/MODL Voice ID: [id number] Report ID: [id number]
--- NOTE | 2022-02-09 13:05 | RAD REPORT ---
EXAM DESCRIPTION: Petr Single View02/09/2022 12:34 pm CLINICAL HISTORY: Device placement/central venous catheter placement IMPRESSION: Left central venous catheter has been placed with its tip in the right atrium No pneumothorax Mild pulmonary edema. Small right pleural effusion
[2022-02-09 14:02] LABS: Albumin 2.8 g/dL (3.4-5.0); Bilirubin Total 4.2 mg/dL (0.2-1.0); Potassium 4.8 mmol/L (3.5-5.1); Protein, Total 5.5 g/dL (6.4-8.2)
[2022-02-09 14:04] LABS: Protime INR 2.48
[2022-02-09] MEDS: CEFAZOLIN 1 GM in NA CHLORIDE 0.9% 50 ML IVPB SCH (17:51)
[2022-02-09] MEDS: ROSUVASTATIN 10 MG TAB PO SCH (20:52)
--- NOTE | 2022-02-09 22:42 | P.PN ---
Date of Service: 02/09/22 Vital Signs Temp Pulse Resp BP Pulse Ox 96.6 F L 76 18 117/67 100 02/09/22 16:00 02/09/22 18:00 02/09/22 18:00 02/09/22 18:00 02/09/22 18:00 Medications Acetaminophen (Acetaminophen 500 Mg Tab) 500 mg PO Q6H PRN PRN Reason: Pain scale 5-7 (Moderate) Last Admin: 02/03/22 15:50 Dose: 500 mg Apixaban (Apixaban 2.5 Mg Tablet) 2.5 mg PO BID [facility] Last Admin: 02/08/22 11:14 Dose: 2.5 mg Aspirin (Aspirin Ec 81 Mg Tab) 81 mg PO DAILY [facility] Last Admin: 02/09/22 08:17 Dose: 81 mg Dextrose (Dextrose 10%-Water 500 Ml Iv Bag) 125 ml IV PRN PRN; Protocol PRN Reason: HYPOGLYCEMIA Last Admin: 02/03/22 21:36 Dose: 125 ml Enteral Nutritional Formula (Nepro Shake 237 Ml Can) 237 ml PO DAILY [facility] Last Admin: 02/09/22 08:17 Dose: 237 ml Glucagon (Glucagon 1 Mg/Vial) 1 mg IM 1X PRN; Protocol PRN Reason: HYPOGLYCEMIA Heparin Sodium (Porcine) (Heparin 1,000 Unit/Ml Vial) 4,000 unit IV EVERY HD PRN PRN Reason: AFTER EACH Last Admin: 02/06/22 16:08 Dose: 4,000 unit Hydralazine HCl (Hydralazine Hcl 20 Mg/Ml Vial) 10 mg IV Q6HP PRN PRN Reason: HIGHBP Albumin Human (Albumin 25%) 100 mls @ 100 mls/hr IV EVERY HD [facility] Last Admin: 02/06/22 13:04 Dose: 100 mls Norepinephrine Bitartrate 8 mg (/ Dextrose) 258 mls @ 19.581 mls/hr IV TITR [facility]; Protocol Last Titration: 02/06/22 18:30 Dose: 0 mcg/kg/min, 0 mls/hr Cefazolin Sodium 1 gm/ Sodium (Chloride) 50 mls @ 100 mls/hr IVPB Q24H [facility] Last Admin: 02/09/22 17:51 Dose: 50 mls Insulin Human Regular (Insulin -Regular Human 50 Unit/0.5 Ml Ml) 0 unit SQ ACHS [facility]; Protocol Last Admin: 02/09/22 20:54 Dose: Not Given Levofloxacin (Levofloxacin 250 Mg Tab) 250 mg PO Q48H [facility] Last Admin: 02/08/22 14:38 Dose: 250 mg Midodrine (Midodrine Hcl 5 Mg Tablet) 10 mg PO TID [facility] Last Admin: 02/09/22 20:53 Dose: 10 mg Rosuvastatin Calcium (Rosuvastatin 10 Mg Tab) 10 mg PO BEDTIME [facility] Last Admin: 02/09/22 20:52 Dose: 10 mg Sodium Chloride (Sodium Chloride 0.9% 10ml Inj) 10 ml IV UD PRN PRN Reason: Diluant Tamsulosin HCl (Tamsulosin 0.4 Mg Sr Cap) 0.4 mg PO DAILY [facility] Last Admin: 02/09/22 08:17 Dose: 0.4 mg Microbiology Results 01/25/22 16:15 Clean Catch Urine [place] Count - Final <10,000 CFU/ML. 01/25/22 16:15 Clean Catch Urine - Final MIXED JAYSON. Assessment/ Plan: Nephrology Persistent dyspnea Weakness and fatigue Anorexia Poor urine output in the setting of persistent hypotension No acute events overnight Vitals, medications, blood work and imaging reviewed in the chart. Mild distress. NCAT. MMM. Neck supple. BL Rales. RRR. Abd Distended. No C/C. LE Edema 2+. No rash. Awake. Minimal speech. RIJ HD CVC. Zambrano with dark urine. MAURIZIO likely ATN CKD III with proteinuria -No NSAIDs -HD as ordered; Albumin with HD Hyponatremia -Encourage nutriton -HD as ordered Hypomagnesemia -Replete prn DM II with CKD -RISS Severe malnutrition with anorexia -IV Albumin as ordered -Encourage nutrition Anemia in chronic illness Thrombocytopenia -Monitor CBC GNR Sepsis/ Septic Shock Acute GNR cystitis -Continue Abx -Follow up cultures -Vasopressor support as needed; new central line placed -Caution with excess IVF; IV Albumin prn Acute respiratory failure -Bipap prn Greater than 30min patient care Case reviewed with Dr. Lo.
[2022-02-10 06:35] LABS: Arterial Blood Carboxyhemoglob 1.4 % (0-1.5); Blood Gas Oxyhemoglobin 93.2 % (94-97); Blood O2 Saturation 95.9 % (92-98.5)
[2022-02-10] MEDS: INSULIN -REGULAR HUMAN 50 UNIT/0.5 ML ML SQ SCH ×2 (07:30→11:30)
[2022-02-10] MEDS: TAMSULOSIN 0.4 MG SR CAP PO SCH ×2 (08:13→08:28)
[2022-02-10] MEDS: MIDODRINE HCL 5 MG TABLET PO SCH ×3 (08:13→13:18)
[2022-02-10] MEDS: ASPIRIN EC 81 MG TAB PO SCH ×2 (08:13→08:28)
[2022-02-10] MEDS: NEPRO SHAKE 237 ML CAN PO SCH ×2 (08:15→08:27)
[2022-02-10] MEDS: DEXTROSE 10%-WATER 500 ML IV BAG IV PRN ×2 (08:46→12:36)
--- NOTE | 2022-02-10 10:20 | P.PN ---
Subjective Date of Service: 02/10/22 Primary Care Provider: unknown Chief Complaint: Respiratory distress hypotension Subjective: Worsening Patient told his daughter and nursing staff he does not want to take medication. He wants to go home with hospice. His daughter Letitia is here and confirms this. He is not stating he wants to stop HD. done by [facility] as I am covid positive Review of Systems is unable to be obtained Neurological: Other (lethargic dificult to arous) Physical Examination - Vital Signs Temperature: 97.7 F Blood Pressure: 89/55 Pulse: 64 Respirations: 22 Pulse Ox (%): 99 - Physical Exam General: Other (lethargic and difficult to arouse ) HEENT: Atraumatic, Normocephalic Assessment And Plan - Current Problems (Diagnosis) (1) End of life care Current Visit: Yes Status: Acute Plan: Patient states he wants to "let nature take its course"". His daughter has medical power of commercial litigation attorney. She wants to honor his wishes. The patient will not wake up enough to answer questions. Not sure if he wants to stop dialysis. Will make him a DNR. Put in a consult to hospice. (2) UTI (urinary tract infection) Current Visit: Yes Status: Acute Plan: S aureus, entrococci. Will be able to discharge on levaquin and bactrim po Qualifiers: Urinary tract infection type: site unspecified Hematuria presence: without hematuria Qualified Code(s): N39.0 - Urinary tract infection, site not specified (3) ESRD (end stage renal disease) Current Visit: Yes Status: Chronic Plan: continue dialysis. Per Dr. Ward (4) DM2 (diabetes mellitus, type 2) Current Visit: Yes Status: Acute Plan: He was on metformin. will hold that considering his kidney function. Check an a1c. Start him on sliding scale insulin. Will use an ADA diet on this patient Qualifiers: Diabetes mellitus prison insulin use: without prison use Diabetes mellitus complication status: without complication Qualified Code(s): E11.9 - Type 2 diabetes mellitus without complications (5) HTN (hypertension) Current Visit: Yes Status: Acute Plan: Normally on losartan per his last visit. Will hold that. Use prn hydralazine. He is currently hypotensive. Will adjust his medications as necessary Qualifiers: Hypertension type: primary hypertension Qualified Code(s): I10 - Essential (primary) hypertension (6) Cephalic vein thrombosis Current Visit: Yes Status: Acute Plan: will discuss anticoagulation with Dr. Ward 02/07 on eliquis (7) BPH loc w urin obs/LUTS Current Visit: Yes Status: Chronic Plan: He has been having poor urinary flow before this admission. Will straight cath the patient today. Will then start him on tamusolin (8) Protein-energy malnutrition Current Visit: Yes Status: Acute Plan: Patient is able to sit up. Will need to send him to an LTAC for PT. While going to PT Qualifiers: Protein-calorie malnutrition severity: severe Qualified Code(s): E43 - Unspecified severe protein-calorie malnutrition (9) Respiratory distress Current Visit: Yes Status: Resolved Plan: Most likely due from fluid overload. He was moved to icu. started on high flow oxygen. did no need pressors. He is doing better after dialysis. Having a central line placed by Dr. Lo Discharge Plan: Home - Code Status/Comfort Care Code Status Assessed: No Code Status: Do Not Attempt Resuscitat Physician Review: Patient Assessed, Agree with Above Assessment and Plan Critical Care: Yes Time Spent Managing PTS Care (In Minutes): 25
[2022-02-10] MEDS ORDERED: Levofloxacin500mg IV 500 MG/100 ML BAG IV ONE (12:00)
[2022-02-10 12:34] VITALS: TEMP 97.6
[2022-02-10] MEDS: CEFAZOLIN 1 GM in NA CHLORIDE 0.9% 50 ML IVPB SCH (15:38)
--- NOTE | 2022-02-10 16:10 | CON ---
Date of Consultation: 02/04/2022 Reason For Consultation: Sepsis, hypotension, and elevated troponin. History Of Present Illness: Mr. Freeman is a 76-year-old with history of hypertension, diabetes, per ipheral vascular disease, chronic renal disease, who presented with worsening renal failure on 2021 with malaise, lethargy, low appetite, weakness, fatigue. His creatinine was 5.3. Hemodialysis catheter was placed and dialysis has been started. He does have a history of [id number]. He is a do not resuscitate. Since he has been in the hospital, he developed sepsis, hypotension. Troponin w as elevated. No chest pain reported and I was consulted. Past Medical History: As stated above. Review of Systems: Negative. Social History: Negative. Family History: Noncontributory. Medications: At home include amiodarone, Norvasc, losartan, metformin, metoprolol, Crestor, Proventi l, Eliquis, Colace, Novolin, Decadron, hydrochlorothiazide, Zofran. Physical Examination: Vital Signs: When I saw him; his blood pressure was 88/57. He was in sinus rhythm. He was afebrile . HEENT: Negative. Neck: Supple without any bruit, lymphadenopathy, JVD, or thyromegaly. Chest: Clear to auscultation and percussion. Cardiac: Revealed a regular rhythm and rate. No murmurs, gallops, or rubs. Abdomen: Benign. Extremities: Revealed no clubbing, cyanosis, or edema. Diagnostic Data: He had an O2 saturation of 94% on nasal cannula. His sodium was 135. His creatini ne was 5.3. PO2 was 83, pCO2 of 38, pH is 7.33. His white count was 24,000, hemoglobin of 9.8. D-d catihe was 19,000. Troponin was 176. He what appears to have UTI. Chest x-ray revealed volume overlo ad. Venous ultrasound shows small amount of thrombus in the right popliteal vein, which appeared to be acute or subacute. CT of the chest, abdomen, and pelvis showed some ascites, left renal calculus, aortic endograft that is patent. Impression And Plan: 1.Elevated troponin secondary to demand ischemia from sepsis and hypotension and renal failure. Ech ocardiogram is pending. No reason for any aggressive cardiac workup otherwise. Continue his present regimen as far as his infection is concern and as far as his renal failure is concerned. Continue d ialysis. Nephrology is following as well as General Surgery. 2.His other problems include renal failure, on dialysis now. 3.Hypertension. 4.Diabetes. 5.Peripheral vascular disease, status post aortobifemoral surgery. 6.Atrial fibrillation, on amiodarone and Eliquis. Sinus rhythm now. 7.Dyslipidemia. 8.Chronic obstructive pulmonary disease. I will continue his present regimen as stated earlier, get an echo. We will continue to follow him. CITLALLI/WILLIAM Voice ID: [id number] Report ID: [id number]
--- NOTE | 2022-02-10 18:04 | PN ---
Date of Progress Note: 02/07/2022 Mr. Freeman has been followed for sepsis, elevated troponin, DVT, atrial fibrillation, peripheral art erial disease, and hypotension. Echocardiogram was normal with some mild mitral regurgitation, mild tricuspid regurgitation, ejection fraction of 61%. Today his blood pressure is 132/74, respiratory r ate of 30, temperature is 96.5. He is receiving inpatient hemodialysis. O2 saturation is 98%. Last creatinine is 4.52. Last hemoglobin is 8.5. Calcium is 7.8. AST and ALT are mildly elevated still . His alkaline phosphatase was 334. His present regimen includes albumin, antibiotics, Eliquis, asp irin, Levophed, midodrine, pantoprazole, and rosuvastatin. We agree with his present regimen. We wi ll continue to follow. CITLALLI/WILLIAM Voice ID: [id number] Report ID: [id number]
--- NOTE | 2022-02-10 18:09 | PN ---
Date of Progress Note: 02/06/2022 Mr. Freeman was being followed for renal failure, atrial fibrillation, peripheral vascular disease, D VT, elevated troponin, sepsis. An echocardiogram showed an ejection fraction of 61% with mild mitral and tricuspid regurgitation, normal right ventricular systolic pressure. Again, we feel that his tr oponin elevation is secondary to sepsis, renal failure, and demand ischemia. He has normal ejection fraction and no wall motion abnormalities. Continue present regimen. We will continue to follow him for his history of AFib, peripheral arterial disease, and DVT. CITLALLI/WILLIAM Voice ID: [id number] Report ID: [id number]
--- NOTE | 2022-02-10 18:09 | PN ---
Date of Progress Note: 02/08/2022 Mr. Freeman has been followed for many reasons including hypotension, sepsis, end-stage renal disease with renal failure, atrial fibrillation, on amiodarone and Eliquis, DVT, peripheral arterial disease . He had a normal echocardiogram. Last vital signs; blood pressure 104/61, pulse of 66, respiratory rate is improved to 16. He is afebrile. His O2 saturation is 99% on high-flow oxygen. His last pO 2 was 57 with a pCO2 of 44. Creatinine is 5.77. Hemoglobin is 8.5. His potassium is 6.1. His AST continues to go up to 344. Alkaline phosphatase is 433. Remained on antibiotics, Eliquis, midodrine , rosuvastatin, pantoprazole injection, tamsulosin, and levofloxacin. I think at this point from a c ardiac standpoint, we will sign off his case. He is a do not resuscitate, but if he wishes to be agg ressive down the road after he goes home, we will consider getting a Lexiscan on him. CITLALLI/WILLIAM Voice ID: [id number] Report ID: [id number]
[2022-02-10 18:19] VITALS: BP 96/52
[2022-02-10] MEDS ORDERED: EPOETIN ALFA 10,000 UNIT/ML VIAL SQ ONE (18:42)
--- NOTE | 2022-02-10 18:45 | P.PN ---
Date of Service: 02/10/22 Vital Signs Temp Pulse Resp BP Pulse Ox 97.6 F 76 24 H 96/52 L 89 L 02/10/22 16:00 02/10/22 18:00 02/10/22 18:00 02/10/22 18:00 02/10/22 18:00 Medications Acetaminophen (Acetaminophen 500 Mg Tab) 500 mg PO Q6H PRN PRN Reason: Pain scale 5-7 (Moderate) Last Admin: 02/03/22 15:50 Dose: 500 mg Apixaban (Apixaban 2.5 Mg Tablet) 2.5 mg PO BID SHANNEN Last Admin: 02/08/22 11:14 Dose: 2.5 mg Dextrose (Dextrose 10%-Water 500 Ml Iv Bag) 125 ml IV PRN PRN; Protocol PRN Reason: HYPOGLYCEMIA Last Admin: 02/10/22 12:36 Dose: 125 ml Enteral Nutritional Formula (Nepro Shake 237 Ml Can) 237 ml PO DAILY SHANNEN Last Admin: 02/10/22 08:27 Dose: Not Given Glucagon (Glucagon 1 Mg/Vial) 1 mg IM 1X PRN; Protocol PRN Reason: HYPOGLYCEMIA Heparin Sodium (Porcine) (Heparin 1,000 Unit/Ml Vial) 4,000 unit IV EVERY HD PRN PRN Reason: AFTER EACH Last Admin: 02/06/22 16:08 Dose: 4,000 unit Hydralazine HCl (Hydralazine Hcl 20 Mg/Ml Vial) 10 mg IV Q6HP PRN PRN Reason: HIGHBP Albumin Human (Albumin 25%) 100 mls @ 100 mls/hr IV EVERY HD SHANNEN Last Admin: 02/06/22 13:04 Dose: 100 mls Norepinephrine Bitartrate 8 mg (/ Dextrose) 258 mls @ 19.581 mls/hr IV TITR SHANNEN; Protocol Last Titration: 02/06/22 18:30 Dose: 0 mcg/kg/min, 0 mls/hr Cefazolin Sodium 1 gm/ Sodium (Chloride) 50 mls @ 100 mls/hr IVPB Q24H SHANNEN Last Admin: 02/10/22 15:38 Dose: 50 mls Levofloxacin/Dextrose (Levaquin 250mg/50 Ml Ivpb) 250 mg in 50 mls @ 50 mls/hr IV Q48H SHANNEN; Protocol Midodrine (Midodrine Hcl 5 Mg Tablet) 10 mg PO TID SHANNEN Last Admin: 02/10/22 13:18 Dose: Not Given Sodium Chloride (Sodium Chloride 0.9% 10ml Inj) 10 ml IV UD PRN PRN Reason: Diluant Tamsulosin HCl (Tamsulosin 0.4 Mg Sr Cap) 0.4 mg PO DAILY [facility] Last Admin: 02/10/22 08:28 Dose: Not Given Microbiology Results 01/25/22 16:15 Clean Catch Urine [place] Count - Final <10,000 CFU/ML. 01/25/22 16:15 Clean Catch Urine - Final MIXED JAYSON. Assessment/ Plan: Nephrology Persistent dyspnea Worsening weakness and fatigue Anorexia. He is refusing medications today Poor urine output in the setting of persistent hypotension No acute events overnight Vitals, medications, blood work and imaging reviewed in the chart. Mild distress. NCAT. MMM. Neck supple. BL Rales. RRR. Abd ND. No C/C. LE Edema 2+. Diffuse skin lesions and ecchymoses. Somnolent. Minimal speech. RIJ HD CVC. LIJ CVC. Zambrano with dark urine. MAURIZIO likely ATN CKD III with proteinuria -No NSAIDs -HD prn Hyponatremia -Encourage nutriton Hypomagnesemia -Replete prn DM II with CKD -RISS Severe malnutrition with anorexia -IV Albumin prn -Encourage nutrition -Nepro as tolerated Anemia in chronic illness Thrombocytopenia -Monitor CBC -Retacrit X1 GNR Sepsis/ Septic Shock Acute GNR cystitis -Continue Abx -Follow up cultures -Vasopressor support as needed; new central line placed yesterday -Caution with excess IVF; IV Albumin prn Acute respiratory failure -Bipap prn Greater than 30min patient care Case reviewed with Dr. Lo. Case reviwed with the daughter at the bedside. She is considering hospice care.
[2022-02-10 21:59] VITALS: O2SAT 90
--- NOTE | 2022-02-11 16:04 | P.DS ---
Admission Date: 01/25/22 Discharge Date: 02/11/22 Primary Care Provider: unknown Disposition: HOSPICE-MEDICAL FACILITY Reason for Admission: Respiratory distress hypotension - Problems (1) End of life care Status: Acute (2) UTI (urinary tract infection) Status: Acute Qualifiers: Urinary tract infection type: site unspecified Hematuria presence: without hematuria Qualified Code(s): N39.0 - Urinary tract infection, site not specified (3) ESRD (end stage renal disease) Status: Chronic (4) DM2 (diabetes mellitus, type 2) Status: Acute Qualifiers: Diabetes mellitus usp insulin use: without termite helper use Diabetes mellitus complication status: without complication Qualified Code(s): E11.9 - Type 2 diabetes mellitus without complications (5) HTN (hypertension) Status: Acute Qualifiers: Hypertension type: primary hypertension Qualified Code(s): I10 - Essential (primary) hypertension (6) Cephalic vein thrombosis Status: Acute (7) 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 The patient has been feeling weak, tired and poor appetite. Which prompted him to come to the hosptial. He was found to have a creatine of 5.3. Which would explain his symptoms. He is not a good historian. Not sure which meds he takes . Normally follows with Dr. Ward. Hospital Course: Patient was admitted for renal failure He his kidney function did not improve and he was started on dialysis. The patient went into septic shock due to a UTI. Was recovering. However he voiced to his daughter he did not want any more medications. stopped eating, The patient was admitted to hospice. They are taking him home as per the patients wishes. Wish him and the family the best of luck Thank you for allowing me to be a part of his care. Vital Signs/Physical Exam: Temp Pulse Resp BP Pulse Ox 97.6 F 76 24 H 96/52 L 89 L 02/10/22 16:00 02/10/22 18:00 02/10/22 18:00 02/10/22 18:00 02/10/22 18:00 General: Unresponsive HEENT: Atraumatic, PERRLA, EOMI Neck: Supple, JVD not distended Respiratory: Clear to auscultation bilaterally, Normal air movement Cardiovascular: Regular rate/rhythm, Normal S1 S2 Gastrointestinal: Normal bowel sounds, No tenderness Musculoskeletal: No tenderness Integumentary: No rashes Neurological: Normal speech, Normal tone, Normal affect Lymphatics: No axilla or inguinal lymphadenopathy Laboratory Data at Discharge: WBC 7.30 K/uL (4.3-10.9) 02/09/22 04:44 Hgb 8.5 g/dL (13.6-17.9) L D 02/09/22 04:44 Hct 25.4 % (39.6-49.0) L 02/09/22 04:44 Plt Count 59 K/uL (152-406) L 02/09/22 04:44 PT 27.8 SECONDS (9.5-12.5) H 02/09/22 13:36 INR 2.48 02/09/22 13:36 APTT 31.5 SECONDS (24.3-36.9) 02/09/22 13:36 Sodium 136 mmol/L (136-145) 02/09/22 13:36 Potassium 4.8 mmol/L (3.5-5.1) D 02/09/22 13:36 BUN 49 mg/dL (7-18) H 02/09/22 13:36 Creatinine 4.55 mg/dL (0.55-1.3) H 02/09/22 13:36 Glucose 89 mg/dL (74-106) 02/09/22 13:36 Uric Acid 6.8 mg/dL (3.5-7.2) D 02/05/22 04:50 Phosphorus 3.8 mg/dL (2.5-4.9) 02/06/22 04:50 Magnesium 1.8 mg/dL (1.8-2.4) 02/06/22 04:50 Total Bilirubin 4.2 mg/dL (0.2-1.0) H 02/09/22 13:36 AST 318 U/L (15-37) H* 02/09/22 13:36 ALT 32 U/L (12-78) 02/09/22 13:36 Alkaline Phosphatase 417 U/L (45-117) H 02/09/22 13:36 Triglycerides 179 mg/dL (<150) H 01/26/22 03:33 Cholesterol 121 mg/dL (<200) 01/26/22 03:33 HDL Cholesterol 14 mg/dL (40-60) L 01/26/22 03:33 Cholesterol/HDL Ratio 8.64 01/26/22 03:33 Lipase 283 U/L (73-393) 01/25/22 14:52 Home Medications: Amiodarone HCl [Cordarone*] 200 mg PO BID 06/05/21 Amlodipine [Norvasc*] 10 mg PO DAILY 06/05/21 Losartan Potassium 50 mg PO BID 06/05/21 Metformin HCl 1,000 mg PO BID 06/05/21 Metoprolol Tartrate 25 mg PO BID 06/05/21 Rosuvastatin [Crestor*] 10 mg PO BEDTIME 06/05/21 Albuterol Neb [Proventil 0.083% Neb Soln] 2.5 mg NEB Q6HP PRN amp 06/09/21 Apixaban [Eliquis *] 2.5 mg PO BID tablet 06/09/21 Baricitinib [Olumiant] 2 mg PO DAILY tablet 06/09/21 Docusate [Colace Cap*] 100 mg PO BID cap 06/09/21 Insulin -Regular Human [Novolin -R*] See Protocol SQ ACHS ml 06/09/21 Nepro Shake [Nepro*] 240 ml PO TID can 06/09/21 Ondansetron [Zofran*] 4 mg IV Q6HP PRN vial 06/09/21 dexAMETHasone [Decadron*] 4 mg IV Q8HR vial 06/09/21 hydroCHLOROthiazide [Hydrochlorothiazide*] 12.5 mg PO DAILY cap 06/09/21 levoFLOXacin [Levaquin*] 750 mg PO Q48H tab 06/09/21 Cholecalciferol (Vitamin D3) [Vitamin D3] 1 cap PO DAILY 01/26/22 Melatonin 3 mg PO BEDTIME 01/26/22 Diet: Regular Activity: Ad olga Followup: ZAC PEÑA [Primary Care Provider] - Physician Review: Patient Assessed, Agree with Above Assessment and Plan Time spent managing pt's care (in minutes): 45
[2022-02-12] MEDS ORDERED: Levofloxacin 250mg IV 250 MG/50 ML BAG IV SCH (09:00)
--- NOTE | 2022-02-12 14:57 | PN ---
Date of Progress Note: 02/08/2022 Subjective: The patient is lying in bed. No new acute event. Chart reviewed. Objective: Vital Signs: Reviewed. Lungs: Basal crackles. Heart: S1, S2. Regular. Abdomen: Soft. Bowel sounds present. Extremity: Trace edema. Laboratory Data: Reviewed. Assessment And Plan: 1.Pneumoniae. 2.Urinary tract infection. 3.Status post septic shock. The patient is improving. 4.End-stage renal disease. 5.Leukocytosis, improving. 6.Anemia of chronic disease. 7.Thrombocytopenia. Continue current treatment. We will follow the patient as needed. NF/MODL Voice ID: [id number] Report ID: [id number]
== END 2022-02-10 19:27 | disposition hospice, inpatient (51) | DRG 673 ==
LOC: ER 13:33 → ERHOLD 20:15 → 4TH 01-26 05:00 → 3RD-ICU 02-03 18:00 → 2ND 02-07 17:53 → 3RD-ICU 02-08 18:00
PROVIDERS: ADMIT Internal Medicine; ATTEND Internal Medicine
PROC: 02HV33Z Insertion of Infusion Device into Superior Vena Cava, Percutaneous Approach (ICD-10-PCS; 2022-01-31)
PROC: 5A1D70Z Performance of Urinary Filtration, Intermittent, Less than 6 Hours Per Day (ICD-10-PCS; 2022-01-31)
PROC: 0JH63XZ Insertion of Tunneled Vascular Access Device into Chest Subcutaneous Tissue and Fascia, Percutaneous Approach (ICD-10-PCS; principal; 2022-01-31 13:45)
PROC: 02H633Z Insertion of Infusion Device into Right Atrium, Percutaneous Approach (ICD-10-PCS; 2022-02-09)
PROC: 5A09457 Assistance with Respiratory Ventilation, 24-96 Consecutive Hours, Continuous Positive Airway Pressure (ICD-10-PCS; 2022-02-09)
DX: N17.9 Acute kidney failure, unspecified (principal); R65.21 Severe sepsis with septic shock; E43 Unspecified severe protein-calorie malnutrition; A41.50 Gram-negative sepsis, unspecified; A41.01 Sepsis due to Methicillin susceptible Staphylococcus aureus; J96.00 Acute respiratory failure, unspecified whether with hypoxia or hypercapnia; I12.0 Hypertensive chronic kidney disease with stage 5 chronic kidney disease or end stage renal disease; E87.2 Acidosis; N39.0 Urinary tract infection, site not specified; R18.8 Other ascites; E87.1 Hypo-osmolality and hyponatremia; N13.8 Other obstructive and reflux uropathy; I24.8 Other forms of acute ischemic heart disease; I82.431 Acute embolism and thrombosis of right popliteal vein; N18.6 End stage renal disease; E11.22 Type 2 diabetes mellitus with diabetic chronic kidney disease; E11.51 Type 2 diabetes mellitus with diabetic peripheral angiopathy without gangrene; D63.1 Anemia in chronic kidney disease; D69.6 Thrombocytopenia, unspecified; E83.42 Hypomagnesemia; E88.09 Other disorders of plasma-protein metabolism, not elsewhere classified; D63.8 Anemia in other chronic diseases classified elsewhere; I25.10 Atherosclerotic heart disease of native coronary artery without angina pectoris; N40.1 Benign prostatic hyperplasia with lower urinary tract symptoms; E78.5 Hyperlipidemia, unspecified; I48.91 Unspecified atrial fibrillation; I08.1 Rheumatic disorders of both mitral and tricuspid valves; J44.9 Chronic obstructive pulmonary disease, unspecified; E87.5 Hyperkalemia; R63.0 Anorexia; R00.0 Tachycardia, unspecified; B96.89 Other specified bacterial agents as the cause of diseases classified elsewhere; Z66 Do not resuscitate; Z51.5 Encounter for palliative care; Z68.29 Body mass index [BMI] 29.0-29.9, adult; Z79.4 Long term (current) use of insulin; Z79.84 Long term (current) use of oral hypoglycemic drugs; Z86.16 Personal history of COVID-19; Z79.01 Long term (current) use of anticoagulants; Z79.899 Other long term (current) drug therapy; Z87.891 Personal history of nicotine dependence; Z20.822 Contact with and (suspected) exposure to COVID-19
CPT/HCPCS: 36415; 71045; 71250; 74018; 74176; 76000; 76770; 80048; 80053; 80061; 80069; 80076; 80202; 81001; 81003; 81015; 82140; 82533; 82550; 82570; 82805; 82947; 83036; 83520; 83605; 83690; 83735; 83880; 84100; 84145; 84156; 84300; 84439; 84443; 84484; 84550; 85025; 85379; 85610; 85730; 86021; 86038; 86160; 86317; 86335; 86704; 86705; 86706; 87040; 87070; 87077; 87086; 87088; 87186; 87205; 87340; 87811; 90935; 93005; 93306; 93307; 93970; 93971; 94002; 94003; 94660; 94760; 96360; 96361; 97110; 97116; 97161; 97164; 97530; 99285; C1752; C9113; J0690; J1644; J1650; J1720; J1940; J2001; J2704; J3370; J7030; J7040; J7050; J7060; P9047

== ENCOUNTER 2022-02-10 19:34 | Inpatient (IN) | payer OTHER ==
--- OUTSIDE RECORDS SUMMARY | 2022-02-10 19:52 | XMS REPORT | Continuity of Care Document ---
:1945 Author Organization [facility] t Address [address] [place] [address] Care Team Providers Name Role Phone Viet Ness MD Primary Care Physician WASHINGTON LYNCH EMILE Attending Clinician Unavailable [id number] Attending Clinician Unavailable ROSS EPPERSON Attending Clinician UnavailFranco Gonsalez Attending Clinician Deonte Najera Attending Clinician ISMAEL WAGNER Attending Clinician Unavailable Serg Martines MD Attending Clinician Unavailable SERG MARTINES Attending Clinician Unavailable CHARITO MCGEE Attending Clinician Unavailable MARTY HERNANDEZ Attending Clinician Unavailable JOHNNY GIBBS Attending Clinician Unavailable WASHINGTON LYNCH EMILE Admitting Clinician Unavailable [id number] Admitting Clinician Unavailable JOHAN ROGERS Admitting Clinician Unavailable Korin Ferrell Admitting Clinician Payers Payer Name Policy Type Policy Number Effective Date Expiration Date S federicosummer [facility] [id number] [facility] MISC [id number] MEDICARE A B [id number] 2010 00:00:00 [employer] [place] [id number] 2010 00:00:00 MEDICARE PART A [id number] \\T\\ B - MEDICARE MEDIGAP - MUTUAL [id number] 2010 [facility] 00:00:00 Problems Condition Condition Condition Status Onset Resolution Last Treating Co mments Source Name Details Category Date Date Treatment Clinician Date MEDICAL MEDICAL Diagnosis Active 2022-01-01 Memoria PROBLEM - PROBLEM - 01-01 15:09:00 l MAJOR MAJOR 00:00: Gays Active 00 01/01/2022 [facility] ACUTE ON ACUTE ON Diagnosis Active 2022-01-04 Memoria CHRONIC CHRONIC 01-01 11:16:00 l RENAL RENAL 00:00: [place] FAILURE FAILURE 00 Active 01/01/2022 [facility] Acute Acute Disease Active [facility] resp[facility] respirator 5-09 [facility] y failure y failure 00:00: Medi jing with with 00 Center hypoxia hypoxia Pneumonia Pneumonia Disease [facility] Pneumonia Pneumonia Disease Active 2019- [facility] COVID-19 COVID-19 00:00: Medica l virus virus 00 Center No known No known Disease Metho di active active st problems problems Hospit a l Chronic Chronic Problem Active 2022-02-09 Me moria kidney kidney 03:35:51 l disease disease [place]ier stage 3 stage 3 (disorder) (disorder) Active Problem 02/09/2022 [facility] Decrease Decrease Problem Active 2022-02-09 Memoria in in 03:35:51 l appetite appetite Ernesto n (finding) (finding) Active Problem 02/09/2022 [facility] Diabetes Diabetes Problem Active 2022-02-09 Memoria mellitus mellitus 03:35:51 l (disorder) (disorder) He rmann Active Problem 02/09/2022 [facility] Fall in Fall in Problem Active 2022-02-09 Me moria home home 03:35:51 l (finding) (finding) Herm bob Active Problem 02/09/2022 [facility] Fatigue Fatigue Problem Active 2022-02-09 Me moria (finding) (finding) 03:35:51 l Active [place] Problem 02/09/2022 [facility] Hyperlipid Hyperlipi Problem Active 2022-02-09 Memoria emia demia 03:35:51 l (disorder) (disorder) He rmann Active [facility]ensi Hypertens Problem Active 2022-02-09 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:35:51 l 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, disorder, Herm bob systemic systemic arterial arterial (disorder) (disorder) Active Problem 02/09/2022 [facility] Malaise Malaise Problem Active 2022-02-09 Me moria (finding) (finding) 03:35:51 l Active Gays Problem 02/09/2022 [facility] Paroxysmal Paroxysma Problem Active 2022-02-09 Memoria atrial l atrial 03:35:51 l fibrillati fibrillati He rmann on on (disorder) (disorder) Active Problem 02/09/2022 [facility] Acute-on-c Acute-on- Problem Active 2022-02-09 Memoria hronic chronic 03:35:51 l renal renal Gays failure failure (disorder) (disorder) Active Problem 02/09/2022 [facility] Post-disch Post-disc Problem Active 2022-02-09 Memoria arge harge 03:35:51 l follow-up follow-up Karolina rojas (finding) (finding) Active Problem 02/09/2022 [facility] ACUTE ACUTE Diagnosis Active 2022-01-04 Mem oria KIDNEY KIDNEY 11:16:00 l FAILURE, FAILURE, Ernesto steiner UNSPECIFIE UNSPECIFIE D D Active [facility] Acute Acute Problem 2022-01-18 2022-01-18 M emoria [...] other than malignant malignant neoplasm neoplasm 01/07/2022 01/11/2022 [facility] Group Hypo-osmol Hypo-osmo Problem 2022-01-07 2022-01-07 Memoria ality and lality and 01-02 22:11:15 22:11:15 l hyponatrem hyponatrem 18:44: He eric vázquez ia 03 01/02/2022 01/07/2022 [facility] Anorexia Problem 2021-12-17 2021-12-17 Memoria 12/14/202112-14 02:25:13 02:25:13 l 12/17/2021 18:50: Ernesto steiner MH 00 Medical Group Unspecifie Unspecifi Problem 2021-12-17 2021-12-17 Memoria d fall, ed fall, 12-14 02:25:13 02:25:13 l initial initial 18:50: Yunier encounter encounter 00 12/14/2021 12/17/2021 [facility] Type 2 Type 2 Problem 2021-12-17 [facility] diabetes 12-14 02:25:13 02:25:13 l mellitus mellitus 18:49: Ernesto steiner without without 00 complicati complicati ons ons 12/14/2021 12/17/2021 [facility] Group Chronic Chronic Problem 2021-12-17 2021-12-17 Memoria kidney kidney 12-14 02:25:13 02:25:13 l disease, disease, 18:49: Ernesto steiner stage 3 stage 3 00 unspecifie unspecifie d d 12/14/2021 Medical Group Other Other Problem 2021-12-17 2021-12-17 [...] Date Clinician NKA Allergy Active 2019-0 ENCCLR -18 18:55: 09 NKA Allergy Active 2019-0 ENCCLR -18 18:55: 09 NKA Allergy Active [...] 5-18 18:55: 09 NO KNOWN Allergy Active [facility] Family History Family Member Diagnosis Comments Start Date Stop Date Source Natural father No Known Problems Met [facility] Natural mother No Known Problems Met [facility] Social History Social Habit Start Date Stop Date Quantity Comments Source History SDOH [facility] Alcohol Std Drinks [facility] History SDOH [facility] Alcohol Binge [facility] ter History SDOH [facility] Alcohol Frequency [facility] Social History 2022-01-02 2022-01-02 [facility] 05:56:57 05:56:57 History SDOH 2020-06-02 2020-06-[address] [facility] Alcohol Comment 00:00:00 00:00:00 Medical C enter Alcohol intake 2020-06-02 2020-06-02 [facility] (finding) Tobacco use and 2019-09-18 2019-09-[address] [facility] [address] [facility] exposure 00:00:00 00:00:00 Medical Center History of tobacco 1979-09-[address] [facility] use 00[facility]00:00 [facility] Center Sex Assigned At [address] 00:00[facility]00 [facility] Center Smoking Status Start Date Stop Date Source Former smoker 2019-09-18 00:00:00 2019-09-18 00:00:00 [facility] Medications Ordered Filled Start Stop Current Ordering Indication Dosage Frequency Signature Comments Components Source Medication Medication Date Date Medication? Clinician (SIG) Name Name heparin No Notes: Memoria 8-11 porcine l 21:00: heparin Yunier heparin No Notes: Memoria 8-11 porcine l 21:00: heparin Gays 00 normal No 1,000 mL, Memori a saline 0.9% 8-10 1,000 l (Bolus) IV 18:51: ml/hr, Billie nn 00 Infuse Over: 1 hr, Route: IV, 1,000, Drug form: INJ, ONCE, Priority: STAT, Dosing Weight 88.318 kg, Start date: 01/02/22 13:51:00 CDT, Stop date: 01/02/22 13:51:00 CDT, 0 normal No 1,000 mL, Memori a saline [...] Size: 1000 mg Product Wasted: ___ mg Rocephin + 0 No Notes: Memor ia Sodium 8-10 (Same As: l Chloride 17:00: Rocephin). Her kramer 0.9% IV 100 00 Use with mL 100 mL NS and infuse over 30 min MEDICATION WASTE Product Size: 1000 mg Product Wasted: ___ mg docusate 2021-0 No Notes: Memoria 8-10 (Same as: l 14:00: Colace) Yunier 00 (Do Not Crush) sodium 2021-0 No Notes: Memoria bicarbonate 8-10 "Dissolve l 14:00: tablet in Gays 00 a glass of water prior to oral administra tion. STOMACH WARNING: To avoid serious injury, do not take until tablet is completely dissolved. It is very important not to take this product when overly full from food or drink." docusate 2021-0 No Notes: Memoria 8-10 (Same as: l 14:00: Colace) Yunier 00 (Do Not Crush) sodium 2021-0 No Notes: Memoria bicarbonate 8-10 "Dissolve l 14:00: tablet in Gays 00 a glass of water prior to oral administra tion. STOMACH WARNING: To avoid serious injury, do not take until tablet is completely dissolved. It is very important not to take this product when overly full from food or drink." Sodium 2021-0 No 1,000 mL, Memori a Chloride 8-10 1,000 l 0.9% 09:04: ml/hr, Gays (Bolus) IV 00 Infuse Over: 1 hr, Route: IV, 1,000, Drug form: INJ, ONCE, Priority: STAT, Dosing Weight 88.318 kg, Start date: 01/02/22 4:04:00 CDT, Stop date: 01/02/22 4:04:00 CDT, 0 Sodium 2-0 No 1,000 mL, Memori a Chloride 8-10 1,000 l 0.9% 09:04: ml/hr, Gays (Bolus) IV 00 Infuse Over: 1 hr, Route: IV, 1,000, Drug form: INJ, ONCE, Priority: STAT, Dosing Weight 88.318 kg, Start date: 01/02/22 4:04:00 CDT, Stop date: 01/02/22 4:04:00 CDT, 0 senna 2021-0 No Notes: Memoria 8-10 (Same as: l 02:00: Senokot) Yunier 00 senna 2021-0 No Notes: Memoria 8-10 (Same as: l 02:00: Senokot) Yunier D10W 2021-0 No 125 mL, Memoria (bolus) IV 8-10 999 ml/hr, l 01:13: Route: IV, Drug Form: INJ, Dosing Weight 90.909, kg, PRN, PRN Blood Glucose Results, Start date: 01/01/22 20:13:00 CDT, Duration: 30 day, Stop date: 01/31/22 20:12:00 CDT, Infuse over: 0.1 hr, 0 D10W 2021-0 No 125 mL, Memoria (bolus) IV 8-10 999 ml/hr, l 01:13: Route: IV, Drug Form: INJ, Dosing Weight 90.909, kg, PRN, PRN Blood Glucose Results, Start date: 01/01/22 20:13:00 CDT, Duration: 30 day, Stop date: 01/31/22 20:12:00 CDT, Infuse over: 0.1 hr, 0 Dextrose 2021-0 No 25 mL, Memoria 50% Syringe 810 Route: l (D50W) 00:23: IVP, Dosing Weight 90.909, kg, PRN, PRN Blood Glucose Results, Start date: 01/01/22 19:23:00 CDT, Duration: 30 day, Stop date: 01/31/22 19:22:00 CDT glucagon 2021-0 No 1 mg, Memoria 810 Route: IM, l 00:23: Drug form: Gays 00 PDR/INJ, PRN, Dosing Weight 90.909, kg, PRN Blood Glucose Results, Start date: 01/01/22 19:23:00 CDT, Duration: 30 day, Stop date: 01/31/22 19:22:00 CDT, 0 insulin 2022-0 No Notes: Memoria lispro 8-10 (Same as: l 00:23: Humalog) Yunier 00 Roll in palms of hands gently; Do not shake vigorously . WASTE: F/P - Black; E - Municipal Trash Bin Stable for 28 days at room temperatur e. Expires in days from ____Date Dextrose 2022-0 No 25 mL, Memoria 50% Syringe 8-10 Route: l (D50W) 00:23: IVP, Yunier 00 Dosing Weight 90.909, kg, PRN, PRN Blood Glucose Results, Start date: 01/01/22 19:23:00 CDT, Duration: 30 day, Stop date: 01/31/22 19:22:00 CDT glucagon 2022-0 No 1 mg, Memoria 8-10 Route: IM, l 00:23: Drug form: Gays 00 PDR/INJ, PRN, Dosing Weight 90.909, kg, PRN Blood Glucose Results, Start date: 01/01/22 19:23:00 CDT, Duration: 30 day, Stop date: 01/31/22 19:22:00 CDT, 0 insulin 2022-0 No Notes: Memoria lispro 8-10 (Same as: l 00:23: Humalog) Gays 00 Roll in palms of hands gently; Do not shake vigorously . WASTE: F/P - Black; E - Municipal Trash Bin Stable for 28 days at room temperatur e. Expires in days from ____Date Dextrose 2022-0 No 25 mL, Memoria 50% Syringe 8-10 Route: l (D50W) 00:19: IVP, Yunier 00 Dosing Weight 90.909, kg, PRN, PRN Blood Glucose Results, Start date: 01/01/22 19:19:00 CDT, Duration: 30 day, Stop date: 01/31/22 19:18:00 CDT glucagon 2022-0 No 1 mg, Memoria 8-10 Route: IM, l 00:19: Drug form: Gays 00 PDR/INJ, PRN, Dosing Weight 90.909, kg, PRN Blood Glucose Results, Start date: 01/01/22 19:19:00 CDT, Duration: 30 day, Stop date: 01/31/22 19:18:00 CDT, 0 ondansetron 2021-0 No Notes: Mukesh edita 8-10 (Same as: l 00:19: Zofran) MEDICATION WASTE Product Size: 4 mg Product Wasted: ___ mg Sodium 2021-0 No 1,000 mL, Memori a Chloride -10 Rate: 100 l 0.9% IV 00:19: ml/hr, Yunier 1,000 mL 00 Infuse over: 10 hr, Route: IV, Dosing Weight 88.318 kg, Total Volume: 1,000, Start date: 01/01/22 19:19:00 CDT, Duration: 30 day, Stop date: 01/31/22 19:20:00 CDT, BSA: 2.13 m2, 0 Saline 2021-0 No Notes: Memoria Flush 0.9% -10 (Same as: l 00:19: BD Posiflush) Dextrose 2021-0 No 25 mL, Memoria 50% Syringe 8-10 Route: l (D50W) 00:19: IVP, Dosing Weight 90.909, kg, PRN, PRN Blood Glucose Results, Start date: 01/01/22 19:19:00 CDT, Duration: 30 day, Stop date: 01/31/22 19:18:00 CDT glucagon 2021-0 No 1 mg, Memoria 8-10 Route: IM, l 00:19: Drug form: PDR/INJ, PRN, Dosing Weight 90.909, kg, PRN Blood Glucose Results, Start date: 01/01/22 19:19:00 CDT, Duration: 30 day, Stop date: 01/31/22 19:18:00 CDT, 0 ondansetron 2021-0 No Notes: Mukesh edita 8-10 (Same as: l 00:19: Zofran) MEDICATION WASTE Product Size: 4 mg Product Wasted: ___ mg Sodium 2021-0 No 1,000 mL, Memori a Chloride 8-10 Rate: 100 l 0.9% IV 00:19: ml/hr, Yunier 1,000 mL 00 Infuse over: 10 hr, Route: IV, Dosing Weight 88.318 kg, Total Volume: 1,000, Start date: 01/01/22 19:19:00 CDT, Duration: 30 day, Stop date: 01/31/22 19:20:00 CDT, BSA: 2.13 m2, 0 Saline 2021-0 No Notes: Memoria Flush 0.9% 8-10 (Same as: l 00:19: BD Gays 00 Posiflush) NS (Bolus) 2021-0 No 500 mL, Mukesh edita IV 8-09 500 ml/hr, l 21:58: Infuse Gays 00 Over: 1 hr, Route: IV, 500, Drug form: INJ, ONCE, Priority: STAT, Dosing Weight 90.909 kg, Start date: 01/01/22 16:58:00 CDT, Stop date: 01/01/22 16:58:00 CDT, 0 NS (Bolus) 2021-0 No 500 mL, Mukesh edita IV 8-09 500 ml/hr, l 21:58: Infuse Gays 00 Over: 1 hr, Route: IV, 500, Drug form: INJ, ONCE, Priority: STAT, Dosing Weight 90.909 kg, Start date: 01/01/22 16:58:00 CDT, Stop date: 01/01/22 16:58:00 CDT, 0 NS (Bolus) 2021-0 No 500 mL, Mukesh edita IV 8-09 500 ml/hr, l 20:37: Infuse Gays 00 Over: 1 hr, Route: IV, ONCE, Priority: STAT, Dosing Weight 90.909 kg, Start date: 01/01/22 15:37:00 CDT, Stop date: 01/01/22 15:37:00 CDT NS (Bolus) 2021-0 No 500 mL, Mukesh edita IV 8-09 500 ml/hr, l 20:37: Infuse Yunier 00 Over: 1 hr, Route: IV, ONCE, Priority: STAT, Dosing Weight 90.909 kg, Start date: 01/01/22 15:37:00 CDT, Stop date: 01/01/22 15:37:00 CDT losartan 25 Yes 25 mg = 1 M emoria mg oral 7-22 tab, PO, l tablet 19:07: BID, # 180 Billie nn 00 tab, 0 Refill(s), other losartan 25 Yes 25 mg = 1 M emoria mg oral 7-22 tab, PO, l tablet 19:07: BID, # 180 Billie nn 00 tab, 0 Refill(s), other Zinc Yes See Memoria 7-22 Instructio l 18:16: ns, 50 mg Yunier 00 PO Daily, 0 Refill(s) Zinc Yes See Memoria 7-22 Instructio l 18:16: ns, 50 mg Gays 00 PO Daily, 0 Refill(s) valsartan No 160 mg = 1 Me moria 160 mg oral 7-22 tab, PO, l tablet 18:15: Daily, 0 Yunier 00 Refill(s) Vitamin D3 Yes 50 Memoria 7-22 microgram, l 18:15: PO, Daily, Yunier 00 0 Refill(s) valsartan No 160 mg = 1 Me moria 160 mg oral 7-22 tab, PO, l tablet 18:15: Daily, 0 Yunier 00 Refill(s) Vitamin D3 Yes 50 Memoria 7-22 microgram, l 18:15: PO, Daily, Yunier 00 0 Refill(s) rosuvastati Yes 10 mg = 1 M emoria n 10 mg -22 tab, PO, l oral tablet 18:14: Daily, 0 He rmann 00 Refill(s) hydrochloro Yes 1 tab, PO, Memoria thiazide-sp -22 Daily, 0 l ironolacton 18:14: Refill(s) H ermann e 25 mg-25 00 mg oral tablet Tradjenta 5 No 5 mg = 1 Me moria mg oral 7-22 tab, PO, l tablet 18:14: Daily, 0 Gays 00 Refill(s) rosuvastati Yes 10 mg = 1 M emoria n 10 mg 7-22 tab, PO, l oral tablet 18:14: Daily, 0 He rmann 00 Refill(s) hydrochloro Yes 1 tab, PO, Memoria thiazide-sp 12-14 Daily, 0 l ironolacton 18:14: Refill(s) H ermann e 25 mg-25 00 mg oral tablet Tradjenta 5 No 5 mg = 1 Me moria mg oral 12-14 tab, PO, l tablet 18:14: Daily, 0 Yunier 00 Refill(s) metFORMIN Yes 1,000 mg = Me moria 1000 mg 12-14 1 tab, PO, l oral tablet 18:13: Daily, 0 He rmann 00 Refill(s) metoprolol Yes 25 mg = 1 Me moria tartrate 25 12-14 tab, PO, l mg oral 18:13: BID, 0 Gays tablet 00 Refill(s) metFORMIN Yes 1,000 mg = Me moria 1000 mg 12-14 1 tab, PO, l oral tablet 18:13: Daily, 0 He rmann 00 Refill(s) metoprolol Yes 25 mg = 1 Me moria tartrate 25 12-14 tab, PO, l mg oral 18:13: BID, 0 Gays tablet 00 Refill(s) magnesium Yes 200 mg = 1 Me moria glycinate - tab, PO, 0 l 200 mg oral 18:12: Refill(s) H ermann tablet 00 melatonin Yes 3 mg, PO, Mem oria 12-14 Bedtime, 0 l 18:12: Refill(s) Gays 00 magnesium Yes 200 mg = 1 Me moria glycinate - tab, PO, 0 l 200 mg oral 18:12: Refill(s) H ermann tablet 00 melatonin Yes 3 mg, PO, Mem oria 12-14 Bedtime, 0 l 18:12: Refill(s) Yunier 00 hydrochloro No 12.5 mg = M emoria thiazide 12-14 1 cap, PO, l 12.5 mg 18:11: Daily, 0 Ernesto n oral 00 Refill(s) capsule hydrochloro No 12.5 mg = M emoria thiazide 7-22 1 cap, PO, l 12.5 mg 18:11: Daily, 0 Ernesto n oral 00 Refill(s) capsule glyBURIDE 5 0 No 5 mg = 1 Me moria mg oral 7-22 tab, PO, l tablet 18:09: BID, 0 Gays 00 Refill(s) hydrALAZINE 0 No 25 mg = 1 M emoria 25 mg oral 7-22 tab, PO, l tablet 18:09: TID, 0 Yunier 00 Refill(s) glyBURIDE 5 0 No 5 mg = 1 Me moria mg oral 7-22 tab, PO, l tablet 18:09: BID, 0 Gays 00 Refill(s) hydrALAZINE 0 No 25 mg = 1 M emoria 25 mg oral 7-22 tab, PO, l tablet 18:09: TID, 0 Gays 00 Refill(s) atorvastati 0 No 20 mg = 1 M emoria n 20 mg 7-22 tab, PO, l oral tablet 18:08: Daily, 0 He rmann 00 Refill(s) bumetanide 2021-0 Yes 2 mg = 1 Mem oria 2 mg oral 7-22 tab, PO, l tablet 18:08: BID, 0 Yunier 00 Refill(s) atorvastati 2021-0 No 20 mg = 1 M emoria n 20 mg 7-22 tab, PO, l oral tablet 18:08: Daily, 0 He rmann 00 Refill(s) bumetanide 2021-0 Yes 2 mg = 1 Mem oria 2 mg oral 7-22 tab, PO, l tablet 18:08: BID, 0 Yunier 00 Refill(s) AMIODarone 2021-0 Yes 200 mg = 1 M emoria 200 mg oral 7-22 tab, PO, l tablet 18:07: Daily, 0 Yunier 00 Refill(s) amLODIPine 2021-0 Yes 10 mg = 1 Me moria 10 mg oral 7-22 tab, PO, l tablet 18:07: Daily, 0 U[place] 00 Refill(s) AMIODarone 2021-0 Yes 200 mg = 1 M emoria 200 mg oral 7-22 tab, PO, l tablet 18:07: Daily, 0 Yunier 00 Refill(s) amLODIPine 2021-0 Yes 10 mg = 1 Me moria 10 mg oral 7-22 tab, PO, l tablet 18:07: Daily, 0 Gays 00 Refill(s) metFORMIN 2020-0 Yes 1000mg Take [facility],000 [facility] [...] Center mouth 2 (two) times daily. bumetanide 2019-2020- No 2mg Take [address] [facility] (BUMEX) [...] tablet 08 times a l day. naproxen 2017-0 Yes [id number] 500mg Q.5D Take 1 [facility] ethod[facility] (NAPROSYN) 1-[address] 500 MG 00:00: (500 mg [facility] tablet 00 total) by l mouth 2 (two) times a day with meals. naproxen 2016-0 Yes [id number] 500mg Q.5D Take 1 [facility] (NAPROSYN) 1-[address] 500 MG 00:00: (500 mg [facility]osp[facility] tablet 00 total) by l mouth 2 (two) times a day with meals. naproxen 2016-0 Yes [id number] 500mg Q.5D Take 1 M ethodi (NAPROSYN) 1-[address] 500 MG 00:00: (500 mg [facility] tablet 00 total) by l mouth 2 (two) times a day with meals. naproxen 2017-0 Yes [id number] 500mg Q.5D Take 1 [facility] (NAPROSYN) 1-[address] 500 MG 00:00: (500 mg [facility] tablet 00 total) by l mouth 2 (two) times a day with meals. Immunizations Ordered Immunization Filled Immunization Date Status Commen ts Source Name Name [place] [id number] 2020-06-27 Com[id number]27 Completed Mukesh rial [place]un[place] [id number] 00:00:00 [place] [address] 2020-06-27 Completed [facility] t MRNA VACCINATION 00:00:00 [place] [address] 2020-06-27 Completed [facility] MRNA VACCINATION 00:00:00 [place] [address] 2020-06-27 Completed [id number] 2020-06-27 Completed Mukesh rial Yunier [id number] 00:00:00 [place] [address] 2020-05-30 Completed [id number] 2020-05-30 Completed Mukesh rial Yunier [id number] 00:00:00 [place] [address] 2020-05-30 Completed [facility] t MRNA VACCINATION 00:00:00 [place] [address] 2020-05-30 Completed [facility] MRNA VACCINATION 00:00:00 [place] [address] 2020-05-30 Completed [id number] 2020-05-30 Completed Mukesh rial Gays [id number] 00:00:00 Vital Signs Vital Name Observation Time Observation Value Comments Source HEIGHT 2019-09-15 00:00:00 182.9 cm WEIGHT 2019-09-15 00:00:00 117.2 kg HEIGHT 2020-06-02 11:47:00 182.9 cm WEIGHT 2020-06-02 11:47:00 122.471 kg HEIGHT 2020-06-02 11:47:00 182.9 cm WEIGHT 2020-06-02 11:47:00 122.471 kg HEIGHT 2019-09-15 00:00:00 182.9 cm WEIGHT 2019-09-15 00:00:00 117.2 kg Heart Rate 2022-01-15 18:11:00 [facility] Systolic (mm Hg) 2022-01-15 18:11:00 Mukesh rial Gays Diastolic (mm Hg) 2022-01-15 18:11:00 Mem orial Gays Height 2022-01-15 18:11:00 182.88 cm [facility] Weight 2022-01-15 18:11:00 [facility] BMI Calculated 2022-01-15 18:11:00 [facility] al Gays Heart Rate 2022-01-08 19:29:00 [facility] [place] Systolic (mm Hg) 2022-01-08 19:29:00 Mukesh rial Gays Diastolic (mm Hg) 2022-01-08 19:29:00 Mem orial [place] Height 2022-01-08 19:29:00 182.88 cm [facility] [place] Weight 2022-01-08 19:29:00 [facility] [place] BMI Calculated 2022-01-08 19:29:00 [facility] al Gays Temperature Oral (F) 2022-01-05 17:12:00 97.8 F [facility] Heart Rate 2022-01-05 17:12:00 [facility] [place] Systolic (mm Hg) 2022-01-05 17:12:00 Mukesh rial Gays Diastolic (mm Hg) 2022-01-05 17:12:00 Mem orial Gays Respitory Rate 2022-01-05 17:12:00 Memori al Gays Temperature Oral (F) 2022-01-05 13:13:00 98.8 F [facility] Heart Rate 2022-01-05 13:13:00 [facility] [place] Systolic (mm Hg) 2022-01-05 13:13:00 Mukesh rial Yunier Diastolic (mm Hg) 2022-01-05 13:13:00 Mem orial Yunier Respitory Rate 2022-01-05 13:13:00 Memori al [place] Temperature Oral (F) 2022-01-05 08:00:00 98.4 F [facility] [place] Heart Rate 2022-01-05 08:00:00 [facility] [place] Respitory Rate 2022-01-05 08:00:00 [facility]ori al [place] Systolic (mm Hg) 2022-01-05 08:00:00 Mukesh rial Yunier Diastolic (mm Hg) 2022-01-05 08:00:00 Mem orial Gays Height 2022-01-04 17:39:00 182.88 cm [facility] [place] Height 2022-01-02 05:54:00 182.88 cm [facility] Weight 2022-01-02 05:54:00 [facility] BMI Calculated 2022-01-02 05:54:00 [facility] al [place] Height 2022-01-01 19:26:00 185.42 cm [facility] BMI Calculated 2022-01-01 19:26:00 [facility] al [place] Weight 2022-01-01 19:26:00 [facility] Yunier Temperature Oral (F) 2021-12-14 18:22:00 98.1 F [facility] Gays Heart Rate 2021-12-14 18:22:00 [facility] [place] Systolic (mm Hg) 2021-12-14 18:22:00 Mukesh rial Yunier Diastolic (mm Hg) 2021-12-14 18:22:00 Mem orial Gays Height 2021-12-14 18:22:00 182.88 cm [facility] [place] Weight 2021-12-14 18:22:00 [facility] BMI Calculated 2021-12-14 [facility] Procedure Date / Time Performing Clinician Source Performed B-TYPE NATRIURETIC FACTOR 2022-02-03 15:22:[address] [facility] Center HEPATITIS B SURFACE 2022-01-31 15:28:[address] [facility] HEPATITIS B SURFACE 2022-01-31 15:28:[address] [facility]TIBODY [facility] HEPATITIS B CORE 2022-01-31 15:28:[address] [facility] CT CHEST WITHOUT IV 2020-09-05 13:03:00 Lillian, Dipaben [facility] Stomach operation [facility] nn Ankle reconstruction [facility] Shoulder repair [facility] Plan of Care Planned Activity Planned Date Details Comments Source Future Scheduled 2022-01-24 INFLUENZA VACCINE (#1) [facility] 00:00:00 [code = INFLU[facility]ZA Medical Ce [facility]ter VACCINE (#1)] Future Scheduled 2022-01-24 INFLUENZA VACCINE (#1) [facility] 00:00:00 [code = INFLUENZA Medical Ce [facility]ter VACCINE (#1)] Future Scheduled 2022-01-24 INFLUENZA VACCINE (#1) [facility] 00:00:00 [code = INFLUENZA Medical Ce nter VACCINE (#1)] Future Scheduled 2022-01-22 HEPATITIS B VACCINES Met [facility] Test 02:26:34 (1 of 3 - 3-dose series) [code = HEPATITIS B VACCINES (1 of 3 - 3-dose series)] Future Scheduled 2022-01-22 65+ [facility] Test 02:26:34 VACCINE (1 - PCV) [code = 65+ PNEUMOCOCCAL VACCINE (1 - PCV)] Future Scheduled 2022-01-22 Hepatitis C screening [facility] Test 02:26:34 (procedure) [code = 312850373] Future Scheduled 2022-01-22 SHINGLES VACCINES (1 Met [facility] Test 02:26:34 of 2) [code = SHINGLES VACCINES (1 of 2)] Future Scheduled 2022-01-22 COLONOSCOPY SCREENING [facility] Test 02:26:34 [code = COLONOSCOPY SCREENING] Future Scheduled 2022-01-22 COVID-19 VACCINE (3 - [facility] Hospital Test 02:26:34 Booster for Moderna series) [code = COVID-19 VACCINE (3 - Booster for Moderna series)] Future Scheduled 2022-01-22 INFLUENZA VACCINE [facility] Hospital Test 02:26:34 [code = INFLUENZA VACCINE] Future Scheduled 2022-01-22 HEPATITIS B VACCINES Met [facility] Hospital Test 02:26:34 (1 of 3 - 3-dose series) [code = HEPATITIS B VACCINES (1 of 3 - 3-dose series)] Future Scheduled 2022-01-22 65+ PNEUMOCOCCAL [facility] Test 02:26:34 VACCINE (1 - PCV) [code = 65+ PNEUMOCOCCAL VACCINE (1 - PCV)] Future Scheduled 2022-01-22 Hepatitis C screening [facility] Test 02:26:34 (procedure) [code = 692895029] Future Scheduled 2022-01-22 SHINGLES VACCINES (1 Met [facility] Hospital Test 02:26:34 of 2) [code = SHINGLES VACCINES (1 of 2)] Future Scheduled 2022-01-22 COLONOSCOPY SCREENING [facility] Test 02:26:34 [code = COLONOSCOPY SCREENING] Future Scheduled 2022-01-22 COVID-19 VACCINE (3 - Me [facility] Hospital Test 02:26:34 Booster for Moderna series) [code = COVID-19 VACCINE (3 - Booster for Moderna series)] Future Scheduled 2022-01-22 INFLUENZA VACCINE Method [facility] Hospital Test 02:26:34 [code = INFLUENZA VACCINE] Future Scheduled 2021-05-26 F[address]S [address]ENING [facility] Test 00:00:00 [code = FALLS RISK Medical C enter SCREENING] Future Scheduled 2021-05-[address] [facility] Test 00:00:00 (12+) [code = Medical Center DEPRESSION SCREENING (12+)] Future Scheduled 2021-05-[address] [facility] Test 00:00:00 (12+) [code = Medical Center DEPRESSION SCREENING (12+)] Future Scheduled 2021-05-26 FALLS RISK SCREENING [facility] Test 00:00:00 [code = FALLS RISK Medical C enter SCREENING] Future Scheduled 2021-05-[address] [facility] Test 00:00:00 (12+) [code = Medical Center DEPRESSION SCREENING (12+)] Future Scheduled 2021-05-26 FALLS RISK SCREENING [facility] Test 00:00:00 [code = FALLS RISK Medical C enter SCREENING] Future Scheduled 2021-04-18 INFLUENZA VACCINE [facility] Test 02:11:59 [code = INFLUENZA VACCINE] Future Scheduled 2021-04-18 COVID-19 VACCINE (3 - [facility] Hospital Test 02:11:59 Booster for Moderna series) [code = COVID-19 VACCINE (3 - Booster for Moderna series)] Future Scheduled 2021-04-18 65+ PNEUMOCOCCAL [facility] Test 02:11:59 VACCINE (1 of 4 - PCV13) [code = 65+ PNEUMOCOCCAL VACCINE (1 of 4 - PCV13)] Future Scheduled 2021-04-18 Hepatitis C screening [facility] Test 02:11:59 (procedure) [code = 692608155] Future Scheduled 2021-04-18 COLONOSCOPY SCREENING [facility] Test 02:11:59 [code = COLONOSCOPY SCREENING] Future Scheduled 2021-04-18 SHINGLES VACCINES (#1) M [facility] Hospital Test 02:11:59 [code = SHINGLES VACCINES (#1)] Future Scheduled 2021-04-18 INFLUENZA VACCINE Method [facility] Hospital Test 02:11:59 [code = INFLUENZA VACCINE] Future Scheduled 2021-04-18 COVID-19 VACCINE (3 - [facility] Test 02:11:59 Booster for Moderna series) [code = COVID-19 VACCINE (3 - Booster for Moderna series)] Future Scheduled 2021-04-18 65+ PNEUMOCOCCAL [facility] Test 02:11:59 VACCINE (1 of 4 - PCV13) [code = 65+ PNEUMOCOCCAL VACCINE (1 of 4 - PCV13)] Future Scheduled 2021-04-18 Hepatitis C screening [facility] Test 02:11:59 (procedure) [code = 006285000] Future Scheduled 2021-04-18 COLONOSCOPY SCREENING [facility] Test 02:11:59 [code = COLONOSCOPY SCREENING] Future Scheduled 2021-04-18 SHINGLES VACCINES (#1) M [facility] Hospital Test 02:11:59 [code = SHINGLES VACCINES (#1)] Future Scheduled 2021-01-24 INFLUENZA VACCINE (#1) [...] 00:00:00 measurement Medical Center (procedure) [code = 93071103] Future Scheduled 2020-03-[address] [facility] Test 00[facility]00 [facility] Center (procedure) [code = 91824566] Future Scheduled 2020-03-[address] [facility] Test 00:00:00 measurement [facility] Center (procedure) [code = 38282844] Future Scheduled 2020-03-[address] [facility] Test 00:00:00 measurement Medical Center (procedure) [code = 11223742] Future Scheduled 2011-04-[address] [...] 65+ YRS (1 - PCV)] Future Scheduled 2010 PNEUMOCOCCAL 65+ YRS [facility] Test 00:00:00 (1 of 1 - Medical Center [id number] PCV13) [code = PNEUMOCOCCAL 65+ YRS (1 of 1 - [id number] PCV13)] Future Scheduled 2010 PNEUMOCOCCAL 65+ YRS [facility] Test 00:00:00 (1 of 1 - Medical Center [id number] PCV13) [code = PNEUMOCOCCAL 65+ YRS (1 of 1 - [id number] PCV13)] Future Scheduled 1995 SHINGLES VACCINES (1 [...] DTAP/TDAP/TD VACCINES (1 - Tdap)] Future Scheduled 1963 [facility]IT[facility]00 [code = HEPATITIS C Medical Center SCREENING] Future Scheduled 1957 COVID-19 VACCINE (1) [facility]I [...] 00:00:00 protein (procedure) Medical Center [code = 965522583] Future Scheduled [address] EYE EXAM [facility] Test 00:00:00 [code = DIABETIC EYE Medical Center EXAM] Future Scheduled 1955 Urine screening for [facility] Test 00:00:00 protein (procedure) Medical Center [code = 751251008] Future Scheduled [address]ABETIC EYE EXAM [facility] Test 00:00:00 [code = DIABETIC EYE Medical Center EXAM] Future Scheduled 1955 Urine screening for [facility] Test 00:00:00 protein (procedure) Medical Center [code = 482308013] Future Scheduled [address] DIABETIC EYE EXAM [facility] Test 00:00:00 [code = DIABETIC EYE Medical Center EXAM] Future Scheduled 1955 Urine screening for [facility] Test 00:00:00 protein (procedure) Medical Center [code = 110444902] Future Scheduled 1951 PNEUMOCOCCAL 65+ Y[facility] Test 00:00:00 (1 - PCV) [code = Medical Ce nter PNEUMOCOCCAL 65+ YRS (1 - PCV)] Future Scheduled 1951 PNEUMOCOCCAL 65+ YRS [facility] Test 00:00:00 (1 - PCV) [code = Medical Ce nter PNEUMOCOCCAL 65+ YRS (1 - PCV)] Future Scheduled 1945 COVID-19 VACCINE (#1) [facility] 00:00:00 [code = COVID-[address] VACCINE (#1)] Future Scheduled 1945 COVID-19 VACCINE (#1) [facility] 00:00:00 [code = COVID-[address] VACCINE (#1)] Future Scheduled 1945 COVID-19 VACCINE (#1) [facility] 00:00:00 [code = COVID-[address] VACCINE (#1)] Future Scheduled [address] [facility] Test 00:00:00 malignant neoplasm of Medica l Center colon (procedure) [code = 899485600] Future Scheduled [address] [facility] Test 00:00:00 [facility] (procedure) [code = 940267205] Encounters Start End Encounter Admission Attending Care Care Encounter Source Date/Time Date/Time Type Type Clinicians Facility Department ID 2021-06-21 Outpatient NEW ENCCLR ENCCLR [id number] EN CCLR 09:49:02 ADMISSION 2021-06-21 Outpatient 3 SYED, RC IVET [id number] ENCHU 09:47:34 [place] 2021-06-21 Outpatient 3 [id number] ENCHU REF [id number] ENCHU 09:47:05 [id number] 2019-09-15 Inpatient ER [facility]IRUDH [facility] Emergency [id number] [facility] 16:35:29 ROSS JENNINGS 2022-02-05 2022-02-07 Phone nullFlavo [facility] [id number] Memoria 21:31:22 04:59:59 Message r Primary 00 l Care Sekou Wise 2022-02-05 2022-02-06 Outpatient [facility] [id number] 16:31:22 23:59:59 00 2022-02-03 2022-02-03 [facility] [id number] 00:00:00 00:00:00 Requisitio Jordin [facility] 2022-02-03 2022-02-03 [facility] [id number] 00:00:00 00:00:00 Requisitio Jordin es [facility] 2022-01-31 2022-01-31 [facility] [id number] 00:00:00 00:00:00 Requisitio Jordin es [facility] 2022-01-16 2022-01-17 Between nullFlavo [facility] [id number] Memoria 17:27:34 17:27:34 Visit r Primary 05 l Care Sekou Wise 2022-01-16 2022-01-17 Between nullFlavo [facility] [id number] Memoria 17:27:34 17:27:34 Visit r Primary 05 l Care Sekou Wise 2022-01-16 2022-01-17 Outpatient [facility] [id number] 12:27:34 12:27:34 2022-01-15 2022-01-16 Outpatient nullFlavo [facility] [id number] Memoria 18:00:00 04:59:59 r Primary 02 l Care Sekou Wise 2022-01-15 2022-01-16 Outpatient nullFlavo [facility] [id number] Memoria 18:00:00 04:59:59 r Primary 02 l Sita Wise 2022-01-15 2022-01-15 Outpatient Joe [facility] [id number] 13:00:00 23:59:59 Franco 02 [place] 2022-01-15 2022-01-15 Outpatient [facility] IE [id number] Memoria 13:00:00 13:00:00 02 vaughn Gays 2022-01-08 2022-01-09 Outpatient nullFlavo [facility] [id number] Memoria 19:30:00 04:59:59 r Primary 01 l Sita Wise 2022-01-08 2022-01-09 Outpatient nullFlavo [facility] [id number] Memoria 19:30:00 04:59:59 r Primary 01 l Care Sekou Wise 2022-01-08 2022-01-08 Outpatient Joe [facility] [id number] 14:30:00 23:59:59 Franco [place] 2022-01-08 2022-01-08 Outpatient [facility] IE [id number] Memoria 14:30:00 14:30:00 01 vaughn Gays 2022-01-01 2022-01-05 Inpatient nullFlavo [facility] [id number] Memoria 19:23:47 17:57:00 r Yunier 03 [facility] 2022-01-01 2022-01-05 Inpatient nullFlavo [facility] [id number] Memoria 19:23:47 17:57:00 r Yunier 03 [facility] 2022-01-01 2022-01-05 Outpatient MALU Najera SE [id number] 14:23:47 12:57:00 [facility] 2022-01-01 2022-01-05 Outpatient MALU Najera SE [id number] 14:23:47 12:57:00 [facility] 2021-12-18 2021-12-19 Between nullFlavo [facility] [id number] Memoria 22:48:53 22:48:53 Visit r Primary 02 l Care Sekou Wise 2021-12-18 2021-12-19 Between nullFlavo [facility] [id number] Memoria 22:48:53 22:48:53 Visit r Primary 02 l Care Sekou Wise 2021-12-18 2021-12-19 Outpatient [facility] [id number] 17:48:53 17:48:53 02 2021-12-14 2021-12-15 Outpatient nullFlavo [facility] [id number] Memoria 18:15:00 04:59:59 r Primary 00 l Care Sekou Wise 2021-12-14 2021-12-15 Outpatient nullFlavo [facility] [id number] Memoria 18:15:00 04:59:59 r Primary 00 l Care Sekou Wise 2021-12-14 2021-12-14 Outpatient Joe [facility] [id number] 13:15:00 23:59:59 Franco Antonio Louig 2021-12-14 2021-12-14 Outpatient [facility] [id number] Memoria 13:15:00 13:15:00 00 l Yunier 2020-12-19 2020-12-19 Outpatient [facility] [id number] [facility] 15:47:55 16:50:59 [facility] 2020-12-19 2020-12-19 Outpatient KAMALJIT WAGNER [facility] [id number] [facility] 15:47:35 16:22:05 [facility] 2020-09-06 2020-09-06 Outpatient [facility] [id number] [facility] 13:24:55 15:41:25 [facility] 2020-09-05 2020-09-05 Hospital Lillian, [facility] [id number] [facility] [address] 12:20:00 23:59:00 [facility] 2020-09-05 2020-09-05 Outpatient [facility] [id number] [facility] 00:00:00 00:00:00 DIPABEN 2020-09-05 2020-09-05 Orders [facility], [facility] [id number] [facility] 00:00:00 00:00:00 [facility] 2020-06-27 2020-08-07 Clinical 1.2.840.1 [id number] Methodi 08:44:38 14:40:[address] 3.430.2.7 Hospit a .3.354040 l .8 2020-06-02 2020-06-02 Emergency ER [facility] Emergency [id number] [facility] 11:27:00 11:27:00 2020-05-30 2020-05-30 Outpatient [facility] [id number] [place] [address] 00:00:00 00:00:[address] 2019-09-15 2019-09-15 Emergency [facility] [id number] [facility] 16:22:00 16:22:00 [id number] 2019-07-23 2019-07-23 Outpatient [facility], [facility] [id number] [place] [address] 00:00:00 00:00:[address] JOH[address]Y [address] Results Test Description Test Time Test Comments Results Result Comments Source B-type Natriuretic Factor (BNP) 2022-02-03 22:50:26 Test Item Value Reference Range Interpretation Comme nts BNP (test code = 92921-4) 780 pg/mL 0-100 H JOSE (test code = JOSE) Cath Lab Radiology Technician ID - AIYANA Lab Interpretation (test code = 46900-9) [facility]2022-02-03 22:50:26 Test Item Value Reference Range Interpretation Comments B-TYPE NATRIURETIC PEPTIDE (BEAKER) 780 pg/mL 0-100 H (test code = 700) Cath Lab Radiology Technician ID - MITCHHepatitis B surface [id number] 21:22:19 Test Item Value Reference Range Interpretation Comments Hep B S Ab (test code <8.0 See_Comment [Auto mated = 46131-9) message] The system which generated this result transmit debbie reference range : <8.0 mIU/mL. e reference range was not used to interpret this result as normal/abnormal . JOSE (test code = JOSE) Cath Lab Radiology Technician ID - SABRINA B Lab Interpretation Normal (test code = 32555-7) [facility] [id number] 21:22:19 Test Item Value Reference Range Interpretation Comments HEPATITIS B SURFACE ANTIBODY < mIU/mL <8.0 (BEAKER) (test code = 647) Cath Lab Radiology Technician ID - SABRINA BHepatitis B surface [id number] 21:13:58 Test Item Value Reference Range Interpretation Comments Hepatitis B surface Nonreactive Nonreactive antigen (test code = 5195-3) JOSE (test code = JOSE) Specimen is considered negative for HBsAg. Lab Interpretation (test Normal code = 45278-9) [facility] B core antibody, [id number] 21:13:58 Test Item Value Reference Range Interpretation Comments Hep B Core Total Ab Nonreactive Nonreactive (test code = 42686-5) JOSE (test code = JOSE) Cath Lab Radiology Technician ID - SABRINA B Lab Interpretation (test Normal code = 45533-9) [facility] SURFACE [id number] 21:13:58 Test Item Value Reference Range Interpretation Comments HEPATITIS B SURFACE ANTIGEN (2) Nonreactive Nonreactive (BEAKER) (test code = 2585) Specimen is considered negative for HBsAg.HEPATITIS B CORE ANTIBODY, TOTAL 2022-01-31 21:13:58 Test Item Value Reference Range Interpretation Comments HEPATITIS B CORE TOTAL ANTIBODY Nonreactive Nonreactive (BEAKER) (test code = 497) Cath Lab Radiology Technician ID - SABRINA BCHEM [id number] 18:25:00 Test Item Value Reference Range Interpretation Comments Glucose Lvl (test code = Glucose Lvl) 93 65-139 [facility] [id number] 18:25:00 Test Item Value Reference Range Interpretation Comments BUN (test code = BUN) 36 7-25 [place] 269972-08-23 18:25:00 Test Item Value Reference Range Interpretation Comments Creatinine Lvl (test code = Creatinine 3.57 0.70-1.28 Lvl) [place] 269972-08-23 18:25:00 Test Item Value Reference Range Interpretation Comments eGFR (test code = eGFR) 17 [place] 269972-08-23 18:25:00 Test Item Value Reference Range Interpretation Comments B/C Ratio (test code = B/C Ratio) 10 6-22 [place] 269972-08-23 18:25:00 Test Item Value Reference Range Interpretation Comments Sodium Lvl (test code = Sodium Lvl) 135 135-146 [place] 269972-08-23 18:25:00 Test Item Value Reference Range Interpretation Comments Potassium Lvl (test code = Potassium 4.9 3.5-5.3 Lvl) [place] 269972-08-23 18:25:00 Test Item Value Reference Range Interpretation Comments Chloride Lvl (test code = Chloride Lvl) 102 98-110 [facility] [id number] 18:25:00 Test Item Value Reference Range Interpretation Comments CO2 (test code = CO2) 23 20-32 [facility] [id number] 18:25:00 Test Item Value Reference Range Interpretation Comments Calcium Lvl (test code = Calcium Lvl) 7.7 8.6-10.3 [facility] [id number] 18:25:00 Test Item Value Reference Range Interpretation Comments Glucose Lvl (test code = Glucose Lvl) 93 65-139 [facility] [id number] 18:25:00 Test Item Value Reference Range Interpretation Comments BUN (test code = BUN) 36 7-25 [facility] [id number] 18:25:00 Test Item Value Reference Range Interpretation Comments Creatinine Lvl (test code = Creatinine 3.57 0.70-1.28 Lvl) [facility] [id number] 18:25:00 Test Item Value Reference Range Interpretation Comments eGFR (test code = eGFR) 17 [facility] [id number] 18:25:00 Test Item Value Reference Range Interpretation Comments B/C Ratio (test code = B/C Ratio) 10 6-22 [facility] [id number] 18:25:00 Test Item Value Reference Range Interpretation Comments Sodium Lvl (test code = Sodium Lvl) 135 135-146 [facility] [id number] 18:25:00 Test Item Value Reference Range Interpretation Comments Potassium Lvl (test code = Potassium 4.9 3.5-5.3 Lvl) [facility] [id number] 18:25:00 Test Item Value Reference Range Interpretation Comments Chloride Lvl (test code = Chloride Lvl) 102 98-110 [facility] [id number] 18:25:00 Test Item Value Reference Range Interpretation Comments CO2 (test code = CO2) 23 20-32 [facility] [id number] 18:25:00 Test Item Value Reference Range Interpretation Comments Calcium Lvl (test code = Calcium Lvl) 7.7 8.6-10.3 [facility] [employer] [id number] 09:37:00 Test Item Value Reference Range Interpretation Comments A/G Ratio (test code = A/G Ratio) 0.8 1 0.7-1.6 [facility] [employer] [id number] 09:37:00 Test Item Value Reference Range Interpretation Comments ALT (test code = ALT) 312 See_Comment [Auto mated message] The system which ge nerated this result transmit debbie reference range : <=65. The reference range was not used to interpr et this result as eva l/abnormal. [facility] [employer] [id number] 09:37:00 Test Item Value Reference Range Interpretation Comments AST (test code = AST) 148 See_Comment [Auto mated message] The system which ge nerated this result transmit debbie reference range : <=37. The reference range was not used to interpr et this result as eva l/abnormal. [facility] [employer] [id number] 09:37:00 Test Item Value Reference Range Interpretation Comments Alk Phos (test code = Alk Phos) 119 39-136 [facility] [id number] 09:37:00 Test Item Value Reference Range Interpretation Comments Bili Total (test code = Bili Total) 1.3 0.2-1.3 [place] [address]-08-13 09:37:00 Test Item Value Reference Range Interpretation Comments eGFR (test code = eGFR) 22 [place] [address]-08-13 09:37:00 Test Item Value Reference Range Interpretation Comments Glucose Lvl (test code = Glucose Lvl) 94 70-99 [place] [address]-08-13 09:37:00 Test Item Value Reference Range Interpretation Comments BUN (test code = BUN) 79 7-22 [place] [address]-08-13 09:37:00 Test Item Value Reference Range Interpretation Comments Creatinine Lvl (test code = Creatinine 2.88 0.50-1.40 Lvl) [place] [address]-08-13 09:37:00 Test Item Value Reference Range Interpretation Comments Sodium Lvl (test code = Sodium Lvl) 146 135-145 [place] 269972-08-13 09:37:00 Test Item Value Reference Range Interpretation Comments Potassium Lvl (test code = Potassium 3.6 3.5-5.1 Lvl) [place] 269972-08-13 09:37:00 Test Item Value Reference Range Interpretation Comments Chloride Lvl (test code = Chloride Lvl) 114 95-109 [place] 269972-08-13 09:37:00 Test Item Value Reference Range Interpretation Comments CO2 (test code = CO2) 24 24-32 [place] [address]-08-13 09:37:00 Test Item Value Reference Range Interpretation Comments AGAP (test code = AGAP) 11.6 10.0-20.0 [place] [address]-08-13 09:37:00 Test Item Value Reference Range Interpretation Comments Calcium Lvl (test code = Calcium Lvl) 7.9 8.5-10.5 [place] [address]-08-13 09:37:00 Test Item Value Reference Range Interpretation Comments B/C Ratio (test code = B/C Ratio) 27 1 6-25 [place] 269972-08-13 09:37:00 Test Item Value Reference Range Interpretation Comments Total Protein (test code = Total 5.1 6.4-8.4 Protein) [place] 269972-08-13 09:37:00 Test Item Value Reference Range Interpretation Comments Albumin Lvl (test code = Albumin Lvl) 2.3 3.5-5.0 [place] 269972-08-13 09:37:00 Test Item Value Reference Range Interpretation Comments Globulin (test code = Globulin) 2.8 2.7-4.2 [place] 269972-08-13 09:37:00 Test Item Value Reference Range Interpretation Comments eGFR (test code = eGFR) 22 [place] [address]-08-13 09:37:00 Test Item Value Reference Range Interpretation Comments Glucose Lvl (test code = Glucose Lvl) 94 70-99 [place] 269972-08-13 09:37:00 Test Item Value Reference Range Interpretation Comments BUN (test code = BUN) 79 7-22 [place] 269972-08-13 09:37:00 Test Item Value Reference Range Interpretation Comments Creatinine Lvl (test code = Creatinine 2.88 0.50-1.40 Lvl) [place] 269972-08-13 09:37:00 Test Item Value Reference Range Interpretation Comments Sodium Lvl (test code = Sodium Lvl) 146 135-145 [place] 269972-08-13 09:37:00 Test Item Value Reference Range Interpretation Comments Potassium Lvl (test code = Potassium 3.6 3.5-5.1 Lvl) [place] 269972-08-13 09:37:00 Test Item Value Reference Range Interpretation Comments Chloride Lvl (test code = Chloride Lvl) 114 95-109 [place] 269972-08-13 09:37:00 Test Item Value Reference Range Interpretation Comments CO2 (test code = CO2) 24 24-32 [place] 269972-08-13 09:37:00 Test Item Value Reference Range Interpretation Comments AGAP (test code = AGAP) 11.6 10.0-20.0 [place] 269972-08-13 09:37:00 Test Item Value Reference Range Interpretation Comments Calcium Lvl (test code = Calcium Lvl) 7.9 8.5-10.5 [place] 269972-08-13 09:37:00 Test Item Value Reference Range Interpretation Comments B/C Ratio (test code = B/C Ratio) 27 1 6-25 [place] 269972-08-13 09:37:00 Test Item Value Reference Range Interpretation Comments Total Protein (test code = Total 5.1 6.4-8.4 Protein) [place] [address]-08-13 09:37:00 Test Item Value Reference Range Interpretation Comments Albumin Lvl (test code = Albumin Lvl) 2.3 3.5-5.0 [place] [address]-08-13 09:37:00 Test Item Value Reference Range Interpretation Comments Globulin (test code = Globulin) 2.8 2.7-4.2 [place] [address]-08-13 09:37:00 Test Item Value Reference Range Interpretation Comments A/G Ratio (test code = A/G Ratio) 0.8 1 0.7-1.6 [place] [address]-08-13 09:37:00 Test Item Value Reference Range Interpretation Comments ALT (test code = ALT) 312 See_Comment [Auto mated message] The system which ge nerated this result transmit debbie reference range : <=65. The reference range was not used to interpr et this result as eva l/abnormal. [place] 269972-08-13 09:37:00 Test Item Value Reference Range Interpretation Comments AST (test code = AST) 148 See_Comment [Auto mated message] The system which ge nerated this result transmit debbie reference range : <=37. The reference range was not used to interpr et this result as eva l/abnormal. [place] [address]-08-13 09:37:00 Test Item Value Reference Range Interpretation Comments Alk Phos (test code = Alk Phos) 119 39-136 [place] [address]-08-13 09:37:00 Test Item Value Reference Range Interpretation Comments Bili Total (test code = Bili Total) 1.3 0.2-1.3 [place] [address]-08-12 10:01:00 Test Item Value Reference Range Interpretation Comments Glucose Lvl (test code = Glucose Lvl) 92 70-99 [place] 269972-08-12 10:01:00 Test Item Value Reference Range Interpretation Comments BUN (test code = BUN) 116 7-22 [place] 269972-08-12 10:01:00 Test Item Value Reference Range Interpretation Comments Creatinine Lvl (test code = Creatinine 4.09 0.50-1.40 Lvl) [place] 269972-08-12 10:01:00 Test Item Value Reference Range Interpretation Comments Sodium Lvl (test code = Sodium Lvl) 146 135-145 [place] 269972-08-12 10:01:00 Test Item Value Reference Range Interpretation Comments Potassium Lvl (test code = Potassium 3.8 3.5-5.1 Lvl) [place] 269972-08-12 10:01:00 Test Item Value Reference Range Interpretation Comments Chloride Lvl (test code = Chloride Lvl) 114 95-109 [place] 269972-08-12 10:01:00 Test Item Value Reference Range Interpretation Comments CO2 (test code = CO2) 23 24-32 [place] 269972-08-12 10:01:00 Test Item Value Reference Range Interpretation Comments Calcium Lvl (test code = Calcium Lvl) 8.2 8.5-10.5 [place] 269972-08-12 10:01:00 Test Item Value Reference Range Interpretation Comments Total Protein (test code = Total 5.5 6.4-8.4 Protein) [place] 269972-08-12 10:01:00 Test Item Value Reference Range Interpretation Comments Albumin Lvl (test code = Albumin Lvl) 2.5 3.5-5.0 [place] 269972-08-12 10:01:00 Test Item Value Reference Range Interpretation Comments ALT (test code = ALT) 377 See_Comment [Auto mated message] The system which ge nerated this result transmit debbie reference range : <=65. The reference range was not used to interpr et this result as eva l/abnormal. [place] 269972-08-12 10:01:00 Test Item Value Reference Range Interpretation Comments AST (test code = AST) 203 See_Comment [Auto mated message] The system which ge nerated this result transmit debbie reference range : <=37. The reference range was not used to interpr et this result as eva l/abnormal. [place] 269972-08-12 10:01:00 Test Item Value Reference Range Interpretation Comments Alk Phos (test code = Alk Phos) 122 39-136 [place] 269972-08-12 10:01:00 Test Item Value Reference Range Interpretation Comments Bili Total (test code = Bili Total) 1.2 0.2-1.3 [place] 269972-08-12 10:01:00 Test Item Value Reference Range Interpretation Comments AGAP (test code = AGAP) 12.8 10.0-20.0 [place] 269972-08-12 10:01:00 Test Item Value Reference Range Interpretation Comments B/C Ratio (test code = B/C Ratio) 28 1 6-25 [place] 269972-08-12 10:01:00 Test Item Value Reference Range Interpretation Comments Globulin (test code = Globulin) 3.0 2.7-4.2 [place] 269972-08-12 10:01:00 Test Item Value Reference Range Interpretation Comments A/G Ratio (test code = A/G Ratio) 0.8 1 0.7-1.6 [place] 269972-08-12 10:01:00 Test Item Value Reference Range Interpretation Comments eGFR (test code = eGFR) 14 [facility]flmdimNJVVJKBDYS5850-40-26 10:01:00 Test Item Value Reference Range Interpretation Comments Segs (test code = Segs) 70.7 45.0-75.0 [place] 079632-08-12 10:01:00 Test Item Value Reference Range Interpretation Comments Lymphocytes (test code = Lymphocytes) 19.8 20.0-40.0 [place] [address]-08-12 10:01:00 Test Item Value Reference Range Interpretation Comments Monocytes (test code = Monocytes) 7.8 2.0-12.0 [place] [address]-08-12 10:01:00 Test Item Value Reference Range Interpretation Comments Eosinophils (test code = 1.1 See_Comment [A utomated message] The Eosinophils) system which ge nerated this result tra nsmitted reference range : <=4.0. The reference r tomasa was not used to int erpret this result as normal/abnormal . [place] 079632-08-12 10:01:00 Test Item Value Reference Range Interpretation Comments Basophils (test code = 0.6 See_Comment [Aut omated message] The Basophils) system which ge nerated this result tra nsmitted reference range : <=1.0. The reference r tomasa was not used to int erpret this result as normal/abnormal . [facility] ArlingtonLbvhcurNLOGCUKLKB5356-99-37 10:01:00 Test Item Value Reference Range Interpretation Comments Neutrophils # (test code = Neutrophils 5.5 1.5-8.1 #) [facility] ArlingtonRcnufibBAFQIFTRWY8121-41-80 10:01:00 Test Item Value Reference Range Interpretation Comments Lymphocytes # (test code = Lymphocytes 1.5 1.0-5.5 #) [facility] ArlingtonUmglnxqGWOZUAMZAL8992-01-29 10:01:00 Test Item Value Reference Range Interpretation Comments Monocytes # (test code 0.6 See_Comment [Aut omated message] The = Monocytes #) system which generated this result tra nsmitted reference range : <=0.8. The reference r tomasa was not used to int erpret this result as normal/abnormal . [facility] ArlingtonNknnugcSELCSHOCIN7243-95-45 10:01:00 Test Item Value Reference Range Interpretation Comments Eosinophils # (test code 0.1 See_Comment [A utomated message] The = Eosinophils #) system whic h generated this result tra nsmitted reference range : <=0.5. The reference r tomasa was not used to int erpret this result as normal/abnormal . [facility] ArlingtonVqptswcVDUJRLYPSX3478-93-67 10:01:00 Test Item Value Reference Range Interpretation Comments WBC (test code = WBC) 7.7 3.7-10.4 [facility] ArlingtonBroulooIOXUFVJXRB7532-63-48 10:01:00 Test Item Value Reference Range Interpretation Comments RBC (test code = RBC) 3.94 4.70-6.10 [facility] ArlingtonFepdulfBTVDZJTJZP7114-16-71 10:01:00 Test Item Value Reference Range Interpretation Comments Hgb (test code = Hgb) 11.3 14.0-18.0 [facility] ArlingtonDlmwbepGASZLRZZND3776-48-61 10:01:00 Test Item Value Reference Range Interpretation Comments Hct (test code = Hct) 33.8 42.0-54.0 [facility] ArlingtonHeftdpoNRUXTCEJRM2240-18-29 10:01:00 Test Item Value Reference Range Interpretation Comments MCV (test code = MCV) 85.8 80.0-94.0 [place] 079632-08-12 10:01:00 Test Item Value Reference Range Interpretation Comments MCH (test code = MCH) 28.6 pg 27.0-31.0 [place] 079632-08-12 10:01:00 Test Item Value Reference Range Interpretation Comments MCHC (test code = MCHC) 33.4 32.0-36.0 [place] 079632-08-12 10:01:00 Test Item Value Reference Range Interpretation Comments RDW (test code = RDW) 17.7 11.5-14.5 [place] 079632-08-12 10:01:00 Test Item Value Reference Range Interpretation Comments Platelet (test code = Platelet) 197 133-450 [place] 079632-08-12 10:01:00 Test Item Value Reference Range Interpretation Comments MPV (test code = MPV) 7.9 7.4-10.4 [facility]2022-08-12 10:01:00 Test Item Value Reference Range Interpretation Comments Glucose Lvl (test code = Glucose Lvl) 92 70-99 [facility]2022-08-12 10:01:00 Test Item Value Reference Range Interpretation Comments BUN (test code = BUN) 116 7-22 [place] 269972-08-12 10:01:00 Test Item Value Reference Range Interpretation Comments Creatinine Lvl (test code = Creatinine 4.09 0.50-1.40 Lvl) [facility]2022-08-12 10:01:00 Test Item Value Reference Range Interpretation Comments Sodium Lvl (test code = Sodium Lvl) 146 135-145 [place] 269972-08-12 10:01:00 Test Item Value Reference Range Interpretation Comments Potassium Lvl (test code = Potassium 3.8 3.5-5.1 Lvl) [place] 269972-08-12 10:01:00 Test Item Value Reference Range Interpretation Comments Chloride Lvl (test code = Chloride Lvl) 114 95-109 [place] 269972-08-12 10:01:00 Test Item Value Reference Range Interpretation Comments CO2 (test code = CO2) 23 24-32 [place] 269972-08-12 10:01:00 Test Item Value Reference Range Interpretation Comments Calcium Lvl (test code = Calcium Lvl) 8.2 8.5-10.5 [place] 269972-08-12 10:01:00 Test Item Value Reference Range Interpretation Comments Total Protein (test code = Total 5.5 6.4-8.4 Protein) [facility]2022-08-12 10:01:00 Test Item Value Reference Range Interpretation Comments Albumin Lvl (test code = Albumin Lvl) 2.5 3.5-5.0 [facility]2022-08-12 10:01:00 Test Item Value Reference Range Interpretation Comments ALT (test code = ALT) 377 See_Comment [Auto mated message] The system which ge nerated this result transmit debbie reference range : <=65. The reference range was not used to interpr et this result as eva l/abnormal. [facility] [id number] 10:01:00 Test Item Value Reference Range Interpretation Comments AST (test code = AST) 203 See_Comment [Auto mated message] The system which ge nerated this result transmit debbie reference range : <=37. The reference range was not used to interpr et this result as eva l/abnormal. [facility] [id number] 10:01:00 Test Item Value Reference Range Interpretation Comments Alk Phos (test code = Alk Phos) 122 39-136 [facility]2022-08-12 10:01:00 Test Item Value Reference Range Interpretation Comments Bili Total (test code = Bili Total) 1.2 0.2-1.3 [facility]2022-08-12 10:01:00 Test Item Value Reference Range Interpretation Comments AGAP (test code = AGAP) 12.8 10.0-20.0 [facility]2022-08-12 10:01:00 Test Item Value Reference Range Interpretation Comments B/C Ratio (test code = B/C Ratio) 28 1 6-25 [place] 269972-08-12 10:01:00 Test Item Value Reference Range Interpretation Comments Globulin (test code = Globulin) 3.0 2.7-4.2 [facility]2022-08-12 10:01:00 Test Item Value Reference Range Interpretation Comments A/G Ratio (test code = A/G Ratio) 0.8 1 0.7-1.6 [facility]2022-08-12 10:01:00 Test Item Value Reference Range Interpretation Comments eGFR (test code = eGFR) 14 [facility] ArlingtonGyrwvabRFXQEBIUAH7191-97-04 10:01:00 Test Item Value Reference Range Interpretation Comments Segs (test code = Segs) 70.7 45.0-75.0 [facility] ArlingtonAbuxhdpJOMBHBDXQS5047-34-85 10:01:00 Test Item Value Reference Range Interpretation Comments Lymphocytes (test code = Lymphocytes) 19.8 20.0-40.0 [place] 079632-08-12 10:01:00 Test Item Value Reference Range Interpretation Comments Monocytes (test code = Monocytes) 7.8 2.0-12.0 [place] 079632-08-12 10:01:00 Test Item Value Reference Range Interpretation Comments Eosinophils (test code = 1.1 See_Comment [A utomated message] The Eosinophils) system which ge nerated this result tra nsmitted reference range : <=4.0. The reference r tomasa was not used to int erpret this result as normal/abnormal . [facility] ArlingtonMfoophnHRMBTTWYZX3908-13-58 10:01:00 Test Item Value Reference Range Interpretation Comments Basophils (test code = 0.6 See_Comment [Aut omated message] The Basophils) system which ge nerated this result tra nsmitted reference range : <=1.0. The reference r tomasa was not used to int erpret this result as normal/abnormal . [facility] ArlingtonBqnqjskJPALAMBMAC3531-30-68 10:01:00 Test Item Value Reference Range Interpretation Comments Neutrophils # (test code = Neutrophils 5.5 1.5-8.1 #) [facility] ArlingtonIbbvigiFZPFRTHRII3408-81-03 10:01:00 Test Item Value Reference Range Interpretation Comments Lymphocytes # (test code = Lymphocytes 1.5 1.0-5.5 #) [facility] ArlingtonXendwivVISRINQFVW9089-19-43 10:01:00 Test Item Value Reference Range Interpretation Comments Monocytes # (test code 0.6 See_Comment [Aut omated message] The = Monocytes #) system which generated this result tra nsmitted reference range : <=0.8. The reference r tomasa was not used to int erpret this result as normal/abnormal . [facility] ArlingtonUcjcknxSYUXGOETTS4142-82-67 10:01:00 Test Item Value Reference Range Interpretation Comments Eosinophils # (test code 0.1 See_Comment [A utomated message] The = Eosinophils #) system whic h generated this result tra nsmitted reference range : <=0.5. The reference r tomasa was not used to int erpret this result as normal/abnormal . [facility] ArlingtonGfbtouoOAKPBYLTAH2124-02-00 10:01:00 Test Item Value Reference Range Interpretation Comments WBC (test code = WBC) 7.7 3.7-10.4 [place] 079632-08-12 10:01:00 Test Item Value Reference Range Interpretation Comments RBC (test code = RBC) 3.94 4.70-6.10 [facility] ArlingtonNkkujytVOTCEKGWVP4911-76-34 10:01:00 Test Item Value Reference Range Interpretation Comments Hgb (test code = Hgb) 11.3 14.0-18.0 [place] 079632-08-12 10:01:00 Test Item Value Reference Range Interpretation Comments Hct (test code = Hct) 33.8 42.0-54.0 [place] 079632-08-12 10:01:00 Test Item Value Reference Range Interpretation Comments MCV (test code = MCV) 85.8 80.0-94.0 [facility] ArlingtonOuoozwzSEAZJHFXCB4600-09-16 10:01:00 Test Item Value Reference Range Interpretation Comments MCH (test code = MCH) 28.6 pg 27.0-31.0 [facility] ArlingtonHiufhwhVIMGADDOEY6581-66-91 10:01:00 Test Item Value Reference Range Interpretation Comments MCHC (test code = MCHC) 33.4 32.0-36.0 [facility] ArlingtonNalxzatETDAHVNPYU9132-58-99 10:01:00 Test Item Value Reference Range Interpretation Comments RDW (test code = RDW) 17.7 11.5-14.5 [facility] ArlingtonFnlinzjBYUUKCIHHV0471-60-05 10:01:00 Test Item Value Reference Range Interpretation Comments Platelet (test code = Platelet) 197 133-450 [facility] ArlingtonGbszsarWQQDLQEFSF9663-40-39 10:01:00 Test Item Value Reference Range Interpretation Comments MPV (test code = MPV) 7.9 7.4-10.4 [facility]2022-08-11 09:34:00 Test Item Value Reference Range Interpretation Comments Glucose Lvl (test code = Glucose Lvl) 96 70-99 [facility]2022-08-11 09:34:00 Test Item Value Reference Range Interpretation Comments BUN (test code = BUN) 159 7-22 [facility]2022-08-11 09:34:00 Test Item Value Reference Range Interpretation Comments Creatinine Lvl (test code = Creatinine 5.63 0.50-1.40 Lvl) [facility]2022-08-11 09:34:00 Test Item Value Reference Range Interpretation Comments Sodium Lvl (test code = Sodium Lvl) 142 135-145 [place] 269972-08-11 09:34:00 Test Item Value Reference Range Interpretation Comments Potassium Lvl (test code = Potassium 3.6 3.5-5.1 Lvl) [facility]2022-08-11 09:34:00 Test Item Value Reference Range Interpretation Comments Chloride Lvl (test code = Chloride Lvl) 109 95-109 [facility]2022-08-11 09:34:00 Test Item Value Reference Range Interpretation Comments CO2 (test code = CO2) 22 24-32 [place] 269972-08-11 09:34:00 Test Item Value Reference Range Interpretation Comments AGAP (test code = AGAP) 14.6 10.0-20.0 [facility]2022-08-11 09:34:00 Test Item Value Reference Range Interpretation Comments Calcium Lvl (test code = Calcium Lvl) 7.5 8.5-10.5 [facility]2022-08-11 09:34:00 Test Item Value Reference Range Interpretation Comments B/C Ratio (test code = B/C Ratio) 28 1 6-25 [place] 269972-08-11 09:34:00 Test Item Value Reference Range Interpretation Comments Total Protein (test code = Total 5.1 6.4-8.4 Protein) [facility]2022-08-11 09:34:00 Test Item Value Reference Range Interpretation Comments Albumin Lvl (test code = Albumin Lvl) 2.3 3.5-5.0 [place] 269972-08-11 09:34:00 Test Item Value Reference Range Interpretation Comments Globulin (test code = Globulin) 2.8 2.7-4.2 [place] 269972-08-11 09:34:00 Test Item Value Reference Range Interpretation Comments A/G Ratio (test code = A/G Ratio) 0.8 1 0.7-1.6 [facility] [id number] 09:34:00 Test Item Value Reference Range Interpretation Comments ALT (test code = ALT) 333 See_Comment [Auto mated message] The system which ge nerated this result transmit debbie reference range : <=65. The reference range was not used to interpr et this result as eva l/abnormal. [facility] [id number] 09:34:00 Test Item Value Reference Range Interpretation Comments AST (test code = AST) 180 See_Comment [Auto mated message] The system which ge nerated this result transmit debbie reference range : <=37. The reference range was not used to interpr et this result as eva l/abnormal. [facility] [employer] [id number] 09:34:00 Test Item Value Reference Range Interpretation Comments Alk Phos (test code = Alk Phos) 96 39-136 [facility] [employer] [id number] 09:34:00 Test Item Value Reference Range Interpretation Comments Bili Total (test code = Bili Total) 1.0 0.2-1.3 [facility] [id number] 09:34:00 Test Item Value Reference Range Interpretation Comments eGFR (test code = eGFR) 10 [facility]roeMpffdseQCHYBQHIFV6535-50-09 09:34:00 Test Item Value Reference Range Interpretation Comments WBC (test code = WBC) 5.3 3.7-10.4 [facility] HospitalUbsuhmtSIQZDGEJBB1612-10-10 09:34:00 Test Item Value Reference Range Interpretation Comments RBC (test code = RBC) 3.75 4.70-6.10 [facility] HospitalDifdzieLXGDLTXKLG8819-58-17 09:34:00 Test Item Value Reference Range Interpretation Comments Hgb (test code = Hgb) 10.7 14.0-18.0 [facility]roeAhlwgicOPDERFJKRD4360-40-79 09:34:00 Test Item Value Reference Range Interpretation Comments Hct (test code = Hct) 32.3 42.0-54.0 [facility]roeMakoexbKXNONMKQWO5604-89-73 09:34:00 Test Item Value Reference Range Interpretation Comments MCV (test code = MCV) 86.0 80.0-94.0 [facility]roeYfmoovrVYRPFKUFPZ5868-32-95 09:34:00 Test Item Value Reference Range Interpretation Comments MCH (test code = MCH) 28.6 pg 27.0-31.0 [place] 079632-08-11 09:34:00 Test Item Value Reference Range Interpretation Comments MCHC (test code = MCHC) 33.2 32.0-36.0 [facility] ArlingtonRojhwipJTMVGSHHJY4195-46-03 09:34:00 Test Item Value Reference Range Interpretation Comments RDW (test code = RDW) 17.6 11.5-14.5 [place] 079632-08-11 09:34:00 Test Item Value Reference Range Interpretation Comments Platelet (test code = Platelet) 142 133-450 [place] 079632-08-11 09:34:00 Test Item Value Reference Range Interpretation Comments MPV (test code = MPV) 7.5 7.4-10.4 [place] 079632-08-11 09:34:00 Test Item Value Reference Range Interpretation Comments Segs (test code = Segs) 75.8 45.0-75.0 [place] 079632-08-11 09:34:00 Test Item Value Reference Range Interpretation Comments Lymphocytes (test code = Lymphocytes) 12.6 20.0-40.0 [place] 079632-08-11 09:34:00 Test Item Value Reference Range Interpretation Comments Monocytes (test code = Monocytes) 9.8 2.0-12.0 [facility] ArlingtonRsbxrqxURRDOHNJPZ4316-32-51 09:34:00 Test Item Value Reference Range Interpretation Comments Eosinophils (test code = 1.1 See_Comment [A utomated message] The Eosinophils) system which ge nerated this result tra nsmitted reference range : <=4.0. The reference r tomasa was not used to int erpret this result as normal/abnormal . [facility] ArlingtonPmbnfsuTDRXKQCUQF2069-26-20 09:34:00 Test Item Value Reference Range Interpretation Comments Basophils (test code = 0.7 See_Comment [Aut omated message] The Basophils) system which ge nerated this result tra nsmitted reference range : <=1.0. The reference r tomasa was not used to int erpret this result as normal/abnormal . [place] 079632-08-11 09:34:00 Test Item Value Reference Range Interpretation Comments Neutrophils # (test code = Neutrophils 4.0 1.5-8.1 #) [place] 079632-08-11 09:34:00 Test Item Value Reference Range Interpretation Comments Lymphocytes # (test code = Lymphocytes 0.7 1.0-5.5 #) [place] 079632-08-11 09:34:00 Test Item Value Reference Range Interpretation Comments Monocytes # (test code 0.5 See_Comment [Aut omated message] The = Monocytes #) system which generated this result tra nsmitted reference range : <=0.8. The reference r tomasa was not used to int erpret this result as normal/abnormal . [place] 079632-08-11 09:34:00 Test Item Value Reference Range Interpretation Comments Eosinophils # (test code 0.1 See_Comment [A utomated message] The = Eosinophils #) system whic h generated this result tra nsmitted reference range : <=0.5. The reference r tomasa was not used to int erpret this result as normal/abnormal . [place] 269972-08-11 09:34:00 Test Item Value Reference Range Interpretation Comments Glucose Lvl (test code = Glucose Lvl) 96 70-99 [place] 269972-08-11 09:34:00 Test Item Value Reference Range Interpretation Comments BUN (test code = BUN) 159 7-22 [place] [address]-08-11 09:34:00 Test Item Value Reference Range Interpretation Comments Creatinine Lvl (test code = Creatinine 5.63 0.50-1.40 Lvl) [place] [address]-08-11 09:34:00 Test Item Value Reference Range Interpretation Comments Sodium Lvl (test code = Sodium Lvl) 142 135-145 [place] [address]-08-11 09:34:00 Test Item Value Reference Range Interpretation Comments Potassium Lvl (test code = Potassium 3.6 3.5-5.1 Lvl) [place] [address]-08-11 09:34:00 Test Item Value Reference Range Interpretation Comments Chloride Lvl (test code = Chloride Lvl) 109 95-109 [place] 269972-08-11 09:34:00 Test Item Value Reference Range Interpretation Comments CO2 (test code = CO2) 22 24-32 [place] [address]-08-11 09:34:00 Test Item Value Reference Range Interpretation Comments AGAP (test code = AGAP) 14.6 10.0-20.0 [place] [address]-08-11 09:34:00 Test Item Value Reference Range Interpretation Comments Calcium Lvl (test code = Calcium Lvl) 7.5 8.5-10.5 [place] 269972-08-11 09:34:00 Test Item Value Reference Range Interpretation Comments B/C Ratio (test code = B/C Ratio) 28 1 6-25 [facility]PlayneryAN[facility] [place] [id number] 09:34:00 Test Item Value Reference Range Interpretation Comments Total Protein (test code = Total 5.1 6.4-8.4 Protein) [place] [address]-08-11 09:34:00 Test Item Value Reference Range Interpretation Comments Albumin Lvl (test code = Albumin Lvl) 2.3 3.5-5.0 [facility] [id number] 09:34:00 Test Item Value Reference Range Interpretation Comments Globulin (test code = Globulin) 2.8 2.7-4.2 [facility] [id number] 09:34:00 Test Item Value Reference Range Interpretation Comments A/G Ratio (test code = A/G Ratio) 0.8 1 0.7-1.6 [facility] [id number] 09:34:00 Test Item Value Reference Range Interpretation Comments ALT (test code = ALT) 333 See_Comment [Auto mated message] The system which ge nerated this result transmit debbie reference range : <=65. The reference range was not used to interpr et this result as eva l/abnormal. [facility] [id number] 09:34:00 Test Item Value Reference Range Interpretation Comments AST (test code = AST) 180 See_Comment [Auto mated message] The system which ge nerated this result transmit debbie reference range : <=37. The reference range was not used to interpr et this result as eva l/abnormal. [facility] [id number] 09:34:00 Test Item Value Reference Range Interpretation Comments Alk Phos (test code = Alk Phos) 96 39-136 [facility] [id number] 09:34:00 Test Item Value Reference Range Interpretation Comments Bili Total (test code = Bili Total) 1.0 0.2-1.3 [facility]2022-08-11 09:34:00 Test Item Value Reference Range Interpretation Comments eGFR (test code = eGFR) 10 [facility] ArlingtonVenaanmHOGTVHNYYT7409-56-95 09:34:00 Test Item Value Reference Range Interpretation Comments WBC (test code = WBC) 5.3 3.7-10.4 [facility] [place]pdSBZSSSERHF0972-72-76 09:34:00 Test Item Value Reference Range Interpretation Comments RBC (test code = RBC) 3.75 4.70-6.10 [facility]OzfywbmJUOCTMJOPV0024-53-77 09:34:00 Test Item Value Reference Range Interpretation Comments Hgb (test code = Hgb) 10.7 14.0-18.0 [place] 079632-08-11 09:34:00 Test Item Value Reference Range Interpretation Comments Hct (test code = Hct) 32.3 42.0-54.0 [facility] ArlingtonAshnzhpZGAKMNGFSB4427-90-14 09:34:00 Test Item Value Reference Range Interpretation Comments MCV (test code = MCV) 86.0 80.0-94.0 [facility] ArlingtonTpackwaROWTEMZMVW2971-09-77 09:34:00 Test Item Value Reference Range Interpretation Comments MCH (test code = MCH) 28.6 pg 27.0-31.0 [facility] ArlingtonZwpjtwmOJTNVAPDBK5197-50-47 09:34:00 Test Item Value Reference Range Interpretation Comments MCHC (test code = MCHC) 33.2 32.0-36.0 [facility] ArlingtonTnrxkfrRTYAYMLHRG2797-91-39 09:34:00 Test Item Value Reference Range Interpretation Comments RDW (test code = RDW) 17.6 11.5-14.5 [facility] ArlingtonNkzcvcuMLKZRMUVKA8420-41-06 09:34:00 Test Item Value Reference Range Interpretation Comments Platelet (test code = Platelet) 142 133-450 [facility] ArlingtonVyyileaKWTJMVMFZR7426-19-35 09:34:00 Test Item Value Reference Range Interpretation Comments MPV (test code = MPV) 7.5 7.4-10.4 [place] 079632-08-11 09:34:00 Test Item Value Reference Range Interpretation Comments Segs (test code = Segs) 75.8 45.0-75.0 [facility] ArlingtonYsochpcRAGERMLVEI7265-44-78 09:34:00 Test Item Value Reference Range Interpretation Comments Lymphocytes (test code = Lymphocytes) 12.6 20.0-40.0 [facility] ArlingtonXwxrjcrLDPIBDGQLJ7402-36-27 09:34:00 Test Item Value Reference Range Interpretation Comments Monocytes (test code = Monocytes) 9.8 2.0-12.0 [place] 079632-08-11 09:34:00 Test Item Value Reference Range Interpretation Comments Eosinophils (test code = 1.1 See_Comment [A utomated message] The Eosinophils) system which ge nerated this result tra nsmitted reference range : <=4.0. The reference r tomasa was not used to int erpret this result as normal/abnormal . [facility] ArlingtonJqnfuztNMPCOIJWWE5830-73-86 09:34:00 Test Item Value Reference Range Interpretation Comments Basophils (test code = 0.7 See_Comment [Aut omated message] The Basophils) system which ge nerated this result tra nsmitted reference range : <=1.0. The reference r tomasa was not used to int erpret this result as normal/abnormal . [facility] ArlingtonHwnjyqmYCMWDANKWS4483-90-13 09:34:00 Test Item Value Reference Range Interpretation Comments Neutrophils # (test code = Neutrophils 4.0 1.5-8.1 #) [facility] ArlingtonZfozzjxRSNVHJYAGA1731-77-23 09:34:00 Test Item Value Reference Range Interpretation Comments Lymphocytes # (test code = Lymphocytes 0.7 1.0-5.5 #) [place] 079632-08-11 09:34:00 Test Item Value Reference Range Interpretation Comments Monocytes # (test code 0.5 See_Comment [Aut omated message] The = Monocytes #) system which generated this result tra nsmitted reference range : <=0.8. The reference r tomasa was not used to int erpret this result as normal/abnormal . [facility] ArlingtonLuwllopMIHLFKDHXB1450-03-23 09:34:00 Test Item Value Reference Range Interpretation Comments Eosinophils # (test code 0.1 See_Comment [A utomated message] The = Eosinophils #) system whic h generated this result tra nsmitted reference range : <=0.5. The reference r tomasa was not used to int erpret this result as normal/abnormal . [facility]IrwfufeGVRKDRUHVF7483-64-22 09:10:00 Test Item Value Reference Range Interpretation Comments Spec Type (UPE) (test code = random, 100x Spec Type (UPE)) [place] 763632-08-11 09:10:00 Test Item Value Reference Range Interpretation Comments Tot Prot (UPE) (test code = Tot Prot 13 (UPE)) [facility]ZnlbcgjWIOBZGPJTR9095-44-01 09:10:00 Test Item Value Reference Range Interpretation Comments Interp (UPE) (test Urine protein code = Interp electrophoresis shows (UPE)) minimal proteinuria. No monoclonal bands are identified; however, evaluation is limited by the small amount of protein and the resulting lack of discernible bands on the electrophoretic gel. Interpretation performed at [facility]. [facility]2022-08-11 09:10:00 Test Item Value Reference Range Interpretation Comments U Prot/Creat (test code = U 0.27 1 Prot/Creat) [place] 572762-08-11 09:10:00 Test Item Value Reference Range Interpretation Comments U Creatinine (test code = U Creatinine) 55.60 [place] 572762-08-11 09:10:00 Test Item Value Reference Range Interpretation Comments U Sodium (test code = U Sodium) 45 [place] 572762-08-11 09:10:00 Test Item Value Reference Range Interpretation Comments U Protein (test code = U Protein) 15.0 [place] 763632-08-11 09:10:00 Test Item Value Reference Range Interpretation Comments Spec Type (UPE) (test code = random, 100x Spec Type (UPE)) [place] [address]-08-11 09:10:00 Test Item Value Reference Range Interpretation Comments Tot Prot (UPE) (test code = Tot Prot 13 (UPE)) [place] 763632-08-11 09:10:00 Test Item Value Reference Range Interpretation Comments Interp (UPE) (test Urine protein code = Interp electrophoresis shows (UPE)) minimal proteinuria. No monoclonal bands are identified; however, evaluation is limited by the small amount of protein and the resulting lack of discernible bands on the electrophoretic gel. Interpretation performed at [facility]. [place] 572762-08-11 09:10:00 Test Item Value Reference Range Interpretation Comments U Prot/Creat (test code = U 0.27 1 Prot/Creat) [address]08-11 09:10:00 Test Item Value Reference Range Interpretation Comments U Creatinine (test code = U Creatinine) 55.60 [facility]2022-08-11 09:10:00 Test Item Value Reference Range Interpretation Comments U Sodium (test code = U Sodium) 45 [facility]2022-08-11 09:10:00 Test Item Value Reference Range Interpretation Comments U Protein (test code = U Protein) 15.0 [facility]2022-08-10 19:07:00 Test Item Value Reference Range Interpretation Comments Lactic Acid Lvl (test code = Lactic 2.5 0.5-2.2 Acid Lvl) [facility]2022-08-10 19:07:00 Test Item Value Reference Range Interpretation Comments Procalcitonin Lvl (test 0.71 See_Comment [Au tomated message] code = Procalcitonin Lvl) e system which generated this result transmitted ref erence range: <=0.10. The reference range was not used to interpr et this result as normal/abnormal . [facility] ArlingtonScbdnveJSSOZCHAMN9052-86-23 19:07:00 Test Item Value Reference Range Interpretation Comments WBC (test code = WBC) 5.7 3.7-10.4 [facility] ArlingtonAowltayPMQBLOFJVV4403-43-87 19:07:00 Test Item Value Reference Range Interpretation Comments RBC (test code = RBC) 3.90 4.70-6.10 [facility] ArlingtonJfrjlbzDWTDUOUYBL2799-27-91 19:07:00 Test Item Value Reference Range Interpretation Comments Hgb (test code = Hgb) 11.1 14.0-18.0 [facility] ArlingtonTedtvbdITYDCZUCAK6958-88-68 19:07:00 Test Item Value Reference Range Interpretation Comments Hct (test code = Hct) 33.2 42.0-54.0 [facility] ArlingtonVjqkmesDYQYRDDMPG0752-34-87 19:07:00 Test Item Value Reference Range Interpretation Comments MCV (test code = MCV) 85.1 80.0-94.0 [facility] ArlingtonKfxvplkOOTBNXAHFQ2079-71-73 19:07:00 Test Item Value Reference Range Interpretation Comments MCH (test code = MCH) 28.4 pg 27.0-31.0 [facility] ArlingtonChmsldnOGPCFUVAJJ1578-85-57 19:07:00 Test Item Value Reference Range Interpretation Comments MCHC (test code = MCHC) 33.4 32.0-36.0 [facility] ArlingtonAcfcfofOHWPBBJCFU2057-50-62 19:07:00 Test Item Value Reference Range Interpretation Comments RDW (test code = RDW) 17.9 11.5-14.5 [place] 079632-08-10 19:07:00 Test Item Value Reference Range Interpretation Comments Platelet (test code = Platelet) 174 133-450 [facility] ArlingtonTwbdlbgMRXJRXHNYN6123-30-90 19:07:00 Test Item Value Reference Range Interpretation Comments MPV (test code = MPV) 7.8 7.4-10.4 [facility] ArlingtonXntsliuMIJYSGGLNV5509-96-22 19:07:00 Test Item Value Reference Range Interpretation Comments Segs (test code = Segs) 80.9 45.0-75.0 [facility] ArlingtonPrpzwxzJFPNUREVIR9622-81-21 19:07:00 Test Item Value Reference Range Interpretation Comments Lymphocytes (test code = Lymphocytes) 10.3 20.0-40.0 [facility] ArlingtonFhtgcmgETYXLTDIHA4892-02-65 19:07:00 Test Item Value Reference Range Interpretation Comments Monocytes (test code = Monocytes) 8.1 2.0-12.0 [facility] ArlingtonCtzxzkyVISBXELKGE6531-87-79 19:07:00 Test Item Value Reference Range Interpretation Comments Eosinophils (test code = 0.2 See_Comment [A utomated message] The Eosinophils) system which ge nerated this result tra nsmitted reference range : <=4.0. The reference r tomasa was not used to int erpret this result as normal/abnormal . [facility] ArlingtonGkmpimrVMIIYFAUCD8522-42-52 19:07:00 Test Item Value Reference Range Interpretation Comments Basophils (test code = 0.5 See_Comment [Aut omated message] The Basophils) system which ge nerated this result tra nsmitted reference range : <=1.0. The reference r tomasa was not used to int erpret this result as normal/abnormal . [facility] ArlingtonCmioibxLVWGVLMMLQ5095-79-47 19:07:00 Test Item Value Reference Range Interpretation Comments Neutrophils # (test code = Neutrophils 4.6 1.5-8.1 #) [facility] ArlingtonXcgbypiYEIFUSDUJW8906-10-99 19:07:00 Test Item Value Reference Range Interpretation Comments Lymphocytes # (test code = Lymphocytes 0.6 1.0-5.5 #) [facility] ArlingtonHrgdlpePLKJEQCSLK1056-94-82 19:07:00 Test Item Value Reference Range Interpretation Comments Monocytes # (test code 0.5 See_Comment [Aut omated message] The = Monocytes #) system which generated this result tra nsmitted reference range : <=0.8. The reference r tomasa was not used to int erpret this result as normal/abnormal . [facility]Guestmob BYOYX1022-27-16 19:07:00 Test Item Value Reference Range Interpretation Comments Lactic Acid Lvl (test code = Lactic 2.5 0.5-2.2 Acid Lvl) [facility]Guestmob JLTQZ0543-77-40 19:07:00 Test Item Value Reference Range Interpretation Comments Procalcitonin Lvl (test 0.71 See_Comment [Au tomated message] code = Procalcitonin Lvl) Th e system which generated this result transmitted ref erence range: <=0.10. The reference range was not used to interpr et this result as normal/abnormal . [facility] ArlingtonQhjenahUITVZJYCEZ9730-50-18 19:07:00 Test Item Value Reference Range Interpretation Comments WBC (test code = WBC) 5.7 3.7-10.4 [facility] ArlingtonItclohjODVFEDNBAP9245-12-66 19:07:00 Test Item Value Reference Range Interpretation Comments RBC (test code = RBC) 3.90 4.70-6.10 [facility] ArlingtonKfivaezRSQTLRYCCP7656-26-77 19:07:00 Test Item Value Reference Range Interpretation Comments Hgb (test code = Hgb) 11.1 14.0-18.0 [facility] ArlingtonTjzncbrLXKIEMJWJO1955-42-98 19:07:00 Test Item Value Reference Range Interpretation Comments Hct (test code = Hct) 33.2 42.0-54.0 [place] 079632-08-10 19:07:00 Test Item Value Reference Range Interpretation Comments MCV (test code = MCV) 85.1 80.0-94.0 [facility] ArlingtonVvodawqAYXQFKLOYJ8869-93-97 19:07:00 Test Item Value Reference Range Interpretation Comments MCH (test code = MCH) 28.4 pg 27.0-31.0 [facility] ArlingtonElphdfaSZPEBVRBNY5812-84-15 19:07:00 Test Item Value Reference Range Interpretation Comments MCHC (test code = MCHC) 33.4 32.0-36.0 [facility] ArlingtonRvpygczNZMWMGAFNV1756-50-63 19:07:00 Test Item Value Reference Range Interpretation Comments RDW (test code = RDW) 17.9 11.5-14.5 [facility] ArlingtonQdqegzbWEPWNAUZEX5855-13-72 19:07:00 Test Item Value Reference Range Interpretation Comments Platelet (test code = Platelet) 174 133-450 [facility] ArlingtonWyzbcbcOQQSXKNMXD3101-24-43 19:07:00 Test Item Value Reference Range Interpretation Comments MPV (test code = MPV) 7.8 7.4-10.4 [facility] ArlingtonXznfyztIAXKBHEYFG2190-10-60 19:07:00 Test Item Value Reference Range Interpretation Comments Segs (test code = Segs) 80.9 45.0-75.0 [facility] ArlingtonFekccrwGOZGOYWPOP8642-98-91 19:07:00 Test Item Value Reference Range Interpretation Comments Lymphocytes (test code = Lymphocytes) 10.3 20.0-40.0 [facility] ArlingtonGejmqelRIHRTCBNZK5354-36-57 19:07:00 Test Item Value Reference Range Interpretation Comments Monocytes (test code = Monocytes) 8.1 2.0-12.0 [facility] ArlingtonBkchyhnIZJGRQFYPE5112-40-97 19:07:00 Test Item Value Reference Range Interpretation Comments Eosinophils (test code = 0.2 See_Comment [A utomated message] The Eosinophils) system which ge nerated this result tra nsmitted reference range : <=4.0. The reference r tomasa was not used to int erpret this result as normal/abnormal . [facility] ArlingtonSkkvcapDTYWGDPDCC7887-06-90 19:07:00 Test Item Value Reference Range Interpretation Comments Basophils (test code = 0.5 See_Comment [Aut omated message] The Basophils) system which ge nerated this result tra nsmitted reference range : <=1.0. The reference r tomasa was not used to int erpret this result as normal/abnormal . [facility] ArlingtonRucbpmbTPCDPSJOJB9148-82-55 19:07:00 Test Item Value Reference Range Interpretation Comments Neutrophils # (test code = Neutrophils 4.6 1.5-8.1 #) [facility] ArlingtonZwatmjwJLMUQDTFWQ4423-04-70 19:07:00 Test Item Value Reference Range Interpretation Comments Lymphocytes # (test code = Lymphocytes 0.6 1.0-5.5 #) [facility] ArlingtonFqwbjytVLITPYMGYP3209-71-47 19:07:00 Test Item Value Reference Range Interpretation Comments Monocytes # (test code 0.5 See_Comment [Aut omated message] The = Monocytes #) system which generated this result tra nsmitted reference range : <=0.8. The reference r tomasa was not used to int erpret this result as normal/abnormal . [facility] HospitalCHEM [id number] 17:35:00 Test Item Value Reference Range Interpretation Comments Lactic Acid Lvl (test code = Lactic 2.8 0.5-2.2 Acid Lvl) [facility] HospitalCHEM [id number] 17:35:00 Test Item Value Reference Range Interpretation Comments Lactic Acid Lvl (test code = Lactic 2.8 0.5-2.2 Acid Lvl) [facility] AND [id number] 16:45:00 Test Item Value Reference Range Interpretation Comments UA Color (test code = Yellow *NA*(01/02/22 UA Color) 11:45 AM) [facility] AND [id number] 16:45:00 Test Item Value Reference Range Interpretation Comments UA Turbidity (test code Slight Cloudy = UA Turbidity) (01/02/22 11:45 AM) [facility] AND [id number] 16:45:00 Test Item Value Reference Range Interpretation Comments UA Spec Grav (test code = UA Spec 1.010 1 Grav) [facility] AND [id number] 16:45:00 Test Item Value Reference Range Interpretation Comments UA pH (test code = UA pH) 6.0 1 5.0-8.0 [facility] AND [id number] 16:45:00 Test Item Value Reference Range Interpretation Comments UA Protein (test code Negative (01/02/22 11:45 = UA Protein) AM) [facility] AND [id number] 16:45:00 Test Item Value Reference Range Interpretation Comments UA Glucose (test code Negative (01/02/22 11:45 = UA Glucose) AM) [facility] AND [id number] 16:45:00 Test Item Value Reference Range Interpretation Comments UA Ketones (test code Negative *NA*(01/02/22 = UA Ketones) 11:45 AM) [facility] AND [id number] 16:45:00 Test Item Value Reference Range Interpretation Comments UA Bili (test code = Negative *NA*(01/02/22 UA Bili) 11:45 AM) [facility] [id number] 16:45:00 Test Item Value Reference Range Interpretation Comments UA Blood (test code = Negative (01/02/22 11:45 UA Blood) AM) [facility] [id number] 16:45:00 Test Item Value Reference Range Interpretation Comments UA Urobilinogen (test code = UA 0.2 0.1-1.0 Urobilinogen) [facility] [id number] 16:45:00 Test Item Value Reference Range Interpretation Comments UA Nitrite (test code Negative (01/02/22 11:45 = UA Nitrite) AM) [facility] [id number] 16:45:00 Test Item Value Reference Range Interpretation Comments UA Leuk Est (test Moderate *ABN*(01/02/22 code = UA Leuk Est) 11:45 AM) [facility] [id number] 16:45:00 Test Item Value Reference Range Interpretation Comments UA Sq Epi (test code = UA Sq Occasional /LPF Epi) [facility] [id number] 16:45:00 Test Item Value Reference Range Interpretation Comments UA WBC (test code = 27 See_Comment [Automa debbie message] The UA WBC) system which ge nerated this result transmit debbie reference range : <=5. The reference range was not used to interpr et this result as eva l/abnormal. [facility] [id number] 16:45:00 Test Item Value Reference Range Interpretation Comments UA RBC (test code = 2 See_Comment [Automa debbie message] The UA RBC) system which ge nerated this result transmit debbie reference range : <=2. The reference range was not used to interpr et this result as eva l/abnormal. [facility] [id number] 16:45:00 Test Item Value Reference Range Interpretation Comments UA Bacteria (test code = UA Occasional /HPF Bacteria) [facility] [id number] 16:45:00 Test Item Value Reference Range Interpretation Comments UA [place] Yeast (test code = UA [place] Few /HPF Yeast) [facility] [id number] 16:45:00 Test Item Value Reference Range Interpretation Comments UA Hyph Yeast (test Occasional *ABN*(01/02/22 code = UA Hyph 11:45 AM) Yeast) [facility] [id number] 16:45:00 Test Item Value Reference Range Interpretation Comments U Eos (test code = U None Seen (01/02/22 Eos) 11:45 AM) [facility] [id number] 16:45:00 Test Item Value Reference Range Interpretation Comments UA Color (test code = Yellow *NA*(01/02/22 UA Color) 11:45 AM) [facility] [id number] 16:45:00 Test Item Value Reference Range Interpretation Comments UA Turbidity (test code Slight Cloudy = UA Turbidity) (01/02/22 11:45 AM) [facility] [id number] 16:45:00 Test Item Value Reference Range Interpretation Comments UA Spec Grav (test code = UA Spec 1.010 1 Grav) [facility] [id number] 16:45:00 Test Item Value Reference Range Interpretation Comments UA pH (test code = UA pH) 6.0 1 5.0-8.0 [facility] [id number] 16:45:00 Test Item Value Reference Range Interpretation Comments UA Protein (test code Negative (01/02/22 11:45 = UA Protein) AM) [facility] [id number] 16:45:00 Test Item Value Reference Range Interpretation Comments UA Glucose (test code Negative (01/02/22 11:45 = UA Glucose) AM) [facility] [id number] 16:45:00 Test Item Value Reference Range Interpretation Comments UA Ketones (test code Negative *NA*(01/02/22 = UA Ketones) 11:45 AM) [facility] [id number] 16:45:00 Test Item Value Reference Range Interpretation Comments UA Bili (test code = Negative *NA*(01/02/22 UA Bili) 11:45 AM) [facility] [id number] 16:45:00 Test Item Value Reference Range Interpretation Comments UA Blood (test code = Negative (01/02/22 11:45 UA Blood) AM) [facility] [id number] 16:45:00 Test Item Value Reference Range Interpretation Comments UA Urobilinogen (test code = UA 0.2 0.1-1.0 Urobilinogen) [facility] [id number] 16:45:00 Test Item Value Reference Range Interpretation Comments UA Nitrite (test code Negative (01/02/22 11:45 = UA Nitrite) AM) [facility] [id number] 16:45:00 Test Item Value Reference Range Interpretation Comments UA Leuk Est (test Moderate *ABN*(01/02/22 code = UA Leuk Est) 11:45 AM) [facility] [id number] 16:45:00 Test Item Value Reference Range Interpretation Comments UA Sq Epi (test code = UA Sq Occasional /LPF Epi) [facility] [id number] 16:45:00 Test Item Value Reference Range Interpretation Comments UA WBC (test code = 27 See_Comment [Automa debbie message] The UA WBC) system which ge nerated this result transmit debbie reference range : <=5. The reference range was not used to interpr et this result as eva l/abnormal. [facility] [id number] 16:45:00 Test Item Value Reference Range Interpretation Comments UA RBC (test code = 2 See_Comment [Automa debbie message] The UA RBC) system which ge nerated this result transmit debbie reference range : <=2. The reference range was not used to interpr et this result as eva l/abnormal. [facility] [id number] 16:45:00 Test Item Value Reference Range Interpretation Comments UA Bacteria (test code = UA Occasional /HPF Bacteria) [facility] [id number] 16:45:00 Test Item Value Reference Range Interpretation Comments UA [place] Yeast (test code = UA [place] Few /HPF Yeast) [facility] [id number] 16:45:00 Test Item Value Reference Range Interpretation Comments UA Hyph Yeast (test Occasional *ABN*(01/02/22 code = UA Hyph 11:45 AM) Yeast) [facility] [id number] 16:45:00 Test Item Value Reference Range Interpretation Comments U Eos (test code = U None Seen (01/02/22 Eos) 11:45 AM) [facility]BumyoimWOETYPHEXH1446-29-08 15:17:00 Test Item Value Reference Range Interpretation Comments Hep A IgM (test code = Hep A NON-REACTIVE IgM) [facility] Cent[id number] 15:17:00 Test Item Value Reference Range Interpretation Comments Hep Bs Ag (test code = Hep Bs NON-REACTIVE Ag) [facility] C[id number] 15:17:00 Test Item Value Reference Range Interpretation Comments Hep B Core IgM (test code = Hep NON-REACTIVE B Core IgM) [facility] Cent[id number] 15:17:00 Test Item Value Reference Range Interpretation Comments Hep C Ab (test code = Hep C Ab) NON-REACTIVE [place] [address]-08-10 15:17:00 Test Item Value Reference Range Interpretation Comments Hep Signal to Cut-Off (test code = Hep 0.10 1 Signal to Cut-Off) [facility] CenterHsslpxcKPEJNHXFFI6755-27-88 15:17:00 Test Item Value Reference Range Interpretation Comments LOGAN (test code = LOGAN) NEGATIVE [facility] CenterPpjcsrwJPKIDFLHWG6859-04-37 15:17:00 Test Item Value Reference Range Interpretation Comments AMA Ab Scr (test code = AMA Ab Scr) NEGATIVE [facility] CenterWxbzdvsUBVPNEGQHL4427-90-70 15:17:00 Test Item Value Reference Range Interpretation Comments SMA Screen (test code = SMA Screen) NEGATIVE [facility] C[id number] 15:17:00 Test Item Value Reference Range Interpretation Comments Hep A IgM (test code = Hep A NON-REACTIVE IgM) [place] [id number] 15:17:00 Test Item Value Reference Range Interpretation Comments Hep Bs Ag (test code = Hep Bs NON-REACTIVE Ag) [facility] CenterQibogmmKPMLTLZDAV9221-65-55 15:17:00 Test Item Value Reference Range Interpretation Comments Hep B Core IgM (test code = Hep NON-REACTIVE B Core IgM) [facility] CenterSihowmmNOHFVYLWOL6783-12-06 15:17:00 Test Item Value Reference Range Interpretation Comments Hep C Ab (test code = Hep C Ab) NON-REACTIVE [facility] CenterYxsfbqhONPRZSMWLU5771-06-24 15:17:00 Test Item Value Reference Range Interpretation Comments Hep Signal to Cut-Off (test code = Hep 0.10 1 Signal to Cut-Off) [facility] CenterKpeftimJFQGQNNDHE0990-21-73 15:17:00 Test Item Value Reference Range Interpretation Comments LOGAN (test code = LOGAN) NEGATIVE [place] [id number] 15:17:00 Test Item Value Reference Range Interpretation Comments AMA Ab Scr (test code = AMA Ab Scr) NEGATIVE [facility] CenterDebyzumNKFHIYIJIV3521-68-26 15:17:00 Test Item Value Reference Range Interpretation Comments SMA Screen (test code = SMA Screen) NEGATIVE [place] 572762-08-10 11:35:00 Test Item Value Reference Range Interpretation Comments U Sodium (test code = U Sodium) 23 [facility]2022-08-10 11:35:00 Test Item Value Reference Range Interpretation Comments U Potassium (test code = U Potassium) 26.8 [facility]2022-08-10 11:35:00 Test Item Value Reference Range Interpretation Comments U Chloride (test code = U Chloride) 21 [place] 572762-08-10 11:35:00 Test Item Value Reference Range Interpretation Comments U Sodium (test code = U Sodium) 23 [place] 572762-08-10 11:35:00 Test Item Value Reference Range Interpretation Comments U Potassium (test code = U Potassium) 26.8 [facility]2022-08-10 11:35:00 Test Item Value Reference Range Interpretation Comments U Chloride (test code = U Chloride) 21 [facility]2022-08-10 09:08:00 Test Item Value Reference Range Interpretation Comments Lactic Acid Lvl (test code = Lactic 1.1 0.5-2.2 Acid Lvl) [facility]2022-08-10 09:08:00 Test Item Value Reference Range Interpretation Comments Lactic Acid Lvl (test code = Lactic 1.1 0.5-2.2 Acid Lvl) [place] 269972-08-10 05:59:00 Test Item Value Reference Range Interpretation Comments Lipase Lvl (test code = Lipase Lvl) 349 16-393 [facility]2022-08-10 05:59:00 Test Item Value Reference Range Interpretation Comments Lipase Lvl (test code = Lipase Lvl) 349 68-393 [place] 763632-08-09 19:47:00 Test Item Value Reference Range Interpretation Comments Coronavirus (COVID-19) Not Detected (01/01/22 GHASSAN (test code = 2:47 PM) Coronavirus (COVID-19) GHASSAN) [facility]qaouNFGSTXHXTW9033-[facility] 19:47:00 Test Item Value Reference Range Interpretation Comments Coronavirus (COVID-19) Not Detected (01/01/22 GHASSAN (test code = 2:47 PM) Coronavirus (COVID-19) GHASSAN) [facility]annCARDIAC [id number] 19:41:00 Test Item Value Reference Range Interpretation Comments BNP (test code = BNP) 122 [facility]ARD[facility] FGHPJQD3104-36-95 19:41:00 Test Item Value Reference Range Interpretation Comments Total CK (test code = Total CK) [facility]annCARCaptifyAC [id number] 19:41:00 Test Item Value Reference Range Interpretation Comments HS Troponin I (test code = HS Troponin 111 I) [facility]roeGvnnaatACHOKOILMP6288-99-67 19:41:00 Test Item Value Reference Range Interpretation Comments Basophils # (test code 0.1 See_Comment [Aut omated message] The = Basophils #) system which generated this result tra nsmitted reference range : <=0.2. The reference r tomasa was not used to int erpret this result as normal/abnormal . [facility] LLLerCARCaptifyAC [id number] 19:41:00 Test Item Value Reference Range Interpretation Comments BNP (test code = BNP) 122 [facility]roePlayneryCARCaptifyAC [id number] 19:41:00 Test Item Value Reference Range Interpretation Comments Total CK (test code = Total CK) [facility]PlayneryCARCaptifyAC [id number] 19:41:00 Test Item Value Reference Range Interpretation Comments HS Troponin I (test code = HS Troponin 111 I) [facility]roeOmfiqkfYOADHSGULE4345-15-38 19:41:00 Test Item Value Reference Range Interpretation Comments Basophils # (test code 0.1 See_Comment [Aut omated message] The = Basophils #) system which generated this result tra nsmitted reference range : <=0.2. The reference r tomasa was not used to int erpret this result as normal/abnormal . [facility] LLLerCHEM [id number] 19:14:00 Test Item Value Reference Range Interpretation Comments Glucose Lvl (test code = Glucose Lvl) 130 65-139 [place] 269972-07-22 19:14:00 Test Item Value Reference Range Interpretation Comments BUN (test code = BUN) 124 7-25 [place] 269972-07-22 19:14:00 Test Item Value Reference Range Interpretation Comments Creatinine Lvl (test code = Creatinine 4.67 0.70-1.28 Lvl) [place] 269972-07-22 19:14:00 Test Item Value Reference Range Interpretation Comments eGFR (test code = eGFR) 12 [place] 269972-07-22 19:14:00 Test Item Value Reference Range Interpretation Comments B/C Ratio (test code = B/C Ratio) 27 6-22 [place] 269972-07-22 19:14:00 Test Item Value Reference Range Interpretation Comments Sodium Lvl (test code = Sodium Lvl) 133 135-146 [place] 269972-07-22 19:14:00 Test Item Value Reference Range Interpretation Comments Potassium Lvl (test code = Potassium 4.3 3.5-5.3 Lvl) [place] 269972-07-22 19:14:00 Test Item Value Reference Range Interpretation Comments Chloride Lvl (test code = Chloride Lvl) 94 98-110 [place] 269972-07-22 19:14:00 Test Item Value Reference Range Interpretation Comments CO2 (test code = CO2) 24 20-32 [place] 269972-07-22 19:14:00 Test Item Value Reference Range Interpretation Comments Calcium Lvl (test code = Calcium Lvl) 9.5 8.6-10.3 [place] 269972-07-22 19:14:00 Test Item Value Reference Range Interpretation Comments Total Protein (test code = Total 6.2 6.1-8.1 Protein) [place] 269972-07-22 19:14:00 Test Item Value Reference Range Interpretation Comments Albumin Lvl (test code = Albumin Lvl) 3.6 3.6-5.1 [place] 269972-07-22 19:14:00 Test Item Value Reference Range Interpretation Comments Globulin (test code = Globulin) 2.6 1.9-3.7 [place] 269972-07-22 19:14:00 Test Item Value Reference Range Interpretation Comments A/G Ratio (test code = A/G Ratio) 1.4 1.0-2.5 [facility]2022-07-22 19:14:00 Test Item Value Reference Range Interpretation Comments Bili Total (test code = Bili Total) 0.7 0.2-1.2 [facility]2022-07-22 19:14:00 Test Item Value Reference Range Interpretation Comments Alk Phos (test code = Alk Phos) 99 35-144 [facility]2022-07-22 19:14:00 Test Item Value Reference Range Interpretation Comments ASPARTATE TRANSAMINASE (test code = 71 10-35 ASPARTATE TRANSAMINASE) [facility]2022-07-22 19:14:00 Test Item Value Reference Range Interpretation Comments ALANINE AMINOTRANSFERASE (test code = 88 9-46 ALANINE AMINOTRANSFERASE) [place] 079632-07-22 19:14:00 Test Item Value Reference Range Interpretation Comments WBC X 10x3 (test code = WBC X 10x3) 9.5 3.8-10.8 [place] 079632-07-22 19:14:00 Test Item Value Reference Range Interpretation Comments RBC X 10x6 (test code = RBC X 10x6) 4.81 4.20-5.80 [place] 079632-07-22 19:14:00 Test Item Value Reference Range Interpretation Comments Hgb (test code = Hgb) 13.9 13.2-17.1 [facility]RcqrfdxKVTMVPVRTQ1642-18-39 19:14:00 Test Item Value Reference Range Interpretation Comments Hct (test code = Hct) 40.8 38.5-50.0 [place] 079632-07-22 19:14:00 Test Item Value Reference Range Interpretation Comments MCV (test code = MCV) 84.8 80.0-100.0 [place] 079632-07-22 19:14:00 Test Item Value Reference Range Interpretation Comments MCH (test code = MCH) 28.9 pg 27.0-33.0 [place] 079632-07-22 19:14:00 Test Item Value Reference Range Interpretation Comments MCHC (test code = MCHC) 34.1 32.0-36.0 [place] 079632-07-22 19:14:00 Test Item Value Reference Range Interpretation Comments RDW (test code = RDW) 15.6 11.0-15.0 [facility] ArlingtonFsmkdapWVMCAYNFWW8941-48-31 19:14:00 Test Item Value Reference Range Interpretation Comments Platelet (test code = Platelet) 265 140-400 [facility] ArlingtonWqkkaakWQCOSAFPTS4914-32-07 19:14:00 Test Item Value Reference Range Interpretation Comments MPV (test code = MPV) 9.9 7.5-12.5 [facility] ArlingtonQaekdggTDEKVKPYKM3867-17-37 19:14:00 Test Item Value Reference Range Interpretation Comments Neutrophils # (test code = Neutrophils 6907 4182-7195 #) [facility] ArlingtonOmmfwunMNATWIHERD0531-73-43 19:14:00 Test Item Value Reference Range Interpretation Comments Lymphocytes # (test code = Lymphocytes 3488 685-9117 #) [facility] ArlingtonCvdswgwXGTIBXLFIJ4348-85-80 19:14:00 Test Item Value Reference Range Interpretation Comments Monocytes # (test code = Monocytes #) 950 200-950 [facility] ArlingtonEtsgszhYTFWQJGOMU5810-97-41 19:14:00 Test Item Value Reference Range Interpretation Comments Eosinophils # (test code = Eosinophils 29 15-500 #) [facility] ArlingtonLdzjsyaQSVQIIZDBV4208-52-35 19:14:00 Test Item Value Reference Range Interpretation Comments Basophils # (test code 29 See_Comment [Aut omated message] The = Basophils #) system which generated this result tra nsmitted reference range : <=200. The reference r tomasa was not used to int erpret this result as normal/abnormal . [facility] ArlingtonVcuwcedZIIFNFLAXF2819-85-86 19:14:00 Test Item Value Reference Range Interpretation Comments Segs (test code = Segs) 72.7 [facility] ArlingtonLujtcbjPAPHOMBJIA2759-19-59 19:14:00 Test Item Value Reference Range Interpretation Comments Lymphocytes (test code = Lymphocytes) 16.7 [facility] ArlingtonTncagidPXPBZAEYDW3311-56-55 19:14:00 Test Item Value Reference Range Interpretation Comments Monocytes (test code = Monocytes) 10.0 [facility] ArlingtonFnnxonmBGNBMIYCGZ8926-23-91 19:14:00 Test Item Value Reference Range Interpretation Comments Eosinophils (test code = Eosinophils) 0.3 [facility] ArlingtonNsscetjCUYPGKHXMV4960-55-97 19:14:00 Test Item Value Reference Range Interpretation Comments Basophils (test code = Basophils) 0.3 [place] 079632-07-22 19:14:00 Test Item Value Reference Range Interpretation Comments Diff Comment (test code = Diff SEE COMMENT Comment) [place] 269972-07-22 19:14:00 Test Item Value Reference Range Interpretation Comments Glucose Lvl (test code = Glucose Lvl) 130 65-139 [place] 269972-07-22 19:14:00 Test Item Value Reference Range Interpretation Comments BUN (test code = BUN) 124 7-25 [place] 269972-07-22 19:14:00 Test Item Value Reference Range Interpretation Comments Creatinine Lvl (test code = Creatinine 4.67 0.70-1.28 Lvl) [place] 269972-07-22 19:14:00 Test Item Value Reference Range Interpretation Comments eGFR (test code = eGFR) 12 [place] 269972-07-22 19:14:00 Test Item Value Reference Range Interpretation Comments B/C Ratio (test code = B/C Ratio) 27 6-22 [place] 269972-07-22 19:14:00 Test Item Value Reference Range Interpretation Comments Sodium Lvl (test code = Sodium Lvl) 133 135-146 [place] 269972-07-22 19:14:00 Test Item Value Reference Range Interpretation Comments Potassium Lvl (test code = Potassium 4.3 3.5-5.3 Lvl) [facility]2022-07-22 19:14:00 Test Item Value Reference Range Interpretation Comments Chloride Lvl (test code = Chloride Lvl) 94 98-110 [place] 269972-07-22 19:14:00 Test Item Value Reference Range Interpretation Comments CO2 (test code = CO2) 24 20-32 [place] 269972-07-22 19:14:00 Test Item Value Reference Range Interpretation Comments Calcium Lvl (test code = Calcium Lvl) 9.5 8.6-10.3 [place] 269972-07-22 19:14:00 Test Item Value Reference Range Interpretation Comments Total Protein (test code = Total 6.2 6.1-8.1 Protein) [place] 269972-07-22 19:14:00 Test Item Value Reference Range Interpretation Comments Albumin Lvl (test code = Albumin Lvl) 3.6 3.6-5.1 [place] 53219-07-22 19:14:00 Test Item Value Reference Range Interpretation Comments Globulin (test code = Globulin) 2.6 1.9-3.7 [place] 269972-07-22 19:14:00 Test Item Value Reference Range Interpretation Comments A/G Ratio (test code = A/G Ratio) 1.4 1.0-2.5 [place] 269972-07-22 19:14:00 Test Item Value Reference Range Interpretation Comments Bili Total (test code = Bili Total) 0.7 0.2-1.2 [place] 269972-07-22 19:14:00 Test Item Value Reference Range Interpretation Comments Alk Phos (test code = Alk Phos) 99 35-144 [facility]2022-07-22 19:14:00 Test Item Value Reference Range Interpretation Comments ASPARTATE TRANSAMINASE (test code = 71 10-35 ASPARTATE TRANSAMINASE) [place] 269972-07-22 19:14:00 Test Item Value Reference Range Interpretation Comments ALANINE AMINOTRANSFERASE (test code = 88 9-46 ALANINE AMINOTRANSFERASE) [facility] ArlingtonSrhqadlMJAZWDKWTU6818-57-78 19:14:00 Test Item Value Reference Range Interpretation Comments WBC X 10x3 (test code = WBC X 10x3) 9.5 3.8-10.8 [place] 079632-07-22 19:14:00 Test Item Value Reference Range Interpretation Comments RBC X 10x6 (test code = RBC X 10x6) 4.81 4.20-5.80 [place] 079632-07-22 19:14:00 Test Item Value Reference Range Interpretation Comments Hgb (test code = Hgb) 13.9 13.2-17.1 [place] 079632-07-22 19:14:00 Test Item Value Reference Range Interpretation Comments Hct (test code = Hct) 40.8 38.5-50.0 [place] 079632-07-22 19:14:00 Test Item Value Reference Range Interpretation Comments MCV (test code = MCV) 84.8 80.0-100.0 [place] 079632-07-22 19:14:00 Test Item Value Reference Range Interpretation Comments MCH (test code = MCH) 28.9 pg 27.0-33.0 [place] 079632-07-22 19:14:00 Test Item Value Reference Range Interpretation Comments MCHC (test code = MCHC) 34.1 32.0-36.0 [facility] ArlingtonUcxwsazOZZDFCPREU1345-89-69 19:14:00 Test Item Value Reference Range Interpretation Comments RDW (test code = RDW) 15.6 11.0-15.0 [facility] ArlingtonIwvoktyGXVYGSAFTM1480-10-99 19:14:00 Test Item Value Reference Range Interpretation Comments Platelet (test code = Platelet) 265 140-400 [facility] ArlingtonZdwvgipAHEBTMZKSD8522-49-76 19:14:00 Test Item Value Reference Range Interpretation Comments MPV (test code = MPV) 9.9 7.5-12.5 [facility] ArlingtonNodpizoNJLJKVTVWI6013-61-75 19:14:00 Test Item Value Reference Range Interpretation Comments Neutrophils # (test code = Neutrophils 6907 8901-2865 #) [facility] ArlingtonWbogepcWQXQUPGUNT5307-19-22 19:14:00 Test Item Value Reference Range Interpretation Comments Lymphocytes # (test code = Lymphocytes 8902 380-7215 #) [facility] ArlingtonZcborzvAQMIAOFVUQ1318-95-97 19:14:00 Test Item Value Reference Range Interpretation Comments Monocytes # (test code = Monocytes #) 950 200-950 [facility] ArlingtonZpnrsxpLOBHMVODTI2939-46-79 19:14:00 Test Item Value Reference Range Interpretation Comments Eosinophils # (test code = Eosinophils 29 15-500 #) [facility] ArlingtonFlgtceaQCQQKFRWYP9305-38-59 19:14:00 Test Item Value Reference Range Interpretation Comments Basophils # (test code 29 See_Comment [Aut omated message] The = Basophils #) system which generated this result tra nsmitted reference range : <=200. The reference r tomasa was not used to int erpret this result as normal/abnormal . [facility] ArlingtonVqaljosCPTHJJJQIA9940-73-05 19:14:00 Test Item Value Reference Range Interpretation Comments Segs (test code = Segs) 72.7 [facility] ArlingtonIazwwrfCDNZTJZUNU1975-06-59 19:14:00 Test Item Value Reference Range Interpretation Comments Lymphocytes (test code = Lymphocytes) 16.7 [place] 079632-07-22 19:14:00 Test Item Value Reference Range Interpretation Comments Monocytes (test code = Monocytes) 10.0 [facility] ArlingtonPrekcxjJIEYGKZPTK0135-15-46 19:14:00 Test Item Value Reference Range Interpretation Comments Eosinophils (test code = Eosinophils) 0.3 [facility]LjcfaggFXCEHQYHRU9852-13-44 19:14:00 Test Item Value Reference Range Interpretation Comments Basophils (test code = Basophils) 0.3 [facility]NovlkhiCAYXAPXQRN1057-64-02 19:14:00 Test Item Value Reference Range Interpretation Comments Diff Comment (test code = Diff SEE COMMENT Comment) [facility] [id number] 14:48:00Unlisted Reason for Exam - Click Yes and Enter Reason Below->YesUnlisted Reason for Exam->HRCTscan of the chest WO contrast. LTFU study, [id number]. [facility] ROBINJAIMESUE REDMOND : 1945 Sex: MFINAL REPORT EXAM: CT Chest WITHOUT contrastINDICATION: Shortness of breathHRCT scan of the chest WO contrast. LTFU study, [id number]. COMPARISON: None TECHNIQUE:Chest was scanned utilizing a multidetector helical scanner from the lung apex through the level of the adrenal glands without administration of IV contrast. Absence of intravenous contrast decreases sensitivity for detectionof lymphadenopathy and vascular pathology. Inspiration and expiration [...] slice beam hardening artifact. Signed: Karine Milner MDReport Verified Date/Time: 09/06/2020 14:48:56 Reading Location: [facility] Room [address] [place] [address] POCT- GLUCOSE [id number] 14:56:00 Test Item Value Reference Range Interpretation Comments POC-GLUCOSE METER 108 mg/dL 70-110 : TESTED A T [facility] 6720 (BEAKER) (test code = [facility], 1538) 59904: Cath Lab Radiology Technician/Techni lavinia ID = [id number] for PAULIE CONNOR POCT-GLUCOSE [id number] 14:07:00 Test Item Value Reference Range Interpretation Comments POC-GLUCOSE METER 119 mg/dL 70-110 H : TESTED A T [facility] 6720 (BEAKER) (test code = [facility], 1538) 23752: Cath Lab Radiology Technician/Techni lavinia ID = [id number] for PAULIE CONNOR BASIC METABOLIC [id number] 12:51:00 Test Item Value Reference Range Interpretation [...] S NOT APPLICABLE FOR DIALYSIS PATIEN TS. Cath Lab Radiology Technician ID - EDASICBC W/PLT COUNT & AUTO LDUSWNWJBWTF0945-48-01 12:33:00 Test Item Value Reference Range Interpretation [...] PERCENT (BEAKER) (test code = 2801) SARS-COV2/RT-PCR ([facility])2019-10-05 23:09:00 Test Item Value Reference Range Interpretation Comments SARS-COV2/RT-PCR (test code = Negative Not Detected, Negative [id number]) SARS-COV-2 PERFORMING LAB CPL (test code = 2227468) POCT-GLUCOSE [id number] 09:16:00 Test Item Value Reference Range Interpretation Comments POC-GLUCOSE METER 94 mg/dL 70-110 : TESTED A T [facility] 6720 (BEAKER) (test code = [facility] [place], 1538) 97956: Cath Lab Radiology Technician/Techni lavinia ID = [id number] for BUTCH CASTRO BASIC METABOLIC [id number] 05:39:00 Test Item Value Reference Range Interpretation [...] S NOT APPLICABLE FOR DIALYSIS PATIEN TS. Cath Lab Radiology Technician ID - PIAYA LCBC W/PLT COUNT & AUTO [id number] 04:18:00 Test Item Value Reference Range Interpretation [...] PERCENT (BEAKER) (test code = 2801) POCT-GLUCOSE [id number] 21:48:00 Test Item Value Reference Range Interpretation Comments POC-GLUCOSE METER 114 mg/dL 70-110 H : TESTED Levi Galvez [facility] 6720 (BEAKER) (test code = [facility] [place], 1538) 32032: Cath Lab Radiology Technician/Techni lavinia ID = [id number] for MARIA D MONREAL POCT-GLUCOSE [id number] 17:44:00 Test Item Value Reference Range Interpretation Comments POC-GLUCOSE METER 112 mg/dL 70-110 H : TESTED A T [facility] 6720 (GUERO) (test code [facility], = 1538) 71553: Cath Lab Radiology Technician/Techni lavinia ID = [id number] for GORDY VELA MA (Cont ract) [id number] 13:20:00 Test Item Value Reference Range Interpretation Comments FERRITIN (GUERO) (test code = 354.57 ng/mL 5.00-275.00 H 361) Cath Lab Radiology Technician ID - NTPPOCT-GLUCOSE [id number] 12:02:00 Test Item Value Reference Range Interpretation Comments POC-GLUCOSE METER 136 mg/dL 70-110 H : TESTED A T [facility] 6720 (GUERO) (test code [facility], = 1538) 92010: Cath Lab Radiology Technician/Techni lavinia ID = [id number] for GORDY VELA MA (Cont ract) POCT-GLUCOSE [id number] 09:59:00 Test Item Value Reference Range Interpretation Comments POC-GLUCOSE METER 152 mg/dL 70-110 H : Notified RN/MD: TESTED (GUERO) (test code AT [facility] = 1538) [facility], 770 30: Cath Lab Radiology Technician/Techni lavinia ID = [id number] for GORDY VELA MA (Cont ract) POCT-GLUCOSE [id number] 09:49:00 Test Item Value Reference Range Interpretation Comments POC-GLUCOSE METER 142 mg/dL 70-110 H : TESTED A T [facility] 6720 ([facility]) (test code = [facility], 153) 63873: Cath Lab Radiology Technician/Techni lavinia ID = [id number] for MARIA D MONREAL POCT-GLUCOSE [id number] 09:42:00 Test Item Value Reference Range Interpretation Comments POC-GLUCOSE METER 147 mg/dL 70-110 H : TESTED A T [facility] 6720 ([facility]) (test code = [facility], 153) 95825: Cath Lab Radiology Technician/Techni lavinia ID = [id number] for MARAI LUZ FELIPE LAW POCT-GLUCOSE [id number] 09:34:00 Test Item Value Reference Range Interpretation Comments POC-GLUCOSE METER 133 mg/dL 70-110 H : TESTED A T [facility] 6720 (BEAKER) (test code = [facility] [place], 1538) 80304: Cath Lab Radiology Technician/Techni lavinia ID = [id number] for MARIA LUZ ZEEA, LAW POCT-GLUCOSE [id number] 09:33:00 Test Item Value Reference Range Interpretation Comments POC-GLUCOSE METER 106 mg/dL 70-110 : TESTED A Leonor [facility] 6720 (BEAKER) (test code = [facility] [place] [facility], 1538) 38397: Cath Lab Radiology Technician/Techni lavinia ID = [id number] for QU FELIPE, LAW [id number] 05:47:00 Test Item Value Reference Range Interpretation Comments PHOSPHORUS (BEAKER) (test code = 4.1 mg/dL 2.3-4.7 604) Cath Lab Radiology Technician ID - BRI [id number] 05:47:00 Test Item Value Reference Range Interpretation Comments MAGNESIUM (BEAKER) (test code = 2.0 mg/dL 1.6-2.6 627) Cath Lab Radiology Technician ID - BRI MCOMPREHENSIVE METABOLIC [id number] 05:47:00 Test Item Value Reference Range Interpretation [...] S NOT APPLICABLE FOR DIALYSIS PATIEN TS. Cath Lab Radiology Technician ID - BRI MPT/[id number] 05:44:00 Test Item Value Reference Range Interpretation [...] 2.5-3.5 for patients wiht mechanical heart valves.CALCIUM, [id number] 05:18:00 Test Item Value Reference Range Interpretation Comments CALCIUM IONIZED (BEAKER) (test 1.14 mmol/L 1.12-1.27 code = 698) PH, BLOOD (BEAKER) (test code = 7.43 1810) CBC W/PLT COUNT & AUTO [id number] 05:17:00 Test Item Value Reference Range Interpretation [...] 0-1 PERCENT (BEAKER) (test code = 2801) [id number] 17:53:00 Test Item Value Reference Range Interpretation Comments MAGNESIUM (BEAKER) 2.1 mg/dL 1.6-2.6 Specimen slightly (test code = 627) hemolyzed Cath Lab Radiology Technician ID - NTPBASIC METABOLIC [id number] 17:53:00 Test Item Value Reference Range Interpretation [...] S NOT APPLICABLE FOR DIALYSIS PATIEN TS. Cath Lab Radiology Technician ID - [id number] 05:37:00 Test Item Value Reference Range Interpretation Comments PHOSPHORUS (BEAKER) (test code = 4.2 mg/dL 2.3-4.7 604) Cath Lab Radiology Technician ID - [id number] 05:37:00 Test Item Value Reference Range Interpretation Comments MAGNESIUM (BEAKER) (test code = 2.2 mg/dL 1.6-2.6 627) Cath Lab Radiology Technician ID - DBCOMPREHENSIVE METABOLIC [id number] 05:37:00 Test Item Value Reference Range Interpretation [...] S NOT APPLICABLE FOR DIALYSIS PATIEN TS. Cath Lab Radiology Technician ID - DBLACTATE DEHYDROGENASE (LDH)2019-10-03 05:37:00 Test Item Value Reference Range Interpretation Comments LACTATE DEHYDROGENASE (BEAKER) (test 346 U/L 125-220 H code = 635) Cath Lab Radiology Technician ID - DBPT/[id number] 05:36:00 Test Item Value Reference Range Interpretation [...] 2.5-3.5 for patients wiht mechanical heart valves.CALCIUM, [id number] 05:20:00 Test Item Value Reference Range Interpretation Comments CALCIUM IONIZED (BEAKER) (test 1.00 mmol/L 1.12-1.27 L code = 698) PH, BLOOD (BEAKER) (test code = 7.49 1810) CBC W/PLT COUNT & AUTO [id number] 05:11:00 Test Item Value Reference Range Interpretation [...] PERCENT (BEAKER) (test code = 2801) POCT-GLUCOSE [id number] 00:05:00 Test Item Value Reference Range Interpretation Comments POC-GLUCOSE METER 129 mg/dL 70-110 H : TESTED A T [facility] 6720 (BEAKER) (test code = [facility], 1538) 30211: Cath Lab Radiology Technician/Techni lavinia ID = [id number] for BI YO, HERIBERTO POCT-GLUCOSE [id number] 22:49:00 Test Item Value Reference Range Interpretation Comments POC-GLUCOSE METER 58 mg/dL 70-110 L : TESTED A T [facility] 6720 (BEAKER) (test code = [facility], 1538) 70947: Cath Lab Radiology Technician/Techni lavinia ID = [id number] for BIYO , HERIBERTO [id number] 16:58:00 Test Item Value Reference Range Interpretation Comments MAGNESIUM (BEAKER) 2.3 mg/dL 1.6-2.6 Specimen moderately (test code = 627) hemolyzed Cath Lab Radiology Technician ID - DBBASIC METABOLIC [id number] 16:58:00 Test Item Value Reference Range Interpretation [...] S NOT APPLICABLE FOR DIALYSIS PATIEN TS. Cath Lab Radiology Technician ID - [id number] 12:52:00 Test Item Value Reference Range Interpretation Comments FERRITIN (BEAKER) (test code = 392.65 ng/mL 5.00-275.00 H 361) Cath Lab Radiology Technician ID - HANSA [id number] 12:38:00 Test Item Value Reference Range Interpretation Comments PROCALCITONIN (BEAKER) (test code = < ng/mL <0.05 3036) SEPSIS RISK (ng/mL)Low: 0.05-0.50Intermediate: 0.51-2.00High: >=2.01C- REACTIVE [id number] 12:29:00 Test Item Value Reference Range Interpretation Comments C-REACTIVE PROTEIN (BEAKER) (test 0.46 mg/dL 0.00-0.50 code = 676) Cath Lab Radiology Technician ID - HANSA CPOCT-GLUCOSE [id number] 12:05:00 Test Item Value Reference Range Interpretation Comments POC-GLUCOSE METER 147 mg/dL 70-110 H : TESTED A T [facility] 6720 ([employer]Cloud[employer]ees) (test code = [facility], 1538) 91154: Cath Lab Radiology Technician/Techni lavinia ID = [id number] for Donal Vides (contract) POCT-GLUCOSE [id number] 05:48:00 Test Item Value Reference Range Interpretation Comments POC-GLUCOSE METER 77 mg/dL 70-110 : TESTED A T [facility] 6720 (BEAKER) (test code = [facility], 1538) 99618: Cath Lab Radiology Technician/Techni lavinia ID = [id number] for Victoria Sharif [id number] 04:16:00 Test Item Value Reference Range Interpretation [...] 2.5-3.5 for patients wiht mechanical heart valves.PROTHROMBIN [id number] 04:15:00 Test Item Value Reference Range Interpretation [...] S NOT APPLICABLE FOR DIALYSIS PATIEN TS. Cath Lab Radiology Technician ID - [id number] 04:06:00 Test Item Value Reference Range Interpretation Comments PHOSPHORUS (BEAKER) (test code = 4.5 mg/dL 2.3-4.7 604) Cath Lab Radiology Technician ID - [id number] 04:06:00 Test Item Value Reference Range Interpretation Comments MAGNESIUM (BEAKER) (test code = 2.0 mg/dL 1.6-2.6 627) Cath Lab Radiology Technician ID - LACBC W/PLT COUNT & AUTO [id number] 03:57:00 Test Item Value Reference Range Interpretation [...] PERCENT (BEAKER) (test code = 2801) CALCIUM, [id number] 03:41:00 Test Item Value Reference Range Interpretation Comments CALCIUM IONIZED (BEAKER) (test 0.97 mmol/L 1.12-1.27 L code = 698) PH, BLOOD (BEAKER) (test code = 7.40 1810) POCT-GLUCOSE [id number] 01:05:00 Test Item Value Reference Range Interpretation Comments POC-GLUCOSE METER 89 mg/dL 70-110 : TESTED A T [facility] 6720 (BEAKER) (test code = [facility], 1538) 94478: Cath Lab Radiology Technician/Techni lavinia ID = [id number] for Li, Victoria POCT-GLUCOSE [id number] 00:13:00 Test Item Value Reference Range Interpretation Comments POC-GLUCOSE METER 67 mg/dL 70-110 L : TESTED A T [facility] 6720 (BEAKER) (test code = [facility], 1538) 74269: Cath Lab Radiology Technician/Techni laviina ID = [id number] for Li, Victoria POCT-GLUCOSE [id number] 20:46:00 Test Item Value Reference Range Interpretation Comments POC-GLUCOSE METER 100 mg/dL 70-110 : TESTED A T [facility] 6720 (BEAKER) (test code = [facility], 1538) 80664: Cath Lab Radiology Technician/Techni lavinia ID = [id number] for Victoria Sharif [id number] 17:20:00 Test Item Value Reference Range Interpretation Comments MAGNESIUM (BEAKER) (test code = 2.3 mg/dL 1.6-2.6 627) Cath Lab Radiology Technician ID - BSBASIC METABOLIC [id number] 17:20:00 Test Item Value Reference Range Interpretation [...] S NOT APPLICABLE FOR DIALYSIS PATIEN TS. Cath Lab Radiology Technician ID - BSPOCT-GLUCOSE [id number] 16:48:00 Test Item Value Reference Range Interpretation Comments POC-GLUCOSE METER 96 mg/dL 70-110 : TESTED A T [facility] 6720 (BEAKER) (test code = [facility], 1538) 04231: Cath Lab Radiology Technician/Techni lavinia ID = [id number] for NAHEED WIN (contra ct) POCT-GLUCOSE [id number] 11:37:00 Test Item Value Reference Range Interpretation Comments POC-GLUCOSE METER 190 mg/dL 70-110 H : TESTED A T [facility] 6720 (BEAKER) (test code = [facility] [place], 1538) 07806: Cath Lab Radiology Technician/Techni lavinia ID = [id number] for NAHEED SHANKS (contra ct) POCT-GLUCOSE [id number] 06:05:00 Test Item Value Reference Range Interpretation Comments POC-GLUCOSE METER 167 mg/dL 70-110 H : TESTED A T [facility]20 (BEAKER) (test code = [facility] [place], 1538) 30406: Cath Lab Radiology Technician/Techni lavinia ID = [id number] for JUSTICE BYNUM [id number] 04:37:00 Test Item Value Reference Range Interpretation Comments PHOSPHORUS (BEAKER) (test code = 4.6 mg/dL 2.3-4.7 604) Cath Lab Radiology Technician ID - NADIA [id number] 04:37:00 Test Item Value Reference Range Interpretation Comments MAGNESIUM (BEAKER) (test code = 2.2 mg/dL 1.6-2.6 627) Cath Lab Radiology Technician ID - NADIA WCOMPREHENSIVE METABOLIC [id number] 04:37:00 Test Item Value Reference Range Interpretation [...] S NOT APPLICABLE FOR DIALYSIS PATIEN TS. Cath Lab Radiology Technician ID - NADIA WLACTATE DEHYDROGENASE (LDH)2019-10-01 04:37:00 Test Item Value Reference Range Interpretation Comments LACTATE DEHYDROGENASE (BEAKER) (test 673 U/L 125-220 H code = 635) Cath Lab Radiology Technician ID - NADIA [id number] 04:24:00 Test Item Value Reference Range Interpretation Comments PARTIAL THROMBOPLASTIN TIME 61.9 seconds 22.5-36.0 H (BEAKER) (test code = 760) 6 hours after starting heparin infusion and as indicated per sliding scaleCBC W/PLT COUNT & AUTO [id number] 04:08:00 Test Item Value Reference Range Interpretation [...] (BEAKER) (test code = 2801) BLOOD GAS, [id number] 04:05:00 Test Item Value Reference Range Interpretation [...] (test code = 1819) 60.0 % CALCIUM, [id number] 04:05:00 Test Item Value Reference Range Interpretation Comments CALCIUM IONIZED (BEAKER) (test 1.14 mmol/L 1.12-1.27 code = 698) PH, BLOOD (BEAKER) (test code = 7.45 1810) [id number] 00:28:00 Test Item Value Reference Range Interpretation Comments POTASSIUM (BEAKER) (test code = 3.8 meq/L 3.5-5.1 379) Cath Lab Radiology Technician ID - PIAYA LPOCT-GLUCOSE [id number] 00:15:00 Test Item Value Reference Range Interpretation Comments POC-GLUCOSE METER 126 mg/dL 70-110 H : TESTED A T [facility] 6720 (BEAKER) (test code = [facility] [place], 1538) 40302: Cath Lab Radiology Technician/Techni lavinia ID = [id number] for JUSTICE BYNUM BLOOD GAS, [id number] 21:09:00 Test Item Value Reference Range Interpretation [...] (BEAKER) (test code = 1819) 60.0 % [id number] 21:05:00 Test Item Value Reference Range Interpretation Comments MAGNESIUM (BEAKER) (test code = 2.3 mg/dL 1.6-2.6 627) Cath Lab Radiology Technician ID - DBBASIC METABOLIC [id number] 21:05:00 Test Item Value Reference Range Interpretation [...] S NOT APPLICABLE FOR DIALYSIS PATIEN TS. Cath Lab Radiology Technician ID - DBPOCT-GLUCOSE [id number] 18:20:00 Test Item Value Reference Range Interpretation Comments POC-GLUCOSE METER 171 mg/dL 70-110 H : TESTED A T [facility] (BEAKER) (test code = [facility] [place], 1538) 53417: Cath Lab Radiology Technician/Techni lavinia ID = [id number] for LEANN GARRETTNAHEED Wynn (contra nj) BASIC METABOLIC [id number] 16:52:00 Test Item Value Reference Range Interpretation [...] S NOT APPLICABLE FOR DIALYSIS PATIEN TS. Cath Lab Radiology Technician ID - DBBLOOD GAS, [id number] 16:30:00 Test Item Value Reference Range Interpretation [...] (test code = 1819) 50.0 % CALCIUM, [id number] 16:30:00 Test Item Value Reference Range Interpretation Comments CALCIUM IONIZED (BEAKER) (test 1.11 mmol/L 1.12-1.27 L code = 698) PH, BLOOD (BEAKER) (test code = 7.48 1810) POCT-GLUCOSE [id number] 13:29:00 Test Item Value Reference Range Interpretation Comments POC-GLUCOSE METER 174 mg/dL 70-110 H : TESTED A T [facility] 6720 (BEAKER) (test code = [facility], 1538) 47237: Cath Lab Radiology Technician/Techni lavinia ID = [id number] for JOI KELLY BLOOD GAS, [id number] 12:08:00 Test Item Value Reference Range Interpretation [...] (BEAKER) (test code = 1819) 50.0 % [id number] 11:04:00 Test Item Value Reference Range Interpretation Comments FERRITIN (BEAKER) (test code = 444.49 ng/mL 5.00-275.00 H 361) Cath Lab Radiology Technician ID - HANSA [id number] 09:57:00 Test Item Value Reference Range Interpretation Comments PHOSPHORUS (BEAKER) (test code = 4.1 mg/dL 2.3-4.7 604) Cath Lab Radiology Technician ID - BRI [id number] 09:57:00 Test Item Value Reference Range Interpretation Comments MAGNESIUM (BEAKER) (test code = 2.2 mg/dL 1.6-2.6 627) Cath Lab Radiology Technician ID - BRI MBASIC METABOLIC [id number] 09:57:00 Test Item Value Reference Range Interpretation [...] S NOT APPLICABLE FOR DIALYSIS PATIEN TS. Cath Lab Radiology Technician ID - BRI [id number] 09:49:00 Test Item Value Reference Range Interpretation [...] exclusion of thrombosis is within 95-100% range. [id number] 09:48:00 Test Item Value Reference Range Interpretation [...] 2.5-3.5 for patients wiht mechanical heart valves.SARS-COV2/RT-PCR ([facility]) 2019-09-30 06:25:00 Test Item Value Reference Range Interpretation Comments SARS-COV2/RT-PCR (test code = Positive Not Detected, Negative A A 5911919) SARS-COV-2 PERFORMING LAB CPL (test code = 9783808) [id number] 05:34:00 Test Item Value Reference Range Interpretation [...] 2.5-3.5 for patients wiht mechanical heart valves.POCT-GLUCOSE [id number] 05:26:00 Test Item Value Reference Range Interpretation Comments POC-GLUCOSE METER 184 mg/dL 70-110 H : TESTED A T [facility] 6720 (BEAKER) (test code = [facility] [place], 1538) 38999: Cath Lab Radiology Technician/Techni lavinia ID = [id number] for AT JEFFERSON ONTIVEROS [id number] 04:14:00 Test Item Value Reference Range Interpretation Comments PARTIAL THROMBOPLASTIN TIME 73.7 seconds 22.5-36.0 H (BEAKER) (test code = 760) 6 hours after starting heparin infusion and as indicated per sliding scale CALCIUM, [id number] 04:13:00 Test Item Value Reference Range Interpretation Comments CALCIUM IONIZED (BEAKER) (test 1.09 mmol/L 1.12-1.27 L code = 698) PH, BLOOD (BEAKER) (test code = 7.44 1810) BLOOD GAS, [id number] 04:13:00 Test Item Value Reference Range Interpretation [...] (BEAKER) (test code = 1819) 35.0 % [id number] 03:54:00 Test Item Value Reference Range Interpretation Comments PHOSPHORUS (BEAKER) (test code = 4.3 mg/dL 2.3-4.7 604) Cath Lab Radiology Technician ID - BRI [id number] 03:54:00 Test Item Value Reference Range Interpretation Comments MAGNESIUM (BEAKER) (test code = 2.1 mg/dL 1.6-2.6 627) Cath Lab Radiology Technician ID - BRI MCOMPREHENSIVE METABOLIC [id number] 03:54:00 Test Item Value Reference Range Interpretation [...] S NOT APPLICABLE FOR DIALYSIS PATIEN TS. Cath Lab Radiology Technician ID - BRI MCBC W/PLT COUNT & AUTO [id number] 03:35:00 Test Item Value Reference Range Interpretation [...] H PERCENT (BEAKER) (test code = 2801) [id number] 00:07:00 Test Item Value Reference Range Interpretation [...] is 2.5-3.5 for patients wiht mechanical heart valves.[id number] 23:55:00 Test Item Value Reference Range Interpretation Comments POTASSIUM (BEAKER) (test code = 3.3 meq/L 3.5-5.1 L 379) Cath Lab Radiology Technician ID - BSPOCT-GLUCOSE [id number] 23:47:00 Test Item Value Reference Range Interpretation Comments POC-GLUCOSE METER 191 mg/dL 70-110 H : TESTED A T [facility] 6720 (BEAKER) (test code = [facility] [place], 1538) 04789: Cath Lab Radiology Technician/Techni lavinia ID = [id number] for Li , Victoria BLOOD GAS, [id number] 21:53:00 Test Item Value Reference Range Interpretation [...] (test code = 1819) 35.0 % TROPONIN [id number] 17:55:00 Test Item Value Reference Range Interpretation [...] failure, acidosis, acute neurological disease, and persistent tachyarrhythmia.Cath Lab Radiology Technician ID - BSBASIC METABOLIC PANEL 2019-09-29 17:47:00 [...] S NOT APPLICABLE FOR DIALYSIS PATIEN TS. Cath Lab Radiology Technician ID - [id number] 17:41:00 Test Item Value Reference Range Interpretation [...] 2.5-3.5 for patients wiht mechanical heart valves.POCT-GLUCOSE [id number] 17:27:00 Test Item Value Reference Range Interpretation Comments POC-GLUCOSE METER 226 mg/dL 70-110 H : TESTED A T [facility]20 (BEAKER) (test code = [facility] [place], 1538) 17979: Cath Lab Radiology Technician/Techni lavinia ID = [id number] for MIRNA ORTIZ BLOOD [id number] 15:00:00 Test Item Value Reference Range Interpretation Comments CULTURE (BEAKER) (test No growth in 5 days code = 1095) BLOOD [id number] 15:00:00 Test Item Value Reference Range Interpretation Comments CULTURE (BEAKER) (test No growth in 5 days code = 1095) RAD, CHEST, 1 VIEW, NON [id number] 13:42:00Reason for exam:- >COVACTAShould this be performed at the bedside?->YesFINAL REPORT RAD, CHEST, 1 VIEW, NON DEPT INDICATION: COVACTA COMPARISON: Prior day's exam FINDINGS: Portable frontal view of the chest. IMPRESSION: Support Lines: Stable. Lungs and pleura: Unchanged airspace and pleural opacities. No pneumothorax.Heart and mediastinum: Stable contours. Stable surgical changes.Additional findings: None. Signed: Joi Pinedaeport Verified Da te/Time: 09/29/2019 13:42:34 Reading Location: [facility] Radiology Reading Room [id number] 13:41:00 Test Item Value Reference Range Interpretation Comments FERRITIN (BEAKER) (test code = 480.68 ng/mL 5.00-275.00 H 361) Cath Lab Radiology Technician ID - HANSA CURIC [id number] 13:29:00 Test Item Value Reference Range Interpretation Comments URIC ACID (BEAKER) (test code = 2.7 mg/dL 2.6-7.2 773) Cath Lab Radiology Technician ID - HANSA [id number] 12:08:00 Test Item Value Reference Range Interpretation [...] exclusion of thrombosis is within 95-100% range. PT/[id number] 11:59:00 Test Item Value Reference Range Interpretation [...] 2.5-3.5 for patients wiht mechanical heart valves.POCT-GLUCOSE [id number] 11:47:00 Test Item Value Reference Range Interpretation Comments POC-GLUCOSE METER 188 mg/dL 70-110 H : TESTED A T [facility]20 (BEAKER) (test code = [facility] [place] [facility], 1538) 88715: Cath Lab Radiology Technician/Techni lavinia ID = [id number] for CO RTEZ, FIORELLA BASIC METABOLIC [id number] 09:27:00 Test Item Value Reference Range Interpretation [...] S NOT APPLICABLE FOR DIALYSIS PATIEN TS. Cath Lab Radiology Technician ID - HANSA [id number] 05:49:00 Test Item Value Reference Range Interpretation Comments PARTIAL THROMBOPLASTIN TIME 45.7 seconds 22.5-36.0 H (BEAKER) (test code = 760) 6 hours after starting heparin infusion and as indicated per sliding scale COMPREHENSIVE METABOLIC [id number] 05:29:00 Test Item Value Reference Range Interpretation [...] S NOT APPLICABLE FOR DIALYSIS PATIEN TS. Cath Lab Radiology Technician ID - BRI [id number] 05:28:00 Test Item Value Reference Range Interpretation Comments PHOSPHORUS (BEAKER) (test code = 4.0 mg/dL 2.3-4.7 604) Cath Lab Radiology Technician ID - BRI [id number] 05:28:00 Test Item Value Reference Range Interpretation Comments MAGNESIUM (BEAKER) (test code = 2.1 mg/dL 1.6-2.6 627) Cath Lab Radiology Technician ID - BRI MLACTATE DEHYDROGENASE (LDH)2019-09-29 05:28:00 Test Item Value Reference Range Interpretation Comments LACTATE DEHYDROGENASE (BEAKER) (test 293 U/L 125-220 H code = 635) Cath Lab Radiology Technician ID - BRI MCBC W/PLT COUNT & AUTO [id number] 05:08:00 Test Item Value Reference Range Interpretation [...] PERCENT (BEAKER) (test code = 2801) CALCIUM, [id number] 05:07:00 Test Item Value Reference Range Interpretation Comments CALCIUM IONIZED (BEAKER) (test 1.13 mmol/L 1.12-1.27 code = 698) PH, BLOOD (BEAKER) (test code = 7.43 1810) BLOOD GAS, [id number] 05:06:00 Test Item Value Reference Range Interpretation [...] (test code = 1819) 35.0 % POCT-GLUCOSE [id number] 04:54:00 Test Item Value Reference Range Interpretation Comments POC-GLUCOSE METER 195 mg/dL 70-110 H : TESTED A T [facility] 6720 (BEAKER) (test code = [facility] [place], 1538) 75246: Cath Lab Radiology Technician/Techni lavinia ID = [id number] for NAYEYL SCHAFFER POCT-GLUCOSE [id number] 00:04:00 Test Item Value Reference Range Interpretation Comments POC-GLUCOSE METER 179 mg/dL 70-110 H : TESTED A T [facility] 6720 (BEAKER) (test code = [facility], 1538) 06756: Cath Lab Radiology Technician/Techni lavinia ID = [id number] for BOBBI GUARDADO POCT-GLUCOSE [id number] 18:12:00 Test Item Value Reference Range Interpretation Comments POC-GLUCOSE METER 163 mg/dL 70-110 H : TESTED A T [facility] 6720 (BEAKER) (test code = [facility], 1538) 60831: Cath Lab Radiology Technician/Techni lavinia ID = [id number] for VAN BANGURA BASIC METABOLIC [id number] 18:12:00 Test Item Value Reference Range Interpretation [...] S NOT APPLICABLE FOR DIALYSIS PATIEN TS. Cath Lab Radiology Technician ID - [id number] 18:06:00 Test Item Value Reference Range Interpretation Comments PROTIME (BEAKER) (test code = 14.9 seconds 11.9-14.2 H 759) INR (BEAKER) (test code = 370) 1.2 <=5.9 PARTIAL THROMBOPLASTIN TIME 74.6 seconds 22.5-36.0 H (URBANARAAKER) (test code = 760) Effective 10/21/2018: PT Reference Range ChangeNew: 11.9-14.2 Previous: 11.7- 14.7RECOMMENDED COUMADIN/WARFARIN INR THERAPY RANGESSTANDARD DOSE: 2.0-3.0 Includes: PROPHYLAXIS for venous thrombosis, systemic embolization; TREATMENT for venous thrombosis and/or pulmonary embolus.HIGH RISK: Target INR is 2.5-3.5 for patients wiht mechanical heart valves.POCT-GLUCOSE [id number] 11:57:00 Test Item Value Reference Range Interpretation Comments POC-GLUCOSE METER 206 mg/dL 70-110 H : TESTED A T [facility] 6720 (Car Throttle) (test code = [facility] [place], 1538) 82194: Cath Lab Radiology Technician/Techni lavinia ID = [id number] for JOI KELLY [id number] 11:40:00 Test Item Value Reference Range Interpretation Comments PROCALCITONIN (Car [place]le) (test code = < ng/mL <0.05 3036) SEPSIS RISK (ng/mL)Low: 0.05-0.50Intermediate: 0.51-2.00High: >=2.01FERRITIN 2019-09-28 11:34:00 Test Item Value Reference Range Interpretation Comments FERRITIN (Car Th[place]ttle) (test code = 501.97 ng/mL 5.00-275.00 H 361) Cath Lab Radiology Technician ID - NTPC-REACTIVE [id number] 11:11:00 Test Item Value Reference Range Interpretation Comments C-REACTIVE PROTEIN (Car Th[place]ttle) (test 0.17 mg/dL 0.00-0.50 code = 676) Cath Lab Radiology Technician ID - [id number] 11:05:00 Test Item Value Reference Range Interpretation Comments D-DIMER QUANTITATIVE (URBANARAAKER) 13.31 MG/L FEU <0.50 H (test code [...] exclusion of thrombosis is within 95-100% range. [id number] 10:57:00 Test Item Value Reference Range Interpretation [...] is 2.5-3.5 for patients wiht mechanical heart valves.[id number] 05:14:00 Test Item Value Reference Range Interpretation Comments PHOSPHORUS (BEAKER) (test code = 3.9 mg/dL 2.3-4.7 604) Cath Lab Radiology Technician ID - PIAYA [id number] 05:14:00 Test Item Value Reference Range Interpretation Comments MAGNESIUM (BEAKER) (test code = 2.1 mg/dL 1.6-2.6 627) Cath Lab Radiology Technician ID - PIAYA LCOMPREHENSIVE METABOLIC [id number] 05:14:00 Test Item Value Reference Range Interpretation [...] S NOT APPLICABLE FOR DIALYSIS PATIEN TS. Cath Lab Radiology Technician ID - PIAYA [id number] 04:59:00 Test Item Value Reference Range Interpretation Comments PARTIAL THROMBOPLASTIN TIME 33.2 seconds 22.5-36.0 (BEAKER) (test code = 760) 6 hours after starting heparin infusion and as indicated per sliding scaleBLOOD GAS, [id number] 04:45:00 Test Item Value Reference Range Interpretation [...] (test code = 1819) 35.0 % CALCIUM, [id number] 04:44:00 Test Item Value Reference Range Interpretation Comments CALCIUM IONIZED (BEAKER) (test 1.13 mmol/L 1.12-1.27 code = 698) PH, BLOOD (BEAKER) (test code = 7.46 1810) CBC W/PLT COUNT & AUTO [id number] 04:37:00 Test Item Value Reference Range Interpretation [...] 0-1 PERCENT (BEAKER) (test code = 2801) [id number] 23:14:00 Test Item Value Reference Range Interpretation [...] 2.5-3.5 for patients wiht mechanical heart valves.POCT-GLUCOSE [id number] 23:06:00 Test Item Value Reference Range Interpretation Comments POC-GLUCOSE METER 144 mg/dL 70-110 H : TESTED A T [facility] 6720 (BEAKER) (test code = [facility], 1538) 75104: Cath Lab Radiology Technician/Techni lavinia ID = [id number] for EZ EBUIKE, CATIA POCT-GLUCOSE [id number] 20:48:00 Test Item Value Reference Range Interpretation Comments POC-GLUCOSE METER 138 mg/dL 70-110 H : TESTED A T [facility] 6720 (BEAKER) (test code = [facility], 1538) 39627: Cath Lab Radiology Technician/Techni lavinia ID = [id number] for EZ EBUIKE, CATIA POCT-GLUCOSE [id number] 17:24:00 Test Item Value Reference Range Interpretation Comments POC-GLUCOSE METER 188 mg/dL 70-110 H : TESTED A T [facility] 6720 (BEAKER) (test code = [facility], 1538) 88375: Cath Lab Radiology Technician/Techni lavinia ID = [id number] for XENIA CORDERO PT/[id number] 17:01:00 Test Item Value Reference Range Interpretation [...] is 2.5-3.5 for patients wiht mechanical heart valves.[id number] 16:56:00 Test Item Value Reference Range Interpretation Comments POTASSIUM (BEAKER) (test code = 4.1 meq/L 3.5-5.1 379) Cath Lab Radiology Technician ID - [id number] 13:12:00 Test Item Value Reference Range Interpretation Comments POTASSIUM (BEAKER) (test code = 3.4 meq/L 3.5-5.1 L 379) Cath Lab Radiology Technician ID - ERIN [id number] 13:12:00 Test Item Value Reference Range Interpretation Comments MAGNESIUM (BEAKER) (test code = 2.2 mg/dL 1.6-2.6 627) Cath Lab Radiology Technician ID - ERIN FPOCT-GLUCOSE [id number] 12:34:00 Test Item Value Reference Range Interpretation Comments POC-GLUCOSE METER 249 mg/dL 70-110 H : TESTED A T [facility] 6720 (BEAKER) (test code [facility], = 1538) 45658: Cath Lab Radiology Technician/Techni lavinia ID = [id number] for Kasia Hendricks CALCIUM, [id number] 05:00:00 Test Item Value Reference Range Interpretation Comments CALCIUM IONIZED (BEAKER) (test 1.08 mmol/L 1.12-1.27 L code = 698) PH, BLOOD (BEAKER) (test code = 7.50 1810) CBC W/PLT COUNT & AUTO [id number] 04:44:00 Test Item Value Reference Range Interpretation [...] H PERCENT (BEAKER) (test code = 2801) [id number] 04:40:00 Test Item Value Reference Range Interpretation Comments PHOSPHORUS (BEAKER) (test code = 3.8 mg/dL 2.3-4.7 604) Cath Lab Radiology Technician ID Osmani DAWKINS [id number] 04:40:00 Test Item Value Reference Range Interpretation Comments MAGNESIUM (BEAKER) (test code = 1.9 mg/dL 1.6-2.6 627) Cath Lab Radiology Technician ID - MARIZA LCOMPREHENSIVE METABOLIC [id number] 04:40:00 Test Item Value Reference Range Interpretation [...] S NOT APPLICABLE FOR DIALYSIS PATIEN TS. Cath Lab Radiology Technician ID - MARIZA LLACTATE DEHYDROGENASE (LDH)2019-09-27 04:40:00 Test Item Value Reference Range Interpretation Comments LACTATE DEHYDROGENASE (BEAKER) (test 341 U/L 125-220 H code = 635) Cath Lab Radiology Technician ID - MARIZA [id number] 04:30:00 Test Item Value Reference Range Interpretation Comments PARTIAL THROMBOPLASTIN TIME 25.8 seconds 22.5-36.0 (BEAKER) (test code = 760) 6 hours after starting heparin infusion and as indicated per sliding scaleBLOOD GAS, [id number] 04:13:00 Test Item Value Reference Range Interpretation [...] (test code = 1819) 40.0 % POCT-GLUCOSE [id number] 23:23:00 Test Item Value Reference Range Interpretation Comments POC-GLUCOSE METER 154 mg/dL 70-110 H : TESTED A T [facility] 6720 (BEAKER) (test code = [facility], 1538) 60685: Cath Lab Radiology Technician/Techni lavinia ID = [id number] for Ram rris, Kim (Contra ct) POCT-GLUCOSE [id number] 17:49:00 Test Item Value Reference Range Interpretation Comments POC-GLUCOSE METER 173 mg/dL 70-110 H : TESTED A T [facility] 6720 (BEAKER) (test code [facility], = 1538) 40005: Cath Lab Radiology Technician/Techni lavinia ID = [id number] for CAST MA, GORDY (Cont ract) [id number] 13:56:00 Test Item Value Reference Range Interpretation Comments POTASSIUM (BEAKER) (test code = 4.0 meq/L 3.5-5.1 379) Cath Lab Radiology Technician ID Osmani AGUIRRE WPOCT-GLUCOSE [id number] 13:28:00 Test Item Value Reference Range Interpretation Comments POC-GLUCOSE METER 245 mg/dL 70-110 H : [facility] (BEAKER) (test code = [place], 1538) [address]: Cath Lab Radiology Technician/Techni lavinia ID = [id number] for SRINIVAS EASTON [id number] 11:17:00 Test Item Value Reference Range Interpretation Comments FERRITIN (BEAKER) (test code = 664.51 ng/mL 5.00-275.00 H 361) Cath Lab Radiology Technician GLORIA AGUIRRE [id number] 11:06:00 Test Item Value Reference Range Interpretation Comments PROCALCITONIN (URBANARAAKER) (test code 0.06 ng/mL <0.05 H = 3036) SEPSIS RISK (ng/mL)Low: 0.05-0.50Intermediate: 0.51-2.00High: >=2.01C- REACTIVE [id number] 10:52:00 Test Item Value Reference Range Interpretation Comments C-REACTIVE PROTEIN (URBANARAAKER) (test 0.30 mg/dL 0.00-0.50 code = 676) Cath Lab Radiology Technician ID Osmani AGUIRRE [id number] 10:52:00 Test Item Value Reference Range Interpretation Comments D-DIMER QUANTITATIVE (URBANARAAKER) 2.52 MG/L FEU <0.50 H (test code [...] exclusion of thrombosis is within 95-100% range. [id number] 10:48:00 Test Item Value Reference Range Interpretation [...] mechanical heart valves.RAD, CHEST, 1 VIEW, NON [id number] 10:04:00Reason for exam:->pneumoniaShould this be performed at [...] No significant change since 09/24/2019. Signed: Christiano MejiaMDReport Verified Date/Time: 09/26/2019 10:04:20 Reading Location: [facility] C013Y CT Body Reading Room SPUTUM CULTURE + GRAM [id number] 08:29:00 Test Item Value Reference Range Interpretation Comments CULTURE (BEAKER) 3+ Normal respiratory (test code = 1095) alyse present GRAM STAIN RESULT 4+ WBCs (BEAKER) (test code = 1123) GRAM STAIN RESULT 0-5 epithelial cells (BEAKER) (test code = 59786) GRAM STAIN RESULT 4+ gram positive cocci (BEAKER) (test code = 00824) POCT-GLUCOSE [id number] 05:33:00 Test Item Value Reference Range Interpretation Comments POC-GLUCOSE METER 221 mg/dL 70-110 H : TESTED A T [facility] 6720 (BEAKER) (test code = [facility] [place], 1538) 38898: Cath Lab Radiology Technician/Techni lavinia ID = [id number] for ELMER BARTON [id number] 04:25:00 Test Item Value Reference Range Interpretation Comments PHOSPHORUS (BEAKER) (test code = 3.5 mg/dL 2.3-4.7 604) Cath Lab Radiology Technician ID - NADIA [id number] 04:25:00 Test Item Value Reference Range Interpretation Comments MAGNESIUM (BEAKER) (test code = 2.0 mg/dL 1.6-2.6 627) Cath Lab Radiology Technician ID - NADIA WCOMPREHENSIVE METABOLIC [id number] 04:25:00 Test Item Value Reference Range Interpretation [...] S NOT APPLICABLE FOR DIALYSIS PATIEN TS. Cath Lab Radiology Technician ID - NADIA WCBC W/PLT COUNT & AUTO [id number] 04:16:00 Test Item Value Reference Range Interpretation [...] H PERCENT (BEAKER) (test code = 2801) [id number] 04:11:00 Test Item Value Reference Range Interpretation Comments PARTIAL THROMBOPLASTIN TIME 81.1 seconds 22.5-36.0 H (BEAKER) (test code = 760) 6 hours after starting heparin infusion and as indicated per sliding scale CALCIUM, [id number] 04:06:00 Test Item Value Reference Range Interpretation Comments CALCIUM IONIZED (BEAKER) (test 1.06 mmol/L 1.12-1.27 L code = 698) PH, BLOOD (BEAKER) (test code = 7.51 1810) BLOOD GAS, [id number] 04:03:00 Test Item Value Reference Range Interpretation [...] (test code = 1819) 70.0 % POCT-GLUCOSE [id number] 00:53:00 Test Item Value Reference Range Interpretation Comments POC-GLUCOSE METER 201 mg/dL 70-110 H : TESTED A T [facility] 6720 (BEAKER) (test code [facility], = 1538) 17715: Cath Lab Radiology Technician/Techni lavinia ID = [id number] for MARLO ATJEWELL VANCOMYCIN LEVEL, [id number] 22:48:00 Test Item Value Reference Range Interpretation Comments VANCOMYCIN TROUGH (BEAKER) (test 3.6 ug/mL 10.0-20.0 L code = 522) Cath Lab Radiology Technician ID - MARIZA [id number] 22:44:00 Test Item Value Reference Range Interpretation Comments POTASSIUM (BEAKER) (test code = 3.9 meq/L 3.5-5.1 379) Cath Lab Radiology Technician ID - MARIZA LBLOOD GAS, [id number] 22:15:00 Test Item Value Reference Range Interpretation [...] (test code = 1819) 70.0 % POCT-GLUCOSE [id number] 17:26:00 Test Item Value Reference Range Interpretation Comments POC-GLUCOSE METER 227 mg/dL 70-110 H : TESTED A T [facility] 6720 (BEAKER) (test code = [place], 1538) 31219: Cath Lab Radiology Technician/Techni lavinia ID = [id number] for Darian Don (Agency) [id number] 16:08:00 Test Item Value Reference Range Interpretation Comments POTASSIUM (BEAKER) (test code = 3.7 meq/L 3.5-5.1 379) Cath Lab Radiology Technician ID Osmani AGUIRRE WBLOOD GAS, [id number] 16:00:00 Test Item Value Reference Range Interpretation [...] (BEAKER) (test code = 1819) 70.0 % [id number] 14:32:00 Test Item Value Reference Range Interpretation Comments FERRITIN (BEAKER) (test code = 775.54 ng/mL 5.00-275.00 H 361) Cath Lab Radiology Technician ID Osmani AGUIRRE [id number] 12:00:00 Test Item Value Reference Range Interpretation [...] 376 U/L 125-220 H code = 635) Cath Lab Radiology Technician ID - TIMOTHY WURIC [id number] 11:29:00 Test Item Value Reference Range Interpretation Comments URIC ACID (BEAKER) (test code = 3.3 mg/dL 2.6-7.2 773) Cath Lab Radiology Technician ID Osmani AGUIRRE WPOCT-GLUCOSE [id number] 11:26:00 Test Item Value Reference Range Interpretation Comments POC-GLUCOSE METER 232 mg/dL 70-110 H : [facility] (BEAKER) (test code = [place], 1538) 29095: Cath Lab Radiology Technician/Techni lavinia ID = [id number] for AG UDELO, WILD [id number] 10:17:00 Test Item Value Reference Range Interpretation Comments POTASSIUM (BEAKER) (test code = 3.6 meq/L 3.5-5.1 379) Cath Lab Radiology Technician ID - TIMOTHY [id number] 10:17:00 Test Item Value Reference Range Interpretation Comments MAGNESIUM (BEAKER) (test code = 2.0 mg/dL 1.6-2.6 627) Cath Lab Radiology Technician ID - TIMOTHY WBLOOD GAS, [id number] 10:05:00 Test Item Value Reference Range Interpretation [...] (test code = 1819) 70.0 % CALCIUM, [id number] 10:05:00 Test Item Value Reference Range Interpretation Comments CALCIUM IONIZED (BEAKER) (test 1.12 mmol/L 1.12-1.27 code = 698) PH, BLOOD (BEAKER) (test code = 7.47 1810) POCT-GLUCOSE [id number] 06:02:00 Test Item Value Reference Range Interpretation Comments POC-GLUCOSE METER 230 mg/dL 70-110 H : TESTED A T [facility] 6720 (BEAKER) (test code = [facility] [place] [facility], 1538) 56133: Cath Lab Radiology Technician/Techni lavinia ID = [id number] for REMI MONTERROSO BLOOD GAS, [id number] 04:51:00 Test Item Value Reference Range Interpretation [...] (test code = 1819) 70.0 % CALCIUM, [id number] 04:51:00 Test Item Value Reference Range Interpretation Comments CALCIUM IONIZED (BEAKER) (test 1.05 mmol/L 1.12-1.27 L code = 698) PH, BLOOD (BEAKER) (test code = 7.47 1810) [id number] 04:46:00 Test Item Value Reference Range Interpretation Comments PARTIAL THROMBOPLASTIN TIME 64.9 seconds 22.5-36.0 H (BEAKER) (test code = 760) 6 hours after starting heparin infusion and as indicated per sliding scale [id number] 04:40:00 Test Item Value Reference Range Interpretation Comments PHOSPHORUS (BEAKER) (test code = 3.8 mg/dL 2.3-4.7 604) Cath Lab Radiology Technician ID - PIAYA [id number] 04:40:00 Test Item Value Reference Range Interpretation Comments MAGNESIUM (BEAKER) (test code = 2.0 mg/dL 1.6-2.6 627) Cath Lab Radiology Technician ID - PIAYA LCOMPREHENSIVE METABOLIC [id number] 04:40:00 Test Item Value Reference Range Interpretation [...] S NOT APPLICABLE FOR DIALYSIS PATIEN TS. Cath Lab Radiology Technician ID - PIAYA LCBC W/PLT COUNT & AUTO [id number] 04:22:00 Test Item Value Reference Range Interpretation [...] (BEAKER) (test code = 2801) BLOOD GAS, [id number] 23:59:00 Test Item Value Reference Range Interpretation [...] (test code = 1819) 70.0 % POCT-GLUCOSE [id number] 23:32:00 Test Item Value Reference Range Interpretation Comments POC-GLUCOSE METER 219 mg/dL 70-110 H : TESTED A T [facility] 6720 (BEAKER) (test code = [place], 1538) 76679: Cath Lab Radiology Technician/Techni lavinia ID = [id number] for ANN MARIE COCHRAN POCT-GLUCOSE [id number] 18:30:00 Test Item Value Reference Range Interpretation Comments POC-GLUCOSE METER 97 mg/dL 70-110 : TESTED A T [facility] 6720 (BEAKER) (test code = [place], 1538) 81593: Cath Lab Radiology Technician/Techni lavinia ID = [id number] for MELISSA NUÑEZ BLOOD GAS, [id number] 16:25:00 Test Item Value Reference Range Interpretation [...] (BEAKER) (test code = 1819) 75.0 % [id number] 15:37:00 Test Item Value Reference Range Interpretation Comments FERRITIN (BEAKER) (test code = 839.22 ng/mL 5.00-275.00 H 361) Cath Lab Radiology Technician ID - ERIN [id number] 11:57:00 Test Item Value Reference Range Interpretation Comments PROCALCITONIN (BEAKER) (test code 0.05 ng/mL <0.05 H = 3036) SEPSIS RISK (ng/mL)Low: 0.05-0.50Intermediate: 0.51-2.00High: >=2.01LACTATE DEHYDROGENASE (LDH)2019-09-24 11:21:00 Test Item Value Reference Range Interpretation Comments LACTATE DEHYDROGENASE (BEAKER) (test 378 U/L 125-220 H code = 635) Cath Lab Radiology Technician ID - BERNIESONC-REACTIVE [id number] 11:21:00 Test Item Value Reference Range Interpretation Comments C-REACTIVE PROTEIN (BEAKER) (test 0.50 mg/dL 0.00-0.50 code = 676) Cath Lab Radiology Technician ID - [id number] 11:18:00 Test Item Value Reference Range Interpretation [...] of thrombosis is within 95-100% range.POCT- GLUCOSE [id number] 11:12:00 Test Item Value Reference Range Interpretation Comments POC-GLUCOSE METER 275 mg/dL 70-110 H : TESTED A T [facility] 6720 (BEAKER) (test code [facility], = 1538) 50403: Cath Lab Radiology Technician/Techni lavinia ID = [id number] for PAT MONROY BLOOD GAS, [id number] 11:03:00 Test Item Value Reference Range Interpretation [...] 1819) 85.0 % URINALYSIS W/ REFLEX URINE [id number] 10:54:00 Test Item Value Reference Range Interpretation [...] /LPF 514) SOURCE(BEAKER) (test code = 2795) Cath Lab Radiology Technician ID - [auto]Cath Lab Radiology Technician ID - hankCBC W/PLT COUNT & AUTO [...] MORPHOLOGY (BEAKER) (test code Normal = 486) [id number] 08:39:00 Test Item Value Reference Range Interpretation [...] mechanical heart valves.RAD, CHEST, 1 VIEW, NON [id number] 08:15:00Reason for exam:->increasing O2 requirement; PNA evaluationShould [...] MDReport Verified Date/Time: 09/24/2019 08:15:15 Reading Location: [facility] Radiology Reading Room TROPONIN [id number] 06:33:00 Test Item Value Reference Range Interpretation [...] failure, acidosis, acute neurological disease, and persistent tachyarrhythmia.Cath Lab Radiology Technician ID - BERNIESONPHOSPHORUS 2019-09-24 06:31:00 Test Item Value Reference Range Interpretation Comments PHOSPHORUS (BEAKER) (test code = 4.2 mg/dL 2.3-4.7 604) Cath Lab Radiology Technician ID - [id number] 06:31:00 Test Item Value Reference Range Interpretation Comments MAGNESIUM (BEAKER) (test code = 2.0 mg/dL 1.6-2.6 627) Cath Lab Radiology Technician ID - VALENTECOMPREHENSIVE METABOLIC [id number] 06:31:00 Test Item Value Reference Range Interpretation [...] S NOT APPLICABLE FOR DIALYSIS PATIEN TS. Cath Lab Radiology Technician ID - EMERSONBASIC METABOLIC [id number] 06:31:00 Test Item Value Reference Range Interpretation [...] S NOT APPLICABLE FOR DIALYSIS PATIEN TS. [id number] 06:13:00 Test Item Value Reference Range Interpretation Comments PARTIAL THROMBOPLASTIN TIME 72.0 seconds 22.5-36.0 H (BEAKER) (test code = 760) 6 hours after starting heparin infusion and as indicated per sliding scalePOCT- GLUCOSE [id number] 05:59:00 Test Item Value Reference Range Interpretation Comments POC-GLUCOSE METER 308 mg/dL 70-110 H : TESTED A T [facility] 6720 (BEAKER) (test code = [place], 1538) 0[address]: Cath Lab Radiology Technician/Techni lavinia ID = [id number] for ABRAHAM PEREZ CALCIUM, [id number] 04:01:00 Test Item Value Reference Range Interpretation Comments CALCIUM IONIZED (BEAKER) (test 1.13 mmol/L 1.12-1.27 code = 698) PH, BLOOD (BEAKER) (test code = 7.46 1810) BLOOD GAS, [id number] 04:01:00 Test Item Value Reference Range Interpretation [...] (test code = 1819) 70.0 % TROPONIN [id number] 01:35:00 Test Item Value Reference Range Interpretation [...] failure, acidosis, acute neurological disease, and persistent tachyarrhythmia.Cath Lab Radiology Technician ID - BSBASIC METABOLIC PANEL 2019-09-24 01:28:00 [...] S NOT APPLICABLE FOR DIALYSIS PATIEN TS. Cath Lab Radiology Technician ID - BSPOCT-GLUCOSE [id number] 00:03:00 Test Item Value Reference Range Interpretation Comments POC-GLUCOSE METER 213 mg/dL 70-110 H : TESTED A T [facility] 6720 (BEAKER) (test code = [facility] [place] [facility], 153) 60956: Cath Lab Radiology Technician/Techni lavinia ID = [id number] for EDD MUÑOZ [id number] 23:12:00 Test Item Value Reference Range Interpretation Comments PHOSPHORUS (BEAKER) (test code = 4.2 mg/dL 2.3-4.7 604) Cath Lab Radiology Technician ID - [id number] 23:12:00 Test Item Value Reference Range Interpretation Comments MAGNESIUM (BEAKER) (test code = 2.0 mg/dL 1.6-2.6 627) Cath Lab Radiology Technician ID - BSCALCIUM, [id number] 22:57:00 Test Item Value Reference Range Interpretation Comments CALCIUM IONIZED (BEAKER) (test 1.09 mmol/L 1.12-1.27 L code = 698) PH, BLOOD (BEAKER) (test code = 7.43 1810) BLOOD GAS, [id number] 21:24:00 Test Item Value Reference Range Interpretation [...] (test code = 1819) 45.0 % POCT-GLUCOSE [id number] 16:30:00 Test Item Value Reference Range Interpretation Comments POC-GLUCOSE METER 246 mg/dL 70-110 H : TESTED A T [facility] 6720 (BEAKER) (test code = [facility], 153) 26146: Cath Lab Radiology Technician/Techni lavniia ID = [id number] for FLAKITA BELTRAN BLOOD GAS, [id number] 15:59:00 Test Item Value Reference Range Interpretation [...] (BEAKER) (test code = 1819) 70.0 % [id number] 15:45:00 Test Item Value Reference Range Interpretation Comments POTASSIUM (BEAKER) (test code = 3.8 meq/L 3.5-5.1 379) Cath Lab Radiology Technician ID - [id number] 15:45:00 Test Item Value Reference Range Interpretation Comments MAGNESIUM (BEAKER) (test code = 2.2 mg/dL 1.6-2.6 627) Cath Lab Radiology Technician ID - AAHAMIDPOCT-GLUCOSE [id number] 12:00:00 Test Item Value Reference Range Interpretation Comments POC-GLUCOSE METER 277 mg/dL 70-110 H : TESTED A T [facility] 6720 (BEAKER) (test code = [place], 1538) 98656: Cath Lab Radiology Technician/Techni lavinia ID = [id number] for WILD HARRISON [id number] 11:57:00 Test Item Value Reference Range Interpretation Comments POTASSIUM (BEAKER) (test code = 3.8 meq/L 3.5-5.1 379) Cath Lab Radiology Technician ID - AAHAMIDBLOOD GAS, [id number] 09:30:00 Test Item Value Reference Range Interpretation [...] (test code = 1819) 70.0 % SARS-COV2/RT-PCR ([facility])2019-09-23 08:23:00 Test Item Value Reference Range Interpretation Comments SARS-COV2/RT-PCR (test code = Positive Not Detected, Negative A A [id number]) SARS-COV-2 PERFORMING LAB CPL (test code = 3399614) THROMBOELASTOGRAPH (TEG)2019-09-23 07:57:00 Test Item Value Reference [...] = 1413) CBC W/PLT COUNT & AUTO [id number] 06:18:00 Test Item Value Reference Range Interpretation [...] CONCENTRATION Adequate (CELLAVISION)(BEAKER) (test code = 3438) Cath Lab Radiology Technician ID - Valente Guzman comments: Slide comments:POCT-GLUCOSE METER 2019-09-23 05:50:00 Test Item Value Reference Range Interpretation Comments POC-GLUCOSE METER 221 mg/dL 70-110 H : TESTED A T [facility] 6720 (BEAKER) (test code = [facility] Yaneth [facility], 1538) 68928: Cath Lab Radiology Technician/Techni lavinia ID = [id number] for Victoria Sharif [id number] 05:46:00 Test Item Value Reference Range Interpretation [...] infusion and as indicated per sliding scale [id number] 05:22:00 Test Item Value Reference Range Interpretation Comments PHOSPHORUS (BEAKER) (test code = 3.9 mg/dL 2.3-4.7 604) Cath Lab Radiology Technician ID - [id number] 05:22:00 Test Item Value Reference Range Interpretation Comments MAGNESIUM (BEAKER) (test code = 1.9 mg/dL 1.6-2.6 627) Cath Lab Radiology Technician ID - LACOMPREHENSIVE METABOLIC [id number] 05:22:00 Test Item Value Reference Range Interpretation [...] S NOT APPLICABLE FOR DIALYSIS PATIEN TS. Cath Lab Radiology Technician ID - LABLOOD GAS, [id number] 05:03:00 Test Item Value Reference Range Interpretation [...] (test code = 1819) 55.0 % CALCIUM, [id number] 05:02:00 Test Item Value Reference Range Interpretation Comments CALCIUM IONIZED (BEAKER) (test 1.14 mmol/L 1.12-1.27 code = 698) PH, BLOOD (BEAKER) (test code = 7.48 1810) BLOOD GAS, [id number] 23:17:00 Test Item Value Reference Range Interpretation [...] (test code = 1819) 55.0 % POCT-GLUCOSE [id number] 23:15:00 Test Item Value Reference Range Interpretation Comments POC-GLUCOSE METER 211 mg/dL 70-110 H : [facility] (BEAKER) (test code = [place], 1538) 812[address]: Cath Lab Radiology Technician/Techni lavinia ID = [id number] for Gagandeep Dwyer BLOOD GAS, [id number] 19:10:00 Test Item Value Reference Range Interpretation [...] FIO2 rohan nged per code = 1819) [id number] is a corrected resul t. Previous result was 100.0 % on 09/21 at 0926 CDT POCT-GLUCOSE [id number] 18:13:00 Test Item Value Reference Range Interpretation Comments POC-GLUCOSE METER 265 mg/dL 70-110 H : TESTED A T [facility] 6720 (BEAKER) (test code = [facility], 1538) 9[address]13: Cath Lab Radiology Technician/Techni lavinia ID = [id number] for DEDE ROSALES BLOOD GAS, [id number] 18:11:00 Test Item Value Reference Range Interpretation [...] (test code = 1819) 55.0 % URIC [id number] 12:48:00 Test Item Value Reference Range Interpretation Comments URIC ACID (BEAKER) (test code = 3.6 mg/dL 2.6-7.2 773) Cath Lab Radiology Technician ID - DBBLOOD GAS, [id number] 12:27:00 Test Item Value Reference Range Interpretation [...] (test code = 1819) 60.0 % POCT-GLUCOSE [id number] 12:09:00 Test Item Value Reference Range Interpretation Comments POC-GLUCOSE METER 253 mg/dL 70-110 H : TESTED A T [facility] 6720 (BEAKER) (test code = K[facility] [place] [facility], 1538) 16479: Cath Lab Radiology Technician/Techni lavinia ID = [id number] for DEDE ROSALES [id number] 10:57:00 Test Item Value Reference Range Interpretation Comments FERRITIN (BEAKER) (test code = 1604.60 ng/mL 5.00-275.00 H 361) Cath Lab Radiology Technician ID - [id number] 10:18:00 Test Item Value Reference Range Interpretation Comments PROCALCITONIN (BEAKER) (test code 0.08 ng/mL <0.05 H = 3036) SEPSIS RISK (ng/mL)Low: 0.05-0.50Intermediate: 0.51-2.00High: >=2.01LACTATE DEHYDROGENASE (LDH)2019-09-22 09:47:00 Test Item Value Reference Range Interpretation Comments LACTATE DEHYDROGENASE (BEAKER) (test 463 U/L 125-220 H code = 635) Cath Lab Radiology Technician ID - DBC-REACTIVE [id number] 09:47:00 Test Item Value Reference Range Interpretation Comments C-REACTIVE PROTEIN (BEAKER) (test 0.64 mg/dL 0.00-0.50 H code = 676) Cath Lab Radiology Technician ID - [id number] 09:40:00 Test Item Value Reference Range Interpretation [...] exclusion of thrombosis is within 95-100% range. PT/[id number] 09:39:00 Test Item Value Reference Range Interpretation [...] mechanical heart valves.CBC W/PLT COUNT & AUTO [id number] 07:25:00 Test Item Value Reference Range Interpretation [...] CONCENTRATION Adequate (CELLAVISION)(BEAKER) (test code = 3438) Cath Lab Radiology Technician ID - Mary Ann comments: Slide comments:POCT-GLUCOSE [id number] 06:39:00 Test Item Value Reference Range Interpretation Comments POC-GLUCOSE METER 209 mg/dL 70-110 H : TESTED A T [facility] 6720 (BEAKER) (test code = [place], 1538) 7[address]: Cath Lab Radiology Technician/Techni lavinia ID = [id number] for EM ABRAHAM CRAIG CALCIUM, [id number] 04:53:00 Test Item Value Reference Range Interpretation Comments CALCIUM IONIZED (BEAKER) (test 1.16 mmol/L 1.12-1.27 code = 698) PH, BLOOD (BEAKER) (test code = 7.44 1810) OXYGEN SATURATION, [id number] 04:49:00 Test Item Value Reference Range Interpretation Comments O2 SATURATION (MEASURED) (BEAKER) 96.9 % (test code = 1455) CENTRAL LINE ONLY Please draw from central venous line - do NOT draw from arterial [id number] 04:22:00 Test Item Value Reference Range Interpretation Comments PHOSPHORUS (BEAKER) (test code = 4.1 mg/dL 2.3-4.7 604) Cath Lab Radiology Technician ID - [id number] 04:22:00 Test Item Value Reference Range Interpretation Comments MAGNESIUM (BEAKER) (test code = 2.0 mg/dL 1.6-2.6 627) Cath Lab Radiology Technician ID - LACOMPREHENSIVE METABOLIC [id number] 04:22:00 Test Item Value Reference Range Interpretation [...] S NOT APPLICABLE FOR DIALYSIS PATIEN TS. Cath Lab Radiology Technician ID - [id number] 04:20:00 Test Item Value Reference Range Interpretation Comments MAGNESIUM (BEAKER) (test code = 2.0 mg/dL 1.6-2.6 627) Cath Lab Radiology Technician ID - [id number] 04:08:00 Test Item Value Reference Range Interpretation Comments PARTIAL THROMBOPLASTIN TIME 66.1 seconds 22.5-36.0 H (BEAKER) (test code = 760) 6 hours after starting heparin infusion and as indicated per sliding scaleRAD, CHEST, 1 VIEW, NON [id number] 03:51:00Reason for exam:->On mechanical ventilationShould this be [...] V erified Date/Time: 09/22/2019 03:51:37 BLOOD GAS, [id number] 00:33:00 Test Item Value Reference Range Interpretation [...] (test code = 1819) 70.0 % POCT-GLUCOSE [id number] 00:16:00 Test Item Value Reference Range Interpretation Comments POC-GLUCOSE METER 237 mg/dL 70-110 H : TESTED A T [facility] 6720 (BEAKER) (test code = [facility], 1538) [id number]: Cath Lab Radiology Technician/Techni lavinia ID = [id number] for CESAR CRAIG CHIMAKA POCT-GLUCOSE [id number] 21:38:00 Test Item Value Reference Range Interpretation Comments POC-GLUCOSE METER 245 mg/dL 70-110 H : TESTED A T [facility] 6720 (BEAKER) (test code = [facility], 1538) [id number]: Cath Lab Radiology Technician/Techni lavinia ID = [id number] for CESAR CRAIG, FRANAKA POCT-GLUCOSE [id number] 18:32:00 Test Item Value Reference Range Interpretation Comments POC-GLUCOSE METER 236 mg/dL 70-110 H : TESTED A T [facility] 6720 (BEAKER) (test code = [facility], 1538) [id number]: Cath Lab Radiology Technician/Techni lavinia ID = [id number] for PATRICK JUAREZ [id number] 18:27:00 Test Item Value Reference Range Interpretation Comments PARTIAL THROMBOPLASTIN TIME 70.3 seconds 22.5-36.0 H (BEAKER) (test code = 760) BLOOD GAS, [id number] 18:15:00 Test Item Value Reference Range Interpretation [...] code = 1819) 60.0 % BASIC METABOLIC [id number] 15:48:00 Test Item Value Reference Range Interpretation [...] S NOT APPLICABLE FOR DIALYSIS PATIEN TS. Cath Lab Radiology Technician ID - NTPPOCT-GLUCOSE [id number] 11:59:00 Test Item Value Reference Range Interpretation Comments POC-GLUCOSE METER 262 mg/dL 70-110 H : TESTED A T [facility] 6720 (BEAKER) (test code = KVNG Wolfe [facility], 1538) [address]: Cath Lab Radiology Technician/Techni lavinia ID = [id number] for PATRICK JUAREZ BLOOD GAS, [id number] 10:22:00 Test Item Value Reference Range Interpretation [...] (BEAKER) (test code = 1819) 60.0 % [id number] 10:21:00 Test Item Value Reference Range Interpretation Comments PARTIAL THROMBOPLASTIN TIME 71.9 seconds 22.5-36.0 H (BEAKER) (test code = 760) CBC W/PLT COUNT & AUTO [id number] 07:30:00 Test Item Value Reference Range Interpretation [...] CONCENTRATION Adequate (CELLAVISION)(BEAKER) (test code = 3438) Cath Lab Radiology Technician ID - Mary Ann comments: Slide comments:POCT-GLUCOSE [id number] 06:29:00 Test Item Value Reference Range Interpretation Comments POC-GLUCOSE METER 229 mg/dL 70-110 H : Will Rep eat Test: (BEAKER) (test code = TESTED AT [facility] 6795 1681) [facility], [address]: Cath Lab Radiology Technician/Techni lavinia ID = [id number] for [facility] THROMBOELASTOGRAPH (TEG)2019-09-21 04:31:00 Test Item Value Reference [...] MM 55.0-65.0 H (test code = 1413) [id number] 04:25:00 Test Item Value Reference Range Interpretation Comments PHOSPHORUS (BEAKER) (test code = 3.2 mg/dL 2.3-4.7 604) Cath Lab Radiology Technician ID - BRI [id number] 04:25:00 Test Item Value Reference Range Interpretation Comments MAGNESIUM (BEAKER) (test code = 1.9 mg/dL 1.6-2.6 627) Cath Lab Radiology Technician ID - BRI MCOMPREHENSIVE METABOLIC [id number] 04:25:00 Test Item Value Reference Range Interpretation [...] S NOT APPLICABLE FOR DIALYSIS PATIEN TS. Cath Lab Radiology Technician ID - BRI [id number] 03:53:00 Test Item Value Reference Range Interpretation Comments PARTIAL THROMBOPLASTIN TIME 63.9 seconds 22.5-36.0 H (BEAKER) (test code = 760) 6 hours after starting heparin infusion and as indicated per sliding scale CALCIUM, [id number] 03:40:00 Test Item Value Reference Range Interpretation Comments CALCIUM IONIZED (BEAKER) (test 1.10 mmol/L 1.12-1.27 L code = 698) PH, BLOOD (BEAKER) (test code = 7.45 1810) OXYGEN SATURATION, [id number] 03:39:00 Test Item Value Reference Range Interpretation Comments O2 SATURATION (MEASURED) (BEAKER) 92.6 % (test code = 1455) CENTRAL LINE ONLY Please draw from central venous line - do NOT draw from arterial linePOCT-GLUCOSE [id number] 00:38:00 Test Item Value Reference Range Interpretation Comments POC-GLUCOSE METER 258 mg/dL 70-110 H : TESTED A [facility] 6720 (BEAKER) (test code = KVNG Wolfe [facility], 1538) [address]: Cath Lab Radiology Technician/Techni lavinia ID = [id number] for CA MELANY AARON BLOOD GAS, [id number] 00:36:00 Test Item Value Reference Range Interpretation [...] (test code = 1819) 70.0 % POCT-GLUCOSE [id number] 20:40:00 Test Item Value Reference Range Interpretation Comments POC-GLUCOSE METER 220 mg/dL 70-110 H : TESTED A T [facility] 6720 (BEAKER) (test code = KVNG Wolfe [facility], 153) [address]: Cath Lab Radiology Technician/Techni lavinia ID = [id number] for ME MELANY AARON [id number] 19:36:00 Test Item Value Reference Range Interpretation Comments PARTIAL THROMBOPLASTIN TIME 68.0 seconds 22.5-36.0 H (BEAKER) (test code = 760) BLOOD [id number] 19:00:00 Test Item Value Reference Range Interpretation Comments CULTURE (BEAKER) (test No growth in 5 days code = 1095) BLOOD [id number] 19:00:00 Test Item Value Reference Range Interpretation Comments CULTURE (BEAKER) (test No growth in 5 days code = 1095) BLOOD GAS, [id number] 18:41:00 Test Item Value Reference Range Interpretation [...] (test code = 1819) 70.0 % POCT-GLUCOSE [id number] 18:17:00 Test Item Value Reference Range Interpretation Comments POC-GLUCOSE METER 228 mg/dL 70-110 H : TESTED A T [facility] 6720 (BEAKER) (test code = [facility] Yaneth [facility], 153) [address]: Cath Lab Radiology Technician/Techni lavinia ID = [id number] for AM IN, JUICE BASIC METABOLIC [id number] 16:22:00 Test Item Value Reference Range Interpretation [...] S NOT APPLICABLE FOR DIALYSIS PATIEN TS. Cath Lab Radiology Technician ID - [id number] 14:18:00 Test Item Value Reference Range Interpretation Comments PARTIAL THROMBOPLASTIN TIME 65.8 seconds 22.5-36.0 H (BEAKER) (test code = 760) BLOOD GAS, [id number] 13:01:00 Test Item Value Reference Range Interpretation [...] (test code = 1819) 70.0 % POCT-GLUCOSE [id number] 12:38:00 Test Item Value Reference Range Interpretation Comments POC-GLUCOSE METER 271 mg/dL 70-110 H : TESTED A T [facility] 6720 (BEAKER) (test code = [place], 1538) [address]: Cath Lab Radiology Technician/Techni lavinia ID = [id number] for MARIANN LALA [id number] 11:22:00 Test Item Value Reference Range Interpretation Comments FERRITIN (BEAKER) (test code = 2208.69 ng/mL 5.00-275.00 H 361) Cath Lab Radiology Technician ID - MARIZA [id number] 10:43:00 Test Item Value Reference Range Interpretation [...] exclusion of thrombosis is within 95-100% range. [id number] 10:42:00 Test Item Value Reference Range Interpretation [...] is 2.5-3.5 for patients wiht mechanical heart valves.[id number] 10:40:00 Test Item Value Reference Range Interpretation Comments PROCALCITONIN (BEAKER) (test code 0.21 ng/mL <0.05 H = 3036) SEPSIS RISK (ng/mL)Low: 0.05-0.50Intermediate: 0.51-2.00High: >=2.01LACTATE DEHYDROGENASE (LDH)2019-09-20 10:19:00 Test Item Value Reference Range Interpretation Comments LACTATE DEHYDROGENASE 620 U/L 125-220 H Specim en slightly (BEAKER) (test code = hemoly zed 635) Cath Lab Radiology Technician ID - NTPC-REACTIVE [id number] 10:11:00 Test Item Value Reference Range Interpretation Comments C-REACTIVE PROTEIN (BEAKER) (test 2.08 mg/dL 0.00-0.50 H code = 676) Cath Lab Radiology Technician ID - NTPMISCELLANEOUS LAB [id number] 07:51:00 Test Item Value Reference Range Interpretation Comments SCAN RESULT (test code = 6625961) CBC W/PLT COUNT & AUTO [id number] 07:39:00 Test Item Value Reference Range Interpretation [...] CONCENTRATION Adequate (CELLAVISION)(BEAKER) (test code = 3438) Cath Lab Radiology Technician ID - Erin Moscoso comments: Slide comments:COMPREHENSIVE METABOLIC [id number] 05:50:00 Test Item Value Reference Range Interpretation [...] S NOT APPLICABLE FOR DIALYSIS PATIEN TS. Cath Lab Radiology Technician ID - MARIZA LPOCT-GLUCOSE [id number] 05:46:00 Test Item Value Reference Range Interpretation Comments POC-GLUCOSE METER 233 mg/dL 70-110 H : TESTED A T [facility] 6720 (BEAKER) (test code = [place], 1538) [address]: Cath Lab Radiology Technician/Techni lavinia ID = [id number] for LUIS CALLE [id number] 05:46:00 Test Item Value Reference Range Interpretation Comments PHOSPHORUS (BEAKER) (test code = 2.5 mg/dL 2.3-4.7 604) Cath Lab Radiology Technician ID - MARIZA [id number] 05:46:00 Test Item Value Reference Range Interpretation Comments MAGNESIUM (BEAKER) (test code = 1.9 mg/dL 1.6-2.6 627) Cath Lab Radiology Technician ID - MARIZA [id number] 05:11:00 Test Item Value Reference Range Interpretation Comments PARTIAL THROMBOPLASTIN TIME 63.7 seconds 22.5-36.0 H (BEAKER) (test code = 760) 6 hours after starting heparin infusion and as indicated per sliding scaleOXYGEN SATURATION, [id number] 05:03:00 Test Item Value Reference Range Interpretation Comments O2 SATURATION (MEASURED) (BEAKER) 82.3 % (test code = 1455) CENTRAL LINE ONLY Please draw from central venous line - do NOT draw from arterial lineCALCIUM, [id number] 05:02:00 Test Item Value Reference Range Interpretation Comments CALCIUM IONIZED (BEAKER) (test 1.02 mmol/L 1.12-1.27 L code = 698) PH, BLOOD (BEAKER) (test code = 7.45 1810) BLOOD GAS, [id number] 04:51:00 Test Item Value Reference Range Interpretation [...] (BEAKER) (test code = 1819) 70.0 % [id number] 00:13:00 Test Item Value Reference Range Interpretation Comments PARTIAL THROMBOPLASTIN TIME 62.4 seconds 22.5-36.0 H (BEAKER) (test code = 760) BLOOD GAS, [id number] 23:50:00 Test Item Value Reference Range Interpretation [...] (test code = 1819) 70.0 % POCT-GLUCOSE [id number] 23:33:00 Test Item Value Reference Range Interpretation Comments POC-GLUCOSE METER 311 mg/dL 70-110 H : TESTED A T [facility] 6720 (BEAKER) (test code = [facility], 1538) [address]: Cath Lab Radiology Technician/Techni lavinia ID = [id number] for TO LUIS SOLORIO POCT-GLUCOSE [id number] 20:48:00 Test Item Value Reference Range Interpretation Comments POC-GLUCOSE METER 324 mg/dL 70-110 H : TESTED A T [facility] 6720 (BEAKER) (test code = [facility], 1538) [address]: Cath Lab Radiology Technician/Techni lavinia ID = [id number] for TO LUIS SOLORIO [id number] 17:41:00 Test Item Value Reference Range Interpretation Comments PARTIAL THROMBOPLASTIN TIME 65.5 seconds 22.5-36.0 H (BEAKER) (test code = 760) BASIC METABOLIC [id number] 17:20:00 Test Item Value Reference Range Interpretation [...] S NOT APPLICABLE FOR DIALYSIS PATIEN TS. Cath Lab Radiology Technician ID - HANSA CPOCT-GLUCOSE [id number] 17:08:00 Test Item Value Reference Range Interpretation Comments POC-GLUCOSE METER 300 mg/dL 70-110 H : TESTED A T [facility] 6720 (BEAKER) (test code = [place], 1538) [address]: Cath Lab Radiology Technician/Techni lavinia ID = [id number] for JOY CRUZ BLOOD GAS, [id number] 17:07:00 Test Item Value Reference Range Interpretation [...] (test code = 1819) 70.0 % POCT-GLUCOSE [id number] 13:03:00 Test Item Value Reference Range Interpretation Comments POC-GLUCOSE METER 253 mg/dL 70-110 H : TESTED A T [facility] 6720 (BEAKER) (test code = KV[place], 1538) [address]: Cath Lab Radiology Technician/Techni lavinia ID = [id number] for FLAKITA BELTRAN BLOOD GAS, [id number] 13:01:00 Test Item Value Reference Range Interpretation [...] (BEAKER) (test code = 1819) 70.0 % [id number] 10:37:00 Test Item Value Reference Range Interpretation Comments PARTIAL THROMBOPLASTIN TIME 57.3 seconds 22.5-36.0 H (BEAKER) (test code = 760) BLOOD GAS, [id number] 07:12:00 Test Item Value Reference Range Interpretation [...] (test code = 1819) 70.0 % POCT-GLUCOSE [id number] 06:15:00 Test Item Value Reference Range Interpretation Comments POC-GLUCOSE METER 273 mg/dL 70-110 H : TESTED A T [facility] 6720 (BEAKER) (test code = [place], 1538) [address]: Cath Lab Radiology Technician/Techni lavinia ID = [id number] for Aimee madalynadoreSenait THROMBOELASTOGRAPH (TEG)2019-09-19 05:41:00 Test Item Value Reference [...] % 0.0-5.0 H code = 1414) CALCIUM, [id number] 05:30:00 Test Item Value Reference Range Interpretation Comments CALCIUM IONIZED (BEAKER) (test 1.04 mmol/L 1.12-1.27 L code = 698) PH, BLOOD (BEAKER) (test code = 7.38 1810) RAD, CHEST, 1 VIEW, NON [id number] 04:44:00Reason for exam:->COVID pneumonia w/ pulmonary edemaFINAL REPORT RAD, CHEST, 1 VIEW, NON DEPT INDICATION: COVID pneumonia w/ pulmonary edema COMPARISON: Prior day's exam FINDINGS: Portable frontal view of the chest. IMPRESSION: Support Lines: No significant change. Lungs and pleura: Airspace and pleural opacities are similar. No pneumothorax.Heart and mediastinum: Stable contours. Additional findings: None. Signed: Brett Goldberg MDReport Verified Date/Time: 09/19/2019 04:44:42 Electronically signed by: Mayelin VILLAREAL 09/19/2019 04:44 [id number] 04:42:00 Test Item Value Reference Range Interpretation Comments PARTIAL THROMBOPLASTIN TIME 70.5 seconds 22.5-36.0 H (BEAKER) (test code = 760) 6 hours after starting heparin infusion and as indicated per sliding scale COMPREHENSIVE METABOLIC [id number] 04:17:00 Test Item Value Reference Range Interpretation [...] S NOT APPLICABLE FOR DIALYSIS PATIEN TS. Cath Lab Radiology Technician ID - MARIZA [id number] 03:56:00 Test Item Value Reference Range Interpretation Comments PHOSPHORUS (BEAKER) (test code = 2.3 mg/dL 2.3-4.7 604) Cath Lab Radiology Technician ID - MARIZA [id number] 03:56:00 Test Item Value Reference Range Interpretation Comments MAGNESIUM (BEAKER) (test code = 2.0 mg/dL 1.6-2.6 627) Cath Lab Radiology Technician ID - MARIZA LCBC W/PLT COUNT & AUTO [id number] 03:32:00 Test Item Value Reference Range Interpretation [...] (BEAKER) (test code = 2801) OXYGEN SATURATION, [id number] 03:26:00 Test Item Value Reference Range Interpretation [...] (test code = 1819) 60.0 % POCT-GLUCOSE [id number] 00:08:00 Test Item Value Reference Range Interpretation Comments POC-GLUCOSE METER 277 mg/dL 70-110 H : TESTED A T [facility] 6720 (BEAKER) (test code = [place], 1538) [address]: Cath Lab Radiology Technician/Techni lavinia ID = [id number] for JAS RAMON CBC W/PLT COUNT & AUTO [id number] 22:02:00 Test Item Value Reference Range Interpretation [...] 0-0 (BEAKER) (test code = 413) POCT-GLUCOSE [id number] 21:39:00 Test Item Value Reference Range Interpretation Comments POC-GLUCOSE METER 169 mg/dL 70-110 H : TESTED A T [facility] 6720 (BEAKER) (test code = [place], 1538) [address]: Cath Lab Radiology Technician/Techni lavinia ID = [id number] for ANN MARIE DECKER [id number] 20:36:00 Test Item Value Reference Range Interpretation Comments PARTIAL THROMBOPLASTIN TIME 60.4 seconds 22.5-36.0 H (BEAKER) (test code = 760) [id number] 19:24:00 Test Item Value Reference Range Interpretation Comments MAGNESIUM (BEAKER) (test code = 2.1 mg/dL 1.6-2.6 627) Cath Lab Radiology Technician ID - HANSA CTSH/FREE T4 IF [id number] 18:24:00 Test Item Value Reference Range Interpretation Comments THYROID STIMULATING HORMONE 1.019 uIU/mL 0.350-4.940 (BEAKER) (test code = 772) Cath Lab Radiology Technician ID - HANSA CBASIC METABOLIC [id number] 17:53:00 Test Item Value Reference Range Interpretation [...] S NOT APPLICABLE FOR DIALYSIS PATIEN TS. Cath Lab Radiology Technician ID - MAY CCALCIUM, [id number] 17:34:00 Test Item Value Reference Range Interpretation Comments CALCIUM IONIZED (BEAKER) (test 1.08 mmol/L 1.12-1.27 L code = 698) PH, BLOOD (BEAKER) (test code = 7.42 1810) BLOOD GAS, [id number] 17:34:00 Test Item Value Reference Range Interpretation [...] (BEAKER) (test code = 1819) 60.0 % [id number] 17:32:00 Test Item Value Reference Range Interpretation Comments MAGNESIUM (BEAKER) (test code = 2.1 mg/dL 1.6-2.6 627) Cath Lab Radiology Technician ID - HANSA CPOCT-GLUCOSE [id number] 17:29:00 Test Item Value Reference Range Interpretation Comments POC-GLUCOSE METER 225 mg/dL 70-110 H : TESTED A T [facility] 6720 (BEAKER) (test code = [place], 1538) [address]: Cath Lab Radiology Technician/Techni lavinia ID = [id number] for HI LL, DELPHINE CREATINE KINASE (CK)2019-09-18 13:21:00 Test Item Value Reference Range Interpretation Comments CREATINE KINASE TOTAL (BEAKER) (test 262 U/L 29-200 H code = 380) Cath Lab Radiology Technician ID - HANSA CHEMOGLOBIN [id number] 13:15:00 Test Item Value Reference Range Interpretation Comments HEMOGLOBIN A1C (BEAKER) (test code = 7.8 % 4.3-6.1 H 368) URINALYSIS W/ REFLEX URINE [id number] 13:00:00 Test Item Value Reference Range Interpretation [...] /LPF 514) SOURCE(BEAKER) (test code = 2795) Cath Lab Radiology Technician ID - [auto]Cath Lab Radiology Technician ID - techPOCT-GLUCOSE [id number] 12:38:00 Test Item Value Reference Range Interpretation Comments POC-GLUCOSE METER 204 mg/dL 70-110 H : Notified RN/MD: (BEAKER) (test code = TESTED AT [facility] 6100 0764) [facility] [place], [address]: Cath Lab Radiology Technician/Techni lavinia ID = [id number] for CO LULY STANLEY BLOOD GAS, [id number] 12:27:00 Test Item Value Reference Range Interpretation [...] (BEAKER) (test code = 1819) 50.0 % [id number] 10:20:00 Test Item Value Reference Range Interpretation Comments FERRITIN (BEAKER) (test code = 2093.57 ng/mL 5.00-275.00 H 361) Cath Lab Radiology Technician ID - HANSA CCBC W/PLT COUNT & AUTO [id number] 09:33:00 Test Item Value Reference Range Interpretation [...] CONCENTRATION Adequate (CELLAVISION)(BEAKER) (test code = 3438) Cath Lab Radiology Technician ID - Elvira Domínguez comments: Slide comments:[id number] 09:26:00 Test Item Value Reference Range Interpretation [...] 568 U/L 125-220 H code = 635) Cath Lab Radiology Technician ID - HANSA CC-REACTIVE [id number] 09:11:00 Test Item Value Reference Range Interpretation Comments C-REACTIVE PROTEIN (BEAKER) (test 12.51 mg/dL 0.00-0.50 H code = 676) Cath Lab Radiology Technician ID - HANSA [id number] 09:03:00 Test Item Value Reference Range Interpretation [...] wiht mechanical heart valves.SPUTUM CULTURE + GRAM [id number] 08:35:00 Test Item Value Reference Range Interpretation Comments CULTURE (BEAKER) 1+ Normal respiratory (test code = 1095) alyse present GRAM STAIN RESULT 3+ White blood cells (BEAKER) (test code = seen 1123) GRAM STAIN RESULT 0-5 epithelial cells (BEAKER) (test code = 78251) GRAM STAIN RESULT No organisms seen (BEAKER) (test code = 08460) BLOOD GAS, [id number] 06:09:00 Test Item Value Reference Range Interpretation [...] (test code = 1819) 60.0 % POCT-GLUCOSE [id number] 06:06:00 Test Item Value Reference Range Interpretation Comments POC-GLUCOSE METER 271 mg/dL 70-110 H : TESTED A T [facility] 6720 (BEAKER) (test code = [place], 1538) [address]: Cath Lab Radiology Technician/Techni lavinia ID = [id number] for CH UA, JOEON COMPREHENSIVE METABOLIC [id number] 03:59:00 Test Item Value Reference Range Interpretation [...] S NOT APPLICABLE FOR DIALYSIS PATIEN TS. Cath Lab Radiology Technician ID - BRI [id number] 03:56:00 Test Item Value Reference Range Interpretation Comments PHOSPHORUS (BEAKER) (test code = 2.3 mg/dL 2.3-4.7 604) Cath Lab Radiology Technician ID - BRI [id number] 03:56:00 Test Item Value Reference Range Interpretation Comments MAGNESIUM (BEAKER) (test code = 2.1 mg/dL 1.6-2.6 627) Cath Lab Radiology Technician ID - BRI [id number] 03:53:00 Test Item Value Reference Range Interpretation Comments PARTIAL THROMBOPLASTIN TIME 54.3 seconds 22.5-36.0 H (BEAKER) (test code = 760) 6 hours after starting heparin infusion and as indicated per sliding scaleRAD, CHEST, 1 VIEW, NON [id number] 03:48:00Reason for exam:->COVID pneumonia w/ pulmonary edemaFINAL [...] None. Signed: Saeed Morris MDReport Verified Date/Time: 09/18/2019 03:48:20 OXYGEN SATURATION, [id number] 03:24:00 Test Item Value Reference Range Interpretation [...] (test code = 1819) 60.0 % POCT-GLUCOSE [id number] 00:17:00 Test Item Value Reference Range Interpretation Comments POC-GLUCOSE METER 264 mg/dL 70-110 H : TESTED A T [facility] 6720 (BEAKER) (test code = [place], 1538) [address]: Cath Lab Radiology Technician/Techni lavinia ID = [id number] for ARIE MCGREGOR [id number] 20:36:00 Test Item Value Reference Range Interpretation Comments PARTIAL THROMBOPLASTIN TIME 55.3 seconds 22.5-36.0 H (BEAKER) (test code = 760) Prior to initiating heparinBASIC METABOLIC [id number] 18:43:00 Test Item Value Reference Range Interpretation [...] S NOT APPLICABLE FOR DIALYSIS PATIEN TS. Cath Lab Radiology Technician ID - [id number] 18:42:00 Test Item Value Reference Range Interpretation Comments MAGNESIUM (BEAKER) (test code = 2.0 mg/dL 1.6-2.6 627) Cath Lab Radiology Technician ID - EMERSONBLOOD GAS, [id number] 18:29:00 Test Item Value Reference Range Interpretation [...] (test code = 1819) 60.0 % CALCIUM, [id number] 18:29:00 Test Item Value Reference Range Interpretation Comments CALCIUM IONIZED (BEAKER) (test 1.05 mmol/L 1.12-1.27 L code = 698) PH, BLOOD (BEAKER) (test code = 7.41 1810) Check serum Ionized Calcium level after 4 hours after IV Calcium replacement. POCT-GLUCOSE [id number] 18:17:00 Test Item Value Reference Range Interpretation Comments POC-GLUCOSE METER 216 mg/dL 70-110 H : TESTED A T [facility] 6720 (BEAKER) (test code = [facility] [place]l [facility], 153) [address]: Cath Lab Radiology Technician/Techni lavinia ID = [id number] for [place] TABATHA, STEFANIA [id number] 16:26:00 Test Item Value Reference Range Interpretation Comments PARTIAL THROMBOPLASTIN TIME 47.8 seconds 22.5-36.0 H (BEAKER) (test code = 760) [id number] 15:28:00 Test Item Value Reference Range Interpretation Comments POTASSIUM (BEAKER) (test code = 2.1 meq/L 3.5-5.1 LL 379) Cath Lab Radiology Technician ID - EMERSONCALCIUM, [id number] 12:55:00 Test Item Value Reference Range Interpretation Comments CALCIUM IONIZED (BEAKER) (test 0.98 mmol/L 1.12-1.27 L code = 698) PH, BLOOD (BEAKER) (test code = 7.41 1810) POCT-GLUCOSE [id number] 12:33:00 Test Item Value Reference Range Interpretation Comments POC-GLUCOSE METER 296 mg/dL 70-110 H : TESTED A T [facility] 6720 (BEAKER) (test code = [facility], 1538) [address]: Cath Lab Radiology Technician/Techni lavinia ID = [id number] for [place] TABATHA, STEFANIA BLOOD GAS, [id number] 12:24:00 Test Item Value Reference Range Interpretation [...] 70.0 % CBC W/PLT COUNT & AUTO [id number] 10:09:00 Test Item Value Reference Range Interpretation [...] CONCENTRATION Adequate (CELLAVISION)(BEAKER) (test code = 3438) Cath Lab Radiology Technician ID - Rebeka Palmer comments: Slide comments:OXYGEN SATURATION, [id number] 08:54:00 Test Item Value Reference Range Interpretation Comments O2 SATURATION (MEASURED) (BEAKER) 85.9 % (test code = 1455) Please verify this is drawn from central line - NOT arterial lineRAD, CHEST, 1 VIEW, NON [id number] 08:31:00Reason for exam:->COVID pneumonia w/ pulmonary edemaFINAL [...] MDReport Verified Date/Time: 09/17/2019 08:31:34 Reading Location: [facility] Radiology Reading Room BLOOD GAS, ARTERIAL 2019-09-17 [...] (BEAKER) (test code = 1819) 70.0 % [id number] 07:42:00 Test Item Value Reference Range Interpretation Comments PHOSPHORUS (BEAKER) (test code = 4.1 mg/dL 2.3-4.7 604) Cath Lab Radiology Technician ID - [id number] 07:42:00 Test Item Value Reference Range Interpretation Comments MAGNESIUM (BEAKER) (test code = 1.9 mg/dL 1.6-2.6 627) Cath Lab Radiology Technician ID - DBCOMPREHENSIVE METABOLIC [id number] 07:42:00 Test Item Value Reference Range Interpretation [...] S NOT APPLICABLE FOR DIALYSIS PATIEN TS. Cath Lab Radiology Technician ID - DBCALCIUM, [id number] 06:32:00 Test Item Value Reference Range Interpretation Comments CALCIUM IONIZED (BEAKER) (test 0.92 mmol/L 1.12-1.27 L code = 698) PH, BLOOD (BEAKER) (test code = 7.39 1810) OXYGEN SATURATION, [id number] 06:19:00 Test Item Value Reference Range Interpretation [...] % 0.0-5.0 G=18.9K code = 1414) POCT-GLUCOSE [id number] 05:41:00 Test Item Value Reference Range Interpretation Comments POC-GLUCOSE METER 263 mg/dL 70-110 H : TESTED A T [facility] 6720 (BEAKER) (test code = KVNG [place], 1538) [id number]: Cath Lab Radiology Technician/Techni lavinia ID = [id number] for AT [facility] [id number] 05:35:00 Test Item Value Reference Range Interpretation Comments PARTIAL THROMBOPLASTIN TIME 36.7 seconds 22.5-36.0 H (BEAKER) (test code = 760) 6 hours after starting heparin infusion and as indicated per sliding scaleBLOOD GAS, [id number] 23:45:00 Test Item Value Reference Range Interpretation [...] (test code = 1819) 60.0 % POCT-GLUCOSE [id number] 23:09:00 Test Item Value Reference Range Interpretation Comments POC-GLUCOSE METER 216 mg/dL 70-110 H : TESTED A T [facility] 6720 (BEAKER) (test code = [facility] [place], 1538) [id number]: Cath Lab Radiology Technician/Techni lavinia ID = [id number] for MARIA D MONREAL POCT-GLUCOSE [id number] 18:16:00 Test Item Value Reference Range Interpretation Comments POC-GLUCOSE METER 127 mg/dL 70-110 H : TESTED A T [facility] 6720 (BEAKER) (test code = [facility] [place], 1538) [address]: Cath Lab Radiology Technician/Techni lavinia ID = [id number] for CINDA WALTER BLOOD GAS, [id number] 18:03:00 Test Item Value Reference Range Interpretation [...] code = 1819) 60.0 % BASIC METABOLIC [id number] 16:48:00 Test Item Value Reference Range Interpretation [...] S NOT APPLICABLE FOR DIALYSIS PATIEN TS. Cath Lab Radiology Technician ID - [id number] 16:44:00 Test Item Value Reference Range Interpretation Comments PARTIAL THROMBOPLASTIN TIME 34.1 seconds 22.5-36.0 (BEAKER) (test code = 760) Prior to initiating [id number] 16:43:00 Test Item Value Reference Range Interpretation Comments FERRITIN (BEAKER) (test code = 913.66 ng/mL 5.00-275.00 H 361) Cath Lab Radiology Technician ID - NTPCBC (HEMOGRAM ONLY)2019-09-16 16:36:00 Test [...] H (test code = 1413) BLOOD GAS, [id number] 13:13:00 Test Item Value Reference Range Interpretation [...] (BEAKER) (test code = 1819) 80.0 % [id number] 12:21:00 Test Item Value Reference Range Interpretation [...] exclusion of thrombosis is within 95-100% range. [id number] 12:03:00 Test Item Value Reference Range Interpretation Comments PHOSPHORUS (BEAKER) (test code = 3.2 mg/dL 2.3-4.7 604) Cath Lab Radiology Technician ID - [id number] 12:03:00 Test Item Value Reference Range Interpretation Comments MAGNESIUM (BEAKER) (test code = 1.9 mg/dL 1.6-2.6 627) Cath Lab Radiology Technician ID - NTPC-REACTIVE [id number] 12:01:00 Test Item Value Reference Range Interpretation Comments C-REACTIVE PROTEIN (BEAKER) (test 20.44 mg/dL 0.00-0.50 H code = 676) Cath Lab Radiology Technician ID - NTPBLOOD GAS, [id number] 11:38:00 Test Item Value Reference Range Interpretation [...] (test code = 1819) 100.0 % POCT-GLUCOSE [id number] 11:28:00 Test Item Value Reference Range Interpretation Comments POC-GLUCOSE METER 92 mg/dL 70-110 : TESTED A T [facility] 6720 (BEAKER) (test code = [place], 1538) [address]: Cath Lab Radiology Technician/Techni lavinia ID = [id number] for FLAKITA HWANG LACTATE DEHYDROGENASE (LDH)2019-09-16 11:05:00 Test Item Value Reference Range Interpretation Comments LACTATE DEHYDROGENASE 929 U/L 125-220 H Specim en slightly (BEAKER) (test code = hemoly zed 635) Cath Lab Radiology Technician ID - NTPLEGIONELLA ANTIGEN, [id number] 07:55:00 Test Item Value Reference Range Interpretation Comments L. PNEUMOPHILA Negative - see Negative fo r L. SEROGP 1 UR AG comment pneumophila (GUERO) (test code serogrou p 1 antigen, = 1156) suggesting no r ecent or current infe ction with this serog roup. Legionellosis c annot be ruled out si nce other serogroup s and species may cau se disease. STREP PNEUMONIAE [id number] 07:54:00 Test Item Value Reference Range Interpretation Comments STREP PNEUMONIAE Presumptive negative Presumptive negative ANTIGEN ([facility]) for pneumococcal for pneumococcal (test code = 1615) pneumonia - see pneumonia - see comment commen Presumptive negative for pneumococcal pneumonia, suggesting no current or recent pneumococcal infection. Infection due to S. pneumoniae cannot be ruled out since the antigen present in the sample may be below the detection limit of the test.TROPONIN [id number] 07:26:00 Test Item Value Reference Range Interpretation Comments TROPONIN I (GUERO) (test code = 0.16 ng/mL 0.00-0.03 H [...] failure, acidosis, acute neurological disease, and persistent tachyarrhythmia.Cath Lab Radiology Technician ID - PIAYA LCOMPREHENSIVE METABOLIC [id number] 07:19:00 Test Item Value Reference Range Interpretation Comments TOTAL PROTEIN 5.4 gm/dL 6.0-8.3 L (AKER) (test code = 770) ALBUMIN (AKER) 2.6 g/dL 3.5-5.0 L (test code = [...] S NOT APPLICABLE FOR DIALYSIS PATIEN TS. Cath Lab Radiology Technician ID - PIBERNADINE [id number] 07:18:00 Test Item Value Reference Range Interpretation Comments PHOSPHORUS (BEAKER) (test code = 3.8 mg/dL 2.3-4.7 604) Cath Lab Radiology Technician ID - PIAYA [id number] 07:18:00 Test Item Value Reference Range Interpretation Comments MAGNESIUM (BEAKER) (test code = 2.0 mg/dL 1.6-2.6 627) Cath Lab Radiology Technician ID - PIBERNADINE LC-REACTIVE [id number] 07:18:00 Test Item Value Reference Range Interpretation Comments C-REACTIVE PROTEIN (BEAKER) (test 19.31 mg/dL 0.00-0.50 H code = 676) Cath Lab Radiology Technician ID - PIBERNADINE LBLOOD GAS, [id number] 07:00:00 Test Item Value Reference Range Interpretation [...] (test code = 1819) 100.0 % CALCIUM, [id number] 05:46:00 Test Item Value Reference Range Interpretation Comments CALCIUM IONIZED (BEAKER) (test 0.95 mmol/L 1.12-1.27 L code = 698) PH, BLOOD (BEAKER) (test code = 7.39 1810) CBC W/PLT COUNT & AUTO [id number] 05:38:00 Test Item Value Reference Range Interpretation [...] H PERCENT (BEAKER) (test code = 2801) [id number] 05:27:00 Test Item Value Reference Range Interpretation Comments FERRITIN (BEAKER) (test code = 631.69 ng/mL 5.00-275.00 H 361) Cath Lab Radiology Technician ID - PIAYA LTHROMBOELASTOGRAPH (TEG)2019-09-16 02:43:00 Test [...] 0.0-5.0 G=15.8k code = 1414) BLOOD GAS, [id number] 01:56:00 Test Item Value Reference Range Interpretation [...] 100.0 % CBC W/PLT COUNT & AUTO [id number] 01:34:00 Test Item Value Reference Range Interpretation [...] CONCENTRATION Adequate (CELLAVISION)(BEAKER) (test code = 3438) Cath Lab Radiology Technician ID - Yogi Cohen comments: Slide comments:HEPATITIS B PANEL 2019-09-16 00:51:00 Test Item Value Reference Range Interpretation Comments HEPATITIS B CORE TOTAL ANTIBODY Nonreactive Nonreactive (BEAKER) (test code = 497) HEPATITIS B SURFACE ANTIBODY < mIU/mL <8.0 (BEAKER) (test code = 647) HEPATITIS B SURFACE ANTIGEN (2) Nonreactive Nonreactive (BEAKER) (test code = 2585) Cath Lab Radiology Technician ID Osmani DAWKINS LHEPATITIS C [id number] 00:27:00 Test Item Value Reference Range Interpretation Comments HEPATITIS C ANTIBODY (BEAKER) Nonreactive Nonreactive (test code = 367) Cath Lab Radiology Technician ID Osmani DAWKINS LHIV-1 ANTIGEN WITH HIV-1/2 [id number] 00:27:00 Test Item Value Reference Range Interpretation Comments HIV-1 ANTIGEN WITH HIV 1\\T\\2 Nonreactive Nonreactive ANTIBODY (2) (BEAKER) (test code = 2586) Cath Lab Radiology Technician ID Osmani DAWKINS LTROPONIN [id number] 00:18:00 Test Item Value Reference Range Interpretation [...] failure, acidosis, acute neurological disease, and persistent tachyarrhythmia.Cath Lab Radiology Technician ID Osmani DAWKINS LLACTATE DEHYDROGENASE (LDH)2019-09-16 00:18:00 Test Item Value Reference Range Interpretation Comments LACTATE DEHYDROGENASE 979 U/L 125-220 H Specim en slightly (BEAKER) (test code = hemoly zed 635) Cath Lab Radiology Technician ID Osmani DAWKINS LCREATINE KINASE (CK)2019-09-16 00:07:00 Test Item Value Reference Range Interpretation Comments CREATINE KINASE TOTAL (AIMEEAKER) (test 1175 U/L 29-200 H code = 380) Cath Lab Radiology Technician ID Osmani DAWKINS LC-REACTIVE [id number] 00:07:00 Test Item Value Reference Range Interpretation Comments C-REACTIVE PROTEIN (AIMEEAKER) (test 18.83 mg/dL 0.00-0.50 H code = 676) Cath Lab Radiology Technician ID - MARIZA LLACTIC ACID, [id number] 00:02:00 Test Item Value Reference Range Interpretation Comments LACTATE BLOOD 1.4 mmol/L 0.5-2.2 Specimen sligh tly ARTERIAL (2) (BEAKER) hemoly zed (test code = 2874) Cath Lab Radiology Technician ID - MARIZA [id number] 00:01:00 Test Item Value Reference Range Interpretation [...] of thrombosis is within 95-100% range.BLOOD GAS, [id number] 23:59:00 Test Item Value Reference Range Interpretation [...] code = 1819) 100.0 % BLOOD GAS, [id number] 23:59:00 Test Item Value Reference Range Interpretation [...] (BEAKER) (test code = 1819) 100.0 % [id number] 23:52:00 Test Item Value Reference Range Interpretation Comments PARTIAL THROMBOPLASTIN TIME 28.0 seconds 22.5-36.0 (BEAKER) (test code = 760) PROTHROMBIN TIME/[id number] 23:51:00 Test Item Value Reference Range Interpretation [...] is 2.5-3.5 for patients wiht mechanical heart valves.[id number] 23:51:00 Test Item Value Reference Range Interpretation Comments FIBRINOGEN LEVEL (BEAKER) (test 668 mg/dl 225-434 H code = 658) RAD, CHEST, 1 VIEW, NON [id number] 23:46:00Reason for exam:->CVC line placementShould this be [...] Date/Time: 09/15/2019 23:46:51 RAD, ABDOMEN/KUB, 1 VIEW [id number] 23:46:00Reason for exam:->abdominal distentionShould this be performed [...] MDReport Verified Date/Time: 09/15/2019 23:46:51 RESPIRATORY PANEL [id number] 21:29:00 Test Item Value Reference Range Interpretation [...] decisions. This sample was tested at the [facility] using the Generate FilmArray Respiratory Panel. It is FDA cleared and has been verified and approved by the [facility] for clinical use on nasopharyngeal swab specimens.The performance of the FilmArrayRP has not been established in individuals who received influenza vaccine. Recent administration of a nasal influenza vaccine may cause false positive results for Influenza A and/orInfluenza B.RAD, CHEST, 1 VIEW, NON [id number] 20:14:00Reason for exam:->FEVERReason for exam:->GENERALIZED WEAKNESS, NOT [...] Stable contours. Additional findings:None. Signed: Joi Pineda MDReport Verified Date/Time: 09/15/2019 20:14:26 Reading Location: [address] Neuro Reading Room -COV2/RT-PCR ([facility])2019-09-15 18:58:00 Test Item Value Reference Range Interpretation Comments SARS-COV2/RT-PCR (test code = Detected Not Detected, Negative A A 5505222) SARS-COV-2 PERFORMING LAB [facility] (test code = 0710681) Results are for the detection of SARS-CoV-2 [...] copies/mL.This SARS CoV-2 test is a rapid, pjhi-luxbRC-AAI test intended for the qualitative detection of [...] 564(g) of the Act.Fact Sheet for Healthcare Providers:https://www.[employer]/ Documents/Xpert%20Xpress%20SARS%20CoV-2/Fact%20Sheets/3023802%96NOQF-FAN-9%20HE ALTHCARE%20PROVIDERS%20FACT%20SHEET.pdfFact Sheet for Healthcare Patients:https://www.[employer]/Documents/Xpert%20Xpress %20SARS%20CoV-2/Fact%20Sheets/302-3801%24CJAS-QMR-2%20PATIENT%20FACT%20SHEET.pdf Performing Laboratory:[facility], [place] [id number] 18:13:00 Test Item Value Reference Range Interpretation Comments PROCALCITONIN (BEAKER) (test code 0.19 ng/mL <0.05 H = 3036) SEPSIS RISK (ng/mL)Low: 0.05-0.50Intermediate: 0.51-2.00High: >=2.01TSH/FREE T4 IF [id number] 18:05:00 Test Item Value Reference Range Interpretation Comments THYROID STIMULATING HORMONE 0.641 uIU/mL 0.350-4.940 (BEAKER) (test code = 772) Cath Lab Radiology Technician ID - HANSA CCBC W/PLT COUNT & AUTO [id number] 17:50:00 Test Item Value Reference Range Interpretation [...] CONCENTRATION Adequate (CELLAVISION)(BEAKER) (test code = 3438) Cath Lab Radiology Technician ID - jaymie Prado comments: Slide comments:RAD, CHEST, 1 VIEW, NON [id number] 17:49:00Reason for exam:->FEVERReason for exam:- >GENERALIZED WEAKNESS, [...] pulmonary edema. Signed: Christiano Mejia MDReport Verified Date/Time: 09/15/2019 17:49:30 Reading Location: [address] Radiology Reading Room B-TYPE NATRIURETIC FACTOR (BNP)2019-09-15 17:45:00 Test Item Value Reference Range Interpretation Comments B-TYPE NATRIURETIC PEPTIDE (BEAKER) 514 pg/mL 0-100 H (test code = 700) Cath Lab Radiology Technician ID - HANSA CTROPONIN [id number] 17:45:00 Test Item Value Reference Range Interpretation [...] failure, acidosis, acute neurological disease, and persistent tachyarrhythmia.Cath Lab Radiology Technician ID - HANSA [id number] 17:37:00 Test Item Value Reference Range Interpretation Comments PHOSPHORUS (BEAKER) (test code = 2.9 mg/dL 2.3-4.7 604) Cath Lab Radiology Technician ID - HANSA [id number] 17:37:00 Test Item Value Reference Range Interpretation Comments MAGNESIUM (BEAKER) (test code = 2.0 mg/dL 1.6-2.6 627) Cath Lab Radiology Technician ID - HANSA CBASIC METABOLIC [id number] 17:37:00 Test Item Value Reference Range Interpretation [...] S NOT APPLICABLE FOR DIALYSIS PATIEN TS. Cath Lab Radiology Technician ID - HANSA CLACTIC ACID, [id number] 17:25:00 Test Item Value Reference Range Interpretation Comments LACTATE BLOOD VENOUS 2.20 mmol/L 0.50-2.20 Specime n slightly (2) (BEAKER) (test hemolyzed code = 2872) Cath Lab Radiology Technician ID - DBBLOOD GAS, [id number] 17:22:00 Test Item Value Reference Range Interpretation [...] = 1819) 100.0 % RAD, CHEST, 2 [id number] 10:40:00Reason for Exam:->G28Ipiytf for Exam:- >J44.9Reason for Exam:->E78.5Reason for Exam:->I71.4Reason for Exam:- >E11.65Reason for Exam:->Z79.899Reason for Exam:->R09.89FINAL REPORT Chest, 2 views. Clinical History: I10J44.9E78.5I71.4E11.65Z79.899R09.89 Comparison Study: October 13, 2017 Findings: The heart and lungs are within normal limits. The pleural spaces are clear. Degenerative changes are seen. Impression: No active cardiopulmonary disease. Si gned: Domingo Jeffries MDReport Verified Date/Time: 11/09/2018 10:40:00 Reading Location: [facility] Radiology Reading Room RAD, CHEST, 2 [id number] 13:57:00 Reason for Exam:->Essential (primary) hypertension [I10]FINAL REPORT INDICATION: Essential (primary) hypertension [I10] COMPARISON: Apri 2016 TECHNIQUE: Chest radiograph, two views, PA and lateral. FINDINGS / IMPRESSION:Lung volumes are normal and there is no evidence of pneumonia or pulmonary edema. No pneumothorax or pleural effusion is demonstrated. There is mild enlargement cardiac silhouette. Thoracic vertebral mild degenerative changes noted. Signed: Keyona Green [facility] Verified Date/Time: 10/13/2017 13:57:52 ReadingLocation: [facility] [address] [place] [address] Radiology Reading Room
[2022-02-11] MEDS ORDERED: MORPHINE 2 MG/ML SYR IV PRN (00:54)
[2022-02-11] MEDS ORDERED: LORazepam 2 MG/ML VIAL IV PRN (00:57)
[2022-02-11] MEDS ORDERED: ONDANSETRON 4 MG/2 ML VIAL IV PRN (00:59)
[2022-02-11] MEDS ORDERED: ACETAMINOPHEN 650MG/RECT SUPP PR PRN (01:01)
[2022-02-11] MEDS ORDERED: BISACODYL 10 MG RECTAL SUPP PR PRN (01:02)
[2022-02-11 01:06] VITALS: TEMP 97.3
[2022-02-11] MEDS ORDERED: SCOPOLAMINE HYDROBROMIDE PATCH TD ONE (01:15)
[2022-02-11 06:38] VITALS: BMI 32.9
[2022-02-11 13:58] VITALS: O2SAT 93
[2022-02-11 16:10] VITALS: BP 87/47
[2022-02-14] MEDS ORDERED: SCOPOLAMINE HYDROBROMIDE PATCH TD SCH (09:00)
== END 2022-02-11 16:00 | disposition hospice, home (50) | DRG 951 ==
LOC: 3RD-ICU 19:34
PROVIDERS: ADMIT Internal Medicine Hematology & Oncology; ATTEND Internal Medicine Hematology & Oncology
DX: Z51.5 Encounter for palliative care (principal)
CPT/HCPCS: 94760